=== PATIENT | male | born 2000 | race Caucasian/White ===

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

== ENCOUNTER 2018-03-05 22:55 | Emergency (ER) | payer MEDICAID, OTHER ==
[~2018-03-05 22:55] MED LIST changes: +BACT800T5 PO; +CEPH500T PO; -ZOFR20TA PO; +ZOFR4TAB16 PO
[2018-03-05] MEDS ORDERED: dexameTHASONE 20 MG/5 ML VIAL (J1100) IV ONE (23:15)
[2018-03-05] MEDS ORDERED: IPRATROPIUM 0.02% SOLN 0.5MG/2.5 ML NEB INH ONE (23:15)
[2018-03-06 00:09] LABS: INFLUENZA A AMPLIFICATION NEGATIVE (NEGATIVE); INFLUENZA B AMPLIFICATION NEGATIVE (NEGATIVE)
[2018-03-06 00:31] VITALS: BP 111/56
[2018-03-06] MEDS ORDERED: PRED20TA PO (00:32)
--- NOTE | 2018-03-06 06:23 | REP ---
Clinical: Cough . Comparison: 01/01/2017 . Technique: PA and lateral. Findings: The mediastinum and cardiac silhouette are normal. The lung leiva are clear and without acute consolidation, effusion, or pneumothorax. The skeletal structures are intact and normal. Impression: 1. No acute cardiopulmonary process. Electronically Signed by Jovanni Alas MD 03/06/2018 06:15 A
== END 2018-03-06 00:40 | disposition left against medical advice (07) ==
LOC: EDBD 22:55 → M ED 22:55
DX: J40 Bronchitis, not specified as acute or chronic (principal)
CPT/HCPCS: 71046; 87502; 94640; 96374; 99284; J1100

== ENCOUNTER → 2018-04-30 | Outpatient (REF) | payer OTHER ==
[~2018-04-30] MED LIST changes: +EX-L15TA PO; +MIRA3350 PO; +OMEP40CA2 PO; +PRED20TA PO; +PREV1CAP PO
== END ==
LOC: M SFHCPLAZ 10:02
PROVIDERS: ATTEND Family Medicine
DX: Z53.9 Procedure and treatment not carried out, unspecified reason (principal); R05 Cough

== ENCOUNTER 2018-05-27 19:28 | Observation (INO) | payer OTHER ==
[~2018-05-27] VITALS: Ht 157.5 cm; Wt 45.0 kg
[~2018-05-27 19:28] MED LIST changes: -EX-L15TA PO; -MIRA3350 PO; -OMEP40CA2 PO; -PREV1CAP PO
[2018-05-27] MEDS ORDERED: ONDANSETRON 4MG/2ML VIAL (J2405) IV ONE (20:00)
[2018-05-27] MEDS ORDERED: MORPHINE 4 MG/ML 1ML VIAL/SYRINGE (J2270) IV ONE (20:00)
[2018-05-27] MEDS ORDERED: NS 1,000 ML IV ONE (20:00)
[2018-05-27 20:26] LABS: BASO % 0.5 % (0.0-1.0); EOS % 0.2 % (0.0-3.0); HEMATOCRIT 45.3 % (42.0-52.0); HEMOGLOBIN 16.2 g/dl (13.5-17.5); LYMPH # 1.3 10^3/uL (1.5-6.5); LYMPH % 16.3 % (24.0-44.0); MEAN CORPUSCULAR HEMOGLOBIN 27.5 pg (27.0-33.0); MEAN CORPUSCULAR HGB CONC 35.8 g/dl (32.0-36.5); MEAN CORPUSCULAR VOLUME 76.8 fl (80.0-96.0); MONO # 0.2 10^3/uL (0.0-0.8); MONO % 2.7 % (0.0-5.0); NEUTROPHILS # 6.5 10^3/uL (1.8-7.7); NEUTROPHILS % 79.8 % (36.0-66.0); PLATELET COUNT, AUTOMATED 152 10^3/uL (150-450); WHITE BLOOD COUNT 8.1 10^3/uL (4.0-10.0)
[2018-05-27 20:31] LABS: INR 1.21; PROTHROMBIN TIME 15.5 SECONDS (12.1-14.4)
[2018-05-27 20:32] LABS: PARTIAL THROMBOPLASTIN TIME 28.1 SECONDS (25.4-37.6)
[2018-05-27 20:51] LABS: ALBUMIN 5.5 GM/DL (3.2-5.2); ALT/SGPT 15 U/L (12-78); AMYLASE 37 U/L (25-115); BILIRUBIN,DIRECT 0.3 MG/DL (0.0-0.2); BILIRUBIN,TOTAL 1.4 MG/DL (0.2-1.0); BLOOD UREA NITROGEN 8 MG/DL (7-18); CALCIUM LEVEL 9.5 MG/DL (8.5-10.1); CARBON DIOXIDE LEVEL 21 MEQ/L (21-32); CHLORIDE LEVEL 111 MEQ/L (98-107); CREATININE FOR GFR 1.08 MG/DL (0.70-1.30); GLUCOSE, FASTING 96 MG/DL (70-100); LIPASE 79 U/L (73-393); POTASSIUM SERUM 3.7 MEQ/L (3.5-5.1); SODIUM LEVEL 142 MEQ/L (136-145); TOTAL PROTEIN 8.4 GM/DL (6.4-8.2)
[2018-05-27] MEDS ORDERED: ISOVUE-370 76% 125ML VIAL (Q9967 PER ML) As Ordered ONE (21:12)
--- NOTE | 2018-05-27 22:08 | REPVR ---
EXAM: CT Abdomen and Pelvis With Contrast EXAM DATE/TIME: 05/27/2018 9:19 PM CLINICAL HISTORY: 17 years old, male; Pain; Abdominal pain; Additional info: Left abd pain TECHNIQUE: Axial computed tomography images of the abdomen and pelvis with intravenous contrast. All CT scans at this facility use at least one of these dose optimization techniques: automated exposure control; mA and/or kV adjustment per patient size (includes targeted exams where dose is matched to clinical indication); or iterative reconstruction. Coronal and sagittal reformatted images were created and reviewed. CONTRAST: Contrast Material: 100 ml of iso 370; Contrast Route: iv COMPARISON: CT ABD/PEL W/IV ORAL CONTRAS 05/31/2016 5:14 PM FINDINGS: Lower thorax: No acute findings. ABDOMEN: Liver: Normal. No mass. Gallbladder and bile ducts: Normal. No calcified stones. No ductal dilation. Pancreas: Normal. No ductal dilation. Spleen: Normal. No splenomegaly. Adrenals: Normal. No mass. Kidneys and ureters: Ptotic and malrotated left kidney which crosses just over midline to the right. Stomach and bowel: Short segment of intussusception involving a small bowel segment in left upper quadrant measuring approximately 3.3 cm in length. Appendix: A normal appendix is seen. PELVIS: Bladder: Unremarkable as visualized. Reproductive: Unremarkable as visualized. ABDOMEN and PELVIS: Intraperitoneal space: Normal. No free air. No significant fluid collection. Bones/joints: Deformity of the left femoral head and acetabulum with incomplete union between the acetabulum and the left superior pubic ramus. Soft tissues: Unremarkable. Vasculature: Normal. No abdominal aortic aneurysm. Lymph nodes: Normal. No enlarged lymph nodes. IMPRESSION: 1. Short segment of intussusception involving a small bowel segment in the left upper quadrant anterior to the spleen measuring 3.3 cm in length. 2. Otherwise, there has been little change from 05/31/2016. 3. Deformity of the left femoral head and acetabulum which may be developmental. 4. Ptotic and malrotated left kidney which extends slightly across midline to the right. Electronically signed by: Yoan Card On 05/27/2018 22:07:59 PM
[2018-05-28] MEDS ORDERED: NORCO, ANEXSIA 5/325MG TABLET (HYDROcodone/ACETAMINOPHEN) PO PRN
--- NOTE | 2018-05-28 00:06 | HPEPDOC ---
General Surgery H&P Date of Admission May 27, 2018 Attending Physician: MARGUERITE ROSENBERG MD History and Physical CHIEF COMPLAINT: Abdominal pain HISTORY OF PRESENT ILLNESS: Patient reports long-standing history of left-sided abdominal pain, fullness, sometimes black-appearing stools, fullness and loss of appetite that has worsened for the past couple of weeks. [place] and has gone back here in [place] because of the pain. He has been seen by his primary care doctor who has suggested him to be seen by a photography manager which he will be seeing in June. He reports at about 5:30 or 6 tonight he was on the serosa and soon as he took a bite of the fluid started having severe sharp left lower quadrant abdominal pain with nausea though no vomiting. This persisted prompting him to come to the emergency room. He has had no previous tests for his complaint. He was seen by a physician in [place] and suggested possibility of an ulcer and was given medication though he did not take the medication several whether this. He does not have any history of endoscopies and colonoscopies. ALLERGIES: Please see below. HOME MEDICATIONS: Please see below. 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 bilateral wrist surgery 2. left hip surgery PERSONAL/SOCIAL HISTORY: Reports smoking marijuana night to help him sleep REVIEW OF SYSTEMS: GENERAL: Denies chills, fatigue, fever, weight gain and weight loss. HEENT: Denies blurred vision and double vision. Denies ear symptoms. Denies hoarseness. NECK: Denies any neck pain. CARDIOVASCULAR: Denies chest pain and palpitations. MUSCULOSKELETAL: Patient weren't been shortened for limbs status post bilateral wrist surgery, left hip dysplasia status post left hip surgery SKIN: Denies rash. NEUROLOGIC: Denies headache, stroke and transient ischemic attack. PSYCHIATRIC: Reports being diagnosed with depressive symptoms but patient refuses to take any medications for this. ENDOCRINE: Denies thyroid disease. HEMATOLOGY/ONCOLOGY: Denies any bleeding or clotting disorder. HEART: Denies any chest pains, palpitations, paroxysmal dyspnea, orthopnea. PULMONARY: Denies chronic cough, dyspnea and wheezing. GASTROINTESTINAL: Reports chronic abdominal pain mainly in the left side. Not on any treatment for this. GENITOURINARY: Denies dysuria, frequency, hematuria and nocturia. ENDOCRINE: Denies polydipsia, polyphagia, polyuria, heat or cold intolerance. INFECTIOUS: Denies any recent upper respiratory tract infection, UTI, need for use of antibiotics. NUTRITION: Poor appetite. PHYSICAL EXAMINATION: VITAL SIGNS: Please see below. GENERAL APPEARANCE: Patient seen at bedside, appears comfortable. Awake, alert, oriented. HEENT: Normocephalic, atraumatic. [place] palpebral conjunctivae. Anicteric sc lerae. Lips moist. CHEST: No chest wall abnormalities. Normal respiratory motion/effort. NECK: Supple. No thyromegaly. No lymphadenopathies. LUNGS: Lung sounds are clear to auscultation bilaterally. No wheezing appreciated. HEART: No chest wall abnormalities. Heart rate and rhythm are regular with no murmurs. ABDOMEN: Abdomen is relatively flat, soft, nondistended. No surgical scars. No umbilical or groin hernias bilaterally. He has tenderness on palpation over left lower quadrant and left upper quadrant area without rebound or guarding (areas of tenderness also not consistent and when distracted seems to have less discomfort) SKIN: Warm, moist. EXTREMITIES: shortened forearms bilaterally NEUROLOGICAL: Awake, alert, oriented ANCILLARIES: . LABORATORY DATA: Please see below. MICROBIOLOGY: Please see below. IMAGING: CT scan abdomen and pelvis 1. Short segment of intussusception involving a small bowel segment in the left upper quadrant anterior to the spleen measuring 3.3 cm in length. 2. Otherwise, there has been little change from 05/31/2016. 3. Deformity of the left femoral head and acetabulum which may be developmental. 4. Ptotic and malrotated left kidney which extends slightly across midline to the right. IMPRESSION AND PLAN: Abdominal pain Intussusception on CT Chronic abdominal pain His abdominal examination is pretty benign despite complaints of left lower quadrant pain and tenderness and does not note any distended at all. I have explained to them that most of this time intussusception findings on CT without accompanying obstructive changes are mostly incidental and transient in nature. He'll keep in also for observation and will ask radiology to perform a small bowel follow through in the morning to verify if there is persistent intussuscep tion and see if there is any etiology we can find to explain this findings or his abdominal pain. Vital Signs Vital Signs Date Time Temp Pulse Resp B/P (MAP) Pulse Ox O2 Delivery O2 Flow Rate FiO2 05/27/18 21:08 88 16 05/27/18:45 05/27/18 19:29 98.1 99 Room Air Laboratory Data Labs 24H Laboratory Tests 2 05/27/18 20:09: Prothrombin Time 15.5H, Prothromb Time International Ratio 1.21, Activated Partial Thromboplast Time 28.1 05/27/18 20:10: Immature Granulocyte % (Auto) 0.5, White Blood Count 8.1, Red Blood Count 5.90, Hemoglobin 16.2, Hematocrit 45.3, Mean Corpuscular Volume 76.8L, Mean Corpuscular Hemoglobin 27.5, Mean Corpuscular Hemoglobin Concent 35.8, Red Cell Distribution Width 13.2, Platelet Count 152, Neutrophils (%) (Auto) 79.8H, Lymphocytes (%) (Auto) 16.3L, Monocytes (%) (Auto) 2.7, Eosinophils (%) (Auto) 0.2, Basophils (%) (Auto) 0.5, Neutrophils # (Auto) 6.5, Lymphocytes # (Auto) 1.3L, Monocytes # (Auto) 0.2, Eosinophils # (Auto) 0.0, Basophils # (Auto) 0.0, Nucleated Red Blood Cells % (auto) 0.0, Anion Gap 10, Calcium Level 9.5, Aspartate Amino Transf (AST/SGOT) 18, Alanine Aminotransferase (ALT/SGPT) 15, Alkaline Phosphatase 61, Total Bilirubin 1.4H, Direct Bilirubin 0.3H, Total Protein 8.4H, Albumin 5.5H, Albumin/Globulin Ratio 1.90, Amylase Level 37, Lipase 79 CBC/BMP Laboratory Tests 05/27/18 20:10 Red Blood Count 5.90, Mean Corpuscular Volume 76.8 L, Mean Corpuscular Hemoglobin 27.5, Mean Corpuscular Hemoglobin Concent 35.8, Red Cell Distribution Width 13.2, Neutrophils (%) (Auto) 79.8 H, Lymphocytes (%) (Auto) 16.3 L, Monocytes (%) (Auto) 2.7, Eosinophils (%) (Auto) 0.2, Basophils (%) (Auto) 0.5, Neutrophils # (Auto) 6.5, Lymphocytes # (Auto) 1.3 L, Monocytes # (Auto) 0.2, Eosinophils # (Auto) 0.0, Basophils # (Auto) 0.0 Home Medications Scheduled Lansoprazole (Prevacid) 30 Mg Cap, 30 MG PO DAILY Allergies Coded Allergies: MS - Vancomycin (Verified Allergy, Intermediate, rash, 04/20/17) MS - Penicillins (Verified Allergy, Unknown, 04/19/17) MARGUERITE ROSENBERG MD May 28, 2018 00:06
[2018-05-28] MEDS: KETOROLAC 30 MG/ML VIAL (J1885) IV PRN ×2 (01:37→09:55)
[2018-05-28 02:00] VITALS: BP 140/86
[2018-05-28] MEDS: LR 1,000 ML IV SCH ×3 (02:11→18:00)
[2018-05-28 06:00] VITALS: BP 152/82
[2018-05-28] MEDS ORDERED: MORPHINE 4 MG/ML 1ML VIAL/SYRINGE (J2270) IV ONE (06:15)
[2018-05-28 06:49] LABS: HEMATOCRIT 45.3 % (42.0-52.0); HEMOGLOBIN 15.4 g/dl (13.5-17.5); MEAN CORPUSCULAR HEMOGLOBIN 27.5 pg (27.0-33.0); MEAN CORPUSCULAR VOLUME 80.7 fl (80.0-96.0); PLATELET COUNT, AUTOMATED 151 10^3/uL (150-450); RED BLOOD COUNT 5.61 10^6/uL (4.30-6.10); WHITE BLOOD COUNT 13.6 10^3/uL (4.0-10.0)
[2018-05-28 07:09] LABS: BLOOD UREA NITROGEN 8 MG/DL (7-18); CALCIUM LEVEL 9.2 MG/DL (8.5-10.1); CARBON DIOXIDE LEVEL 18 MEQ/L (21-32); CHLORIDE LEVEL 110 MEQ/L (98-107); CREATININE FOR GFR 1.18 MG/DL (0.70-1.30); GLUCOSE, FASTING 119 MG/DL (70-100); POTASSIUM SERUM 3.1 MEQ/L (3.5-5.1); SODIUM LEVEL 141 MEQ/L (136-145)
[2018-05-28 07:56] LABS: LYMPHOCYTES 34 % (16-52); METAMYELOCYTES 1 % (0-0); MONOCYTES 6 % (0-8); NEUTROPHILS 57 % (35-75)
[2018-05-28 07:58] LABS: ANISOCYTOSIS 1+; PLATELET ESTIMATE NORMAL (NORMAL)
[2018-05-28 08:23] VITALS: BP 129/72
[2018-05-28] MEDS: PANTOPRAZOLE 40MG INJ (PROTONIX) (C9113) IV SCH (09:00)
[2018-05-28] MEDS: POTASSIUM CHLORIDE 10 MEQ SR TABLET PO SCH (09:00)
--- NOTE | 2018-05-28 10:13 | IPNPDOC ---
Subjective General Date/Time Seen The patient was seen on 05/28/18 at 10:01. Subject Chief Complaint/History The patient is a 17-year-old male admitted with a reason for visit of Abdominal Pain. He had an episode this morning when he woke up that he had some sort of panic attack reported some impending sense of doom, visual hallucination. This coincided a couple hours after he got Brooks also. His pain is improved, minimal pain located over the left side of the abdomen. He denies any nausea. His last bowel movement was yesterday prior to his presentation. He has been afebrile. Current Medications Current Medications Current Medications Acetaminophen/ Hydrocodone Bitart (Brooks, Anexsia 5/325) 1 tab Q4HP PRN PO MODERATE PAIN (PS 5-7) Last administered on 05/28/18at 03:31; Start 05/28/18 at 00:00 Home Med (Med Rec Complete!) ASDIRECTED XX ; Start 05/28/18 at 00:15; Stop 05/28/18 at 00:15; Status DC Ketorolac Tromethamine (ToRADol) 15 mg Q6HP PRN IV MILD/MODERATE PAIN (PS 1-7) Last administered on 05/28/18at 09:55; Start 05/28/18 at 00:00; Stop 06/02/18 at 00:00 Lactated Ringer's 1,000 ml @ 125 mls/hr Q8H IV Last administered on 05/28/18at 07:48; Start 05/27/18 at 23:48 Pantoprazole Sodium (Protonix) 40 mg DAILY IV Last administered on 05/28/18at 09:00; Start 05/28/18 at 09:00 Allergies Coded Allergies: MS - Vancomycin (Verified Allergy, Intermediate, rash, 04/20/17) MS - Penicillins (Verified Allergy, Unknown, 04/19/17) Objective Physical Examination Examination GENERAL APPEARANCE: Looks more comfortable this morning though when I woke him up from sleep, he immediately jumped out of bed, anxious appearing. SKIN: Warm and dry. HEENT: Normocephalic, atraumatic. [place] palpebral conjunctiva, anicteric sclerae. Lips and mucosa appear moist. NECK: Supple, no thyromegaly. No obvious jugular venous distention. LUNGS: Clear to auscultation bilaterally. No wheezing appreciated. HEART: No chest wall abnormalities. Regular rate and rhythm with no murmurs appreciated. ABDOMEN: Abdomen is flat, soft, nondistended. He has point tenderness over the left side of the abdomen along the line of the umbilical area minimal tenderness in the left upper quadrant and left lower quadrant area. No guarding. Minimal tenderness at the periumbilical area. Nontender in the right side of the abdomen.. EXTREMITIES: Short forearms bilaterally.. Vital Signs Vital Signs Date Time Temp Pulse Resp B/P (MAP) Pulse Ox O2 Delivery O2 Flow Rate FiO2 05/28/18 08:23 75 18 129/72 (91) 100 05/28/18 06:00 97.6 05/28/18 01:25 Room Air I&Os I&O- Last 24 Hours up to 6 AM 05/28/18 05:59 Intake Total 250 ml Balance 250 ml Laboratory Data Labs 24H Laboratory Tests 2 05/27/18 20:09: Prothrombin Time 15.5H, Prothromb Time International Ratio 1.21, Activated Partial Thromboplast Time 28.1 05/27/18 20:10: Immature Granulocyte % (Auto) 0.5, White Blood Count 8.1, Red Blood Count 5.90, Hemoglobin 16.2, Hematocrit 45.3, Mean Corpuscular Volume 76.8L, Mean Corpuscular Hemoglobin 27.5, Mean Corpuscular Hemoglobin Concent 35.8, Red Cell Distribution Width 13.2, Platelet Count 152, Neutrophils (%) (Auto) 79.8H, Lymphocytes (%) (Auto) 16.3L, Monocytes (%) (Auto) 2.7, Eosinophils (%) (Auto) 0.2, Basophils (%) (Auto) 0.5, Neutrophils # (Auto) 6.5, Lymphocytes # (Auto) 1.3L, Monocytes # (Auto) 0.2, Eosinophils # (Auto) 0.0, Basophils # (Auto) 0.0, Nucleated Red Blood Cells % (auto) 0.0, Anion Gap 10, Calcium Level 9.5, Aspartate Amino Transf (AST/SGOT) 18, Alanine Aminotransferase (ALT/SGPT) 15, Alkaline Phosphatase 61, Total Bilirubin 1.4H, Direct Bilirubin 0.3H, Total Protein 8.4H, Albumin 5.5H, Albumin/Globulin Ratio 1.90, Amylase Level 37, Lipase 79 05/28/18 06:34: White Blood Count 13.6H, Red Blood Count 5.61, Hemoglobin 15.4, Hematocrit 45.3, Mean Corpuscular Volume 80.7, Mean Corpuscular Hemoglobin 27.5, Mean Corpuscular Hemoglobin Concent 34.0, Red Cell Distribution Width 13.2, Platelet Count 151, Lymphocytes # (Auto) , Nucleated Red Blood Cells % (auto) 0.0, Anion Gap 13, Calcium Level 9.2, Neutrophils 57, Band Neutrophils 2, Lymphocytes (Manual) 34, Monocytes (Manual) 6, Metamyelocytes 1H, Platelet Estimate NORMAL, Anisocytosis 1+, Blood Urea Nitrogen 8, Creatinine 1.18, Sodium Level 141, Potassium Level 3.1L, Chloride Level 110H, Carbon Dioxide Level 18L CBC/BMP Laboratory Tests 05/27/18 20:10 Red Blood Count 5.90, Mean Corpuscular Volume 76.8 L, Mean Corpuscular Hemoglobin 27.5, Mean Corpuscular Hemoglobin Concent 35.8, Red Cell Distribution Width 13.2, Neutrophils (%) (Auto) 79.8 H, Lymphocytes (%) (Auto) 16.3 L, Monocytes (%) (Auto) 2.7, Eosinophils (%) (Auto) 0.2, Basophils (%) (Auto) 0.5, Neutrophils # (Auto) 6.5, Lymphocytes # (Auto) 1.3 L, Monocytes # (Auto) 0.2, Eosinophils # (Auto) 0.0, Basophils # (Auto) 0.0 05/28/18 06:34 Red Blood Count 5.61, Mean Corpuscular Volume 80.7, Mean Corpuscular Hemoglobin 27.5, Mean Corpuscular Hemoglobin Concent 34.0, Red Cell Distribution Width 13.2, Lymphocytes # (Auto) , Calcium Level 9.2 Impression Abdominal pain, acute on chronic Intussusception on CT Patient definitely is better and is not showing any signs of obstruction (abdominal distention, nausea and vomiting) his abdominal exam is benign. My suspicion is the intussusception is a transient thing on the CT and does not really explain his chronic abdominal discomfort. It is not clear if he had some reaction to the Brooks aureus some panic attacks from the episode this morning. For now we'll hold off on the Brooks. He got morphine without any adverse events yesterday. He is also on Toradol IV for now. He does not want any psychogenic drugs to address the possibility of anxiety attack or panic attack. I will await the results of the small bowel follow-through. Plan / VTE VTE Prophylaxis Ordered?: No VTE Exclusion Mechanical Proph: Low Risk for VTE MARGUERITE ROSENBERG MD May 28, 2018 10:05
[2018-05-28] MEDS ORDERED: E-Z-GAS II EFFERVESCENT PACKET (SODIUM BICARB./CITRIC ACID/SIMETHICONE) As Ordered ONE (11:03)
[2018-05-28] MEDS ORDERED: E-Z-PAQUE 96% w/w SUSP 176GM BTL As Ordered ONE (11:03)
[2018-05-28] MEDS ORDERED: E-Z-HD 98% w/w 340GM SUSP BTL As Ordered ONE (11:04)
[2018-05-28 14:00] VITALS: BP 150/84
[2018-05-28 15:09] VITALS: BP 126/82
[2018-05-28 20:00] VITALS: BP 135/64
[2018-05-29] MEDS: LR 1,000 ML IV SCH (00:54)
[2018-05-29 05:00] VITALS: BP 120/70
[2018-05-29 06:49] LABS: BASO % 0.5 % (0.0-1.0); EOS # 0.1 10^3/uL (0.0-0.50); EOS % 1.5 % (0.0-3.0); HEMATOCRIT 37.9 % (42.0-52.0); LYMPH % 29.8 % (24.0-44.0); MEAN CORPUSCULAR HEMOGLOBIN 27.2 pg (27.0-33.0); MEAN CORPUSCULAR HGB CONC 34.8 g/dl (32.0-36.5); MEAN CORPUSCULAR VOLUME 78.1 fl (80.0-96.0); MONO # 0.3 10^3/uL (0.0-0.8); MONO % 5.2 % (0.0-5.0); NEUTROPHILS # 4.1 10^3/uL (1.8-7.7); NEUTROPHILS % 62.7 % (36.0-66.0); PLATELET COUNT, AUTOMATED 105 10^3/uL (150-450); RED BLOOD COUNT 4.85 10^6/uL (4.30-6.10); WHITE BLOOD COUNT 6.6 10^3/uL (4.0-10.0)
[2018-05-29 06:59] LABS: HEMOGLOBIN 13.2 g/dl (13.5-17.5)
[2018-05-29 07:14] LABS: ALBUMIN 4.1 GM/DL (3.2-5.2); ALT/SGPT 16 U/L (12-78); BILIRUBIN,TOTAL 1.1 MG/DL (0.2-1.0); BLOOD UREA NITROGEN 10 MG/DL (7-18); C REACTIVE PROTEIN QUANTITATIV < 0.30 MG/DL (0.00-0.30); CALCIUM LEVEL 8.8 MG/DL (8.5-10.1); CARBON DIOXIDE LEVEL 25 MEQ/L (21-32); CHLORIDE LEVEL 109 MEQ/L (98-107); CREATININE FOR GFR 0.92 MG/DL (0.70-1.30); GLUCOSE, FASTING 73 MG/DL (70-100); POTASSIUM SERUM 3.8 MEQ/L (3.5-5.1); SODIUM LEVEL 140 MEQ/L (136-145); TOTAL PROTEIN 6.3 GM/DL (6.4-8.2)
[2018-05-29] MEDS ORDERED: MOM 30ML SUSPENSION UDC PO ONE (08:00)
[2018-05-29] MEDS: POTASSIUM CHLORIDE 10 MEQ SR TABLET PO SCH (08:11)
[2018-05-29] MEDS: PANTOPRAZOLE 40MG INJ (PROTONIX) (C9113) IV SCH (08:12)
--- NOTE | 2018-05-29 08:23 | IPNPDOC ---
Subjective General Date/Time Seen The patient was seen on 05/29/18 at 06:53. Subject Chief Complaint/History The patient is a 17-year-old male admitted with a reason for visit of Abdominal Pain. Patient reports he is feeling much better today. No murmur abdominal pain. Good appetite. Tolerating regular food. He feels constipated. Current Medications Current Medications Current Medications Acetaminophen/ Hydrocodone Bitart ([place], Anexsia 5/325) 1 tab Q4HP PRN PO MODERATE PAIN (PS 5-7) Last administered on 05/28/18at 03:31; Start 05/28/18 at 00:00 Home Med (Med Rec Complete!) ASDIRECTED XX ; Start 05/28/18 at 00:15; Stop at 00:15; Status DC Ketorolac Tromethamine (ToRADol) 15 mg Q6HP PRN IV MILD/MODERATE PAIN (PS 1-7) Last administered on 05/28/18at 09:55; Start 05/28/18 at 00:00; Stop 06/02/18 at 00:00 Lactated Ringer's 1,000 ml @ 125 mls/hr Q8H IV Last administered on 05/29/18at 00:54; Start 05/27/18 at 23:48; Stop 05/29/18 at 05:31; Status DC Pantoprazole Sodium (Protonix) 40 mg DAILY IV Last administered on 05/28/18at 09:00; Start 05/28/18 at 09:00 Potassium Chloride (Micro-K Extencaps) 40 meq DAILY PO Last administered on 05/28/18at 09:00; Start 05/28/18 at 09:00 Allergies Coded Allergies: Vancomycin (Verified Allergy, Intermediate, rash, 04/20/17) Penicillins (Verified Allergy, Unknown, 04/19/17) Objective Physical Examination Examination GENERAL APPEARANCE: Comfortable. SKIN: [Warm and moist]. HEENT: [Normocephalic, atraumatic. [place] palpebral conjunctiva, anicteric sclerae. Lips and mucosa appear moist]. NECK: [Supple, no thyromegaly. No obvious jugular venous distention]. LUNGS: [Clear to auscultation bilaterally. No wheezing appreciated]. HEART: [No chest wall abnormalities. Regular rate and rhythm with no murmurs appreciated]. ABDOMEN: Abdomen is flat, soft, nondistended. Nontender on palpation. Vital Signs Vital Signs Date Time Temp Pulse Resp B/P (MAP) Pulse Ox O2 Delivery O2 Flow Rate FiO2 05/29/18 05:00 98.3 88 18 120/70 (87) 97 05/28/18 01:25 Room Air I&Os I&O- Last 24 Hours up to 6 AM 05/29/18 06:00 Intake Total 1630 ml Output Total 1300 ml Balance 330 ml Laboratory Data Labs 24H Laboratory Tests 2 05/29/18 06:26: CBC/BMP Imaging Studies UGIS with SBFT gastroesophageal reflux no obstruction no intussusception seen - probably transient Impression abdominal pain transient intussusception Gastroesophageal reflux Constipation regular diet 1 dose of milk of magnesia today for the constipation I discussed with him the results of the small bowel follow-through yesterday. There is no obstruction or intussusception seen. There is good flow of contrast through to the colon. There is reflux demonstrated in the upper GI series. Otherwise normal study. Thus the intussusception most likely is transient. Unclear if this is the one that caused him his pain and discomfort as he has been having chronic abdominal pain. He will be discharged home today. He can follow-up in the clinic with me. Plan to do most likely upper endoscopy for f urther evaluation as an outpatient. Plan / VTE VTE Prophylaxis Ordered?: No VTE Exclusion Mechanical Proph: Low Risk for VTE MARGUERITE ROSENBERG MD May 29, 2018 06:56
[2018-05-29] MEDS ORDERED: PREV1CAP PO (08:25)
--- NOTE | 2018-05-29 21:19 | REP ---
UPPER GI AIR CONTRAST AND SMALL BOWEL FOLLOW-THROUGH The procedure was performed under the direct supervision of Dr. briggs. The images were reviewed with Dr. briggs. The senior sales compensation analyst film shows no organomegaly or pathological masses. The test gas pattern is nonspecific. There is residual contrast in the bladder from the patient's CT scan. There is deformity of the left femoral head and acetabulum which may be developmental. Liquid barium and gas producing granules and given in the erect position as well as liquid barium in the prone oblique position in order to perform a double contrast upper GI examination. Additionally liquid barium was given at the end of the examination in order to perform a small bowel follow-through. Exam is limited as the patient was unable to drink most of the barium. The oral and pharyngeal stages of deglutition are unremarkable. Esophageal transport is prompt and efficient and there is no esophagitis stricture mucosal ring or hiatal hernia. There is gastroesophageal reflux demonstrated to below the level of the amilcar. The stomach is grossly normal. The rugal folds are smooth and regular. There is no evidence of gastritis neoplasm or ulcer disease. The alignment proceed normal. The rugal folds are smooth and regular. There is no evidence of duodenitis pancreatitis peptic ulcer disease or neoplasm. The visualized portion of the proximal small bowel appears normal in course and caliber. The barium column was followed through the small bowel to the level of the terminal ileum. Small bowel transit time is approximately 90 minutes. During fluoroscopy gentle palpation shows all loops are freely movable and pliable. There are no fixed or angulated loops. The small bowel mucosal pattern is normal in course and caliber. There is no transition to suggest a partial small-bowel obstruction. Spot filming of the terminal ileum shows it to be unremarkable. The CT findings are likely and transient and incidental finding. Impression: 1. There is gastroesophageal reflux demonstrated to below the level of the amilcar. 2. Small bowel follow-through examination within normal limits. The CT findings are likely a transient and incidental finding. 1.8 minutes of fluoroscopy time was utilized for this procedure. Reviewed by ADRIANNE iMchael 05/28/2018 04:34 P Electronically Signed by Roosevelt Briggs MD 05/29/2018 09:10 P
--- NOTE | 2018-06-05 16:54 | DS.PDOC ---
Discharge Summary General Date of Admission May 27, 2018 at 23:48 Date of Discharge 05/29/2018 Attending Physician: MARGUERITE ROSENBERG MD Discharge Summary PROCEDURES PERFORMED DURING STAY: None. ADMITTING DIAGNOSES: 1. Left-sided abdominal pain acute on chronic 2. Intussusception of small bowel without any accompanying signs of obstruction. DISCHARGE DIAGNOSES: 1. Left-sided abdominal pain, acute on chronic. 3 transient intussusception of small bowel without any accompanying signs of obstruction resolved COMPLICATIONS/CHIEF COMPLAINT: Abdominal Pain. HISTORY OF PRESENT ILLNESS: Patient reports long-standing history of left-sided abdominal pain, fullness, sometimes black-appearing stools, fullness and loss of appetite that has worsened for the past couple of weeks. He has been staying in [facility] and has gone back here in [place] because of the pain. He has been seen by his primary care doctor who has suggested him to be seen by a data entry which he will be seeing in June. He reports at about 5:30 or 6 tonight he was on the serosa and soon as he took a bite of the fluid started having severe sharp left lower quadrant abdominal pain with nausea though no vomiting. This persisted prompting him to come to the emergency room. He has had no previous tests for his complaint. He was seen by a physician in [place] and suggested possibility of an ulcer and was given medication though he did not take the medication several whether this. He does not have any history of endoscopies and colonoscopies. HOSPITAL COURSE: Patient presented with exacerbation of chronic abdominal pain. This is mainly located on the left side of his abdomen both left upper quadrant and left lower quadrant area. He was evaluated in the emergency room. He had normal labs. On CT he was found to have a small bowel intussusception located at the left upper quadrant area. Did have some nausea and vomiting but later time he was evaluated after the CT scan he was no longer having any nausea though he persists to have pain and tenderness on the left side of his abdomen. I admitted him for observation and for treatment of the abdominal pain with plans to do an upper GI series and small bowel follow-through the following day. On the small bowel follow-through there were no evidence of obstruction, intussusception, inflammation on the small bowel. His pain improved after having bowel movements. He was able to tolerate regular food and subsequently discharged home. DISCHARGE MEDICATIONS: Please see below. ALLERGIES: Please see below. PHYSICAL EXAMINATION ON DISCHARGE: VITAL SIGNS: Please see below. GENERAL: Comfortable HEENT: Normocephalic, atraumatic, pink palpebral conjunctiva, anicteric sclerae NECK: Supple, no jugular venous distention CARDIOVASCULAR EXAMINATION:. Heart rate and rhythm with no murmurs RESPIRATORY EXAMINATION: Clear breath sounds auscultation bilaterally with no wheezing ABDOMINAL EXAMINATION: Flat, soft, nontender on palpation, nondistended EXTREMITIES: Shortened bilateral upper extremity SKIN: No skin rashes, no jaundice NEUROLOGICAL EXAMINATION: Awake, alert, oriented PSYCHIATRIC EXAMINATION: Mood and affect appears normal LABORATORY DATA: Please see below. IMAGING: CT scan of the abdomen and pelvis done in the ER followed by upper GI series with small bowel follow-through on hospital day 1 PROGNOSIS: Good ACTIVITY: As tolerated. DIET: As tolerated DISCHARGE PLAN: Patient is to be discharged home. I told him if he continues to have pain I would consider doing upper endoscopy and colonoscopy for further workup of his pain. I reassured him that the intussusception is most likely transient and given that he has chronic abdominal pain may not be the cause of this especially in light of that he wasn't having any obstruction symptoms. DISPOSITION: 01 Home, Self-Care. DISCHARGE INSTRUCTIONS: 1. As above 2. Follow-up with me in 2 weeks. DISCHARGE CONDITION: Stable. TIME SPENT ON DISCHARGE: Greater than 30 minutes. Discharge Medications Scheduled Lansoprazole (Prevacid) 30 Mg Cap, 30 MG PO DAILY Allergies Coded Allergies: MS - Vancomycin (Verified Allergy, Intermediate, rash, 04/20/17) MS - Penicillins (Verified Allergy, Unknown, 04/19/17) MARGUERITE ROSENBERG MD Jun 05, 2018 16:54
== END 2018-05-29 09:35 | disposition home or self-care (01) ==
LOC: M ED 19:28 → M ED INP 23:48 → M MS4PR 05-28 01:51
PROVIDERS: ADMIT Surgery; ATTEND Surgery
DX: R10.32 Left lower quadrant pain (principal); K56.1 Intussusception; K21.9 Gastro-esophageal reflux disease without esophagitis; K59.00 Constipation, unspecified; Z79.899 Other long term (current) drug therapy; Z88.0 Allergy status to penicillin
CPT/HCPCS: 36415; 74177; 74245; 80048; 80053; 80076; 82150; 83690; 85025; 85610; 85730; 86140; 86850; 86900; 86901; 96361; 96374; 96375; 96376; 99284; C9113; J1885; J2270; J2405; Q9967

== ENCOUNTER 2018-06-08 12:16 | Emergency (ER) | payer OTHER ==
[~2018-06-08] VITALS: Ht 157.5 cm; Wt 43.2 kg
[~2018-06-08 12:16] MED LIST changes: +ACET-716 PO; -ACET30TAB PO; -NORC1TAB4 PO; +NORC1TAB7 PO; +PREV1CAP PO
[2018-06-08] MEDS ORDERED: OMEP40CA2 PO (12:26)
[2018-06-08] MEDS ORDERED: MIRA3350 PO (12:26)
[2018-06-08] MEDS ORDERED: EX-L15TA PO (12:26)
[2018-06-08] MEDS ORDERED: NS 1,000 ML IV SCH (12:32)
[2018-06-08] MEDS ORDERED: PANTOPRAZOLE 40MG INJ (PROTONIX) (C9113) IV ONE (12:45)
[2018-06-08] MEDS: ONDANSETRON 4MG/2ML VIAL (J2405) IV ONE ×2 (12:45→13:06)
[2018-06-08] MEDS: KETOROLAC 30 MG/ML VIAL (J1885) IV ONE ×2 (12:45→13:06)
[2018-06-08 13:11] LABS: BASO % 0.6 % (0.0-1.0); EOS # 0.1 10^3/uL (0.0-0.50); EOS % 1.2 % (0.0-3.0); HEMATOCRIT 42.4 % (42.0-52.0); LYMPH # 1.8 10^3/uL (1.5-6.5); LYMPH % 26.3 % (24.0-44.0); MEAN CORPUSCULAR HEMOGLOBIN 27.6 pg (27.0-33.0); MEAN CORPUSCULAR HGB CONC 35.4 g/dl (32.0-36.5); MEAN CORPUSCULAR VOLUME 78.1 fl (80.0-96.0); MONO # 0.3 10^3/uL (0.0-0.8); MONO % 4.3 % (0.0-5.0); NEUTROPHILS # 4.4 10^3/uL (1.8-7.7); NEUTROPHILS % 66.4 % (36.0-66.0); PLATELET COUNT, AUTOMATED 158 10^3/uL (150-450); RED BLOOD COUNT 5.43 10^6/uL (4.30-6.10); WHITE BLOOD COUNT 6.7 10^3/uL (4.0-10.0)
[2018-06-08 13:45] LABS: INR 1.23; PROTHROMBIN TIME 15.7 SECONDS (12.1-14.4)
[2018-06-08 13:49] LABS: ALBUMIN 4.7 GM/DL (3.2-5.2); ALT/SGPT 15 U/L (12-78); AMYLASE 37 U/L (25-115); BILIRUBIN,DIRECT 0.2 MG/DL (0.0-0.2); BILIRUBIN,TOTAL 1.2 MG/DL (0.2-1.0); BLOOD UREA NITROGEN 13 MG/DL (7-18); CARBON DIOXIDE LEVEL 22 MEQ/L (21-32); CHLORIDE LEVEL 108 MEQ/L (98-107); CREATININE FOR GFR 0.86 MG/DL (0.70-1.30); GLUCOSE, FASTING 89 MG/DL (70-100); LIPASE 95 U/L (73-393); POTASSIUM SERUM 4.1 MEQ/L (3.5-5.1); SODIUM LEVEL 141 MEQ/L (136-145); TOTAL PROTEIN 7.1 GM/DL (6.4-8.2)
--- NOTE | 2018-06-08 14:13 | REP ---
Clinical: Right upper quadrant abdominal pain. Technique: Briggs scale ultrasound using curved array transducer. Findings: The liver and pancreas are normal in contour, size, and echogenicity without focal hepatic or pancreatic lesions identified. The gallbladder is normal without gallstones, wall thickening or pericholecystic fluid. No biliary ductal dilatation is appreciated, and the common bile duct measures 3.2 mm diameter. The right kidney is normal in reniform shape without hydronephrosis and measures 8.7 x 4.6 x 3.8 cm. No ascites. Visualized portions of the abdominal aorta normal. Impression: Normal right upper quadrant and gallbladder abdominal ultrasound. Electronically Signed by Jovanni Alas MD 06/08/2018 02:04 P
[2018-06-08] MEDS: GASTROGRAFIN SOLUTION 30ML PO SCH ×2 (14:45→15:20)
[2018-06-08] MEDS ORDERED: ISOVUE-370 76% 125ML VIAL (Q9967 PER ML) As Ordered ONE (16:12)
--- NOTE | 2018-06-08 16:54 | REP ---
Clinical: Acute abdominal pain. Technique: Axial contrast enhanced images from the lung bases to the pubic symphysis using oral (per protocol) and 100 ml Isovue 370 intravenous contrast material with coronal and sagittal re-formations. Comparison: 05/27/2018, 05/31/2016. Findings: Lung bases are clear. Visualized heart and pericardium normal. Liver, spleen, pancreas, gallbladder, bilateral adrenal glands, right kidney are essentially normal. The left kidney is malrotated and displaced inferiorly and medially within the abdomen minimally crossing midline, but without evidence for hydronephrosis or further abnormality. The enteric system is without obstruction or acute inflammatory process. Normal terminal ileum and appendix identified in the right lower quadrant. Pelvis demonstrates normal bladder and age appropriate prostate/seminal vesicles. Fluid versus testicle identified in the left inguinal canal warrants clinical/historical correlation. No ascites. No free air. No adenopathy. Skeletal structures demonstrate chronic post traumatic versus congenital changes involving the left hip. Impression: 1. No acute abdominopelvic pathology appreciated. 2. Fluid versus undescended testicle in the left inguinal canal warrants clinical and historical correlation. 3. 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 4. 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 Electronically Signed by Jovanni Alas MD 06/08/2018 04:45 P
[2018-06-08 17:15] VITALS: BP 126/85
[2018-06-09] MEDS ORDERED: TRAM50TA2 PO (22:52)
--- NOTE | 2018-06-10 09:23 | ED PDOC ---
Post-Departure Follow-Up dr cottrell faxed formal report of ct abd/p for fu Kristin Looney MD Jun 10, 2018 09:23
[2018-06-27] MEDS ORDERED: SUCR1SUS PO (15:09)
[2018-06-27] MEDS ORDERED: ALBU83IN INH (15:16)
[2018-06-27] MEDS ORDERED: GNP1CRE5 EX (15:26)
== END 2018-06-08 17:44 | disposition home or self-care (01) ==
LOC: M ED 12:16
DX: R10.9 Unspecified abdominal pain (principal); Z79.899 Other long term (current) drug therapy; Z88.0 Allergy status to penicillin; Z88.1 Allergy status to other antibiotic agents
CPT/HCPCS: 36415; 74177; 76705; 80048; 80076; 81001; 82150; 83690; 85025; 85610; 96374; 99285; C9113; Q9963; Q9967

== ENCOUNTER 2018-06-09 20:59 | Emergency (ER) | payer OTHER ==
[~2018-06-09] VITALS: Ht 157.5 cm; Wt 43.2 kg
[~2018-06-09 20:59] MED LIST changes: +EX-L15TA PO; +MIRA3350 PO; +OMEP40CA2 PO
[2018-06-09 21:18] VITALS: BP 115/67
[2018-06-09] MEDS ORDERED: KETOROLAC TROMETHAMINE 10 MG TAB PO ONE (22:00)
--- NOTE | 2018-06-09 22:27 | REPVR ---
EXAM: US Scrotum EXAM DATE/TIME: 06/09/2018 10:11 PM CLINICAL HISTORY: 17 years old, male; Pain; Scrotum pain; Additional info: Pain left testicle TECHNIQUE: Imaging protocol: Real-time ultrasound of the scrotum and contents with color Doppler and image documentation. COMPARISON: No relevant prior studies available. FINDINGS: Right Testicle: The right testis is normal in size, shape, and echotexture. No intratesticular mass. No torsion. Left Testicle: The left testis is normal in size, shape, and echotexture. No testicular mass. No torsion. Epididymides: The right epididymis has a normal appearance. There is a 2 mm cyst within the left epididymal head. The left epididymis is otherwise unremarkable. Scrotum: Normal. IMPRESSION: Normal testes. No testicular mass or torsion. Electronically signed by: Tylor Watkins On 06/09/2018 22:27:19 PM
[2018-06-09] MEDS ORDERED: TRAM50TA2 PO (22:52)
[2018-06-09] MEDS ORDERED: traMADol 50 MG TAB (BULK 4 TAB ED) PO ONE (23:00)
[2018-06-27] MEDS ORDERED: SUCR1SUS PO (15:09)
[2018-06-27] MEDS ORDERED: ALBU83IN INH (15:16)
[2018-06-27] MEDS ORDERED: GNP1CRE5 EX (15:26)
== END 2018-06-09 23:16 | disposition home or self-care (01) ==
LOC: M ED 20:59
DX: N50.812 Left testicular pain (principal); Q87.2 Congenital malformation syndromes predominantly involving limbs; Z79.899 Other long term (current) drug therapy; Z88.0 Allergy status to penicillin; Z88.1 Allergy status to other antibiotic agents

== ENCOUNTER 2018-06-15 09:48 | Emergency (ER) | payer OTHER ==
[~2018-06-15] VITALS: Ht 157.5 cm; Wt 41.8 kg
[~2018-06-15 09:48] MED LIST changes: +TRAM50TA2 PO
[2018-06-15] MEDS ORDERED: MORPHINE 2 MG/ML 1ML SYRINGE (J2270) IV ONE (10:30)
[2018-06-15 11:14] LABS: BASO # 0.1 10^3/uL (0.0-0.2); BASO % 0.3 % (0.0-1.0); EOS % 0.2 % (0.0-3.0); HEMATOCRIT 45.2 % (42.0-52.0); HEMOGLOBIN 16.2 g/dl (13.5-17.5); LYMPH # 1.4 10^3/uL (1.5-6.5); LYMPH % 8.9 % (24.0-44.0); MEAN CORPUSCULAR HEMOGLOBIN 27.5 pg (27.0-33.0); MEAN CORPUSCULAR HGB CONC 35.8 g/dl (32.0-36.5); MEAN CORPUSCULAR VOLUME 76.7 fl (80.0-96.0); MONO # 0.4 10^3/uL (0.0-0.8); MONO % 2.6 % (0.0-5.0); NEUTROPHILS # 13.6 10^3/uL (1.8-7.7); NEUTROPHILS % 87.4 % (36.0-66.0); PLATELET COUNT, AUTOMATED 126 10^3/uL (150-450); RED BLOOD COUNT 5.89 10^6/uL (4.30-6.10); WHITE BLOOD COUNT 15.6 10^3/uL (4.0-10.0)
[2018-06-15 11:48] LABS: ALBUMIN 5.3 GM/DL (3.2-5.2); ALT/SGPT 16 U/L (12-78); BILIRUBIN,DIRECT 0.3 MG/DL (0.0-0.2); BILIRUBIN,TOTAL 1.5 MG/DL (0.2-1.0); BLOOD UREA NITROGEN 20 MG/DL (7-18); CALCIUM LEVEL 9.9 MG/DL (8.5-10.1); CARBON DIOXIDE LEVEL 22 MEQ/L (21-32); CHLORIDE LEVEL 105 MEQ/L (98-107); CREATININE FOR GFR 0.93 MG/DL (0.70-1.30); GLUCOSE, FASTING 87 MG/DL (70-100); POTASSIUM SERUM 4.3 MEQ/L (3.5-5.1); SODIUM LEVEL 140 MEQ/L (136-145); TOTAL PROTEIN 8.1 GM/DL (6.4-8.2)
[2018-06-15] MEDS: GASTROGRAFIN SOLUTION 30ML PO SCH ×2 (12:09→12:46)
[2018-06-15] MEDS ORDERED: ISOVUE-370 76% 100ML VIAL (Q9967) As Ordered ONE (12:25)
--- NOTE | 2018-06-15 14:28 | REP ---
CT ABDOMEN AND PELVIS WITH IV AND ORAL CONTRAST: HISTORY: Abdomen pain. Rule out intussusception. Comparison CT study is from June 08, 2018. Orally administered contrast is seen opacifying the colon on brick paver and CT images. There is some distal small bowel opacification as well. Bowel gas pattern is normal. The lung bases are clear. There is no CT evidence to suggest intussusception or other obstructive lesion. Urinary bladder, seminal vesicles and prostate are unremarkable. A normal contrast opacified appendix is seen in the right lower quadrant. A ptotic and malrotated left kidney is again noted unchanged. Right kidney is unremarkable. No hepatic or splenic abnormality is seen. Gallbladder and pancreas remain unremarkable. There are chronic changes in the left hip suggesting old trauma or conceivably a congenital hip dysplasia. There is considerable bony hypertrophy of the acetabulum and there is broadening and flattening of the femoral head on the left. These findings are unchanged and not acute. IMPRESSION: No evidence of bowel obstruction or intussusception. Orally administered contrast opacifies distal small bowel and the entire colon through to the rectum. Old post-traumatic changes versus congenital hip dysplasia changes in the left hip and pelvis. Malrotated left kidney again seen. Normal appendix. No acute abnormality. Electronically Signed by Rob Trevino MD 06/15/2018 02:40 P
[2018-06-15 14:48] VITALS: BP 117/75
--- NOTE | 2018-06-22 15:46 | REP ---
Scrotal sonography: History: Right 10 . Comparison scrotal sonography June 09, 2018 showed no abnormality. Recent CT study showed malrotation of the left kidney. Sonographic findings: High-resolution bilateral scrotal sonography shows homogeneous testes bilaterally. No intratesticular mass lesion is seen on either side. Right testis measures 4.4 x 2.4 x 3.0 cm. Left testicular dimensions are 4.2 x 2.2 x 2.7 cm. There is a 0.2 cm cyst in the head of the epididymis on the left. Epididymi are otherwise unremarkable. Normal Doppler flow is seen to both testes. Right testicular Doppler resistive index is 0.43 and that on the left is 0.45. Impression: Normal bilateral testicular ultrasound. Electronically Signed by Rob Trevino MD 06/15/2018 11:24 A
[2018-06-27] MEDS ORDERED: SUCR1SUS PO (15:09)
[2018-06-27] MEDS ORDERED: ALBU83IN INH (15:16)
[2018-06-27] MEDS ORDERED: GNP1CRE5 EX (15:26)
== END 2018-06-15 14:59 | disposition home or self-care (01) ==
LOC: M ED 09:48
DX: N50.811 Right testicular pain (principal); R10.2 Pelvic and perineal pain; F90.9 Attention-deficit hyperactivity disorder, unspecified type; Q63.8 Other specified congenital malformations of kidney; Z87.820 Personal history of traumatic brain injury; Z79.899 Other long term (current) drug therapy; Z88.0 Allergy status to penicillin; Z88.1 Allergy status to other antibiotic agents
CPT/HCPCS: 74176; 76870; 80048; 80076; 83605; 85025; 93976; 99284; Q9963

== ENCOUNTER → 2018-07-06 | Outpatient (REF) | payer OTHER ==
[~2018-07-06] MED LIST changes: +GNP1CRE5 EX; +SUCR1SUS PO
[2018-07-09 14:17] LABS: H PYLORI SERUM QUANT IGM 9.5 units (0.0-8.9); H PYLORI SERUM QUANT IgG ABY 0.13 (0.00-0.79)
== END ==
LOC: M SFHCPLAZ 09:26
PROVIDERS: ATTEND Family Medicine
DX: R10.84 Generalized abdominal pain (principal)

== ENCOUNTER 2018-07-18 06:41 | Day surgery (SDC) | payer OTHER ==
[~2018-07-18] VITALS: Ht 157.5 cm; Wt 46.3 kg
[~2018-07-18 06:41] MED LIST changes: +LIDOCAINE 2% INJ 100 MG/5 ML SDV (FOR ANES.) As Ordered ONE; +NS 1,000 ML IV ONE; +PROPOFOL 200 MG/20 ML VIAL As Ordered ONE
[2018-07-18] MEDS ORDERED: PROPOFOL 500 MG/50 ML VIAL As Ordered ONE (07:10)
[2018-07-18] MEDS ORDERED: LIDOCAINE 2% INJ 100 MG/5 ML SDV (FOR ANES.) As Ordered ONE (07:57)
--- NOTE | 2018-07-18 08:17 | ROOR ---
Patient Name: Tylor Galindo Procedure Date: 07/18/2018 7:35 AM Date of : 2000 Age: 17 [facility] Note Status: Finalized Procedure: Upper GI endoscopy Indications: Generalized abdominal pain Providers: Alton Ruiz MD Referring MD: Peter DODSON MD Requesting Provider: Medicines: Monitored Anesthesia Care Complications: No immediate complications. Procedure: Pre-Anesthesia Assessment: - Prior to the procedure, a History and Physical was performed, and patient medications and allergies were reviewed. The patient is competent. The risks and benefits of the procedure and the sedation options and risks were discussed with the patient. All questions were answered and informed consent was obtained. Patient identification and proposed procedure were verified by the physician, the nurse and the anesthesiologist in the endoscopy suite. Mental Status Examination: alert and oriented. Airway Examination: normal oropharyngeal airway and neck mobility. Respiratory Examination: clear to auscultation. CV Examination: normal. Prophylactic Antibiotics: The patient does not require prophylactic antibiotics. Prior Anticoagulants: The patient has taken no previous anticoagulant or antiplatelet agents. ASA Grade Assessment: II - A patient with mild systemic disease. After reviewing the risks and benefits, the patient was deemed in satisfactory condition to undergo the procedure. The anesthesia plan was to use monitored anesthesia care (MAC). Immediately prior to administration of medications, the patient was re-assessed for adequacy to receive sedatives. The heart rate, respiratory rate, oxygen saturations, blood pressure, adequacy of pulmonary ventilation, and response to care were monitored throughout the procedure. The physical status of the patient was re-assessed after the procedure. The Endoscope was introduced through the mouth, and advanced to the third part of duodenum. The upper GI endoscopy was accomplished without difficulty. The patient tolerated the procedure fairly well. Findings: The examined esophagus was normal. The Z-line was regular and was found 35 cm from the incisors. The entire examined stomach was normal. Biopsies were taken with a cold forceps for Helicobacter pylori testing. Estimated blood loss: Minimal. The examined duodenum was normal. Impression: - Normal esophagus. - Z-line regular, 35 cm from the incisors. - Normal stomach. Biopsied. - Normal examined duodenum. Recommendation: - Discharge patient to home (ambulatory). - Telephone GI clinic for pathology results in 1 week. Alton Ruiz MD Alton Ruiz MD 07/18/2018 8:17:06 AM Electronically signed by Alton Ruiz MD Number of Addenda: 0 Note Initiated On: 07/18/2018 7:35 AM Estimated Blood Loss: Estimated blood loss was minimal.
--- NOTE | 2018-07-18 08:21 | ROOR ---
Patient Name: Tylor Galindo Procedure Date: 07/18/2018 7:38 AM Date of : 2000 Age: 17 [facility] Note Status: Finalized Procedure: Colonoscopy Indications: Abdominal pain in the left lower quadrant, Abdominal pain in the right lower quadrant Providers: Alton Ruiz MD Referring MD: JAMES DODSON DO Requesting Provider: Medicines: Monitored Anesthesia Care Complications: No immediate complications. Procedure: Pre-Anesthesia Assessment: - Prior to the procedure, a History and Physical was performed, and patient medications and allergies were reviewed. The patient is competent. The risks and benefits of the procedure and the sedation options and risks were discussed with the patient. All questions were answered and informed consent was obtained. Patient identification and proposed procedure were verified by the physician, the nurse and the anesthesiologist in the endoscopy suite. Mental Status Examination: alert and oriented. Airway Examination: normal oropharyngeal airway and neck mobility. Respiratory Examination: clear to auscultation. CV Examination: normal. Prophylactic Antibiotics: The patient does not require prophylactic antibiotics. Prior Anticoagulants: The patient has taken no previous anticoagulant or antiplatelet agents. ASA Grade Assessment: II - A patient with mild systemic disease. After reviewing the risks and benefits, the patient was deemed in satisfactory condition to undergo the procedure. The anesthesia plan was to use monitored anesthesia care (MAC). Immediately prior to administration of medications, the patient was re-assessed for adequacy to receive sedatives. The heart rate, respiratory rate, oxygen saturations, blood pressure, adequacy of pulmonary ventilation, and response to care were monitored throughout the procedure. The physical status of the patient was re-assessed after the procedure. The Colonoscope was introduced through the anus and advanced to the cecum, identified by appendiceal orifice and ileocecal valve. The colonoscopy was performed without difficulty. The patient tolerated the procedure well. The quality of the bowel preparation was good. Findings: The perianal and digital rectal examinations were normal. The colon (entire examined portion) appeared normal. There is no endoscopic evidence of bleeding, erythema, inflammation, colitis or congestion in the entire colon. The retroflexed view of the distal rectum and anal verge was normal and showed no anal or rectal abnormalities. I attempted to get through the ileocecal valve but not able to so terminal ileum not visualized for pathology Impression: - The entire examined colon is normal. - The distal rectum and anal verge are normal on retroflexion view. - No specimens collected. Recommendation: - Discharge patient to home. - High fiber diet indefinitely. - Colace capsule(s) orally 100 mg daily indefinitely. Alton Ruiz MD Alton Ruiz MD 07/18/2018 8:21:00 AM Electronically signed by Alton Ruiz MD Number of Addenda: 0 Note Initiated On: 07/18/2018 7:38 AM Estimated Blood Loss: Estimated blood loss: none.
[2018-07-18 08:35] VITALS: BP 121/74
== END 2018-07-18 08:44 | disposition home or self-care (01) ==
LOC: M OPP 06:41
PROVIDERS: ATTEND Surgery
DX: R10.32 Left lower quadrant pain (principal); R10.31 Right lower quadrant pain; R10.84 Generalized abdominal pain

== ENCOUNTER 2018-07-30 00:25 | Emergency (ER) | payer OTHER ==
[~2018-07-30] VITALS: Ht 157.5 cm; Wt 45.5 kg
[~2018-07-30 00:25] MED LIST changes: -LIDOCAINE 2% INJ 100 MG/5 ML SDV (FOR ANES.) As Ordered ONE; -NS 1,000 ML IV ONE; -PROPOFOL 200 MG/20 ML VIAL As Ordered ONE
[2018-07-30] MEDS ORDERED: ONDANSETRON 4MG/2ML VIAL (J2405) IV ONE (01:00)
[2018-07-30] MEDS ORDERED: IBUPROFEN 600 MG TAB PO ONE (01:00)
[2018-07-30] MEDS ORDERED: methylPREDNISolone INJ 125 MG/2 ML VIAL (J2930) IV ONE (01:00)
[2018-07-30] MEDS ORDERED: NS 1,000 ML IV ONE (01:00)
[2018-07-30] MEDS ORDERED: IPRATROPIUM 0.5MG/ALBUTEROL 2.5MG INH SOL UD 3ML (DUONEB)(J7620) NEB PRN (01:00)
[2018-07-30] MEDS ORDERED: KETOROLAC 30 MG/ML VIAL (J1885) IV ONE (01:15)
[2018-07-30 01:35] LABS: BASO % 0.3 % (0.0-1.0); EOS # 0.1 10^3/uL (0.0-0.50); EOS % 0.6 % (0.0-3.0); HEMATOCRIT 44.7 % (42.0-52.0); HEMOGLOBIN 15.9 g/dl (13.5-17.5); LYMPH # 0.7 10^3/uL (1.5-6.5); LYMPH % 5.4 % (24.0-44.0); MEAN CORPUSCULAR HGB CONC 35.6 g/dl (32.0-36.5); MEAN CORPUSCULAR VOLUME 78.8 fl (80.0-96.0); MONO # 0.5 10^3/uL (0.0-0.8); MONO % 4.2 % (0.0-5.0); NEUTROPHILS % 89.1 % (36.0-66.0); RED BLOOD COUNT 5.67 10^6/uL (4.30-6.10); WHITE BLOOD COUNT 12.4 10^3/uL (4.0-10.0)
[2018-07-30 01:59] LABS: PLATELET COUNT, AUTOMATED 96 10^3/uL (150-450)
[2018-07-30 02:00] LABS: ALBUMIN 4.7 GM/DL (3.2-5.2); BILIRUBIN,DIRECT 0.3 MG/DL (0.0-0.2); BILIRUBIN,TOTAL 1.5 MG/DL (0.2-1.0); TOTAL PROTEIN 8.1 GM/DL (6.4-8.2)
[2018-07-30 02:01] LABS: INFLUENZA A AMPLIFICATION NEGATIVE (NEGATIVE); INFLUENZA B AMPLIFICATION NEGATIVE (NEGATIVE)
[2018-07-30] MEDS ORDERED: PRED20TA PO (02:44)
[2018-07-30] MEDS ORDERED: ZOFR8TAB24 PO (02:44)
[2018-07-30 04:45] VITALS: BP 118/78
--- NOTE | 2018-07-30 05:00 | REP ---
Clinical: Cough and dyspnea . Comparison: 03/05/2018 . Technique: PA and lateral. Findings: The mediastinum and cardiac silhouette are normal. The lung leiva are clear and without acute consolidation, effusion, or pneumothorax. The skeletal structures are intact and normal. Impression: 1. No acute cardiopulmonary process. Electronically Signed by Jovanni Alas MD 07/30/2018 04:51 A
== END 2018-07-30 04:46 | disposition home or self-care (01) ==
LOC: M ED 00:25
DX: J06.9 Acute upper respiratory infection, unspecified (principal); R06.02 Shortness of breath; J45.909 Unspecified asthma, uncomplicated; K21.9 Gastro-esophageal reflux disease without esophagitis; K58.9 Irritable bowel syndrome, unspecified; Z79.899 Other long term (current) drug therapy; Z88.0 Allergy status to penicillin; Z88.1 Allergy status to other antibiotic agents
CPT/HCPCS: 71046; 80047; 80076; 81001; 83605; 83690; 85025; 85049; 85055; 87502; 94640; 96361; 96374; 96375; 99284; J1885; J2405; J2930

== ENCOUNTER → 2018-09-17 | Outpatient (CLI) | payer OTHER ==
[~2018-09-17] MED LIST changes: +CEPH500C; +ZOFR8TAB24 PO
[2018-09-17 17:48] LABS: BASO % 0.2 % (0.0-1.0); EOS # 0.1 10^3/uL (0.0-0.50); EOS % 0.5 % (0.0-3.0); HEMOGLOBIN 14.6 g/dl (13.5-17.5); LYMPH # 1.4 10^3/uL (1.5-6.5); LYMPH % 11.5 % (24.0-44.0); MEAN CORPUSCULAR HEMOGLOBIN 27.5 pg (27.0-33.0); MEAN CORPUSCULAR HGB CONC 35.6 g/dl (32.0-36.5); MEAN CORPUSCULAR VOLUME 77.4 fl (80.0-96.0); MONO # 0.4 10^3/uL (0.0-0.8); MONO % 3.3 % (0.0-5.0); NEUTROPHILS # 10.1 10^3/uL (1.8-7.7); NEUTROPHILS % 83.8 % (36.0-66.0); PLATELET COUNT, AUTOMATED 138 10^3/uL (150-450); WHITE BLOOD COUNT 12.1 10^3/uL (4.0-10.0)
[2018-09-17 18:20] LABS: FREE T4 1.05 NG/DL (0.78-1.33); THYROID STIMULATING HORMONE 1.79 uIU/ML (0.463-3.98)
== END ==
LOC: M LAB 17:22
PROVIDERS: ATTEND Family Medicine
DX: K58.9 Irritable bowel syndrome, unspecified (principal); E04.9 Nontoxic goiter, unspecified; D69.2 Other nonthrombocytopenic purpura

== ENCOUNTER 2018-09-20 15:22 | Emergency (ER) | payer OTHER ==
[~2018-09-20] VITALS: Ht 157.5 cm; Wt 47.0 kg
[~2018-09-20 15:22] MED LIST changes: -CEPH500C
[2018-09-20] MEDS ORDERED: CEPH500C (15:27)
[2018-09-20 16:51] VITALS: BP 107/56
--- NOTE | 2018-09-20 17:06 | REP ---
LEFT KNEE: There is no evidence of an acute fracture, dislocation or intrinsic bone disease. IMPRESSION: No fracture or dislocation. Electronically Signed by Roosevelt Briggs MD 09/22/2018 10:29 A
--- NOTE | 2018-09-20 17:07 | REP ---
LEFT LOWER LEG, AP AND LATERAL: There is no evidence of an acute fracture, dislocation or intrinsic bone disease. IMPRESSION: No fracture or dislocation. Electronically Signed by Roosevelt Brgigs MD 09/22/2018 10:29 A
== END 2018-09-20 17:01 | disposition home or self-care (01) ==
LOC: M ED 15:22
DX: S80.02XA Contusion of left knee, initial encounter (principal); W19.XXXA Unspecified fall, initial encounter; Y92.099 Unspecified place in other non-institutional residence as the place of occurrence of the external cause; Y93.9 Activity, unspecified; Y99.9 Unspecified external cause status; Z79.899 Other long term (current) drug therapy; Z88.0 Allergy status to penicillin; Z88.1 Allergy status to other antibiotic agents

== ENCOUNTER → 2018-09-26 | Outpatient (CLI) | payer OTHER ==
[~2018-09-26] MED LIST changes: +AZIT-12 PO; +CEPH500C; +TESS100C PO
--- NOTE | 2018-09-26 19:29 | REP ---
THYROID ULTRASOUND: Real-time sonographic evaluation of the thyroid was performed. Both lobes of the thyroid are relatively normal in size, right lobe measuring 4.2 x 1.4 x 0.9 cm and left lobe 3.8 x 1.0 x 1.2 cm. There are three tiny cysts in the right lobe with a maximum diameter of 2 mm, insignificant. No solid nodule is seen. IMPRESSION: Essentially unremarkable thyroid ultrasound. No thyromegaly. A few tiny cysts in the right lobe with a maximum diameter of 2 mm. Electronically Signed by Roosevelt Briggs MD 09/30/2018 07:01 P
== END ==
LOC: M RAD 16:08
PROVIDERS: ATTEND Family Medicine
DX: E07.9 Disorder of thyroid, unspecified (principal)

== ENCOUNTER 2018-10-04 15:09 | Emergency (ER) | payer OTHER ==
[~2018-10-04 15:09] MED LIST changes: -AZIT-12 PO; -TESS100C PO
[2018-10-04 17:34] LABS: BLOOD UREA NITROGEN 18 MG/DL (7-18); CALCIUM LEVEL 9.5 MG/DL (8.5-10.1); CARBON DIOXIDE LEVEL 18 MEQ/L (21-32); CHLORIDE LEVEL 109 MEQ/L (98-107); CREATININE FOR GFR 1.17 MG/DL (0.70-1.30); GLUCOSE, FASTING 92 MG/DL (70-100); POTASSIUM SERUM 3.1 MEQ/L (3.5-5.1); SODIUM LEVEL 141 MEQ/L (136-145)
[2018-10-04 17:36] LABS: BASO % 0.2 % (0.0-1.0); EOS # 0.1 10^3/uL (0.0-0.50); HEMATOCRIT 40.6 % (42.0-52.0); HEMOGLOBIN 14.6 g/dl (13.5-17.5); LYMPH # 0.7 10^3/uL (1.5-6.5); MEAN CORPUSCULAR HEMOGLOBIN 28.2 pg (27.0-33.0); MEAN CORPUSCULAR VOLUME 78.5 fl (80.0-96.0); MONO # 0.4 10^3/uL (0.0-0.8); NEUTROPHILS # 6.9 10^3/uL (1.8-7.7); NEUTROPHILS % 84.3 % (36.0-66.0); RED BLOOD COUNT 5.17 10^6/uL (4.30-6.10); WHITE BLOOD COUNT 8.2 10^3/uL (4.0-10.0)
[2018-10-04 18:18] LABS: PLATELET COUNT, AUTOMATED 92 10^3/uL (150-450)
[2018-10-04] MEDS ORDERED: IPRATROPIUM 0.5MG/ALBUTEROL 2.5MG INH SOL UD 3ML (DUONEB)(J7620) NEB ONE (20:00)
[2018-10-04] MEDS: KETOROLAC 30 MG/ML VIAL (J1885) IV ONE (20:11)
[2018-10-04 20:14] LABS: CK-MB VALUE MASS < 1.0 NG/ML (<3.6); CPK CREATINE PHOSPHOKINASE 158 U/L (39-308); MAGNESIUM LEVEL 2.2 MG/DL (1.4-2.0); MB/CK RELATIVE INDEX 0.63 (< OR =4); NT-PRO BNP 41 PG/ML (<125); TROPONIN I < 0.02 NG/ML (< 0.10)
--- NOTE | 2018-10-04 20:57 | ECGEPIP ---
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
[2018-10-04] MEDS ORDERED: LORazepam 2 MG/ML VIAL (J2060) IV STA (21:04)
[2018-10-04] MEDS ORDERED: ONDANSETRON 4MG/2ML VIAL (J2405) IV ONE (21:15)
[2018-10-04] MEDS ORDERED: MORPHINE 2 MG/ML 1ML SYRINGE (J2270) IV PRN (21:15)
[2018-10-04 21:45] LABS: ALBUMIN 5.1 GM/DL (3.2-5.2); ALT/SGPT 16 U/L (12-78); BILIRUBIN,DIRECT 0.5 MG/DL (0.0-0.2); BILIRUBIN,TOTAL 1.8 MG/DL (0.2-1.0); TOTAL PROTEIN 7.6 GM/DL (6.4-8.2)
[2018-10-04] MEDS ORDERED: NS 1,000 ML IV ONE (21:45)
[2018-10-04] MEDS ORDERED: ISOVUE-370 76% 100ML VIAL (Q9967) As Ordered ONE (22:57)
--- NOTE | 2018-10-05 00:19 | REPVR ---
EXAM: CT Abdomen and Pelvis With Contrast EXAM DATE/TIME: 10/04/2018 10:48 PM CLINICAL HISTORY: 17 years old, male; Abdominal pain; Generalized; Additional info: Cough, chest pain, abd pain TECHNIQUE: Imaging protocol: Axial computed tomography images of the abdomen and pelvis with intravenous contrast. Coronal and sagittal reformatted images were created and reviewed. Radiation optimization: All CT scans at this facility use at least one of these dose optimization techniques: automated exposure control; mA and/or kV adjustment per patient size (includes targeted exams where dose is matched to clinical indication); or iterative reconstruction. Contrast material: ISO;Contrast volume: 100 ml;Contrast route: AC; COMPARISON: CT ABD/PEL W/IV ORAL CONTRAS 06/08/2018 4:23 PM FINDINGS: Liver: There is fatty infiltration of the liver. Gallbladder and bile ducts: Normal. No calcified stones. No ductal dilation. Pancreas: Normal. No ductal dilation. Spleen: The spleen measures 11.2 cm. Adrenals: Normal. No mass. Kidneys and ureters: Malrotated left kidney which is ptotic and extends across midline toward the right. Stomach and bowel: Normal. No obstruction. No mucosal thickening. Appendix: A normal appendix is seen. Intraperitoneal space: Normal. No free air. No significant fluid collection. Vasculature: Normal. No abdominal aortic aneurysm. Lymph nodes: Normal. No enlarged lymph nodes. Bladder: Unremarkable as visualized. Reproductive: Unremarkable as visualized. 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 Soft tissues: Unremarkable. IMPRESSION: 1. There has been little change from 06/08/2018. No acute interval process is identified. 2. Fatty infiltration of the liver. 3. Borderline splenomegaly. 4. 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 5. Malrotated ptotic left kidney which extends across midline toward the right. Electronically signed by: Yoan Card On 10/05/2018 00:19:24 AM
--- NOTE | 2018-10-05 00:23 | REPVR ---
EXAM: CT Angiography Chest With Contrast EXAM DATE/TIME: 10/04/2018 10:48 PM CLINICAL HISTORY: 17 years old, male; Chest pain; Type not specified; Additional info: Cough, chest pain, abd pain TECHNIQUE: Imaging protocol: Axial computed tomographic angiography images of the chest with intravenous contrast using CT angiography protocol. Coronal and sagittal reformatted images were created and reviewed. 3D rendering: MIP reconstructed images were created and reviewed. Radiation optimization: All CT scans at this facility use at least one of these dose optimization techniques: automated exposure control; mA and/or kV adjustment per patient size (includes targeted exams where dose is matched to clinical indication); or iterative reconstruction. Contrast material: ISO;Contrast volume: 100 ml;Contrast route: AC; COMPARISON: CT ANGIO CHEST 01/31/2016 1:45 AM FINDINGS: Pulmonary arteries: The main pulmonary artery measures 16 mm. No pulmonary embolism is identified. Aorta: The ascending thoracic aorta measures 20 mm. Lungs: Unremarkable. No consolidation. No masses. Pleural space: Unremarkable. No pneumothorax. No pleural effusion. Heart: Unremarkable. No cardiomegaly. No pericardial effusion. Lymph nodes: Unremarkable. No enlarged lymph nodes. Bones/joints: Unremarkable. No acute fracture. Soft tissues: Unremarkable. IMPRESSION: Negative CTA chest without change from 01/31/2016. No interval pulmonary embolism is identified. Electronically signed by: Yoan Card On 10/05/2018 00:23:11 AM
[2018-10-05] MEDS ORDERED: TESS100C PO (01:07)
[2018-10-05] MEDS ORDERED: PRED20TA PO (01:07)
[2018-10-05] MEDS ORDERED: AZIT-12 PO (01:07)
[2018-10-05] MEDS ORDERED: predniSONE 20 MG TAB PO ONE (01:15)
[2018-10-05] MEDS ORDERED: AZITHROMYCIN 250 MG TAB PO ONE (01:15)
[2018-10-05 01:30] VITALS: BP 121/62
== END 2018-10-05 01:55 | disposition home or self-care (01) ==
LOC: EDBD 15:09 → M ED 15:09
DX: J40 Bronchitis, not specified as acute or chronic (principal); R00.0 Tachycardia, unspecified; F41.1 Generalized anxiety disorder; Z88.0 Allergy status to penicillin; Z88.1 Allergy status to other antibiotic agents; Z79.899 Other long term (current) drug therapy
CPT/HCPCS: 36415; 71275; 74177; 80048; 80076; 81001; 82550; 82553; 83605; 83735; 83880; 85025; 85049; 85055; 87040; 93005; 93041; 94640; 94760; 96361; 96374; 96375; 99285; J1885; J2060; J2270; J2405; Q9967

== ENCOUNTER 2018-10-06 03:37 | Emergency (ER) | payer OTHER ==
[~2018-10-06] VITALS: Ht 157.5 cm; Wt 46.8 kg
[~2018-10-06 03:37] MED LIST changes: +AZIT-12 PO; +TESS100C PO
[2018-10-06] MEDS ORDERED: IPRATROPIUM 0.5MG/ALBUTEROL 2.5MG INH SOL UD 3ML (DUONEB)(J7620) NEB ONE (04:30)
[2018-10-06] MEDS ORDERED: BENZONATATE 100 MG CAP PO ONE (04:30)
[2018-10-06] MEDS ORDERED: METAL LOCK LOOP XX ONE (05:46)
[2018-10-06 06:00] VITALS: BP 117/60
== END 2018-10-06 06:07 | disposition home or self-care (01) ==
LOC: M ED 03:37 → EDBD 03:37 → M ED 06:07
DX: J21.9 Acute bronchiolitis, unspecified (principal); S29.011A Strain of muscle and tendon of front wall of thorax, initial encounter; X58.XXXA Exposure to other specified factors, initial encounter; Y92.89 Other specified places as the place of occurrence of the external cause; J45.909 Unspecified asthma, uncomplicated; Z79.899 Other long term (current) drug therapy; Z88.0 Allergy status to penicillin; Z88.1 Allergy status to other antibiotic agents

== ENCOUNTER 2018-11-08 00:48 | Emergency (ER) | payer OTHER ==
[~2018-11-08] VITALS: Ht 157.5 cm; Wt 45.6 kg
[2018-11-08] MEDS ORDERED: ACETAMINOPHEN TAB 650MG DOSE (2X325MG) PO ONE (02:15)
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
[2018-11-08 03:49] VITALS: BP 118/64
== END 2018-11-08 03:50 | disposition home or self-care (01) ==
LOC: M ED 00:48
DX: S09.90XA Unspecified injury of head, initial encounter (principal); Y04.8XXA Assault by other bodily force, initial encounter; Y07.411 Sister, perpetrator of maltreatment and neglect; Y92.009 Unspecified place in unspecified non-institutional (private) residence as the place of occurrence of the external cause; Y93.89 Activity, other specified; T76.11XA Adult physical abuse, suspected, initial encounter; Z79.899 Other long term (current) drug therapy; Z88.0 Allergy status to penicillin; Z88.1 Allergy status to other antibiotic agents

== ENCOUNTER 2018-11-08 23:08 | Emergency (ER) | payer OTHER ==
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
[2018-11-09 00:51] VITALS: BP 116/79
== END 2018-11-09 00:53 | disposition home or self-care (01) ==
LOC: M ED 23:08
DX: T76.11XA Adult physical abuse, suspected, initial encounter (principal); Y04.8XXA Assault by other bodily force, initial encounter; Y07.411 Sister, perpetrator of maltreatment and neglect; Q87.2 Congenital malformation syndromes predominantly involving limbs; Z79.899 Other long term (current) drug therapy; Z88.0 Allergy status to penicillin; Z88.1 Allergy status to other antibiotic agents

== ENCOUNTER 2018-12-24 21:53 | Emergency (ER) | payer OTHER ==
[~2018-12-24] VITALS: Ht 157.5 cm; Wt 44.4 kg
[~2018-12-24 21:53] MED LIST changes: -OMEP40CA2 PO; +OMEP40CA97 PO
[2018-12-24 23:32] VITALS: BP 114/71
== END 2018-12-24 23:33 | disposition home or self-care (01) ==
LOC: M ED 21:53
DX: F41.9 Anxiety disorder, unspecified (principal); Q87.2 Congenital malformation syndromes predominantly involving limbs; M16.30 Unilateral osteoarthritis resulting from hip dysplasia, unspecified hip; G47.00 Insomnia, unspecified; Z88.0 Allergy status to penicillin; Z88.1 Allergy status to other antibiotic agents

== ENCOUNTER → 2018-12-28 | Outpatient (REF) | payer OTHER ==
[2018-12-28 18:42] LABS: ALBUMIN 4.6 GM/DL (3.2-5.2); ALT/SGPT 19 U/L (12-78); BILIRUBIN,TOTAL 0.8 MG/DL (0.2-1.0); BLOOD UREA NITROGEN 14 MG/DL (7-18); CARBON DIOXIDE LEVEL 27 MEQ/L (21-32); CHLORIDE LEVEL 110 MEQ/L (98-107); CHOLESTEROL LEVEL 158 MG/DL (<200); CHOLESTEROL RISK RATIO 2.724 (<5); CREATININE FOR GFR 0.97 MG/DL (0.70-1.30); FREE T4 1.04 NG/DL (0.78-1.33); GLUCOSE, FASTING 103 MG/DL (70-100); HDL CHOLESTEROL 58 MG/DL (>40); LDL CHOLESTEROL 67 MG/DL (<100); NON-HDL-C 100 MG/DL; POTASSIUM SERUM 3.7 MEQ/L (3.5-5.1); SODIUM LEVEL 142 MEQ/L (136-145); TOTAL PROTEIN 7.5 GM/DL (6.4-8.2); TRIGLYCERIDES LEVEL 165 MG/DL (<150)
[2018-12-28 18:45] LABS: TOTAL 25(OH) VITAMIN D 24.3 NG/ML (30.0-100.0)
[2018-12-28 18:49] LABS: BASO % 0.5 % (0.0-1.0); EOS # 0.3 10^3/uL (0.0-0.5); EOS % 4.6 % (0.0-3.0); HEMOGLOBIN 15.3 g/dl (13.5-17.5); LYMPH # 1.2 10^3/uL (1.5-5.0); LYMPH % 18.8 % (24.0-44.0); MEAN CORPUSCULAR HGB CONC 34.8 g/dl (32.0-36.5); MEAN CORPUSCULAR VOLUME 80.4 fl (80.0-96.0); MONO # 0.2 10^3/uL (0.0-0.8); MONO % 3.8 % (0.0-5.0); NEUTROPHILS # 4.5 10^3/uL (1.5-8.5); NEUTROPHILS % 71.8 % (36.0-66.0); PLATELET COUNT, AUTOMATED 143 10^3/uL (150-450); RED BLOOD COUNT 5.47 10^6/uL (4.30-6.10); WHITE BLOOD COUNT 6.3 10^3/uL (4.0-10.0)
[2018-12-28 19:40] LABS: HEMOGLOBIN A1c 4.8 %
== END ==
LOC: M LAB REF 16:24
PROVIDERS: ATTEND Family Medicine
DX: Z13.228 Encounter for screening for other metabolic disorders (principal)

== ENCOUNTER 2019-01-10 09:42 | Emergency (ER) | payer OTHER ==
[~2019-01-10] VITALS: Ht 157.5 cm; Wt 46.1 kg
[2019-01-10 10:40] LABS: BASO % 0.6 % (0.0-1.0); EOS # 0.4 10^3/uL (0.0-0.5); EOS % 5.6 % (0.0-3.0); HEMATOCRIT 43.3 % (42.0-52.0); HEMOGLOBIN 15.1 g/dl (13.5-17.5); LYMPH # 1.9 10^3/uL (1.5-5.0); LYMPH % 28.3 % (24.0-44.0); MEAN CORPUSCULAR HEMOGLOBIN 27.3 pg (27.0-33.0); MEAN CORPUSCULAR HGB CONC 34.9 g/dl (32.0-36.5); MEAN CORPUSCULAR VOLUME 78.2 fl (80.0-96.0); MONO # 0.4 10^3/uL (0.0-0.8); MONO % 5.3 % (0.0-5.0); NEUTROPHILS % 59.6 % (36.0-66.0); PLATELET COUNT, AUTOMATED 138 10^3/uL (150-450); RED BLOOD COUNT 5.54 10^6/uL (4.30-6.10); WHITE BLOOD COUNT 6.6 10^3/uL (4.0-10.0)
[2019-01-10] MEDS ORDERED: ONDANSETRON 4MG/2ML VIAL (J2405) IV ONE (10:45)
[2019-01-10] MEDS ORDERED: KETOROLAC 30 MG/ML VIAL (J1885) IV ONE (10:45)
[2019-01-10] MEDS ORDERED: NS 1,000 ML IV ONE (10:45)
[2019-01-10 11:02] LABS: ALBUMIN 4.4 GM/DL (3.2-5.2); ALT/SGPT 18 U/L (12-78); BILIRUBIN,TOTAL 0.9 MG/DL (0.2-1.0); BLOOD UREA NITROGEN 18 MG/DL (7-18); CALCIUM LEVEL 9.2 MG/DL (8.5-10.1); CARBON DIOXIDE LEVEL 27 MEQ/L (21-32); CHLORIDE LEVEL 108 MEQ/L (98-107); CREATININE FOR GFR 0.92 MG/DL (0.70-1.30); GLUCOSE, FASTING 89 MG/DL (70-100); LIPASE 88 U/L (73-393); POTASSIUM SERUM 4.1 MEQ/L (3.5-5.1); SODIUM LEVEL 140 MEQ/L (136-145); TOTAL PROTEIN 7.3 GM/DL (6.4-8.2)
--- NOTE | 2019-01-10 11:41 | REP ---
Clinical: Upper abdominal and bilateral flank pain. Technique: Real time cortez scale and color ultrasound examination using curved array transducer. Findings: The liver is increased echogenicity suggesting fatty infiltration. Spleen is upper limits of normal in size without focal splenic lesion identified and measures 11 cm in maximal length. The pancreas is incompletely evaluated due to interposed bowel gas. The gallbladder is normal and without gallstones, wall thickening, or pericholecystic fluid. No biliary ductal dilatation is appreciated and the common bile duct measures 3.8 mm diameter. The bilateral kidneys are normal in reniform shape without hydronephrosis. Right kidney measures 8.9 x 4.6 x 4.1 cm. Left kidney measures 8.9 x 3.1 x 2.7 cm and appears malrotated. Abdominal aorta measures 1.5 cm diameter. No ascites. Impression: 1. Hepatic steatosis. 2. 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 Electronically Signed by Jovanni Alas MD 01/10/2019 11:34 A
[2019-01-10] MEDS ORDERED: NAPR-837 PO (11:55)
[2019-01-10] MEDS ORDERED: DICY1CAP8 PO (11:55)
[2019-01-10] MEDS ORDERED: ZOFR4TAB16 PO (11:55)
[2019-01-10 11:59] VITALS: BP 107/52
[2019-01-10] MEDS ORDERED: METOCLOPRAMIDE 10 MG TAB PO ONE (12:00)
[2019-01-10] MEDS ORDERED: DICYCLOMINE 10 MG CAP PO ONE (12:00)
== END 2019-01-10 12:21 | disposition home or self-care (01) ==
LOC: M ED 09:42
DX: K76.0 Fatty (change of) liver, not elsewhere classified (principal); Q63.8 Other specified congenital malformations of kidney; Z88.0 Allergy status to penicillin; Z88.1 Allergy status to other antibiotic agents; Z79.899 Other long term (current) drug therapy
CPT/HCPCS: 76700; 80053; 81001; 83690; 85025; 96374; 96375; 99284; J1885; J2405

== ENCOUNTER → 2019-02-25 | Outpatient (CLI) | payer OTHER ==
[~2019-02-25] MED LIST changes: +DICY1CAP8 PO; +NAPR-837 PO
[2019-02-25 20:58] LABS: CHLAMYDIA DNA AMPLIFICATION NEGATIVE (NEGATIVE); GC DNA AMPLIFICATION NEGATIVE (NEGATIVE)
[2019-02-25 21:27] LABS: HIV 1&2 SCREEN CENTAUR NEGATIVE (NEGATIVE)
[2019-02-27 13:36] LABS: HEPATITIS A ANTIBODY IGM NEGATIVE (NEGATIVE); HEPATITIS B CORE ANTIBODY IGM NEGATIVE (NEGATIVE); HEPATITIS B SURFACE ANTIGEN NEGATIVE (NEGATIVE); HEPATITIS C VIRUS ABY INDEX 0.2 INDEX (<0.8)
== END ==
LOC: M LAB 17:48
PROVIDERS: ATTEND Family Medicine
DX: Z13.228 Encounter for screening for other metabolic disorders (principal)

== ENCOUNTER 2019-08-27 19:25 | Emergency (ER) | payer OTHER ==
[~2019-08-27] VITALS: Ht 157.5 cm; Wt 45.4 kg
[~2019-08-27 19:25] MED LIST changes: +QUET100T2 PO; -QUET1TAB8 PO; +SUCR1ORA PO; -SUCR1SUS PO
[2019-08-27] MEDS ORDERED: CIME300T91 (19:29)
[2019-08-27] MEDS ORDERED: LORazepam 2 MG/ML VIAL IV STA (20:39)
[2019-08-27] MEDS ORDERED: LORazepam 2 MG/ML VIAL IM STA (20:44)
[2019-08-27] MEDS ORDERED: NS 1,000 ML IV ONE (20:45)
--- NOTE | 2019-08-27 21:50 | ECGEPIP ---
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
[2019-08-27 21:54] LABS: BASO % 0.3 % (0.0-1.0); EOS % 0.2 % (0.0-3.0); HEMATOCRIT 45.1 % (42.0-52.0); HEMOGLOBIN 16.2 g/dl (13.5-17.5); LYMPH # 0.9 10^3/uL (1.5-5.0); LYMPH % 7.2 % (24.0-44.0); MEAN CORPUSCULAR HEMOGLOBIN 27.2 pg (27.0-33.0); MEAN CORPUSCULAR HGB CONC 35.9 g/dl (32.0-36.5); MEAN CORPUSCULAR VOLUME 75.8 fl (80.0-96.0); MONO # 0.3 10^3/uL (0.0-0.8); MONO % 2.5 % (0.0-5.0); NEUTROPHILS # 10.6 10^3/uL (1.5-8.5); NEUTROPHILS % 89.2 % (36.0-66.0); PLATELET COUNT, AUTOMATED 148 10^3/uL (150-450); RED BLOOD COUNT 5.95 10^6/uL (4.30-6.10); WHITE BLOOD COUNT 11.9 10^3/uL (4.0-10.0)
[2019-08-27 22:30] LABS: ALT/SGPT 14 U/L (12-78); BILIRUBIN,DIRECT 0.5 MG/DL (0.0-0.2); BILIRUBIN,TOTAL 1.7 MG/DL (0.2-1.0); BLOOD UREA NITROGEN 13 MG/DL (7-18); CALCIUM LEVEL 9.6 MG/DL (8.5-10.1); CARBON DIOXIDE LEVEL 22 MEQ/L (21-32); CHLORIDE LEVEL 106 MEQ/L (98-107); CK-MB VALUE MASS < 1.0 NG/ML (<3.6); CPK CREATINE PHOSPHOKINASE 152 U/L (39-308); GLUCOSE, FASTING 110 MG/DL (70-100); LIPASE 40 U/L (73-393); MB/CK RELATIVE INDEX 0.66 (< OR =4); POTASSIUM SERUM 3.6 MEQ/L (3.5-5.1); SODIUM LEVEL 137 MEQ/L (136-145); TOTAL PROTEIN 7.9 GM/DL (6.4-8.2); TROPONIN I < 0.02 NG/ML (< 0.10)
[2019-08-27 23:31] VITALS: BP 121/76
--- NOTE | 2019-08-28 08:14 | REP ---
Portable chest x-ray: Single view. History: Chest pain. Comparison chest x-ray: July 30, 2018. Findings: Monitoring electrodes overlie the chest. Heart is not enlarged. Lung leiva are clear. Pleural angles are sharp. Pulmonary vasculature is not increased. No acute bony abnormality. Impression: No active disease. Electronically Signed by Rob Trevino MD 08/28/2019 08:06 A
== END 2019-08-27 23:51 | disposition home or self-care (01) ==
LOC: M ED 19:25
DX: F41.9 Anxiety disorder, unspecified (principal); R07.89 Other chest pain; R09.82 Postnasal drip; R00.0 Tachycardia, unspecified; R05 Cough; R53.83 Other fatigue; J45.909 Unspecified asthma, uncomplicated; Z88.0 Allergy status to penicillin; Z88.1 Allergy status to other antibiotic agents; Z79.899 Other long term (current) drug therapy
CPT/HCPCS: 36415; 71045; 80048; 80076; 82550; 82553; 83690; 85025; 87486; 87581; 87633; 87798; 93005; 93041; 94760; 96372; 99285; J2060

== ENCOUNTER → 2019-09-09 | Outpatient (REF) | payer OTHER ==
[~2019-09-09] MED LIST changes: +CIME300T91
[2019-09-09 16:48] LABS: BASO % 0.6 % (0.0-1.0); EOS # 0.1 10^3/uL (0.0-0.5); EOS % 0.9 % (0.0-3.0); HEMATOCRIT 41.9 % (42.0-52.0); HEMOGLOBIN 14.6 g/dl (13.5-17.5); LYMPH # 0.9 10^3/uL (1.5-5.0); LYMPH % 16.8 % (24.0-44.0); MEAN CORPUSCULAR HEMOGLOBIN 27.3 pg (27.0-33.0); MEAN CORPUSCULAR HGB CONC 34.8 g/dl (32.0-36.5); MEAN CORPUSCULAR VOLUME 78.3 fl (80.0-96.0); MONO # 0.2 10^3/uL (0.0-0.8); MONO % 3.8 % (0.0-5.0); NEUTROPHILS # 4.1 10^3/uL (1.5-8.5); NEUTROPHILS % 77.1 % (36.0-66.0); PLATELET COUNT, AUTOMATED 133 10^3/uL (150-450); RED BLOOD COUNT 5.35 10^6/uL (4.30-6.10); WHITE BLOOD COUNT 5.3 10^3/uL (4.0-10.0)
[2019-09-09 16:50] LABS: ALT/SGPT 17 U/L (12-78); BLOOD UREA NITROGEN 12 MG/DL (7-18); CALCIUM LEVEL 9.4 MG/DL (8.5-10.1); CARBON DIOXIDE LEVEL 24 MEQ/L (21-32); CHLORIDE LEVEL 108 MEQ/L (98-107); CREATININE FOR GFR 0.97 MG/DL (0.70-1.30); GLUCOSE, FASTING 93 MG/DL (70-100); POTASSIUM SERUM 3.5 MEQ/L (3.5-5.1); SODIUM LEVEL 139 MEQ/L (136-145); TOTAL PROTEIN 8.1 GM/DL (6.4-8.2)
== END ==
LOC: M LAB REF 16:04
PROVIDERS: ATTEND Family Medicine Addiction Medicine
DX: Q87.2 Congenital malformation syndromes predominantly involving limbs (principal)

== ENCOUNTER 2019-12-27 16:52 | Inpatient (IN) | payer MEDICAID, OTHER ==
[~2019-12-27] VITALS: Ht 157.5 cm; Wt 43.2 kg
[2019-12-27 17:48] LABS: HEMATOCRIT 44.2 % (42.0-52.0); HEMOGLOBIN 15.3 g/dl (13.5-17.5); MEAN CORPUSCULAR HEMOGLOBIN 27.2 pg (27.0-33.0); MEAN CORPUSCULAR HGB CONC 34.6 g/dl (32.0-36.5); MEAN CORPUSCULAR VOLUME 78.6 fl (80.0-96.0); PLATELET COUNT, AUTOMATED 155 10^3/uL (150-450); RED BLOOD COUNT 5.62 10^6/uL (4.30-6.10); WHITE BLOOD COUNT 8.6 10^3/uL (4.0-10.0)
[2019-12-27 18:08] LABS: ACETAMINOPHEN LEVEL < 2.0 UG/ML (10.0-30.0); ALBUMIN 4.7 GM/DL (3.2-5.2); ALT/SGPT 122 U/L (12-78); BILIRUBIN,DIRECT 0.2 MG/DL (0.0-0.2); BILIRUBIN,TOTAL 0.8 MG/DL (0.2-1.0); BLOOD UREA NITROGEN 12 MG/DL (7-18); CALCIUM LEVEL 9.3 MG/DL (8.5-10.1); CARBON DIOXIDE LEVEL 26 MEQ/L (21-32); CHLORIDE LEVEL 109 MEQ/L (98-107); ETHYL ALCOHOL (ETHANOL) 0.006 % (0.000-0.010); GLOMERULAR FILTRATION RATE > 60.0 (>60); GLUCOSE, FASTING 102 MG/DL (70-100); POTASSIUM SERUM 3.7 MEQ/L (3.5-5.1); SALICYLATE LEVEL < 1.7 MG/DL (5.0-30.0); SODIUM LEVEL 141 MEQ/L (136-145); TOTAL PROTEIN 7.4 GM/DL (6.4-8.2)
[2019-12-27 18:46] LABS: AMPHETAMINES LEVEL URINE NEGATIVE (NEGATIVE); BARBITURATES URINE NEGATIVE (NEGATIVE); BENZODIAZEPINES URINE NEGATIVE (NEGATIVE); CANNABINOIDS URINE POSITIVE (NEGATIVE); COCAINE METABOLITE URINE NEGATIVE (NEGATIVE); METHADONE URINE NEGATIVE (NEGATIVE); OPIATES URINE NEGATIVE (NEGATIVE); PHENCYCLIDINE URINE NEGATIVE (NEGATIVE)
[2019-12-27] MEDS ORDERED: ACETAMINOPHEN TAB 650MG DOSE (2X325MG) PO ONE (19:30)
[2019-12-27] MEDS ORDERED: MAALOX 30 ML SUSP *UDC PO PRN (20:15)
[2019-12-27] MEDS ORDERED: MOM 30ML SUSPENSION UDC PO PRN (20:15)
[2019-12-27] MEDS ORDERED: ACETAMINOPHEN TAB 650MG DOSE (2X325MG) PO PRN (20:15)
[2019-12-27] MEDS: PALIPERIDONE 3 MG ER TAB (INVEGA) PO SCH (21:00)
[2019-12-27 21:57] VITALS: BP 139/80
[2019-12-27] MEDS: traZODone 50 MG TAB PO PRN (22:08)
[2019-12-28 06:31] VITALS: BP 98/72
[2019-12-28] MEDS: PALIPERIDONE 3 MG ER TAB (INVEGA) PO SCH ×3 (09:00→23:00)
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
[2019-12-28] MEDS ORDERED: CHLORASEPTIC SPRAY MT PRN (13:15)
[2019-12-28] MEDS ORDERED: CEPACOL LOZENGE PO PRN (13:15)
[2019-12-28 16:32] VITALS: BP 114/52
[2019-12-28] MEDS: traZODone 50 MG TAB PO PRN (21:34)
[2019-12-29 06:33] VITALS: BP 144/87
[2019-12-29] MEDS: PALIPERIDONE 3 MG ER TAB (INVEGA) PO SCH ×2 (09:55→20:55)
[2019-12-29] MEDS: OLANZapine ORAL DISINTEGRATING TAB 5MG PO PRN (09:55)
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
[2019-12-29 17:19] VITALS: BP 149/63
[2019-12-30 06:59] VITALS: BP 120/67
[2019-12-30] MEDS: PALIPERIDONE 3 MG ER TAB (INVEGA) PO SCH ×2 (09:23→20:20)
[2019-12-30] MEDS: hydrOXYzine 50 MG TAB PO SCH ×2 (12:00→17:57)
[2019-12-30] MEDS: OLANZapine ORAL DISINTEGRATING TAB 5MG PO PRN (14:01)
[2019-12-30] MEDS ORDERED: hydrOXYzine 50 MG TAB PO STA (14:24)
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
[2019-12-30 17:47] VITALS: BP 110/75
[2019-12-31] MEDS: hydrOXYzine 50 MG TAB PO SCH ×5 (06:24→23:05)
[2019-12-31 06:33] VITALS: BP 119/76
[2019-12-31] MEDS: PALIPERIDONE 3 MG ER TAB (INVEGA) PO SCH (09:45)
--- NOTE | 2019-12-31 17:30 | MHIPNPDOC ---
[facility] Progress Note Progress Note DATE OF SERVICE: 12/31/19 HISTORY: Patient is a 19 -year-old Single, Disabled, Domiciled , male who is a 9.41 to [employer] after making suicidal threats to his Grandmother and when she called 911 he then made and homicidal threats to stab the police if they came on-scene. VITAL SIGNS: See below. NEW TEST RESULTS: See below CURRENT MEDICATIONS: See below. MENTAL STATUS EXAMINATION: Speech: Is normal rate, tone and volume Language skills are intact Thought processes including: linear and goal oriented Thought content: reporting mild depression, suicidal/homicidal ideation, planning or intent. He is not anxious, denies abnormal psychotic symptoms Abstract reasoning, and computation: Fair Description of associations: mild ideas of reference, appears less paranoid, Description of abnormal or psychotic thoughts: psychotic perceptions Judgment: fair to poor at times Insight: fair to poor at times Orientation: alert and oriented to person, place, time and situation Recent and remote memory: intact Attention span and concentration: fair Language: expansive Fund of knowledge: good Mood: "I am good" Affect: flat Diagnoses 1. Unspecified psychotic disorder 2. Unspecified Trauma-Stressor disorder ASSESSMENT: Patient is reality based, linear thought process. States that he was many of this explosive is that his Grandmother "doesn't listen to him and is influenced by his sister" When she says something derogatory he becomes very enraged because his Grandmother seems to take her side and doesn't allow him to vent. He states that he is tired of his family treating him poorly. Patient complains of the Invega states that he had chest tightness and tachycardia. He is not observed with psychosis at this interview, I may have to revisit another antipsychotic if he has an increase in paranoia or ideas of reference. At this time, there doesn't seem to be a need to continued this. Patient admits that he has impulsivity and that when he is angry he says things that he does not necessarily mean. He reports no depression or suicidal or homicidal ideation at this time. MANAGEMENT PLAN: Will continue with the same treatment. Patient may be ready for discharge in 1-2 days. TIME SPENT ON COORDINATION OF THIS PATIENT: 20 minutes Vital Signs Vital Signs Date Time Temp Pulse Resp B/P (MAP) Pulse Ox O2 Delivery O2 Flow Rate FiO2 12/31/19 06:33 98.1 125 20 119/76 (90) 100 12/30/19 06:59 Room Air Current Medications Current Medications Medications (Trade) Dose Ordered Sig/Magaly Route PRN Reason Start Time Stop Time Status Last Admin Dose Admin Acetaminophen (Tylenol Tab) 650 mg Q6HP PRN PO HEADACHE or DISCOMFORT 12/27/19 20:15 Al Hydrox/Mg Hydrox/Simethicone (Mylanta) 30 ml Q4HP PRN PO HEARTBURN/INDIGESTION 12/27/19 20:15 Cetylpyridinium Chloride (Cepacol) 2 jacqueline Q2HP PRN PO SORE THROAT 12/28/19 13:15 Home Med (Med Rec Complete!) ASDIRECTED XX 12/27/19 19:45 12/27/19 19:36 DC Hydroxyzine HCl (Atarax) 50 mg Q6H PO 12/30/19 12:00 12/31/19 11:55 Hydroxyzine HCl (Atarax) 100 mg STAT STAT PO 12/30/19 14:24 12/30/19 14:26 DC 12/30/19 15:30 Magnesium Hydroxide (Milk Of Magnesia) 30 ml DAILYPRN PRN PO CONSTIPATION 12/27/19 20:15 Olanzapine (ZyPREXA ZYDIS) 5 mg Q6HP PRN PO AGITATION/ ANXIETY 12/27/19 20:15 12/30/19 14:01 Paliperidone (Invega) 3 mg BID PO 12/27/19 21:00 12/31/19 11:13 DC 12/31/19 09:45 Phenol (Chloraseptic [place]) 5 spray Q2HP PRN MT SORE THROAT 12/28/19 13:15 Trazodone HCl (Desyrel) 50 mg QHSP PRN PO INSOMNIA 12/27/19 20:15 12/28/19 21:34 Allergies Coded Allergies: Penicillins (Verified Allergy, Mild, rash, 08/27/19) vancomycin (Verified Adverse Reaction, Intermediate, ilan syndrome, 08/27/19) HARDY HARDEN NP Dec 31, 2019 17:30
[2019-12-31] MEDS: traZODone 50 MG TAB PO PRN (20:53)
[2020-01-01 00:05] VITALS: BP 112/62
[2020-01-01] MEDS: OLANZapine ORAL DISINTEGRATING TAB 5MG PO PRN (00:07)
[2020-01-01] MEDS ORDERED: IBUPROFEN 400 MG TAB PO PRN (01:00)
[2020-01-01] MEDS: hydrOXYzine 50 MG TAB PO SCH (06:00)
[2020-01-01 06:35] VITALS: BP 102/68
--- NOTE | 2020-01-01 06:59 | HPEPDOC ---
[facility] Medical History & Physical Date of Admission Dec 31, 2019 Date of Service: Dec 31, 2019 Attending Physician: SHAY TOWNSEND MD History and Physical REASON FOR CONSULT / CHIEF COMPLAINT: Seizure HISTORY OF PRESENT ILLNESS: This 19 yr old M was admitted to [facility] for management of an unspecified psychotic disorder and unspecified trauma-stressor disorder after making homicidal statements. This evening he reported feeling like he was having seizures, specifically he felt like the right side of his face was numb, there was pressure behind his right eye, that he had pain on the right side of his head and blurry vision. He reports having a hx of migraines was taking medications prescribed by , but he stopped taking the medications because he received a THC card and felt that the marijuana was more effective in managing his migraines. 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 HOME MEDICATIONS: see below Current Medications Medications (Trade) Dose Ordered Sig/Magaly Route PRN Reason Start Time Stop Time Status Last Admin Dose Admin Hydroxyzine HCl (Atarax) 50 mg Q6H PO 12/30/19 12:00 12/31/19 18:26 50 MG Ibuprofen (Advil) 400 mg Q8HP PRN PO headache 01/01/20 01:00 01/01/20 00:59 400 MG Olanzapine (ZyPREXA ZYDIS) 5 mg Q6HP PRN PO AGITATION/ ANXIETY 12/27/19 20:15 01/01/20 00:07 5 MG Trazodone HCl (Desyrel) 50 mg QHSP PRN PO INSOMNIA 12/27/19 20:15 12/31/19 20:53 50 MG PHYSICAL EXAMINATION: Vital Signs Date Time Temp Pulse Resp B/P (MAP) Pulse Ox O2 Delivery O2 Flow Rate FiO2 01/01/20 06:35 99.0 108 18 102/68 (79) 01/01/20 00:05 97.0 126 20 112/62 (79) 97 Room Air GENERAL APPEARANCE: slim build / NAD HEENT: EOMI /MM pink CARDIOVASCULAR: RRR/NMRG LUNGS: CTAB on RA ABDOMEN: flat MUSCULOSKELETAL: NCAT / gait normal EXTREMITIES: absent radii bilaterally NEUROLOGICAL: CN 2-12 grossly / intact speech not dysarthric / no nystagmus PSYCHIATRIC: A&O x3 / able to understand and follow commands LABORATORY DATA: n/a IMAGING: n/a ASSESSMENT: is a 19 yr old w a hx of Migraines & TAR syndrome who was admitted to [facility] for management of an unspecified psychotic disorder and unspecified trauma- stressor disorder after making homicidal statements; we were reconsulted to evaluate him bc he felt like he may be having a seizure but the description of his right sided eye pressure, head pressure and facial paresthesia possibly due to an atypical headache. PLAN: 1. Headache Differential includes cluster ELIZONDO, less likely trigeminal neuralgia, or SUNCT, or migraine Plan: start a trail of Ibuprofen / c/w acetaminophen/ he can follow up with on an out pt basis for further evaluation and to discuss possibly resuming his migraine medications Thank you for consulting us, we will sign off. Vital Signs Vital Signs Date Time Temp Pulse Resp B/P (MAP) Pulse Ox O2 Delivery O2 Flow Rate FiO2 01/01/20 06:35 99.0 108 18 102/68 (79) 01/01/20 00:05 97 Room Air Laboratory Data Microbiology Microbiology 12/28/19 Urine Culture - Final, Complete Home Medications No Active Prescriptions or Reported Meds Allergies Coded Allergies: Penicillins (Verified Allergy, Mild, rash, 08/27/19) vancomycin (Verified Adverse Reaction, Intermediate, ilan syndrome, 08/27/19) A-FIB/CHADSVASC A-FIB History Current/History of A-Fib/PAF?: No Current PO Anticoag Therapy: No Age/Risk Factor Scoring CHADSVASC: CHADSVASC Response (Comments) Value Age Risk Factor Age < 65 years old 0 Gender Risk Factor Male 0 Hx of CHF No 0 Hx of HTN No 0 Hx of Stroke/TIA/or VTE No 0 Hx of Diabetes No 0 Hx of Vascular Disease No 0 Total 0 LUZ MARINA MCCABE MD Jan 01, 2020 06:59
[2020-01-01] MEDS ORDERED: hydrOXYzine 25 MG TAB PO PRN (11:45)
[2020-01-01] MEDS ORDERED: HYDR50TA70 PO ×2 (11:52→11:54)
--- NOTE | 2020-01-02 13:08 | MHDS ---
DATE OF ADMISSION: 12/27/2019 DATE OF DISCHARGE: 01/01/2020 DISCHARGE DIAGNOSES: * Unspecified psychotic disorder. * Unspecified trauma/stressor disorder. 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 He was a 941 to [facility] after making suicidal and homicidal threats. He reported that he has a lot of rage and stated that people needed to suffer for what they have done. He presented with fantasy and endorsing premonitions after he had had an overdose in 2014. He reports that he and was awaiting judgment until he was pulled back into his body and then he was brought back to life. He reports that he plays with the [employer] and summoned [employer] who patient explained is an entity who appears to bad people as the Grim Reaper and to good people as family members when they are about to pass. He reported that he was suicidal and was reporting to be homicidal as well. Patient reported to me that he and his sister were having an argument. He reports her to be very derogatory and she stated that he was psychotic. He then became very upset. His grandmother asked him to calm down. He made a statement that he would go out into the [place] and let hunters kill him to which his grandmother then called the Police. He stated to her that if Police came he would take a knife and kill the Police. CONSULTANTS INVOLVED: Please see Medical Consult by provider or the History and Physical on patient's Medical History and Physical. TREATMENT AND PROGRESS ON THE UNIT: Patient was started on 3 mg of paliperidone and hydroxyzine. He reported that yesterday he was having difficulty with the paliperidone reporting that he was having chest pain and (cut out) he reported individual therapy, group therapy, milieu therapy, medication management and safe environment. HOSPITAL COURSE: Patient admitted to Inpatient Mental Health. He was calm and cooperative on the unit, attended group therapy, was seen in the milieu reading and social with his peers. About day 2 into his hospitalization he had less reports of his premonitions and his endorsing of clairvoyant talents. Patient is being discharged today as he reports no depression, suicidal ideation or homicidal ideation. He denies any psychosis. He is not observed with gracie, paranoia, obsessions or delusions. MENTAL STATUS EXAM: Patient is a 19-year-old single, unemployed, domicile male who lives with his grandmother, brother and sister. He again has hypochondroplasia is wearing hospital scrubs sitting upright in a chair, makes good eye contact, smiles on approach. Speech is normal tone and volume. Spontaneous and fluid language skills are intact. Thought processes include reality based, linear and goal oriented thought content. Denies depression, anxiety, suicidal ideation, homicidal ideation, paranoia, dichotomous thinking, rumination. Denies auditory or visual hallucinations. Abstract reasoning and computation: Fair. Description of association: None noted, patient denies. Description of abnormal or psychotic thoughts: None noted, patient denies. Judgment and insight fair to good at times. Orientation: Alert and oriented to person, place, time and situation. Recent and remote memory: Intact. Attention span and concentration: Fair. Language: Expansive. Fund of knowledge: Average. Mood and affect: Patient states his mood is good. Affect is congruent with stated mood. DISCHARGE MEDICATIONS: Patient is prescribed hydroxyzine 50 mg twice daily p.r.n. for anxiety. PLAN AND FOLLOW UP: Patient is following up with [facility]. Please see Discharge Planners Notes. The amount of time spent in coordination of care for this patient was approximately 15 minutes. LINDA
== END 2020-01-01 13:11 | disposition home or self-care (01) | DRG 751 ==
LOC: M ED 16:52 → M ED INP 20:11 → M PSY 21:16
PROVIDERS: ADMIT Psychiatry & Neurology Psychiatry; ATTEND Psychiatry & Neurology Psychiatry
DX: F29 Unspecified psychosis not due to a substance or known physiological condition (principal); F43.9 Reaction to severe stress, unspecified; Z62.810 Personal history of physical and sexual abuse in childhood; Q87.2 Congenital malformation syndromes predominantly involving limbs; D69.6 Thrombocytopenia, unspecified; G44.009 Cluster headache syndrome, unspecified, not intractable; K58.9 Irritable bowel syndrome, unspecified; Z88.0 Allergy status to penicillin; Z88.1 Allergy status to other antibiotic agents; R45.850 Homicidal ideations

== ENCOUNTER 2020-01-08 10:41 | Inpatient (IN) | payer MEDICAID, OTHER ==
[~2020-01-08] VITALS: Ht 157.5 cm; Wt 93.8 kg
[~2020-01-08 10:41] MED LIST changes: +HYDR50TA70 PO
[2020-01-08] MEDS ORDERED: LORazepam 2 MG/ML VIAL As Ordered ONE (10:58)
[2020-01-08] MEDS ORDERED: diphenhydrAMINE 50MG/ML VIAL (J1200) IM ONE (11:00)
[2020-01-08] MEDS ORDERED: LORazepam 2 MG/ML VIAL IM ONE (11:00)
[2020-01-08] MEDS ORDERED: HALOPERIDOL 5MG/ML VIAL (J1630 PER 1) IM ONE (11:00)
[2020-01-08 12:44] LABS: HEMATOCRIT 39.9 % (42.0-52.0); HEMOGLOBIN 13.8 g/dl (13.5-17.5); MEAN CORPUSCULAR HEMOGLOBIN 27.2 pg (27.0-33.0); MEAN CORPUSCULAR HGB CONC 34.6 g/dl (32.0-36.5); MEAN CORPUSCULAR VOLUME 78.7 fl (80.0-96.0); PLATELET COUNT, AUTOMATED 121 10^3/uL (150-450); RED BLOOD COUNT 5.07 10^6/uL (4.30-6.10)
[2020-01-08 13:09] LABS: AMPHETAMINES LEVEL URINE NEGATIVE (NEGATIVE); BARBITURATES URINE NEGATIVE (NEGATIVE); BENZODIAZEPINES URINE NEGATIVE (NEGATIVE); CANNABINOIDS URINE POSITIVE (NEGATIVE); COCAINE METABOLITE URINE NEGATIVE (NEGATIVE); METHADONE URINE NEGATIVE (NEGATIVE); OPIATES URINE NEGATIVE (NEGATIVE); PHENCYCLIDINE URINE NEGATIVE (NEGATIVE)
[2020-01-08 13:17] LABS: ACETAMINOPHEN LEVEL < 2.0 UG/ML (10.0-30.0); ALT/SGPT 25 U/L (12-78); BILIRUBIN,DIRECT 0.1 MG/DL (0.0-0.2); BILIRUBIN,TOTAL 0.5 MG/DL (0.2-1.0); BLOOD UREA NITROGEN 10 MG/DL (7-18); CALCIUM LEVEL 8.4 MG/DL (8.5-10.1); CARBON DIOXIDE LEVEL 27 MEQ/L (21-32); CHLORIDE LEVEL 110 MEQ/L (98-107); ETHYL ALCOHOL (ETHANOL) < 0.003 % (0.000-0.010); GLOMERULAR FILTRATION RATE > 60.0 (>60); GLUCOSE, FASTING 84 MG/DL (70-100); POTASSIUM SERUM 3.5 MEQ/L (3.5-5.1); SALICYLATE LEVEL < 1.7 MG/DL (5.0-30.0); SODIUM LEVEL 142 MEQ/L (136-145); TOTAL PROTEIN 6.5 GM/DL (6.4-8.2)
[2020-01-08] MEDS ORDERED: MOM 30ML SUSPENSION UDC PO PRN (18:00)
[2020-01-08] MEDS ORDERED: OLANZapine 5 MG TAB PO PRN (18:00)
[2020-01-08] MEDS ORDERED: ACETAMINOPHEN TAB 650MG DOSE (2X325MG) PO PRN (18:00)
[2020-01-08] MEDS ORDERED: traZODone 50 MG TAB PO PRN (18:00)
[2020-01-08] MEDS ORDERED: MAALOX 30 ML SUSP *UDC PO PRN (18:00)
[2020-01-08 20:48] VITALS: BP 115/63
[2020-01-09 07:03] VITALS: BP 120/81
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
[2020-01-09 16:45] VITALS: BP 123/69
--- NOTE | 2020-01-09 19:30 | HPEPDOC ---
General Date of Admission Jan 08, 2020 at 18:00 Date of Service: Jan 09, 2020 Chief Complaint The patient is a 19-year-old male admitted with a reason for visit of Unspecified Depressive Do. 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 Today he complains of having a difficulty swallowing which has been going on for a few months. He feels food is sticking at the base of his throat and tending to come up. He has not been able to eat some of the foods. He did complain of this in the earlier admission this month. He feels this is different from his GERD. 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 Father severed diabetes and coronary artery disease Social History Drugs: marijuana Lives with his grandmother. On disability uses marijuana. No tobacco abuse. Denies recent alcohol use A-FIB/CHADSVASC A-FIB History Current/History of A-Fib/PAF?: No Review of Systems Constitutional: Denies: Chills, Fever, Night Sweats Eyes: Denies: Pain, Vision change ENT: Reports: Dysphagia; Denies: Head Aches, Ear Pain Skin: Denies: Rash, Lesions, Breakdown Pulmonary: Denies: Dyspnea, Cough Cardiovascular: Denies: Chest Pain, Palpitations, Orthopnea, Paroxysmal Noc. Dyspnea, Lt Headedness Gastrointestinal: Reports: Abdominal Pain (inthe left lower quadrant sometimes where his kidney is) Genitourinary: Denies: Dysuria, Frequency, Incontinence, Retention Hematologic: Denies: Bruising, Bleeding Excessively Musculoskeletal: Reports: Other Symptoms Physical Examination General Exam: Positive: Alert, Cooperative, No Acute Distress Eye Exam: Positive: PERRLA, Conjunctiva & lids normal, EOMI; Negative: Sclera icteric ENT Exam: Positive: Atraumatic, Mucous membr. moist/pink, Pharynx Normal Neck Exam: Positive: Supple; Negative: JVD, thyromegaly Chest Exam: Positive: Clear to auscultation, Normal air movement Heart Exam: Positive: Rate Normal, Regular Rhythm, Normal S1, Normal S2; Negative: Murmurs, Rubs Abdomen Exam: Positive: Normal bowel sounds, Soft; Negative: Tenderness, Hepatospenomegaly Extremity Exam: Positive: Other (hypochondroplastic both upper extremities. 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 He got a knife and went into the [place] to wait for the police. I am seeing the patient for medical history and physical Difficulty in swallowing some foods will get a cookie swallow. Depression/ other psych issues as per psychiatry. Chronic thrombocytopenia stable at 120s Plan / VTE VTE Prophylaxis Ordered?: No KALA DODSON MD Jan 09, 2020 19:30
[2020-01-09] MEDS: hydrOXYzine 50 MG TAB PO PRN (20:14)
[2020-01-10 06:58] VITALS: BP 115/65
--- NOTE | 2020-01-10 10:02 | MHIPNPDOC ---
[facility] Progress Note Progress Note DATE OF SERVICE: 01/10/20 HISTORY: Patient is a 19 -year-old , male, with a recent admission and discharge from this facility for similar circumstances. (12/27/19-01/01/20) On this occasion, he reports that his sister was agitating him and they were arguing and he grabbed a knife and ran from the house. He states that he and his sister were arguing, it continued on when he began to accuse her of taking advantage of his grandmother. He states that his sister has a place to live but chooses to live with the grandparents. He states that she is not helping the Grandmother with any household expenses and damages his Grandmother's property with her usage. This was the subject of the fight and this instigated his explosive reaction. He reportedly made a suicidal and homicidal statement. Patient denies this. . VITAL SIGNS: See below. NEW TEST RESULTS: CURRENT MEDICATIONS: See below. MENTAL STATUS EXAMINATION: Patient is a 19-year old Single, Unemployed, Disabled (TAR syndrome) male, who is admitted to [facility] for threatening to harm himself and his sister. He is appropriately dressed in hospital scrubs, hygiene and grooming is good. His eye contact is good. No psychomotor agitation or retardation. Speech: Is spontaneous and fluid, he is conversant, normal rate, tone and volume Language skills are intact Thought processes including: linear and goal oriented Thought content: reports emotional dysregulation, which does appear to be bipolar symptoma Abstract reasoning, and computation: fair Description of associations: none observed, patient denies Description of abnormal or psychotic thoughts: patient denies, none observed Judgment: fair Insight: fair Orientation: alert and oriented to person, place, time and situation Recent and remote memory: intact Attention span and concentration: good Language: expansive Fund of knowledge: average Mood: "I feel numb sometimes." Affect: Flat DIAGNOSES: Unspecified Mood Disorder Unspecified Trauma Stressor Disorder Intermittent Explosive Disorder r/o Bipolar Disorder, per old chart ASSESSMENT: States that he has at times rageful moments that are more often than not. Wants to scream and feels like it is built up pressure all the time. This feeling of rage has been going all the time, not angry or depressed but feels it in his chest. When someone makes him angry, he feels like it might be like when someone is on steroids. Reports that he has feelings of anxiety. "When I explode I feel like running, I just want to run. When the release specialist came, I just ran. My brain keeps in and I go into survival mode" I had patient fill out a Mood Disorder Questionnaire, will follow up on results when this is comple aurora. 1230 - Patient found in the hallway, attempting to possibly elope. He then is found a 2nd time yelling and stating that other people are making derogatory statements, including that a nurse made a derogatory statement. He was brought into my office a time for de-escalation. He threatens to harm his peers if anyone speaks to him. Threatens to get verbally aggressive with nurses. He was ordered Ativan 1 mg po, med nurse came to the office to administer the medication, he willingly took the medications but stated that he was not going to swallow it. I request that he spit it out rather than pretend that he had taken it. Patient continued to spout out "I am going to fuck people up. They think they can talk to me and there aren't consequences for them?" "I am going to be building weapons, I am going fuck shit up." Patient demanding to be discharged today. Reinforced that with his statements, he is not stable for discharge. MANAGEMENT PLAN: I am going to start the patient on a low dose of Seroquel 12.5 mg as he has been treatment naive and hopefully this might mitigate his mood dysregulations. TIME SPENT: 25 minutes. Vital Signs Vital Signs Date Time Temp Pulse Resp B/P (MAP) Pulse Ox O2 Delivery O2 Flow Rate FiO2 01/10/20 06:58 98.7 69 16 115/65 (82) 99 Room Air Current Medications Current Medications Medications (Trade) Dose Ordered Sig/Magaly Route PRN Reason Start Time Stop Time Status Last Admin Dose Admin Acetaminophen (Tylenol Tab) 650 mg Q6HP PRN PO HEADACHE or DISCOMFORT 01/08/20 18:00 Al Hydrox/Mg Hydrox/Simethicone (Mylanta) 30 ml Q4HP PRN PO HEARTBURN/INDIGESTION 01/08/20 18:00 Home Med (Med Rec Complete!) ASDIRECTED XX 01/08/20 14:15 10/28/20 14:07 DC Hydroxyzine HCl (Atarax) 50 mg BIDP PRN PO ANXIETY/AGITATION 01/08/20 20:30 01/09/20 20:14 Magnesium Hydroxide (Milk Of Magnesia) 30 ml DAILYPRN PRN PO CONSTIPATION 01/08/20 18:00 Olanzapine (ZyPREXA) 10 mg Q4HP PRN PO AGITATION/ANXIETY 01/08/20 18:00 Trazodone HCl (Desyrel) 50 mg QHSP PRN PO INSOMNIA 01/08/20 18:00 Allergies Coded Allergies: Penicillins (Verified Allergy, Mild, rash, 08/27/19) vancomycin (Verified Adverse Reaction, Intermediate, ilan syndrome, 08/27/19) HARDY HARDEN NP Jan 10, 2020 09:35
[2020-01-10] MEDS: hydrOXYzine 50 MG TAB PO PRN (11:10)
[2020-01-10] MEDS ORDERED: LORazepam 1 MG TAB PO STA (12:38)
[2020-01-10 16:02] VITALS: BP 107/64
--- NOTE | 2020-01-10 18:48 | IPNPDOC ---
Date Seen The patient was seen on 01/10/20. Progress Note SUBJECTIVE: called to assess patient for complaint of L wrist pain and swelling. Patient has a rare microdeletion syndrome - TAR (thrombocytopenia absent radius syndrome). States was in an altercation with police, ran into the [place] to hide and suspects he touches branches of a poisonous plant. He complaints of a burning rash on palmar wrist aspect, oval in shape without wheals or vesicles. He denies limitation in ROM. Patient has numerous other complants. He endorses having mild diffuse abdominal pain with watery diarhea for past 2 days, once per day without blood.H E reports having subjective fevers and chills, and endorses a burning chest pain on the L side, worsened by palpation. He describes numerous sites of pain, including the L hip, which is afflicted by hip dysplasia seen on prior imaging. He denies dysuria. OBJECTIVE PHYSICAL EXAMINATION: VITAL SIGNS: Please see below. General: NAD, comfortable HEENT: PERRLA, EOMI, sclerae clear Neck: supple, normal ROM, no JVD Respiratory: lungs CTAB, no wheeze, no rales, no crackles CVS: RRR, normal S1, S2, no murmurs Abdo: soft, no masses, no hepatosplenomegaly, BS+, no rebound tenderness Extremities: no edema, pulses 2+ MSK: hypochondroplasia of bilateral upper extremities. No pain to joint palpation, ROM preserved, without pain. Skin: oval erythematous rash on palmar aspect of L wrist, no wheels, no vesicles. pain to gentle rash palpation. Neuro: no focal neuro deficits, moving all 4 extremities Psych: calm, cooperative, AAO x 3 LABORATORY DATA, IMAGING STUDIES, MICROBIOLOGY: Please see below. 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 PROBLEMS: #L wrist pain/rash: possible allergic/contact dermatitis, hx of running through wooded area. Trial hydrocortisone. No xrays for now as no joint pain or limitation in ROM. #Chest pain: will check CXR, EKG, set of trops although I suspect there is low risk for cardiac ischemia. Likely costochondritis vs GERD. #Leukocytosis: cause unknown, patient describes subjective chills/fevers. Check CXR. Repeat CBC. #TAR syndrome: associated with numerous co-morbidities, follows with Dr. Pedro Cates, has been referred to nephrology/pulmonology. TAR associated with cardiac anomalies, recommend outpatient 2D echo. No prior echo study available in emr. #Abdo pain: associated with once daily episode of diarrhea. No hx recent abx use. Associated with burning in chest. Likely gastritis. Trial PPI. VS, I&O, 24H, Fishbone Vital Signs/I&O Vital Signs Date Time Temp Pulse Resp B/P (MAP) Pulse Ox O2 Delivery O2 Flow Rate FiO2 01/10/20 16:02 98.0 88 16 107/64 (78) 01/10/20 06:58 99 Room Air SUZY BLOOM MD Jan 10, 2020 18:48
[2020-01-10 19:37] LABS: BASO % 0.3 % (0.0-1.0); EOS # 0.3 10^3/uL (0.0-0.5); EOS % 2.9 % (0.0-3.0); HEMATOCRIT 42.7 % (42.0-52.0); HEMOGLOBIN 14.4 g/dl (13.5-17.5); LYMPH # 1.6 10^3/uL (1.5-5.0); LYMPH % 17.3 % (24.0-44.0); MEAN CORPUSCULAR HEMOGLOBIN 26.5 pg (27.0-33.0); MEAN CORPUSCULAR HGB CONC 33.7 g/dl (32.0-36.5); MEAN CORPUSCULAR VOLUME 78.5 fl (80.0-96.0); MONO # 0.3 10^3/uL (0.0-0.8); MONO % 3.7 % (0.0-5.0); NEUTROPHILS % 75.3 % (36.0-66.0); PLATELET COUNT, AUTOMATED 147 10^3/uL (150-450); RED BLOOD COUNT 5.44 10^6/uL (4.30-6.10); WHITE BLOOD COUNT 9.3 10^3/uL (4.0-10.0)
[2020-01-10 20:06] LABS: ALBUMIN 4.4 GM/DL (3.2-5.2); ALT/SGPT 47 U/L (12-78); BILIRUBIN,TOTAL 0.7 MG/DL (0.2-1.0); BLOOD UREA NITROGEN 19 MG/DL (7-18); CALCIUM LEVEL 9.1 MG/DL (8.5-10.1); CARBON DIOXIDE LEVEL 26 MEQ/L (21-32); CHLORIDE LEVEL 106 MEQ/L (98-107); CREATININE FOR GFR 0.96 MG/DL (0.70-1.30); GLOMERULAR FILTRATION RATE > 60.0 (>60); GLUCOSE, FASTING 96 MG/DL (70-100); POTASSIUM SERUM 3.7 MEQ/L (3.5-5.1); SODIUM LEVEL 141 MEQ/L (136-145); TOTAL PROTEIN 7.4 GM/DL (6.4-8.2); TROPONIN I < 0.02 NG/ML (< 0.10)
[2020-01-10] MEDS: GI COCKTAIL 50ML BTL(HYOSCYAMINE/MAALOX/LIDOCAINE VISCOUS)(1:3:1) PO ONE ×2 (20:22→21:05)
[2020-01-10] MEDS: HYDROCORTISONE 2.5% 20GM OINTMENT TOP SCH (20:22)
--- NOTE | 2020-01-10 20:24 | REP ---
INDICATION: cough. COMPARISON: Comparison chest x-ray August 27, 2019.. TECHNIQUE: Sitting AP view. FINDINGS: Lungs are well inflated and clear. No infiltrate is seen. The pleural angles are sharp. Heart size is normal. Pulmonary vasculature is not increased. IMPRESSION: No active disease. <Electronically signed by Raulito Trevino > 01/10/202019
[2020-01-10] MEDS ORDERED: QUEtiapine FUMARATE 12.5 MG HALF-TAB PO SCH (21:00)
[2020-01-11 06:46] VITALS: BP 134/83
[2020-01-11] MEDS: HYDROCORTISONE 2.5% 20GM OINTMENT TOP SCH ×2 (09:10→20:29)
--- NOTE | 2020-01-11 11:12 | IPNPDOC ---
Date Seen The patient was seen on 01/11/20. Progress Note Reviewed labs. WBC wnl. Trop negative. CXR without acute findings. EKG was canceled by unit? Regarding painful rash on L wrist - has improved per patient after betamethasone. Chest pain resolved. Will re-order EKG. VS, I&O, 24H, Wolf Vital Signs/I&O Vital Signs Date Time Temp Pulse Resp B/P (MAP) Pulse Ox O2 Delivery O2 Flow Rate FiO2 01/11/20 06:46 97.8 88 18 134/83 (100) 01/10/20 06:58 99 Room Air Laboratory Data 24H LABS Laboratory Tests 2 01/10/20 19:11: Immature Granulocyte % (Auto) 0.5, Neutrophils (%) (Auto) 75.3H, Lymphocytes (%) (Auto) 17.3L, Monocytes (%) (Auto) 3.7, Eosinophils (%) (Auto) 2.9, Basophils (%) (Auto) 0.3, Neutrophils # (Auto) 7.0, Lymphocytes # (Auto) 1.6, Monocytes # (Auto) 0.3, Eosinophils # (Auto) 0.3, Basophils # (Auto) 0.0, Nucleated Red Blood Cells % (auto) 0.0, Anion Gap 9, Glomerular Filtration Rate > 60.0, Calcium Level 9.1, Total Bilirubin 0.7, Aspartate Amino Transf (AST/SGOT) 50H, Alanine Aminotransferase (ALT/SGPT) 47, Alkaline Phosphatase 53, Troponin I < 0.02, Total Protein 7.4, Albumin 4.4, Albumin/Globulin Ratio 1.5 CBC/BMP Laboratory Tests 01/10/20 19:11 SUZY BLOOM MD Jan 11, 2020 11:12
--- NOTE | 2020-01-11 13:00 | MHIPNPDOC ---
[facility] Progress Note Progress Note DATE OF SERVICE: 01/11/20 HPI: Tylor was met with today. He reports that hes doing much better on Seroquel and wants to see if he can have it increased. He states that it helps him feel more leveled and less irritable. He has been doing better today with less lashing out at others. Objective Appearance: Appears to be stated age. Well nourished. Well groomed. Behavior: Cooperative with good eye contact. Pleasant. Engaged. Affect: Full range. Appropriate to context. Mood: Generally good. Appropriately reactive. Euthymic. Speech: Normal rate. Spontaneous and Fluid. Normal volume. Motor: No gross motor abnormalities. Cognition: Alert, Attentive, and Oriented to person, place, time. Memory: No formal testing. No gross abnormalities of short or intermediate memory noted during interview. Thought Form: Linear and goal directed. Thought Content: No evidence of aggressive or homicidal ideation. No evidence of suicidal ideation. No thoughts of self harm. No evidence of delusions. Perception: No perceptual abnormalities noted. Judgement: Intact as evidenced by decision making in the recent past. Insight: Good insight into symptoms and treatment options. Assessment F32.89 Other specified depressive episodes Plan He seems to be making good progress and irritations likely secondary to personality traits, unclear personality disorder. Increase the dose of Seroquel to 25 mg daily XR for PRN to determine if hell improve. Vital Signs Vital Signs Date Time Temp Pulse Resp B/P (MAP) Pulse Ox O2 Delivery O2 Flow Rate FiO2 01/11/20 06:46 97.8 88 18 134/83 (100) 01/10/20 06:58 99 Room Air Laboratory Data 24H Labs Laboratory Tests 2 01/10/20 19:11: Immature Granulocyte % (Auto) 0.5, Neutrophils (%) (Auto) 75.3H, Lymphocytes (%) (Auto) 17.3L, Monocytes (%) (Auto) 3.7, Eosinophils (%) (Auto) 2.9, Basophils (%) (Auto) 0.3, Neutrophils # (Auto) 7.0, Lymphocytes # (Auto) 1.6, Monocytes # (Auto) 0.3, Eosinophils # (Auto) 0.3, Basophils # (Auto) 0.0, Nucleated Red Blood Cells % (auto) 0.0, Anion Gap 9, Glomerular Filtration Rate > 60.0, Calcium Level 9.1, Total Bilirubin 0.7, Aspartate Amino Transf (AST/SGOT) 50H, Alanine Aminotransferase (ALT/SGPT) 47, Alkaline Phosphatase 53, Troponin I < 0.02, Total Protein 7.4, Albumin 4.4, Albumin/Globulin Ratio 1.5 CBC/BMP Laboratory Tests 01/10/20 19:11 Current Medications Current Medications Medications (Trade) Dose Ordered Sig/Magaly Route PRN Reason Start Time Stop Time Status Last Admin Dose Admin Acetaminophen (Tylenol Tab) 650 mg Q6HP PRN PO HEADACHE or DISCOMFORT 01/08/20 18:00 Al Hydrox/Mg Hydrox/Simethicone (Mylanta) 30 ml Q4HP PRN PO HEARTBURN/INDIGESTION 01/08/20 18:00 01/10/20 14:52 Home Med (Med Rec Complete!) ASDIRECTED XX 01/08/20 14:15 01/08/20 14:07 DC Hydrocortisone (Hydrocortisone 2.5% Ointment) apply to L wrist area BID TOP 01/10/20 21:00 01/11/20 09:10 Hydroxyzine HCl (Atarax) 50 mg BIDP PRN PO ANXIETY/AGITATION 01/08/20 20:30 01/10/20 11:10 Lorazepam (Ativan) 1 mg STAT STAT PO 01/10/20 12:38 01/10/20 12:40 DC Magnesium Hydroxide (Milk Of Magnesia) 30 ml DAILYPRN PRN PO CONSTIPATION 01/08/20 18:00 Olanzapine (ZyPREXA) 10 mg Q4HP PRN PO AGITATION/ANXIETY 01/08/20 18:00 Quetiapine Fumarate (SEROquel) 12.5 mg QHS PO 01/10/20 21:00 01/10/20 20:22 Trazodone HCl (Desyrel) 50 mg QHSP PRN PO INSOMNIA 01/08/20 18:00 Allergies Coded Allergies: Penicillins (Verified Allergy, Mild, rash, 08/27/19) vancomycin (Verified Adverse Reaction, Intermediate, ilan syndrome, 08/27/19) JAYLA LUI DO Jan 11, 2020 13:00
[2020-01-11 16:22] VITALS: BP 129/66
[2020-01-11] MEDS: QUEtiapine FUMARATE 25 MG TAB PO PRN (18:22)
[2020-01-11] MEDS ORDERED: QUEtiapine FUMARATE 12.5 MG HALF-TAB PO SCH (21:00)
[2020-01-12 06:42] VITALS: BP 153/72
[2020-01-12] MEDS: HYDROCORTISONE 2.5% 20GM OINTMENT TOP SCH ×2 (07:55→21:00)
[2020-01-12] MEDS: QUEtiapine FUMARATE 25 MG TAB PO PRN (07:58)
--- NOTE | 2020-01-12 09:33 | ECGEPIP ---
[facility] Test Date: 2020-01-11 Pat Name: ALENA BARTON Department: Room: [place] [address] Gender: Male Manager Web Application: : 2000 Requested By: SUZY BLOOM Order Number: [id number] Reading MD: Jose Alejadnro Dean Measurements Intervals [place] [facility] Rate: 109 P: 71 MD: 102 QRS: 79 QRSD: 82 T: 68 QT: 297 QTc: 401 Interpretive Statements SINUS TACHYCARDIA WITH SHORT MD INTERVAL Within normal limits for age Much slower heart rate and resolution of previous diffuse ST/T wave abnormalities f from 08/27/19 Electronically Signed on 01-12-2020 9:32:48 EST by Jose Alejandro Dean
--- NOTE | 2020-01-12 15:01 | MHIPNPDOC ---
[facility] Progress Note Progress Note DATE OF SERVICE: 01/12/20 Subjective HPI: Tylor presents today for a follow up. Patient states he is doing quite well and making good improvement. MEDICATIONS: Patient is currently on Seroquel. He states the medication helps with preventing suicidal and homicidal thoughts. Objective Appearance: Appears to be stated age. Well nourished. Well groomed. Behavior: Pleasant. Engaged. Cooperative with good eye contact. Affect: Full range. Appropriate to context. Mood: Euthymic. Generally good. Appropriately reactive. Speech: Normal volume. Spontaneous and Fluid. Normal rate. Motor: No gross motor abnormalities. Cognition: Alert, Attentive, and Oriented to person, place, time. Memory: No formal testing. No gross abnormalities of short or residential memory noted during interview. Thought Form: Linear and goal directed. Thought Content: No thoughts of self harm. No evidence of aggressive or homicidal ideation. No evidence of suicidal ideation. No evidence of delusions. Perception: No perceptual abnormalities noted. Judgement: Intact as evidenced by decision making in the recent past. Insight: Good insight into symptoms and treatment options. Assessment F32.89 Other specified depressive episodes Plan Patient will discuss with his main provider about being discharged tomorrow. Change dosage of Seroquel to 25 milligrams in the morning and 25 mg nightly. Vital Signs Vital Signs Date Time Temp Pulse Resp B/P (MAP) Pulse Ox O2 Delivery O2 Flow Rate FiO2 01/12/20 06:42 97.9 65 14 153/72 (99) 98 Room Air Current Medications Current Medications Medications (Trade) Dose Ordered Sig/Magaly Route PRN Reason Start Time Stop Time Status Last Admin Dose Admin Acetaminophen (Tylenol Tab) 650 mg Q6HP PRN PO HEADACHE or DISCOMFORT 01/08/20 18:00 Al Hydrox/Mg Hydrox/Simethicone (Mylanta) 30 ml Q4HP PRN PO HEARTBURN/INDIGESTION 01/08/20 18:00 01/10/20 14:52 Home Med (Med Rec Complete!) ASDIRECTED XX 01/08/20 14:15 01/08/20 14:07 DC Hydrocortisone (Hydrocortisone 2.5% Ointment) apply to L wrist area BID TOP 01/10/20 21:00 01/12/20 07:55 Hydroxyzine HCl (Atarax) 50 mg BIDP PRN PO ANXIETY/AGITATION 01/08/20 20:30 01/10/20 11:10 Lorazepam (Ativan) 1 mg STAT STAT PO 01/10/20 12:38 01/10/20 12:40 DC Magnesium Hydroxide (Milk Of Magnesia) 30 ml DAILYPRN PRN PO CONSTIPATION 01/08/20 18:00 Olanzapine (ZyPREXA) 10 mg Q4HP PRN PO AGITATION/ANXIETY 01/08/20 18:00 Quetiapine Fumarate (SEROquel) 12.5 mg QHS PO 01/10/20 21:00 01/11/20 13:47 DC 01/10/20 20:22 Quetiapine Fumarate (SEROquel) 25 mg Q4HP PRN PO ANXIETY/AGITATION 01/11/20 14:00 01/12/20 07:58 Quetiapine Fumarate (SEROquel) 25 mg QHS PO 01/11/20 21:00 01/11/20 20:29 Trazodone HCl (Desyrel) 50 mg QHSP PRN PO INSOMNIA 01/08/20 18:00 Allergies Coded Allergies: Penicillins (Verified Allergy, Mild, rash, 08/27/19) vancomycin (Verified Adverse Reaction, Intermediate, ilan syndrome, 08/27/19) JAYLA LUI DO Jan 12, 2020 15:01
[2020-01-12 16:28] VITALS: BP 124/60
[2020-01-12] MEDS ORDERED: QUEtiapine FUMARATE 50 MG TAB PO SCH (21:00)
[2020-01-12] MEDS ORDERED: QUEtiapine FUMARATE 12.5 MG HALF-TAB PO SCH (21:00)
[2020-01-13 06:43] VITALS: BP 119/61
[2020-01-13] MEDS: HYDROCORTISONE 2.5% 20GM OINTMENT TOP SCH (08:40)
[2020-01-13] MEDS ORDERED: QUEtiapine FUMARATE 25 MG TAB PO SCH (09:00)
[2020-01-13] MEDS ORDERED: QUET5TAB PO (10:19)
[2020-01-13] MEDS ORDERED: QUET1TAB7 PO (10:19)
--- NOTE | 2020-01-13 11:51 | MHDSPDOC ---
[facility] Discharge Summary Discharge Summary DATE OF ADMISSION: Jan 08, 2020 at 18:00 DATE OF DISCHARGE: January 13, 2020 at 11:35 DISCHARGE DIAGNOSES: Unspecified Depressive Disorder Unspecified Trauma Stressor Disorder Intermittent Explosive Disorder REASON FOR ADMISSION: Patient is a 19 -year-old , male, with a recent admission and discharge from this facility for similar circumstances. (12/27/19- 01/01/20) On this occasion, he reports that his sister was agitating him and they were arguing and he grabbed a knife and ran from the house. He states that he and his sister were arguing, it continued on when he began to accuse her of taking advantage of his grandmother. He states that his sister has a place to live but chooses to live with the grandparents. He states that she is not helping the Grandmother with any household expenses and damages his Grandmother's property with her usage. This was the subject of the fight and t his instigated his explosive reaction. He reportedly made a suicidal and homicidal statement. Patient denies this. CONSULTANTS INVOLVED: See Medical Consultation and reports for this admission. TREATMENT AND PROGRESS ON THE UNIT : Patient was admitted to the [facility] on a 9.39 legal status he was afforded the following treatment modalities: 1) Individual Therapy 2) Group Therapy 3) Medication Management 4) Milieu Therapy 5) Safe Environment HOSPITAL COURSE: Patient was admitted to [facility] on a 9.39 but due to no endorsement of suicidal/homicidal ideation, he was converted to voluntary legal status. Patient reporting that he got into a verbal argument with his sister and he became very angry when she started recording him, he grabbed a knife, he reports that he was not making homicidal threats to her, but made a "stupid" threat when he ran into the youssef. He denies making a threat to police. DISCHARGE ASSESSMENT: Patient has been admitted to this facility for similar episodes and on this occasion he denies depression prior to or currently. He denies all depressive symptoms. At his initial interview he denied suicidal ideation/homicidal ideation planning or intent and throughout this hospitalization he has not voices suicidal/homicidal ideation, planning or intent. He denies and is not observed with abnormal psychiatric symptoms of gracie, psychosis, auditory/visual/tactile hallucinations, rumination, obsession, disorganized thinking, delusional thoughts or bizarre thinking. He initially did not want medications. I educated the patient about a mood stabilizer given his multiple episodes of becoming suicidal and homicidal under extreme stress. Explained that a mood stabilizer may keep him from the labile and severe mood swings which usually occurs when he and his sister have an argument. Patient called his Grandmother and asked her the question if he was allowed to return home. 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 She is hopeful that he can get a job, stating "He just wants someone to give him a chance." Grandmother feels patient is safe to return home and had no further questions for me. 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 He is appropriately dressed in hospital scrubs, hygiene and grooming is good. His eye contact is good. No psychomotor agitation or retardation. Speech: Is spontaneous and fluid, he is conversant, normal rate, tone and volume Language skills are intact Thought processes including: linear and goal oriented Thought content: reports emotional dysregulation, which does appear to be bipolar symptoma Abstract reasoning, and computation: fair Description of associations: none observed, patient denies Description of abnormal or psychotic thoughts: patient denies, he does appear to be mildly grandiose, stating that he should have a job before others (due to his congenital challenge, many jobs would not be appropriate for him due to his ability to perform the duties of the job.) Judgment: fair Insight: fair Orientation: alert and oriented to person, place, time and situation Recent and remote memory: intact Attention span and concentration: good Language: expansive Fund of knowledge: average Mood: "I feel numb sometimes." Affect: Flat MEDICATIONS ON DISCHARGE: Seroquel 50 mg at HS Seroquel 25 mg in AM PLAN/FOLLOWUP ARRANGEMENTS: [facility]. 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 The amount of time spent in the coordination of care for this patient was approximately 20 minutes. Vital Signs/I&Os Vital Signs Date Time Temp Pulse Resp B/P (MAP) Pulse Ox O2 Delivery O2 Flow Rate FiO2 01/13/20 06:43 98.6 83 12 119/61 (80) Room Air 01/12/20 06:42 98 Medications Scheduled Quetiapine Fumarate (Quetiapine Fumarate) 50 Mg Tablet, 50 MG PO QHS for Agitation, #7 Quetiapine Fumarate (Quetiapine Fumarate) 25 Mg Tablet, 25 MG PO QAM for agitation, #7 Allergies Coded Allergies: Penicillins (Verified Allergy, Mild, rash, 08/27/19) vancomycin (Verified Adverse Reaction, Intermediate, ilan syndrome, 08/27/19) HARDY HARDEN NP Jan 13, 2020 11:51
== END 2020-01-13 13:45 | disposition home or self-care (01) | DRG 754 ==
LOC: M ED 10:41 → M ED INP 18:00 → M PSY 20:31
PROVIDERS: ADMIT Psychiatry & Neurology Psychiatry; ATTEND Psychiatry & Neurology Psychiatry
DX: F32.9 Major depressive disorder, single episode, unspecified (principal); Q87.2 Congenital malformation syndromes predominantly involving limbs; Q77.4 Achondroplasia; R13.10 Dysphagia, unspecified; F43.9 Reaction to severe stress, unspecified; F63.81 Intermittent explosive disorder; Z79.899 Other long term (current) drug therapy; Z88.0 Allergy status to penicillin; Z88.1 Allergy status to other antibiotic agents; G43.909 Migraine, unspecified, not intractable, without status migrainosus; K58.9 Irritable bowel syndrome, unspecified; F90.9 Attention-deficit hyperactivity disorder, unspecified type; K21.9 Gastro-esophageal reflux disease without esophagitis; J45.909 Unspecified asthma, uncomplicated; Q63.2 Ectopic kidney; L25.9 Unspecified contact dermatitis, unspecified cause

== ENCOUNTER 2020-03-06 06:52 | Emergency (ER) | payer MEDICAID ==
[~2020-03-06] VITALS: Ht 157.5 cm; Wt 45.3 kg
[~2020-03-06 06:52] MED LIST changes: +QUET1TAB7 PO; +QUET5TAB PO
[2020-03-06] MEDS ORDERED: HYDR50TA70 (07:04)
[2020-03-06] MEDS ORDERED: ALBU8.5H (07:04)
[2020-03-06] MEDS ORDERED: SODIUM CHLORIDE NASAL 0.65% SPRAY BTL (OCEAN) STA (07:42)
[2020-03-06] MEDS ORDERED: BENZONATATE 100 MG CAP PO ONE (07:45)
[2020-03-06] MEDS ORDERED: ACETAMINOPHEN TAB 650MG DOSE (2X325MG) PO ONE (07:45)
[2020-03-06 08:29] VITALS: O2SAT 99
[2020-03-06 08:33] LABS: BASO % 0.5 % (0.0-1.0); EOS # 0.1 10^3/uL (0.0-0.5); EOS % 1.5 % (0.0-3.0); HEMATOCRIT 46.5 % (42.0-52.0); LYMPH # 1.6 10^3/uL (1.5-5.0); LYMPH % 17.7 % (24.0-44.0); MEAN CORPUSCULAR HEMOGLOBIN 27.2 pg (27.0-33.0); MEAN CORPUSCULAR HGB CONC 34.4 g/dl (32.0-36.5); MEAN CORPUSCULAR VOLUME 78.9 fl (80.0-96.0); MONO # 0.4 10^3/uL (0.0-0.8); MONO % 4.7 % (0.0-5.0); NEUTROPHILS # 6.6 10^3/uL (1.5-8.5); NEUTROPHILS % 75.3 % (36.0-66.0); RED BLOOD COUNT 5.89 10^6/uL (4.30-6.10); WHITE BLOOD COUNT 8.8 10^3/uL (4.0-10.0)
[2020-03-06 09:04] LABS: PLATELET COUNT, AUTOMATED 78 10^3/uL (150-450)
--- NOTE | 2020-03-06 09:18 | REP ---
INDICATION: CP, SOB, cough COMPARISON: 01/10/2020 TECHNIQUE: Portable AP view of the chest FINDINGS: The mediastinum and cardiac silhouette are stable and within normal limits for portable technique. The lung leiva are clear without acute consolidation, effusion, or pneumothorax. Skeletal structures are intact. IMPRESSION: No acute cardiopulmonary process appreciated. <Electronically signed by Jovanni Alas > 03/06/20 0915
--- NOTE | 2020-03-06 09:52 | REP ---
INDICATION: neck pain COMPARISON: Soft tissue neck CT dated 04/22/2011 TECHNIQUE: Axial noncontrast images from the skull base to the thoracic inlet with coronal and sagittal re-formations This CT examination was performed using the following dose reduction techniques: Automated exposure control, adjustment of mA and/or kv according to the patient's size, and use of iterative reconstruction technique. FINDINGS: Normal alignment and lordosis is maintained. Cervical vertebral bodies including transverse processes and spinous processes are intact and there is no evidence for acute fracture / compression injury or subluxation. Spinal canal is patent. Posterior elements are intact. Paravertebral soft tissues are normal. IMPRESSION: Normal noncontrast cervical spine CT. No evidence for acute pathology or trauma/injury. <Electronically signed by Jovanni Alas > 03/06/20 0945
[2020-03-06 09:59] LABS: ALBUMIN 5.1 GM/DL (3.2-5.2); ALT/SGPT 15 U/L (12-78); BILIRUBIN,DIRECT 0.3 MG/DL (0.0-0.2); BILIRUBIN,TOTAL 1.2 MG/DL (0.2-1.0); BLOOD UREA NITROGEN 12 MG/DL (7-18); CARBON DIOXIDE LEVEL 23 MEQ/L (21-32); CHLORIDE LEVEL 110 MEQ/L (98-107); CK-MB VALUE MASS 1.1 NG/ML (<3.6); CPK CREATINE PHOSPHOKINASE 149 U/L (39-308); CREATININE FOR GFR 1.07 MG/DL (0.70-1.30); GLOMERULAR FILTRATION RATE > 60.0 (>60); GLUCOSE, FASTING 83 MG/DL (70-100); LIPASE 260 U/L (73-393); MB/CK RELATIVE INDEX 0.74 (< OR =4); POTASSIUM SERUM 3.6 MEQ/L (3.5-5.1); SODIUM LEVEL 142 MEQ/L (136-145); TOTAL PROTEIN 7.9 GM/DL (6.4-8.2); TROPONIN I < 0.02 NG/ML (< 0.10)
[2020-03-06] MEDS ORDERED: TESS100C PO (10:29)
[2020-03-06] MEDS ORDERED: PROAAER10 INH (10:29)
[2020-03-06 11:20] VITALS: BP 148/90
--- NOTE | 2020-03-06 15:49 | ECGEPIP ---
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
[2020-03-06] MEDS ORDERED: PRED20TA PO (20:41)
== END 2020-03-06 11:21 | disposition home or self-care (01) ==
LOC: M ED 06:52
DX: J06.9 Acute upper respiratory infection, unspecified (principal); J45.20 Mild intermittent asthma, uncomplicated; R07.89 Other chest pain; S16.1XXA Strain of muscle, fascia and tendon at neck level, initial encounter; X50.9XXA Other and unspecified overexertion or strenuous movements or postures, initial encounter; Y92.89 Other specified places as the place of occurrence of the external cause; Y93.89 Activity, other specified; Y99.8 Other external cause status; D69.6 Thrombocytopenia, unspecified; E80.6 Other disorders of bilirubin metabolism; G47.30 Sleep apnea, unspecified; K58.9 Irritable bowel syndrome, unspecified; F41.9 Anxiety disorder, unspecified; F32.9 Major depressive disorder, single episode, unspecified; Q87.2 Congenital malformation syndromes predominantly involving limbs; Z88.0 Allergy status to penicillin; Z88.1 Allergy status to other antibiotic agents; Z79.899 Other long term (current) drug therapy
CPT/HCPCS: 36415; 71045; 72125; 80048; 80076; 82550; 82553; 83690; 85025; 85049; 85055; 93005; 99284; U0003

== ENCOUNTER 2020-03-06 19:24 | Emergency (ER) | payer MEDICAID, OTHER ==
[~2020-03-06] VITALS: Ht 157.5 cm; Wt 45.4 kg
[~2020-03-06 19:24] MED LIST changes: +ALBU8.5H; +HYDR50TA70
[2020-03-06] MEDS ORDERED: OXYMETAZOLINE 0.05% NASAL SPRAY (AFRIN) ONE (20:30)
[2020-03-06] MEDS ORDERED: BENZONATATE 100 MG CAP PO ONE (20:30)
[2020-03-06] MEDS ORDERED: predniSONE 20 MG TAB PO ONE (20:30)
[2020-03-06] MEDS ORDERED: PRED20TA PO (20:41)
[2020-03-06 21:05] VITALS: BP 118/75
== END 2020-03-06 21:10 | disposition home or self-care (01) ==
LOC: M ED 19:24
DX: J06.9 Acute upper respiratory infection, unspecified (principal); F41.9 Anxiety disorder, unspecified; R07.9 Chest pain, unspecified; J45.909 Unspecified asthma, uncomplicated; G47.30 Sleep apnea, unspecified; K58.9 Irritable bowel syndrome, unspecified; F32.9 Major depressive disorder, single episode, unspecified; F90.9 Attention-deficit hyperactivity disorder, unspecified type; D69.6 Thrombocytopenia, unspecified; Q87.2 Congenital malformation syndromes predominantly involving limbs; Z86.14 Personal history of Methicillin resistant Staphylococcus aureus infection; Z88.1 Allergy status to other antibiotic agents; Z79.899 Other long term (current) drug therapy

== ENCOUNTER → 2020-03-10 | Outpatient (REF) | payer OTHER | LOC: M LAB REF 13:08 | PROVIDERS: ATTEND Physician Assistant Medical | DX: Z11.59 Encounter for screening for other viral diseases (principal) ==

== ENCOUNTER → 2020-03-11 | Outpatient (REF) | payer OTHER ==
[2020-03-11 17:00] LABS: ALBUMIN 5.4 GM/DL (3.2-5.2); ALT/SGPT 15 U/L (12-78); BILIRUBIN,TOTAL 1.2 MG/DL (0.2-1.0); BLOOD UREA NITROGEN 16 MG/DL (7-18); CALCIUM LEVEL 9.6 MG/DL (8.5-10.1); CARBON DIOXIDE LEVEL 22 MEQ/L (21-32); CHLORIDE LEVEL 107 MEQ/L (98-107); CREATININE FOR GFR 0.99 MG/DL (0.70-1.30); GLOMERULAR FILTRATION RATE > 60.0 (>60); GLUCOSE, FASTING 137 MG/DL (70-100); POTASSIUM SERUM 4.1 MEQ/L (3.5-5.1); SODIUM LEVEL 137 MEQ/L (136-145); TOTAL PROTEIN 8.4 GM/DL (6.4-8.2)
[2020-03-11 17:16] LABS: BASO % 0.2 % (0.0-1.0); EOS % 0.1 % (0.0-3.0); HEMATOCRIT 47.9 % (42.0-52.0); HEMOGLOBIN 16.6 g/dl (13.5-17.5); LYMPH # 0.7 10^3/uL (1.5-5.0); LYMPH % 5.8 % (24.0-44.0); MEAN CORPUSCULAR HEMOGLOBIN 26.9 pg (27.0-33.0); MEAN CORPUSCULAR HGB CONC 34.7 g/dl (32.0-36.5); MEAN CORPUSCULAR VOLUME 77.6 fl (80.0-96.0); MONO # 0.1 10^3/uL (0.0-0.8); MONO % 0.6 % (0.0-5.0); NEUTROPHILS # 11.1 10^3/uL (1.5-8.5); NEUTROPHILS % 92.6 % (36.0-66.0); PLATELET COUNT, AUTOMATED 141 10^3/uL (150-450); RED BLOOD COUNT 6.17 10^6/uL (4.30-6.10)
== END ==
LOC: M LAB REF 16:36
PROVIDERS: ATTEND Family Medicine Addiction Medicine
DX: D69.6 Thrombocytopenia, unspecified (principal); R74.8 Abnormal levels of other serum enzymes

== ENCOUNTER → 2020-03-27 | Outpatient (REF) | payer OTHER ==
[2020-03-27 17:02] LABS: BASO % 0.6 % (0.0-1.0); EOS # 0.2 10^3/uL (0.0-0.5); EOS % 3.4 % (0.0-3.0); HEMATOCRIT 41.9 % (42.0-52.0); HEMOGLOBIN 14.5 g/dl (13.5-17.5); LYMPH # 1.2 10^3/uL (1.5-5.0); LYMPH % 19.8 % (24.0-44.0); MEAN CORPUSCULAR HEMOGLOBIN 27.4 pg (27.0-33.0); MEAN CORPUSCULAR HGB CONC 34.6 g/dl (32.0-36.5); MEAN CORPUSCULAR VOLUME 79.2 fl (80.0-96.0); MONO # 0.3 10^3/uL (0.0-0.8); MONO % 4.4 % (0.0-5.0); NEUTROPHILS # 4.4 10^3/uL (1.5-8.5); NEUTROPHILS % 70.7 % (36.0-66.0); PLATELET COUNT, AUTOMATED 135 10^3/uL (150-450); RED BLOOD COUNT 5.29 10^6/uL (4.30-6.10); WHITE BLOOD COUNT 6.2 10^3/uL (4.0-10.0)
[2020-03-27 17:37] LABS: ALBUMIN 4.5 GM/DL (3.2-5.2); ALT/SGPT 22 U/L (12-78); BILIRUBIN,TOTAL 0.7 MG/DL (0.2-1.0); BLOOD UREA NITROGEN 11 MG/DL (7-18); CALCIUM LEVEL 8.8 MG/DL (8.5-10.1); CARBON DIOXIDE LEVEL 26 MEQ/L (21-32); CHLORIDE LEVEL 107 MEQ/L (98-107); GLOMERULAR FILTRATION RATE > 60.0 (>60); GLUCOSE, FASTING 89 MG/DL (70-100); POTASSIUM SERUM 3.7 MEQ/L (3.5-5.1); SODIUM LEVEL 140 MEQ/L (136-145); TOTAL PROTEIN 7.1 GM/DL (6.4-8.2)
== END ==
LOC: M LAB REF 16:35
PROVIDERS: ATTEND Family Medicine Addiction Medicine
DX: R94.5 Abnormal results of liver function studies (principal)

== ENCOUNTER → 2020-04-10 | Outpatient (CLI) | payer OTHER ==
--- NOTE | 2020-04-10 08:16 | REP ---
INDICATION: ABNORMAL LIVER FUNCTION TEST RESULTS COMPARISON: 01/10/2019 TECHNIQUE: Real time cortez scale ultrasound examination using curved array transducer. FINDINGS: Liver is normal in contour, size, and echogenicity without focal hepatic lesions identified. Pancreas is incompletely evaluated due to interposed bowel gas but visualized portions are normal. The gallbladder is normal and without gallstones, wall thickening, or pericholecystic fluid. No biliary ductal dilatation is appreciated and the common bile duct measures 4.3 mm diameter. Right kidney is normal in reniform shape without hydronephrosis and measures 9.1 x 5.8 x 3.5 cm. No ascites in the visualized right upper quadrant. IMPRESSION: Normal limited right upper quadrant ultrasound <Electronically signed by Jovanni Alas > 04/10/20 0845
== END ==
LOC: M RAD 07:11
PROVIDERS: ATTEND Family Medicine Addiction Medicine
DX: R94.5 Abnormal results of liver function studies (principal)

== ENCOUNTER 2020-04-30 05:14 | Emergency (ER) | payer OTHER ==
[~2020-04-30] VITALS: Ht 157.5 cm; Wt 44.5 kg
[~2020-04-30 05:14] MED LIST changes: -QUET1TAB7 PO; +QUET25TA3 PO; +QUET50TA3 PO; -QUET5TAB PO
--- OUTSIDE RECORDS SUMMARY | 2020-04-30 05:23 | CCD ---
Author Organization Unknown Address [address] [place] [id number] Phone [phone] Care Team Providers Care Case Management Director Name Role Phone Darryn Pedro Unavailable Unavailable Allergies Code Code System Name Reaction Severity Status Onset RxNorm Clarithromycin Active Penicillins Active Medications Name Status Start Date Stop Date albuterol sulfate 2.5 mg/3 mL (0.083 %) solution for nebulization USE 1 VIAL IN NEBULIZER FOUR TIMES A DAY NEEDED Active Not available albuterol sulfate HFA 90 mcg/actuation a erosol inhaler INHALE 2 PUFFS BY MOUTH EVERY 4 HOURS NEEDED WHEEZING FOR SHORTNESS OF BREATH Active Not available Arnuity Ellipta 100 mcg/actuation powder for inhalation INHALE 1 PUFF BY MOUTH ONCE DAILY Active Not a vailable azithromycin 250 mg tablet Completed 04/10 benzonatate 100 mg capsule TAKE ONE CAPSULE BY MOUTH THREE TIMES A DAY FOR COUGH Completed 04/10/2020 cetirizine 10 mg tablet TAKE ONE TABLET BY MOUTH EVERY DAY Completed 03/14 chlorhexidine gluconate 0.12 % mouthwash Completed 04/10/2020 cimetidine 300 mg tablet TAKE TWO TABLETS BY MOUTH TWICE A DAY Completed 0 04/10/2020 clindamycin phosphate 1 % topical solution Completed 04/10/2020 doxycycline monohydrate 100 mg capsule Completed 04/10/2020 Flovent Diskus 100 mcg/actuation powder for inhalation Inhale 1 puff twice a day by inhalation route. Unknown Not available fluorouracil 5 % topical cream APPLY TO WARTS AT NIGHT COVER WITH BANDAID Completed 04/10/2020 hydroxyzine HCl 50 mg tablet Completed imiquimod 5 % topical cream packet APPLY TO AFFECTED AREA S ONCE DAILY NEEDED Completed 04/10/2020 metoclopramide 5 mg tablet Completed 04/10 omeprazole 20 mg capsule,delayed release Completed 04/10/2020 omeprazole 40 mg capsule,delayed release TAKE ONE CAPSULE BY MOUTH EVERY DAY Completed ondansetron 4 mg disintegrating tablet Completed 04/10/2020 prednisone 20 mg tablet TAKE 2 TABLETS BY MOUTH EVERY DAY Completed 04/10 quetiapine 25 mg tablet Completed 04/10/19 21 quetiapine 50 mg tablet Completed 04/10/19 21 sulfamethoxazole 800 mg-trimethoprim 160 mg tablet Completed 04/10/2020 Systane (propylene glycol) 0.4 %-0.3 % e ye drops INSTILL 1 DROP INTO LEFT EYE DAILY NEEDED FOR BURNING GRITTY SENSATION Completed 04/10/2020 Tab-A-Carlo 400 mcg tablet Completed 2020 valacyclovir 1 gram tablet TAKE ONE TABLET BY MOUTH TWICE A DAY FOR 3 DAYS Completed 04/10/2020 Problems Name Status Onset Date Source Anxiety Active 03/11/2020 Acute Bronchitis Active 03/11/2020 Gastroesophageal Reflux Disease without Esophagitis Active 03/27/2020 Liver Function Tests Abnormal Active 03/27/2020 Thrombocytopenic Disorder Active 04/10/2020 Procedures Date Name Performed by 04/03/2020 US, Liver Information not avai lable Notes: None Results Lab Results Date Name Specimen Result Interpretation Description Value Range Status Address 03/27/2020 CBC W/ Auto Diff Normal White Blood Count 6.2 10 4.0-10.0 10 [facility]: [address] [place] [address] Normal Red Blood Count 5.29 10 4.30-6.10 10 [facility]: [address] [place] [address] Normal Hemoglobin 14.5 g/dL 13.5-17.5 g/dL [facility]: [address] [place] [address] Low Hematocrit 41.9 % 42.0-52.0 % [facility]: [address] [place] [address] Low Mean Corpuscular Volume 79.2 fL 80.0 -96.0 fL [facility]: [address] [place] [address] Normal Mean Corpuscular Hemoglobin 27.4 pg 27.0-33.0 pg [facility]: [address] [place] [address] Normal Mean Corpuscular HGB Conc 34.6 g/dL 32.0-36.5 g/dL [facility]: [address] [place] [address] Normal Red Cell Distribution Width 13.6 % 1 1.5-14.5 % [facility]: [address] [facility] Low Platelet Count, Automated 135 10 150 -450 10 [facility]: [address] [facility] High Neutrophils % 70.7 % 36.0-66.0 % [facility]: [address] [facility] Low Lymph % 19.8 % 24.0-44.0 % [facility]: [address] [facility] Normal Harrison % 4.4 % 0.0-5.0 % [facility]: [address] [facility] High Eos % 3.4 % 0.0-3.0 % [facility]: [address] [facility] Normal Baso % 0.6 % 0.0-1.0 % [facility]: [address] [facility] Normal Immature Granulocyte % 1.1 % 0-3.0 % [facility]: [address] [facility] Normal Nucleated Red Blood Cell % 0.0 % 0- 0 % [facility]: [address] [facility] Normal Neutrophils # 4.4 10 1.5-8.5 10 [facility]: [address] [facility] Low Lymph # 1.2 10 1.5-5.0 10 [facility]: [address] [facility] Normal Harrison # 0.3 10 0.0-0.8 10 [facility]: [address] [facility] Normal Eos # 0.2 10 0.0-0.5 10 [facility]: [address] [facility] Normal Baso # 0.0 10 0.0-0.2 10 [facility]: [address] [facility] 03/27/2020 CMP, Serum or Plasma Normal Glucose, Fastin g 89 mg/dL 70-100 mg/dL [facility]: 83 [address] [facility] Normal Blood Urea Nitrogen 11 mg/dL 7-18 mg /dL [facility]: 0 [facility] Normal Creatinine for GFR 0.90 mg/dL 0.70-1 .30 mg/dL [facility]: 0 [facility] Normal Glomerular Filtration Rate > 60.0 >6 0 [facility]: [address] [facility] Normal Sodium Level 140 mEq/L 136-145 mEq/L [facility]: 0 [facility] Normal Potassium Serum 3.7 mEq/L 3.5-5.1 mE q/L [facility]: [address] [facility] Normal Chloride Level 107 mEq/L 98-107 mEq/ L [facility]: [address] [place] [address] Normal Carbon Dioxide Level 26 mEq/L 21-32 mEq/L [facility]: [address] [place] [address] Low Anion Gap 7 mEq/L 8-16 mEq/L [facility]: [address] [place] [address] Normal Calcium Level 8.8 mg/dL 8.5-10.1 mg/ dL [facility]: 0 [facility] Normal AST/SGOT 15 U/L 7-37 U/L [facility]: 0 [facility] Normal ALT/SGPT 22 U/L 12-78 U/L [facility]: 0 [facility] Normal Alkaline Phosphatase 48 U/L 45-117 U /L [facility]: 0 [facility] Normal Bilirubin,total 0.7 mg/dL 0.2-1.0 mg /dL [facility]: 0 [facility] Normal Total Protein 7.1 gm/dL 6.4-8.2 gm/d L [facility]: 0 [facility] Normal Albumin 4.5 gm/dL 3.2-5.2 gm/dL [facility]: 0 [facility] Normal Albumin/globulin Ratio 1.7 [facility]: [address] [place] [address] 03/11/2020 CMP, Serum or Plasma High Glucose, Fastin g 137 mg/dL 70-100 mg/dL [facility]: 83 0 [facility] Normal Blood Urea Nitrogen 16 mg/dL 7-18 mg /dL [facility]: [address] [facility] Normal Creatinine for GFR 0.99 mg/dL 0.70-1 .30 mg/dL [facility]: [address] [facility] Normal Glomerular Filtration Rate > 60.0 >6 0 [facility]: [address] [facility] Normal Sodium Level 137 mEq/L 136-145 mEq/L [facility]: [address] [facility] Normal Potassium Serum 4.1 mEq/L 3.5-5.1 mE q/L [facility]: [address] [facility] Normal Chloride Level 107 mEq/L 98-107 mEq/ L [facility]: [address] [facility] Normal Carbon Dioxide Level 22 mEq/L 21-32 mEq/L [facility]: [address] [facility] Normal Anion Gap 8 mEq/L 8-16 mEq/L [facility]: [address] [facility] Normal Calcium Level 9.6 mg/dL 8.5-10.1 mg/ dL [facility]: [address] [facility] Normal AST/SGOT 11 U/L 7-37 U/L [facility]: [address] [facility] Normal ALT/SGPT 15 U/L 12-78 U/L [facility]: [address] [facility] Normal Alkaline Phosphatase 53 U/L 45-117 U /L [facility]: [address] [facility] High Bilirubin,total 1.2 mg/dL 0.2-1.0 mg /dL [facility]: [address] [facility] High Total Protein 8.4 gm/dL 6.4-8.2 gm/d L [facility]: 0 [facility] High Albumin 5.4 gm/dL 3.2-5.2 gm/dL [facility]: [address] [facility] Normal Albumin/globulin Ratio 1.8 [facility]: [address] [facility] 03/11/2020 CBC W/ Auto Diff High White Blood Count 12.0 10 4.0-10.0 10 [facility]: [address] [place] [address] High Red Blood Count 6.17 10 4.30-6.10 10 [facility]: [address] [facility] Normal Hemoglobin 16.6 g/dL 13.5-17.5 g/dL [facility]: [address] [place] [address] Normal Hematocrit 47.9 % 42.0-52.0 % [facility]: [address] [place] [address] Low Mean Corpuscular Volume 77.6 fL 80.0 -96.0 fL [facility]: [address] [place] [address] Low Mean Corpuscular Hemoglobin 26.9 pg 27.0-33.0 pg [facility]: [address] [place] [address] Normal Mean Corpuscular HGB Conc 34.7 g/dL 32.0-36.5 g/dL [facility]: 0 [facility] Normal Red Cell Distribution Width 13.2 % 1 1.5-14.5 % [facility]: [address] [place] [address] Low Platelet Count, Automated 141 10 150 -450 10 [facility]: 0 [facility] High Neutrophils % 92.6 % 36.0-66.0 % [facility]: [address] [facility] Low Lymph % 5.8 % 24.0-44.0 % [facility]: [address] [facility] Normal Harrison % 0.6 % 0.0-5.0 % [facility]: 0 [facility] Normal Eos % 0.1 % 0.0-3.0 % [facility]: [address] [facility] Normal Baso % 0.2 % 0.0-1.0 % [facility]: [address] [facility] Normal Immature Granulocyte % 0.7 % 0-3.0 % [facility]: [address] [facility] Normal Nucleated Red Blood Cell % 0.0 % 0- 0 % [facility]: [address] [facility] High Neutrophils # 11.1 10 1.5-8.5 10 [facility]: [address] [facility] Low Lymph # 0.7 10 1.5-5.0 10 [facility]: [address] [facility] Normal Harrison # 0.1 10 0.0-0.8 10 [facility]: [address] [facility] Normal Eos # 0.0 10 0.0-0.5 10 [facility]: [address] [facility] Normal Baso # 0.0 10 0.0-0.2 10 [facility]: [address] [facility] Past Encounters 04/10/2020 Left Upper Quadrant Pain; Anxiety; Liver Function Tests Abnormal; Difficulty Passing Urine; Thrombocytopenic Disorder Pedro Cates MD: [address] [place] [phone], Ph. 03/27/2020 Anxiety; Acquired Thrombocytopenia; Liver Function Tests Abnormal; Chest Pain; Gastroesophageal Reflux Disease without Esophagitis Pedro Cates MD: [address] [place] [phone], Ph. 03/11/2020 Acquired Thrombocytopenia; Elevated Liver Enzymes Level; Acute Bronchitis; Anxiety Pedro Cates MD: [address] [place] [phone], Ph. Social History Tobacco Smoking Status Former Smoker Vaccine List Notes: Pt Declined flu shot Plan of Care Reminders Provider Appointments None recorded. Lab None recorded. Referral None recorded. Procedures None recorded. Surgeries None recorded. Imaging None recorded. Vitals 04/10/2020 09:00AM ESTABLISHED [id number] Height Weight BMI Blood Pressure 62 in 103 lbs 8 oz 18.9 kg/m2 108/77 mm[Hg] 03/27/2020 11:00AM SAME DAY 20 Height Weight BMI Blood Pressure 62 in 101 lbs 6 oz 18.5 kg/m2 102/70 mm[Hg] 03/11/2020 09:20AM ESTABLISHED [id number] Height Weight BMI Blood Pressure 62 in 96 lbs 8 oz 17.6 kg/m2 141/85 mm[Hg]
--- OUTSIDE RECORDS SUMMARY | 2020-04-30 05:23 | CCD ---
Author Organization Unknown Address [address] [place] [address] Phone [phone] Care Team Providers Care News Editor Name Role Phone Cates Pedro Unavailable Unavailable Allergies Code Code System Name Reaction Severity Status Onset Penicillins Active Medications Name Status Start Date Stop Date albuterol sulfate 2.5 mg/3 mL (0.083 %) solution for nebulization Inhale 3 mL 4 times a day by nebulization route as needed. Active Not available albuterol sulfate HFA 90 mcg/actuation a erosol inhaler INHALE 2 PUFFS BY MOUTH EVERY 4 HOURS NEEDED WHEEZING FOR SHORTNESS OF BREATH Active Not available azithromycin 250 mg tablet Active Not a vailable benzonatate 100 mg capsule TAKE ONE CAPSULE BY MOUTH THREE TIMES A DAY FOR COUGH Active Not available cetirizine 10 mg tablet TAKE ONE TABLET BY MOUTH EVERY DAY Active Not available chlorhexidine gluconate 0.12 % mouthwash Active Not available cimetidine 300 mg tablet TAKE TWO TABLETS BY MOUTH TWICE A DAY Active N ot available clindamycin phosphate 1 % topical solution Active Not available doxycycline monohydrate 100 mg capsule Active Not available Flovent Diskus 100 mcg/actuation powder for inhalation Inhale 1 puff twice a day by inhalation route. Active Not available fluorouracil 5 % topical cream APPLY TO WARTS AT NIGHT COVER WITH BANDAID Active Not available hydroxyzine HCl 50 mg tablet Active Not available imiquimod 5 % topical cream packet APPLY TO AFFECTED AREA S ONCE DAILY NEEDED Active Not available metoclopramide 5 mg tablet Active Not a vailable omeprazole 20 mg capsule,delayed release TAKE ONE CAPSULE BY MOUTH TWICE A DAY Active N ot available omeprazole 40 mg capsule,delayed release TAKE ONE CAPSULE BY MOUTH EVERY DAY Active Not available ondansetron 4 mg disintegrating tablet Active Not available prednisone 20 mg tablet TAKE 2 TABLETS BY MOUTH EVERY DAY Active Not a vailable quetiapine 25 mg tablet Active Not avai lable quetiapine 50 mg tablet Active Not avai lable sulfamethoxazole 800 mg-trimethoprim 160 mg tablet Active Not available Systane (propylene glycol) 0.4 %-0.3 % e ye drops INSTILL 1 DROP INTO LEFT EYE DAILY NEEDED FOR BURNING GRITTY SENSATION Active Not available Tab-A-Carlo 400 mcg tablet Active Not av ailable valacyclovir 1 gram tablet TAKE ONE TABLET BY MOUTH TWICE A DAY FOR 3 DAYS Active Not available Problems Name Status Onset Date Source Anxiety Active 03/11/2020 Acute Bronchitis Active 03/11/2020 Procedures Notes: None Results Lab Results None recorded. Past Encounters 03/11/2020 Acquired Thrombocytopenia; Elevated Liver Enzymes Level; Acute Bronchitis; Anxiety Pedro Cates MD: [address] [place] [phone], Ph. Social History Tobacco Smoking Status Former Smoker Vaccine List None recorded. Plan of Care Reminders Provider Appointments None recorded. Lab None recorded. Referral None recorded. Procedures None recorded. Surgeries None recorded. Imaging None recorded. Vitals Height Weight BMI Blood Pressure 62 in 96 lbs 8 oz 17.6 kg/m2 141/85 mm[Hg]
--- OUTSIDE RECORDS SUMMARY | 2020-04-30 05:23 | CCD ---
Author Organization Unknown Address [address] [place] [address] Phone [phone] Care Team Providers Care Director Of Patient Care Name Role Phone Cates Pedro Unavailable Unavailable [...] Level; Acute Bronchitis; Anxiety Pedro Cates MD: [address] [place] [phone], Ph. Social History Tobacco Smoking Status Former Smoker Vaccine List None recorded. Plan of Care Reminders Provider Appointments None recorded. Lab None recorded. Referral None recorded. Procedures None recorded. Surgeries None recorded. Imaging None recorded. Vitals Height Weight BMI Blood Pressure 62 in 96 lbs 8 oz 17.6 kg/m2 141/85 mm[Hg]
--- OUTSIDE RECORDS SUMMARY | 2020-04-30 05:23 | CCD ---
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 Active Not available omeprazole 40 mg capsule,delayed release TAKE [...] 03/27/2020 Liver Function Tests Abnormal Active 03/27/2020 Procedures Notes: None Results Lab Results Date Name Specimen Result Interpretation Description Value Range Status Address 03/11/2020 CMP, Serum or Plasma High Glucose, Fastin g 137 mg/dL 70-100 mg/dL [facility]: 83 0 [facility] Normal Blood Urea Nitrogen 16 mg/dL 7-18 mg /dL [facility]: 0 [facility] Normal Creatinine for GFR 0.99 mg/dL 0.70-1 .30 mg/dL [facility]: 830 [facility] Normal Glomerular Filtration Rate > 60.0 >6 0 [facility]: [address] [facility] Normal Sodium Level 137 mEq/L 136-145 mEq/L [facility]: [address] [facility] Normal Potassium Serum 4.1 mEq/L 3.5-5.1 mE q/L [facility]: [address] [facility] Normal Chloride Level 107 mEq/L 98-107 mEq/ L [facility]: [address] [facility] Normal Carbon Dioxide Level 22 mEq/L 21-32 mEq/L [facility]: [address] [facility] Normal Anion Gap 8 mEq/L 8-16 mEq/L [facility]: 0 [facility] Normal Calcium Level 9.6 mg/dL 8.5-10.1 mg/ dL [facility]: [address] [facility] Normal AST/SGOT 11 U/L 7-37 U/L [facility]: [address] [facility] Normal ALT/SGPT 15 U/L 12-78 U/L [facility]: [address] [place] [address] Normal Alkaline Phosphatase 53 U/L 45-117 U /L [facility]: [address] [place] [address] High Bilirubin,total 1.2 mg/dL 0.2-1.0 mg /dL [facility]: [address] [place] [address] High Total Protein 8.4 gm/dL 6.4-8.2 gm/d L [facility]: [address] [place] [address] High Albumin 5.4 gm/dL 3.2-5.2 gm/dL [facility] [facility]: [address] [place] [address] Normal Albumin/globulin Ratio 1.8 [facility]: [address] [place] [address] 03/11/2020 CBC W/ Auto Diff High White Blood Count 12.0 10 4.0-10.0 10 [facility]: [address] [place] [address] High Red Blood Count 6.17 10 4.30-6.10 10 [facility]: [address] [place] [address] Normal Hemoglobin 16.6 g/dL 13.5-17.5 g/dL [facility]: [address] [place] [address] Normal Hematocrit 47.9 % 42.0-52.0 % [facility]: [address] [place] [address] Low Mean Corpuscular Volume 77.6 fL 80.0 -96.0 fL [facility]: [address] [place] [address] Low Mean Corpuscular Hemoglobin 26.9 pg 27.0-33.0 pg [facility]: [address] [place] [address] Normal Mean Corpuscular HGB Conc 34.7 g/dL 32.0-36.5 g/dL [facility]: [address] [place] [address] Normal Red Cell Distribution Width 13.2 % 1 1.5-14.5 % [facility]: [address] [place] [address] Low Platelet Count, Automated 141 10 150 -450 10 [facility]: [address] [facility] High Neutrophils % 92.6 % 36.0-66.0 % [facility]: [address] [facility] Low Lymph % 5.8 % 24.0-44.0 % Final [facility]: [address] [facility] Normal Piute % 0.6 % 0.0-5.0 % Final [facility]: [address] [place] [address] Normal Eos % 0.1 % 0.0-3.0 % Final [facility]: [address] [facility] Normal Baso % 0.2 % 0.0-1.0 % Final [facility]: [address] [place] [address] Normal Immature Granulocyte % 0.7 % 0-3.0 % [facility]: [address] [place] [address] Normal Nucleated Red Blood Cell % 0.0 % 0- 0 % [facility]: [address] [facility] High Neutrophils # 11.1 10 1.5-8.5 10 [facility]: [address] [facility] Low Lymph # 0.7 10 1.5-5.0 10 [facility]: [address] [facility] Normal Piute # 0.1 10 0.0-0.8 10 [facility]: [address] [facility] Normal Eos # 0.0 10 0.0-0.[address] [facility]: [address] [facility] Normal Baso # 0.0 10 0.0-0.2 10 [facility]: [address] [facility] Past Encounters 03/27/2020 Anxiety; Acquired Thrombocytopenia; Liver Function Tests Abnormal; Chest Pain; Gastroesophageal Reflux Disease without Esophagitis Pedro Cates MD: [address] [place] [phone], Ph. 03/11/2020 Acquired Thrombocytopenia; Elevated Liver Enzymes Level; Acute Bronchitis; Anxiety Pedro Cates MD: [address] [place] [phone], Ph. Social History Tobacco Smoking Status Former Smoker Vaccine List None recorded. Plan of Care Reminders Provider Appointments None recorded. Lab None recorded. Referral None recorded. Procedures None recorded. Surgeries None recorded. Imaging None recorded. Vitals 03/27/2020 11:00AM SAME DAY 20 Height Weight BMI Blood Pressure 62 in 101 lbs 6 oz 18.5 kg/m2 102/70 mm[Hg] 03/11/2020 09:20AM ESTABLISHED [id number] Height Weight BMI Blood Pressure 62 in 96 lbs 8 oz 17.6 kg/m2 141/85 mm[Hg]
--- OUTSIDE RECORDS SUMMARY | 2020-04-30 05:24 | CCD ---
Author Author [facility] Organization [facility] Address Unknown Phone Unavailable Support Name Relationship Address Phone Pedro Cates MD Next Of Kin [address] [place] [address] UN Next Of Kin Unknown Unavailable Adria Hanson MD Next Of Kin [address] [place] [address] DISABLED Next Of Kin Unknown Unavailable UNEMPLOYED Next Of Kin Unknown [facility] Next Of Kin [address] [place] [address] [facility] Next Of Kin [facility] [place] [address] Nu ALDANA Next Of Kin [address] [facility] [address] [place] [address] ISSA ELIZABETH Next Of Kin [address] [facility] [address] [place] [address] ALIDA GALINDO Next Of Kin [address] [place] [address] SEEMA GALINDO Next Of Kin [address] [place] [address] UE Next Of Kin Unknown Unavailable JOVAN, LEGAL GUARDIAN ELIZABETH Next Of Kin [address] [facility] [address] [place] [address] ST Next Of Kin Unknown Unavailable TITIELIZABETH Next Of Kin [address] [facility] [address] [place] [address] TITIELIZABETH ECON [address] [facility] [address] [place] [address] [phone] Care Team Providers [employer] Title Clerk Name Role Phone Francisca Cates MD Unavailable Unavailable Francisca Cates MD Unavailable Unavailable Francisca Cates MD Unavailable Unavailable Francisca Cates MD Unavailable Unavailable Francisca Cates MD Unavailable Unavailable Francisca Cates MD Unavailable Unavailable Francisca Cates MD Unavailable Unavailable Francisca Cates MD Unavailable Unavailable Francisca Cates MD Unavailable Unavailable Francisca Cates MD Unavailable Unavailable Francisca Cates MD Unavailable Unavailable Francisca Cates MD Unavailable Unavailable Francisca Cates MD Unavailable Unavailable Francisca Cates MD Unavailable Unavailable Francisca Cates MD Unavailable Unavailable Francisca Cates MD Unavailable Unavailable Francisca Cates MD Unavailable Unavailable Francisca Cates MD Unavailable Unavailable Francisca Cates MD Unavailable Unavailable Francisca Cates MD Unavailable Unavailable Francisca Cates MD Unavailable Unavailable Francisca Cates MD Unavailable Unavailable Francisca Cates MD Unavailable Unavailable Francisca Cates MD Unavailable Unavailable Francisca Cates MD Unavailable Unavailable Francisca Cates MD Unavailable Unavailable Francisca Cates MD Unavailable Unavailable Francisca Cates MD Unavailable Unavailable Francisca Cates MD Unavailable Unavailable Francisca Cates MD Unavailable Unavailable Francisca Cates MD Unavailable Unavailable Francisca Cates MD Unavailable Unavailable Francisca Cates MD Unavailable Unavailable Francisca Cates MD Unavailable Unavailable Francisca Cates MD Unavailable Unavailable Francisca Cates MD Unavailable Unavailable Francisca Cates MD Unavailable Unavailable Francisca Cates MD Unavailable Unavailable Francisca Cates MD Unavailable Unavailable Francisca Cates MD Unavailable Unavailable Francisca Cates MD Unavailable Unavailable Francisca Cates MD Unavailable Unavailable Francisca Cates MD Unavailable Unavailable Francisca Cates MD Unavailable Unavailable Francisca Cates MD Unavailable Unavailable Francisca Cates MD Unavailable Unavailable Francisca Cates MD Unavailable Unavailable Francisca Cates MD Unavailable Unavailable Francisca Cates MD Unavailable Unavailable Francisca Cates MD Unavailable Unavailable Francisca Cates MD Unavailable Unavailable Francisca Cates MD Unavailable Unavailable Francisca Cates MD Unavailable Unavailable Francisca Cates MD Unavailable Unavailable Francisca Cates MD Unavailable Unavailable Francisca Cates MD Unavailable Unavailable Francisca Cates MD Unavailable Unavailable Francisca Cates MD Unavailable Unavailable Francisca Cates MD Unavailable Unavailable Francisca Cates MD Unavailable Unavailable Francisca Cates MD Unavailable Unavailable Francisca Cates MD Unavailable Unavailable Francisca Cates MD Unavailable Unavailable Francisca Cates MD Unavailable Unavailable Francisca Cates MD Unavailable Unavailable Francisca Cates MD Unavailable Unavailable Francisca Cates MD Unavailable Unavailable Francisca Cates MD Unavailable Unavailable Francisca Cates MD Unavailable Unavailable Francisca Cates MD Unavailable Unavailable Francisca Cates MD Unavailable Unavailable Francisca Cates MD Unavailable Unavailable Francisca Cates MD Unavailable Unavailable Francisca Cates MD Unavailable Unavailable Francisca Cates MD Unavailable Unavailable Francisca Cates MD Unavailable Unavailable Francisca Cates MD Unavailable Unavailable Francisca Cates MD Unavailable Unavailable Francisca Cates MD Unavailable Unavailable Francisca Cates MD Unavailable Unavailable Francisca Cates MD Unavailable Unavailable Francisca Cates MD Unavailable Unavailable Francisca Cates MD Unavailable Unavailable Francisca Cates MD Unavailable Unavailable Francisca Cates MD Unavailable Unavailable Francisca Cates MD Unavailable Unavailable Francisca Cates MD Unavailable Unavailable Francisca Cates MD Unavailable Unavailable Francisca Cates MD Unavailable Unavailable Pedro Stein Unavailable Pedro Stein Unavailable Pedro Stein Unavailable Francisca Cates MD Unavailable Unavailable Francisca Cates MD Unavailable Unavailable Francisca Cates MD Unavailable Unavailable Francisca Cates MD Unavailable Unavailable Francisca Cates MD Unavailable Unavailable Francisca Cates MD Unavailable Unavailable Fracnisca Cates MD Unavailable Unavailable Francisca Cates MD Unavailable Unavailable Francisca Cates MD Unavailable Unavailable Francisca Cates MD Unavailable Unavailable Francisca Cates MD Unavailable Unavailable Francisca Cates MD Unavailable Unavailable Francisca Cates MD Unavailable Unavailable Francisca Cates MD Unavailable Unavailable Francisca Cates MD Unavailable Unavailable Francisca Cates MD Unavailable Unavailable Francisca Cates MD Unavailable Unavailable Francisca Cates MD Unavailable Unavailable Francisca Cates MD Unavailable Unavailable Francisca Cates MD Unavailable Unavailable Francisca Cates MD Unavailable Unavailable Francisca Cates MD Unavailable Unavailable Francisca Cates MD Unavailable Unavailable Francisca Cates MD Unavailable Unavailable Francisca Cates MD Unavailable Unavailable Francisca Cates MD Unavailable Unavailable Francisca Cates MD Unavailable Unavailable Francisca Cates MD Unavailable Unavailable Francisca Cates MD Unavailable Unavailable Francisca Cates MD Unavailable Unavailable Francisca Cates MD Unavailable Unavailable Francisca Cates MD Unavailable Unavailable Francisca Cates MD Unavailable Unavailable Francisca Cates MD Unavailable Unavailable Francisca Cates MD Unavailable Unavailable Francisca Cates MD Unavailable Unavailable Francisca Cates MD Unavailable Unavailable Francisca Cates MD Unavailable Unavailable Francisca Cates MD Unavailable Unavailable Francisca Cates MD Unavailable Unavailable Francisca Cates MD Unavailable Unavailable Francisca Cates MD Unavailable Unavailable Francisca Cates MD Unavailable Unavailable Francisca Cates MD Unavailable Unavailable Francisca Cates MD Unavailable Unavailable Francisca Cates MD Unavailable Unavailable Francisca Cates MD Unavailable Unavailable Francisca Cates MD Unavailable Unavailable Francisca Cates MD Unavailable Unavailable Francisca Cates MD Unavailable Unavailable Francisca Cates MD Unavailable Unavailable Francisca Cates MD Unavailable Unavailable Francisca Cates MD Unavailable Unavailable Francisca Cates MD Unavailable Unavailable Francisca Cates MD Unavailable Unavailable Francisca Cates MD Unavailable Unavailable Francisca Cates MD Unavailable Unavailable Francisca Cates MD Unavailable Unavailable Francisca Cates MD Unavailable Unavailable Francisca Cates MD Unavailable Unavailable Francisca Cates MD Unavailable Unavailable Francisca Cates MD Unavailable Unavailable Francisca Cates MD Unavailable Unavailable Francisca Cates MD Unavailable Unavailable Francisca Cates MD Unavailable Unavailable Francisca Cates MD Unavailable Unavailable Francisca Cates MD Unavailable Unavailable Francisca Cates MD Unavailable Unavailable Francisca Cates MD Unavailable Unavailable Francisca Cates MD Unavailable Unavailable Francisca Cates MD Unavailable Unavailable Francisca Cates MD Unavailable Unavailable Francisca Cates MD Unavailable Unavailable Francisca Cates MD Unavailable Unavailable Francisca Cates MD Unavailable Unavailable Francisca Cates MD Unavailable Unavailable Francisca Cates MD Unavailable Unavailable Francisca Cates MD Unavailable Unavailable Francisca Cates MD Unavailable Unavailable Francisca Cates MD Unavailable Unavailable Francisca Cates MD Unavailable Unavailable Francisca Cates MD Unavailable Unavailable Francisca Cates MD Unavailable Unavailable Francisca Cates MD Unavailable Unavailable Francisca Cates MD Unavailable Unavailable Francisca Cates MD Unavailable Unavailable Francisca Cates MD Unavailable Unavailable Francisca Cates MD Unavailable Unavailable Francisca Cates MD Unavailable Unavailable ALYX ORDAZ Unavailable Unavailable Sesar HANSON MD Unavailable Unavailable Sesar HANSON MD Unavailable Unavailable Sesar HANSON MD Unavailable Unavailable Sesar HANSON MD Unavailable Unavailable Sesar HANSON MD Unavailable Unavailable Sesar HANSON MD Unavailable Unavailable Sesar HANSON MD Unavailable Unavailable Sesar HANSON MD Unavailable Unavailable Sesar HANSON MD Unavailable Unavailable Sesar HANSON MD Unavailable Unavailable Sesar HANSON MD Unavailable Unavailable Sesar HANSON MD Unavailable Unavailable Sesar HANSON MD Unavailable Unavailable Sesar HANSON MD Unavailable Unavailable Sesar HANSON MD Unavailable Unavailable Sesar HANSON MD Unavailable Unavailable Sesar HANSON MD Unavailable Unavailable Sesar HANSON MD Unavailable Unavailable Sesar HANSON MD Unavailable Unavailable Sesar HANSON MD Unavailable Unavailable Sesar HANSON MD Unavailable Unavailable Sesar HANSON MD Unavailable Unavailable Sesar HANSON MD Unavailable Unavailable Sesar HANSON MD Unavailable Unavailable Sesar HANSON MD Unavailable Unavailable Sesar HANSON MD Unavailable Unavailable Sesar HANSON MD Unavailable Unavailable Sesar HANSON MD Unavailable Unavailable Sesar HANSON MD Unavailable Unavailable Sesar HANSON MD Unavailable Unavailable Sesar HANSON MD Unavailable Unavailable Sesar HANSON MD Unavailable Unavailable Sesar HANSON MD Unavailable Unavailable Sesar HANSON MD Unavailable Unavailable Sesar HANSON MD Unavailable Unavailable Sesar HANSON MD Unavailable Unavailable Sesar HANSON MD Unavailable Unavailable Sesar HANSON MD Unavailable Unavailable Sesar HANSON MD Unavailable Unavailable Sesar HANSON MD Unavailable Unavailable Sesar HANSON MD Unavailable Unavailable Sesar HANSON MD Unavailable Unavailable Sesar HANSON MD Unavailable Unavailable Sesar HANSON MD Unavailable Unavailable Sesar HANSON MD Unavailable Unavailable Sesar HANSON MD Unavailable Unavailable Sesar HANSON MD Unavailable Unavailable Sesar HANSON MD Unavailable Unavailable Sesar HANSON MD Unavailable Unavailable Sesar HANSON MD Unavailable Unavailable Sesar HANSON MD Unavailable Unavailable Sesar HANSON MD Unavailable Unavailable Sesar HANSON MD Unavailable Unavailable Sesar HANSON MD Unavailable Unavailable Sesar HANSON MD Unavailable Unavailable Sesar HANSON MD Unavailable Unavailable Sesar HANSON MD Unavailable Unavailable Sesar HANSON MD Unavailable Unavailable Sesar HANSON MD Unavailable Unavailable Sesar HANSON MD Unavailable Unavailable Sesar HANSON MD Unavailable Unavailable Sesar HANSON MD Unavailable Unavailable Sesar HANSON MD Unavailable Unavailable Sesar HANSON MD Unavailable Unavailable Sesar HANSON MD Unavailable Unavailable Sesar HANSON MD Unavailable Unavailable Sesar HANSON MD Unavailable Unavailable Sesar HANSON MD Unavailable Unavailable Sesar HANSON MD Unavailable Unavailable Sesar HANSON MD Unavailable Unavailable Sesar HANSON MD Unavailable Unavailable Sesar HANSON MD Unavailable Unavailable Sesar HANSON MD Unavailable Unavailable Sesar HANSON MD Unavailable Unavailable Sesar HANSON MD Unavailable Unavailable Sesar HANSON MD Unavailable Unavailable Sesar HANSON MD Unavailable Unavailable Sesar HANSON MD Unavailable Unavailable Sesar HANSON MD Unavailable Unavailable Sesar HANSON MD Unavailable Unavailable Sesar HANSON MD Unavailable Unavailable Sesar HANSON MD Unavailable Unavailable Sesar HANSON MD Unavailable Unavailable Frantz Bello Unavailable Frantz Bello Unavailable SUSHMA, S CHRISTOPHER DO Unavailable Unavailable SUSHMA, S CHRISTOPHER DO Unavailable Unavailable SUSHMA, S CHRISTOPHER DO Unavailable Unavailable SUSHMA, S CHRISTOPHER DO Unavailable Unavailable SUSHMA, S CHRISTOPHER DO Unavailable Unavailable SUSHMA, S CHRISTOPHER DO Unavailable Unavailable SUSHMA, S CHRISTOPHER DO Unavailable Unavailable SUSHMA, S CHRISTOPHER DO Unavailable Unavailable SUSHMA, S CHRISTOPHER DO Unavailable Unavailable SUSHMA, S CHRISTOPHER DO Unavailable Unavailable SUSHMA, S CHRISTOPHER DO Unavailable Unavailable SUSHMA, S CHRISTOPHER DO Unavailable Unavailable SUSHMA, S CHRISTOPHER DO Unavailable Unavailable KARDOONI, HAMLIN MD Unavailable Unavailable KARDOONI, HAMLIN MD Unavailable Unavailable KARDOONI, HAMLIN MD Unavailable Unavailable KARDOONI, HAMLIN MD Unavailable Unavailable KARDOONI, HAMLIN MD Unavailable Unavailable KARDOONI, HAMLIN MD Unavailable Unavailable KARDOONI, HAMLIN MD Unavailable Unavailable KARDOONI, HAMLIN MD Unavailable Unavailable KARDOONI, HAMLIN MD Unavailable Unavailable KARDOONI, HAMLIN MD Unavailable Unavailable KARDOONI, HAMLIN MD Unavailable Unavailable KARDOONI, HAMLIN MD Unavailable Unavailable KARDOONI, HAMLIN MD Unavailable Unavailable KARDOONI, HAMLIN MD Unavailable Unavailable KARDOONI, HAMLIN MD Unavailable Unavailable KARDOONI, HAMLIN MD Unavailable Unavailable KARDOONI, HAMLIN MD Unavailable Unavailable KARDOONI, HAMLIN MD Unavailable Unavailable KARDOONI, HAMLIN MD Unavailable Unavailable KARDOONI, HAMLIN MD Unavailable Unavailable KARDOONI, HAMLIN MD Unavailable Unavailable KARDOONI, HAMLIN MD Unavailable Unavailable KARDOONI, HAMLIN MD Unavailable Unavailable KARDOONI, HAMLIN MD Unavailable Unavailable KARDOONI, HAMLIN MD Unavailable Unavailable KARDOONI, HAMLIN MD Unavailable Unavailable KARDOONI, HAMLIN MD Unavailable Unavailable KARDOONI, HAMLIN MD Unavailable Unavailable KARDOONI, HAMLIN MD Unavailable Unavailable KARDOONI, HAMLIN MD Unavailable Unavailable KARDOONI, HAMLIN MD Unavailable Unavailable KARDOONI, HAMLIN MD Unavailable Unavailable KARDOONI, HAMLIN MD Unavailable Unavailable KARDOONI, HAMLIN MD Unavailable Unavailable KARDOONI, HAMLIN MD Unavailable Unavailable KARDOONI, HAMLIN MD Unavailable Unavailable Re-disclosure Warning The records that you are about to access may contain information from federally-assisted alcohol or drug abuse programs. If such information is present, then the following federally mandated warning applies: This information has been disclosed to you from records protected by federal confidentiality rules (42 CFR part 2). The federal rules prohibit you from making any further disclosure of this information unless further disclosure is expressly permitted by the written consent of the person to whom it pertains or as otherwise permitted by 42 CFR part 2. A general authorization for the release of medical or other information is NOT sufficient for this purpose. The Federal rules restrict any use of the information to criminally investigate or prosecute any alcohol or drug abuse patient.The records that you are about to access may contain highly sensitive health information, the redisclosure of which is protected by Article 27-F of the [facility] Public Health law. If you continue you may have access to information: Regarding HIV / AIDS; Provided by facilities licensed or operated by the [facility] Office of Mental Health; or Provided by the [facility] Office for People With Developmental Disabilities. If such information is present, then the following [facility] mandated warning applies: This information has been disclosed to you from confidential records which are protected by state law. State law prohibits you from making any further disclosure of this information without the specific written consent of the person to whom it pertains, or as otherwise permitted by law. Any unauthorized further disclosure in violation of state law may result in a fine or group home sentence or both. A general authorization for the release of medical or other information is NOT sufficient authorization for further disc losure. Allergies and Adverse Reactions Type Description Substance Reaction Status Data Source(s ) Drug Class PENICILLINS PENICILLINS Jj Rubio h Family History Family Member Name Family Member Gender Family Member Status Date o f Status Description Data Source(s) Unknown Unknown Problem [facility] ([facility]) Encounters Encounter Providers Location Date Indications Data Source(s ) Pedro Cates MD: [address] [place] [address], Ph. Attender: Pedro Cates MD [facility] Medical 04/10/2020 12:00:00 AM EST [facility] ([facility]) Pedro Cates MD: [address] [place] [address], Ph. Attender: Pedro Cates MD [facility] Medical 03/27/2020 12:00:00 AM EST [facility] ([facility]) Pedro Cates MD: [address] [place] [address], Ph. Attender: Pedro Cates MD [facility] Medical 03/27/2020 12:00:00 AM EST [facility] ([facility]) Pedro Cates MD: [address] [place] [address], Ph. Attender: Pedro Cates MD [facility] Medical 03/11/2020 12:00:00 AM EST [facility] ([facility]) Pedro Cates MD: [address] [place] [address], Ph. Attender: Pedro Cates MD [facility] Medical 03/11/2020 12:00:00 AM EST [facility] ([facility]) Pedro Cates MD: [address] [place] [address], Ph. Attender: Pedro Cates MD [facility] Medical 03/11/2020 12:00:00 AM EST [facility] ([facility]) Pedro Cates MD: [address] [place] [address], Ph. Attender: Pedro Cates MD [facility] Medical 03/11/2020 12:00:00 AM EST [facility] ([facility]) Psychiatric Diagnostic Evaluation (Non-Medical) Attender: Jac Bello [facility] 02/03/2020 11:00:00 AM EST - 02/03/2020 11:00:00 AM EST [facility] ([facility]) Attender: Frantz Bello 02/03/2020 12:00:00 AM EST [facility] ([facility]) Psychiatric Diagnostic Evaluation (Non-Medical) Attender: Jac Bello [facility] 01/15/2020 02:00:00 AM EST - 01/15/2020 02:00:00 AM EST [facility] ([facility]) Attender: Frantz Ace 01/15/2020 12:00:00 AM EST [facility] ([facility]) Psychiatric Diagnostic Evaluation (Non-Medical) Attender: Jac Bello [facility] 01/14/2020 02:00:00 AM EST - 01/14/2020 02:00:00 AM EST [facility] ([facility]) Attender: Frantz Ace 01/14/2020 12:00:00 AM EST [facility] ([facility]) Attender: ALYX MANZANARES 12/08/2019 11:12:12 AM EDT - 12/08/2019 01:16:00 PM EDT [facility] Attender: ALYX DONG [facility] ED 11/12 11:05:00 AM EDT - 12/08/2019 01:16:00 PM EDT [facility] Patient discharged. Emergency 12/06/2019 04:36:00 PM EDT - 12/06/2019 08:08:00 PM EDT Kidney; [facility] Kidney; hip Patient discharged. Outpatient Attender: Pedro Cates MD 11/07/2019 09:55:01 AM EDT [facility] Outpatient Attender: Pedro Cates MD 09/17/2019 10:29:00 AM EDT [facility] Outpatient Attender: ADRIA HANSON MD 09/17/2019 12:02:02 A M EDT [facility] Outpatient Attender: ADRIA HANSON MD 09/16/2019 11:58:01 A M EDT [facility] Outpatient Attender: ADRIA HANSON MD 09/16/2019 11:53:01 A M EDT [facility] Outpatient Attender: ADRIA HANSON MD 09/16/2019 11:28:01 A M EDT [facility] Outpatient Attender: ADRIA HANSON MD 09/16/2019 11:12:02 A M EDT [facility] Outpatient Attender: ADRIA HANSON MD 09/16/2019 10:41:00 A M [facility] Outpatient Attender: ADRIA HANSON MD 09/10/2019 12:55:01 P M [facility] Outpatient Attender: ADRIA HANSON MD 09/10/2019 08:49:02 A M [facility] Outpatient Attender: ADRIA HANSON MD 09/10/2019 08:49:00 A M [facility] Outpatient Attender: ADRIA HANSON MD 09/09/2019 11:37:01 A M [facility] Outpatient Attender: ADRIA HANSON MD 09/09/2019 09:11:01 A M [facility] Outpatient Referrer: BOUBACAR MANCILLA MD 09/06/2019 05:00:0 0 AM [facility] Outpatient Attender: ADRIA HANSON MD 08/30/2019 09:02:00 A M [facility] Outpatient Attender: ADRIA HANSON MD 08/30/2019 08:54:02 A M [facility] Outpatient Attender: ADRIA HANSON MD 08/30/2019 08:10:00 A M [facility] Outpatient Attender: ADRIA HANSON MD 08/29/2019 03:44:01 P [facility] Outpatient Attender: ADRIA HANSON MD 08/29/2019 02:48:01 P M [facility] Outpatient Attender: ADRIA HANSON MD 08/20/2019 07:31:39 P M [facility] Attender: Pedro Stein 0 09:39:[address] [facility] 05/18/2019 11:23:00 AM EST [facility] Attender: Pedro DONG [facility] ED 0 09:35:00 AM EST 05/18/2019 11:23:00 AM EST [facility] Patient discharged. Outpatient Attender: ADRIA HANSON MD 04/17/2019 02:57:01 P M [facility] 04/08/2019 07:47:55 PM EST - 020 10:50:00 PM EST [facility]08/2019 07:46:00 PM EST - 03/14 10:50:00 PM EST [facility] Patient discharged. [facility] [place] [address] 04/08/2019 12:00:00 AM EST [facility] ([facility]) Outpatient Attender: ADRIA HANSON MD 03/14/2019 02:46:01 P [facility] Outpatient Attender: ADRIA HANSON MD 03/14/2019 02:44:02 P [facility] Outpatient Attender: ADRIA HANSON MD 03/14/2019 11:01:02 A [facility] Outpatient Attender: ADRIA HANSON MD 03/14/2019 10:55:02 A [facility] Outpatient Attender: ADRIA HANSON MD 03/14/2019 10:31:00 A [facility] Outpatient Attender: ADRIA HANSON MD 03/14/2019 10:29:00 A [facility] Outpatient Attender: ADRIA HANSON MD 03/04/2019 01:35:02 P [facility] Outpatient Attender: ADRIA HANSON MD 03/04/2019 01:35:01 P [facility] Medications Medication Brand Name Start Date Product Form Dose Route Admi nistrative Instructions Pharmacy Instructions Status Indications Reaction Description Data Source(s) 20 mg 03/28/2020 12:00:00 AM EST capsule,delayed release (DR/EC) 30 TAKE ONE CAPSULE BY MOUTH EVERY DAY TAKE ONE CAPSULE BY MOUTH EVERY DAY SOLD: 04/08/2020 [facility] 100 mcg/actuation 03/11/2020 12:00:00 AM EST blister with de vice 30 INHALE 1 PUFF BY MOUTH ONCE DAILY INHALE 1 PUFF BY MOUTH ONCE DAILY SOLD: 04/24/2020 [facility] 2.5 mg /3 mL (0.083 %) 03/11/2020 12:00:00 AM EST solu tion for nebulization 150 USE 1 VIAL IN NEBULIZER FOUR TIMES A DAY NEEDED USE 1 VIAL IN NEBULIZER FOUR TIMES A DAY NEEDED SOLD: 03/11/2020 [facility] 100 mcg/actuation 03/11/2020 12:00:00 AM EST blister with de vice 30 INHALE 1 PUFF BY MOUTH ONCE DAILY INHALE 1 PUFF BY MOUTH ONCE DAILY SOLD: 03/11/2020 [facility] benzonatate 100 MG Oral Capsule BENZONATATE 03/07/2020 12:00:00 AM EST capsule 21 TAKE ONE CAPSULE BY MOUTH THREE TIMES A DAY FOR COUGH TAKE ONE CAPSULE BY MOUTH THREE TIMES A DAY FOR COUGH SOLD: 03/07/2020 [facility] 20 mg 03/07/2020 12:00:00 AM EST tablet 8 TAKE 2 TABLETS BY MOUTH EVERY DAY TAKE 2 TABLETS BY MOUTH EVERY DAY SOLD: 03/07/2020 [facility] quetiapine 50 MG Oral Tablet QUETIAPINE FUMARATE 01/13/2020 12:0 0:00 AM EST tablet 7 TAKE ONE TABLET BY MOUTH AT BEDT PACO FOR AGITATION TAKE ONE TABLET BY MOUTH AT BEDTIME FOR AGITATION SOLD: 02/07/2020 [facility] 25 mg 01/13/2020 12:00:00 AM EST tablet 7 TAKE ONE TABLET BY MOUTH EVERY MORNING FOR AGITATION TAKE ONE TABLET BY MOUTH EVERY MORNING FOR AGITATION S OLD: 02/07/2020 [facility] 25 mg 01/13/2020 12:00:00 AM EST tablet 7 TAKE ONE TABLET BY MOUTH EVERY MORNING FOR AGITATION TAKE ONE TABLET BY MOUTH EVERY MORNING FOR AGITATION S OLD: 01/31/2020 [facility] quetiapine 50 MG Oral Tablet QUETIAPINE FUMARATE 01/13/2020 12:0 0:00 AM EST tablet 7 TAKE ONE TABLET BY MOUTH AT BEDT PACO FOR AGITATION TAKE ONE TABLET BY MOUTH AT BEDTIME FOR AGITATION SOLD: 01/13/2020 [facility] 25 mg 01/13/2020 12:00:00 AM EST tablet 7 TAKE ONE TABLET BY MOUTH EVERY MORNING FOR AGITATION TAKE ONE TABLET BY MOUTH EVERY MORNING FOR AGITATION S OLD: 01/13/2020 [facility] quetiapine 50 MG Oral Tablet QUETIAPINE FUMARATE 01/13/2020 12:0 0:00 AM EST tablet 7 TAKE ONE TABLET BY MOUTH AT BEDT PACO FOR AGITATION TAKE ONE TABLET BY MOUTH AT BEDTIME FOR AGITATION SOLD: 01/31/2020 [facility] 50 mg 01/01/2020 12:00:00 AM EDT tablet 14 TAKE ONE TABLET BY MOUTH TWICE A DAY NEEDED FOR ANXIETY/AGITATION TAKE ONE TABLET BY MOUTH TWICE A DAY NEEDED FOR ANXIETY/AGITATION SOLD: 01/31/2020 [facility] 50 mg 01/01/2020 12:00:00 AM EDT tablet 14 TAKE ONE TABLET BY MOUTH TWICE A DAY NEEDED FOR ANXIETY/AGITATION TAKE ONE TABLET BY MOUTH TWICE A DAY NEEDED FOR ANXIETY/AGITATION SOLD: 01/01/2020 [facility] 50 mg 01/01/2020 12:00:00 AM EDT tablet 14 TAKE ONE TABLET BY MOUTH TWICE A DAY NEEDED FOR ANXIETY/AGITATION TAKE ONE TABLET BY MOUTH TWICE A DAY NEEDED FOR ANXIETY/AGITATION SOLD: 02/07/2020 [facility] Ibuprofen 400 MG Oral Tablet ibuprofen (ADVIL,MOTRIN) tablet 800 mg ibuprofen (ADVIL,MOTRIN) tablet 800 mg 12/08/2019 11:45:00 AM EDT 800 mg Oral completed 800 mg, Oral, ONCE, 12/08/19 at 1145, For 1 dose
Maximum dose of Ibuprofen is 2400mg from all sources in 24 hours.
[facility] Medication administered onsite Acetaminophen 325 MG / Oxycodone Hydroch loride 5 MG Oral Tablet oxycodone- acetaminophen (PERCOCET) 5-325 MG per tablet 1 tablet oxycodone-acetaminophen (PERCOCET) 5-325 MG per tablet 1 tablet 12/08/2019 11:45:00 AM EDT 1 {tbl} Oral completed 1 tablet, Oral , ED ONCE, 12/08/19 at 1145, For 1 dose
Maximum dose of acetaminophen is 4000 mg from all sources in 24 hours.
[facility] Medication administered onsite 0.4-0.3 % 11/01/2019 12:00:00 AM EDT drops 15 INSTILL 1 DROP INTO LEFT EYE DAILY NEEDED FOR BURNING, GRITTY SENSATION INSTILL 1 DROP INTO LEFT EYE DAILY NEEDED FOR BURNING, GRITTY SENSATION SOLD: 11/03/2019 [facility] 90 mcg/actuation 08/30/2019 12:00:00 AM EDT HFA aerosol inha ler 8 INHALE 2 PUFFS BY MOUTH EVERY 4 HOURS NEEDED WHEEZING FOR SHORTNESS OF BREATH INHALE 2 PUFFS BY MOUTH EVERY 4 HOURS NEEDED WHEEZING FOR SHORTNESS OF BREATH SOLD: 08/30/2019 [facility] 10 mg 08/30/2019 12:00:00 AM EDT tablet 30 TAKE ONE TABLET BY MOUTH EVERY DAY TAKE ONE TABLET BY MOUTH EVERY DAY SOLD: 09/02/2019 [facility] 90 mcg/actuation 08/30/2019 12:00:00 AM EDT HFA aerosol inha ler 8 INHALE 2 PUFFS BY MOUTH EVERY 4 HOURS NEEDED WHEEZING FOR SHORTNESS OF BREATH INHALE 2 PUFFS BY MOUTH EVERY 4 HOURS NEEDED WHEEZING FOR SHORTNESS OF BREATH SOLD: 03/04/2020 [facility] Fluorouracil 50 MG/ML Topical Cream [Efudex] Efudex 06/2019 12:00:00 AM EDT active [facility] ( [facility] Cimetidine 300 MG Oral Tablet Cimetidine 08/15/2019 12:00:00 AM EDT ORAL active [facility] ([facility] 300 mg 08/15/2019 12:00:00 AM EDT tablet 60 TAKE TWO TABLETS BY MOUTH TWICE A DAY TAKE TWO TABLETS BY MOUTH TWICE A DAY SOLD: 08/16/2019 [facility] 5 % 08/15/2019 12:00:00 AM EDT cream 40 APPLY TO WARTS AT NIGHT, COVER WITH BANDAID APPLY TO WARTS AT NIGHT, COVER WITH BANDAID SOLD: 08/16/2019 [facility] Prednisone 20 MG Oral Tablet predniSONE (DELTASONE) ta blet 60 mg predniSONE (DELTASONE) tablet 60 mg 05/18/2019 10:45:00 AM EST 60 mg Oral completed 60 mg, Oral, ONCE, 05/18/19 at 1045, For 1 dose [facility] Medication administered onsite albuterol (PROVENTIL HFA;VENTOLIN HFA) inhaler 2 puff [id number] 05/18/2019 10:34:07 AM EST 2 {puff} Inhalation completed 2 puff, Inhalation, EVERY 4 HOURS PRN, Wheezing, Shortness of Breath, Starting 05/18/19 at 1034, For 1 dose [facility] Medication administered onsite Albuterol 0.833 MG/ML / Ipratropium Brom tracey 0.167 MG/ML Inhalant Solution ipratropium-albuterol (DUONEB) nebulizer solution 3 mL ipratropium-albuterol (DUONEB) nebulizer solution 3 mL 05/18/2019 09:45:00 AM EST 3 mL Nebulization completed 3 mL, Nebulization, ED ON CE, 05/18/19 at 0945, For 1 dose [facility] Medication administered onsite Prednisone 20 MG Oral Tablet predniSONE (DELTASONE) 20 MG tablet predniSONE (DELTASONE) 20 MG tablet 05/18/2019 12:00:00 AM EST 40 mg Oral completed Take 2 tablets by mouth daily for 4 days . [facility] Take 2 tablets by mouth daily for 4 days . Atropine Sulfate 0.45147 MG/ML / Hyoscya mine Sulfate 0.0207 MG/ML / Phenobarbital 3.24 MG/ML / Scopolamine Hydrobromide 0.0013 MG/ML Oral Solution Bjkzxdzia-Tdrfjw-Hfonpbqp-Scopolamine () elixir 5 mL Ssoeoljsa-Hdxhkw-Leitobdg-Scopolamine () elixir 5 mL 04/08/2019 10:30:00 PM EST 5 mL Oral completed 5 mL, Oral, ONCE, Mon04/08/19 at 2230, For 1 dose
Each 5mL of contains:hyoscyamine sulfate 0.1037 mgatropine sulfate 0.0194 mgscopolamine hydrobromide 0.0065 mgphenobarbital 16.2 mg
[facility] Medication administered onsite Aluminum Hydroxide 40 MG/ML / Magnesium Hydroxide 40 MG/ML / Simethicone 4 MG/ML Oral Suspension aluminum-magnesium hydroxide-simethicone (MAALOX) 200-200-20 MG/5ML suspension 15 mL aluminum-magnesium hydroxide-simethicone (MAALOX) 200-200-20 MG/5ML suspension 15 mL 04/08/2019 10:30:00 PM EST 15 mL Oral completed 15 mL, Oral, ONCE, Mon04/08/19 at 2230, For 1 dose [facility] Medication administered onsite Ondansetron 8 MG Disintegrating Oral Tab let ondansetron (ZOFRAN-ODT) disintegrating tablet 8 mg ondansetron (ZOFRAN-ODT) disintegrating tablet 8 mg 04/08/2019 10:30:00 PM EST 8 mg Oral completed 8 mg, Oral, ONCE, Mon04/08/19 at 2230, For 1 dose
Give to go may use 1 tab every 6 hrs as needed
[facility] Medication administered onsite sodium chloride 0.9 % bolus 500 mL [id number] 04/08/2019 08:15:00 PM EST 500 mL Intravenous completed 500 mL, Intravenous, Administer over 1 Hours, ONCE, Mon04/08/19 at 2015, For 1 dose [facility] Medication administered onsite iohexol (OMNIPAQUE) 50 mL [id number] 04/08/2019 08:00:00 PM EST 50 mL Oral completed 50 mL, Oral, ONCE, Mon04/08/19 at 2000, For 1 dose
Administer one 240 mg/ml (50 ml) bottle in 1000 ml sterile water.Do not add flavorings.Mix immediately prior to use.
[facility] Medication administered onsite ondansetron (ZOFRAN) injection 4 mg [id number] 04/08/2019 08:00:0 0 PM EST 4 mg IV Push completed 4 mg, IV P ush, ONCE, Mon04/08/19 at 1999, For 1 dose
If given IV Push, May be given undiluted and Push over 2 minutes.
[facility] Medication administered onsite morphine injection 2 mg [id number] 04/08/2019 08:00:00 PM EST 2 mg IV Push completed 2 mg, IV Push, ONCE, Mon04/08/19 at 2000, For 1 dose
If given IV Push, May be given undiluted or may dilute with 5mL NS and Push over 5 minutes.
[facility] Medication administered onsite Ondansetron 4 MG Disintegrating Oral Tab let ondansetron (ZOFRAN ODT) 4 MG disintegrating tablet ondansetron (ZOFRAN ODT) 4 MG disintegrating tablet 04/08/2019 12:00:00 AM EST 4 mg Oral completed Take 1 tablet by mouth every 8 (eight) hours as needed for Nausea for up to 7 days. [facility] Take 1 tablet by mouth every 8 (eight) h ours as needed for Nausea for up to 7 days. 40 mg 03/14/2019 12:00:00 AM EST capsule,delayed release (DR/EC) 60 TAKE ONE CAPSULE BY MOUTH EVERY DAY TAKE ONE CAPSULE BY MOUTH EVERY DAY SOLD: 03/15/2019 [facility] 0.12 % 03/14/2019 12:00:00 AM EST mouthwash 473 RINSE WITH 10ML OF SOLUTION BY MOUTH FOR 1 MINUTE THEN SPIT BEFORE BEDTIME RINSE WITH 10ML OF SOLUTION BY MOUTH FOR 1 MINUTE THEN SPIT BEFORE BEDTIME SOLD: 03/14/2019 [facility] Clindamycin 10 MG/ML Topical Solution cl indamycin phosphate 1 % topical solution clindamycin phosphate 1 % topical solution completed clindamycin 10 MG/ML Topical Solution PINKY ([facility]) Omeprazole 40 MG Delayed Release Oral Ca psule omeprazole 40 mg capsule,delayed release TAKE ONE CAPSULE BY MOUTH EVERY DAY omeprazole 40 mg capsule,delayed release TAKE ONE CAPSULE BY MOUTH EVERY DAY completed omeprazole 40 MG Delayed Release Oral Capsule PINKY ([facility]) Cimetidine 300 MG Oral Tablet cimetidine 300 mg tablet TAKE TWO TABLETS BY MOUTH TWICE A DAY cimetidine 300 mg tablet TAKE TWO TABLETS BY MOUTH TWICE A DAY completed cimetidine 300 MG Oral Tablet PINKY ([facility]) benzonatate 100 MG Oral Capsule benzonat ate 100 mg capsule TAKE ONE CAPSULE BY MOUTH THREE TIMES A DAY FOR COUGH benzonatate 100 mg capsule TAKE ONE CAPS ULE BY MOUTH THREE TIMES A DAY FOR COUGH com pleted benzonatate 100 MG Oral Capsule PINKY ([facility]) Azithromycin 250 MG Oral Tablet azithromycin 250 mg ta blet azithromycin 250 mg tablet completed azithromycin 25 0 MG Oral Tablet PURCELL ([facility]) Fluorouracil 50 MG/ML Topical Cream fluo rouracil 5 % topical cream APPLY TO WARTS AT NIGHT COVER WITH BANDAID fluorouracil 5 % topical cream APPLY TO WARTS AT NIGHT COVER WITH BANDAID complete d fluorouracil 50 MG/ML Topical Cream PINKY ([facility]) Omeprazole 40 MG Delayed Release Oral Ca psule omeprazole (PRILOSEC) 40 MG capsule omeprazole (PRILOSEC) 40 MG capsule 40 mg Oral completed Take 40 mg by mouth daily. [facility] Take 40 mg by mouth daily. doxycycline hyclate 100 MG Oral Capsule doxycycline (V IBRAMYCIN) 100 MG capsule doxycycline (VIBRAMYCIN) 100 MG capsule 100 mg Oral completed Take 100 mg by mouth every 12 (twelve) hours. [facility] Take 100 mg by mouth every 12 (twelve) h ours. Prednisone 20 MG Oral Tablet prednisone 20 mg tablet TAKE 2 TABLETS BY MOUTH EVERY DAY prednisone 20 mg tablet TAKE 2 TABLETS BY MOUTH EVERY DAY completed prednisone 20 MG Oral Tablet ATH GUTIERREZ ([facility]) chlorhexidine gluconate 1.2 MG/ML Mouthw tabitha chlorhexidine gluconate 0.12 % mouthwash chlorhexidine gluconate 0.12 % mouthwash completed chlorhexidine gluconate 1.2 MG/ML Mouthwash PURCELL ([facility]) Omeprazole 20 MG Delayed Release Oral Ca psule omeprazole 20 mg capsule,delayed release omeprazole 20 mg capsule,delayed release completed omeprazole 20 MG Delayed Release Oral Capsule PURCELL ([facility]) imiquimod 50 MG/ML Topical Cream imiquim od 5 % topical cream packet APPLY TO AFFECTED AREA S ONCE DAILY NEEDED imiquimod 5 % topical cream packet APPLY TO AFFECTED AREA S ONCE DAILY NEEDED completed imiquimod 50 MG/ML Topical Cream PURCELL ([facility]) Doxycycline Monohydrate 100 MG Oral Caps ule doxycycline monohydrate 100 mg capsule doxycycline monohydrate 100 mg capsule completed doxycycline monohydrate 100 MG Oral Capsule PURCELL ([facility]) Hydroxyzine Hydrochloride 50 MG Oral Tablet hydroxyzin e HCl 50 mg tablet hydroxyzine HCl 50 mg tablet completed hydroxyzine hydrochloride 50 MG Oral Tablet PURCELL ([facility]) Metoclopramide 5 MG Oral Tablet metoclopramide 5 mg ta blet metoclopramide 5 mg tablet completed metoclopramide 5 MG Oral Tablet PURCELL ([facility]) cetirizine hydrochloride 10 MG Oral Tabl et cetirizine 10 mg tablet TAKE ONE TABLET BY MOUTH EVERY DAY cetirizine 10 mg tablet TAKE ONE TABLET BY MOUTH EVERY DAY completed cetirizine hydro chloride 10 MG Oral Tablet PURCELL ([facility]) Tab-A-Carlo 400 mcg tablet [id number] compl eted Tab-A-Carlo 400 mcg tablet PURCELL ([facility]) quetiapine 50 MG Oral Tablet quetiapine 50 mg tablet quetiapine 50 mg tablet completed quetiapine 50 MG Oral Tablet PURCELL ([facility]) quetiapine 25 MG Oral Tablet quetiapine 25 mg tablet quetiapine 25 mg tablet completed quetiapine 25 MG Oral Tablet PURCELL ([facility]) Sulfamethoxazole 800 MG / Trimethoprim 1 60 MG Oral Tablet sulfamethoxazole 800 mg-trimethoprim 160 mg tablet sulfamethoxazole 800 mg-trimethoprim 160 mg tablet completed sulfame thoxazole 800 MG / trimethoprim 160 MG Oral Tablet PINKY ([facility]) Ondansetron 4 MG Disintegrating Oral Tab let ondansetron 4 mg disintegrating tablet ondansetron 4 mg disintegrating tablet completed ondansetron 4 MG Disintegrating Oral Tablet PINKY ([facility]) valacyclovir 1000 MG Oral Tablet valacyc lovir 1 gram tablet TAKE ONE TABLET BY MOUTH TWICE A DAY FOR 3 DAYS valacyclovir 1 gram tablet TAKE ONE TABL ET BY MOUTH TWICE A DAY FOR 3 DAYS completed valacyclovir 1000 MG Oral Tablet PINKY ([facility]) Polyethylene Glycol 400 4 MG/ML / Propyl odessa glycol 3 MG/ML Ophthalmic Solution [Systane] Systane (propylene glycol) 0.4 %-0.3 % eye drops INSTILL 1 DROP INTO LEFT EYE DAILY NEEDED FOR BURNING GRITTY SENSATION Systane (propylene glycol) 0.4 %-0.3 % eye drops INSTILL 1 DROP INTO LEFT EYE DAILY NEEDED FOR BURNING GRITTY SENSATION completed polyethylene glycol 400 4 MG/ML / propylene glycol 3 MG/ML Ophthalmic Solution [Systane] PINKY ([facility]) Insurance Providers Payer name Policy type / Coverage type Policy ID Covered green party ID Covered green party's relationship to shelton Policy [place] Plan Information [facility] MCDO [id number] SP [id number] [facility]([place]) O [id number] S [id number] [facility] MCDO [id number] SP [id number] EMEDNY [id number] SP [id number] [facility] ANGEL [id number] SP [id number] [facility] ANGEL [id number] SP [id number] [facility]AN [facility] [id number] SP [id number] [facility] ANGEL O [id number] Self [id number] [facility] I [id number] Self [id number] Managed Care - [facility] Community Plan P [id number] S [id number] Medicaid S [id number] Managed Care - [facility] Community Plan P [id number] S [id number] EMEDNY [id number] SP [id number] [facility] MEDICAID [id number] Lilia [id number] [facility]) O [id number] S [id number] [facility] XIX [id number] 18 [id number] [facility] XIX UNAVAILABLE UNAVAILABLE MEDICAID -O/P EMERGENCY ROOM [id number] ANSI-Medicaid [id number] ANSI-Medicaid [id number] Managed Care - [facility] Community Plan S [id number] S [id number] ANSI-Medicaid [id number] ANSI-Medicaid [id number] ANSI-Medicaid [id number] ANSI-Medicaid [id number] Managed Care - [facility] P [id number] S [id number] COMMERCIAL GENERIC U [id number] Self [id number] [facility] [id number] und efined [id number] ANSI-Medicaid [id number] ANSI-Medicaid [id number] ANSI-Medicaid [id number] ANSI-Medicaid [id number] ANSI-Medicaid [id number] ANSI-Medicaid [id number] ANSI-Medicaid [id number] ANSI-Medicaid [id number] ANSI-Medicaid [id number] ANSI-Medicaid [id number] [facility] [id number] SP [id number] MEDICAID [id number] SP [id number] ANSI-Medicaid [id number] ANSI-Medicaid [id number] [facility] Health Maintenance Organization (O) [id number] [facility] [id number] ANSI-Medicaid [id number] ANSI-Medicaid [id number] [facility] Health Maintenance Organization (O) [id number] Self [id number] ANSI-Medicaid [id number] ANSI-Medicaid [id number] ANSI-Medicaid [id number] ANSI-Medicaid [id number] ANSI-Medicaid [id number] ANSI-Medicaid [id number] ANSI-Medicaid [id number] ANSI-Medicaid [id number] ANSI-Medicaid [id number] ANSI-Medicaid [id number] [facility] [id number] SP [id number] [facility] [id number] SP [id number] ANSI-Medicaid [id number] ANSI-Medicaid [id number] ANSI-Medicaid [id number] ANSI-Medicaid [id number] [facility] [id number] SP [id number] [facility] Health Maintenance Organization (HMO) [id number] Self [id number] [facility] Health Maintenance Organization (HMO) [id number] Self [id number] [facility] Health Maintenance Organization (HMO) [id number] Self [id number] ANSI-Medicaid [id number] ANSI-Medicaid [id number] COMMERCIAL GENERIC U [id number] Self [id number] ANSI-Medicaid [id number] ANSI-Medicaid [id number] [facility] PLAN [facility] [id number] SP [id number] [facility] [id number] SP [id number] ANSI-Medicaid [id number] MEDICAID M [id number] Self [id number] MEDICAID M [id number] Self [id number] MEDICAID [id number] SP [id number] ANSI-Medicaid [id number] ANSI-Medicaid [id number] [facility] PLAN [facility] [id number] SP [id number] [facility] Hmo Commercial [id number] Self [id number] [facility] Hmo Commercial [id number] Self [id number] [facility] Hmo Commercial [id number] Self [id number] [facility] Hmo Commercial [id number] Self [id number] Managed Care - [facility] P [id number] S [id number] Medicaid S [id number] S [id number] [facility] -O/P [place] 18 [place]OWN [place]) Commercial [id number] Family Dependent [id number] [facility]) Commercial [id number] Self [id number] [facility]) Commercial [id number] Family Dependent [id number] [employer]([facility]) Commercial [id number] Self [id number] [employer] COMM[employer]ITY [employer] MCDO [id number] SP [id number] [employer] COMMUNITY PLAN MCDO [id number] SP [id number] [place]) Commercial [id number] Family Dependent [id number] [employer]([facility]) Commercial [id number] Self [id number] [facility] [id number] SP [id number] [facility] [id number] SP [id number] [place]) Commercial [id number] Family Dependent [id number] [employer]([facility]) Commercial [id number] Self [id number] [place]) Commercial [id number] Family Dependent [id number] [employer]([facility]) Commercial [id number] Self [id number] [place]) Commercial [id number] Family Dependent [id number] [employer]([facility]) Medicaid [id number] Self [id number] [facility] Community Plan Medigap Part B [id number] Self [id number] [place] [id number] [facility] Community Plan Medigap Part B [id number] Self [id number] [place] [id number] [facility] Community Plan Medigap Part B Family Dependent Medicaid [place] Self MEDICA[place] [id number] S [id number] MEDICAID M [id number] S [id number] SELF PAY ONLY [id number] [facility]) O [id number] S [id number] MEDICAID M [id number] Self [id number] Medicaid Dental S [id number] Problems, Conditions, and Diagnoses Code Display Name Description Problem Type Effective Dates Data Source(s) 522119613 Thrombocytopenic disorder Thrombocytopenic Disorder Pr oblem 04/10/2020 12:00:00 AM EST [facility] ([facility]) [id number] Liver function tests abnormal Liver Function Tests Abn ormal Problem 03/27/2020 12:00:00 AM EST [facility] ([facility]) [id number] Gastroesophageal reflux disease without esophagitis Gastroesophageal Reflux Disease without Esophagitis Problem 03/27/2020 12:00:00 AM ES T [facility] ([facility]) [id number] Liver function tests abnormal Liver Function Tests Abn ormal Problem 03/27/2020 12:00:00 AM EST [facility] ([facility]) [id number] Gastroesophageal reflux disease without esophagitis Gastroesophageal Reflux Disease without Esophagitis Problem 03/27/2020 12:00:00 AM ES T [facility] ([facility]) [id number] Acute bronchitis Acute Bronchitis Problem 03/11/2020 12 :00:00 AM EST [facility] ([facility]) [id number] Anxiety Anxiety Problem 03/11/2020 12:00:00 AM ES T [facility] ([facility]) [id number] Acute bronchitis Acute Bronchitis Problem 03/11/2020 12 :00:00 AM EST [facility] ([facility]) [id number] Anxiety Anxiety Problem 03/11/2020 12:00:00 AM ES T [facility] ([facility]) [id number] Acute bronchitis Acute Bronchitis Problem 03/11/2020 12 :00:00 AM EST [facility] ([facility]) [id number] Anxiety Anxiety Problem 03/11/2020 12:00:00 AM ES T [facility] ([facility]) [id number] Acute bronchitis Acute Bronchitis Problem 03/11/2020 12 :00:00 AM EST [facility] ([facility]) [id number] Anxiety Anxiety Problem 03/11/2020 12:00:00 AM ES T [facility] ([facility]) F29 Unspecified psychosis not du e to a 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 02/03/2020 12:00:00 AM EST [facility] ([facility]) L97.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 Non-pressure chronic ulcer of other part of left foot with unspecified severity 09/16/2019 11:10:27 AM EDT [facility] [id number] Allergic rhinitis, unspecified Allergic rhinitis, unsp ecified 08/29/2019 03:43:02 PM EDT [facility] [id number] Mild intermittent asthma, uncomplicated Mild intermittent asthma, uncomplicated 08/29/2019 03:43:02 PM EDT [facility] R10.9 Unspecified abdominal pain Unspecified abdominal pain Diagnosis 12/08/2019 11:05:00 AM EDT [facility] Flank Pain Flank Pain Diagnosis 12/08/2019 11:05:00 AM ED T [facility] left flank pain left flank pain Diagnosis 12/08/2019 11:0 5:00 AM EDT [facility] Kidney; hip Kidney; hip Diagnosis 12/06/2019 04:36:00 PM EDT [facility] J45.21 Mild intermittent asthma with (acute) ex acerbation Mild intermittent asthma with (acute) exacerbation Diagnosis 05/18/2019 09:35:00 AM EST [facility] Cough Cough Diagnosis 05/18/2019 09:35:00 AM T [facility] cough, fever cough, fever Diagnosis 05/18/2019 09:35:00 A M EST [facility] R10.84 Generalized abdominal pain Generalized abdominal pain Diagnosis 04/08/2019 07:46:00 PM EST [facility] Abdominal Cramping Abdominal Cramping Diagnosis 0 07:46:00 PM EST [facility] Complains of abdominal pain after eating chicken at lunch. Complains of abdominal pain after eating chicken at lunch. Diagnosis 04/08/19 20 07:46:00 PM EST [facility] Surgeries/Procedures Procedure Description Date Indications Data Source(s) US, liver 04/03/2020 12:00:00 AM EST [place] DE LA CRUZ ([facility]) Psychiatric Diagnostic Evaluation (Non-Medical) 02/03/2020 12:00:00 AM EST - 02/03/2020 12:00:00 AM EST [facility] ([facility]) Psychiatric Diagnostic Evaluation (Non-Medical) 2019 12:00:00 AM EST [facility] ([facility]) Psychiatric Diagnostic Evaluation (Non-Medical) 01/15/2020 12:00:00 AM EST - 01/15/2020 12:00:00 AM EST [facility] ([facility]) Psychiatric Diagnostic Evaluation (Non-Medical) 2019 12:00:00 AM EST [facility] ([facility]) Psychiatric Diagnostic Evaluation (Non-Medical) 01/14/2020 12:00:00 AM EST - 01/14/2020 12:00:00 AM EST [facility] ([facility]) Psychiatric Diagnostic Evaluation (Non-Medical) 2019 12:00:00 AM EST [facility] ([facility]) CT ABDOMEN & PELVIS W/O CONTRAST MATERIAL CT ABDOMEN PELVIS WO IV CONTRAST STAT 12/08/2019 11:40 AM EDT 12/08/2019 11:40:42 AM EDT [facility] URNLS DIP STICK/TABLET REAGENT AUTO MICROSCOPY URINALYSIS STAT 12/08/2019 11:18 AM EDT 12/08/2019 11:18:00 AM EDT [facility] DESTRUCTION BENIGN LESIONS UP TO 14 08/30/2019 12:00:0 0 AM EDT [facility] ([facility] DESTRUCTION BENIGN LESIONS UP TO 14 08/15/2019 12:00:0 0 AM EDT [facility] ([facility] XR CHEST 2 VIEWS FRONT PA AND LAT XR CHEST 2 VIEWS FRONT PA AND LAT STAT 05/18/2019 10:07 AM EST 05/18/2019 03:07:25 PM EST [facility] IAADIADOO INFLUENZA INFLUENZA ANTIGEN STAT 05/18/2019 9:[address] 05/18/2019 02:49:[address] [facility] ABDOEN & PELVIS W/CONTRAST MATERIAL CT ABDOMEN PELVIS W IV C ONTRAST STAT 04/08/2019 10:01 PM EST 04/09/2019 03:01:06 AM EST [facility] DESTRUCTION BENIGN LESIONS UP TO 14 03/15/2019 12:00:0 0 AM EST [facility] ([facility] Results ID Date Data Source [id number] 03/27/2020 11:50:00 AM EST [facility] ([facility]) Name Value Range Interpretation Code Description Data Amy rce(s) Supporting Document(s) glucose, fasting 89 mg/dL 70-100 normal Glucose, Fasting AT [facility] ([facility]) glomerular filtration rate > 60.0 >60 normal Glomerula r Filtration Rate [facility] ([facility]) creatinine for GFR 0.90 mg/dL 0.70-1.30 normal Creatinine for GF R [facility] ([facility]) blood urea nitrogen 11 mg/dL 7-18 normal Blood Urea Nitro gen [facility] ([facility]) sodium level 140 mEq/L 136-145 normal Sodium Level PINK[facility] ([facility]) chloride level 107 mEq/L 98-107 normal Chloride Level [facility] ([facility]) carbon dioxide level 26 mEq/L 21-32 normal Carbon Dioxide Level [facility] ([facility]) potassium serum 3.7 mEq/L 3.5-5.1 normal Potassium Serum ATHE ([facility]) calcium level 8.8 mg/dL 8.5-10.1 normal Calcium Level [facility] ( [facility]) AST/SGOT 15 U/L 7-37 normal AST/SGOT [facility] ([facility]) anion gap 7 mEq/L 8-16 Below low normal Anion Gap [facility] ( [facility]) ALT/SGPT 22 U/L 12-78 normal ALT/SGPT [facility] ([facility]) alkaline phosphatase 48 U/L 45-117 normal Alkaline Phosph atase [facility] ([facility]) bilirubin,total 0.7 mg/dL 0.2-1.0 normal Bilirubin,total ATHE ([facility]) total protein 7.1 gm/dL 6.4-8.2 normal Total Protein [facility] ( [facility]) albumin/globulin ratio normal Albumin/globu maría Ratio [facility] ([facility]) albumin 4.5 gm/dL 3.2-5.2 normal Albumin [facility] ([facility]) ID Date Data Source [id number] 03/27/2020 11:50:00 AM EST [facility] ([facility]) Name Value Range Interpretation Code Description Data Amy rce(s) Supporting Document(s) red blood count 5.29 10 4.30-6.10 normal Red Blood Count [facility] ([facility]) white blood count 6.2 10 4.0-10.0 normal White Blood Count [facility] ([facility]) hemoglobin 14.5 g/dL 13.5-17.5 normal Hemoglobin [facility] ([facility]) hematocrit 41.9 % 42.0-52.0 Below low normal Hematocrit [facility] ( [facility]) mean corpuscular volume 79.2 fL 80.0-96.0 Below low normal Mean Corpuscular Volume [facility] ([facility]) mean corpuscular hemoglobin 27.4 pg 27.0-33.0 normal Mean Corpuscular Hemoglobin [facility] ([facility]) mean corpuscular HGB conc 34.6 g/dL 32.0-36.5 normal Mean Corpu scular HGB Conc [facility] ([facility]) platelet count, automated 135 10 150-450 Below low va l Platelet Count, Automated [facility] ([facility]) red cell distribution width 13.6 % 11.5-14.5 normal Red Cell Distribution Width [facility] ([facility]) neutrophils % 70.7 % 36.0-66.0 Above high normal Neutrophils % A [facility] ([facility]) lymph % 19.8 % 24.0-44.0 Below low normal Lymph % [facility] ( [facility]) mono % 4.4 % 0.0-5.0 normal [place] % [facility] ([facility]) eos % 3.4 % 0.0-3.0 Above high normal Eos % [facility] ([facility]) immature granulocyte % 1.1 % 0-3.0 normal Immature Gran ulocyte % [facility] ([facility]) baso % 0.6 % 0.0-1.0 normal Baso % [facility] ([facility]) nucleated red blood cell % 0.0 % 0-0 normal Nucleated Red Blood Cell % [facility] ([facility]) lymph # 1.2 10 1.5-5.0 Below low normal Lymph # [facility] ( [facility]) neutrophils # 4.4 10 1.5-8.5 normal Neutrophils # [facility] ( [facility]) mono # 0.3 10 0.0-0.8 normal [place] # [facility] ([facility]) eos # 0.2 10 0.0-0.5 normal Eos # [facility] ([facility]) baso # 0.0 10 0.0-0.2 normal Baso # [facility] ([facility]) ID Date Data Source [id number] 03/11/2020 11:00:00 AM EST [facility] ([facility]) Name Value Range Interpretation Code Description Data Amy rce(s) Supporting Document(s) white blood count 12.0 10 4.0-10.0 Above high normal White Blood Count [facility] ([facility]) hematocrit 47.9 % 42.0-52.0 normal Hematocrit [facility] ([facility]) hemoglobin 16.6 g/dL 13.5-17.5 normal Hemoglobin [facility] ([facility]) red blood count 6.17 10 4.30-6.10 Above high normal Red Blood Cou nt [facility] ([facility]) mean corpuscular volume 77.6 fL 80.0-96.0 Below low normal Mean Corpuscular Volume [facility] ([facility]) mean corpuscular hemoglobin 26.9 pg 27.0-33.0 Below low nor mal Mean Corpuscular Hemoglobin [facility] ([facility]) mean corpuscular HGB conc 34.7 g/dL 32.0-36.5 normal Mean Corpu scular HGB Conc [facility] ([facility]) red cell distribution width 13.2 % 11.5-14.5 normal Red Cell Distribution Width [facility] ([facility]) platelet count, automated 141 10 150-450 Below low va l Platelet Count, Automated [place] ([facility]) neutrophils % 92.6 % 36.0-66.0 Above high normal Neutrophils % A [facility] ([facility]) lymph % 5.8 % 24.0-44.0 Below low normal Lymph % [facility] ( [facility]) mono % 0.6 % 0.0-5.0 normal [place] % [facility] ([facility]) eos % 0.1 % 0.0-3.0 normal Eos % [facility] ([facility]) baso % 0.2 % 0.0-1.0 normal Baso % [facility] ([facility]) immature granulocyte % 0.7 % 0-3.0 normal Immature Gran ulocyte % [facility] ([facility]) nucleated red blood cell % 0.0 % 0-0 normal Nucleated Red Blood Cell % [facility] ([facility]) mono # 0.1 10 0.0-0.8 normal [place] # [facility] ([facility]) baso # 0.0 10 0.0-0.2 normal Baso # [facility] ([facility]) lymph # 0.7 10 1.5-5.0 Below low normal Lymph # [facility] ( [facility]) neutrophils # 11.1 10 1.5-8.5 Above high normal Neutrophils # A [facility] ([facility]) eos # 0.0 10 0.0-0.5 normal Eos # [facility] ([facility]) ID Date Data Source [id number] 03/11/2020 11:00:00 AM EST [facility] ([facility]) Name Value Range Interpretation Code Description Data Amy rce(s) Supporting Document(s) glucose, fasting 137 mg/dL 70-100 Above high normal Glucose, Fas ting [facility] ([facility]) blood urea nitrogen 16 mg/dL 7-18 normal Blood Urea Nitro gen [facility] ([facility]) glomerular filtration rate > 60.0 >60 normal Glomerula r Filtration Rate P[facility] ([facility]) creatinine for GFR 0.99 mg/dL 0.70-1.30 normal Creatinine for GF R [facility] ([facility]) sodium level 137 mEq/L 136-145 normal Sodium Level [facility] ([facility]) potassium serum 4.1 mEq/L 3.5-5.1 normal Potassium Serum ATHE NA ([facility]) carbon dioxide level 22 mEq/L 21-32 normal Carbon Dioxide Level [facility] ([facility]) chloride level 107 mEq/L 98-107 normal Chloride Level [facility] ([facility]) anion gap 8 mEq/L 8-16 normal Anion Gap [facility] ([facility]) calcium level 9.6 mg/dL 8.5-10.1 normal Calcium Level [facility] ( [facility]) ALT/SGPT 15 U/L 12-78 normal ALT/SGPT [facility] ([facility]) AST/SGOT 11 U/L 7-37 normal AST/SGOT [facility] ([facility]) total protein 8.4 gm/dL 6.4-8.2 Above high normal Total Protein A THENA ([facility]) alkaline phosphatase 53 U/L 45-117 normal Alkaline Phosph atase [facility] ([facility]) bilirubin,total 1.2 mg/dL 0.2-1.0 Above high normal Bilirubin,tot al [facility] ([facility]) albumin/globulin ratio normal Albumin/globu maría Ratio [facility] ([facility]) albumin 5.4 gm/dL 3.2-5.2 Above high normal Albumin [facility] ([facility]) ID Date Data Source [id number] 03/11/2020 11:00:00 AM EST [facility] ([facility]) Name Value Range Interpretation Code Description Data Amy rce(s) Supporting Document(s) hemoglobin 16.6 g/dL 13.5-17.5 normal Hemoglobin [facility] ([facility]) red blood count 6.17 10 4.30-6.10 Above high normal Red Blood Cou nt [facility] ([facility]) white blood count 12.0 10 4.0-10.0 Above high normal White Blood Count [facility] ([facility]) hematocrit 47.9 % 42.0-52.0 [facility] mean corpuscular volume 77.6 fL 80.0-96.0 Below low normal Mean Corpuscular Volume [facility] ([facility]) red cell distribution width 13.2 % 11.5-14.5 normal Red Cell Distribution Width [facility] ([facility]) mean corpuscular HGB conc 34.7 g/dL 32.0-36.5 normal Mean Corpu scular HGB Conc [facility] ([facility]) mean corpuscular hemoglobin 26.9 pg 27.0-33.0 Below low nor mal Mean Corpuscular Hemoglobin [facility] ([facility]) mono % 0.6 % 0.0-5.0 normal [place] % [facility] ([facility]) lymph % 5.8 % 24.0-44.0 Below low normal Lymph % [facility] ( [facility]) neutrophils % 92.6 % 36.0-66.0 Above high normal Neutrophils % A [facility] ([facility]) platelet count, automated 141 10 150-450 Below low va l Platelet Count, Automated [facility] ([facility]) baso % 0.2 % 0.0-1.0 normal Baso % [facility] ([facility]) nucleated red blood cell % 0.0 % 0-0 normal Nucleated Red Blood Cell % [facility] ([facility]) neutrophils # 11.1 10 1.5-8.5 Above high normal Neutrophils # [facility] eos % 0.1 % 0.0-3.0 normal Eos % [facility] ([facility]) immature granulocyte % 0.7 % 0-3.0 normal Immature Gran ulocyte % [facility] ([facility]) mono # 0.1 10 0.0-0.8 normal [place] # [facility] ([facility]) lymph # 0.7 10 1.5-5.0 Below low normal Lymph # [facility] ( [facility]) eos # 0.0 10 0.0-0.5 normal Eos # [facility] ([facility]) baso # 0.0 10 0.0-0.2 normal Baso # [facility] ([facility]) ID Date Data Source [id number] 03/11/2020 11:00:00 AM EST [facility] ([facility]) Name Value Range Interpretation Code Description Data Amy rce(s) Supporting Document(s) creatinine for GFR 0.99 mg/dL 0.70-1.30 normal Creatinine for GF R [facility] ([facility]) glucose, fasting 137 mg/dL 70-100 Above high normal Glucose, Fas ting [facility] ([facility]) blood urea nitrogen 16 mg/dL 7-18 normal Blood Urea Nitro gen [facility] ([facility]) sodium level 137 mEq/L 136-145 normal Sodium Level [facility] ([facility]) potassium serum 4.1 mEq/L 3.5-5.1 normal Potassium Serum ATH NA ([facility]) glomerular filtration rate > 60.0 >60 normal Glomerula r Filtration Rate [facility] ([facility]) calcium level 9.6 mg/dL 8.5-10.1 normal Calcium Level [facility] ( [facility]) chloride level 107 mEq/L 98-107 normal Chloride Level [facility] ([facility]) carbon dioxide level 22 mEq/L 21-32 normal Carbon Dioxide Level [facility] ([facility]) anion gap 8 mEq/L 8-16 normal Anion Gap [facility] ([facility]) AST/SGOT 11 U/L 7-37 normal AST/SGOT [facility] ([facility]) bilirubin,total 1.2 mg/dL 0.2-1.0 Above high normal Bilirubin,tot al [facility] ([facility]) alkaline phosphatase 53 U/L 45-117 normal Alkaline Phosph atase [facility] ([facility]) ALT/SGPT 15 U/L 12-78 normal ALT/SGPT [facility] ([facility]) albumin/globulin ratio normal Albumin/globu maría Ratio [facility] ([facility]) total protein 8.4 gm/dL 6.4-8.2 Above high normal Total Protein A THE[facility] ([facility]) albumin 5.4 gm/dL 3.2-5.2 Above high normal Albumin [facility] ([facility]) ID Date Data Source [id number] 03/10/2020 09:00:00 AM EST [facility] Name Value Range Interpretation Code Description Data Amy rce(s) Supporting Document(s) SARS-CoV-2 (COVID 19) [facility] This lab was ordered by [facility] a nd reported by [facility]. ID Date Data Source [id number] 03/06/2020 07:48:00 AM EST [facility] Name Value Range Interpretation Code Description Data Amy rce(s) Supporting Document(s) SARS coronavirus 2 RNA [facility] This lab was ordered by [facility] and reported by [facility]. 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 male patient presenting to the ED for left flankpain that started yesterday. No fevers, No N/V, no abd pain.PCP: Ran Collins MDNo [facility] for [facility].REVIEW OF SYSTEMSReview of SystemsConstitutional: Negative for chills, diaphoresis, fever and mal aise/fatigue.HENT: Negative for congestion, sinus pain and sore throat.Respiratory: Negative for cough, hemoptysis, sputum production, shortness ofbreath, wheezing and stridor.Cardiovascular: Negative for chest pain.Gastrointestinal: Negative for nausea and vomiting.Genitourinary: Positive for flank pain. 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 No pertinent surgical history.No family history on file.Social HistorySocioeconomic History Marital status: Single Spouse name: Not on file Number of children: Not on file Years of education: Not on file Highest education level: Not on fileOccupational History Not on fileSocial Needs Financial resource strain: Not on file Food insecurity Worry: Not on file Inability: Not on file Transportation needs Medical: Not on file Non-medical: Not on fileTobacco Use Smoking status: Never Smoker Smokeless tobacco: Never UsedSubstance and Sexual Activity Alcohol use: Never Frequency: Never Drug use: Never Sexual activity: Not on fileLifestyle Physical activity Days per week: Not on file Minutes per session: Not on file Stress: Not on fileRelationships Social connections Talks on phone: Not on file Gets together: Not on file Attends anabaptism service: Not on file Active member of club or organization: Not on file Attends meetings of clubs or organizations: Not on file Relationship status: Not on file Intimate partner violence Fear of current or ex partner: Not on file Emotionally abused: Not on file Physically abused: Not on file Forced sexual activity: Not on fileOther Topics Concern Not on fileSocial History Narrative Not on fileThe patient's home medications have been reviewed.Previous Medications ALBUTEROL (PROVENTIL HFA;VENTOLIN HFA) 108 (90 BASE) MCG/ACT INHALER Inhale2 puffs into the lungs every 6 (six) hours as needed for Wheezing.The patient's allergies have been reviewed.AllergiesAllergen Reactions PenicillinsPHYSICAL EXAMConstitutional: Well developed, well nourished. Awake & alert. No acutedistress.Head: Atraumatic. Normocephalic.Eyes: Conjunctivae are pink. Sclerae are anicteric. PERRL. EOMI.ENT: Airway is patent. Mucous membranes are moist. Oropharynx is clear andsymmetric, without erythema or exudates. TMs are unremarkable.Neck: No appreciable lymphadenopathy. Neck is supple without meningismus.Cardiovascular: Regular rate. Regular rhythm. No murmurs, rubs, or gallops.Distal pulses are equal and 2+.Pulmonary/Chest: No evidence of respiratory distress. Patient is speaking infull sentences without accessory muscle usage. Clear to auscultationbilaterally. No wheezing, rales or rhonchi. Chest is non-tender.Abdominal: Soft and non-distended. There is no tenderness. No rebound, guarding,or rigidity. Normal bowel sounds. No organomegaly. No pulsatile mass.Back:left flank ttp.Extremities: Full range of motion in all extremities. No cyanosis. No peripheraledema.Skin: Skin is warm and dry. No diaphoresis. No rashes.Neurological: Alert, awake, and appropriate. No facial asymmetry. Normalspeech. No acute focal neurological deficits are appreciated. Normal gait.Psychiatric: Good eye contact. Normal affect and behavior.PROGRESS NOTESTime: 11:25Initial history and physical performed as doc umented above. Will .Time: 1206On re-exam, ROSSI AGGARWAL.ED ORDERSOrders Placed This EncounterProcedures CT Abdomen Pelvis Without IV Contrast UrinalysisMedicationsoxycodone-acetaminophen (PERCOCET) 5-325 MG per tablet 1 tablet (1 tablet OralGiven 12/08/19 1120)ibuprofen (ADVIL,MOTRIN) tablet 800 mg (800 mg Oral Given 12/08/19 1120)LABORATORY RESULTSResults for orders placed or performed during the hospital encounter of 12/08/19UrinalysisResult Value Ref Range Color, UA Yellow Yellow Clarity, UA Clear Clear Specific [place], UA 1.025 1.005 - 1.025 pH, UA 6.5 5.0 - 7.5 Protein, UA Negative Negative Glucose, UA Negative Negative Ketones, UA 1+ (A) Negative Bilirubin, UA 1+ (A) Negative Blood, UA Negative Negative Nitrite, UA Negative Negative Urobilinogen, UA 0.2 <=1.9 Eu/dL Leukocytes, UA Negative Negative Squamous Epithelial Few (A) None Seen, Rare /HPF Bacteria Rare (A) None Seen /HPF Mucous Few (A) None Seen /HPFMEDICAL DECISION MAKINGVital Signs: Reviewed the patient s vital signs.Vitals: 12/08/19 1112BP: (!) 135/94Pulse: 90Resp: 20Temp: 99 F (37.2 C)TempSrc: OralSpO2: 98%Weight: (!) 92 lb (41.7 kg)Height: 5' 2" (1.575 m)PainSc: 8Nursing Notes: Reviewed and utilized the nursing notes.Old Medical Records: The patient s available past medical records and pastencounters were reviewed.Laboratory Studies: Ordered and independently interpreted laboratory tests, seeRoyce g Studies: Imaging studies were ordered. Interpretations include:CT Abdomen Pelvis Without IV ContrastFinal ResultIMPRESSION:No urinary tract stones. No hydronephrosis. No acute pathology identified.Left pelvic kidneyagain noted.Note: This report was dictated utilizing Fluency voice recognition computerprogram. Missing smallwords are common, as are minor grammatical and syntax errors. Feel free tocontact me if anythingrequires clarification. Arpit Hill MD.Additional MDM and Provider Notes: Patient is hemodynamically stable and readyfor discharge home. All questions have been answered concerning today's ERencounter. I have discussed the importance of follow up and red flags/reasonsfor ER return. Specific follow up information including phone number(s) andaddresses have been given to patient at discharge.COUNSELINGCounseling: The emergency provider has spoken with the patient and discussedtoday s findings, in addition to providing specific details for the plan ofcare. Questions are answered and there is agreement with the plan. Counselingwas provided regarding the diagnosis and prognosis.Discussed the specific conditions for return, as well as the importance offollow-up.Modified Medications No medications on fileDiscontinued Medications DOXYCYCLINE (VIBRAMYCIN) 100 MG CAPSULE Take 100 mg by mouth every 12(twelve) hours. OMEPRAZOLE (PRILOSEC) 40 MG CAPSULE Take 40 mg by mouth daily.New Prescriptions No medications on fileIMPRESSION AND DISPOSITIONCLINICAL IMPRESSIONImpression:1. Left flank painDISPOSITIONDisposition: Discharge^DISCHARGE^^0Patient condition: Alyx Gardner, DO12/08/19 1206 ID Date Data Source [id number] 12/08/2019 11:52:19 AM [facility] ORIGINAL: Emilee Dec 08, 2019 11:52 AM by Arpit Block MDEXAMINATION:CT ABDOMEN PELVIS WO IV CONTRASTHISTORY:Left flank painCOMPARISON:04/08/2019 contrast- enhanced CTTECHNIQUE:Following renal stone protocol, CT of the abdomen and pelvis is performed without intravenous ororal contrast. Sagittal and coronal reformatting is performed.FINDINGS:Lung bases: There is no pleural or pericardial effusion.Gallbladder: Unremarkable but better evaluated with ultrasound if clinically indicated.Liver: Unremarkable in appearance for a non- contrast study.Spleen: Unremarkable in appearance for a non-contrast stud yPancreas: Unremarkable in appearance for a non-contrast studyAdrenals: Unremarkable in appearance for a non-contrast studyGastrointestinal tract: There is a large amount of fluid in the stomach. Evaluation of the bowelis limited on this noncontrast exam and also limited by paucity of intra-abdominal fat. There isno bowel dilatation to suggest obstruction. 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 No acute bone pathology.Adenopathy: None detected on this non-contrast study.Pelvic organs:Urinary tract findings:No solid renal mass is detected on this non- contrast study.The patient is again noted to have a left pelvic kidney. There are no urinary tract stones. Thereis no hydronephrosis or perinephric stranding. The seminal vesicles and prostate are grosslyunremarkable. The urinary bladder is almost empty and could not be accurately evaluated. Butthere is no stone in the bladder.IMPRESSION:No urinary tract stones. No hydronephrosis. No acute pathology identified. Left pelvic kidneyagain noted.Note: This report was dictated utilizing VisualCV voice recognition computer program. Missing smallwords are common, as are minor grammatical and syntax errors. Feel free to contact me if anythingrequires clarification. Arpit Hill MD. Name Value Range Interpretation Code Description Data Amy rce(s) Supporting Document(s) ID Date Data Source [id number] 12/08/2019 11:30:00 AM EDT [facility] Name Value Range Interpretation Code Description Data [facility] rce(s) Supporting Document(s) COLOR Yellow Yellow [facility] CLARITY Clear Clear [facility] SPECIFIC GRAVITY UA 1.025 1.005-1.025 [facility] ealt PH UA 6.5 5.0-7.5 [facility] PROTEIN UA Negative Negative [facility] GLUCOSE UA Negative Negative [facility] KETONES URINE 1+ Negative Abnormal (applies to non-numeric results) [facility] BILIRUBIN UA 1+ Negative Abnormal (applies to non-numeric r esults) [facility] BLOOD UA Negative Negative [facility] NITRITE UA Negative Negative [facility] UROBILINOGEN UA 0.2 Eu/dL <=1.9 [facility] LEUKOCYTE ESTERASE UA Negative Negative [facility]alth SQUAMOUS EPITHELIAL UA Few /HPF None Seen, Rare Abnormal (applies to non-numeric results) [facility] This is a corrected result for Squamous Epithelial. Previous result was <null> on 12/08/2019 at 1125 EDT BACTERIA UA Rare /HPF None Seen Abnormal (applies to non-numeric re sults) [facility] This is a corrected result for Bacteria. Previous result was <null> on 12/08/2019 at 1125 EDT MUCOUS UA Few /HPF None Seen Abnormal (applies to non-numeric res ults) [facility] This is a corrected result for Mucous. 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 Patientwith history of TAR syndrome. Patient states it feels like his kidney ispushing forward and is very enflamed. Patient reports feeling constipated andnot eating well, has lost 10lbs. ID Date Data Source [id number] 09/16/2019 10:43:38 AM EDT [facility] Measurements & CalculationsHeight: 62 inches 157.48 cm Weight: 96.8 pounds 44 kg Body Mass Index (BMI): 17.77BMI Interpretation: UnderweightBody Surface Area (BSA): 1.41Weight Management Education Done (Nutrition/Physical Activity)Vital SignsTemperature: 97.7FPulse Rate: 112 beats/minuteRespiratory Rate: 18 respirations/minuteBlood Pressure: 127/77 Vital Signs performed by: Michelle Stoner MA, September 16, 2019 10:47 AMInitial Intake Information From: patientRoom #: 13Infectious Disease / Travel ScreeningRecent travel for you or any close contacts? NoHave you had any close contact with anyone diagnosed with or under investigation for COVID-19 (coronavirus)? NoFever? NoRespiratory symptoms: cough, cold, congestion, shortness of breath, difficulty breathing? NoLoss of smell? NoLoss of taste? NoSmoking, Tobacco, Vaping or Smoke Exposure StatusSmoke Status: never smokerTobacco Use: NoDo you vape? NoHealthcare HistorySince your last office visit...Have you been admitted to the hospital? NoHave you been to an emergency room (ER) or urgent care clinic? No - [facility] left side chest pain, coughEmergency room (ER) or urgent care date reported today: 08/27/2019Have you seen another healthcare provider? Yes - dr Bhagat you seen a dentist? Yes - ncfhdIntake performed by: Michelle Stoner MA, September 16, 2019 10:46 AMRate Your HealthIn general, would you say your health is? PoorPain AssessmentAre you currently having any pain which... You would like your provider to address? No Affects your activity level? NoDepres srinivasan Screening - PHQ-2Over the last two weeks, have you... Had little interest or pleasure in doing things? Not at all Been feeling down, depressed, or hopeless? Not at all PHQ-2 Score: 0Anxiety Screening - NICOLLE-2Over the last two weeks, have you been... Feeling nervous, anxious, or on edge? Not at all Unable to stop or control worrying? Not at all NICOLLE-2 Score: 0Screening, Brief Intervention, & Referral to Treatment (SBIRT)Pre-Screening Questions How many times have you have 5 or more drinks in a day? 0How many times have you used an illegal drug or used a prescription medication for a non- medical reason? 0Performed by: Michelle Stoner MA, September 16, 2019 10:46 AMPatient History Medical History:AsthmaHypertensionIBStension headachesdiplopiainsomniaisolated seizureship dysplasiaSurgical History:right armmetal plate- right armFamily History:Diabetes (Maternal Grandmother)Heart disease (Paternal Grandfather)Hypertension (Maternal Grandmother, Maternal Grandfather, Paternal Grandmother, Paternal Grandfather)Social/Personal History:Smoking History:Patient has never smoked. Chief Complaintlab results History of Present Illness (HPI)His platelet count is low at 113. Labs otherwise unactionable.Born with TARS syndrome. Has been to see the [facility] on [address]. Last contact with them 2 months ago and they would like him to follow up with a hospital in [place].Issues for along time with easy bruising and sores that won't heal on his arms and legs. For months to years. Painful. No better and no worse with time.Problems with abdominal pain for a long time. Has seen Dr. Ruiz in the past and it has been a while since they have seen him. I encrouaged him to make an appointment with them for follow up because this pain ssems to be persistent. He had a colonoscopy in the past and they put him under general anesthesia. He is upset about this because ht has read that someone with TARS Syndrone should never be put under general anesthesia.Chronic bilateral rib pain. No better and no worse with time. Some relief with medical marijuana.HPI performed by: Pedro Cates MD, September 16, 2019 11:48 AMTransitions of Care InboundProblem ReviewProblem List was reviewed and/or updated during this visit.Medication Reconciliation & ReviewMedication List was reviewed and/or updated during this visit, including review of any jniw-sxi-ouipzlc medications, herbal therapies, and/or supplements.Allergy ReviewAllergy List was reviewed and/or updated during this visit.Adult Preventive CareProvider Calculated and Reviewed all Clinical Protocols for patient today. Labs/Meds/Other Counseling-Nutrition and Physical Activity:BMI Interpretation: Underweight (09/16/2019) Counseling: Done (09/16/2019) Physical Activity: Done (09/16/2019)Physical ExamGeneral Appearance: well nourished, well hydrated, no acute distressRespiratory, Auscultation: clear to auscultation bilaterally; no rales, rhonchi, or wheezesRespiratory, Effort: no intercostal retractions or use of accessory musclesCardiovascular, Auscultation: S1, S2 audible; no murmur, rub, or gallop; RRRGait & Station: normalSkin, Inspection: Multiple small ulcerated areas left hand, both legs and most prominentlly on left ankle. Scabbe d. Clean and dry with minial surrounding erythema.Orientation: oriented to time, place, and personMood & Affect: no depression, anxiety, or agitationJudgment & Insight: intactCare Management Plan Transitions of CareInboundRate Your HealthIn general, would you say your health is? 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 He has a rare and complicated genetic disorder which is well beyond my scope of practice so I think this is important.Gastro- esophageal reflux disease without esophagitis (NRL26-E66.9) Assessment: Instructions: Chronic and persistent abdominal pain.Encouraged to follow up with Dr. Ruiz for this.Patient Instructions/Care Plan: Non-pressure chronic ulcer of other part of left foot with unspecified severity: Refer to Wound Clinic.Radial aplasia-thrombocytopenia syndrome: Refe to heme/onc for low platelets.I would also like him to follow up with the [facility] and whoever they recommend for follow up of this. He has a rare and complicated genetic disorder which is well beyond my scope of practice so I think this is important.Gastro-esophageal reflux disease without esophagitis: Chronic and persistent abdominal pain.Encouraged to follow up with Dr. Ruiz for this. Plan developed in collaboration with patient and/or familyMedications:ALBUTEROL SULFATE HFA 108 (90 BASE) MCG/ACT INHALATION AEROSOL SOLUTIONCETIRIZINE HCL 10 MG ORAL TABLETCIMETIDINE 300 MG ORAL TABLETDAILY VALUE MULTIVITAMIN ORAL TABLETALBUTEROL SULFATE (2.5 MG/3ML) 0.083% INHALATION NEBULIZATION SOLUTIONAllergies:PENICILLIN (Moderate)AMOXICILLIN (Moderate)Orders:Hematology Consult [CPT-88345] Other Referral [[id number]] Adult - Ofc Vst, EST, Level III [CPT-74473] Name Value Range Interpretation Code Description Data Amy rce(s) Supporting Document(s) ID Date Data Source [id number] 09/09/2019 11:54:58 AM EDT [facility] Labs In-House Blood TestsDate/Time Colle cted: September 09, 2019 11:55 AMDate/Time Received: September 09, 2019 11:55 AMTest Result Reference Range Normal ValueComments: collected blood from patient left ac , patient tolerated well. Erica Styles [employer]ES REPRESENTATIVE [employer], September 09, 2019 11:55 AMAssessment & Plan Orders:[id number] Vst-Est Level I [CPT-94554] 92023 - Venipuncture [CPT-58828] Name Value Range Interpretation Code Description Data Amy rce(s) Supporting Document(s) ID Date Data Source [id number] 09/09/2019 11:36:00 AM EDT [facility] Name Value Range Interpretation Code Description Data Amy rce(s) Supporting Document(s) HCT 41.9 % 42.0-52.0 L [facility] HGB 14.6 g/dL 13.5-17.5 [facility] MCH 34.8 G/DL pg 32.0-36.5 N [facility] MCHC 27.3 PG % 27.0-33.0 [facility] PLATELETS 133 10 10*3/mm3 150-450 L [facility] RBC 5.35 10 10*6/mm3 4.30-6.10 [facility] RDW 13.5 % 11.5-14.5 [facility] WBC TOTAL 5.3 4.0-10.0 N [facility] ID Date Data Source [id number] 09/09/2019 11:36:00 AM EDT [facility] Name Value Range Interpretation Code Description Data Amy rce(s) Supporting Document(s) BG FASTING 93 mg/dL 70-100 N [facility] Famil y [facility] ID Date Data Source [id number] 08/29/2019 03:10:43 PM EDT [facility] Measurements & CalculationsHeight: 62 inches (5 ft. 2 in.) 157.48 cm Weight: 99 pounds 8 oz. 45.23 kg Body Mass Index (BMI): 18.26BMI Interpretation: UnderweightBody Surface Area (BSA): 1.42Weight Management Education Done (Nutrition/Physical Activity)Vital SignsTemperature: 98.1F tympanic Pulse Rate: 106 beats/minuteRespiratory Rate: 18 respirations/minuteBlood Pressure: 106/73 right arm sitting automaticO2 Saturation: 96% room airVital Signs performed by: Clarita Tracy LPN, August 29, 2019 3:20 PMInitial Intake Information From: patientRoom #: 1Infectious Disease / Travel ScreeningRecent travel for you or any close contacts? YesHave you had any close contact with anyone diagnosed with or under investigation for COVID-19 (coronavirus)? NoFever? NoRespiratory symptoms: cough, cold, congestion, shortness of breath, difficulty breathing? YesLoss of smell? YesLoss of taste? YesDetails: [facility] 07/2019 covid test negativeSmoking, Tobacco, Vaping or Smoke Exposure StatusSmoke Status: never smokerTobacco Use: NoDo you vape? YesCessation advice given: YesWhat is in your device? drugsFrequency: former vaperHealthcare HistorySince your last office visit...Have you been admitted to the hospital? NoHave you been to an emergency room (ER) or urgent care clinic? Yes - [facility] left side chest pain, coughEmergency room (ER) or urgent care date reported today: 08/27/2019Have you seen another healthcare provider? Yes - dr Bhagat you seen a dentist? Yes - ncfhdIntake performed by: Clarita Tracy LPN, August 29, 2019 3:15 PMRate Your HealthIn general, would you say your health is? PoorPain AssessmentAre you currently having any pain which... You would like your provider to address? No Affects your activity level? NoDepression Screening - PHQ-2Over the last two weeks, have you... Had little interest or pleasure in doing things? Not at all Been feeling down, depressed, or hopele ss? Not at all PHQ-2 Score: 0Anxiety Screening - NICOLLE-2Over the last two weeks, have you been... Feeling nervous, anxious, or on edge? Not at all Unable to stop or control worrying? Not at all NICOLLE-2 Score: 0Screening, Brief Intervention, & Referral to Treatment (SBIRT)Pre-Screening Questions How many times have you have 5 or more drinks in a day? 0How many times have you used an illegal drug or used a prescription medication for a non-medical reason? 0Performed by: Clarita Tracy LPN, August 29, 2019 3:18 PMPatient History Medical History:AsthmaHypertensionIBStension headachesdiplopiainsomniaisolated seizureship dysplasiaSurgical History:right armmetal plate- right armFamily History:Diabetes (Maternal Grandmother)Heart disease (Paternal Grandfather)Hypertension (Maternal Grandmother, Maternal Grandfather, Paternal Grandmother, Paternal Grandfather)Social/Personal History:Smoking History:Patient has never smoked. Chief ComplaintHD for chest pain with breathingHistory of Present Illness (HPI)18 yo male here for ongoing cough and left chest pain when breathing.Pt was working in [facility] 03/2019-07/2019. States he feels this began when he returned to [place]. Admits to postnasal drip and nonproduc tive cough. Denies fever, shortness of breath, wheezing. Transitions of Care InboundProblem ReviewProblem List was reviewed and/or updated during this visit.Medication Reconciliation & ReviewMedication List was reviewed and/or updated during this visit, including review of any rvzp-lsz-mwciprx medications, herbal therapies, and/or supplements.Allergy ReviewAllergy List was reviewed and/or updated during this visit.Adult Preventive CareProvider Calculated and Reviewed all Clinical Protocols for patient today. Labs/Meds/Other Counseling- Nutrition and Physical Activity:BMI Interpretation: Underweight (08/29/2019) Counseling: Done (08/29/2019) Physical Activity: Done (08/29/2019)Review of Systems General: Denies loss of appetite, chills, dizziness, fatigue, fever, headache, feeling ill. Ears/Nose/Throat: Complains of see HPI, nasal congestion. Denies sore throat. Cardiovascular: Denies chest pain, palpitations, feeling faint, peripheral edema. Respiratory: Complains of cough. Denies difficulty breathing, shortness of breath, coughing up blood, wheezing. Gastrointestinal: Denies nausea, vomiting, diarrhea, pain or discomfort. Neurologic: Denies weakness, numbness/tingling, feeling faint. Physical ExamGeneral Appearance: well nourished, well hydrated, no acute distress, shortened upper extremitiesEyes, External: conjunctivae and lids normal, EOMIExternal Ears: normal, no lesions or deformitiesHearing: grossly intactOtoscopy: canals clear, tympanic membranes intact, no fluid, light reflex intact bilaterallyNasal: mucosa, septum, and turbinates normal, nares patent, clear rhinorrheaLips/Teeth/Gums: normal dentition, no labial, tongue or mucosal lesions, no white patches, no swelling, no caries, no gingival hypertrophy, no bleeding gumsPharynx: tongue normal, posterior pharynx without erythema or exudate, no thrush/aphthous ulcerNeck: supple, no masses, trachea midline, full range of motion of neckThyroid: no nodules, masses, tenderness, or enlargementRespiratory, Auscultation: clear to auscultation bilaterally; no rales, rhonchi, or wheezesRespiratory, Effort: no intercostal retractions or use of accessory musclesCardiovascular, Auscultation: S1, S2 audible; no murmur, rub, or gallop; RRRPeripheral Circulation: no clubbing, cyanosis, edema, or varicositiesAbdomen: soft, non-tender, no masses, bowel sounds normalGait & Station: normalOrientation: oriented to time, place, and personJudgment & Insight: intactCare Management Plan Transitions of CareInboundRate Your HealthIn general, would you say your health is? PoorAssessment & Plan Problems:Added: Allergic rhinitis, unspecified (XWH15-D20.9) Assessment: Instructions: Suspect symptoms are secondary to untreated allergies and asthma. Avoid allergen exposure, consider an air purifier in your housing to help filter allergens out of the air. If symptoms continue, return for recheck and further treatment.Mild intermittent asthma, uncomplicated (REH57-G04.20) Assessment: Instructions: As above. Sent for albuterol rescue inhaler as needed.Removed:Unspecified asthma with (acute) exacerbation (IZW24-W74.901), Acute bronchitis, unspecified (YPG11-S36.9), Dysphagia (ICD-787.20) (ICD10- R13.10), Cellulitis of left finger (ICD-681.00) (LUP85-Y01.012)Patient Instructions/Care Plan: Allergic rhinitis- unspecified: Suspect symptoms are secondary to untreated allergies and asthma. Avoid allergen exposure, consider an air purifier in your housing to help filter allergens out of the air. If symptoms continue, return for recheck and further treatment.Mild intermittent asthma- uncomplicated: As above. Sent for albuterol rescue inhaler as needed. Plan developed in collaboration with patient and/or familyMedications:ALBUTEROL SULFATE HFA 108 (90 BASE) MCG/ACT INHALATION AEROSOL SOLUTIONCETIRIZINE HCL 10 MG ORAL TABLETCIMETIDINE 300 MG ORAL TABLETDAILY VALUE MULTIVITAMIN ORAL TABLETALBUTEROL SULFATE (2.5 MG/3ML) 0.083% INHALATION NEBULIZATION SOLUTIONMedication Changes:Added: CIMETIDINE 300 MG ORAL TABLET- bidNew Prescription:CETIRIZINE HCL 10 MG ORAL TABLET-Take 1 tablet po daily Qty: 90[Tablet] Refills: 3 Method: ElectronicALBUTEROL SULFATE HFA 108 (90 BASE) MCG/ACT INHALATION AEROSOL SOLUTION-Take 2 puffs oral inhalation q 4 hrs prn wheezing or shortness of breath Qty: 1[Inhaler] Refills: 3 Method: ElectronicRemoved:CHLORHEXIDINE GLUCONATE 0.12 % SOLN-Rinse for 1 minute with 10mL before bed Qty: 1[Bottle] Refills: 0, METOCLOPRAMIDE HCL 5 MG ORAL TABLET-1 po 1 hour prior to meals prn gastroparesis, IPRATROPIUM-ALBUTEROL 0.5-2.5 (3) MG/3ML INHALATION SOLUTION-1 syrette vis nebulizer bid, DICYCLOMINE HCL 10 MG ORAL CAPSULE-qid, SENNA 8.6 MG ORAL TABLET-2 qhs, CARAFATE 1 GM ORAL TABLET-bid, AMITRIPTYLINE HCL 10 MG ORAL TABLET-qhs, OMEPRAZOLE 20 MG ORAL CAPSULE DELAYED RELEASE-bid, DOCUSATE SODIUM 100 MG ORAL CAPSULE-bid, BENZONATATE 100 MG ORAL CAPSULE-tidAllergies:PENICILLIN (Moderate)AMOXICILLIN (Moderate)Orders:Adult - Ofc Vst, EST, Level III [CPT-31059] Follow-Up Return to clinic: as needed Additional Follow-Up: annual PEClinical Visit Summary CompletedMedications:ALBUTEROL SULFATE HFA 108 (90 BASE) MCG/ACT INHALATION AEROSOL SOLUTION (ALBUTEROL SULFATE) Take 2 puffs oral inhalation q 4 hrs prn wheezing or shortness of breath #1[Inhaler] x 3 Route:INHALATION Entered and Authorized by: Francisco BROWN Method used: Electronically to [facility] (retail) [address] [place] [address] Note to Pharmacy: Route: INHALATION; Indications: MILD INTERMITTENT ASTHMA, UNCOMPLICATED RxID: [id number] HCL 10 MG ORAL TABLET (CETIRIZINE HCL) Take 1 tablet po daily #90[Tablet] x 3 Route:ORAL Entered and Authorized by: Francisco BROWN Method used: Electronically to [facility] (retail) [address] [place] [address] Note to Pharmacy: Route: ORAL; Indications: MILD INTERMITTENT ASTHMA, UNCOMPLICATED;ALLERGIC RHINITIS, UNSPECIFIED RxID: [id number] CHLORHEXIDINE GLUCONATE 0.12 % SOLN (CHLORHEXIDINE GLUCONATE) Rinse for 1 minute with 10mL before bed #1[Bottle] x 0 Route:MOUTH/THROAT Authorized by: Negrita Mohamud DMD Method used: Electronically to [facility] (retail) [id number] [facility] [address] [place] [address] RxID: [id number] signed by Francisco BROWN on 09/09/2019 at 9:10 AM Name Value Range Interpretation Code Description Data Amy rce(s) Supporting Document(s) ID Date Data Source [id number] 05/18/2019 10:44:11 AM EST [facility] Name Value Range Interpretation Code Description Data Amy rce(s) Supporting Document(s) Tennis Ball Cover Cementer Authentication Interface Message Text [facility] There were no vitals taken for this visi t.PCP No primary care provider on file.HistoryChief ComplaintPatient presents with Cough FeverC/O cough, congestion and runny nose for 4 days. 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 PMH TCR andasthma.The history is provided by the patient.URIPresenting symptoms: congestion, cough and rhinorrheaPresenting symptoms: no fever and no sore throatSeverity: ModerateOnset quality: SuddenDuration: 4 daysTiming: ConstantProgression: UnchangedChronicity: NewRelieved by: NothingWorsened by: NothingIneffective treatments: Prescription medicationsAssociated symptoms: wheezingRisk factors: sick contactsPast Medical History:Diagnosis Date Thrombocytopenia-absent radius (TAR) syndrome as per ptNo past surgical history on file.No family history on file.Social HistoryTobacco Use Smoking status: Not on fileSubstance Use Topics Alcohol use: Not on file Drug use: Not on fileReview of SystemsConstitutional: Negative for chills and fever.HENT: Positive for congestion and rhinorrhea. Negative for sore throat.Respiratory: Positive for cough and wheezing. Negative for shortness of breath.Cardiovascular: Negative. Negative for chest pain.Gastrointestinal: Negative for abdominal pain, diarrhea, nausea and vomiting.Genitourinary: Negative.Musculoskeletal: Negative.Skin: Negative. Negative for rash .Neurological: Negative.Psychiatric/Behavioral: Negative.Physical ExamThere were no vitals taken for this visit.Physical ExamConstitutional: He appears well- developed and well-nourished. He is cooperative.HENT:Right Ear: Tympanic membrane and ear canal normal.Left Ear: Tympanic membrane and ear canal normal.Nose: Rhinorrhea present.Mouth/Throat: Uvula is midline, oropharynx is clear and moist and mucousmembranes are normal. No oral lesions. No uvula swelling. Tonsils are 0 on theright. Tonsils are 0 on the left. No tonsillar exudate.Neck: Neck supple.Cardiovascular: Regular rhythm and normal heart s ounds. Tachycardia present.Pulmonary/Chest: Effort normal. No respiratory distress. He has wheezes. He hasno rhonchi. He has no rales.Abdominal: Soft. There is no tenderness.Musculoskeletal: Normal range of motion.Neurological: He is alert. Gait normal.Skin: Skin is warm, dry and intact.Psychiatric: He has a normal mood and affect. His speech is normal and behavioris normal.Nursing note and vitals reviewed.ED CourseProceduresMDMNumber of Diagnoses or Management OptionsAmount and/or Complexity of Data ReviewedClinical lab tests: ordered and reviewed (Results for orders placed or performedduring the hospital encounter of 05/18/19-Influenza antigen Result Value Ref Range Influenza A Ag Negative Negative Influenza B Ag Negative Negative)Tests in the radiology section of CPT: ordered and reviewed (Xr Chest Pa AndLateralResult Date: 05/18/2019EXAMINATION: XR CHEST 2 VIEWS FRONT PA AND LAT HISTORY: cough for 1 week COMPARISON: NONE TECHNIQUE: PA and Lateral Chest X-rays FINDINGS: There is nofocal pulmonary opacity. The cardiomediastinal silhouette is within normallimits. No pneumothorax or pleural effusion. Bones are unremarkable.IMPRESSION: No acute cardiopulmonary abnormality.)Risk of Complications, Morbidity, and/or MortalityPresenting problems: moderateDiagnostic procedures: moderateManagement options: moderatePatient ProgressPatient progress: [id number]: SpO2 98%. Lungs have scattered wheezes all leiva. Medicated with a DuoNeb tx. Noted elevated HR, pt coughing and crying after flu swab.1010: Reported breathing easier, cough diminished, SpO2 100%, HR 98, lungs clearall leiva.1040: HR 84, SpO2 98%, pt breathing easy, no distress, Started pt on Prednisoneburst dose. Discussed x-ray results with pt .18 y/o male with PMH of asthma presents with a cough for 4 days. Started on Doxyby school physician. Awake and alert, afebrile, Noted clear rhinorrhea, rest ofHEENT normal. Lungs have scattered wheezes all leiva, HR tachycardic initially,normalized after treatment, ABD SNT, rest of exam normal. Medicated with aDuoneb that resolved the wheezing and coughing and Prednisone 60 mg po. ReviewedCXR with pt. Repeat exam. Lungs clear, HR 88, SpO2 98%. Pt was given anAlbuterol MDI and prescribed a Prednisone burst dose. No questions.Clinical Impression: Mild intermittent asthma with exacerbationDisposition: DischargeSwapnilPedro moura, NP05/18/19 1044 ID Date Data Source [id number] 05/18/2019 10:25:34 AM [employer] ORIGINAL: Sat May 18, 2019 10:25 AM by King Rajput MDEXAMINATION:XR CHEST 2 VIEWS FRONT PA AND LATHISTORY:cough for 1 weekCOMPARISON:NONETECHNIQUE:PA and Lateral Chest X-raysFINDINGS:There is no focal pulmonary opacity. The cardiomediastinal silhouette is within normal limits. Nopneumothorax or pleural effusion. Bones are unremarkable.IMPRESSION:No acute cardiopulmonary abnormality. Name Value Range Interpretation Code Description Data Amy rce(s) Supporting Document(s) ID Date Data Source [id number] 05/18/2019 10:15:00 AM [employer] Name Value Range Interpretation Code Description Data Amy rce(s) Supporting Document(s) INFLUENZA A ANTIGEN Negative Negative [facility] [place] INFLUENZA B ANTIGEN Negative Negative [facility] ID Date Data Source [id number] 05/18/2019 09:39:26 AM [employer] Name Value Range Interpretation Code Description Data Amy rce(s) Supporting Document(s) [employer] Authentication Interface Message Text [employer] [employer] ambulatory to ED with strong, faheem sh cough and runny nose. Patient reportsCough x 4 days, with post nasal drip triggering the cough. Pain in his chestand nausea. 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 ID Date Data Source [id number] 04/08/2019 10:50:07 PM [employer] Name Value Range Interpretation Code Description Data Amy rce(s) Supporting Document(s) Tennis Ball Cover Cementer Authentication Interface Message Text [facility] Patient discharged from the ED. Pt. Cari es to follow up with PMD and to returnto the ED if needed. ID Date Data Source [id number] 04/08/2019 10:39:00 PM EST [facility] Name Value Range Interpretation Code Description Data Amy rce(s) Supporting Document(s) Tenn[employer] Authentication Interface Message Text [facility] I called [employer] and notified them that patient is being discharged. Will awaittransportation to arrive. ID Date Data Source [id number] 04/08/2019 10:28:28 PM EST [facility] Name Value Range Interpretation Code Description Data [facility] rce(s) Supporting Document(s) Tennis Ball Cover Cementer Authentication Interface Message Text [facility] BP 164/80 (BP Location: Left arm, Patien t Position: Sitting) | Pulse 140 |Temp 98 F (36.7 C) (Tympanic) | Resp 20 | Ht 5' 2" (1.575 m) | Wt 100 lb(45.4 kg) | SpO2 100% | BMI 18.29 kg/mPCP No primary care provider on file.HistoryChief ComplaintPatient presents with Abdominal CrampingPt reports increasing abd pain since eating chicken at lunch. Pt also reportsvomiting.Past Medical History:Diagnosis Date Thrombocytopenia-absent radius (TAR) syndrome as per ptNo past surgical history on file.No family history on file.Social HistoryTobacco Use Smoking status: Not on fileSubstance Use Topics Alcohol use: Not on file Drug use: Not on fileReview of SystemsConstitutional: Positive for chills. Negative for fever.HENT: Negative.Respiratory: Negative.Gastrointestinal: Positi ve for abdominal pain, nausea and vomiting. Negative forconstipation and diarrhea.Genitourinary: Negative.Musculoskeletal: Negative.Skin: Negative.Neurological: Positive for dizziness.Psychiatric/Behavioral: Negative.Physical ExamBP 164/80 (BP Location: Left arm, Patient Position: Sitting) | Pulse 140 |Temp 98 F (36.7 C) (Tympanic) | Resp 20 | Ht 5' 2" (1.575 m) | Wt 100 lb(45.4 kg) | SpO2 100% | BMI 18.29 kg/mPhysical ExamConstitutional: He appears well-developed and well-nourished. He appearsdistressed.Neck: Normal range of motion. Neck supple.Cardiovascular: Regular rhythm and intact distal pulses.Pulmonary/Chest: Effort normal and breath sounds normal.Abdominal: He exhibits no distension. There is generalized tenderness. There isrigidity. There is no rebound and no CVA tenderness.Skin: He is diaphoretic. There is pallor.Nursing note and vitals reviewed.ED CourseProceduresMDMNumber of Diagnoses or Management OptionsAbdominal pain, generalized:Non-intractable vomiting with nausea, unspecified vomiting type:Diagnosis management comments: Iv started labs drawn , Zofran and morphine givenCbc 15.9-16.1-43.2-118Glu 122 bun 15 ca9.3-crea0.7 na143 k3.8 -cl 106Fluid bolus given pt's pain improvingUrine dip trace beltran culture sentCt Abdomen Pelvis With Iv ContrastResult Date: 04/08/2019EXAMINATION: CT scan of the abdomen and pelvis with intravenous contrastHISTORY: Abdominal pain. Nausea and vomiting. COMPARISON: None. TECHNIQUE:Axial images were obtained from the lung bases to the pubic symphysis in 5 mmslices after the administration of intravenous contrast. Oral contrast wasadministered.Coronal and sagittal reformatted images were provided. FINDINGS:Lung bases: The lung bases are clear. Liver: Unremarkable. Gallbladder:Unremarkable. Pancreas: Unremarkable. Kidneys: There is a left-sided pelvickidney. The right kidney is unremarkable. Adrenal glands: Unremarkable. Spleen:Unremarkable. Bowel: There is no bowel obstruction. There is moderate stool inthe colon. Appendix: Normal. Pelvic organs: The prostate gland is unremarkable.Urinary bladder: Collapsed, limiting evaluation of its wall. Lymph nodes: Thereis no abdominal, retroperitoneal, or pelvic lymphadenopathy. Vascular:Unremarkable. Other:There is no free intraperitoneal air or fluid.Musculoskeletal: There is no acute osseous abnormality. There is deformity ofthe left acetabulum with an old nonunited fracture. There is also deformity ofthe left femoral head with degenerative changes of the left hip joint.IMPRESSION: No acute abnormality of the abdomen or pelvis.Pt still cramping mild to moderateMylanta givenAmount and/or Complexity of Data ReviewedClinical lab tests: ordered and reviewedTests in the radiology section of CPT: ordered and reviewedDiscussion of test results with the performing providers: noDecide to obtain previous medical records or to obtain history from someoneother than the patient: noObtain history from someone other than the patient: noReview and summarize past medical records: noDiscuss the patient with other providers: noIndependent visualization of images, tracings, or specimens: noRisk of Complications, Morbidity, and/or MortalityPresenting problems: moderateDiagnostic procedures: moderateManagement options: moderatePatient ProgressPatient progress: improvedClinical Impression: Abdominal pain, generalizedNon-intractable vomiting with nausea, unspecified vomiting typeDisposition: Discharge in NAD with patrickHugoKeyur, NP04/08/198 ID Date Data Source [id number] 04/08/2019 10:18:28 PM [facility] ORIGINAL: MonApr 08, 2019 10:18 PM by Pola Richardson MDEXAMINATION:CT scan of the abdomen and pelvis with intravenous contrastHISTORY:Abdominal pain. Nausea and vomiting.COMPARISON:None.TECHNIQUE:Axial images were obtained from the lung bases to the pubic symphysis in 5 mm slices after theadministration of intravenous contrast. Oral contrast was administered.Coronal and sagittalreformatted images were provided.FINDINGS:Lung bases: The lung bases are clear.Liver: Unremarkable.Gallbladder: Unremarkable.Pancreas: Unremarkable.Kidneys: There is a left-sided pelvic kidney. The right kidney is unremarkable.Adrenal glands: Unremarkable.Spleen: Unremarkable.Bowel: There is no bowel obstruction. There is moderate stool in the colon.Appendix: Normal.Pelvic organs: The prostate gland is unremarkable.Urinary bladder: Collapsed, limiting evaluation of its wall.Lymph nodes: There is no abdominal, retroperitoneal, or pelvic lymphadenopathy.Vascular: Unremarkable.Other:There is no free intraperitoneal air or fluid.Musculoskeletal: There is no acute osseous abnormality. There is deformity of the left acetabulumwith an old nonunited fracture. There is also deformity of the left femoral head with degenerativechanges of the left hip joint.IMPRESSION:No acute abnormality of the abdomen or pelvis. Name Value Range Interpretation Code Description Data Amy rce(s) Supporting Document(s) ID Date Data Source [id number] 04/11/2019 07:57:00 AM EST [facility] Name Value Range Interpretation Code Description Data Amy rce(s) Supporting Document(s) CULTURE No Growth in [address] [facility] [place] ID Date Data Source [id number] 04/09/2019 08:17:00 AM EST [facility] Name Value Range Interpretation Code Description Data Amy rce(s) Supporting Document(s) COLOR Yellow Yellow [facility] CLARITY Clear Clear [facility] SPECIFIC GRAVITY UA 1.025 1.005-1.025 [facility] ealth PH UA 6.0 5.0-7.5 [facility] PROTEIN UA Negative Negative [facility] GLUCOSE UA Negative Negative [facility] KETONES URINE Negative Negative [facility] BILIRUBIN UA Negative Negative [facility] BLOOD UA Negative Negative [facility] NITRITE UA Negative Negative [facility] UROBILINOGEN UA 0.2 Eu/dL <=1.9 [facility] LEUKOCYTE ESTERASE UA Trace Negative Abnormal (applies t o non-numeric results) [facility] MICRO? Yes [facility] SQUAMOUS EPITHELIAL UA Few /HPF None Seen, Rare Abnormal (applies to non-numeric results) [facility] WBC UA 0-1 /HPF 0-1 [facility] BACTERIA UA 1+ /HPF None Seen Abnormal (applies to non-numeric re sults) [facility] AMORPHOUS CRYSTAL UA Many /HPF None Seen Abnormal (a pplies to non-numeric results) [facility] ID Date Data Source [id number] 04/08/2019 10:08:21 PM EST [facility] Name Value Range Interpretation Code Description Data Amy rce(s) Supporting Document(s) [employer] Authentication Interface Message Text [facility] Patient arrived from ED. Consent for IV contrast secured.Patient identified as per protocol and has verbalized understanding ofdiagnostic study.Lab work, per protocol, show GFR and Creatinine within acceptable limits (GFR >30, Creatinine <1.7).Patient's pre IV Contrast worklist reviewed.Patient given oral contrast consisting of 50ml Omnipaque 250 diluted into 1000mlof water90 minutes prior to exam.Patient educated on IV contrast and possible reactions. Patient instructed toalert nurse/tech/provider of difficulty breathing, itching or tightness inchest. Patient verbalized understanding.85ml Isovue 350 injected via 20G angiocath located in HANDat a rate of 1MLper second. Patient instructed to increase PO fluid intake today and tomorrow (6 8-ozglasses of fluid) as allowed by ED provider. Used teach back method to verbalizeunderstanding.Patient escorted back to ED exam results pending radiologist report. ID Date Data Source [id number] 04/08/2019 09:28:30 PM EST [facility] Name Value Range Interpretation Code Description Data Amy rce(s) Supporting Document(s) [employer] Authentication Interface Message Text [facility] Patient is resting comfortably. Drinking CT contrast slowly. ID Date Data Source [id number] 04/09/2019 07:43:00 AM EST [facility] Name Value Range Interpretation Code Description Data Amy rce(s) Supporting Document(s) WBC 15.9 10^3/L 4.5-13.0 Above high normal [facility] RBC 5.62 10^6/L 4.70-6.00 [facility] HEMOGLOBIN 16.1 g/dL 13.5-17.5 [facility] HEMATOCRIT 43.2 % 41.0-53.0 [facility] MCV 76.9 fL 80.0-100.0 Below low normal [facility] MCH 28.6 pg 26.0-34.0 [facility] MCHC 37.3 g/dL 31.0-37.0 [facility] R[facility] Not performed PLATELET COUNT 118 10^3/L 150-400 Below low normal [facility] ID Date Data Source [id number] 04/09/2019 07:42:00 AM EST [facility] Name Value Range Interpretation Code Description Data Amy rce(s) Supporting Document(s) SODIUM 143 mEq/L 136-145 [facility] POTASSIUM 3.8 mEq/L 3.5-5.1 [facility] CHLORIDE 106 mEq/L 98-107 [facility] CO2 23 mEq/L 21-32 [facility] BLOOD UREA NITROGEN 15 mg/dL 7-18 [facility] [place] GLUCOSE 122 mg/dL 74-106 Above high normal [facility] CALCIUM 9.3 mg/dL 8.5-10.1 [facility] CREATININE 0.70 mg/dL 0.60-1.30 [facility] ANION GAP 14 mEq/L 5-15 [facility] EGFR >=60.0 [facility] ealt EGFR NON >=60.0 [facility] ID Date Data Source [id number] 04/08/2019 07:51:05 PM EST [facility] Name Value Range Interpretation Code Description Data Amy rce(s) Supporting Document(s) [employer] Authentication Interface Message Text [facility] Assessment has been completed. VS as not ed. See triage note and assessmentsheet. ID Date Data Source [id number] 04/08/2019 07:47:55 PM [facility] Name Value Range Interpretation Code Description Data Amy rce(s) Supporting Document(s) [employer] Authentication Interface Message Text [facility] Complains of abdominal pain after eating chicken at lunch. 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)Unspecified asthma with (acute) exacerbation (TLX97-R80.901)Acute bronchitis, unspecified (ABL11-O02.9)Current Medications: CHLORHEXIDINE GLUCONATE 0.12 % SOLN (CHLORHEXIDINE GLUCONATE) Rinse for 1 minute with 10mL before bed; Route: MOUTH/THROATDAILY VALUE MULTIVITAMIN ORAL TABLET (MULTIPLE VITAMIN) 1 po daily; Route: ORALMETOCLOPRAMIDE HCL 5 MG ORAL TABLET ( METOCLOPRAMIDE HCL) 1 po 1 hour prior to meals prn gastroparesis; Route: ORALIPRATROPIUM-ALBUTEROL 0.5-2.5 (3) MG/3ML INHALATION SOLUTION (IPRATROPIUM- ALBUTEROL) 1 syrette vis nebulizer bid; Route: INHALATIONALBUTEROL SULFATE (2.5 MG/3ML) 0.083% INHALATION NEBULIZATION SOLUTION (ALBUTEROL SULFATE) 1 syrette via nebulizer every 4-6 hours prn wheeaing; Route: INHALATIONDICYCLOMINE HCL 10 MG ORAL CAPSULE (DICYCLOMINE HCL) qid; Route: ORALSENNA 8.6 MG ORAL TABLET (SENNOSIDES) 2 qhs; Route: ORALBENZONATATE 100 MG ORAL CAPSULE (BENZONATATE) tid; Route: ORALCARAFATE 1 GM ORAL TABLET (SUCRALFATE) bid; Route: ORALAMITRIPTYLINE HCL 10 MG ORAL TABLET (AMITRIPTYLINE HCL) qhs; Route: ORALOMEPRAZOLE 20 MG ORAL CAPSULE DELAYED RELEASE (OMEPRAZOLE) bid; Route: ORALDOCUSATE SODIUM 100 MG ORAL CAPSULE (DOCUSATE SODIUM) bid; Route: ORALCurrent Allergies: PENICILLIN (Moderate)AMOXICILLIN (Moderate) Dental Chart: Procedures:Type - CDT Code - Description B - (D0140) Limited oral evaluation - problem focused on Tooth # 29 (Performed by Negrita Mohamud DMD) B - (D0220) Intraoral, periapical, first radiographic image on Tooth # 29 (Performed by Negrita Mohamud DMD) Chart Notes:steve (Mar 14 2019 10:53AM): S: CC: same area as last emergency; pt. states ENT said it was gingivitisO: Pain in #29,30,31, Buccal area. RMHx (N/C Per Pt.) HPI: PL: BP: Not taken as it is a follow up to last emerg. A: Ulcer that was present on last emerg no longer present. no plaque present, pain could be present from injury during brushing. DDS recommends changing of brushing habit as pt. has no fractures, caries or plaque present. Pt mention possible rebound pain - tested each tooth Pain feel relieve when letting go not more pain DX: trauma on gumlineP: Disuccsed brushing technique with pt. E-scribe Chlorohexidine mouthwash to help pt. with pain from gums. [facility]acy: [facility] [place].Informed Pt about new pain management policy of the clinic regarding about narcotic,told pt to alternate Ibuprophen 600- 800mg and tylenol 500mg every 4 to 6 hrs for pain when neededAssisted By:JEFFY: None pt. is moving to [facility] Negrita BELL by steve (03/14/2019 10:53 AM): Tooth Notes and Watches: Medication Changes:New Prescr iption:CHLORHEXIDINE GLUCONATE 0.12 % SOLN-Rinse for 1 minute with 10mL before bed Qty: 1[Bottle] Refills: 0 Method: Electronic Name Value Range Interpretation Code Description Data Amy rce(s) Supporting Document(s) Procedure Social History Code Duration Value Status Description Data Source(s ) Smoking 02/03/2020 12:00:00 AM EST Unknown if ever smoked comp leted Unknown if ever smoked [facility] ([facility]) Smoking 01/15/2020 12:00:00 AM EST Unknown if ever smoked comp leted Unknown if ever smoked [facility] ([facility]) Smoking 01/14/2020 12:00:00 AM EST Unknown if ever smoked comp leted Unknown if ever smoked [facility] ([facility]) Alcohol intake 12/08/2019 12:00:00 AM EDT Lifetime non-drinker (findi ng) [facility] Tobacco smoking status [facility] 12/08/2019 12:00:00 AM EDT Never smoker [facility] History SDOH Alcohol Frequency 05/18/2019 12:00:00 AM EST 1 [facility] Alcohol intake 05/18/2019 12:00:00 AM EST Never [facility] Tobacco smoking status [facility] 05/18/2019 12:00:00 AM EST Never smoker [facility] Tobacco smoking status [facility] 04/08/2019 12:00:00 AM EST Unknown if e tash smoked [facility] Vital Signs ID Date Data Source UNK Name Value Range Interpretation Code Description Data Source(s) Diastolic blood pressure 77 mm[Hg] 77 mm[Hg] [facility] ([facility]) Body weight 1656 [oz_av] 1656 [oz_av] [facility] ([facility]) Systolic blood pressure 108 mm[Hg] 108 mm[Hg] A [facility] ([facility]) Body mass index (BMI) [Ratio] 18.9 kg/m2 18.9 k g/m2 [facility] ([facility]) Body height 62 [in_i] 62 [in_i] [facility] ([facility]) Body weight 1622 [oz_av] 1622 [oz_av] [facility] ([facility]) Systolic blood pressure 102 mm[Hg] 102 mm[Hg] A [facility] ([facility]) Body mass index (BMI) [Ratio] 18.5 kg/m2 18.5 k g/m2 [facility] ([facility]) Body height 62 [in_i] 62 [in_i] [facility] ([facility]) Diastolic blood pressure 70 mm[Hg] 70 mm[Hg] [facility] ([facility]) Body weight 1622 [oz_av] 1622 [oz_av] [facility] ([facility]) Systolic blood pressure 102 mm[Hg] 102 mm[Hg] [facility] Body mass index (BMI) [Ratio] 18.5 kg/m2 18.5 k g/m2 [facility] ([facility]) Body height 62 [in_i] 62 [in_i] [facility] ([facility]) Diastolic blood pressure 70 mm[Hg] 70 mm[Hg] [facility] ([facility]) Body weight 1544 [oz_av] 1544 [oz_av] [facility] ([facility]) Systolic blood pressure 141 mm[Hg] 141 mm[Hg] [facility] Body mass index (BMI) [Ratio] 17.6 kg/m2 17.6 k g/m2 [facility] ([facility]) Body height 62 [in_i] 62 [in_i] [facility] ([facility]) Diastolic blood pressure 85 mm[Hg] 85 mm[Hg] [facility] ([facility]) Body weight 1544 [oz_av] 1544 [oz_av] [facility] ([facility]) Systolic blood pressure 141 mm[Hg] 141 mm[Hg] A [facility] ([facility]) Body mass index (BMI) [Ratio] 17.6 kg/m2 17.6 k g/m2 [facility] ([facility]) Body height 62 [in_i] 62 [in_i] [facility] ([facility]) Diastolic blood pressure 85 mm[Hg] 85 mm[Hg] [facility] ([facility]) Body weight 1544 [oz_av] 1544 [oz_av] [facility] ([facility]) Systolic blood pressure 141 mm[Hg] 141 mm[Hg] A [facility] ([facility]) Body mass index (BMI) [Ratio] 17.6 kg/m2 17.6 k g/m2 [facility] ([facility]) Body height 62 [in_i] 62 [in_i] [facility] ([facility]) Diastolic blood pressure 85 mm[Hg] 85 mm[Hg] [facility] ([facility]) Body weight 1544 [oz_av] 1544 [oz_av] [facility] ([facility]) Systolic blood pressure 141 mm[Hg] 141 mm[Hg] A [facility] ([facility]) Body mass index (BMI) [Ratio] 17.6 kg/m2 17.6 k g/m2 [facility] ([facility]) Body height 62 [in_i] 62 [in_i] [facility] ([facility]) Diastolic blood pressure 85 mm[Hg] 85 mm[Hg] [facility] ([facility]) Oxygen saturation in Arterial blood by Pulse oximetry 98 % 98 % [facility] Body weight 41.731 kg 41.731 kg [facility] Body height 157.5 cm 157.5 cm [facility] Respiratory rate 20 /min 20 /min [facility] Body temperature 37.22 Maria M 37.22 Maria M [facility] Heart rate 90 /min 90 /min [facility] Diastolic blood pressure 94 mm[Hg] 94 mm[Hg] [facility] Systolic blood pressure 135 mm[Hg] 135 mm[Hg] G [facility] Oxygen saturation in Arterial blood by Pulse oximetry 98 % 98 % [facility] Respiratory rate 20 /min 20 /min [facility] Heart rate 88 /min 88 /min [facility] Body height 157.5 cm 157.5 cm [facility] Body temperature 37.11 Maria M 37.11 Maria M [facility] Diastolic blood pressure 90 mm[Hg] 90 mm[Hg] [facility] Systolic blood pressure 142 mm[Hg] 142 mm[Hg] G [facility] Oxygen saturation in Arterial blood by Pulse oximetry 98 % 98 % [facility] Respiratory rate 18 /min 18 /min [facility] Body temperature 37.11 Maria M 37.11 Maria M [facility] Heart rate 97 /min 97 /min [facility] Diastolic blood pressure 58 mm[Hg] 58 mm[Hg] [facility] Systolic blood pressure 99 mm[Hg] 99 mm[Hg] [facility] Body weight 45.36 kg 45.36 kg [facility] Body height 157.5 cm 157.5 cm [facility] Body weight 47.628 kg 47.628 kg [facility] ([facility], ) Body mass index (BMI) [Ratio] 19.2 kg/m2 19.2 k g/m2 [facility] ([facility]) Body weight 105.00 [lb_av] 105.00 [lb_av] [facility] ([facility], ) Body height 62 [in_i] 62 [in_i] [facility] ([facility], ) 5'2" ID Date Data Source [id number] 12/06/2019 08:08:36 PM [facility] Name Value Range Interpretation Code Description Data Source(s) Body height Measured 62 in 62 in [facility] Patient Treatment Plan of Care Planned Activity Planned Date Details Description Data Source (s) valacyclovir 1000 MG Oral Tablet [facility] ([facility]) Tab-A-Carlo 400 mcg tablet AT [facility] ([facility]) Polyethylene Glycol 400 4 MG/ML / Propyl odessa glycol 3 MG/ML Ophthalmic Solution [Systane] [facility] ([facility]) Sulfamethoxazole 800 MG / Trimethoprim 160 MG Oral Tablet [facility] ([facility]) quetiapine 50 MG Oral Tablet [facility] ([facility]) quetiapine 25 MG Oral Tablet [facility] ([facility]) Prednisone 20 MG Oral Tablet [facility] ([facility]) Ondansetron 4 MG Disintegrating Oral Tablet [facility] ([facility]) Omeprazole 40 MG Delayed Release Oral Capsule [facility] ([facility]) Omeprazole 20 MG Delayed Release Oral Capsule [facility] ([facility]) Metoclopramide 5 MG Oral Tablet [facility] ([facility]) imiquimod 50 MG/ML Topical Cream [facility] ([facility]) Hydroxyzine Hydrochloride 50 MG Oral Tablet [facility] ([facility]) Fluorouracil 50 MG/ML Topical Cream [facility] ([facility]) Doxycycline Monohydrate 100 MG Oral Capsule [facility] ([facility]) Clindamycin 10 MG/ML Topical Solution [facility] ([facility]) Cimetidine 300 MG Oral Tablet [facility] ([facility]) chlorhexidine gluconate 1.2 MG/ML Mouthwash [facility] ([facility]) cetirizine hydrochloride 10 MG Oral Tablet [facility] ([facility]) benzonatate 100 MG Oral Capsule [facility] ([facility]) Azithromycin 250 MG Oral Tablet [facility] ([facility])
--- OUTSIDE RECORDS SUMMARY | 2020-04-30 06:02 | CCD ---
Author Author [facility] Organization [facility] Address Unknown Phone Unavailable Support Name Relationship Address Phone Pedro Cates MD Next Of Kin [address] [place] [address] UN Next Of Kin Unknown Unavailable Adria Hanson MD Next Of Kin [address] [place] [address] DISABLED Next Of Kin Unknown Unavailable UNEMPLOYED Next Of Kin Unknown [facility] Next Of Kin [address] [place] [address] [facility] Next Of Kin [facility] [place] [address] Nu ALDANA Next Of Kin [address] [facility] [address] [place] [address] ELIZABETH PARSONS Next Of Kin [address] [facility] [address] [place] [address] ALIDA GALINDO Next Of Kin [address] [place] [address] SEEMA GALINDO Next Of Kin [address] [place] [address] UE Next Of Kin Unknown Unavailable JOVAN, LEGAL GUARDIAN ELIZABETH Next Of Kin [address] [facility] [address] [place] [address] ST Next Of Kin Unknown Unavailable TITIEILZABETH Next Of Kin [address] [facility] [address] [place] [address] TITIELIZABETH ECON [address] [facility] [address] [place] [address] [phone] Care Team Providers Care Potable Water Treatment Operator Name Role Phone Francisca Cates MD Unavailable [...] Unavailable Francisca Cates MD Unavailable Unavailable Francisca Catse MD Unavailable Unavailable Francisca Cates MD Unavailable [...] Unavailable Francisca Cates MD Unavailable Unavailable Francisca Ctaes MD Unavailable Unavailable Francisca Cates MD Unavailable [...] Unavailable Sesar HANSON MD Unavailable Unavailable Sesar HANOSN MD Unavailable Unavailable Sesar HANSON MD Unavailable [...] Unavailable Sesar HANSON MD Unavailable Unavailable Sesar AHNSON MD Unavailable Unavailable Sesar HANSON MD Unavailable [...] is protected by Article 27-F of the [facility] Public Health law. If you continue you may have access to information: Regarding HIV / AIDS; Provided by facilities licensed or operated by the [facility] Office of Mental Health; or Provided by the [facility] Office for People With Developmental Disabilities. If such information is present, then the following [facility] mandated warning applies: This information has been [...] law may result in a fine or assisted sentence or both. A general authorization for [...] Unknown Problem [facility] ([facility]) Encounters Encounter Providers Location Date Indications Data Source(s ) Pedro Cates MD: [address] [place] [address], Ph. Attender: Pedro Cates MD [facility] Medical 04/10/2020 12:00:00 AM [facility] ([facility]) Pedro Cates MD: [address] [place] [address], Ph. Attender: Pedro Cates MD [facility] Medical 03/27/2020 12:00:00 AM EST PINK[facility] ([facility]) Pedro Cates MD: [address] [place] [address], Ph. Attender: Pedro Cates MD [facility] Medical 03/27/2020 12:00:00 AM EST [facility] ([facility]) Pedro Ctaes MD: [address] [place] [address], Ph. Attender: Pedro Cates MD [facility] Medical 03/11/2020 12:00:00 AM EST [facility] ([facility]) Pedro Cates MD: [address] [place] [address], Ph. Attender: Pedro Cates MD [facility] Medical 03/11/2020 12:00:00 AM EST [facility] ([facility]) Pedro Cates MD: [address] [place] [address], Ph. Attender: Pedro Cates MD [facility] Medical 03/11/2020 12:00:00 AM EST [facility] ([facility]) Pedro Cates MD: [address] [place] [address], Ph. Attender: Pedro Cates MD [facility] Medical 03/11/2020 12:00:00 AM EST [facility] ([facility]) Psychiatric Diagnostic Evaluation (Non-Medical) Attender: Jac Bello [facility] 02/03/2020 11:00:00 AM EST - 02/03/2020 11:00:00 AM EST [facility] ([facility]) Attender: Frantz Bello 02/03/2020 12:00:00 AM EST [facility] ([facility]) Psychiatric Diagnostic Evaluation (Non-Medical) Attender: Jac Bello [facility] 01/15/2020 02:00:00 AM EST - 01/15/2020 02:00:00 AM EST [facility] ([facility]) Attender: Frantz Ace 01/15/2020 12:00:00 AM EST [facility] ([facility]) Psychiatric Diagnostic Evaluation (Non-Medical) Attender: Jac Bello [facility] 01/14/2020 02:00:00 AM EST - 01/14/2020 02:00:00 AM EST [facility] ([facility]) Attender: Frantz Ace 01/14/2020 12:00:00 AM EST [facility] ([facility]) Attender: ALYX MANZANARES 12/08/2019 11:12:12 AM EDT - 12/08/2019 01:16:00 PM EDT [facility] Attender: ALYX DONG [facility] ED 11/12 11:05:00 AM EDT - 12/08/2019 01:16:00 PM EDT [facility] Patient discharged. Emergency 12/06/2019 04:36:00 PM EDT - 12/06/2019 08:08:00 PM EDT Kidney; [facility] Kidney; hip Patient discharged. Outpatient Attender: Pedro Cates MD 11/07/2019 09:55:[address] [facility] Outpatient Attender: Pedro Cates MD 09/17/2019 10:29:[address] [facility] Outpatient Attender: ADRIA HANSON MD 09/17/2019 12:02:[address] [facility] Outpatient Attender: ADRIA HANSON MD 09/16/2019 11:58:[address] [facility] Outpatient Attender: ADRIA HANSON MD 09/16/2019 11:53:[address] [facility] Outpatient Attender: ADRIA HANSON MD 09/16/2019 11:28:[address] [facility] Outpatient Attender: ADIRA HANSON MD 09/16/2019 11:12:[address] [facility] Outpatient Attender: ADRIA HANSON MD 09/16/2019 10:41:00 A M [facility] Outpatient Attender: ADRIA HANSON MD 09/10/2019 12:55:01 P M [facility] Outpatient Attender: ADRIA HANSON MD 09/10/2019 08:49:[address] [facility] Outpatient Attender: ADRIA HANSON MD 09/10/2019 08:49:00 A M [facility] Outpatient Attender: ADRIA HANSON MD 09/09/2019 11:37:01 A M [facility] Outpatient Attender: ADRIA HANSON MD 09/09/2019 09:11:01 A M [facility] Outpatient Referrer: BOUBACAR MANCILLA MD 09/06/2019 05:00:0 0 AM [facility] Outpatient Attender: ADRIA HANSON MD 08/30/2019 09:02:00 A M [facility] Outpatient Attender: ADRIA HANSON MD 08/30/2019 08:54:02 A M [facility] Outpatient Attender: ADRIA HANSON MD 08/30/2019 08:10:00 A M [facility] Outpatient Attender: ADRIA HANSON MD 08/29/2019 03:44:01 P M [facility] Outpatient Attender: ADRIA HANSON MD 08/29/2019 02:48:01 P M [facility] Outpatient Attender: ADRIA HANSON MD 08/20/2019 07:31:39 P M [facility] Attender: Pedro Stein 0 09:39:26 AM [facility] 05/18/2019 11:23:00 AM EST [facility] Attender: Pdero DONG [facility] ED 0 09:35:00 AM EST 05/18/2019 11:23:00 AM EST [facility] Patient discharged. Outpatient Attender: ADRIA HANSON MD 04/17/2019 02:57:[address] [facility] 04/08/2019 07:47:55 PM EST - 020 10:50:00 PM EST [facility] 04/08/2019 07:46:00 PM EST 03/14 10:50:00 PM EST [facility] Patient discharged. [facility] [address] [place] [address] 04/08/2019 12:00:00 AM EST eCW1 ([facility]) Outpatient Attender: ADRIA HANSON MD 03/14/2019 02:46:01 P [facility] Outpatient Attender: ADRIA HANSON MD 03/14/2019 02:44:02 P [facility] Outpatient Attender: ADRIA HANSON MD 03/14/2019 11:01:02 A [facility] Outpatient Attender: ADRIA HANSON MD 03/14/2019 10:55:02 A [facility] Outpatient Attender: ADRIA HANSON MD 03/14/2019 10:31:00 A [facility] Outpatient Attender: ADRIA HANSON MD 03/14/2019 10:29:00 A [facility] Outpatient Attender: ADRIA HANSON MD 03/04/2019 01:35:02 P [facility] Outpatient Attender: ADRIA HANSON MD 03/04/2019 01:35:01 P [facility] Medications Medication Brand Name Start Date Product [...] TIMES A DAY FOR COUGH SOLD: 03/07/2020 [facility] 20 mg 03/07/2020 12:00:00 AM EST [...] 2400mg from all sources in 24 hours.
[facility] Medication administered onsite Acetaminophen 325 MG [...] mg from all sources in 24 hours.
[facility] Medication administered onsite 0.4-0.3 % 11/01/2019 [...] WHEEZING FOR SHORTNESS OF BREATH SOLD: 03/04/2020 [facility] Fluorouracil 50 MG/ML Topical Cream [Efudex] Efudex 06/2019 12:00:00 AM EDT active [facility] ( [facility] Cimetidine 300 MG Oral Tablet Cimetidine 08/15/2019 12:00:00 AM EDT ORAL active [facility] ([facility] 300 mg 08/15/2019 12:00:00 AM EDT tablet 60 TAKE TWO TABLETS BY MOUTH TWICE A DAY TAKE TWO TABLETS BY MOUTH TWICE A DAY SOLD: 08/16/2019 [facility] 5 % 08/15/2019 12:00:00 AM EDT cream 40 APPLY TO WARTS AT NIGHT, COVER WITH BANDAID APPLY TO WARTS AT NIGHT, COVER WITH BANDAID SOLD: 08/16/2019 [facility] Prednisone 20 MG Oral Tablet predniSONE (DELTASONE) ta blet 60 mg predniSONE (DELTASONE) tablet 60 mg 05/18/2019 10:45:00 AM EST 60 mg Oral completed 60 mg, Oral, ONCE, 05/18/19 at 1045, For 1 dose [facility] Medication administered onsite albuterol (PROVENTIL HFA;VENTOLIN HFA) inhaler 2 puff [id number] 05/18/2019 10:34:07 AM EST 2 {puff} Inhalation completed 2 puff, Inhalation, EVERY 4 HOURS PRN, Wheezing, Shortness of Breath, Starting 05/18/19 at 1034, For 1 dose [facility] Medication administered onsite Albuterol 0.833 MG/ML / Ipratropium Brom tracey 0.167 MG/ML Inhalant Solution ipratropium-albuterol (DUONEB) nebulizer solution 3 mL ipratropium-albuterol (DUONEB) nebulizer solution 3 mL 05/18/2019 09:45:00 AM EST 3 mL Nebulization completed 3 mL, Nebulization, ED ON CE, 05/18/19 at 0945, For 1 dose [facility] Medication administered onsite Prednisone 20 MG Oral Tablet predniSONE (DELTASONE) 20 MG tablet predniSONE (DELTASONE) 20 MG tablet 05/18/2019 12:00:00 AM EST 40 mg Oral completed Take 2 tablets by mouth daily for 4 days . [facility] Take 2 tablets by mouth daily for 4 days . Atropine Sulfate 0.88787 MG/ML / Hyoscya mine Sulfate 0.0207 MG/ML / Phenobarbital 3.24 MG/ML / Scopolamine Hydrobromide 0.0013 MG/ML Oral Solution Tlmectfiy-Mbdutp-Liasmkhj-Scopolamine () elixir 5 mL Iskoxrjft-Mdkwaz-Lbmyzvyt-Scopolamine () elixir 5 mL 04/08/2019 10:30:00 PM EST 5 mL Oral completed 5 mL, Oral, ONCE, Mon04/08/19 at 2230, For 1 dose
Each 5mL of contains:hyoscyamine sulfate 0.1037 mgatropine sulfate 0.0194 mgscopolamine hydrobromide 0.0065 mgphenobarbital 16.2 mg
[facility] Medication administered onsite Aluminum Hydroxide 40 MG/ML / Magnesium Hydroxide 40 MG/ML / Simethicone 4 MG/ML Oral Suspension aluminum-magnesium hydroxide-simethicone (MAALOX) 200-200-20 MG/5ML suspension 15 mL aluminum-magnesium hydroxide-simethicone (MAALOX) 200-200-20 MG/5ML suspension 15 mL 04/08/2019 10:30:00 PM EST 15 mL Oral completed 15 mL, Oral, ONCE, Mon04/08/19 at 2230, For 1 dose [facility] Medication administered onsite Ondansetron 8 MG Disintegrating Oral Tab let ondansetron (ZOFRAN-ODT) disintegrating tablet 8 mg ondansetron (ZOFRAN-ODT) disintegrating tablet 8 mg 04/08/2019 10:30:00 PM EST 8 mg Oral completed 8 mg, Oral, ONCE, Mon04/08/19 at 2230, For 1 dose
Give to go may use 1 tab every 6 hrs as needed
[facility] Medication administered onsite sodium chloride 0.9 % bolus 500 mL [id number] 04/08/2019 08:15:00 PM EST 500 mL Intravenous completed 500 mL, Intravenous, Administer over 1 Hours, ONCE, Mon04/08/19 at 2015, For 1 dose [facility] Medication administered onsite iohexol (OMNIPAQUE) 50 mL [id number] 04/08/2019 08:00:00 PM EST 50 mL Oral completed 50 mL, Oral, ONCE, Mon04/08/19 at 1999, For 1 dose
Administer one 240 mg/ml (50 ml) bottle in 1000 ml sterile water.Do not add flavorings.Mix immediately prior to use.
[facility] Medication administered onsite ondansetron (ZOFRAN) injection 4 mg [id number] 04/08/2019 08:00:0 0 PM EST 4 mg IV Push completed 4 mg, IV P ush, ONCE, Mon04/08/19 at 1999, For 1 dose
If given IV Push, May be given undiluted and Push over 2 minutes.
[facility] Medication administered onsite morphine injection 2 mg [id number] 04/08/2019 08:00:00 PM EST 2 mg IV Push completed 2 mg, IV Push, ONCE, Mon04/08/19 at 2000, For 1 dose
If given IV Push, May be given undiluted or may dilute with 5mL NS and Push over 5 minutes.
[facility] Medication administered onsite Ondansetron 4 MG Disintegrating Oral Tab let ondansetron (ZOFRAN ODT) 4 MG disintegrating tablet ondansetron (ZOFRAN ODT) 4 MG disintegrating tablet 04/08/2019 12:00:00 AM EST 4 mg Oral completed Take 1 tablet by mouth every 8 (eight) hours as needed for Nausea for up to 7 days. [facility] Take 1 tablet by mouth every [...] completed clindamycin 10 MG/ML Topical Solution [facility] ([facility]) Omeprazole 40 MG Delayed Release Oral Ca psule omeprazole 40 mg capsule,delayed release TAKE ONE CAPSULE BY MOUTH EVERY DAY omeprazole 40 mg capsule,delayed release TAKE ONE CAPSULE BY MOUTH EVERY DAY completed omeprazole 40 MG Delayed Release Oral Capsule [facility] ([facility]) Cimetidine 300 MG Oral Tablet cimetidine 300 mg tablet TAKE TWO TABLETS BY MOUTH TWICE A DAY cimetidine 300 mg tablet TAKE TWO TABLETS BY MOUTH TWICE A DAY completed cimetidine 300 MG Oral Tablet [facility] ([facility]) benzonatate 100 MG Oral Capsule benzonat ate 100 mg capsule TAKE ONE CAPSULE BY MOUTH THREE TIMES A DAY FOR COUGH benzonatate 100 mg capsule TAKE ONE CAPS ULE BY MOUTH THREE TIMES A DAY FOR COUGH com pleted benzonatate 100 MG Oral Capsule [facility] ([facility]) Azithromycin 250 MG Oral Tablet azithromycin 250 mg ta blet azithromycin 250 mg tablet completed azithromycin 25 0 MG Oral Tablet [facility] ([facility]) Fluorouracil 50 MG/ML Topical Cream fluo rouracil 5 % topical cream APPLY TO WARTS AT NIGHT COVER WITH BANDAID fluorouracil 5 % topical cream APPLY TO WARTS AT NIGHT COVER WITH BANDAID complete d fluorouracil 50 MG/ML Topical Cream [facility] ([facility]) Omeprazole 40 MG Delayed Release Oral Ca psule omeprazole (PRILOSEC) 40 MG capsule omeprazole (PRILOSEC) 40 MG capsule 40 mg Oral completed Take 40 mg by mouth daily. [facility] Take 40 mg by mouth daily. doxycycline hyclate 100 MG Oral Capsule doxycycline (V IBRAMYCIN) 100 MG capsule doxycycline (VIBRAMYCIN) 100 MG capsule 100 mg Oral completed Take 100 mg by mouth every 12 (twelve) hours. [facility] Take 100 mg by mouth every 12 (twelve) h ours. Prednisone 20 MG Oral Tablet prednisone 20 mg tablet TAKE 2 TABLETS BY MOUTH EVERY DAY prednisone 20 mg tablet TAKE 2 TABLETS BY MOUTH EVERY DAY completed prednisone 20 MG Oral Tablet ATH GUTIERREZ ([facility]) chlorhexidine gluconate 1.2 MG/ML Mouthw tabitha chlorhexidine gluconate 0.12 % mouthwash chlorhexidine gluconate 0.12 % mouthwash completed chlorhexidine gluconate 1.2 MG/ML Mouthwash [facility] ([facility]) Omeprazole 20 MG Delayed Release Oral Ca psule omeprazole 20 mg capsule,delayed release omeprazole 20 mg capsule,delayed release completed omeprazole 20 MG Delayed Release Oral Capsule [facility] ([facility]) imiquimod 50 MG/ML Topical Cream imiquim od 5 % topical cream packet APPLY TO AFFECTED AREA S ONCE DAILY NEEDED imiquimod 5 % topical cream packet APPLY TO AFFECTED AREA S ONCE DAILY NEEDED completed imiquimod 50 MG/ML Topical Cream [facility] ([facility]) Doxycycline Monohydrate 100 MG Oral Caps ule doxycycline monohydrate 100 mg capsule doxycycline monohydrate 100 mg capsule completed doxycycline monohydrate 100 MG Oral Capsule [facility] ([facility]) Hydroxyzine Hydrochloride 50 MG Oral Tablet hydroxyzin e HCl 50 mg tablet hydroxyzine HCl 50 mg tablet completed hydroxyzine hydrochloride 50 MG Oral Tablet [facility] ([facility]) Metoclopramide 5 MG Oral Tablet metoclopramide 5 mg ta blet metoclopramide 5 mg tablet completed metoclopramide 5 MG Oral Tablet [facility] ([facility]) cetirizine hydrochloride 10 MG Oral Tabl et cetirizine 10 mg tablet TAKE ONE TABLET BY MOUTH EVERY DAY cetirizine 10 mg tablet TAKE ONE TABLET BY MOUTH EVERY DAY completed cetirizine hydro chloride 10 MG Oral Tablet [facility] ([facility]) Tab-A-Carlo 400 mcg tablet [id number] compl eted Tab-A-Carlo 400 mcg tablet [facility] ([facility]) quetiapine 50 MG Oral Tablet quetiapine 50 mg tablet quetiapine 50 mg tablet completed quetiapine 50 MG Oral Tablet [facility] ([facility]) quetiapine 25 MG Oral Tablet quetiapine 25 mg tablet quetiapine 25 mg tablet completed quetiapine 25 MG Oral Tablet [facility] ([facility]) Sulfamethoxazole 800 MG / Trimethoprim 1 60 MG Oral Tablet sulfamethoxazole 800 mg-trimethoprim 160 mg tablet sulfamethoxazole 800 mg-trimethoprim 160 mg tablet completed sulfame thoxazole 800 MG / trimethoprim 160 MG Oral Tablet [facility] ([facility]) Ondansetron 4 MG Disintegrating Oral Tab let ondansetron 4 mg disintegrating tablet ondansetron 4 mg disintegrating tablet completed ondansetron 4 MG Disintegrating Oral Tablet [facility] ([facility]) valacyclovir 1000 MG Oral Tablet valacyc lovir 1 gram tablet TAKE ONE TABLET BY MOUTH TWICE A DAY FOR 3 DAYS valacyclovir 1 gram tablet TAKE ONE TABL ET BY MOUTH TWICE A DAY FOR 3 DAYS completed valacyclovir 1000 MG Oral Tablet [facility] ([facility]) Polyethylene Glycol 400 4 MG/ML / Propyl [...] propylene glycol 3 MG/ML Ophthalmic Solution [Systane] [facility] ([facility]) Insurance Providers Payer name Policy type / Coverage type Policy ID Covered alliance party ID Covered alliance party's relationship to shelton Policy Shelton Plan Information [facility] COMMUNITY PLAN MCDO [id number] SP [id number] [facility](MCAID) O [id number] S [id number] [facility] COMMUNITY PLAN MCDO [id number] SP [id number] EMEDNY [id number] SP [id number] [facility]EL [id number] SP [id number] [facility] [id number] SP [id number] [facility] COMMUNITY PLAN [facility] [id number] SP [id number] [facility] COMMUNITY PLAN ANGEL O [id number] Self [id number] [facility] I [id number] Self [id number] Managed Care - [facility] Community Plan P [id number] S [id number] Medicaid S [id number] Managed Care - [facility] Community Plan P [id number] S [id number] EMEDNY [id number] SP [id number] [facility] MEDICAID [id number] Lilia [id number] [facility](MCAID) O [id number] S [id number] [facility] COMMUNITY PLAN XIX [id number] 18 [id number] [facility] COMMUNITY PLAN XIX UNAVAILABLE UNAVAILABLE MEDICAID -O/P EMERGENCY ROOM [id number] ANSI-Medicaid [id number] ANSI-Medicaid [id number] Managed Care - [facility] Community Plan S [id number] S [id number] ANSI-Medicaid [id number] ANSI-Medicaid [id number] ANSI-Medicaid [id number] ANSI-Medicaid [id number] Managed Care - [facility] P [id number] S [id number] COMMERCIAL GENERIC U [id number] Self [id number] [facility] [id number] und efined [id number] ANSI-Medicaid [id number] ANSI-Medicaid [id number] ANSI-Medicaid [id number] ANSI-Medicaid [id number] ANSI-Medicaid [id number] ANSI-Medicaid [id number] ANSI-Medicaid [id number] ANSI-Medicaid [id number] ANSI-Medicaid [id number] ANSI-Medicaid [id number] [facility] COMMUNITY [facility] [id number] SP [id number] MEDICAID [id number] SP [id number] ANSI-Medicaid [id number] ANSI-Medicaid [id number] [facility] (O) [id number] [facility] [id number] ANSI-Medicaid [id number] ANSI-Medicaid [id number] [facility] Health Maintenance Organization (O) [id number] Self [id number] ANSI-Medicaid [id number] ANSI-Medicaid [id number] ANSI-Medicaid [id number] ANSI-Medicaid [id number] ANSI-Medicaid [id number] ANSI-Medicaid [id number] ANSI-Medicaid [id number] ANSI-Medicaid [id number] ANSI-Medicaid [id number] ANSI-Medicaid [id number] [facility] [id number] SP [id number] [facility] [id number] SP [id number] ANSI-Medicaid [id number] ANSI-Medicaid [id number] ANSI-Medicaid [id number] ANSI-Medicaid [id number] [facility] [id number] SP [id number] [facility] [employer] [place] [id number] Self [id number] [facility] Maintenance [employer] (HMO) [id number] Self [id number] [facility] [employer] (HMO) [id number] Self [id number] ANSI-Medicaid [id number] ANSI-Medicaid [id number] [employer] [id number] Self [id number] ANSI-Medicaid [id number] ANSI-Medicaid [id number] [employer] [facility] [place] [id number] SP [id number] [facility] [id number] SP [id number] ANSI-Medicaid [id number] MEDICAID [id number] Self [id number] MEDICAID [id number] Self [id number] MEDICAID [id number] SP [id number] ANSI-Medicaid [id number] ANSI-Medicaid [id number] [facility] COMMUNITY PLAN [facility] [place] [id number] SP [id number] United Healthcare Hmo Commercial [id number] Self [id number] [facility] Hmo Commercial [id number] Self [id number] [facility] Hmo Commercial [id number] Self [id number] [facility] Hmo Commercial [id number] Self [id number] Managed Care - [facility] P [id number] S [id number] Medicaid S [id number] S [id number] [place] -[place]/P UKNOWN 18 UKNOWN [place]Community([facility]) Commercial [id number] Family Dependent [id number] [place]) Commercial [id number] Self [id number] [place]) Commercial [id number] Family Dependent [id number] United/Community([facility]) Commercial [id number] Self [id number] [employer] COMMUNITY PLAN MCDO [id number] SP [id number] UNHC COMMUNITY PLAN MCDO [id number] SP [id number] [place]) Commercial [id number] Family Dependent [id number] [place]) Commercial [id number] Self [id number] UNITED HEALTHCARE [id number] SP [id number] UNITED HEALTHCARE [id number] SP [id number] [place]) Commercial [id number] Family Dependent [id number] [place]) Commercial [id number] Self [id number] [place]) Commercial [id number] Family Dependent [id number] [place]) Commercial [id number] Self [id number] [place]) Commercial [id number] Family Dependent [id number] [facility]) Medicaid [id number] Self [id number] [facility] Community Plan Medigap Part B [id number] Self [id number] Medicaid [place] [id number] [facility] Community Plan Medigap Part B [id number] Self [id number] Medicaid [place] [id number] [facility] Community Plan Medigap Part B Family Dependent Medicaid [place] Self MEDICA[place] [id number] S [id number] MEDICAID M [id number] S [id number] SELF PAY ONLY [id number] [facility](MCAID) O [id number] S [id number] MEDICAID M [id number] Self [id number] Medicaid Dental S [id number] Problems, Conditions, and Diagnoses Code Display Name Description Problem Type Effective Dates Data Source(s) 260552507 Thrombocytopenic disorder Thrombocytopenic Disorder Pr oblem 04/10/2020 12:00:00 AM EST [facility] ([facility]) 137160866 Liver function tests abnormal Liver Function Tests Abn ormal Problem 03/27/2020 12:00:00 AM EST [facility] ([facility]) 473900034 Gastroesophageal reflux disease without esophagitis Gastroesophageal Reflux Disease without Esophagitis Problem 03/27/2020 12:00:00 AM ES T [facility] ([facility]) 744772807 Liver function tests abnormal Liver Function Tests Abn ormal Problem 03/27/2020 12:00:00 AM EST [facility] ([facility]) 075923892 Gastroesophageal reflux disease without esophagitis Gastroesophageal Reflux Disease without Esophagitis Problem 03/27/2020 12:00:00 AM ES T [facility] ([facility]) 62093894 Acute bronchitis Acute Bronchitis Problem 03/11/2020 12 :00:00 AM EST [facility] ([facility]) 77861500 Anxiety Anxiety Problem 03/11/2020 12:00:00 AM ES T [facility] ([facility]) 30498099 Acute bronchitis Acute Bronchitis Problem 03/11/2020 12 :00:00 AM EST [facility] ([facility]) 88561374 Anxiety Anxiety Problem 03/11/2020 12:00:00 AM ES T [facility] ([facility]) 21568265 Acute bronchitis Acute Bronchitis Problem 03/11/2020 12 :00:00 AM EST [facility] ([facility]) 87616876 Anxiety Anxiety Problem 03/11/2020 12:00:00 AM ES T [facility] ([facility]) 82765993 Acute bronchitis Acute Bronchitis Problem 03/11/2020 12 :00:00 AM EST [facility] ([facility]) 21351388 Anxiety Anxiety Problem 03/11/2020 12:00:00 AM ES T [facility] ([facility]) F29 Unspecified psychosis not du e to a 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 02/03/2020 12:00:00 AM EST [facility] ([facility]) L97.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 Non-pressure chronic ulcer of other part of left foot with unspecified severity 09/16/2019 11:10:[address] [facility] 48304645 Allergic rhinitis, unspecified Allergic rhinitis, unsp ecified 08/29/2019 03:43:[address] [facility] 420042605 Mild intermittent asthma, uncomplicated Mild intermittent asthma, uncomplicated 08/29/2019 03:43:[address] [facility] R10.9 Unspecified abdominal pain Unspecified abdominal pain Diagnosis 12/08/2019 11:05:00 AM EDT [facility] Flank Pain Flank Pain Diagnosis 12/08/2019 11:05:00 AM ED T [facility] left flank pain left flank pain Diagnosis 12/08/2019 11:0 5:00 AM EDT [facility] Kidney; hip Kidney; hip Diagnosis 12/06/2019 04:36:00 PM EDT [facility] J45.21 Mild intermittent asthma with (acute) ex acerbation Mild intermittent asthma with (acute) exacerbation Diagnosis 05/18/2019 09:35:00 AM EST [facility] Cough Cough Diagnosis 05/18/2019 09:35:00 AM T [facility] cough, fever cough, fever Diagnosis 05/18/2019 09:35:00 A M EST [facility] R10.84 Generalized abdominal pain Generalized abdominal pain Diagnosis 04/08/2019 07:46:00 PM EST [facility] Abdominal Cramping Abdominal Cramping Diagnosis 0 07:46:00 PM EST [facility] Complains of abdominal pain after eating chicken at lunch. Complains of abdominal pain after eating chicken at lunch. Diagnosis 04/08/19 20 07:46:00 PM EST [facility] Surgeries/Procedures Procedure Description Date Indications Data Source(s) US, liver 04/03/2020 12:00:00 AM EST [place] DE LA CRUZ ([facility]) Psychiatric Diagnostic Evaluation (Non-Medical) 02/03/2020 12:00:00 AM EST - 02/03/2020 12:00:00 AM EST [facility] ([facility]) Psychiatric Diagnostic Evaluation (Non-Medical) 2019 12:00:00 AM EST [facility] ([facility]) Psychiatric Diagnostic Evaluation (Non-Medical) 01/15/2020 12:00:00 AM EST - 01/15/2020 12:00:00 AM EST [facility] ([facility]) Psychiatric Diagnostic Evaluation (Non-Medical) 2019 12:00:00 AM EST [facility] ([facility]) Psychiatric Diagnostic Evaluation (Non-Medical) 01/14/2020 12:00:00 AM EST - 01/14/2020 12:00:00 AM EST [facility] ([facility]) Psychiatric Diagnostic Evaluation (Non-Medical) 2019 12:00:00 AM EST [facility] ([facility]) CT ABDOMEN & PELVIS W/O CONTRAST MATERIAL CT ABDOMEN PELVIS WO IV CONTRAST STAT 12/08/2019 11:40 AM EDT 12/08/2019 11:40:42 AM EDT [facility] DIP STICK/TABLET REAGENT AUTO MICROSCOPY URINALYSIS STAT 12/08/2019 11:18 AM EDT 12/08/2019 11:18:00 AM EDT [facility] DESTRUCTION BENIGN LESIONS UP TO 14 08/30/2019 12:00:0 0 AM EDT [facility] DESTRUCTION BENIGN LESIONS UP TO 14 08/15/2019 12:00:0 0 AM EDT [facility] XR CHEST 2 VIEWS FRONT PA AND LAT XR CHEST 2 VIEWS FRONT PA AND LAT STAT 05/18/2019 10:07 AM EST 05/18/2019 03:07:25 PM EST [facility] IAADIADOO INFLUENZA INFLUENZA ANTIGEN STAT 05/18/2019 9:[address] 05/18/2019 02:49:[address] [facility] [address] ABDOEN & PELVIS W/CONTRAST MATERIAL CT ABDOMEN PELVIS W IV C ONTRAST STAT 04/08/2019 10:01 PM EST 04/09/2019 03:01:06 AM EST [facility] DESTRUCTION BENIGN LESIONS UP TO 14 03/15/2019 12:00:0 0 AM EST [facility] ([facility] Results ID Date Data Source [id number] 03/27/2020 11:50:00 AM EST [facility] ([facility]) Name Value Range Interpretation Code Description Data Amy rce(s) Supporting Document(s) glucose, fasting 89 mg/dL 70-100 normal Glucose, [facility] ([facility]) glomerular filtration rate > 60.0 >60 normal Glomerula r Filtration Rate [facility] ([facility]) creatinine for GFR 0.90 mg/dL 0.70-1.30 normal Creatinine for GF R [facility] ([facility]) blood urea nitrogen 11 mg/dL 7-18 normal Blood Urea Nitro gen [facility] ([facility]) sodium level 140 mEq/L 136-145 normal Sodium Level [facility] ([facility]) chloride level 107 mEq/L 98-107 normal Chloride Level [facility] ([facility]) carbon dioxide level 26 mEq/L 21-32 normal Carbon Dioxide Level [facility] ([facility]) potassium serum 3.7 mEq/L 3.5-5.1 normal Potassium Serum ATHE ([facility]) calcium level 8.8 mg/dL 8.5-10.1 normal Calcium Level [facility] ( [facility]) AST/SGOT 15 U/L 7-37 normal AST/SGOT [facility] ([facility]) anion gap 7 mEq/L 8-16 Below low normal Anion Gap [facility] ( [facility]) ALT/SGPT 22 U/L 12-78 normal ALT/SGPT [facility] ([facility]) alkaline phosphatase 48 U/L 45-117 normal Alkaline Phosph atase [facility] ([facility]) bilirubin,total 0.7 mg/dL 0.2-1.0 normal Bilirubin,total ATHE ([facility]) total protein 7.1 gm/dL 6.4-8.2 normal Total Protein [facility] ( [facility]) albumin/globulin ratio normal Albumin/globu maría Ratio [facility] ([facility]) albumin 4.5 gm/dL 3.2-5.2 normal Albumin [facility] ([facility]) ID Date Data Source [id number] 03/27/2020 11:50:00 AM EST PINYK ([facility]) Name Value Range Interpretation Code Description Data Amy rce(s) Supporting Document(s) red blood count 5.29 10 4.30-6.10 normal Red Blood Count ATHE NA ([facility]) white blood count 6.2 10 4.0-10.0 normal White Blood Count [facility] ([facility]) hemoglobin 14.5 g/dL 13.5-17.5 normal Hemoglobin [facility] ([facility]) hematocrit 41.9 % 42.0-52.0 Below low normal Hematocrit [facility] ( [facility]) mean corpuscular volume 79.2 fL 80.0-96.0 Below low normal Mean Corpuscular Volume [facility] ([facility]) mean corpuscular hemoglobin 27.4 pg 27.0-33.0 normal Mean Corpuscular Hemoglobin [facility] ([facility]) mean corpuscular HGB conc 34.6 g/dL 32.0-36.5 normal Mean Corpu scular HGB Conc [facility] ([facility]) platelet count, automated 135 10 150-450 Below low va l Platelet Count, Automated [facility] ([facility]) red cell distribution width 13.6 % 11.5-14.5 normal Red Cell Distribution Width [facility] ([facility]) neutrophils % 70.7 % 36.0-66.0 Above high normal Neutrophils % A THENA ([facility]) lymph % 19.8 % 24.0-44.0 Below low normal Lymph % [facility] ( [facility]) mono % 4.4 % 0.0-5.0 normal Pine % [facility] ([facility]) eos % 3.4 % 0.0-3.0 Above high normal Eos % [facility] ([facility]) immature granulocyte % 1.1 % 0-3.0 normal Immature Gran ulocyte % [facility] ([facility]) baso % 0.6 % 0.0-1.0 normal Baso % [facility] ([facility]) nucleated red blood cell % 0.0 % 0-0 normal Nucleated Red Blood Cell % [facility] ([facility]) lymph # 1.2 10 1.5-5.0 Below low normal Lymph # [facility] ( [facility]) neutrophils # 4.4 10 1.5-8.5 normal Neutrophils # [facility] ( [facility]) mono # 0.3 10 0.0-0.8 normal Pine # [facility] ([facility]) eos # 0.2 10 0.0-0.5 normal Eos # [facility] ([facility]) baso # 0.0 10 0.0-0.2 normal Baso # [facility] ([facility]) ID Date Data Source [id number] 03/11/2020 11:00:00 AM EST [facility] ([facility]) Name Value Range Interpretation Code Description Data Amy rce(s) Supporting Document(s) white blood count 12.0 10 4.0-10.0 Above high normal White Blood Count [facility] ([facility]) hematocrit 47.9 % 42.0-52.0 normal Hematocrit [facility] ([facility]) hemoglobin 16.6 g/dL 13.5-17.5 normal Hemoglobin [facility] ([facility]) red blood count 6.17 10 4.30-6.10 Above high normal Red Blood Cou nt [facility] ([facility]) mean corpuscular volume 77.6 fL 80.0-96.0 Below low normal Mean Corpuscular Volume [facility] ([facility]) mean corpuscular hemoglobin 26.9 pg 27.0-33.0 Below low nor mal Mean Corpuscular Hemoglobin [facility] ([facility]) mean corpuscular HGB conc 34.7 g/dL 32.0-36.5 normal Mean Corpu scular HGB Conc [facility] ([facility]) red cell distribution width 13.2 % 11.5-14.5 normal Red Cell Distribution Width [facility] ([facility]) platelet count, automated 141 10 150-450 Below low va l Platelet Count, Automated [facility] ([facility]) neutrophils % 92.6 % 36.0-66.0 Above high normal Neutrophils % A THENA ([facility]) lymph % 5.8 % 24.0-44.0 Below low normal Lymph % [facility] ( [facility]) mono % 0.6 % 0.0-5.0 normal Pine % [facility] ([facility]) eos % 0.1 % 0.0-3.0 normal Eos % [facility] ([facility]) baso % 0.2 % 0.0-1.0 normal Baso % [facility] ([facility]) immature granulocyte % 0.7 % 0-3.0 normal Immature Gran ulocyte % [facility] ([facility]) nucleated red blood cell % 0.0 % 0-0 normal Nucleated Red Blood Cell % [facility] ([facility]) mono # 0.1 10 0.0-0.8 normal Pine # [facility] ([facility]) baso # 0.0 10 0.0-0.2 normal Baso # [facility] ([facility]) lymph # 0.7 10 1.5-5.0 Below low normal Lymph # [facility] ( [facility]) neutrophils # 11.1 10 1.5-8.5 Above high normal Neutrophils # A THENA ([facility]) eos # 0.0 10 0.0-0.5 normal Eos # [facility] ([facility]) ID Date Data Source [id number] 03/11/2020 11:00:00 AM EST [facility] ([facility]) Name Value Range Interpretation Code Description Data Amy rce(s) Supporting Document(s) glucose, fasting 137 mg/dL 70-100 Above high normal Glucose, Fas ting [facility] ([facility]) blood urea nitrogen 16 mg/dL 7-18 normal Blood Urea Nitro gen [facility] ([facility]) glomerular filtration rate > 60.0 >60 normal Glomerula r Filtration Rate [facility] ([facility]) creatinine for GFR 0.99 mg/dL 0.70-1.30 normal Creatinine for GF R [facility] ([facility]) sodium level 137 mEq/L 136-145 normal Sodium Level [facility] ([facility]) potassium serum 4.1 mEq/L 3.5-5.1 normal Potassium Serum ATHE NA ([facility]) carbon dioxide level 22 mEq/L 21-32 normal Carbon Dioxide Level [facility] ([facility]) chloride level 107 mEq/L 98-107 normal Chloride Level [facility] ([facility]) anion gap 8 mEq/L 8-16 normal Anion Gap [facility] ([facility]) calcium level 9.6 mg/dL 8.5-10.1 normal Calcium Level [facility] ( [facility]) ALT/SGPT 15 U/L 12-78 normal ALT/SGPT [facility] ([facility]) AST/SGOT 11 U/L 7-37 normal AST/SGOT [facility] ([facility]) total protein 8.4 gm/dL 6.4-8.2 Above high normal Total Protein A THENA ([facility]) alkaline phosphatase 53 U/L 45-117 normal Alkaline Phosph atase [facility] ([facility]) bilirubin,total 1.2 mg/dL 0.2-1.0 Above high normal Bilirubin,tot al [facility] ([facility]) albumin/globulin ratio normal Albumin/globu maría Ratio [facility] ([facility]) albumin 5.4 gm/dL 3.2-5.2 Above high normal Albumin [facility] ([facility]) ID Date Data Source [id number] 03/11/2020 11:00:00 AM EST [facility] ([facility]) Name Value Range Interpretation Code Description Data Amy rce(s) Supporting Document(s) hemoglobin 16.6 g/dL 13.5-17.5 normal Hemoglobin [facility] ([facility]) red blood count 6.17 10 4.30-6.10 Above high normal Red Blood Cou nt [facility] ([facility]) white blood count 12.0 10 4.0-10.0 Above high normal White Blood Count [facility] ([facility]) hematocrit 47.9 % 42.0-52.0 normal Hematocrit [facility]) mean corpuscular volume 77.6 fL 80.0-96.0 Below low normal Mean Corpuscular Volume [facility] ([facility]) red cell distribution width 13.2 % 11.5-14.5 normal Red Cell Distribution Width [facility] ([facility]) mean corpuscular HGB conc 34.7 g/dL 32.0-36.5 normal Mean Corpu scular HGB Conc [facility] ([facility]) mean corpuscular hemoglobin 26.9 pg 27.0-33.0 Below low nor mal Mean Corpuscular Hemoglobin [facility] ([facility]) mono % 0.6 % 0.0-5.0 normal Pine % [facility] ([facility]) lymph % 5.8 % 24.0-44.0 Below low normal Lymph % [facility] ( [facility]) neutrophils % 92.6 % 36.0-66.0 Above high normal Neutrophils % [facility] platelet count, automated 141 10 150-450 Below low va l Platelet Count, Automated [facility] ([facility]) baso % 0.2 % 0.0-1.0 normal Baso % [facility] ([facility]) nucleated red blood cell % 0.0 % 0-0 normal Nucleated Red Blood Cell % [facility] ([facility]) neutrophils # 11.1 10 1.5-8.5 Above high normal Neutrophils # [facility]) eos % 0.1 % 0.0-3.0 normal Eos % [facility] ([facility]) immature granulocyte % 0.7 % 0-3.0 normal Immature Gran ulocyte % [facility] ([facility]) mono # 0.1 10 0.0-0.8 normal Pine # [facility] ([facility]) lymph # 0.7 10 1.5-5.0 Below low normal Lymph # [facility] ( [facility]) eos # 0.0 10 0.0-0.5 normal Eos # [facility] ([facility]) baso # 0.0 10 0.0-0.2 normal Baso # [facility] ([facility]) ID Date Data Source [id number] 03/11/2020 11:00:00 AM EST [facility] ([facility]) Name Value Range Interpretation Code Description Data Amy rce(s) Supporting Document(s) creatinine for GFR 0.99 mg/dL 0.70-1.30 normal Creatinine for GF R [facility] ([facility]) glucose, fasting 137 mg/dL 70-100 Above high normal Glucose, Fas ting [facility] ([facility]) blood urea nitrogen 16 mg/dL 7-18 normal Blood Urea Nitro gen [facility] ([facility]) sodium level 137 mEq/L 136-145 normal Sodium Level [facility] ([facility]) potassium serum 4.1 mEq/L 3.5-5.1 normal Potassium Serum ATH NA ([facility]) glomerular filtration rate > 60.0 >60 normal Glomerula r Filtration Rate [facility] ([facility]) calcium level 9.6 mg/dL 8.5-10.1 normal Calcium Level [facility] ( [facility]) chloride level 107 mEq/L 98-107 normal Chloride Level [facility] ([facility]) carbon dioxide level 22 mEq/L 21-32 normal Carbon Dioxide Level [facility] ([facility]) anion gap 8 mEq/L 8-16 normal Anion Gap [facility] ([facility]) AST/SGOT 11 U/L 7-37 normal AST/SGOT [facility] ([facility]) bilirubin,total 1.2 mg/dL 0.2-1.0 Above high normal Bilirubin,tot al [facility] ([facility]) alkaline phosphatase 53 U/L 45-117 normal Alkaline Phosph atase [facility] ([facility]) ALT/SGPT 15 U/L 12-78 normal ALT/SGPT [facility] ([facility]) albumin/globulin ratio normal Albumin/globu maría Ratio [facility] ([facility]) total protein 8.4 gm/dL 6.4-8.2 Above high normal Total Protein A THENA ([facility]) albumin 5.4 gm/dL 3.2-5.2 Above high normal Albumin [facility] ([facility]) ID Date Data Source [id number] 03/10/2020 09:00:00 AM EST [facility] Name Value Range Interpretation Code Description Data Amy rce(s) Supporting Document(s) SARS-CoV-2 (COVID 19) [facility] This lab was ordered by [facility] a nd reported by [facility]. ID Date Data Source [id number] 03/06/2020 07:48:00 AM EST [facility] Name Value Range Interpretation Code Description Data Amy rce(s) Supporting Document(s) SARS coronavirus 2 RNA [facility] This lab was ordered by [facility] and reported by [facility]. ID Date Data Source [id number] 12/08/2019 12:06:53 PM EDT [facility] Name Value Range Interpretation Code Description Data Amy rce(s) Supporting Document(s) [employer] Aut[employer] Interface Message Text [facility] HISTORY OF PRESENT ILLNESS12/08/2019, 11: 25.History Provided by: patientChief ComplaintPatient presents with Flank Pain Tylor Galindo is a 19 y.o. male patient presenting to the ED for left flankpain that started yesterday. No fevers, No N/V, no abd pain.PCP: Ran Collins MDNo [facility].REVIEW OF SYSTEMSReview of SystemsConstitutional: [...] file Gets together: Not on file Attends [employer] service: Not on file Active member of [...] doc umented above. Will .Time: 1206On re-exam, ALESSIA VSS.ED ORDERSOrders Placed This EncounterProcedures CT Abdomen Pelvis Without IV Contrast UrinalysisMedicationsoxycodone-acetaminophen (PERCOCET) 5-325 MG per tablet 1 tablet (1 tablet OralGiven 12/08/19 1120)ibuprofen (ADVIL,MOTRIN) tablet 800 mg (800 mg Oral Given 12/08/19 1120)LABORATORY RESULTSResults for orders placed or performed during the hospital encounter of 12/08/19UrinalysisResult Value Ref Range Color, UA Yellow Yellow Clarity, UA Clear Clear Specific [place], UA 1.025 1.005 - 1.025 pH, UA [...] Gardner, DO12/08/19 1206 ID Date Data Source [id number] 12/08/2019 11:52:19 AM [facility] ORIGINAL: Emilee Dec 08, 2019 11:52 AM [...] kidneyagain noted.Note: This report was dictated utilizing [employer] voice recognition computer program. Missing smallwords are common, as are minor grammatical and syntax errors. Feel free to contact me if anythingrequires clarification. Arpit Hill MD. Name Value Range Interpretation Code Description Data Amy rce(s) Supporting Document(s) ID Date Data Source [id number] 12/08/2019 11:30:00 AM EDT [facility] Name Value Range Interpretation Code Description Data [facility] rce(s) Supporting Document(s) COLOR Yellow Yellow [facility] CLARITY Clear Clear [facility] SPECIFIC GRAVITY UA 1.025 1.005-1.025 [facility] ealt PH UA 6.5 5.0-7.5 [facility] PROTEIN UA Negative Negative [facility] GLUCOSE UA Negative Negative [facility] KETONES URINE 1+ Negative Abnormal (applies to non-numeric results) [facility] BILIRUBIN UA 1+ Negative Abnormal (applies to non-numeric r esults) [facility] BLOOD UA Negative Negative [facility] NITRITE UA Negative Negative [facility] UROBILINOGEN UA 0.2 Eu/dL <=1.9 [facility] LEUKOCYTE ESTERASE UA Negative Negative [facility] ealth SQUAMOUS EPITHELIAL UA Few /HPF None Seen, Rare Abnormal (applies to non-numeric results) [facility] This is a corrected result for Squamous Epithelial. Previous result was <null> on 12/08/2019 at 1125 EDT BACTERIA UA Rare /HPF None Seen Abnormal (applies to non-numeric re sults) [facility] This is a corrected result for Bacteria. Previous result was <null> on 12/08/2019 at 1125 EDT MUCOUS UA Few /HPF None Seen Abnormal (applies to non-numeric res ults) [facility] This is a corrected result for Mucous. P revious result was <null> on 12/08/2019 at 1125 EDT ID Date Data Source [id number] 12/08/2019 11:12:12 AM EDT [facility] Name Value Range Interpretation Code Description Data Amy rce(s) Supporting Document(s) [employer] Interface Message Text [facility] Patient ambulatory to ED with left flank pain and left abdominal pain. Patientwith history of TAR syndrome. Patient states it feels like his kidney ispushing forward and is very enflamed. Patient reports feeling constipated andnot eating well, has lost 10lbs. ID Date Data Source [id number] 09/16/2019 10:43:[address] [facility] Measurements & CalculationsHeight: 62 inches 157.48 [...] (ER) or urgent care clinic? No - [facility] left side chest pain, coughEmergency room [...] TARS syndrome. Has been to see the [facility] on [place]. 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 He has a rare and complicated genetic disorder which is well beyond my scope of practice so I think this is important.Gastro- esophageal reflux disease without esophagitis (HLK40-D20.9) Assessment: Instructions: Chronic and persistent abdominal pain.Encouraged to follow up with Dr. Ruiz for this.Patient Instructions/Care Plan: Non-pressure chronic ulcer of other part of left foot with unspecified severity: Refer to Wound Clinic.Radial aplasia-thrombocytopenia syndrome: Refe to heme/onc for low platelets.I would also like him to follow up with the [facility] and whoever they recommend for follow [...] 0.083% INHALATION NEBULIZATION SOLUTIONAllergies:PENICILLIN (Moderate)AMOXICILLIN (Moderate)Orders:Hematology Consult [CPT-88567] Other Referral [[id number]] Adult - Ofc Vst, EST, Level III [CPT-15443] Name Value Range Interpretation Code Description Data Amy rce(s) Supporting Document(s) ID Date Data Source [id number] 09/09/2019 11:54:[address] [facility] Labs In-House Blood TestsDate/Time Colle cted: September 09, 2019 11:55 AMDate/Time Received: September 09, 2019 11:55 AMTest Result Reference Range Normal ValueComments: collected blood from patient left ac , patient tolerated well. Erica Styles INSTRUMENT ROOM TECHNICIAN, September 09, 2019 11:55 AMAssessment & Plan Orders:34731-[id number] Vst-Est Level I [CPT-28468] 25101 - Venipuncture [CPT-32961] Name Value Range Interpretation Code Description Data Amy rce(s) Supporting Document(s) ID Date Data Source [id number] 09/09/2019 11:36:[address] [facility] Name Value Range Interpretation Code Description Data Amy rce(s) Supporting Document(s) HCT 41.9 % 42.0-52.[address] [facility] HGB 14.6 g/dL 13.5-17.5 [facility] MCH 34.8 G/DL pg 32.0-36.5 [facility] MCHC 27.3 PG % 27.0-33.0 [facility] PLATELETS 133 10 10*3/mm3 150-[address] [facility] RBC 5.35 10 10*6/mm3 4.30-6.10 [facility] RDW 13.5 % 11.5-14.5 [facility] WBC TOTAL 5.3 4.0-10.[address] [facility] ID Date Data Source [id number] 09/09/2019 11:36:[address] [facility] Name Value Range Interpretation Code Description Data Amy rce(s) Supporting Document(s) BG FASTING 93 mg/dL 70-100 N [facility] ID Date Data Source [id number] 08/29/2019 03:10:43 PM EDT [facility] Measurements & CalculationsHeight: 62 [...] YesLoss of smell? YesLoss of taste? YesDetails: [employer] 07/2019 covid test negativeSmoking, Tobacco, Vaping or Smoke Exposure StatusSmoke Status: never smokerTobacco Use: NoDo you vape? YesCessation advice given: YesWhat is in your device? drugsFrequency: former vaperHealthcare HistorySince your last office visit...Have you been admitted to the hospital? NoHave you been to an emergency room (ER) or urgent care clinic? Yes - [facility] left side chest pain, coughEmergency room [...] chest pain when breathing.Pt was working in [employer] 03/2019-07/2019. States he feels this began when he returned to [place]. Admits to postnasal drip and nonproduc tive cough. Denies fever, shortness of breath, wheezing. Transitions of Care InboundProblem ReviewProblem List was reviewed and/or updated during this visit.Medication Reconciliation & ReviewMedication List was reviewed and/or updated during this visit, including review of any kiud-qzk-nuunmsz medications, herbal therapies, and/or supplements.Allergy ReviewAllergy List [...] PoorAssessment & Plan Problems:Added: Allergic rhinitis, unspecified (TPV26-C00.9) Assessment: Instructions: Suspect symptoms are secondary to untreated allergies and asthma. Avoid allergen exposure, consider an air purifier in your housing to help filter allergens out of the air. If symptoms continue, return for recheck and further treatment.Mild intermittent asthma, uncomplicated (BIU64-E54.20) Assessment: Instructions: As above. Sent for albuterol rescue inhaler as needed.Removed:Unspecified asthma with (acute) exacerbation (UXT42-P61.901), Acute bronchitis, unspecified (OIC40-L75.9), Dysphagia (ICD-787.20) (ICD10- R13.10), Cellulitis of left finger (ICD-681.00) (NDD74-A17.012)Patient Instructions/Care Plan: Allergic rhinitis- unspecified: Suspect symptoms [...] (Moderate)Orders:Adult - Ofc Vst, EST, Level III [CPT-97506] Follow-Up Return to clinic: as needed Additional Follow-Up: annual PEClinical Visit Summary CompletedMedications:ALBUTEROL SULFATE HFA 108 (90 BASE) MCG/ACT INHALATION AEROSOL SOLUTION (ALBUTEROL SULFATE) Take 2 puffs oral inhalation q 4 hrs prn wheezing or shortness of breath #1[Inhaler] x 3 Route:INHALATION Entered and Authorized by: Francisco BROWN Method used: Electronically to [facility] (retail) [address] [place] [address] Note to Pharmacy: Route: INHALATION; Indications: MILD INTERMITTENT ASTHMA, UNCOMPLICATED RxID: [id number] 10 MG ORAL TABLET (CETIRIZINE HCL) Take 1 tablet po daily #90[Tablet] x 3 Route:ORAL Entered and Authorized by: Francisco BROWN Method used: Electronically to [facility] (retail) [address] [place] [address] Note to Pharmacy: Route: ORAL; Indications: MILD INTERMITTENT ASTHMA, UNCOMPLICATED;ALLERGIC RHINITIS, UNSPECIFIED RxID: [id number] CHLORHEXIDINE GLUCONATE 0.12 % SOLN (CHLORHEXIDINE GLUCONATE) Rinse for 1 minute with 10mL before bed #1[Bottle] x 0 Route:MOUTH/THROAT Authorized by: Negrita Mohamud DMD Method used: Electronically to [facility] (retail) [address] [facility] [address] [place] [address] RxID: [id number] signed by Francisco BROWN on 09/09/2019 at 9:10 AM Name Value Range Interpretation Code Description Data Aym rce(s) Supporting Document(s) ID Date Data Source [id number] 05/18/2019 10:44:11 AM EST [employer] Name Value Range Interpretation Code Description Data Amy rce(s) Supporting Document(s) [employer] Interface Message Text [facility] There were no vitals taken for this visi t.PCP No primary care provider on file.HistoryChief ComplaintPatient presents with Cough FeverC/O cough, congestion and runny nose for 4 days. 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 Lungs have scattered wheezes all [...] questions.Clinical Impression: Mild intermittent asthma with exacerbationDisposition: HayleePedro moura, NP05/18/19 1044 ID Date Data Source [id number] 05/18/2019 10:25:34 AM EST [facility] ORIGINAL: Sat May 18, 2019 10:25 AM by King Rajput MDEXAMINATION:XR CHEST 2 VIEWS FRONT PA AND LATHISTORY:cough for 1 weekCOMPARISON:NONETECHNIQUE:PA and Lateral Chest X-raysFINDINGS:There is no focal pulmonary opacity. The cardiomediastinal silhouette is within normal limits. Nopneumothorax or pleural effusion. Bones are unremarkable.IMPRESSION:No acute cardiopulmonary abnormality. Name Value Range Interpretation Code Description Data Amy rce(s) Supporting Document(s) ID Date Data Source [id number] 05/18/2019 10:15:00 AM [employer] Name Value Range Interpretation Code Description Data Amy rce(s) Supporting Document(s) INFLUENZA A ANTIGEN Negative Negative [facility] IN[facility] B ANTIGEN Negative Negative [facility] ID Date Data Source [id number] 05/18/2019 09:39:26 AM [employer] Name Value Range Interpretation Code Description Data Amy rce(s) Supporting Document(s) [employer] Interface Message Text [facility] Patent ambulatory to ED with strong, faheem sh cough and runny nose. Patient reportsCough x 4 days, with post nasal drip triggering the cough. Pain in his chestand nausea. 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 ID Date Data Source [id number] 04/08/2019 10:50:07 PM EST [employer] Name Value Range Interpretation Code Description Data Amy rce(s) Supporting Document(s) [employer] Interface Message Text [facility] Patient discharged from the ED. Pt. Cari es to follow up with PMD and to returnto the ED if needed. ID Date Data Source [id number] 04/08/2019 10:39:00 PM EST [employer] Name Value Range Interpretation Code Description Data Amy rce(s) Supporting Document(s) [employer] Interface Message Text [facility] I called [employer] [facility] and notified them that patient is being discharged. Will awaittransportation to arrive. ID Date Data Source [id number] 04/08/2019 10:28:28 PM EST [facility] Name Value Range Interpretation Code Description Data [facility] rce(s) Supporting Document(s) [employer] Interface Message Text [facility] BP 164/80 (BP Location: Left arm, Patien [...] unspecified vomiting typeDisposition: Discharge in NAD with MaribellKeyur, NP04/08/198 ID Date Data Source [id number] 04/08/2019 10:18:[address] [facility] ORIGINAL: MonApr 08, 2019 10:18 PM by [...] rce(s) Supporting Document(s) ID Date Data Source [id number] 04/11/2019 07:57:00 AM EST [facility] Name Value Range Interpretation Code Description Data Amy rce(s) Supporting Document(s) CULTURE No Growth in 2 days [facility] ID Date Data Source [id number] 04/09/2019 08:17:00 AM EST [employer] Name Value Range Interpretation Code Description Data Amy rce(s) Supporting Document(s) COLOR Yellow Yellow [facility] CLARITY Clear Clear [facility] SPECIFIC GRAVITY UA 1.025 1.005-1.025 [facility] PH UA 6.0 5.0-7.5 [facility] PROTEIN UA Negative Negative [facility] GLUCOSE UA Negative Negative [facility] KETONES URINE Negative Negative [facility] BILIRUBIN UA Negative Negative [facility] BLOOD UA Negative Negative [facility] NITRITE UA Negative Negative [facility] UROBILINOGEN UA 0.2 Eu/dL <=1.9 [facility] LEUKOCYTE ESTERASE UA Trace Negative Abnormal (applies t o non-numeric results) [facility] MICRO? Yes [facility] SQUAMOUS EPITHELIAL UA Few /HPF None Seen, Rare Abnormal (applies to non-numeric results) [facility] WBC UA 0-1 /HPF 0-1 [facility] BACTERIA UA 1+ /HPF None Seen Abnormal (applies to non-numeric re sults) [facility] AMORPHOUS CRYSTAL UA Many /HPF None Seen Abnormal (a pplies to non-numeric results) [facility] ID Date Data Source [id number] 04/08/2019 10:08:21 PM EST [employer] Name Value Range Interpretation Code Description Data Amy rce(s) Supporting Document(s) [employer] Interface Message Text [facility] Patient arrived from ED. Consent for IV [...] pending radiologist report. ID Date Data Source [id number] 04/08/2019 09:28:30 PM EST [facility] Name Value Range Interpretation Code Description Data Amy rce(s) Supporting Document(s) [employer] Interface Message Text [facility] Patient is resting comfortably. Drinking CT contrast slowly. ID Date Data Source [id number] 04/09/2019 07:43:00 AM EST [facility] Name Value Range Interpretation Code Description Data Amy rce(s) Supporting Document(s) WBC 15.9 10^3/L 4.5-13.0 Above high normal [facility] RBC 5.62 10^6/L 4.70-6.00 [facility] HEMOGLOBIN 16.1 g/dL 13.5-17.5 [facility] HEMATOCRIT 43.2 % 41.0-53.0 [facility] MCV 76.9 fL 80.0-100.0 Below low normal [facility] MCH 28.6 pg 26.0-34.0 [facility] MCHC 37.3 g/dL 31.0-37.0 Above high normal [facility] RDW [facility] Not performed PLATELET COUNT 118 10^3/L 150-400 Below low normal [facility] ID Date Data Source [id number] 04/09/2019 07:42:00 AM EST [facility] Name Value Range Interpretation Code Description Data Amy rce(s) Supporting Document(s) SODIUM 143 mEq/L 136-145 [facility] POTASSIUM 3.8 mEq/L 3.5-5.1 [facility] CHLORIDE 106 mEq/L 98-107 [facility] CO2 23 mEq/L 21-32 [facility] BLOOD UREA NITROGEN 15 mg/dL 7-18 [facility] GLUCOSE 122 mg/dL 74-106 Above high normal [facility] CALCIUM 9.3 mg/dL 8.5-10.1 [facility] CREATININE 0.70 mg/dL 0.60-1.30 [facility] ANION GAP 14 mEq/L 5-15 [facility] EGFR >=60.0 [facility] ealt EGFR NON >=60.0 [facility] et [facility] ID Date Data Source [id number] 04/08/2019 07:51:05 PM EST [facility] Name Value Range Interpretation Code Description Data Amy rce(s) Supporting Document(s) [employer] Interface Message Text [facility] Assessment has been completed. VS as not ed. See triage note and assessmentsheet. ID Date Data Source [id number] 04/08/2019 07:47:[address] [facility] Name Value Range Interpretation Code Description Data Amy rce(s) Supporting Document(s) [employer] Interface Message Text [facility] Complains of abdominal pain after eating chicken at lunch. 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 is moving to [employer] Negrita BELL by steve (03/14/2019 10:53 [...] leted Unknown if ever smoked [facility] ([facility]) Smoking 01/15/2020 12:00:00 AM EST Unknown if ever smoked comp leted Unknown if ever smoked [facility] ([facility]) Smoking 01/14/2020 12:00:00 AM EST Unknown if ever smoked comp leted Unknown if ever smoked [facility] ([facility]) Alcohol intake 12/08/2019 12:00:00 AM EDT Lifetime non-drinker (findi ng) [facility] Tobacco smoking status [facility] 12/08/2019 12:00:00 AM EDT Never smoker [facility] History SDOH Alcohol Frequency 05/18/2019 12:00:00 AM EST 1 [facility] Alcohol intake 05/18/2019 12:00:00 AM EST Never [facility] Tobacco smoking status [facility] 05/18/2019 12:00:00 AM EST Never smoker [facility] Tobacco smoking status [facility] 04/08/2019 12:00:00 AM EST Unknown if e tash smoked [facility] Vital Signs ID Date Data Source UNK Name Value Range Interpretation Code Description Data Source(s) Diastolic blood pressure 77 mm[Hg] 77 mm[Hg] PINK[facility] ([facility]) Body weight 1656 [oz_av] 1656 [oz_av] [facility] ([facility]) Systolic blood pressure 108 mm[Hg] 108 mm[Hg] A THENA ([facility]) Body mass index (BMI) [Ratio] 18.9 kg/m2 18.9 k g/m2 [facility] ([facility]) Body height 62 [in_i] 62 [in_i] [facility] ([facility]) Body weight 1622 [oz_av] 1622 [oz_av] [facility] ([facility]) Systolic blood pressure 102 mm[Hg] 102 mm[Hg] A [facility] ([facility]) Body mass index (BMI) [Ratio] 18.5 kg/m2 18.5 k g/m2 [facility] ([facility]) Body height 62 [in_i] 62 [in_i] [facility] ([facility]) Diastolic blood pressure 70 mm[Hg] 70 mm[Hg] [facility] ([facility]) Body weight 1622 [oz_av] 1622 [oz_av] [facility] ([facility]) Systolic blood pressure 102 mm[Hg] 102 mm[Hg] A [facility] ([facility]) Body mass index (BMI) [Ratio] 18.5 kg/m2 18.5 k g/m2 [facility] ([facility]) Body height 62 [in_i] 62 [in_i] [facility] ([facility]) Diastolic blood pressure 70 mm[Hg] 70 mm[Hg] [facility] ([facility]) Body weight 1544 [oz_av] 1544 [oz_av] [facility] ([facility]) Systolic blood pressure 141 mm[Hg] 141 mm[Hg] [facility] Body mass index (BMI) [Ratio] 17.6 kg/m2 17.6 k g/m2 [facility] ([facility]) Body height 62 [in_i] 62 [in_i] [facility] ([facility]) Diastolic blood pressure 85 mm[Hg] 85 mm[Hg] [facility] ([facility]) Body weight 1544 [oz_av] 1544 [oz_av] [facility] ([facility]) Systolic blood pressure 141 mm[Hg] 141 mm[Hg] A [facility] ([facility]) Body mass index (BMI) [Ratio] 17.6 kg/m2 17.6 k g/m2 [facility] ([facility]) Body height 62 [in_i] 62 [in_i] [facility] ([facility]) Diastolic blood pressure 85 mm[Hg] 85 mm[Hg] [facility] ([facility]) Body weight 1544 [oz_av] 1544 [oz_av] [facility] ([facility]) Systolic blood pressure 141 mm[Hg] 141 mm[Hg] A THENA ([facility]) Body mass index (BMI) [Ratio] 17.6 kg/m2 17.6 k g/m2 [facility] ([facility]) Body height 62 [in_i] 62 [in_i] [facility] ([facility]) Diastolic blood pressure 85 mm[Hg] 85 mm[Hg] [facility] ([facility]) Body weight 1544 [oz_av] 1544 [oz_av] [facility] ([facility]) Systolic blood pressure 141 mm[Hg] 141 mm[Hg] A THENA ([facility]) Body mass index (BMI) [Ratio] 17.6 kg/m2 17.6 k g/m2 [facility] ([facility]) Body height 62 [in_i] 62 [in_i] [facility] ([facility]) Diastolic blood pressure 85 mm[Hg] 85 mm[Hg] [facility] ([facility]) Oxygen saturation in Arterial blood by Pulse oximetry 98 % 98 % [facility] Body weight 41.731 kg 41.731 kg [facility] Body height 157.5 cm 157.5 cm [facility] Respiratory rate 20 /min 20 /min [facility] Body temperature 37.22 Maria M 37.22 Maria M [facility] Heart rate 90 /min 90 /min [facility] Diastolic blood pressure 94 mm[Hg] 94 mm[Hg] [facility] Systolic blood pressure 135 mm[Hg] 135 mm[Hg] G [facility] Oxygen saturation in Arterial blood by Pulse oximetry 98 % 98 % [facility] Respiratory rate 20 /min 20 /min [facility] Heart rate 88 /min 88 /min [facility] Body height 157.5 cm 157.5 cm [facility] Body temperature 37.11 Maria M 37.11 Maria M [facility] Diastolic blood pressure 90 mm[Hg] 90 mm[Hg] [facility] Systolic blood pressure 142 mm[Hg] 142 mm[Hg] G [facility] Oxygen saturation in Arterial blood by Pulse oximetry 98 % 98 % [facility] Respiratory rate 18 /min 18 /min [facility] Body temperature 37.11 Maria M 37.11 Maria M [facility] Heart rate 97 /min 97 /min [facility] Diastolic blood pressure 58 mm[Hg] 58 mm[Hg] [facility] Systolic blood pressure 99 mm[Hg] 99 mm[Hg] G [facility] Body weight 45.36 kg 45.36 kg [facility] Body height 157.5 cm 157.5 cm [facility] Body weight 47.628 kg 47.628 kg [facility] ([facility], ) Body mass index (BMI) [Ratio] 19.2 kg/m2 19.2 k g/m2 [facility] ([facility]) Body weight 105.00 [lb_av] 105.00 [lb_av] [facility] ([facility], ) Body height 62 [in_i] 62 [in_i] [facility] ([facility], ) 5'2" ID Date Data Source [id number] 12/06/2019 08:08:36 PM [facility] Name Value Range Interpretation Code Description Data Source(s) Body height Measured 62 in 62 in [facility] Patient Treatment Plan of Care Planned Activity Planned Date Details Description Data Source (s) valacyclovir 1000 MG Oral Tablet PINKY ([facility]) Tab-A-Carlo 400 mcg tablet AT EMY ([facility]) Polyethylene Glycol 400 4 MG/ML / Propyl odessa glycol 3 MG/ML Ophthalmic Solution [Systane] PINKY ([facility]) Sulfamethoxazole 800 MG / Trimethoprim 160 MG Oral Tablet PINKY ([facility]) quetiapine 50 MG Oral Tablet PINK[facility] ([facility]) quetiapine 25 MG Oral Tablet PINK[facility] ([facility]) Prednisone 20 MG Oral Tablet PINK[facility] ([facility]) Ondansetron 4 MG Disintegrating Oral Tablet PINK[facility] ([facility]) Omeprazole 40 MG Delayed Release Oral Capsule PINKY ([facility]) Omeprazole 20 MG Delayed Release Oral Capsule PINK[facility] ([facility]) Metoclopramide 5 MG Oral Tablet PINK[facility] ([facility]) imiquimod 50 MG/ML Topical Cream PINKY ([facility]) Hydroxyzine Hydrochloride 50 MG Oral Tablet PINK[facility] ([facility]) Fluorouracil 50 MG/ML Topical Cream PINKY ([facility]) Doxycycline Monohydrate 100 MG Oral Capsule PINK[facility] ([facility]) Clindamycin 10 MG/ML Topical Solution PINKY ([facility]) Cimetidine 300 MG Oral Tablet PINKY ([facility]) chlorhexidine gluconate 1.2 MG/ML Mouthwash PINKY ([facility]) cetirizine hydrochloride 10 MG Oral Tablet PINKY ([facility]) benzonatate 100 MG Oral Capsule PINKY ([facility]) Azithromycin 250 MG Oral Tablet PINKY ([facility])
[2020-04-30] MEDS ORDERED: NS 500 ML IV ONE (06:30)
[2020-04-30 06:40] LABS: BASO # 0.1 10^3/uL (0.0-0.2); BASO % 0.5 % (0.0-1.0); EOS # 0.1 10^3/uL (0.0-0.5); EOS % 1.1 % (0.0-3.0); HEMATOCRIT 41.4 % (42.0-52.0); HEMOGLOBIN 14.7 g/dl (13.5-17.5); LYMPH # 1.4 10^3/uL (1.5-5.0); LYMPH % 14.1 % (24.0-44.0); MEAN CORPUSCULAR HEMOGLOBIN 27.6 pg (27.0-33.0); MEAN CORPUSCULAR HGB CONC 35.5 g/dl (32.0-36.5); MEAN CORPUSCULAR VOLUME 77.8 fl (80.0-96.0); MONO # 0.4 10^3/uL (0.0-0.8); MONO % 3.9 % (2.0-8.0); NEUTROPHILS % 79.5 % (36.0-66.0); PLATELET COUNT, AUTOMATED 143 10^3/uL (150-450); RED BLOOD COUNT 5.32 10^6/uL (4.30-6.10); WHITE BLOOD COUNT 10.1 10^3/uL (4.0-10.0)
[2020-04-30 06:47] LABS: BLOOD UREA NITROGEN 11 MG/DL (7-18); CALCIUM LEVEL 9.5 MG/DL (8.5-10.1); CARBON DIOXIDE LEVEL 21 MEQ/L (21-32); CHLORIDE LEVEL 104 MEQ/L (98-107); CREATININE FOR GFR 0.97 MG/DL (0.70-1.30); GLOMERULAR FILTRATION RATE > 60.0 (>60); GLUCOSE, FASTING 92 MG/DL (70-100); POTASSIUM SERUM 3.7 MEQ/L (3.5-5.1); SODIUM LEVEL 138 MEQ/L (136-145)
--- NOTE | 2020-04-30 06:47 | REPVR ---
PROCEDURE INFORMATION: Exam: XR Chest, 1 View Exam date and time: 04/30/2020 6:14 AM Age: 19 years old Clinical indication: Other: SOB TECHNIQUE: Imaging protocol: XR of the chest Views: 1 view. COMPARISON: CR PORTABLE CHEST X-RAY 03/06/2020 8:53 AM FINDINGS: Lungs: Hyperinflation, without acute airspace disease. Pleural spaces: No pleural effusion. Heart/Mediastinum: No cardiomegaly. Bones/joints: Unremarkable. IMPRESSION: Hyperinflation, without acute airspace or pleural disease. Electronically signed by: Tim Faulkner On 04/30/2020 06:46:52 AM
[2020-04-30] MEDS ORDERED: KETOROLAC 30 MG/ML 1ML VIAL IV ONE (07:30)
[2020-04-30] MEDS ORDERED: PRED20TA PO (10:24)
[2020-04-30 10:37] VITALS: BP 122/73
--- NOTE | 2020-05-01 08:13 | ECGEPIP ---
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
== END 2020-04-30 10:40 | disposition home or self-care (01) ==
LOC: M ED 05:14
DX: B34.8 Other viral infections of unspecified site (principal); J06.9 Acute upper respiratory infection, unspecified; F41.9 Anxiety disorder, unspecified; K21.9 Gastro-esophageal reflux disease without esophagitis; J45.909 Unspecified asthma, uncomplicated; Z79.51 Long term (current) use of inhaled steroids; Z79.52 Long term (current) use of systemic steroids; Z79.899 Other long term (current) drug therapy; Z88.1 Allergy status to other antibiotic agents; Z88.0 Allergy status to penicillin
CPT/HCPCS: 71045; 80048; 85025; 87798; 93005; 96361; 96374; 99284; J1885

== ENCOUNTER → 2020-05-05 | Outpatient (CLI) | payer OTHER ==
--- NOTE | 2020-05-05 17:35 | REP ---
INDICATION: COUGH. COMPARISON: Comparison chest x-ray 30 April 2020. TECHNIQUE: Two views.. FINDINGS: The lungs are well inflated and free of infiltrate. The pleural angles are sharp. The heart size is normal. Pulmonary vasculature is not increased. No significant bony abnormality is seen. IMPRESSION: Negative chest x-ray. <Electronically signed by Raulito Trevino > 05/05/20 [id number]
== END ==
LOC: M RAD 14:33
PROVIDERS: ATTEND Nurse Practitioner Family
DX: R05 Cough (principal); R07.0 Pain in throat

== ENCOUNTER → 2020-05-22 | Outpatient (REF) | payer OTHER ==
[~2020-05-22] MED LIST changes: +OMEP-218 PO
== END ==
LOC: M LAB REF 13:00
PROVIDERS: ATTEND Otolaryngology
DX: J31.0 Chronic rhinitis (principal)

== ENCOUNTER 2020-07-11 15:22 | Emergency (ER) | payer OTHER ==
[~2020-07-11] VITALS: Ht 157.5 cm; Wt 46.8 kg
--- NOTE | 2020-07-11 16:18 | REP ---
INDICATION: trauma COMPARISON: None. TECHNIQUE: AP and lateral views of the left humerus. FINDINGS: The osseous structures and joint spaces are intact and normal. There is no evidence for acute fracture or dislocation. Surrounding soft tissues are unremarkable. No subcutaneous emphysema or radiodense foreign body. IMPRESSION: . No acute fracture or dislocation. <Electronically signed by Jovanni Alas > 07/11/20 [id number]
[2020-07-11 16:42] VITALS: BP 108/62
== END 2020-07-11 16:51 | disposition home or self-care (01) ==
LOC: M ED 15:22
DX: S50.02XA Contusion of left elbow, initial encounter (principal); W22.8XXA Striking against or struck by other objects, initial encounter; Y92.018 Other place in single-family (private) house as the place of occurrence of the external cause; J45.909 Unspecified asthma, uncomplicated; F33.9 Major depressive disorder, recurrent, unspecified; F41.9 Anxiety disorder, unspecified; F90.9 Attention-deficit hyperactivity disorder, unspecified type; G47.33 Obstructive sleep apnea (adult) (pediatric); K58.9 Irritable bowel syndrome, unspecified; D69.6 Thrombocytopenia, unspecified; Z79.899 Other long term (current) drug therapy; Z88.0 Allergy status to penicillin; Z88.1 Allergy status to other antibiotic agents

== ENCOUNTER 2020-07-27 20:36 | Emergency (ER) | payer OTHER ==
[~2020-07-27] VITALS: Ht 157.5 cm; Wt 43.6 kg
[2020-07-27] MEDS ORDERED: METOCLOPRAMIDE INJ 10MG/2ML VIAL (J2765 PER 1) IV ONE (23:10)
[2020-07-27] MEDS ORDERED: NS 1,000 ML IV ONE (23:10)
[2020-07-27] MEDS ORDERED: KETOROLAC 30 MG/ML 1ML VIAL IV ONE (23:10)
[2020-07-28 00:25] LABS: MONO SCRN NEGATIVE (NEGATIVE)
[2020-07-28 00:28] LABS: ALBUMIN 5.6 GM/DL (3.2-5.2); ALT/SGPT 15 U/L (12-78); BILIRUBIN,DIRECT 0.4 MG/DL (0.0-0.2); BILIRUBIN,TOTAL 1.5 MG/DL (0.2-1.0); LIPASE 50 U/L (73-393); TOTAL PROTEIN 8.8 GM/DL (6.4-8.2)
[2020-07-28 00:28] LABS: BASO % 0.3 % (0.0-1.0); EOS % 0.1 % (0.0-3.0); HEMATOCRIT 45.7 % (42.0-52.0); HEMOGLOBIN 15.7 g/dl (13.5-17.5); LYMPH # 0.6 10^3/uL (1.5-5.0); LYMPH % 5.6 % (24.0-44.0); MEAN CORPUSCULAR HEMOGLOBIN 27.2 pg (27.0-33.0); MEAN CORPUSCULAR HGB CONC 34.4 g/dl (32.0-36.5); MEAN CORPUSCULAR VOLUME 79.1 fl (80.0-96.0); MONO # 0.3 10^3/uL (0.0-0.8); NEUTROPHILS # 10.3 10^3/uL (1.5-8.5); NEUTROPHILS % 90.6 % (36.0-66.0); PLATELET COUNT, AUTOMATED 111 10^3/uL (150-450); RED BLOOD COUNT 5.78 10^6/uL (4.30-6.10); WHITE BLOOD COUNT 11.3 10^3/uL (4.0-10.0)
[2020-07-28 03:02] VITALS: BP 131/70
== END 2020-07-28 03:04 | disposition home or self-care (01) ==
LOC: M ED 20:36
DX: R10.9 Unspecified abdominal pain (principal); G89.29 Other chronic pain; R53.83 Other fatigue; F41.1 Generalized anxiety disorder; Z79.899 Other long term (current) drug therapy; Z88.0 Allergy status to penicillin; Z88.1 Allergy status to other antibiotic agents
CPT/HCPCS: 80047; 80076; 83690; 85025; 86308; 93041; 96374; 96375; 99284; J1885; J2765; U0003

== ENCOUNTER 2020-07-30 11:43 | Emergency (ER) | payer OTHER ==
[~2020-07-30] VITALS: Ht 157.5 cm; Wt 43.8 kg
[2020-07-30] MEDS ORDERED: ARNU1INH (11:53)
[2020-07-30] MEDS ORDERED: OMEP-221 (11:53)
[2020-07-30] MEDS ORDERED: ALBU8.5H (11:53)
[2020-07-30] MEDS ORDERED: MUCI600T31 (11:53)
[2020-07-30] MEDS ORDERED: DOCU100C16 (11:53)
[2020-07-30] MEDS ORDERED: POTA1TAB14 (11:53)
[2020-07-30] MEDS ORDERED: ALBU83IN (11:53)
[2020-07-30] MEDS ORDERED: PARO5TAB (11:53)
[2020-07-30] MEDS ORDERED: NS 1,000 ML IV ONE (13:25)
[2020-07-30 13:59] LABS: BASO % 0.4 % (0.0-1.0); EOS % 0.4 % (0.0-3.0); HEMATOCRIT 44.8 % (42.0-52.0); HEMOGLOBIN 15.6 g/dl (13.5-17.5); LYMPH # 1.3 10^3/uL (1.5-5.0); LYMPH % 17.5 % (24.0-44.0); MEAN CORPUSCULAR HEMOGLOBIN 27.3 pg (27.0-33.0); MEAN CORPUSCULAR HGB CONC 34.8 g/dl (32.0-36.5); MEAN CORPUSCULAR VOLUME 78.3 fl (80.0-96.0); MONO # 0.4 10^3/uL (0.0-0.8); MONO % 5.4 % (2.0-8.0); NEUTROPHILS # 5.4 10^3/uL (1.5-8.5); NEUTROPHILS % 75.7 % (36.0-66.0); PLATELET COUNT, AUTOMATED 115 10^3/uL (150-450); RED BLOOD COUNT 5.72 10^6/uL (4.30-6.10); WHITE BLOOD COUNT 7.2 10^3/uL (4.0-10.0)
--- NOTE | 2020-07-30 14:22 | REP ---
INDICATION: llq/left flank pain. COMPARISON: 10/04/2018 the latest prior a contrast-enhanced exam TECHNIQUE: Noncontrast enhanced stone protocol technique due to left flank pain. FINDINGS: The lung bases are clear. Limited evaluation of the solid intra-abdominal organs and gallbladder show no gross abnormalities. Hepatic and splenic densities are within normal limits. There is no evidence of splenomegaly. 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 This is unchanged. There is no nephroureterolithiasis, hydronephrosis, or hydroureter. Limited evaluation of the abdominal aorta and para-aortic regions show no gross abnormalities. There is no free fluid or free air. There is no evidence of a mass or adenopathy. Limited evaluation of the bowel loops and the mesenteries show no abnormalities. Bone window technique throughout the examination shows no significant change in appearance of the osseous structures. IMPRESSION: There is no evidence of acute disease. Findings as described above. <Electronically signed by Ming Martínez > 07/30/20 [id number]
[2020-07-30 14:26] LABS: ALBUMIN 5.5 GM/DL (3.2-5.2); ALT/SGPT 17 U/L (12-78); BILIRUBIN,DIRECT 0.2 MG/DL (0.0-0.2); BILIRUBIN,TOTAL 1.1 MG/DL (0.2-1.0); BLOOD UREA NITROGEN 9 MG/DL (7-18); CARBON DIOXIDE LEVEL 24 MEQ/L (21-32); CHLORIDE LEVEL 107 MEQ/L (98-107); CREATININE FOR GFR 1.03 MG/DL (0.70-1.30); GLOMERULAR FILTRATION RATE > 60.0 (>60); GLUCOSE, FASTING 90 MG/DL (70-100); LIPASE 35 U/L (73-393); POTASSIUM SERUM 4.9 MEQ/L (3.5-5.1); SODIUM LEVEL 137 MEQ/L (136-145); TOTAL PROTEIN 8.5 GM/DL (6.4-8.2)
[2020-07-30 15:30] VITALS: BP 122/71
== END 2020-07-30 15:32 | disposition home or self-care (01) ==
LOC: M ED 11:43
DX: Q63.2 Ectopic kidney (principal); K59.00 Constipation, unspecified; J45.909 Unspecified asthma, uncomplicated; K58.9 Irritable bowel syndrome, unspecified; F41.9 Anxiety disorder, unspecified; Z79.51 Long term (current) use of inhaled steroids; Z79.899 Other long term (current) drug therapy; Z88.0 Allergy status to penicillin; Z88.1 Allergy status to other antibiotic agents

== ENCOUNTER → 2020-09-18 | Outpatient (CLI) | payer OTHER ==
[~2020-09-18] MED LIST changes: +ALBU83IN; +ARNU1INH; +DOCU100C16; +MUCI600T31; +OMEP-221; +OMEP40CA4 PO; -OMEP40CA97 PO; +PARO5TAB; +POTA1TAB14
--- NOTE | 2020-09-21 08:45 | REP ---
INDICATION: HIATAL HERNIA/PRE-OP. Rule out buckle fracture. Patient reports history of a fall about a month ago injuring the left forearm and hand. COMPARISON: Radiographs of the humerus are from July 11, 2020.. TECHNIQUE: Axial, coronal, and sagittal imaging planes utilized. T1 and T2 weighted scans are included in the usual fashion with without fat saturation. FINDINGS: Cortical and medullary bone signal intensity are normal in the distal humerus. The visualized proximal ulna appears intact as well. There is no evidence of joint effusion. There is no radius. 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 The triceps tendon appears intact. Brachialis tendon appears intact on sagittal T2 weighted scans no vascular abnormality is seen. IMPRESSION: Absent radius. No fracture noted. <Electronically signed by Raulito Trevino > 09/21/20 [id number]
--- NOTE | 2020-09-21 08:50 | REP ---
INDICATION: HIATAL HERNIA/PRE-OP. COMPARISON: Comparison radiographs of the left humerus are from a July 11, 2020.. TECHNIQUE: Axial, coronal, and sagittal imaging planes utilized. T1 and T2 weighted scans are included with without fat saturation. FINDINGS: Cortical and medullary bone signal intensity are normal on T2 weighted scans in the patient's ulna. The radius is developmentally absent, absent radius syndrome. The ulna is shortened and somewhat bowed, apex dorsally. There is severe valgus deformity at the ulnocarpal articulation as noted on comparison radiographs no soft tissue mass or abnormal fluid collection. 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 No evidence of recent fracture or or other traumatic abnormality. <Electronically signed by Raulito Trevino > 09/21/20 [id number]
== END ==
LOC: M RAD 08-23 10:32
PROVIDERS: ATTEND Physician Assistant
DX: Q68.8 Other specified congenital musculoskeletal deformities (principal); M25.522 Pain in left elbow

== ENCOUNTER 2020-12-21 18:44 | Emergency (ER) | payer OTHER ==
[~2020-12-21] VITALS: Ht 157.5 cm; Wt 45.5 kg
[~2020-12-21 18:44] MED LIST changes: +QUET1TAB17 PO; -QUET25TA3 PO; -QUET50TA3 PO; +QUET50TA4 PO
[2020-12-21 18:49] VITALS: BP 148/80
[2020-12-21 21:19] LABS: RSV AMPLIFICATION NEGATIVE (NEGATIVE)
== END 2020-12-21 21:46 | disposition left against medical advice (07) ==
LOC: M ED 18:44
DX: Z53.29 Procedure and treatment not carried out because of patient's decision for other reasons (principal)

== ENCOUNTER 2021-01-27 00:35 | Emergency (ER) | payer OTHER ==
[~2021-01-27] VITALS: Ht 157.5 cm; Wt 47.1 kg
[2021-01-27 00:35] VITALS: BP 146/74
[2021-01-27] MEDS ORDERED: FLON1SPR NARES (00:54)
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
--- OUTSIDE RECORDS SUMMARY | 2021-01-27 02:39 | CCD ---
Author Organization Unknown Address [address] [place] [id number] Phone [phone] Care Team Providers Care Senior Product Integrity Engineer Name Role Phone VERNON GALO MD 2 [phone] Allergies Code Code System Name Reaction Severity Status Onset 723 RxNorm Amoxicillin Deactivated 2018 Penicillin Deactivated 019 3640 RxNorm Doxycycline Rash Moderate Deactivated 2020 4053 RxNorm Erythromycin Base Active Penicillins Active 43803 RxNorm Clarithromycin Deactivated Medications Name Status Start [...] View Information not avai lable 07/29/2020 Electrocardiogram [facility] [address] [facility] [address] [place] [address] (Work Place) Notes: None Results Lab Results Date Name Specimen Result Interpretation Description Value Range Status Address 12/21/2020 Influenza A/B RSV Covid Amp Normal Influenza a Amplification negative negative Final [facility] nter: [address] [facility] Normal Influenza B Amplification negative n egative Final [facility]: [address] [facility] Normal RSV Amplification negative negative Final [facility]: [address] [facility] Normal Sars Covid-19 Amplification negative negative Final [facility]: [address] [facility] 12/18/2020 SARS CoV 2 RdRp Gene, QL Probe, Respiratory Spec imen Nasopharyngeal Normal Sars-cov-2 negative negative Final [facility] Medical: [address] [facility] 08/25/2020 SARS CoV 2 RdRp Gene, QL Probe, Respiratory Spec imen Nasopharyngeal Normal Sars-cov-2 negative negative Final [facility] Medical: [address] [facility] 07/30/2020 UA W/ Reflex to Culture Normal Appearance, Urine Rfx clear clear Final [facility]: [address] [facility] Normal Color, Urine Rfx straw yellow [facility]: [address] [facility] Normal pH,urine Rfx 6.0 units 5.0-9.0 units [facility]: [address] [facility] Normal Specific [place] Ur Auto Rfx 1.002 1.002-1.035 [facility]: [address] [facility] Normal Protein, Urine Auto Rfx negative mg/ dL negative mg/dL [facility]: [address] [facility] Normal Glucose, Urine (UA) Auto Rfx n egative mg/dL negative mg/dL [facility]: [address] [facility] Normal Ketone, Urine Auto Rfx negative mg/d L negative mg/dL [facility]: [address] [facility] Normal Urobilinogen, Urine Auto Rfx 0.2 mg/ dL 0.0-2.0 mg/dL [facility]: [address] [facility] Normal Bilirubin, Urine Auto Rfx negative n egative [facility]: [address] [facility] Normal Nitrite, Urine Auto Rfx negative neg ative [facility]: [address] [facility] Normal Leukocyte Esterase Ur Auto Rfx negat ric negative [facility]: [address] [facility] Normal Blood, Urine Blood Rfx negative nega tive [facility]: [address] [facility] Normal WBC, Urine Auto Rfx 0 /hpf 0-3 /hpf [facility]: [address] [facility] Normal RBC, Urine Auto Rfx 1 /hpf 0-3 /hpf [facility]: [address] [facility] Normal Bacteria, Urine Auto Rfx negative ne gative [facility]: [address] [facility] Normal Squam Epithelial Cell Ur Aurfx 0 /hp f 0-6 /hpf [facility]: [address] [facility] Normal Hyaline Cast, Urine Auto Rfx 0 /lpf 0-1 /lpf [facility]: [address] [place] [address] 07/30/2020 CBC W/ Auto Diff Normal White Blood Count 7.2 10 4.0-10.0 10 [facility]: [address] [place] [address] Normal Red Blood Count 5.72 10 4.30-6.10 10 [facility]: [address] [place] [address] Normal Hemoglobin 15.6 g/dL 13.5-17.5 g/dL [facility]: [address] [place] [address] Normal Hematocrit 44.8 % 42.0-52.0 % [facility]: [address] [place] [address] Low Mean Corpuscular Volume 78.3 fL 80.0 -96.0 fL [facility]: [address] [place] [address] Normal Mean Corpuscular Hemoglobin 27.3 pg 27.0-33.0 pg [facility]: [address] [place] [address] Normal Mean Corpuscular HGB Conc 34.8 g/dL 32.0-36.5 g/dL [facility]: [address] [place] [address] Normal Red Cell Distribution Width 13.2 % 1 1.5-14.5 % [facility]: [address] [place] [address] Low Platelet Count, Automated 115 10 150 -450 10 [facility]: 0 [facility] High Neutrophils % 75.7 % 36.0-66.0 % [facility]: [address] [facility] Low Lymph % 17.5 % 24.0-44.0 % [facility]: [address] [facility] Normal [place] % 5.4 % 2.0-8.0 % [facility]: 0 [facility] Normal Eos % 0.4 % 0.0-3.0 % [facility]: 0 [facility] Normal Baso % 0.4 % 0.0-1.0 % [facility]: [address] [facility] Normal Immature Granulocyte % 0.6 % 0-3.0 % [facility]: [address] [facility] Normal Nucleated Red Blood Cell % 0.0 % 0- 0 % [facility]: [address] [facility] Normal Neutrophils # 5.4 10 1.5-8.[address] [facility]: [address] [facility] Low Lymph # 1.3 10 1.5-5.0 10 [facility]: [address] [facility] Normal [place] # 0.4 10 0.0-0.8 10 [facility]: [address] [facility] Normal Eos # 0.0 10 0.0-0.5 10 [facility]: [address] [facility] Normal Baso # 0.0 10 0.0-0.2 10 [facility]: [address] [facility] 07/30/2020 Hepatic Function Panel, Serum Normal AST/SG OT 37 U/L 7-37 U/L [facility]: [address] [facility] Normal ALT/SGPT 17 U/L 12-78 U/L [facility]: [address] [facility] Normal Alkaline Phosphatase 49 U/L 45-117 U /L [facility]: 0 [facility] High Bilirubin,total 1.1 mg/dL 0.2-1.0 mg /dL [facility]: 0 [facility] Normal Bilirubin,direct 0.2 mg/dL 0.0-0.2 m g/dL [facility]: [address] [facility] High Total Protein 8.5 gm/dL 6.4-8.2 gm/d L [facility]: 0 [facility] High Albumin 5.5 gm/dL 3.2-5.2 gm/dL [facility]: [address] [facility] Normal Albumin/globulin Ratio 1.8 [facility]: 0 [facility] 07/30/2020 BMP, Serum or Plasma Normal Glucose, Fastin g 90 mg/dL 70-100 mg/dL [facility]: [address] [facility] Normal Blood Urea Nitrogen 9 mg/dL 7-18 mg/ dL [facility]: [address] [facility] Normal Creatinine for GFR 1.03 mg/dL 0.70-1 .30 mg/dL [facility]: [address] [facility] Normal Glomerular Filtration Rate > 60.0 >6 0 [facility]: [address] [facility] Normal Sodium Level 137 mEq/L 136-145 mEq/L [facility]: [address] [facility] Normal Potassium Serum 4.9 mEq/L 3.5-5.1 mE q/L [facility]: [address] [facility] Normal Chloride Level 107 mEq/L 98-107 mEq/ L [facility]: [address] [facility] Normal Carbon Dioxide Level 24 mEq/L 21-32 mEq/L [facility]: [address] [facility] Low Anion Gap 6 mEq/L 8-16 mEq/L [facility]: [address] [facility] Normal Calcium Level 10.0 mg/dL 8.5-10.1 mg /dL [facility]: [address] [facility] 07/30/2020 Lipase, Serum or Plasma Low Lipase 35 U/L 7 3-393 U/L [facility]: [address] [facility] 07/27/2020 Shona Covid Antigen Normal Shona Covid Anti gen negative negative [facility]: [address] [facility] 07/27/2020 Istat Chem8+ Panel Normal Istat HCT 43.0 % 38. 0-51.0 % [facility]: [address] [facility] High Istat Glucose 124 mg/dL 70-105 mg/dL [facility]: [address] [facility] Normal Istat Sodium 140 mEq/L 136-145 mEq/L [facility]: [address] [facility] Normal Istat Potassium 3.9 mEq/L 3.5-5.1 mE q/L [facility]: [address] [facility] Normal Istat Ca++ 4.9 mg/dL 4.5-5.3 mg/dL F [facility]: [address] [facility] Normal Istat Chloride 106 mEq/L 98-109 mEq/ L [facility]: [address] [facility] Normal Istat CO2 23.0 mm/L 23.0-27.0 mm/L F [facility]: [address] [facility] Normal Istat BUN 10 mg/dL 8-26 mg/dL [facility]: 0 [facility] Normal Istat Creatinine 1.0 mg/dL 0.6-1.3 m g/dL [facility]: [address] [facility] 07/27/2020 Hepatic Function Panel, Serum Normal AST/SG OT 16 U/L 7-37 U/L [facility]: [address] [facility] Normal ALT/SGPT 15 U/L 12-78 U/L [facility]: [address] [facility] Normal Alkaline Phosphatase 59 U/L 45-117 U /L [facility]: 0 [facility] High Bilirubin,total 1.5 mg/dL 0.2-1.0 mg /dL [facility]: 0 [facility] High Bilirubin,direct 0.4 mg/dL 0.0-0.2 m g/dL [facility]: [address] [facility] High Total Protein 8.8 gm/dL 6.4-8.2 gm/d L [facility]: [address] [facility] High Albumin 5.6 gm/dL 3.2-5.2 gm/dL [facility]: [address] [facility] Normal Albumin/globulin Ratio 1.8 [facility]: [address] [facility] 07/27/2020 Lipase, Serum or Plasma Low Lipase 50 U/L 7 3-393 U/L [facility]: [address] [facility] 07/27/2020 [place] Screen Normal [place] Scrn negative negative [facility]: [address] [facility] 07/27/2020 CBC W/ Auto Diff High White Blood Count 11.3 10 4.0-10.0 10 [facility]: [address] [facility] Normal Red Blood Count 5.78 10 4.30-6.10 10 [facility]: [address] [facility] Normal Hemoglobin 15.7 g/dL 13.5-17.5 g/dL [facility]: [address] [facility] Normal Hematocrit 45.7 % 42.0-52.0 % [facility]: [address] [place] [address] Low Mean Corpuscular Volume 79.1 fL 80.0 -96.0 fL [facility]: [address] [place] [address] Normal Mean Corpuscular Hemoglobin 27.2 pg 27.0-33.0 pg [facility]: [address] [facility] Normal Mean Corpuscular HGB Conc 34.4 g/dL 32.0-36.5 g/dL [facility]: 0 [facility] Normal Red Cell Distribution Width 13.2 % 1 1.5-14.5 % [facility]: [address] [place] [address] Low Platelet Count, Automated 111 10 150 -450 10 [facility]: 0 [facility] High Neutrophils % 90.6 % 36.0-66.0 % [facility]: [address] [facility] Low Lymph % 5.6 % 24.0-44.0 % [facility]: [address] [facility] Normal [place] % 3.0 % 2.0-8.0 % [facility]: [address] [facility] Normal Eos % 0.1 % 0.0-3.0 % [facility]: [address] [facility] Normal Baso % 0.3 % 0.0-1.0 % [facility]: [address] [facility] Normal Immature Granulocyte % 0.4 % 0-3.0 % [facility]: [address] [facility] Normal Nucleated Red Blood Cell % 0.0 % 0- 0 % [facility]: [address] [facility] High Neutrophils # 10.3 10 1.5-8.5 10 Fin [facility]: [address] [facility] Low Lymph # 0.6 10 1.5-5.0 10 [facility]: [address] [facility] Normal [place] # 0.3 10 0.0-0.8 10 [facility]: [address] [facility] Normal Eos # 0.0 10 0.0-0.5 10 [facility]: [address] [facility] Normal Baso # 0.0 10 0.0-0.2 10 [facility]: [address] [facility] 07/27/2020 SARS CoV 2 RNA, QL, Nasopharynx NASOPHARYNX No observation recorded. [facility]: [address] [place] [address] 05/20/2020 CMP, Serum or Plasma High Glucose, Fastin g 105 mg/dL 70-100 mg/dL [facility]: [address] [facility] Normal Blood Urea Nitrogen 13 mg/dL 7-18 mg /dL [facility]: 0 [facility] Normal Creatinine for GFR 1.08 mg/dL 0.70-1 .30 mg/dL [facility]: [address] [facility] Normal Glomerular Filtration Rate > 60.0 >6 0 [facility]: [address] [facility] Normal Sodium Level 139 mEq/L 136-145 mEq/L [facility]: 0 [facility] Low Potassium Serum 3.1 mEq/L 3.5-5.1 mE q/L [facility]: 0 [facility] Normal Chloride Level 107 mEq/L 98-107 mEq/ L [facility]: [address] [facility] Normal Carbon Dioxide Level 24 mEq/L 21-32 mEq/L [facility]: [address] [facility] Normal Anion Gap 8 mEq/L 8-16 mEq/L [facility]: [address] [facility] Normal Calcium Level 9.1 mg/dL 8.5-10.1 mg/ dL [facility]: [address] [facility] Normal AST/SGOT 11 U/L 7-37 U/L [facility]: [address] [facility] Normal ALT/SGPT 20 U/L 12-78 U/L [facility]: [address] [facility] Normal Alkaline Phosphatase 52 U/L 45-117 U /L [facility]: 0 [facility] Normal Bilirubin,total 0.9 mg/dL 0.2-1.0 mg /dL [facility]: 0 [facility] Normal Total Protein 7.7 gm/dL 6.4-8.2 gm/d L [facility]: [address] [facility] Normal Albumin 4.8 gm/dL 3.2-5.2 gm/dL [facility] 0 [facility] Normal Albumin/globulin Ratio 1.7 [facility]: 0 [facility] 05/20/2020 CBC W/ Auto Diff High White Blood Count 10.9 10 4.0-10.0 10 [facility]: 0 [facility] Normal Red Blood Count 5.66 10 4.30-6.10 10 [facility]: 0 [facility] Normal Hemoglobin 15.2 g/dL 13.5-17.5 g/dL [facility]: 0 [facility] Normal Hematocrit 44.2 % 42.0-52.0 % [facility]: [address] [place] [address] Low Mean Corpuscular Volume 78.1 fL 80.0 -96.0 fL [facility]: [address] [place] [address] Low Mean Corpuscular Hemoglobin 26.9 pg 27.0-33.0 pg Final [facility]: [address] [facility] Normal Mean Corpuscular HGB Conc 34.4 g/dL 32.0-36.5 g/dL Final [facility]: [address] [facility] Normal Red Cell Distribution Width 13.5 % 1 1.5-14.5 % [facility]: [address] [facility] Low Platelet Count, Automated 130 10 150 -450 10 [facility]: [address] [facility] High Neutrophils % 83.3 % 36.0-66.0 % [facility]: [address] [facility] Low Lymph % 12.4 % 24.0-44.0 % Final [facility]: [address] [facility] Normal [place] % 2.8 % 2.0-8.0 % Final [facility]: [address] [facility] Normal Eos % 0.6 % 0.0-3.0 % [facility]: [address] [facility] Normal Baso % 0.3 % 0.0-1.0 % Final [facility]: [address] [facility] Normal Immature Granulocyte % 0.6 % 0-3.0 % [facility]: [address] [facility] Normal Nucleated Red Blood Cell % 0.0 % 0- 0 % [facility]: [address] [facility] High Neutrophils # 9.1 10 1.5-8.[address] [facility]: [address] [facility] Low Lymph # 1.4 10 1.5-5.0 10 Final [facility]: [address] [facility] Normal [place] # 0.3 10 0.0-0.8 10 [facility]: [address] [facility] Normal Eos # 0.1 10 0.0-0.5 10 [facility]: [address] [facility] Normal Baso # 0.0 10 0.0-0.2 10 [facility]: [address] [facility] 05/20/2020 Periph Smear for Path Review Normal Slide R eview report [facility]: [address] [facility] Normal Source peripheral smear Final [facility]: [address] [facility] Normal Reason for Review atypical lymphs Final [facility]: [address] [facility] 05/20/2020 TIBC (Total Iron-binding Capacity), Serum Low Iron (Fe) 62 ug/dL 65-175 ug/dL [facility] nter: [address] [facility] Normal Total Iron Binding Capacity 346 ug/d L 250-450 ug/dL [facility]: [address] [place] [address] Low Percent Saturation 17.9 % 19.7-50.0 % [facility]: [address] [facility] 05/20/2020 Ferritin, Serum or Plasma Normal Ferritin 55 NG/mL 26-388 NG/mL [facility]: [address] [facility] 05/20/2020 Pathology Request for Service Perip eral Smear-path Review [facility]: [address] 0 [facility] 04/30/2020 Shona Covid Antigen Normal Shona Covid Anti gen negative negative [facility]: [address] 0 [facility] 04/30/2020 CBC W/ Auto Diff High White Blood Count 10.1 10 4.0-10.0 10 [facility]: 0 [facility] Normal Red Blood Count 5.32 10 4.30-6.10 10 [facility]: [address] [facility] Normal Hemoglobin 14.7 g/dL 13.5-17.5 g/dL [facility]: 0 [facility] Low Hematocrit 41.4 % 42.0-52.0 % [facility]: 0 [facility] Low Mean Corpuscular Volume 77.8 fL 80.0 -96.0 fL [facility]: 0 [facility] Normal Mean Corpuscular Hemoglobin 27.6 pg 27.0-33.0 pg [facility]: [address] [facility] Normal Mean Corpuscular HGB Conc 35.5 g/dL 32.0-36.5 g/dL [facility]: [address] [facility] Normal Red Cell Distribution Width 14.1 % 1 1.5-14.5 % [facility]: [address] [place] [address] Low Platelet Count, Automated 143 10 150 -450 10 [facility]: [address] [facility] High Neutrophils % 79.5 % 36.0-66.0 % [facility]: [address] [facility] Low Lymph % 14.1 % 24.0-44.0 % Final [facility]: [address] [facility] Normal [place] % 3.9 % 2.0-8.0 % [facility]: [address] [place] [address] Normal Eos % 1.1 % 0.0-3.0 % [facility]: 0 [facility] Normal Baso % 0.5 % 0.0-1.0 % [facility]: [address] [place] [address] Normal Immature Granulocyte % 0.9 % 0-3.0 % [facility]: [address] [place] [address] Normal Nucleated Red Blood Cell % 0.0 % 0- 0 % [facility]: 0 [facility] Normal Neutrophils # 8.0 10 1.5-8.[address] [facility]: [address] [facility] Low Lymph # 1.4 10 1.5-5.0 10 [facility]: 0 [facility] Normal [place] # 0.4 10 0.0-0.8 10 [facility]: [address] [place] [address] Normal Eos # 0.1 10 0.0-0.5 10 [facility]: 0 [facility] Normal Baso # 0.1 10 0.0-0.2 10 [facility]: [address] [place] [address] 04/30/2020 BMP, Serum or Plasma Normal Glucose, Fastin g 92 mg/dL 70-100 mg/dL [facility]: [address] 0 [facility] Normal Blood Urea Nitrogen 11 mg/dL 7-18 mg /dL [facility]: [address] [facility] Normal Creatinine for GFR 0.97 mg/dL 0.70-1 .30 mg/dL [facility]: [address] [facility] Normal Glomerular Filtration Rate > 60.0 >6 0 [facility]: [address] [facility] Normal Sodium Level 138 mEq/L 136-145 mEq/L [facility]: [address] [facility] Normal Potassium Serum 3.7 mEq/L 3.5-5.1 mE q/L [facility]: [address] [facility] Normal Chloride Level 104 mEq/L 98-107 mEq/ L [facility]: [address] [facility] Normal Carbon Dioxide Level 21 mEq/L 21-32 mEq/L [facility]: [address] [facility] Normal Anion Gap 13 mEq/L 8-16 mEq/L [facility]: [address] [facility] Normal Calcium Level 9.5 mg/dL 8.5-10.1 mg/ dL [facility]: [address] [facility] 04/30/2020 Respiratory Virus Panel NASOPHARYNX No observ ation recorded. [facility]: [address] [facility] 04/10/2020 Urinalysis, Dipstick, Auto Normal Bilirubin ne g Final [facility]: [address] [facility] Normal Blood neg Final [facility] [place] [facility]: [address] [facility] Normal Glucose neg Final [facility]: [address] [facility] Normal Ketone neg Final Main [facility]: [address] [facility] Normal Leukocytes neg Final [facility]: [address] [facility] Normal Nitrite neg Final [facility] [address] [facility] Normal Ph 8.0 Final Main [facility] [address] [facility] Normal Protein neg Final [facility] Medical: [address] [facility] Normal Specific [place] 1.010 Final [facility]: [address] [facility] Normal Urobilinogen 0.2 mg/dL Final [facility]: [address] [facility] 03/27/2020 CBC W/ Auto Diff Normal White Blood Count 6.2 10 4.0-10.0 10 [facility]: 0 [facility] Normal Red Blood Count 5.29 10 4.30-6.10 10 [facility]: [address] [facility] Normal Hemoglobin 14.5 g/dL 13.5-17.5 g/dL [facility]: [address] [place] [address] Low Hematocrit 41.9 % 42.0-52.0 % [facility]: [address] [place] [address] Low Mean Corpuscular Volume 79.2 fL 80.0 -96.0 fL [facility]: [address] [place] [address] Normal Mean Corpuscular Hemoglobin 27.4 pg 27.0-33.0 pg [facility]: [address] [place] [address] Normal Mean Corpuscular HGB Conc 34.6 g/dL 32.0-36.5 g/dL [facility]: 0 [facility] Normal Red Cell Distribution Width 13.6 % 1 1.5-14.5 % [facility]: [address] [place] [address] Low Platelet Count, Automated 135 10 150 -450 10 [facility]: 0 [facility] High Neutrophils % 70.7 % 36.0-66.0 % [facility]: [address] [facility] Low Lymph % 19.8 % 24.0-44.0 % [facility]: [address] [facility] Normal [place] % 4.4 % 0.0-5.0 % [facility]: [address] [facility] High Eos % 3.4 % 0.0-3.0 % [facility]: [address] [facility] Normal Baso % 0.6 % 0.0-1.0 % [facility]: [address] [facility] Normal Immature Granulocyte % 1.1 % 0-3.0 % [facility]: [address] [place] [address] Normal Nucleated Red Blood Cell % 0.0 % 0- 0 % [facility]: [address] [facility] Normal Neutrophils # 4.4 10 1.5-8.5 10 [facility] [address] [facility] Low Lymph # 1.2 10 1.5-5.0 10 [facility]: 0 [facility] Normal [place] # 0.3 10 0.0-0.8 10 [facility]: 0 [facility] Normal Eos # 0.2 10 0.0-0.5 10 [facility]: 0 [facility] Normal Baso # 0.0 10 0.0-0.2 10 [facility]: [address] [facility] 03/27/2020 CMP, Serum or Plasma Normal Glucose, Fastin g 89 mg/dL 70-100 mg/dL [facility]: 83 0 [facility] Normal Blood Urea Nitrogen 11 mg/dL 7-18 mg /dL [facility]: [address] [place] [address] Normal Creatinine for GFR 0.90 mg/dL 0.70-1 .30 mg/dL [facility]: [address] [place] [address] Normal Glomerular Filtration Rate > 60.0 >6 0 [facility] [facility] Normal Sodium Level 140 mEq/L 136-145 mEq/L [facility]: 0 [facility] Normal Potassium Serum 3.7 mEq/L 3.5-5.1 mE q/L [facility]: 0 [facility] Normal Chloride Level 107 mEq/L 98-107 mEq/ L [facility]: 0 [facility] Normal Carbon Dioxide Level 26 mEq/L 21-32 mEq/L [facility]: 830 [facility] Low Anion Gap 7 mEq/L 8-16 mEq/L [facility]: 0 [facility] Normal Calcium Level 8.8 mg/dL 8.5-10.1 mg/ dL [facility]: 830 [facility] Normal AST/SGOT 15 U/L 7-37 U/L [facility]: 830 [facility] Normal ALT/SGPT 22 U/L 12-78 U/L [facility]: 830 [facility] Normal Alkaline Phosphatase 48 U/L 45-117 U /L [facility]: 0 [facility] Normal Bilirubin,total 0.7 mg/dL 0.2-1.0 mg /dL [facility]: 0 [facility] Normal Total Protein 7.1 gm/dL 6.4-8.2 gm/d L [facility]: 830 [facility] Normal Albumin 4.5 gm/dL 3.2-5.2 gm/dL [place] [facility]: 0 [facility] Normal Albumin/globulin Ratio 1.7 [facility]: 0 [facility] 03/11/2020 CMP, Serum or Plasma High Glucose, Fastin g 137 mg/dL 70-100 mg/dL [facility]: 83 0 [facility] Normal Blood Urea Nitrogen 16 mg/dL 7-18 mg /dL [facility]: 0 [facility] Normal Creatinine for GFR 0.99 mg/dL 0.70-1 .30 mg/dL [facility]: 0 [facility] Normal Glomerular Filtration Rate > 60.0 >6 0 [facility]: 830 [facility] Normal Sodium Level 137 mEq/L 136-145 mEq/L [facility]: 0 [facility] Normal Potassium Serum 4.1 mEq/L 3.5-5.1 mE q/L [facility]: 830 [facility] Normal Chloride Level 107 mEq/L 98-107 mEq/ L [facility]: 830 [facility] Normal Carbon Dioxide Level 22 mEq/L 21-32 mEq/L [facility]: 830 [facility] Normal Anion Gap 8 mEq/L 8-16 mEq/L [facility]: 830 [facility] Normal Calcium Level 9.6 mg/dL 8.5-10.1 mg/ dL [facility]: 830 [facility] Normal AST/SGOT 11 U/L 7-37 U/L [facility]: 830 [facility] Normal ALT/SGPT 15 U/L 12-78 U/L [facility]: 830 [facility] Normal Alkaline Phosphatase 53 U/L 45-117 U /L [facility]: 0 [facility] High Bilirubin,total 1.2 mg/dL 0.2-1.0 mg /dL [facility]: 830 [facility] High Total Protein 8.4 gm/dL 6.4-8.2 gm/d L [facility]: 0 [facility] High Albumin 5.4 gm/dL 3.2-5.2 gm/dL [place]: 0 [facility] Normal Albumin/globulin Ratio 1.8 [facility]: 0 [facility] 03/11/2020 CBC W/ Auto Diff High White Blood Count 12.0 10 4.0-10.0 10 [facility]: 830 [facility] High Red Blood Count 6.17 10 4.30-6.10 10 [facility]: 0 [facility] Normal Hemoglobin 16.6 g/dL 13.5-17.5 g/dL [facility]: 0 [facility] Normal Hematocrit 47.9 % 42.0-52.0 % [facility]: 0 [facility] Low Mean Corpuscular Volume 77.6 fL 80.0 -96.0 fL Final [facility]: [address] [place] [address] Low Mean Corpuscular Hemoglobin 26.9 pg 27.0-33.0 pg Final [facility]: [address] [place] [address] Normal Mean Corpuscular HGB Conc 34.7 g/dL 32.0-36.5 g/dL Final [facility]: [address] [place] [address] Normal Red Cell Distribution Width 13.2 % 1 1.5-14.5 % [facility]: [address] [place] [address] Low Platelet Count, Automated 141 10 150 -450 10 [facility]: 0 [facility] High Neutrophils % 92.6 % 36.0-66.0 % [facility]: [address] [place] [address] Low Lymph % 5.8 % 24.0-44.0 % Final [facility]: 830 [facility] Normal [place] % 0.6 % 0.0-5.0 % [facility]: [address] [place] [address] Normal Eos % 0.1 % 0.0-3.0 % [facility]: 0 [facility] Normal Baso % 0.2 % 0.0-1.0 % [facility]: [address] [place] [address] Normal Immature Granulocyte % 0.7 % 0-3.0 % [facility]: [address] [place] [address] Normal Nucleated Red Blood Cell % 0.0 % 0- 0 % [facility]: 830 [facility] High Neutrophils # 11.1 10 1.5-8.5 10 [facility]: 0 [facility] Low Lymph # 0.7 10 1.5-5.0 10 [facility]: 0 [facility] Normal [place] # 0.1 10 0.0-0.8 10 [facility]: 0 [facility] Normal Eos # 0.0 10 0.0-0.5 10 [facility]: 830 [facility] Normal Baso # 0.0 10 0.0-0.2 10 Final [facility]: 830 [facility] SARS CoV 2 IgG + IgM Ab, QL IA, Serum or Plasma or Blo od Blood venous Normal Sars Cov 2 Ab IgG negative negative Final [facility]: [address] [facility] Blood venous Normal Sars Cov 2 IgM negative negat ric Final [facility]: [address] [facility] CBC W/ Auto Diff Blood venous Normal White Bl ood Cell Count 5.3 thousand/uL 3.8-10.8 thousand/uL Final [facility]: [address] [facility] Blood venous Normal Red Blood Cell Count 5.6 0 million/uL 4.20-5.80 million/uL Final [facility]: [address] [facility] Blood venous Normal Hemoglobin 15.4 g/dL 13.2-17. 1 g/dL Final [facility]: [address] [facility] Blood venous Normal Hematocrit 43.4 % 38.5-50.0 % [facility]: [address] [facility] Blood venous Low Mcv 77.5 fL 80.0-100.0 fL Fi nal [facility]: [address] [facility] Blood venous Normal Mch 27.5 pg 27.0-33.0 pg Fin al [facility]: [address] [facility] Blood venous Normal Mchc 35.5 g/dL 32.0-36.0 g/dL Final [facility]: [address] [facility] Blood venous Normal Rdw 13.8 % 11.0-15.0 % Final [facility]: [address] [facility] Blood venous Low Platelet Count 107 thous and/uL 140-400 thousand/uL Final [facility]: [address] [facility] Blood venous High Mpv 12.6 fL 7.5-12.5 fL [place] [facility]: [address] [facility] Blood venous Normal Absolute Neutrophils 373 1 cells/uL 7158-2213 cells/uL Final [facility] gh: [address] [facility] Blood venous Normal Absolute Lymphocytes 101 8 cells/uL 850-3900 cells/uL Final [facility]: [address], [place] Blood venous Normal Absolute Monocytes 329 c ells/uL 200-950 cells/uL Final [facility]: [address], [place] Blood venous Normal Absolute Eosinophils 180 cells/uL 15-500 cells/uL Final [facility]: [address], [place] Blood venous Normal Absolute Basophils 42 ce lls/uL 0-200 cells/uL [facility]: [address], [place] Blood venous Normal Neutrophils 70.4 % 38-80 % Fi nal [facility]: [address], [place] Blood venous Normal Lymphocytes 19.2 % 15-49 % Fi nal [facility]: [address] , [place] Blood venous Normal Monocytes 6.2 % 0-13 % [facility]: [address], [place] Blood venous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
--- OUTSIDE RECORDS SUMMARY | 2021-01-27 02:40 | CCD | Continuity of Care Document ---
Author Author Tylor TORRES M.D. Organization Unknown Address [address], [address] [place] [address] Phone [phone] Care Team Providers Care Order Selector Name Role Phone Birgit Zhao AUTM Pedro Cates M.D. AUTM [phone] AUTM Unavailable Problems Description No Information Available Social History Type Date Description Comments Sex Unknown ETOH Use Denies alcohol use Tobacco Use Start: Unknown Denies Smoking Recreational Drug Use Former Drug User Was using marijuana to help sleep at night, now using THC capsules Allergies, Adverse Reactions, Alerts Active Allergies Criticality Reaction | Severity Comments Date Vancomycin Unable to assess criticality Rash 06/08/2018 Penicillin Unable to assess criticality 06/08/2018 Medications Active Medications SIG Qnty Indications Ordering Provide r Date Miralax 17GM/Scoop Powder 17 gram per dose, mixed with 8 oz water/fluid and to be taken 1 -2 times a day. ( hold or decrease dose if having diarrhea) 238gm K58.1 Ronnie marin M.D. 11/10/2020 Oscimin SR 0.375mg Tablets ER 12HR twice a day ( take around 15 minutes before breakfast and before dinner) 60tabs Ronnie Torres M.D. 11/10/2020 Ipratropium [place] 0.06% Solution spray 2 sprays in each nostrils two times a day 15units Edison george MD 09/24/[address] once daily - take early childhood associate teacher on empty stomach - atleast 1/2 hour before breakfast. (taper off after 6 weeks) 30caps K21.9 Ronnie Torres M.D. Fluticasone Propionate 50mcg/Act Suspension 2 sprays both sides once daily 1Month J31.0 Edison clark MD 07/06/2020 Mucinex 600mg Tablets ER 12HR 1 by mouth twice a day 60tabs Edison Romero MD 05/29/2020 Sinus Rinse Bottle Kit Packet use once daily 3Months J31.0 Edison Romero MD 05/22/2020 History Medications Polysporin 500-90602Sxyv/GM Ointme nt apply ointment to each nostril three times a day for 10 days 14.200gm J31.0 Edison Romero MD 05/22/2020 - 03/27/2020 Immunizations Description No Information Available Vital Signs Date Vital Result Comment 11/10/2020 10:11am Height 62 inches 5'2" Weight 103.00 lb BMI (Body Mass Index) 18.8 kg/m2 [place] Body Weight 118 lb Weight 46.721 kg BSA (Body Surface Area) 1.44 m2 09/24/2020 1:07pm Height 62 inches 5'2" Weight 101.00 lb BMI (Body Mass Index) 18.5 kg/m2 [place] Body Weight 118 lb Weight 45.814 kg BSA (Body Surface Area) 1.43 m2 Results Test Acquired Date Facility Test Result H/L Range Note Laboratory test finding 05/22/2020 [facility] Main Lab 0 [place], [place] [id number] [phone] Throat Culture FULL REPORT IN L <SEE NOTE> Normal 1 1 FULL REPORT IN LAB NOTES (eC W and Medent). NORMAL ROSALBA PRESENT Procedures Date Code Description Status 09/24/2020 97700 Office/Outpatient Established Mo d MDM 30-39 Min Completed 07/06/2020 88746 Office/Outpatient Established Lo w MDM 20-29 Min Completed 05/29/2020 06620 Office/Outpatient Established Lo w MDM 20-29 Min Completed 05/22/2020 45031 Office/Outpatient Established Lo w MDM 20-29 Min Completed 05/22/2020 03055 Laryngoscopy Flexible Fiberoptic Diagnostic Completed Medical Devices Description No Information Available Encounters Type Date Location Provider Dx Diagnosis Office Visit 09/24/2020 1:40p [facility] Edison Romero MD J31.0 Chronic rhinitis K21.9 Gastro-esophageal reflux dis ease without esophagitis Office Visit 07/06/2020 10:40a [facility] Edison Romero MD J31.0 Chronic rhinitis K21.9 Gastro-esophageal reflux dis ease without esophagitis Office Visit 05/29/2020 1:10p [facility] Practice Edison Romero MD J31.0 Chronic rhinitis K21.9 Gastro-esophageal reflux dis ease without esophagitis Office Visit 05/22/2020 8:40a [facility] Practice Edison Romero MD J31.0 Chronic rhinitis K21.9 Gastro-esophageal reflux dis ease without esophagitis Assessments Date Code Description Provider 11/10/2020 K58.1 Irritable bowel syndrome with co nstipation Ronnie Torres M.D. 09/24/2020 J31.0 Chronic rhinitis Edison Romero MD 09/24/2020 K21.9 Gastro-esophageal reflux disease without esophagitis Edison Romero MD 07/06/2020 J31.0 Chronic rhinitis Edison Romero MD 07/06/2020 K21.9 Gastro-esophageal reflux disease without esophagitis Edison Romero MD 05/29/2020 J31.0 Chronic rhinitis Edison Romero MD 05/29/2020 K21.9 Gastro-esophageal reflux disease without esophagitis Edison Romero MD 05/22/2020 J31.0 Chronic rhinitis Edison Romero MD 05/22/2020 K21.9 Gastro-esophageal reflux disease without esophagitis Edison Romero MD Plan of Treatment Future Appointment(s):* 01/28/2021 2:10 pm - Ronnie Torres M.D. at [facility] * 11/24/2020 3:00 pm - Edison Romero MD at [facility] 11/10/2020 - Ronnie Torres M.D.* K58.1 Irritable bowel syndrome with constipation* New Medication:* Miralax 17 GM/Scoop Functional Status Description No Information Available Mental Status Description No Information Available Referrals Refer to Dr Reason for Referral Status Appt Date Edison Romero M.D. 1 MONTH RECHECK Scheduled 07/06/[address] [place], [place] [address], [place] [address] [phone] Ronnie Torres M.D. LT UPPER QUAD PAIN Scheduled 0 07/16/2020 [facility] [address], [address] [place] [address] [phone] Severiano Toney, R.P.A.-C. COUGH/ASTHMA Created [facility] [address] [place] [address] [phone]
--- OUTSIDE RECORDS SUMMARY | 2021-01-27 02:40 | CCD | Continuity of Care Document ---
Author Author Tylor TORRES M.D. Organization Unknown Address [address], [address] [place] [address] Phone [phone] Care Team Providers Care Senior Telecommunications Specialist Name Role Phone Birgit Zhao AUTM Pedro Cates M.D. AUTM [phone] AUTM Unavailable Problems Description No Information Available [...] dinner) 60tabs Ronnie Torres M.D. 11/10/2020 Ipratropium [place] 0.06% Solution spray 2 sprays in each nostrils two times a day 15units Edison george MD 09/24/[address] once daily - take filling and stapling machine operator on empty stomach - atleast 1/2 hour [...] Edison Romero MD 05/22/2020 History Medications Polysporin 500-45592Ivld/GM Ointme nt apply ointment to each nostril three times a day for 10 days 14.200gm J31.0 Edison Romero MD 05/22/2020 - 03/27/2020 Immunizations Description No Information Available Vital Signs Date Vital Result Comment 11/10/2020 10:11am Height 62 inches 5'2" Weight 103.00 lb BMI (Body Mass Index) 18.8 kg/m2 [place] Body Weight 118 lb Weight 46.721 kg BSA (Body Surface Area) 1.44 m2 09/24/2020 1:07pm Height 62 inches 5'2" Weight 101.00 lb BMI (Body Mass Index) 18.5 kg/m2 [place] Body Weight 118 lb Weight 45.814 kg BSA (Body Surface Area) 1.43 m2 Results Test Acquired Date Facility Test Result H/L Range Note Laboratory test finding 05/22/2020 [facility] Main Lab 0 [place], [place] [id number] [phone] Throat Culture FULL REPORT IN L <SEE NOTE> Normal 1 1 FULL REPORT IN LAB NOTES (eC W and Medent). NORMAL ROSALBA PRESENT Procedures Date Code Description Status 09/24/2020 94340 Office/Outpatient Established Mo d MDM 30-39 Min Completed 07/06/2020 97497 Office/Outpatient Established Lo w MDM 20-29 Min Completed 05/29/2020 82939 Office/Outpatient Established Lo w MDM 20-29 Min Completed 05/22/2020 12877 Office/Outpatient Established Lo w MDM 20-29 Min Completed 05/22/2020 31933 Laryngoscopy Flexible Fiberoptic Diagnostic Completed Medical Devices Description No Information Available Encounters Type Date Location Provider Dx Diagnosis Office Visit 09/24/2020 1:40p [facility] Edison Romero MD J31.0 Chronic rhinitis K21.9 Gastro-esophageal reflux dis ease without esophagitis Office Visit 07/06/2020 10:40a [facility] Edison Romero MD J31.0 Chronic rhinitis K21.9 Gastro-esophageal reflux dis ease without esophagitis Office Visit 05/29/2020 1:10p [facility] Edison Romero MD J31.0 Chronic rhinitis K21.9 Gastro-esophageal reflux dis ease without esophagitis Office Visit 05/22/2020 8:40a [facility] Edison Romero MD J31.0 Chronic [...] 2:10 pm - Ronnie Torres M.D. at [facility] * 11/24/2020 3:00 pm - Edison Romero MD at [facility] 11/10/2020 - Ronnie Torres M.D.* K58.1 Irritable bowel syndrome with constipation* New Medication:* Miralax 17 GM/Scoop Functional Status Description No Information Available Mental Status Description No Information Available Referrals Refer to Dr Reason for Referral Status Appt Date Edison Romero M.D. 1 MONTH RECHECK Scheduled 07/06/[address] [place], [place] [address] [address] [phone] Ronnie Torres M.D. LT UPPER QUAD PAIN Scheduled 0 07/16/2020 [facility] [address], [address] [place] [address] [phone] Severiano Toney, R.P.A.-C. COUGH/ASTHMA Created [facility] [address] [place] [address] [phone]
--- OUTSIDE RECORDS SUMMARY | 2021-01-27 02:40 | CCD | Continuity of Care Document ---
Author Author Tylor ROMERO MD Organization Unknown Address [address] [facility] [place] [address] Phone [phone] Care Team Providers Care Childhood Development Teacher Name Role Phone Birgit Zhao AUTM [phone] Pedro Cates M.D. AUTM [phone] AUTM Unavailable Problems Description No Information Available Social History Type Date Description Comments Sex Unknown ETOH Use Denies alcohol use Tobacco Use Start: Unknown Denies Smoking Recreational Drug Use Former Drug User Was using marijuana to help sleep at night, now using THC capsules Allergies and adverse reactions Active Allergies Criticality Reaction | Severity Comments Date Vancomycin Unable to assess criticality Rash 06/08/2018 Penicillin Unable to assess criticality 06/08/2018 Medications Active Medications SIG Qnty Indications Ordering Provide r Date Dicyclomine HCL 20mg Tablets take 1 tablet by mouth 2 to 3 times daily, take atleast 15 minutes before meals (for diarrhea and abdominal cramps) 90tabs Ronnie De Santiago M.D. 11/11/2020 Miralax 17GM/Scoop Powder 17 gram per dose, mixed with 8 oz water/fluid and to be taken 1 -2 times a day. ( hold or decrease dose if having diarrhea) 238gm K58.1 Ronnie marin M.D. 11/10/2020 Ipratropium [place] 0.06% Solution spray 2 sprays in each nostrils two times a day 15units Edison george MD 09/24/[address] once daily - take flatwork ironer on empty stomach - atleast 1/2 hour before breakfast. (taper off after 6 weeks) 30caps K21.9 Ronnie De Santiago M.D. Fluticasone Propionate 50mcg/Act Suspension 2 sprays both sides once daily 1Month J31.0 Edison clark MD 07/06/2020 Mucinex 600mg Tablets ER 12HR 1 by mouth twice a day 60tabs Edison Romero MD 05/29/2020 Sinus Rinse Bottle Kit Packet use once daily 3Months J31.0 Edison Romero MD 05/22/2020 History Medications Oscimin SR 0.375mg Tablets ER 12HR twice a day ( take around 15 minutes before breakfast and before dinner) 60tabs Ronnie De Santiago M.D. 11/10/2020 - 11/11/2020 Immunizations Description No Information Available Vital Signs Date Vital Result Comment 12/15/2020 1:56pm Height 62 inches 5'2" Weight 106.38 lb BMI (Body Mass Index) 19.5 kg/m2 [place] Body Weight 118 lb Weight 48.252 kg BSA (Body Surface Area) 1.46 m2 11/10/2020 10:11am Height 62 inches 5'2" Weight 103.00 lb BMI (Body Mass Index) 18.8 kg/m2 [place] Body Weight 118 lb Weight 46.721 kg BSA (Body Surface Area) 1.44 m2 Results Description No Information Available Procedures Date Code Description Status 11/10/2020 72557 Office/Outpatient New Moderate M DM 45-59 Minutes Completed 09/24/2020 81599 Office/Outpatient Established Mo d MDM 30-39 Min Completed 07/06/2020 09553 Office/Outpatient Established Lo w MDM 20-29 Min Completed Medical Devices Description No Information Available Encounters Type Date Location Provider Dx Diagnosis Office Visit 11/10/2020 9:20a [facility] Gastroenterology [facility] florentino De Santiago M.D. K58.1 Irritable bowel syndrome wit h constipation Office Visit 09/24/2020 1:40p [facility] Edison Romero MD J31.0 Chronic rhinitis K21.9 Gastro-esophageal reflux dis ease without esophagitis Office Visit 07/06/2020 10:40a [facility] Edison Romero MD J31.0 Chronic rhinitis K21.9 Gastro-esophageal reflux dis ease without esophagitis Assessments Date Code Description Provider 11/10/2020 K58.1 Irritable bowel syndrome with co nstipation Ronnie De Santiago M.D. 09/24/2020 J31.0 Chronic rhinitis Edison Romero MD 09/24/2020 K21.9 Gastro-esophageal reflux disease without esophagitis Edison Romero MD 07/06/2020 J31.0 Chronic rhinitis Edison Romero MD 07/06/2020 K21.9 Gastro-esophageal reflux disease without esophagitis Edison Romero MD Plan of Treatment Future Appointment(s):* 01/28/2021 2:10 pm [facility] Functional Status Description No Information Available Mental Status Description No Information Available Referrals Refer to Dr Reason for Referral Status Appt Edison Romero M.D. 1 MONTH RECHECK Scheduled 07/06/[address] [address] [phone]
--- OUTSIDE RECORDS SUMMARY | 2021-01-27 02:40 | CCD | Continuity of Care Document ---
Author Author Tylor TORRES M.D. Organization Unknown Address [address] [facility], [address] [place] [address] Phone [phone] Care Team Providers Care Residential Roofer Helper Name Role Phone Birgit Zhao AUTM Pedro Cates M.D. AUTM [phone] AUTM Unavailable Problems Description No Information Available [...] (for diarrhea and abdominal cramps) 90tabs Ronnie Torres M.D. 11/11/2020 Miralax 17GM/Scoop Powder 17 gram per dose, mixed with 8 oz water/fluid and to be taken 1 -2 times a day. ( hold or decrease dose if having diarrhea) 238gm K58.1 Ronnie marin M.D. 11/10/2020 Ipratropium [place] 0.06% Solution spray 2 sprays in each nostrils two times a day 15units Edison george MD 09/24/[address] once daily - take artist woodblock on empty stomach - atleast 1/2 hour [...] before dinner) 60tabs Ronnie Torres M.D. 11/10/2020 - 11/11/2020 Immunizations Description No Information Available Vital Signs Date Vital Result Comment 11/10/2020 10:11am Height 62 inches 5'2" Weight 103.00 lb BMI (Body Mass Index) 18.8 kg/m2 [place] Body Weight 118 lb Weight 46.721 kg BSA (Body Surface Area) 1.44 m2 09/24/2020 1:07pm Height 62 inches 5'2" Weight 101.00 lb BMI (Body Mass Index) 18.5 kg/m2 [place] Body Weight 118 lb Weight 45.814 kg BSA (Body Surface Area) 1.43 m2 Results Description No Information Available Procedures Date Code Description Status 11/10/2020 74102 Office/Outpatient New Moderate M DM 45-59 Minutes Completed 09/24/2020 05993 Office/Outpatient Established Mo d MDM 30-39 Min Completed 07/06/2020 62905 Office/Outpatient Established Lo w MDM 20-29 Min Completed Medical Devices Description No Information Available Encounters Type Date Location Provider Dx Diagnosis Office Visit 11/10/2020 9:20a [facility] Gastroenterology [facility] ctice Ronnie Torres M.D. K58.1 Irritable bowel syndrome wit h constipation Office Visit 09/24/2020 1:40p [facility] Edison Romero MD J31.0 Chronic rhinitis K21.9 Gastro-esophageal reflux dis ease without esophagitis Office Visit 07/06/2020 10:40a [facility] Edison Romero MD J31.0 [...] Romero MD Plan of Treatment Future Appointment(s):* 12/15/2020 2:10 pm - Edison Romero MD at [facility] * 01/28/2021 2:10 pm - Ronnie Torres M.D. at [facility] Functional Status Description No Information Available Mental Status Description No Information Available Referrals Refer to Reason for Referral Status Appt Edison Romero M.D. 1 MONTH RECHECK Scheduled 07/06/[address] [place] [address] [phone]
--- OUTSIDE RECORDS SUMMARY | 2021-01-27 02:40 | CCD | Continuity of Care Document ---
Author Author Tylor ROMERO MD Organization Unknown Address [address] [place] [address] Phone [phone] Care Team Providers Care Melt House Centrifugal Operator Name Role Phone Birgit Zhao AUTM [phone] Pedro Cates M.D. AUTM [phone] AUTM Unavailable Problems Description No Information Available [...] 238gm K58.1 Ronnie marin M.D. 11/10/2020 Ipratropium [place] 0.06% Solution spray 2 sprays in each nostrils two times a day 15units Edison george MD 09/24/[address] once daily - take telehealth case manager on empty stomach - atleast 1/2 hour [...] lb BMI (Body Mass Index) 19.5 kg/m2 [place] Body Weight 118 lb Weight 48.252 kg BSA (Body Surface Area) 1.46 m2 11/10/2020 10:11am Height 62 inches 5'2" Weight 103.00 lb BMI (Body Mass Index) 18.8 kg/m2 [place] Body Weight 118 lb Weight 46.721 kg BSA (Body Surface Area) 1.44 m2 Results Description No Information Available Procedures Date Code Description Status 11/10/2020 49593 Office/Outpatient New Moderate M DM 45-59 Minutes Completed 09/24/2020 16067 Office/Outpatient Established Mo d MDM 30-39 Min Completed 07/06/2020 00994 Office/Outpatient Established Lo w MDM 20-29 Min Completed Medical Devices Description No Information Available Encounters Type Date Location Provider Dx Diagnosis Office Visit 11/10/2020 9:20a [facility] Gastroenterology [facility] florentino De Santiago M.D. K58.1 Irritable bowel syndrome wit h constipation Office Visit 09/24/2020 1:40p [facility] Edison Romero MD J31.0 Chronic rhinitis K21.9 Gastro-esophageal reflux dis ease without esophagitis Office Visit 07/06/2020 10:40a [facility] Edison Romero MD J31.0 Chronic [...] pm - [facility] Functional Status Description No Information Available Mental Status Description No Information Available Referrals Refer to Dr Reason for Referral Status Appt Edison Romero M.D. 1 MONTH RECHECK Scheduled 07/06/[address] [address] [phone]
--- OUTSIDE RECORDS SUMMARY | 2021-01-27 02:40 | CCD | Continuity of Care Document ---
Author Author Tylor TORRES M.D. Organization Unknown Address [address], [address] [place] [address] Phone [phone] Care Team Providers Care Poultry Hanger Name Role Phone Birgit Zhao AUTM [phone] Pedro Cates M.D. AUTM [phone] AUTM Unavailable Problems Description No Information Available [...] dinner) 60tabs Ronnie Torres M.D. 11/10/2020 Ipratropium [place] 0.06% Solution spray 2 sprays in each nostrils two times a day 15units Edison george MD 09/24/[address] once daily - take rebar fabricator on empty stomach - atleast 1/2 hour [...] Edison Romero MD 05/22/2020 History Medications Polysporin [id number]/GM Ointme nt apply ointment to each nostril three times a day for 10 days 14.200gm J31.0 Edison Romero MD 05/22/2020 - 03/27/2020 Immunizations Description No Information Available Vital Signs Date Vital Result Comment 11/10/2020 10:11am Height 62 inches 5'2" Weight 103.00 lb BMI (Body Mass Index) 18.8 kg/m2 [place] Body Weight 118 lb Weight 46.721 kg BSA (Body Surface Area) 1.44 m2 09/24/2020 1:07pm Height 62 inches 5'2" Weight 101.00 lb BMI (Body Mass Index) 18.5 kg/m2 [place] Body Weight 118 lb Weight 45.814 kg BSA (Body Surface Area) 1.43 m2 Results Test Acquired Date Facility Test Result H/L Range Note Laboratory test finding 05/22/2020 [facility] [address] [place], [place] [id number] [phone] Throat Culture FULL REPORT IN L <SEE NOTE> Normal 1 1 FULL REPORT IN LAB NOTES (eC W and Medent). NORMAL ROSALBA PRESENT Procedures Date Code Description Status 09/24/2020 36583 Office/Outpatient Established Mo d MDM 30-39 Min Completed 07/06/2020 20389 Office/Outpatient Established Lo w MDM 20-29 Min Completed 05/29/2020 51373 Office/Outpatient Established Lo w MDM 20-29 Min Completed 05/22/2020 88377 Office/Outpatient Established Lo w MDM 20-29 Min Completed 05/22/2020 23123 Laryngoscopy Flexible Fiberoptic Diagnostic Completed Medical Devices Description No Information Available Encounters Type Date Location Provider Dx Diagnosis Office Visit 09/24/2020 1:40p [facility] Edison Romero MD J31.0 Chronic rhinitis K21.9 Gastro-esophageal reflux dis ease without esophagitis Office Visit 07/06/2020 10:40a [facility] Edison Romero MD J31.0 Chronic rhinitis K21.9 Gastro-esophageal reflux dis ease without esophagitis Office Visit 05/29/2020 1:10p [facility] Edison Romero MD J31.0 Chronic rhinitis K21.9 Gastro-esophageal reflux dis ease without esophagitis Office Visit 05/22/2020 8:40a [facility] Edison Romero MD J31.0 Chronic rhinitis [...] 2:10 pm - Ronnie Torres M.D. at [facility] * 11/24/2020 3:00 pm - Edison Romero MD at [facility] 11/10/2020 - Ronnie Torres M.D.* K58.1 Irritable bowel syndrome with constipation* New Medication:* Miralax 17 GM/Scoop Functional Status Description No Information Available Mental Status Description No Information Available Referrals Refer to Dr Reason for Referral Status Appt Date Edison Romero M.D. 1 MONTH RECHECK Scheduled 07/06/[address] [place] [address], [place] [address] [phone] Ronnie Torres M.D. LT UPPER QUAD PAIN Scheduled 0 07/16/2020 [facility] [address], [address] [place] [address] [phone] Severiano Toney, R.P.A.-C. COUGH/ASTHMA Created [facility] [address] [place] [address] [phone]
--- OUTSIDE RECORDS SUMMARY | 2021-01-27 02:40 | CCD ---
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 04/10/2020 Left Upper Quadrant Pain; Anxiety; Liver Function Tests Abnormal; Difficulty Passing Urine; Thrombocytopenic Disorder Pedro Cates MD: [address] [place] [phone], Ph. 03/27/2020 Anxiety; Acquired Thrombocytopenia; Liver Function Tests Abnormal; Chest Pain; Gastroesophageal Reflux Disease without Esophagitis Pedro Cates MD: [address] [place] [phone], Ph. 03/11/2020 Acquired Thrombocytopenia; Elevated Liver Enzymes Level; Acute Bronchitis; Anxiety Pedro Cates MD: [address] [place] [phone], Ph. Social History Tobacco Smoking Status Former [...] Imaging None recorded. Vitals 11/12/2020 09:20AM ESTABLISHED [id number] Height Weight BMI Blood Pressure 62 in 102 lbs 6 oz 18.7 kg/m2 115/82 mm[Hg] 09/08/2020 11:00AM NURSE LAB COLLECTION Height 62 in 09/04/2020 01:00PM SAME DAY 20 Height Weight BMI Blood Pressure 62 in 93 lbs 6.4 oz 17.1 kg/m2 109/76 mm[Hg] 09/02/2020 01:40PM ESTABLISHED [id number] Height Weight BMI Blood Pressure 62 in 96 lbs 4 oz 17.6 kg/m2 110/71 mm[Hg] 07/29/2020 11:00AM SAME DAY 20 Height Weight BMI Blood Pressure 62 in 97 lbs 12.8 oz 17.9 kg/m2 143/94 mm[Hg ] 07/14/2020 10:00AM ESTABLISHED [id number] Height Weight BMI Blood Pressure 62 in 97 lbs 16 oz 17.9 kg/m2 112/73 mm[Hg] 05/14/2020 02:20PM WELL CHILD EXAM ADOL Height Weight BMI Blood Pressure 62 in 99 lbs 4 oz 18.2 kg/m2 110/68 mm[Hg] 05/05/2020 01:20PM ESTABLISHED [id number] Height Weight BMI Blood Pressure 62 in 99 lbs 12.8 oz 18.3 kg/m2 104/71 mm[Hg ] 04/30/2020 03:40PM ESTABLISHED [id number] Height Weight BMI Blood Pressure 62 in 100 lbs 8 oz 18.4 kg/m2 132/89 mm[Hg] 04/10/2020 09:00AM ESTABLISHED [id number] Height Weight BMI Blood Pressure 62 in 103 lbs 8 oz 18.9 kg/m2 108/77 mm[Hg] 03/27/2020 11:00AM SAME DAY 20 Height Weight BMI Blood Pressure 62 in 101 lbs 6 oz 18.5 kg/m2 102/70 mm[Hg] 03/11/2020 09:20AM ESTABLISHED [id number] Height Weight BMI Blood Pressure 62 in [...]
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
--- OUTSIDE RECORDS SUMMARY | 2021-01-27 02:40 | CCD | Continuity of Care Document ---
Author Author Tylor ROMERO MD Organization Unknown Address [address] [place] [address] Phone [phone] Care Team Providers Care [employer] Name Role Phone Birgit Zhao AUTM [phone] Pedro Cates M.D. AUTM [phone] AUTM Unavailable Problems Description No Information Available [...] 238gm K58.1 Ronnie marin M.D. 11/10/2020 Ipratropium [place] 0.06% Solution spray 2 sprays in each nostrils two times a day 15units Edison george MD 09/24/[address] once daily - take water engineer on empty stomach - atleast 1/2 hour [...] lb BMI (Body Mass Index) 19.5 kg/m2 [place] Body Weight 118 lb Weight 48.252 kg BSA (Body Surface Area) 1.46 m2 11/10/2020 10:11am Height 62 inches 5'2" Weight 103.00 lb BMI (Body Mass Index) 18.8 kg/m2 [place] Body Weight 118 lb Weight 46.721 kg BSA (Body Surface Area) 1.44 m2 Results Description No Information Available Procedures Date Code Description Status 12/15/2020 36092 Office/Outpatient Established Lo w MDM 20-29 Min Completed 11/10/2020 47119 Office/Outpatient New Moderate M DM 45-59 Minutes Completed 09/24/2020 11259 Office/Outpatient Established Mo d MDM 30-39 Min Completed 07/06/2020 29512 Office/Outpatient Established Lo w MDM 20-29 Min Completed Medical Devices Description No Information Available Encounters Type Date Location Provider Dx Diagnosis Office Visit 12/15/2020 2:10p [facility] Edison Romero MD J31.0 Chronic rhinitis K21.9 Gastro-esophageal reflux dis ease without esophagitis Office Visit 11/10/2020 9:20a [facility] Gastroenterology [facility] florentino De Santiago M.D. K58.1 Irritable bowel syndrome wit h constipation Office Visit 09/24/2020 1:40p [facility] ENT Practice Edison Romero MD J31.0 Chronic rhinitis K21.9 Gastro-esophageal reflux dis ease without esophagitis Office Visit 07/06/2020 10:40a [facility] E[facility] Practice Edison Romero MD J31.0 Chronic rhinitis K21.9 Gastro-esophageal reflux dis ease without esophagitis Assessments Date Code Description Provider 12/15/2020 J31.0 Chronic rhinitis Edison Romero MD 12/15/2020 K21.9 Gastro-esophageal reflux disease without esophagitis Edison Romero MD 11/10/2020 K58.1 Irritable bowel syndrome with co nstipation Ronnie De Santiago M.D. 09/24/2020 J31.0 Chronic rhinitis Edison Romero MD 09/24/2020 K21.9 Gastro-esophageal reflux disease without esophagitis Edison Romero MD 07/06/2020 J31.0 Chronic rhinitis Edison Romero MD 07/06/2020 K21.9 Gastro-esophageal reflux disease without esophagitis Edison Romero MD Plan of Treatment Future Appointment(s):* 01/28/2021 2:10 pm - Ronnie De Santiago M.D. at [facility] Gastroenterology Practice 12/15/2020 - Edison Romero MD* J31.0 Chronic rhinitis * K21.9 Gastro-esophageal reflux disease without esophagitis Functional Status Description No Information Available Mental Status Description No Information Available Referrals Refer to Reason for Referral Status Appt Edison Romero M.D. 1 MONTH RECHECK Scheduled 07/06/[address] [place] [address] [phone]
--- OUTSIDE RECORDS SUMMARY | 2021-01-27 02:40 | CCD | Continuity of Care Document ---
Author Author Tylor ROMERO MD Organization Unknown Address [address] [facility] [address] [place] [address] Phone [phone] Care Team Providers Care Search Planner Name Role Phone Birgit Zhao AUTM [phone] Pedro Cates M.D. AUTM [phone] AUTM Unavailable Problems Description No Information Available [...] 238gm K58.1 Ronnie marin M.D. 11/10/2020 Ipratropium [place] 0.06% Solution spray 2 sprays in each nostrils two times a day 15units Edison george MD 09/24/[address] once daily - take tele tech on empty stomach - atleast 1/2 hour [...] lb BMI (Body Mass Index) 19.5 kg/m2 [place] Body Weight 118 lb Weight 48.252 kg BSA (Body Surface Area) 1.46 m2 11/10/2020 10:11am Height 62 inches 5'2" Weight 103.00 lb BMI (Body Mass Index) 18.8 kg/m2 [place] Body Weight 118 lb Weight 46.721 kg BSA (Body Surface Area) 1.44 m2 Results Description No Information Available Procedures Date Code Description Status 11/10/2020 44695 Office/Outpatient New Moderate M DM 45-59 Minutes Completed 09/24/2020 48675 Office/Outpatient Established Mo d MDM 30-39 Min Completed 07/06/2020 82055 Office/Outpatient Established Lo w MDM 20-29 Min Completed Medical Devices Description No Information Available Encounters Type Date Location Provider Dx Diagnosis Office Visit 11/10/2020 9:20a [facility] Gastroenterology [facility] florentino De Santiago M.D. K58.1 Irritable bowel syndrome wit h constipation Office Visit 09/24/2020 1:40p [facility] ENT Practice Edison Romero MD J31.0 Chronic rhinitis K21.9 Gastro-esophageal reflux dis ease without esophagitis Office Visit 07/06/2020 10:40a [facility] ENT Practice Edison Romero MD J31.0 Chronic rhinitis K21.9 Gastro-esophageal reflux dis ease without esophagitis Assessments Date Code Description Provider 11/10/2020 K58.1 Irritable bowel syndrome with co nstipation Ronnie De Santigao M.D. 09/24/2020 J31.0 Chronic rhinitis Edison Romero MD 09/24/2020 K21.9 Gastro-esophageal reflux disease without esophagitis Edison Romero MD 07/06/2020 J31.0 Chronic rhinitis Edison Romero MD 07/06/2020 K21.9 Gastro-esophageal reflux disease without esophagitis Edison Romero MD Plan of Treatment Future Appointment(s):* 01/28/2021 2:10 pm - [facility] Functional Status Description No Information Available Mental Status Description No Information Available Referrals Refer to Dr Reason for Referral Status Appt Edison Romero M.D. 1 MONTH RECHECK Scheduled 07/06/[address] [address] [phone]
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
--- OUTSIDE RECORDS SUMMARY | 2021-01-27 02:49 | CCD ---
Author Author [facility] Organization [facility] Address Unknown Phone Unavailable Support Name Relationship Address Phone Pedro Cates MD Next Of Kin [address] [place] [address] [place] Next Of Kin Unknown Unavailable Vance Hanson MD Next Of Kin [address] [place] [address] DISABLED Next Of Kin Unknown Unavailable UNEMPLOYED Next Of Kin Unknown [facility] Next Of Kin [address] [place] [address] [facility] Next Of Kin [facility] [place] [address] Nu ALDANA Next Of Kin [address] [facility] [address] [place] [address] ISSA ELIZABETH Next Of Kin [address] [facility] [address] [place] [address] ALIDA GALINDO Next Of Kin [address] [place] [address] SEEMA GALINDO Next [place] Kin [address] [place] [address] UE Next Of Kin Unknown Unavailable JOVAN, LEGAL GUARDIAN ELIZABETH Next Of Kin [address] [facility] [address] [place] [address] ST Next Of Kin Unknown Unavailable TITIELIZABETH Next Of Kin [address] [facility] [address] [place] [address] TITIELIZABETH ECON [address] [facility] [address] [place] [address] [phone] Care Team Providers Care Chief Mechanical Engineer Name Role Phone Francisca Cates MD Unavailable [...] Unavailable Francisca Cates MD Unavailable Unavailable Francisca Caets MD Unavailable Unavailable Francisca Cates MD Unavailable [...] MD Unavailable Unavailable ALYX ORDAZ Unavailable Unavailable Claudia Rich Unavailable [phone] Karl Gomez MD Unavailable Unavailable Patricia B Stephen CHÁVEZ Unavailable Unavailable Patricia B Stephen CHÁVEZ Unavailable Unavailable Patricia B Stephen CHÁVEZ Unavailable Unavailable Patricia B Stephen CHÁVEZ Unavailable Unavailable Patricia B Stephen CHÁVEZ Unavailable Unavailable PatriciaKarl MD Unavailable Unavailable Patricia B Stephen CHÁVEZ Unavailable Unavailable Patricia B Stephen CHÁVEZ Unavailable Unavailable Patricia B Stephen CHÁVEZ Unavailable Unavailable Patricia B Stephen CHÁVEZ Unavailable Unavailable Patricia B Stephen CHÁVEZ Unavailable Unavailable Patricia B Stephen CHÁVEZ Unavailable Unavailable Patricia B Stephen CHÁVEZ Unavailable Unavailable Patricia B Stephen CHÁVEZ Unavailable Unavailable Patricia B Stephen CHÁVEZ Unavailable Unavailable Patricia B Stephen CHÁVEZ Unavailable Unavailable PatriciaKarl MD Unavailable Unavailable Patricia B Stephen CHÁVEZ Unavailable Unavailable Patricia B Stephen CHÁVEZ Unavailable Unavailable Patricia B Stephen CHÁVEZ Unavailable Unavailable Patricia B Stephen CHÁVEZ Unavailable Unavailable Patricia B Stephen CHÁVEZ Unavailable Unavailable PatriciaKarl MD Unavailable Unavailable Patricia B Stephen CHÁVEZ Unavailable Unavailable Patricia B Stephen CHÁVEZ Unavailable Unavailable Patricia B Stephen CHÁVEZ Unavailable Unavailable Patricia B Stephen CHÁVEZ Unavailable Unavailable Patricia, B Stephen CHÁVEZ Unavailable Unavailable Patricia B Stephen CHÁVEZ Unavailable Unavailable Patricia B Stephen CHÁVEZ Unavailable Unavailable Patricia B Stephen CHÁVEZ Unavailable Unavailable Patricia B Stephen CHÁVEZ Unavailable Unavailable Karl Gomez MD Unavailable Unavailable Patricia, B Stephen CHÁVEZ Unavailable Unavailable Pavel, A Birgit IT ADMINISTRATIVE ASSISTANT Unavailable Unavailable Galt, A Birgit IT ADMINISTRATIVE ASSISTANT Unavailable Unavailable Galt, A Birgit IT ADMINISTRATIVE ASSISTANT Unavailable Unavailable Galt, A Birgit IT ADMINISTRATIVE ASSISTANT Unavailable Unavailable Galt, A Birgit IT ADMINISTRATIVE ASSISTANT Unavailable Unavailable Galt, A Birgit IT ADMINISTRATIVE ASSISTANT Unavailable Unavailable Galt, A Birgit IT ADMINISTRATIVE ASSISTANT Unavailable Unavailable Galt, A Birgit IT ADMINISTRATIVE ASSISTANT Unavailable Unavailable Galt, A Birgit IT ADMINISTRATIVE ASSISTANT Unavailable Unavailable Galt, A Birgit IT ADMINISTRATIVE ASSISTANT Unavailable Unavailable Galt, A Birgit IT ADMINISTRATIVE ASSISTANT Unavailable Unavailable Galt, A Birgit IT ADMINISTRATIVE ASSISTANT Unavailable Unavailable Galt, A Birgit IT ADMINISTRATIVE ASSISTANT Unavailable Unavailable Galt, A Birgit IT ADMINISTRATIVE ASSISTANT Unavailable Unavailable Galt, A Birgit IT ADMINISTRATIVE ASSISTANT Unavailable Unavailable Galt, A Birgit IT ADMINISTRATIVE ASSISTANT Unavailable Unavailable Galt, A Birgit IT ADMINISTRATIVE ASSISTANT Unavailable Unavailable Galt, A Birgit IT ADMINISTRATIVE ASSISTANT Unavailable Unavailable Galt, A Birgit IT ADMINISTRATIVE ASSISTANT Unavailable Unavailable Galt, A Birgit IT ADMINISTRATIVE ASSISTANT Unavailable Unavailable Galt, A Birgit IT ADMINISTRATIVE ASSISTANT Unavailable Unavailable Galt, A Birgit IT ADMINISTRATIVE ASSISTANT Unavailable Unavailable Galt, A Birgit IT ADMINISTRATIVE ASSISTANT Unavailable Unavailable Galt, A Birgit IT ADMINISTRATIVE ASSISTANT Unavailable Unavailable Galt, A Birgit IT ADMINISTRATIVE ASSISTANT Unavailable Unavailable Galt, A Birgit IT ADMINISTRATIVE ASSISTANT Unavailable Unavailable Galt, A Birgit IT ADMINISTRATIVE ASSISTANT Unavailable Unavailable Galt, A Birgit IT ADMINISTRATIVE ASSISTANT Unavailable Unavailable Galt, A Birgit IT ADMINISTRATIVE ASSISTANT Unavailable Unavailable Galt, A Birgit IT ADMINISTRATIVE ASSISTANT Unavailable Unavailable Galt, A Birgit IT ADMINISTRATIVE ASSISTANT Unavailable Unavailable SUSHMA, S CHRISTOPHER DO Unavailable [...] Unavailable SUSHMA, S CHRISTOPHER DO Unavailable Unavailable Edison Romero MD Unavailable Unavailable Edison Romero MD Unavailable Unavailable Edison Romero MD Unavailable Unavailable Edison Romero MD Unavailable Unavailable Edison Romero MD Unavailable Unavailable Edison Romero MD Unavailable Unavailable dEison Romero MD Unavailable Unavailable Edison Romero MD Unavailable Unavailable Edison Romero MD Unavailable Unavailable Edison Romero MD Unavailable Unavailable Edison Romero MD Unavailable Unavailable Edison Romero MD Unavailable Unavailable Edison Romero MD Unavailable Unavailable Edison Romero MD Unavailable Unavailable Edison Romero MD Unavailable Unavailable Edison Romero MD Unavailable Unavailable Edison Romero MD Unavailable Unavailable Edison Romero MD Unavailable Unavailable TallahasseeEdison clark MD Unavailable Unavailable TallahasseeEdison clark MD Unavailable Unavailable TallahasseeEdison clark MD Unavailable Unavailable Edison Romero MD Unavailable Unavailable Edison Romero MD Unavailable Unavailable Edison Romero MD Unavailable Unavailable Edison Romero MD Unavailable Unavailable Edison Romero MD Unavailable Unavailable Edison Romero MD Unavailable Unavailable Edison Romero MD Unavailable Unavailable Edison Romero MD Unavailable Unavailable Edison Romero MD Unavailable Unavailable Edison Romero MD Unavailable Unavailable Frantz Bello Unavailable Frantz Bello Unavailable Sam TORRES MD Unavailable Unavailable Sam TORRES MD Unavailable Unavailable Sam TORRES MD Unavailable Unavailable Sam TORRES MD Unavailable Unavailable Sam TORRES MD Unavailable Unavailable Sam TORRES MD Unavailable Unavailable Sam TORRES MD Unavailable Unavailable Sam TORRES MD Unavailable Unavailable Sam TORRES MD Unavailable Unavailable Sam TORRES MD Unavailable Unavailable Sam TORRES MD Unavailable Unavailable Sam TORRES MD Unavailable Unavailable Sam TORRES MD Unavailable Unavailable Sam TORRES MD Unavailable Unavailable Sam TORRES MD Unavailable Unavailable Sam TORRES MD Unavailable Unavailable Sam TORRES MD Unavailable Unavailable Sam TORRES MD Unavailable Unavailable Sam TORRES MD Unavailable Unavailable Sam TORRES MD Unavailable Unavailable Sam TORRES MD Unavailable Unavailable Sam TORRES MD Unavailable Unavailable Sam TORRES MD Unavailable Unavailable Sam TORRES MD Unavailable Unavailable Sam TORRES MD Unavailable Unavailable Sam TORRES MD Unavailable Unavailable Sam TORRES MD Unavailable Unavailable Sam TORRES MD Unavailable Unavailable Sam TORRES MD Unavailable Unavailable Sam TORRES MD Unavailable Unavailable Sam TORRES MD Unavailable Unavailable Sam TORRES MD Unavailable Unavailable Sam TORRES MD Unavailable Unavailable Re-disclosure Warning The records [...] is protected by Article 27-F of the [facility] Public Health law. If you continue you may have access to information: Regarding HIV / AIDS; Provided by facilities licensed or operated by the [facility] Office of Mental Health; or Provided by the [facility] Office for People With Developmental Disabilities. If such information is present, then the following [facility] mandated warning applies: This information has been [...] law may result in a fine or mcc sentence or both. A general authorization for the release of medical or other information is NOT sufficient authorization for further disc losure. Allergies and Adverse Reactions Type Description Substance Reaction Status Data Source(s ) Allergy to substance Moderate Doxycycline Rash ATH [facility]UTIERREZ ([facility]) Allergy to substance Moderate Doxycycline Rash ATH GUTIERREZ ([facility]) Allergy to substance Moderate Doxycycline Rash ATH GUTIERREZ ([facility]) Allergy to substance Moderate Doxycycline Rash ATH GUTIERREZ ([facility]) Allergy to substance Moderate Doxycycline Rash ATH GUTIERREZ ([facility]) Allergy to substance Moderate Doxycycline Rash ATH GUTIERREZ ([facility]) Allergy to substance Moderate Doxycycline Rash ATH GUTIERREZ ([facility]) Allergy to substance Moderate Doxycycline Rash ATH GUTIERREZ ([facility]) Allergy to substance Moderate Doxycycline Rash ATH GUTIERREZ ([facility]) Allergy to substance Moderate Doxycycline Rash ATH GUTIERREZ ([facility]) Allergy to substance Moderate Doxycycline Rash ATH GUTIERREZ ([facility]) Allergy to substance Moderate Doxycycline Rash ATH GUTIERREZ ([facility]) Allergy to substance Moderate Doxycycline Rash ATH GUTIERREZ ([facility]) Allergy to substance Moderate Doxycycline Rash ATH GUTIERREZ ([facility]) Allergy to substance Moderate Doxycycline Rash ATH GUTIERREZ ([facility]) Allergy to substance Moderate Doxycycline Rash ATH GUTIERREZ ([facility]) Allergy to substance Allergy to substance Penicillin [facility] ([facility]) Allergy to substance Allergy to substance Amoxicillin [facility] ([facility]) Allergy to substance Allergy to substance Penicillin [facility] ([facility]) Allergy to substance Allergy to substance Amoxicillin [facility] ([facility]) Allergy to substance Allergy to substance Penicillin [facility] ([facility]) Allergy to substance Allergy to substance Amoxicillin [facility] ([facility]) Allergy to substance Allergy to substance Penicillin [facility] ([facility]) Allergy to substance Allergy to substance Amoxicillin [facility] ([facility]) Allergy to substance Allergy to substance Penicillin [facility] ([facility]) Allergy to substance Allergy to substance Amoxicillin [facility] ([facility]) Allergy to substance Allergy to substance Penicillin [facility] ([facility]) Allergy to substance Allergy to substance Amoxicillin [facility] ([facility]) Allergy to substance Allergy to substance Penicillin [facility] ([facility]) Allergy to substance Allergy to substance Amoxicillin [facility] ([facility]) Allergy to substance Allergy to substance Penicillin [facility] ([facility]) Allergy to substance Allergy to substance Amoxicillin [facility] ([facility]) Allergy to substance Allergy to substance Penicillin [facility] ([facility]) Allergy to substance Allergy to substance Amoxicillin [facility] ([facility]) Allergy to substance Allergy to substance Penicillin [facility] ([facility]) Allergy to substance Allergy to substance Amoxicillin [facility] ([facility]) Allergy to substance Allergy to substance Penicillin [facility] ([facility]) Allergy to substance Allergy to substance Amoxicillin [facility] ([facility]) Allergy to substance Allergy to substance Penicillin [facility] ([facility]) Allergy to substance Allergy to substance Amoxicillin [facility] ([facility]) Allergy to substance Allergy to substance Penicillin [facility] ([facility]) Allergy to substance Allergy to substance Amoxicillin [facility] ([facility]) Allergy to substance Allergy to substance Clarithromycin [facility] ([facility]) Allergy to substance Allergy to substance Clarithromycin [facility] ([facility]) Allergy to substance Allergy to substance Clarithromycin [facility] ([facility]) Allergy to substance Allergy to substance Clarithromycin [facility] ([facility]) Allergy to substance Allergy to substance Clarithromycin [facility] ([facility]) Allergy to substance Allergy to substance Clarithromycin [facility] ([facility]) Allergy to substance Allergy to substance Clarithromycin [facility] ([facility]) Allergy to substance Allergy to substance Clarithromycin [facility] ([facility]) Allergy to substance Allergy to substance Clarithromycin [facility] ([facility]) Allergy to substance Allergy to substance Clarithromycin [facility] ([facility]) Allergy to substance Allergy to substance Clarithromycin [facility] ([facility]) Allergy to substance Allergy to substance Clarithromycin [facility] ([facility]) Allergy to substance Allergy to substance Clarithromycin [facility] ([facility]) Family History Family Member Name Family Member Gender Family Member Status Date o f Status Description Data Source(s) Unknown Unknown Problem [facility] Encounters Encounter Providers Location Date Indications Data Source(s ) Outpatient Attender: Stephen Gomez MD 03/01/2021 12:00:0 0 AM [facility]ia [facility] [address] [place] [address], Ph. Attender: Claudia [facility] Medical 12/29/2020 12:00:00 AM EDT [facility] ([facility]) Pedro Cates MD: [address] [place] [address], Ph. Attender: Pedro Cates MD [facility] Medical 12/18/2020 12:00:00 AM EDT [facility] ([facility]) Pedro Cates MD: [address] [place] [address], Ph. Attender: Pedro Cates MD [facility] Medical 12/18/2020 12:00:00 AM EDT [facility] ([facility]) Pedro Cates MD: [address] [place] [address], Ph. Attender: Pedro Cates MD [facility] Medical 12/18/2020 12:00:00 AM EDT [facility] ([facility]) Outpatient Attender: Edison Pop/Heather/Anand/Talya chaidez 12/15/2020 02:10:00 PM EDT MEDENT ([facility], ) Claudia Rich, [facility] [address] [place] [address], Ph. Attender: Claudia Rich [facility] Medical 11/18/2020 12:00:00 AM EDT [place] ([facility]) Claudia Rich, [facility] [address] [place] [address], Ph. Attender: Claudia Rich [facility] Medical 11/18/2020 12:00:00 AM EDT [facility] ([facility]) Claudia Rich, [facility] [address] [place] [address], Ph. Attender: Claudia Rich [facility] Medical 11/18/2020 12:00:00 AM EDT [facility] ([facility]) Claudia Rich, [facility] [address] [place] [address], Ph. Attender: Claudia Rich [facility] Medical 11/18/2020 12:00:00 AM EDT [facility] ([facility]) Pedro Cates MD: [address] [place] [address], Ph. Attender: Pedro Cates MD [facility] Medical 11/12/2020 12:00:00 AM EDT [facility] ([facility]) Pedro Cates MD: [address] [place] [address], Ph. Attender: Pedro Cates MD [facility] Medical 11/12/2020 12:00:00 AM EDT [facility] ([facility]) Pedro Cates MD: [address] [place] [address], Ph. Attender: Pedro Cates MD [facility] Medical 11/12/2020 12:00:00 AM EDT [facility] ([facility]) Pedro Cates MD: [address] [place] [address], Ph. Attender: Pedro Cates MD [facility] Medical 11/12/2020 12:00:00 AM EDT [facility] ([facility]) Pedro Cates MD: [address] [place] [address], Ph. Attender: Pedro Cates MD [facility] Medical 11/12/2020 12:00:00 AM EDT [facility] ([facility]) Outpatient Attender: PHILIPPE Pop/Heather/Venu brooks/Mary 11/10/2020 09:20:00 AM EDT [facility] ([facility] Pedro Cates MD: [address] [place] [address], Ph. Attender: Pedro Caets MD [facility] Medical 10/15/2020 12:00:00 AM EDT [facility] ([facility]) Pedro Cates MD: [address] [place] [address], Ph. Attender: Pedro Cates MD [facility] Medical 10/15/2020 12:00:00 AM EDT [facility] ([facility]) Pedro Cates MD: [address] [place] [address], Ph. Attender: Pedro Cates MD [facility] Medical 10/15/2020 12:00:00 AM EDT [facility] ([facility]) Pedro Cates MD: [address] [place] [address], Ph. Attender: Pedro Cates MD [facility] Medical 10/15/2020 12:00:00 AM EDT [facility] ([facility]) Pedro Cates MD: [address] [place] [address], Ph. Attender: Pedro Cates MD [facility] Medical 10/15/2020 12:00:00 AM EDT [facility] ([facility]) Outpatient Attender: Edison Pop/Heather/Anand/Talya chaidez 09/24/2020 01:40:00 PM EDT [facility] ([facility] Pedro Cates MD: [address] [place] [address], Ph. Attender: Pedro Cates MD [facility] 09/08/2020 12:00:00 AM EDT [facility] ([facility]) Claudia Rich [facility] [address] [place] [address], Ph. Attender: Claudia Rich [facility] Medical 09/08/2020 12:00:00 AM EDT [facility] ([facility]) Pedro Cates MD: [address] [place] [address], Ph. Attender: Pedro Cates MD [facility] Medical 09/08/2020 12:00:00 AM EDT [facility] ([facility]) Claudia Andradefelix, [facility] [address] [place] [address], Ph. Attender: Claudia Rich [facility] Medical 09/08/2020 12:00:00 AM EDT [facility] ([facility]) Pedro Cates MD: [address] [place] [address], Ph. Attender: Pedro Cates MD [facility] Medical 09/08/2020 12:00:00 AM EDT [facility] ([facility]) Claudialuis m Andradefelix [facility] [address] [place] [address], Ph. Attender: Claudia Rich [facility] Medical 09/08/2020 12:00:00 AM EDT [facility] ([facility]) Pedro Cates MD: [address] [place] [address], Ph. Attender: Pedro Cates MD [facility] Medical 09/08/2020 12:00:00 AM EDT [facility] ([facility]) Claudialuis m Andradefelix [facility]: [address] [place] [address], Ph. Attender: Claudialuis m Rich [facility] Medical 09/08/2020 12:00:00 AM EDT [facility] ([facility]) Pedro Cates MD: [address] [place] [address], Ph. Attender: Pedro Cates MD [facility] Medical 09/08/2020 12:00:00 AM EDT [facility] ([facility]) Claudia Rich [facility] [address] [place] [address], Ph. Attender: Claudia Lupefelix [facility] Medical 09/08/2020 12:00:00 AM EDT [facility] ([facility]) Pedro Cates MD: [address] [place] [address], Ph. Attender: Pedro Cates MD [facility] Medical 09/08/2020 12:00:00 AM EDT [facility] ([facility]) Claudia Andradefelix [facility] [address] [place] [address], Ph. Attender: Claudia Rich [facility] Medical 09/08/2020 12:00:00 AM EDT [facility] ([facility]) Pedro Cates MD: [address] [place] [address], Ph. Attender: Pedro Cates MD [facility] Medical 09/08/2020 12:00:00 AM EDT [facility] ([facility]) Claudia Rich [facility] [address] [place] [address], Ph. Attender: Claudia Rich [facility] Medical 09/08/2020 12:00:00 AM EDT [facility] ([facility]) Pedro Cates MD: [address] [place] [address], Ph. Attender: Pedro Cates MD [facility] Medical 09/08/2020 12:00:00 AM EDT [facility] ([facility]) Claudia Rich [facility] [address] [place] [address], Ph. Attender: Claudia Rich [facility] 09/08/2020 12:00:00 AM EDT [facility] ([facility]) Pedro Cates MD: [address] [place] [address], Ph. Attender: Pedro Cates MD [facility] Medical 09/04/2020 12:00:00 AM EDT [facility] ([facility]) Pedro Cates MD: [address] [place] [address], Ph. Attender: Pedro Cates MD [facility] Medical 09/04/2020 12:00:00 AM EDT [facility] ([facility]) Pedro Cates MD: [address] [place] [address], Ph. Attender: Pedro Cates MD [facility] Medical 09/04/2020 12:00:00 AM EDT [facility] ([facility]) Pedro Cates MD: [address] [place] [address], Ph. Attender: Pedro Cates MD [facility] Medical 09/04/2020 12:00:00 AM EDT [facility] ([facility]) Pedro Cates MD: [address] [place] [address], Ph. Attender: Pedro Cates MD [facility] Medical 09/04/2020 12:00:00 AM EDT [facility] ([facility]) Pedro Cates MD: [address] [place] [address], Ph. Attender: Pedro Cates MD [facility] Medical 09/04/2020 12:00:00 AM EDT [facility] ([facility]) Pedro Cates MD: [address] [place] [address], Ph. Attender: Pedro Cates MD [facility] Medical 09/04/2020 12:00:00 AM EDT [facility] ([facility]) Pedro Cates MD: [address] [place] [address], Ph. Attender: Pedro Cates MD [facility] Medical 09/04/2020 12:00:00 AM EDT [place] ([facility]) Pedro Cates MD: [address] [place] [address], Ph. Attender: Pedro Cates MD [facility] Medical 09/04/2020 12:00:00 AM EDT [facility] ([facility]) Pedro Cates MD: [address] [place] [address], Ph. Attender: Pedro Cates MD [facility] Medical 09/02/2020 12:00:00 AM EDT [facility] ([facility]) Pedro Cates MD: [address] [place] [address], Ph. Attender: Pedro Cates MD [facility] Medical 09/02/2020 12:00:00 AM EDT [facility] ([facility]) Pedro Cates MD: [address] [place] [address], Ph. Attender: Pedro Cates MD [facility] Medical 09/02/2020 12:00:00 AM EDT [facility] ([facility]) Pedro Cates MD: [address] [place] [address], Ph. Attender: ePdro Cates MD [facility] Medical 09/02/2020 12:00:00 AM EDT [facility] ([facility]) Pedro Cates MD: [address] [place] [address], Ph. Attender: Pedro Cates MD [facility] Medical 09/02/2020 12:00:00 AM EDT [facility] ([facility]) Pedro Cates MD: [address] [place] [address], Ph. Attender: Pedro Cates MD [facility] Medical 09/02/2020 12:00:00 AM EDT [facility] ([facility]) Pedro Cates MD: [address] [place] [address], Ph. Attender: Pedro Cates MD [facility] Medical 09/02/2020 12:00:00 AM EDT [facility] ([facility]) Pedro Cates MD: [address] [place] [address], Ph. Attender: Pedro Cates MD [facility] Medical 09/02/2020 12:00:00 AM EDT [facility] ([facility]) Pedro Cates MD: [address] [place] [address], Ph. Attender: Pedro Cates MD [facility] Medical 09/02/2020 12:00:00 AM EDT [facility] ([facility]) Pedro Cates MD: [address] [place] [address], Ph. Attender: Pedro Cates MD [facility] Medical 09/02/2020 12:00:00 AM EDT [facility] ([facility]) Pedro Cates MD: [address] [place] [address], Ph. Attender: Pedro Cates MD [facility] Medical 08/25/2020 12:00:00 AM EDT [facility] ([facility]) Pedro Cates MD: [address] [place] [address], Ph. Attender: Pedro Cates MD [facility] Medical 08/25/2020 12:00:00 AM EDT [facility] ([facility]) Pedro Cates MD: [address] [place] [address], Ph. Attender: Pedro Cates MD [facility] Medical 08/25/2020 12:00:00 AM EDT [facility] ([facility]) Pedro Cates MD: [address] [place] [address], Ph. Attender: Pedro Cates MD [facility] Medical 08/25/2020 12:00:00 AM EDT [facility] ([facility]) Pedro Cates MD: [address] [place] [address], Ph. Attender: Pedro Cates MD [facility] Medical 08/25/2020 12:00:00 AM EDT [facility] ([facility]) Pedro Cates MD: [address] [place] [address], Ph. Attender: Pedro Cates MD [facility] Medical 08/25/2020 12:00:00 AM EDT [facility] ([facility]) Pedro Cates MD: [address] [place] [address], Ph. Attender: Pedro Cates MD [facility] Medical 08/25/2020 12:00:00 AM EDT [facility] ([facility]) Pedro Cates MD: [address] [place] [address], Ph. Attender: Pedro Cates MD [facility] Medical 08/25/2020 12:00:00 AM EDT [place] ([facility]) Pedro Cates MD: [address] [place] [address], Ph. Attender: Pedro Cates MD [facility] Medical 08/25/2020 12:00:00 AM EDT [place] ([facility]) Pedro Cates MD: [address] [place] [address], Ph. Attender: Pedro Cates MD [facility] Medical 08/25/2020 12:00:00 AM EDT [place] ([facility]) Claudia Rich [facility]: [address], [place] [address], Ph. Attender: Claudia Rich [facility] Medical 08/06/2020 12:00:00 AM EDT [place] ([facility]) Claudia Rich [facility]: [address], [place] [address], Ph. Attender: Claudia Rich [facility] Medical 08/06/2020 12:00:00 AM EDT [place] ([facility]) Claudia Rich [facility]: [address] [place] [address], Ph. Attender: Claudia Rich [facility] Medical 08/06/2020 12:00:00 AM EDT [place] ([facility]) Claudia Rich [facility]: [address], [place] [address], Ph. Attender: Claudia Rich [facility] Medical 08/06/2020 12:00:00 AM EDT [place] ([facility]) Claduia Rich [facility]: [address], [place] [address], Ph. Attender: Claudia Rich [facility] Medical 08/06/2020 12:00:00 AM EDT [place] ([facility]) Claudia Rich, [facility]: [address] [place] [address], Ph. Attender: Claudia Rich [facility] Medical 08/06/2020 12:00:00 AM EDT [place] ([facility]) Claudia Rich, [facility]: [address] [place] [address], Ph. Attender: Claudia Rich [facility] Medical 08/06/2020 12:00:00 AM EDT [facility]) Claudia Rich, [facility]: [address] [place] [address], Ph. Attender: Claudia Rich [facility] Medical 08/06/2020 12:00:00 AM EDT [facility] ([facility]) Claudia Rich, [facility]: [address] [place] [address], Ph. Attender: Claudia Rich [facility] Medical 08/06/2020 12:00:00 AM EDT [facility] ([facility]) Claudia Rich, [facility]: [address] [place] [address], Ph. Attender: Claudia Rich [facility] Medical 08/06/2020 12:00:00 AM EDT [facility] ([facility]) Claudia Rich, [facility]: [address] [place] [address], Ph. Attender: Claudia Rich [facility] Medical 08/06/2020 12:00:00 AM EDT [facility] ([facility]) Pedro Cates MD: [address], [address], [place] [address], Ph. Attender: Pedro Cates MD [facility] Medical 07/29/2020 12:00:00 AM EDT [facility] ([facility]) Pedro Cates MD: [address], [address], [place] [address], Ph. Attender: Pedro Cates MD [facility] Medical 07/29/2020 12:00:00 AM EDT [facility] ([facility]) Pedro Caets MD: [address], [address], [place] [address], Ph. Attender: Pdero Cates MD [facility] Medical 07/29/2020 12:00:00 AM EDT [facility] ([facility]) Pedro Cates MD: [address], [address], [place] [address], Ph. Attender: Pedro Cates MD [facility] Medical 07/29/2020 12:00:00 AM EDT [facility] ([facility]) Pedro Cates MD: [address], [address], [place] [address], Ph. Attender: Pedro Cates MD [facility] Medical 07/29/2020 12:00:00 AM EDT [facility] ([facility]) Pedro Cates MD: [address], [address], [place] [address], Ph. Attender: Pedro Cates MD [facility] Medical 07/29/2020 12:00:00 AM EDT [facility] ([facility]) Pedro Cates MD: [address], [address], [place] [address], Ph. Attender: Pedro Cates MD [facility] Medical 07/29/2020 12:00:00 AM EDT [facility] ([facility]) Pedro Cates MD: [address], [address], [place] [address], Ph. Attender: Pedro Cates MD [facility] Medical 07/29/2020 12:00:00 AM EDT [facility] ([facility]) Pedro Cates MD: [address], [address], [place] [address], Ph. Attender: Pedro Cates MD [facility] Medical 07/29/2020 12:00:00 AM EDT [facility] ([facility]) Pedro Cates MD: [address], [address], [place] [address], Ph. Attender: Pedro Cates MD [facility] Medical 07/29/2020 12:00:00 AM EDT [facility] ([facility]) Pedro Cates MD: [address], [address], [place] [address], Ph. Attender: Pedro Cates MD [facility] Medical 07/29/2020 12:00:00 AM EDT [facility] ([facility]) Pedro Cates MD: [address], [address], [place] [address], Ph. Attender: Pedro Cates MD [facility] Medical 07/29/2020 12:00:00 AM EDT [facility] ([facility]) Pedro Cates MD: [address] [place] [address], Ph. Attender: Pedro Cates MD [facility] Medical 07/14/2020 12:00:00 AM EDT [facility] ([facility]) Pedro Cates MD: [address] [place] [address], Ph. Attender: Pedro Cates MD [facility] Medical 07/14/2020 12:00:00 AM EDT [facility] ([facility]) Pedro Cates MD: [address] [place] [address], Ph. Attender: Pedro Cates MD [facility] Medical 07/14/2020 12:00:00 AM EDT [facility] ([facility]) Pedro Cates MD: [address] [place] [address], Ph. Attender: Pedro Cates MD [facility] Medical 07/14/2020 12:00:00 AM EDT [facility] ([facility]) Pedro Cates MD: [address] [place] [address], Ph. Attender: Pedro Cates MD [facility] Medical 07/14/2020 12:00:00 AM EDT [facility] ([facility]) Pedro Cates MD: [address] [place] [address], Ph. Attender: Pedro Cates MD [facility] Medical 07/14/2020 12:00:00 AM EDT [facility] ([facility]) Pedro Cates MD: [address] [place] [address], Ph. Attender: Pedro Cates MD [facility] Medical 07/14/2020 12:00:00 AM EDT [facility] ([facility]) Pedro Cates MD: [address] [place] [address], Ph. Attender: Pedro Cates MD [facility] Medical 07/14/2020 12:00:00 AM EDT [facility] ([facility]) Pedro Cates MD: [address] [place] [address], Ph. Attender: Pedro Cates MD [facility] Medical 07/14/2020 12:00:00 AM EDT [facility] ([facility]) Pedro Cates MD: [address] [place] [address], Ph. Attender: Pedro Cates MD [facility] Medical 07/14/2020 12:00:00 AM EDT [facility] ([facility]) Pedro Cates MD: [address] [place] [address], Ph. Attender: Pedro Cates MD [facility] Medical 07/14/2020 12:00:00 AM EDT [facility] ([facility]) Pedro Cates MD: [address] [place] [address], Ph. Attender: Pedro Cates MD [facility] Medical 07/14/2020 12:00:00 AM EDT [facility] ([facility]) Pedro Cates MD: [address] [place] [address], Ph. Attender: Pedro Cates MD [facility] Medical 07/14/2020 12:00:00 AM EDT [facility] ([facility]) Outpatient Attender: Edison Pop/Heather/Anand/Talya chaidez 07/06/2020 10:40:00 AM EDT [facility] ([facility] Claudia Rich [facility]: [address] [place] [address], Ph. Attender: Claudia Rich [facility] Medical 06/25/2020 12:00:00 AM EDT [place] ([facility]) Claudia Rich, [facility]: [address], [facility] [place] [address], Ph. Attender: Claudia Rich [facility] Medical 06/25/2020 12:00:00 AM EDT [facility]) Claudia Rich, [facility]: [address], [facility] [place] [address], Ph. Attender: Claudia Rich [facility] Medical 06/25/2020 12:00:00 AM EDT [facility]) Claudia Rich, [facility]: [address], [facility] [place] [address], Ph. Attender: Claudia Rich [facility] Medical 06/25/2020 12:00:00 AM EDT [facility]) Claudia Rich, [facility]: [address], [facility] [place] [address], Ph. Attender: Claudia Rich [facility] Medical 06/25/2020 12:00:00 AM EDT [place] ([facility]) Claudia Rich, [facility]: [address], [facility] [place] [address], Ph. Attender: Claudia Rich [facility] Medical 06/25/2020 12:00:00 AM EDT [place] ([facility]) Claudia Rich, [facility]: [address], [place] [address], Ph. Attender: Claudia Rich [facility] Medical 06/25/2020 12:00:00 AM EDT [facility]) Claudia Rich, [facility]: [address], [place] [address], Ph. Attender: Claudia Rich [facility] Medical 06/25/2020 12:00:00 AM EDT [facility]) Claudia Rich, [facility]: [address] [place] [address], Ph. Attender: Claudia Rich [facility] Medical 06/25/2020 12:00:00 AM [facility] Claudia Rich, [facility]: [address] [place] [address], Ph. Attender: Claudia Rich [facility] Medical 06/25/2020 12:00:00 AM EDT [facility]) Claudia Rich, [facility]: [address] [place] [address], Ph. Attender: Claudia Rich [facility] Medical 06/25/2020 12:00:00 AM EDT [facility]) [facility] [address] [place] [address], Ph. Attender: Claudia Rich [facility] Medical 06/25/2020 12:00:00 AM [facility] [address] [place] [address], Ph. Attender: Claudia Rich [facility] Medical 06/25/2020 12:00:00 AM EDT [place] ([facility]) Claudia Rich, [facility]: [address] [place] [address], Ph. Attender: Claudia Rich [facility] Medical 06/25/2020 12:00:00 AM EDT [facility] ([facility]) Outpatient Attender: Edison Pop/[place]/Anand/Reind l 05/29/2020 01:10:00 PM EDT [facility] ([facility] Outpatient Attender: Edison Pop/[place]/Anand/Reind l 05/22/2020 07:40:00 AM EST [facility] ([facility]) Pedro Cates MD: [address] [place] [address], Ph. Attender: Pedro Ctaes MD [facility] Medical 05/14/2020 12:00:00 AM EST [facility] ([facility]) Pedro Cates MD: [address] [place] [address], Ph. Attender: Pedro Cates MD [facility] Medical 05/14/2020 12:00:00 AM EST [facility] ([facility]) Pedro Cates MD: [address] [place] [address], Ph. Attender: Pedro Cates MD [facility] Medical 05/14/2020 12:00:00 AM EST [facility] ([facility]) Pedro Cates MD: [address] [place] [address], Ph. Attender: Pedro Cates MD [facility] Medical 05/14/2020 12:00:00 AM EST [facility] ([facility]) Pedro Cates MD: [address] [place] [address], Ph. Attender: Pedro Cates MD [facility] Medical 05/14/2020 12:00:00 AM EST [facility] ([facility]) Pedro Cates MD: [address] [place] [address], Ph. Attender: Pedro Cates MD [facility] Medical 05/14/2020 12:00:00 AM EST [facility] ([facility]) Pedro Cates MD: [address] [place] [address], Ph. Attender: Pedro Cates MD [facility] Medical 05/14/2020 12:00:00 AM EST [facility] ([facility]) Pedro Cates MD: [address] [place] [address], Ph. Attender: Pedro Cates MD [facility] Medical 05/14/2020 12:00:00 AM EST [facility] ([facility]) Pedro Cates MD: [address] [place] [address], Ph. Attender: Pedro Cates MD [facility] Medical 05/14/2020 12:00:00 AM EST [facility] ([facility]) Pedro Cates MD: [address] [place] [address], Ph. Attender: Pedro Cates MD [facility] Medical 05/14/2020 12:00:00 AM EST [facility] ([facility]) Pedro Cates MD: [address] [place] [address], Ph. Attender: Pedro Cates MD [facility] Medical 05/14/2020 12:00:00 AM EST [facility] ([facility]) Pedro Cates MD: [address] [place] [address], Ph. Attender: Pedro Cates MD [facility] Medical 05/14/2020 12:00:00 AM EST [facility] ([facility]) Pedro Cates MD: [address] [place] [address], Ph. Attender: Pedro Cates MD [facility] Medical 05/14/2020 12:00:00 AM EST [facility] ([facility]) Pedro Cates MD: [address] [place] [address], Ph. Attender: Pedro Cates MD [facility] Medical 05/14/2020 12:00:00 AM EST [facility] ([facility]) Pedro Cates MD: [address], [place] [address], Ph. Attender: Pedro Cates MD [facility] Medical 05/14/2020 12:00:00 AM EST [facility] ([facility]) Birgit Zhao [facility]: [address], [place] [address], Ph. Attender: Birgit Zhao [facility] Medical 05/05/2020 12:00:00 AM EST [facility] ([facility]) Birgit Zhao [facility]: [address], [place] [address], Ph. Attender: Birgit Zhao [facility] Medical 05/05/2020 12:00:00 AM EST [facility] ([facility]) [facility]: [address], [place] [address], Ph. Attender: Birgit Zhao [facility] Medical 05/05/2020 12:00:00 AM EST [facility] ([facility]) [facility] [address], [place] [address], Ph. Attender: Birgit Zhao [facility] Medical 05/05/2020 12:00:00 AM EST [facility] ([facility]) Birgit Zhao [facility]: [address], [place] [address], Ph. Attender: Birgit Zhao [facility] Medical 05/05/2020 12:00:00 AM EST [facility] ([facility]) Birgit Zhao [facility]: [address], [place] [address], Ph. Attender: Birgit Zhao [facility] Medical 05/05/2020 12:00:00 AM EST [facility] ([facility]) [facility] [address], [place] [address], Ph. Attender: Birgit Zhao [facility] Medical 05/05/2020 12:00:00 AM EST [facility] ([facility]) Birgit Zhao [facility]: [address], [place] [address], Ph. Attender: Birgit Zhao [facility] Medical 05/05/2020 12:00:00 AM EST [facility] ([facility]) [facility] [address], [place] [address], Ph. Attender: Birgit Zhao [facility] Medical 05/05/2020 12:00:00 AM EST [facility] ([facility]) Birgit Zhao [facility]: [address], [place] [address], Ph. Attender: Birgit Zhao [facility] Medical 05/05/2020 12:00:00 AM EST [facility] ([facility]) [facility] [address], [place] [address], Ph. Attender: Birgit Zhao [facility] Medical 05/05/2020 12:00:00 AM EST [facility] ([facility]) Birgit Zhao [facility]: [address], [place] [address], Ph. Attender: Birgit Zhao [facility] Medical 05/05/2020 12:00:00 AM EST [facility] ([facility]) [facility]: [address], [place] [address], Ph. Attender: Birgit Zhao [facility] Medical 05/05/2020 12:00:00 AM EST [facility] ([facility]) [facility] [address], [place] [address], Ph. Attender: Birgit Zhao [facility] Medical 05/05/2020 12:00:00 AM EST [facility] ([facility]) [facility]: [address], [place] [address], Ph. Attender: Birgit Zhao [facility] Medical 05/05/2020 12:00:00 AM EST [facility] ([facility]) Birgit Zhao [employer]-: [address], [place] [address], Ph. Attender: Birgit Zhao [facility] Medical 05/05/2020 12:00:00 AM EST [facility] ([facility]) Birgit Zhao [facility]: [address], [place] [address], Ph. Attender: Birgit Zhao [facility] Medical 04/30/2020 12:00:00 AM EST [facility] ([facility]) Birgit Zhao [facility]: [address], [place] [address], Ph. Attender: Birgit Zhao [facility] Medical 04/30/2020 12:00:00 AM EST [facility] ([facility]) Birgit Zhao [facility]: [address], [place] [address], Ph. Attender: Birgit Zhao [facility] Medical 04/30/2020 12:00:00 AM EST [facility] ([facility]) Birgit Zhao [facility]: [address], [place] [address], Ph. Attender: Birgit Zhao [facility] Medical 04/30/2020 12:00:00 AM EST [facility] ([facility]) Birgit Zhao [facility]: [address], [place] [address], Ph. Attender: Birgit Zhao [facility] Medical 04/30/2020 12:00:00 AM EST [facility] ([facility]) Birgit Zhao [facility]: [address], [place] [address], Ph. Attender: Birgit Zhao [facility] Medical 04/30/2020 12:00:00 AM EST [facility] ([facility]) Birgit Zhao [facility]: [address], [place] [address], Ph. Attender: Birgit Zhao [facility] Medical 04/30/2020 12:00:00 AM EST [facility] ([facility]) Birgit Zhao [facility]: [address], [place] [address], Ph. Attender: Birgit Zhao [facility] Medical 04/30/2020 12:00:00 AM EST [facility] ([facility]) Birgit Zhao [facility]: [address], [place] [address], Ph. Attender: Birgit Zhao [facility] Medical 04/30/2020 12:00:00 AM EST [facility] ([facility]) Birgit Zhao [facility]: [address], [place] [address], Ph. Attender: Birgit Zhao [facility] Medical 04/30/2020 12:00:00 AM EST [facility] ([facility]) [facility] [address], [place] [address], Ph. Attender: Birgit Zhao [facility] Medical 04/30/2020 12:00:00 AM EST [facility] ([facility]) [facility]: [address], [place] [address], Ph. Attender: Birgit Zhao [facility] Medical 04/30/2020 12:00:00 AM EST [facility] ([facility]) [facility]: [address], [place] [address], Ph. Attender: Birgit Zhao [facility] Medical 04/30/2020 12:00:00 AM EST [facility] ([facility]) Birgit Zhao [facility]: [address], [place] [address], Ph. Attender: Birgit Zhao [facility] Medical 04/30/2020 12:00:00 AM EST [facility] ([facility]) Birgit Zhao [facility]: [address], [place] [address], Ph. Attender: Birgit Zhao [facility] Medical 04/30/2020 12:00:00 AM EST [facility] ([facility]) Birgit Zhao [facility]: [address], [place] [address], Ph. Attender: Birgit Zhao [facility] Medical 04/30/2020 12:00:00 AM EST [facility] ([facility]) Birgit Zhao [facility]: [address], [place] [address], Ph. Attender: Birgit Zhao [facility] Medical 04/30/2020 12:00:00 AM EST [facility] ([facility]) Pedro Cates MD: [address], [place] [address], Ph. Attender: Pedro Cates MD [facility] Medical 04/10/2020 12:00:00 AM EST [facility] ([facility]) Pedro Cates MD: [address], [place] [address], Ph. Attender: Pedro Cates MD [facility] Medical 04/10/2020 12:00:00 AM EST [place] ([facility]) Pedro Cates MD: [address] [place] [address], Ph. Attender: Pedro Cates MD [facility] Medical 04/10/2020 12:00:00 AM EST [facility] ([facility]) Pedro Cates MD: [address] [place] [address], Ph. Attender: Pedro Cates MD [facility] Medical 04/10/2020 12:00:00 AM EST [facility] ([facility]) Pedro Cates MD: [address] [place] [address], Ph. Attender: Pedro Cates MD [facility] Medical 04/10/2020 12:00:00 AM EST [facility] ([facility]) Pedro Cates MD: [address] [place] [address], Ph. Attender: Pedro Cates MD [facility] Medical 04/10/2020 12:00:00 AM EST [facility] ([facility]) Pedro Cates MD: [address] [place] [address], Ph. Attender: Pedro Cates MD [facility] Medical 04/10/2020 12:00:00 AM EST [facility] ([facility]) Pedro Cates MD: [address] [place] [address], Ph. Attender: Pedro Cates MD [facility] Medical 04/10/2020 12:00:00 AM EST [facility] ([facility]) Pedro Cates MD: [address] [place] [address], Ph. Attender: Pedro Cates MD [facility] Medical 04/10/2020 12:00:00 AM EST [facility] ([facility]) Pedro Cates MD: [address] [place] [address], Ph. Attender: Pedro Cates MD [facility] 04/10/2020 12:00:00 AM EST [facility] ([facility]) Pedro Cates MD: [address] [place] [address], Ph. Attender: Pedro Cates MD [facility] 04/10/2020 12:00:00 AM EST [facility] ([facility]) Pedro Cates MD: [address] [place] [address], Ph. Attender: Pedro Cates MD [facility] 04/10/2020 12:00:00 AM EST [facility] ([facility]) Pedro Cates MD: [address] [place] [address], Ph. Attender: Pedro Cates MD [facility] 04/10/2020 12:00:00 AM EST [facility] ([facility]) Pedro Cates MD: [address] [place] [address], Ph. Attender: Pedro Cates MD [facility] 04/10/2020 12:00:00 AM EST [facility] ([facility]) Pedro Cates MD: [address] [place] [address], Ph. Attender: Pedro Cates MD [facility] 04/10/2020 12:00:00 AM EST [facility] ([facility]) Pedro Cates MD: [address] [place] [address], Ph. Attender: Pedro Cates MD [facility] 04/10/2020 12:00:00 AM EST [facility] ([facility]) Pedro Cates MD: [address] [place] [address], Ph. Attender: Pedro Cates MD [facility] 04/10/2020 12:00:00 AM EST [facility] ([facility]) Pedro Cates MD: [address] [place] [address], Ph. Attender: Pedro Cates MD [facility] 04/10/2020 12:00:00 AM EST [facility] ([facility]) Pedro Cates MD: [address] [place] [address], Ph. Attender: Pedro Cates MD [facility] 03/27/2020 12:00:00 AM EST [facility] ([facility]) Pedro Cates MD: [address] [place] [address], Ph. Attender: Pedro Cates MD [facility] 03/27/2020 12:00:00 AM EST [facility] ([facility]) Pedro Cates MD: [address] [place] [address], Ph. Attender: Pedro Cates MD [facility] 03/27/2020 12:00:00 AM EST [facility] ([facility]) Pedro Cates MD: [address] [place] [address], Ph. Attender: Pedro Cates MD [facility] 03/27/2020 12:00:00 AM EST [facility] ([facility]) Pedro Cates MD: [address] [place] [address], Ph. Attender: Pedro Cates MD [facility] 03/27/2020 12:00:00 AM EST [facility] ([facility]) Pedro Cates MD: [address] [place] [address], Ph. Attender: Pedro Cates MD [facility] 03/27/2020 12:00:00 AM EST [facility] ([facility]) Pedro Cates MD: [address] [place] [address], Ph. Attender: Pedro Cates MD [facility] 03/27/2020 12:00:00 AM EST [facility] ([facility]) Pedro Cates MD: [address] [place] [address], Ph. Attender: Pedro Cates MD [facility] 03/27/2020 12:00:00 AM EST [facility] ([facility]) Pedro Cates MD: [address] [place] [address], Ph. Attender: Pedro Cates MD [facility] 03/27/2020 12:00:00 AM EST [facility] ([facility]) Pedro Cates MD: [address] [place] [address], Ph. Attender: Pedro Cates MD [facility] 03/27/2020 12:00:00 AM EST [facility] ([facility]) Pedro Cates MD: [address] [place] [address], Ph. Attender: Pedro Cates MD [facility] 03/27/2020 12:00:00 AM EST [facility] ([facility]) Pedro Cates MD: [address] [place] [address], Ph. Attender: Pedro Cates MD [facility] 03/27/2020 12:00:00 AM EST [facility] ([facility]) Pedro Cates MD: [address] [place] [address], Ph. Attender: Pedro Cates MD [facility] 03/27/2020 12:00:00 AM EST [facility] ([facility]) Pedro Cates MD: [address] [place] [address], Ph. Attender: Pedro Cates MD [facility] 03/27/2020 12:00:00 AM EST [facility] ([facility]) Pedro Cates MD: [address] [place] [address], Ph. Attender: Pedro Cates MD [facility] 03/27/2020 12:00:00 AM EST [facility] ([facility]) Pedro Cates MD: [address] [place] [address], Ph. Attender: Pedro Cates MD [facility] 03/27/2020 12:00:00 AM EST [facility] ([facility]) Pedro Cates MD: [address] [place] [address], Ph. Attender: Pedro Cates MD [facility] 03/27/2020 12:00:00 AM EST [facility] ([facility]) Pedro Cates MD: [address] [place] [address], Ph. Attender: Pedro Cates MD [facility] 03/27/2020 12:00:00 AM EST [facility] ([facility]) Pedro Cates MD: [address] [place] [address], Ph. Attender: Pedro Cates MD [facility] 03/27/2020 12:00:00 AM EST [facility] ([facility]) Pedro Cates MD: [address] [place] [address], Ph. Attender: Pedro Cates MD [facility] 03/11/2020 12:00:00 AM EST [facility] ([facility]) Pedro Cates MD: [address] [place] [address], Ph. Attender: Pedro Cates MD [facility] 03/11/2020 12:00:00 AM EST [facility] ([facility]) Pedro Cates MD: [address] [place] [address], Ph. Attender: Pedro Cates MD [facility] 03/11/2020 12:00:00 AM EST [facility] ([facility]) Pedro Cates MD: [address] [place] [address], Ph. Attender: Pedro Cates MD [facility] 03/11/2020 12:00:00 AM EST [facility] ([facility]) Pedro Cates MD: [address] [place] [address], Ph. Attender: Pedro aCtes MD [facility] 03/11/2020 12:00:00 AM EST [facility] ([facility]) Pedro Cates MD: [address] [place] [address], Ph. Attender: Pedro Cates MD [facility] 03/11/2020 12:00:00 AM EST [facility] ([facility]) Pedro Cates MD: [address] [place] [address], Ph. Attender: Pedro Cates MD [facility] 03/11/2020 12:00:00 AM EST [facility] ([facility]) Pdero Cates MD: [address] [place] [address], Ph. Attender: Pedro Cates MD [facility] 03/11/2020 12:00:00 AM EST [facility] ([facility]) Pedro Cates MD: [address] [place] [address], Ph. Attender: Pedro Cates MD [facility] 03/11/2020 12:00:00 AM EST [facility] ([facility]) Pedro Cates MD: [address] [place] [address], Ph. Attender: Pedro Cates MD [facility] 03/11/2020 12:00:00 AM EST [facility] ([facility]) Pedro Cates MD: [address] [place] [address], Ph. Attender: Pedro Cates MD [facility] 03/11/2020 12:00:00 AM EST [facility] ([facility]) Pedro Cates MD: [address] [place] [address], Ph. Attender: Pedro Cates MD [facility] 03/11/2020 12:00:00 AM EST [facility] ([facility]) Pedro Cates MD: [address] [place] [address], Ph. Attender: Pedro Cates MD [facility] 03/11/2020 12:00:00 AM EST [facility] ([facility]) Pedro Cates MD: [address] [place] [address], Ph. Attender: Pedro Cates MD [facility] 03/11/2020 12:00:00 AM EST [facility] ([facility]) Pedro Cates MD: [address] [place] [address], Ph. Attender: Pedro Cates MD [facility] 03/11/2020 12:00:00 AM EST [facility] ([facility]) Pedro Cates MD: [address] [place] [address], Ph. Attender: Pedro Cates MD [facility] 03/11/2020 12:00:00 AM EST [facility] ([facility]) Pedro Cates MD: [address] [place] [address], Ph. Attender: Pedro Cates MD [facility] 03/11/2020 12:00:00 AM EST [facility] ([facility]) Pedro Cates MD: [address] [place] [address], Ph. Attender: Pedro Cates MD [facility] 03/11/2020 12:00:00 AM EST [facility] ([facility]) Pedro Cates MD: [address] [place] [address], Ph. Attender: Pedro Cates MD [facility] 03/11/2020 12:00:00 AM EST [facility] ([facility]) Pedro Cates MD: [address] [place] [address], Ph. Attender: Pedro Cates MD [facility] 03/11/2020 12:00:00 AM EST [facility] ([facility]) Pedro Cates MD: [address] [place] [address], Ph. Attender: Pedro Cates MD [facility] 03/11/2020 12:00:00 AM EST [facility] ([facility]) Psychiatric Diagnostic Evaluation (Non-Medical) Attender: Jac Bello [facility] 02/03/2020 11:00:00 AM EST - 02/03/2020 11:00:00 AM EST [facility] ([facility]) Attender: Frantz Bello 02/03/2020 12:00:00 AM EST [facility] ([facility]) Psychiatric Diagnostic Evaluation (Non-Medical) Attender: Jac thackero Ace [facility] 01/15/2020 02:00:00 AM EST - 01/15/2020 02:00:00 AM EST [facility] ([facility]) Attender: Frantz Bello 01/15/2020 12:00:00 AM EST [facility] ([facility]) Psychiatric Diagnostic Evaluation (Non-Medical) Attender: Jac thackero Ace [facility] 01/14/2020 02:00:00 AM EST - 01/14/2020 02:00:00 AM EST [facility] ([facility]) Attender: Frantz Bello 01/14/2020 12:00:00 AM EST [facility] ([facility]) Attender: ALYX ORDAZ DO 0 12/08/2019 11:12:12 AM EDT - 12/08/2019 01:16:00 PM EDT [facility] Attender: ALYX DONG [facility] ED 11/12 11:05:00 AM EDT - 12/08/2019 01:16:00 PM EDT [facility] Patient discharged. Emergency 12/06/2019 04:36:00 PM EDT - 12/06/2019 08:08:00 PM EDT Kidney; hip [facility] Kidney; hip Patient discharged. Immunizations Vaccine Date Status Description Data Source(s) COVID-19, mRNA, LNP-S, PF, 30 mcg/0.3 mL dose 10/15/2020 02: 00:42 PM EDT completed .3 mL [facility] ([facility]) COVID-19, mRNA, LNP-S, PF, 30 mcg/0.3 mL dose 10/15/2020 02: 00:42 PM EDT completed .3 mL [facility] ([facility]) COVID-19, mRNA, LNP-S, PF, 30 mcg/0.3 mL dose 10/15/2020 02: 00:42 PM EDT completed .3 mL [facility] ([facility]) COVID-19, mRNA, LNP-S, PF, 30 mcg/0.3 mL dose 10/15/2020 02: 00:42 PM EDT completed .3 mL [facility] ([facility]) COVID-19, mRNA, LNP-S, PF, 30 mcg/0.3 mL dose 10/15/2020 02: 00:42 PM EDT completed .3 mL [facility] ([facility]) COVID-19 VACCINE Pfizer 10/15/2020 12:00:00 AM EDT completed [facility] I[facility] Vaccine Series Complete: NOThis [facility]. Medications Medication Brand Name Start Date Product Form Dose Route Admi nistrative Instructions Pharmacy Instructions Status Indications Reaction Description Data Source(s) 20 mg 11/14/2020 12:00:00 AM EDT tablet 90 TAKE 1 TABLET BY MOUTH 2-3 TIMES DAILY AT LEAST 15 MINUTES BEFORE MEALS (FOR DIARRHEA AND ABDOMINAL CRAMPS) TAKE 1 TABLET BY MOUTH 2-3 TIMES DAILY AT LEAST 15 MINUTES BEFORE MEALS (FOR DIARRHEA AND ABDOMINAL CRAMPS) SOLD: 11/18/2020 [facility] 40 mg 11/11/2020 12:00:00 AM EDT capsule,delayed release (DR/EC) 30 TAKE ONE CAPSULE BY MOUTH EVERY MORNING ON EMPTY STOMACH 1/2 HOUR BEFORE BREAKFAST (TAPER OFF AFTER 6 WEEKS ) TAKE ONE CAPSULE BY MOUTH EVERY MORNING ON EMPTY STOMACH 1/2 HOUR BEFORE BREAKFAST (TAPER OFF AFTER 6 WEEKS ) SOLD: 11/18/2020 [facility] Dicyclomine Hydrochloride 20 MG Oral Tablet Dicyclomine HCL 11/11/2020 12:00:00 AM EDT ORAL active [facility] ([facility], ) 12 HR Hyoscyamine Sulfate 0.375 MG Extended Release Or al Tablet [Oscimin] Oscimin SR 11/10/2020 12:00:00 AM EDT completed [facility] ([facility], ) POLYETHYLENE GLYCOL 3350 142 MG/ML Oral Solution [Miralax] M iralax 11/10/2020 12:00:00 AM EDT active M EDENT ([facility], ) 42 mcg (0.06 %) 09/25/2020 12:00:00 AM EDT spray,non-aerosol 15 SPRAY TWO SPRAYS IN EACH NOSTRIL TWO TIMES A DAY SPRAY TWO SPRAYS IN EACH NOSTRIL TWO TIMES A DAY SOLD: 09/28/2020 [facility] Ipratropium [place] Ipratropium [place] 09/24/2020 12:00:00 AM EDT active [facility] ([facility], ) 100 mg 07/30/2020 12:00:00 AM EDT capsule 30 TAKE ONE CAPSULE BY MOUTH EVERY DAY TAKE ONE CAPSULE BY MOUTH EVERY DAY SOLD: 07/31/2020 [facility] 90 mcg/actuation 07/30/2020 12:00:00 AM EDT HFA aerosol inha ler 8 INHALE TWO PUFFS BY MOUTH EVERY 4 HOURS NEEDED FOR SHORTNESS OF BREATH AND WHEEZING INHALE TWO PUFFS BY MOUTH EVERY 4 HOURS NEEDED FOR SHORTNESS OF BREATH AND WHEEZING SOLD: 07/31/2020 [facility] Paroxetine Hydrochloride 10 MG Oral Tablet PAROXETINE HCL 07/29/2020 12:00:00 AM EDT tablet 30 TAKE ONE TABLET BY MOUTH [place]AGO TAKE ONE TABLET BY MOUTH EVERY DAY SOLD: 07/29/2020 [facility] meloxicam 7.5 MG Oral Tablet MELOXICAM 07/16/2020 12:00:00 AM EDT tabl et 30 TAKE ONE TABLET BY MOUTH EVERY DAY TAKE ONE TABLET BY MOUTH EVERY DAY SOLD: 07/19/2020 [facility] 50 mcg/actuation 07/07/2020 12:00:00 AM EDT spray,suspension 16 SPRAY TWO SPRAYS IN EACH NOSTRIL EVERY DAY SPRAY TWO SPRAYS IN EACH NOSTRIL EVERY DAY SOLD: 07/08/2020 [facility] 40 mg 07/07/2020 12:00:00 AM EDT capsule,delayed release (DR/EC) 60 TAKE ONE CAPSULE BY MOUTH EVERY DAY TAKE ONE CAPSULE BY MOUTH EVERY DAY SOLD: 07/08/2020 [facility] 600 mg 07/06/2020 12:00:00 AM EDT tablet extended release 12hr 60 TAKE ONE TABLET BY MOUTH TWICE A DAY TAKE ONE TABLET BY MOUTH TWICE A DAY SOLD: 07/08/2020 [facility] Omeprazole 40 MG Delayed Release Oral Capsule Omeprazole 07/06/2020 12:00:00 AM EDT active [facility] ([facility], ) Fluticasone Propionate Fluticasone Propionate 07/06/2020 12:00:00 AM E DT active [facility] ([facility]) 20 mEq 06/01/2020 12:00:00 AM EDT tablet extended release 30 TAKE ONE TABLET BY MOUTH EVERY DAY TAKE ONE TABLET BY MOUTH EVERY DAY SOLD: 06/02/2020 [facility] 12 HR Guaifenesin 600 MG Extended Release Oral Tablet [Mucin ex] Mucinex 05/29/2020 12:00:00 AM EDT ORAL active [facility] ([facility]) Sinus Rinse Bottle Kit 05/22/2020 12:00:00 AM EST active [facility] ([facility], ) Bacitracin 0.5 UNT/MG / Polymyxin B 10 UNT/MG Topical Ointment [Polysporin] Polysporin 05/22/2020 12:00:00 AM EST completed [facility] ([facility]) 20 mg 05/06/2020 12:00:00 AM EST capsule,delayed release (DR/EC) 30 TAKE ONE CAPSULE BY MOUTH EVERY DAY TAKE ONE CAPSULE BY MOUTH EVERY DAY SOLD: 05/08/2020 [facility] 20 mg 05/06/2020 12:00:00 AM EST capsule,delayed release (DR/EC) 30 TAKE ONE CAPSULE BY MOUTH EVERY DAY TAKE ONE CAPSULE BY MOUTH EVERY DAY SOLD: 06/11/2020 [facility] 20 mg 04/30/2020 12:00:00 AM EST tablet 10 TAKE ONE TABLET BY MOUTH TWICE A DAY TAKE ONE TABLET BY MOUTH TWICE A DAY SOLD: 04/30/2020 [facility] 2.5 mg /3 mL (0.083 %) 04/30/2020 12:00:00 AM EST solu tion for nebulization 300 INHALE ONE VIAL VIA NEBULIZER FOUR TIMES A DAY NEEDED INHALE ONE VIAL VIA NEBULIZER FOUR TIMES A DAY NEEDED SOLD: 04/30/2020 [facility] doxycycline hyclate 100 MG Oral Capsule DOXYCYCLINE HYCLATE 04/30/2020 12:00:00 AM EST capsule 14 TAKE ONE CAPSULE BY MOUTH TWO TIMES A DAY DIRECTED FOR 7 DAYS TAKE ONE CAPSULE BY MOUTH TWO TIMES A DAY DIRECTED FOR 7 DAYS SOLD: 04/30/2020 [facility] 50 mcg/actuation 04/30/2020 12:00:00 AM EST spray,suspension 16 SPRAY ONE SPRAY IN EACH NOSTRIL ONCE DAILY - SHOULD LAST 60 DAYS SPRAY ONE SPRAY IN EACH NOSTRIL ONCE DAILY - SHOULD LAST 60 DAYS SOLD: 04/30/2020 [facility] 20 mg 03/28/2020 12:00:00 AM EST capsule,delayed release (DR/EC) 30 TAKE ONE CAPSULE BY MOUTH EVERY DAY TAKE ONE CAPSULE BY MOUTH EVERY DAY SOLD: 04/08/2020 [facility] 100 mcg/actuation 03/11/2020 12:00:00 AM EST blister with de vice 30 INHALE 1 PUFF BY MOUTH ONCE DAILY INHALE 1 PUFF BY MOUTH ONCE DAILY SOLD: 06/04/2020 [facility] 100 mcg/actuation 03/11/2020 12:00:00 AM EST blister with de vice 30 INHALE 1 PUFF BY MOUTH ONCE DAILY INHALE 1 PUFF BY MOUTH ONCE DAILY SOLD: 04/24/2020 [facility] 100 mcg/actuation 03/11/2020 12:00:00 AM EST blister with de vice 30 INHALE 1 PUFF BY MOUTH ONCE DAILY INHALE 1 PUFF BY MOUTH ONCE DAILY SOLD: 03/11/2020 [facility] 2.5 mg /3 mL (0.083 %) 03/11/2020 12:00:00 AM EST solu tion for nebulization 150 USE 1 VIAL IN NEBULIZER FOUR TIMES A DAY NEEDED USE 1 VIAL IN NEBULIZER FOUR TIMES A DAY NEEDED SOLD: 03/11/2020 [facility] 20 mg 03/07/2020 12:00:00 AM EST tablet 8 TAKE 2 TABLETS BY MOUTH EVERY DAY TAKE 2 TABLETS BY MOUTH EVERY DAY SOLD: 03/07/2020 [facility] benzonatate 100 MG Oral Capsule BENZONATATE 03/07/2020 12:00:00 AM EST capsule 21 TAKE ONE CAPSULE BY MOUTH THREE TIMES A DAY FOR COUGH TAKE ONE CAPSULE BY MOUTH THREE TIMES A DAY FOR COUGH SOLD: 03/07/2020 [facility] quetiapine 50 MG Oral Tablet QUETIAPINE FUMARATE 01/13/2020 12:0 0:00 AM EST tablet 7 TAKE ONE TABLET BY MOUTH AT BEDT PACO FOR AGITATION TAKE ONE TABLET BY MOUTH AT BEDTIME FOR AGITATION SOLD: 01/13/2020 [facility] quetiapine 50 MG Oral Tablet QUETIAPINE FUMARATE 01/13/2020 12:0 0:00 AM EST tablet 7 TAKE ONE TABLET BY MOUTH AT BEDT PACO FOR AGITATION TAKE ONE TABLET BY MOUTH AT BEDTIME FOR AGITATION SOLD: 01/31/2020 [facility] quetiapine 50 MG Oral [...] FOR AGITATION S OLD: 01/13/2020 [facility] 25 mg 01/13/2020 12:00:00 AM EST tablet 7 TAKE ONE TABLET BY MOUTH EVERY MORNING FOR AGITATION TAKE ONE TABLET BY MOUTH EVERY MORNING FOR AGITATION S OLD: 01/31/2020 [facility] 25 mg 01/13/2020 12:00:00 AM EST tablet 7 TAKE ONE TABLET BY MOUTH EVERY MORNING FOR AGITATION TAKE ONE TABLET BY MOUTH EVERY MORNING FOR AGITATION S OLD: 02/07/2020 [facility] 50 mg 01/01/2020 12:00:00 AM [...] 2400mg from all sources in 24 hours.
[facility] Medication administered onsite Acetaminophen 325 MG [...] mg from all sources in 24 hours.
[facility] Medication administered onsite 90 mcg/actuation 08/30/2019 12:00:00 AM EDT HFA aerosol inha ler 8 INHALE 2 PUFFS BY MOUTH EVERY 4 HOURS NEEDED WHEEZING FOR SHORTNESS OF BREATH INHALE 2 PUFFS BY MOUTH EVERY 4 HOURS NEEDED WHEEZING FOR SHORTNESS OF BREATH SOLD: 03/04/2020 [facility] 90 mcg/actuation 08/30/2019 12:00:00 AM EDT HFA aerosol inha ler 8 INHALE 2 PUFFS BY MOUTH EVERY 4 HOURS NEEDED WHEEZING FOR SHORTNESS OF BREATH INHALE 2 PUFFS BY MOUTH EVERY 4 HOURS NEEDED WHEEZING FOR SHORTNESS OF BREATH SOLD: 04/30/2020 [facility] Doxycycline Monohydrate 100 MG Oral Caps ule doxycycline monohydrate 100 mg capsule doxycycline monohydrate 100 mg capsule completed doxycycline monohydrate 100 MG Oral Capsule [facility] ([facility]) fluticasone furoate 0.1 MG/ACTUAT Dry Po wder Inhaler Arnuity Ellipta 100 mcg/actuation powder for inhalation INHALE 1 PUFF BY MOUTH ONCE DAILY Arnuity Ellipta 100 mcg/actuation powder for inhalation INHALE 1 PUFF BY MOUTH ONCE DAILY completed flutica sone furoate 0.1 MG/ACTUAT Dry Powder Inhaler [facility] ([facility]) Sulfamethoxazole 800 MG / Trimethoprim 1 60 MG Oral Tablet sulfamethoxazole 800 mg-trimethoprim 160 mg tablet sulfamethoxazole 800 mg-trimethoprim 160 mg tablet completed sulfame thoxazole 800 MG / trimethoprim 160 MG Oral Tablet [facility] ([facility]) meloxicam 7.5 MG Oral Tablet meloxicam 7 .5 mg tablet TAKE ONE TABLET BY MOUTH EVERY DAY meloxicam 7.5 mg tablet TAKE ONE TABLET BY MOUTH EVERY DAY completed meloxicam 7.5 MG Oral Tablet [facility] ([facility]) quetiapine 50 MG Oral Tablet quetiapine 50 mg tablet quetiapine 50 mg tablet completed quetiapine 50 MG Oral Tablet [place] ([facility]) Clindamycin 10 MG/ML Topical Solution cl indamycin phosphate 1 % topical solution clindamycin phosphate 1 % topical solution completed clindamycin 10 MG/ML Topical Solution [place] ([facility]) doxycycline hyclate 100 MG Oral Capsule doxycycline hyclate 100 mg capsule TAKE ONE CAPSULE BY MOUTH TWO TIMES A DAY DIRECTED FOR 7 DAYS doxycycline hyclate 100 mg capsule TAKE ONE CAPSULE BY MOUTH TWO TIMES A DAY DIRECTED FOR 7 DAYS completed doxycycline hyclate 100 MG Oral Capsule [place] ([facility]) imiquimod 50 MG/ML Topical Cream imiquim od 5 % topical cream packet APPLY TO AFFECTED AREA S ONCE DAILY NEEDED imiquimod 5 % topical cream packet APPLY TO AFFECTED AREA S ONCE DAILY NEEDED completed imiquimod 50 MG/ML Topical Cream [place] ([facility]) valacyclovir 1000 MG Oral Tablet valacyc lovir 1 gram tablet TAKE ONE TABLET BY MOUTH TWICE A DAY FOR 3 DAYS valacyclovir 1 gram tablet TAKE ONE TABL ET BY MOUTH TWICE A DAY FOR 3 DAYS completed valacyclovir 1000 MG Oral Tablet [facility] ([facility]) Fluorouracil 50 MG/ML Topical Cream fluo rouracil 5 % topical cream APPLY TO WARTS AT NIGHT COVER WITH BANDAID fluorouracil 5 % topical cream APPLY TO WARTS AT NIGHT COVER WITH BANDAID complete d fluorouracil 50 MG/ML Topical Cream [facility] ([facility]) cetirizine hydrochloride 10 MG Oral Tabl et cetirizine 10 mg tablet TAKE ONE TABLET BY MOUTH EVERY DAY cetirizine 10 mg tablet TAKE ONE TABLET BY MOUTH EVERY DAY completed cetirizine hydro chloride 10 MG Oral Tablet [facility] ([facility]) Hydroxyzine Hydrochloride 50 MG Oral Tablet hydroxyzin e HCl 50 mg tablet hydroxyzine HCl 50 mg tablet completed hydroxyzine hydrochloride 50 MG Oral Tablet [facility] ([facility]) imiquimod 50 MG/ML Topical Cream imiquim od 5 % topical cream packet APPLY TO AFFECTED AREA S ONCE DAILY NEEDED imiquimod 5 % topical cream packet APPLY TO AFFECTED AREA S ONCE DAILY NEEDED completed imiquimod 50 MG/ML Topical Cream [facility] ([facility]) Azithromycin 250 MG Oral Tablet azithromycin 250 mg ta blet azithromycin 250 mg tablet completed azithromycin 25 0 MG Oral Tablet [facility] ([facility]) Sulfamethoxazole 800 MG / Trimethoprim 1 60 MG Oral Tablet sulfamethoxazole 800 mg-trimethoprim 160 mg tablet sulfamethoxazole 800 mg-trimethoprim 160 mg tablet completed sulfame thoxazole 800 MG / trimethoprim 160 MG Oral Tablet [facility] ([facility]) Prednisone 20 MG Oral Tablet prednisone 20 mg tablet TAKE ONE TABLET BY MOUTH TWICE A DAY prednisone 20 mg tablet TAKE ONE TABLET BY MOUTH TWICE A DAY completed prednisone 20 MG Ora l Tablet [facility] ([facility]) Prednisone 20 MG Oral Tablet prednisone 20 mg tablet TAKE ONE TABLET BY MOUTH TWICE A DAY prednisone 20 mg tablet TAKE ONE TABLET BY MOUTH TWICE A DAY completed prednisone 20 MG Ora l Tablet [place] ([facility]) benzonatate 100 MG Oral Capsule benzonat ate 100 mg capsule TAKE ONE CAPSULE BY MOUTH THREE TIMES A DAY FOR COUGH benzonatate 100 mg capsule TAKE ONE CAPS ULE BY MOUTH THREE TIMES A DAY FOR COUGH com pleted benzonatate 100 MG Oral Capsule [facility] ([facility]) benzonatate 100 MG Oral Capsule benzonat ate 100 mg capsule TAKE ONE CAPSULE BY MOUTH THREE TIMES A DAY FOR COUGH benzonatate 100 mg capsule TAKE ONE CAPS ULE BY MOUTH THREE TIMES A DAY FOR COUGH com pleted benzonatate 100 MG Oral Capsule [facility] ([facility]) Tab-A-Carlo 400 mcg tablet [id number] compl eted Tab-A-Carlo 400 mcg tablet [facility] ([facility]) quetiapine 50 MG Oral Tablet quetiapine 50 mg tablet quetiapine 50 mg tablet completed quetiapine 50 MG Oral Tablet [place] ([facility]) Hydroxyzine Hydrochloride 50 MG Oral Tablet hydroxyzin e HCl 50 mg tablet hydroxyzine HCl 50 mg tablet completed hydroxyzine hydrochloride 50 MG Oral Tablet [facility] ([facility]) fluticasone furoate 0.1 MG/ACTUAT Dry Po wder Inhaler Arnuity Ellipta 100 mcg/actuation powder for inhalation INHALE 1 PUFF BY MOUTH ONCE DAILY Arnuity Ellipta 100 mcg/actuation powder for inhalation INHALE 1 PUFF BY MOUTH ONCE DAILY completed flutica sone furoate 0.1 MG/ACTUAT Dry Powder Inhaler [facility] ([facility]) Potassium Chloride 20 MEQ Extended Relea se Oral Tablet potassium chloride ER 20 mEq tablet,extended release TAKE ONE TABLET BY MOUTH EVERY DAY potassium chloride ER 20 mEq tablet,extended release TAKE ONE TABLET BY MOUTH EVERY DAY completed potassium chlo ride 20 MEQ Extended Release Oral Tablet [place] ([facility]) doxycycline hyclate 100 MG Oral Capsule doxycycline hyclate 100 mg capsule TAKE ONE CAPSULE BY MOUTH TWO TIMES A DAY DIRECTED FOR 7 DAYS doxycycline hyclate 100 mg capsule TAKE ONE CAPSULE BY MOUTH TWO TIMES A DAY DIRECTED FOR 7 DAYS completed doxycycline hyclate 100 MG Oral Capsule [place] ([facility]) valacyclovir 1000 MG Oral Tablet valacyc lovir 1 gram tablet TAKE ONE TABLET BY MOUTH TWICE A DAY FOR 3 DAYS valacyclovir 1 gram tablet TAKE ONE TABL ET BY MOUTH TWICE A DAY FOR 3 DAYS completed valacyclovir 1000 MG Oral Tablet [place] ([facility]) quetiapine 50 MG Oral Tablet quetiapine 50 mg tablet quetiapine 50 mg tablet completed quetiapine 50 MG Oral Tablet [place] ([facility]) chlorhexidine gluconate 1.2 MG/ML Mouthw tabitha chlorhexidine gluconate 0.12 % mouthwash chlorhexidine gluconate 0.12 % mouthwash completed chlorhexidine gluconate 1.2 MG/ML Mouthwash [place] ([facility]) Omeprazole 20 MG Delayed Release Oral Ca psule omeprazole 20 mg capsule,delayed release omeprazole 20 mg capsule,delayed release completed omeprazole 20 MG Delayed Release Oral Capsule [place] ([facility]) meloxicam 7.5 MG Oral Tablet meloxicam 7 .5 mg tablet TAKE ONE TABLET BY MOUTH EVERY DAY meloxicam 7.5 mg tablet TAKE ONE TABLET BY MOUTH EVERY DAY completed meloxicam 7.5 MG Oral Tablet [place] ([facility]) Prednisone 20 MG Oral Tablet prednisone 20 mg tablet TAKE ONE TABLET BY MOUTH TWICE A DAY prednisone 20 mg tablet TAKE ONE TABLET BY MOUTH TWICE A DAY completed prednisone 20 MG Ora l Tablet [place] ([facility]) benzonatate 100 MG Oral Capsule benzonat ate 100 mg capsule TAKE ONE CAPSULE BY MOUTH THREE TIMES A DAY FOR COUGH benzonatate 100 mg capsule TAKE ONE CAPS ULE BY MOUTH THREE TIMES A DAY FOR COUGH com pleted benzonatate 100 MG Oral Capsule [place] ([facility]) Polyethylene Glycol 400 4 MG/ML / Propyl [...] propylene glycol 3 MG/ML Ophthalmic Solution [Systane] [place] ([facility]) chlorhexidine gluconate 1.2 MG/ML Mouthw tabitha chlorhexidine gluconate 0.12 % mouthwash chlorhexidine gluconate 0.12 % mouthwash completed chlorhexidine gluconate 1.2 MG/ML Mouthwash [place] ([facility]) benzonatate 100 MG Oral Capsule benzonat ate 100 mg capsule TAKE ONE CAPSULE BY MOUTH THREE TIMES A DAY FOR COUGH benzonatate 100 mg capsule TAKE ONE CAPS ULE BY MOUTH THREE TIMES A DAY FOR COUGH com pleted benzonatate 100 MG Oral Capsule [place] ([facility]) Docusate Sodium 100 MG Oral Capsule docu sate sodium 100 mg capsule TAKE ONE CAPSULE BY MOUTH EVERY DAY docusate sodium 100 mg capsule TAKE ONE CAPSULE BY MOUTH EVERY DAY completed docusa te sodium 100 MG Oral Capsule [place] ([facility]) quetiapine 50 MG Oral Tablet quetiapine 50 mg tablet quetiapine 50 mg tablet completed quetiapine 50 MG Oral Tablet [place] ([facility]) Metoclopramide 5 MG Oral Tablet metoclopramide 5 mg ta blet metoclopramide 5 mg tablet completed metoclopramide 5 MG Oral Tablet [facility]) Sulfamethoxazole 800 MG / Trimethoprim 1 60 MG Oral Tablet sulfamethoxazole 800 mg-trimethoprim 160 mg tablet sulfamethoxazole 800 mg-trimethoprim 160 mg tablet completed sulfame thoxazole 800 MG / trimethoprim 160 MG Oral Tablet [place] ([facility]) 12 HR Guaifenesin 600 MG Extended Releas e Oral Tablet [Mucinex] Mucinex 600 mg tablet, extended release Mucinex 600 mg tablet, extended release completed 12 HR guaifenesin 600 MG Extende d Release Oral Tablet [Mucinex] [place] ([facility]) Cimetidine 300 MG Oral Tablet cimetidine 300 mg tablet TAKE TWO TABLETS BY MOUTH TWICE A DAY cimetidine 300 mg tablet TAKE TWO TABLETS BY MOUTH TWICE A DAY completed cimetidine 300 MG Oral Tablet [place] ([facility]) Omeprazole 40 MG Delayed Release Oral Ca psule omeprazole 40 mg capsule,delayed release TAKE ONE CAPSULE BY MOUTH EVERY DAY omeprazole 40 mg capsule,delayed release TAKE ONE CAPSULE BY MOUTH EVERY DAY completed omeprazole 40 MG Delayed Release Oral Capsule [place] ([facility]) quetiapine 50 MG Oral Tablet quetiapine 50 mg tablet quetiapine 50 mg tablet completed quetiapine 50 MG Oral Tablet [facility]) 12 HR Guaifenesin 600 MG Extended Releas e Oral Tablet [Mucinex] Mucinex 600 mg tablet, extended release Mucinex 600 mg tablet, extended release completed 12 HR guaifenesin 600 MG Extende d Release Oral Tablet [Mucinex] [place] ([facility]) Omeprazole 20 MG Delayed Release Oral Ca psule omeprazole 20 mg capsule,delayed release omeprazole 20 mg capsule,delayed release completed omeprazole 20 MG Delayed Release Oral Capsule [place] ([facility]) Metoclopramide 5 MG Oral Tablet metoclopramide 5 mg ta blet metoclopramide 5 mg tablet completed metoclopramide 5 MG Oral Tablet [place] ([facility]) Polyethylene Glycol 400 4 MG/ML / [...] propylene glycol 3 MG/ML Ophthalmic Solution [Systane] [place] ([facility]) Azithromycin 250 MG Oral Tablet azithromycin 250 mg ta blet azithromycin 250 mg tablet completed azithromycin 25 0 MG Oral Tablet [place] ([facility]) Sulfamethoxazole 800 MG / Trimethoprim 1 60 MG Oral Tablet sulfamethoxazole 800 mg-trimethoprim 160 mg tablet sulfamethoxazole 800 mg-trimethoprim 160 mg tablet completed sulfame thoxazole 800 MG / trimethoprim 160 MG Oral Tablet [facility]) quetiapine 25 MG Oral Tablet quetiapine 25 mg tablet quetiapine 25 mg tablet completed quetiapine 25 MG Oral Tablet [facility]) 12 HR Guaifenesin 600 MG Extended Releas e Oral Tablet [Mucinex] Mucinex 600 mg tablet, extended release Mucinex 600 mg tablet, extended release completed 12 HR guaifenesin 600 MG Extende d Release Oral Tablet [Mucinex] [facility]) Doxycycline Monohydrate 100 MG Oral Caps ule doxycycline monohydrate 100 mg capsule doxycycline monohydrate 100 mg capsule completed doxycycline monohydrate 100 MG Oral Capsule [facility]) Docusate Sodium 100 MG Oral Capsule docu sate sodium 100 mg capsule TAKE ONE CAPSULE BY MOUTH EVERY DAY docusate sodium 100 mg capsule TAKE ONE CAPSULE BY MOUTH EVERY DAY completed docusa te sodium 100 MG Oral Capsule [facility]) Polyethylene Glycol 400 4 MG/ML / Propyl [...] propylene glycol 3 MG/ML Ophthalmic Solution [Systane] [facility]) doxycycline hyclate 100 MG Oral Capsule doxycycline hyclate 100 mg capsule TAKE ONE CAPSULE BY MOUTH TWO TIMES A DAY DIRECTED FOR 7 DAYS doxycycline hyclate 100 mg capsule TAKE ONE CAPSULE BY MOUTH TWO TIMES A DAY DIRECTED FOR 7 DAYS completed doxycycline hyclate 100 MG Oral Capsule [facility]) benzonatate 100 MG Oral Capsule benzonat ate 100 mg capsule TAKE ONE CAPSULE BY MOUTH THREE TIMES A DAY FOR COUGH benzonatate 100 mg capsule TAKE ONE CAPS ULE BY MOUTH THREE TIMES A DAY FOR COUGH com pleted benzonatate 100 MG Oral Capsule [place] ([facility]) Tab-A-Carlo 400 mcg tablet [id number] compl eted Tab-A-Carlo 400 mcg tablet [place] ([facility]) Docusate Sodium 100 MG Oral Capsule docu sate sodium 100 mg capsule TAKE ONE CAPSULE BY MOUTH EVERY DAY docusate sodium 100 mg capsule TAKE ONE CAPSULE BY MOUTH EVERY DAY completed docusa te sodium 100 MG Oral Capsule [place] ([facility]) Ondansetron 4 MG Disintegrating Oral Tab let ondansetron 4 mg disintegrating tablet ondansetron 4 mg disintegrating tablet completed ondansetron 4 MG Disintegrating Oral Tablet [place] ([facility]) Doxycycline Monohydrate 100 MG Oral Caps ule doxycycline monohydrate 100 mg capsule doxycycline monohydrate 100 mg capsule completed doxycycline monohydrate 100 MG Oral Capsule [place] ([facility]) Clindamycin 10 MG/ML Topical Solution cl indamycin phosphate 1 % topical solution clindamycin phosphate 1 % topical solution completed clindamycin 10 MG/ML Topical Solution [place] ([facility]) fluticasone furoate 0.1 MG/ACTUAT Dry Po wder Inhaler Arnuity Ellipta 100 mcg/actuation powder for inhalation INHALE 1 PUFF BY MOUTH ONCE DAILY Arnuity Ellipta 100 mcg/actuation powder for inhalation INHALE 1 PUFF BY MOUTH ONCE DAILY completed flutica sone furoate 0.1 MG/ACTUAT Dry Powder Inhaler [place] ([facility]) cetirizine hydrochloride 10 MG Oral Tabl et cetirizine 10 mg tablet TAKE ONE TABLET BY MOUTH EVERY DAY cetirizine 10 mg tablet TAKE ONE TABLET BY MOUTH EVERY DAY completed cetirizine hydro chloride 10 MG Oral Tablet [place] ([facility]) Prednisone 20 MG Oral Tablet prednisone 20 mg tablet TAKE ONE TABLET BY MOUTH TWICE A DAY prednisone 20 mg tablet TAKE ONE TABLET BY MOUTH TWICE A DAY completed prednisone 20 MG Ora l Tablet [place] ([facility]) Doxycycline Monohydrate 100 MG Oral Caps ule doxycycline monohydrate 100 mg capsule doxycycline monohydrate 100 mg capsule completed doxycycline monohydrate 100 MG Oral Capsule [place] ([facility]) chlorhexidine gluconate 1.2 MG/ML Mouthw tabitha chlorhexidine gluconate 0.12 % mouthwash chlorhexidine gluconate 0.12 % mouthwash completed chlorhexidine gluconate 1.2 MG/ML Mouthwash [place] ([facility]) Hydroxyzine Hydrochloride 50 MG Oral Tablet hydroxyzin e HCl 50 mg tablet hydroxyzine HCl 50 mg tablet completed hydroxyzine hydrochloride 50 MG Oral Tablet [place] ([facility]) Prednisone 20 MG Oral Tablet prednisone 20 mg tablet TAKE ONE TABLET BY MOUTH TWICE A DAY prednisone 20 mg tablet TAKE ONE TABLET BY MOUTH TWICE A DAY completed prednisone 20 MG Ora l Tablet [place] ([facility]) Omeprazole 20 MG Delayed Release Oral Ca psule omeprazole 20 mg capsule,delayed release omeprazole 20 mg capsule,delayed release completed omeprazole 20 MG Delayed Release Oral Capsule [place] ([facility]) meloxicam 7.5 MG Oral Tablet meloxicam 7 .5 mg tablet TAKE ONE TABLET BY MOUTH EVERY DAY meloxicam 7.5 mg tablet TAKE ONE TABLET BY MOUTH EVERY DAY completed meloxicam 7.5 MG Oral Tablet [place] ([facility]) doxycycline hyclate 100 MG Oral Capsule doxycycline hyclate 100 mg capsule TAKE ONE CAPSULE BY MOUTH TWO TIMES A DAY DIRECTED FOR 7 DAYS doxycycline hyclate 100 mg capsule TAKE ONE CAPSULE BY MOUTH TWO TIMES A DAY DIRECTED FOR 7 DAYS completed doxycycline hyclate 100 MG Oral Capsule [place] ([facility]) Omeprazole 20 MG Delayed Release Oral Ca psule omeprazole 20 mg capsule,delayed release omeprazole 20 mg capsule,delayed release completed omeprazole 20 MG Delayed Release Oral Capsule [place] ([facility]) Ondansetron 4 MG Disintegrating Oral Tab let ondansetron 4 mg disintegrating tablet ondansetron 4 mg disintegrating tablet completed ondansetron 4 MG Disintegrating Oral Tablet [place] ([facility]) cetirizine hydrochloride 10 MG Oral Tabl et cetirizine 10 mg tablet TAKE ONE TABLET BY MOUTH EVERY DAY cetirizine 10 mg tablet TAKE ONE TABLET BY MOUTH EVERY DAY completed cetirizine hydro chloride 10 MG Oral Tablet [facility]) benzonatate 100 MG Oral Capsule benzonat ate 100 mg capsule TAKE ONE CAPSULE BY MOUTH THREE TIMES A DAY FOR COUGH benzonatate 100 mg capsule TAKE ONE CAPS ULE BY MOUTH THREE TIMES A DAY FOR COUGH com pleted benzonatate 100 MG Oral Capsule [place] ([facility]) imiquimod 50 MG/ML Topical Cream imiquim od 5 % topical cream packet APPLY TO AFFECTED AREA S ONCE DAILY NEEDED imiquimod 5 % topical cream packet APPLY TO AFFECTED AREA S ONCE DAILY NEEDED completed imiquimod 50 MG/ML Topical Cream [place] ([facility]) fluticasone furoate 0.1 MG/ACTUAT Dry Po wder Inhaler Arnuity Ellipta 100 mcg/actuation powder for inhalation INHALE 1 PUFF BY MOUTH ONCE DAILY Arnuity Ellipta 100 mcg/actuation powder for inhalation INHALE 1 PUFF BY MOUTH ONCE DAILY completed flutica sone furoate 0.1 MG/ACTUAT Dry Powder Inhaler [place] ([facility]) fluticasone furoate 0.1 MG/ACTUAT Dry Po wder Inhaler Arnuity Ellipta 100 mcg/actuation powder for inhalation INHALE 1 PUFF BY MOUTH ONCE DAILY Arnuity Ellipta 100 mcg/actuation powder for inhalation INHALE 1 PUFF BY MOUTH ONCE DAILY completed flutica sone furoate 0.1 MG/ACTUAT Dry Powder Inhaler [place] ([facility]) quetiapine 25 MG Oral Tablet quetiapine 25 mg tablet quetiapine 25 mg tablet completed quetiapine 25 MG Oral Tablet [place] ([facility]) Tab-A-Carlo 400 mcg tablet [id number] compl eted Tab-A-Carlo 400 mcg tablet [place] ([facility]) Fluorouracil 50 MG/ML Topical Cream fluo rouracil 5 % topical cream APPLY TO WARTS AT NIGHT COVER WITH BANDAID fluorouracil 5 % topical cream APPLY TO WARTS AT NIGHT COVER WITH BANDAID complete d fluorouracil 50 MG/ML Topical Cream [place] ([facility]) Cimetidine 300 MG Oral Tablet cimetidine 300 mg tablet TAKE TWO TABLETS BY MOUTH TWICE A DAY cimetidine 300 mg tablet TAKE TWO TABLETS BY MOUTH TWICE A DAY completed cimetidine 300 MG Oral Tablet [place] ([facility]) quetiapine 25 MG Oral Tablet quetiapine 25 mg tablet quetiapine 25 mg tablet completed quetiapine 25 MG Oral Tablet [place] ([facility]) Potassium Chloride 20 MEQ Extended Relea se Oral Tablet potassium chloride ER 20 mEq tablet,extended release TAKE ONE TABLET BY MOUTH EVERY DAY potassium chloride ER 20 mEq tablet,extended release TAKE ONE TABLET BY MOUTH EVERY DAY completed potassium chlo ride 20 MEQ Extended Release Oral Tablet [place] ([facility]) quetiapine 50 MG Oral Tablet quetiapine 50 mg tablet quetiapine 50 mg tablet completed quetiapine 50 MG Oral Tablet [place] ([facility]) Azithromycin 250 MG Oral Tablet azithromycin 250 mg ta blet azithromycin 250 mg tablet completed azithromycin 25 0 MG Oral Tablet [place] ([facility]) quetiapine 25 MG Oral Tablet quetiapine 25 mg tablet quetiapine 25 mg tablet completed quetiapine 25 MG Oral Tablet [place] ([facility]) imiquimod 50 MG/ML Topical Cream imiquim od 5 % topical cream packet APPLY TO AFFECTED AREA S ONCE DAILY NEEDED imiquimod 5 % topical cream packet APPLY TO AFFECTED AREA S ONCE DAILY NEEDED completed imiquimod 50 MG/ML Topical Cream [place] ([facility]) Azithromycin 250 MG Oral Tablet azithromycin 250 mg ta blet azithromycin 250 mg tablet completed azithromycin 25 0 MG Oral Tablet [place] ([facility]) Tab-A-Carlo 400 mcg tablet [id number] compl eted Tab-A-Carlo 400 mcg tablet [place] ([facility]) Hydroxyzine Hydrochloride 50 MG Oral Tablet hydroxyzin e HCl 50 mg tablet hydroxyzine HCl 50 mg tablet completed hydroxyzine hydrochloride 50 MG Oral Tablet [place] ([facility]) Doxycycline Monohydrate 100 MG Oral Caps ule doxycycline monohydrate 100 mg capsule doxycycline monohydrate 100 mg capsule completed doxycycline monohydrate 100 MG Oral Capsule [place] ([facility]) Fluorouracil 50 MG/ML Topical Cream fluo rouracil 5 % topical cream APPLY TO WARTS AT NIGHT COVER WITH BANDAID fluorouracil 5 % topical cream APPLY TO WARTS AT NIGHT COVER WITH BANDAID complete d fluorouracil 50 MG/ML Topical Cream [place] ([facility]) quetiapine 50 MG Oral Tablet quetiapine 50 mg tablet quetiapine 50 mg tablet completed quetiapine 50 MG Oral Tablet [place] ([facility]) quetiapine 25 MG Oral Tablet quetiapine 25 mg tablet quetiapine 25 mg tablet completed quetiapine 25 MG Oral Tablet [place] ([facility]) quetiapine 25 MG Oral Tablet quetiapine 25 mg tablet quetiapine 25 mg tablet completed quetiapine 25 MG Oral Tablet [place] ([facility]) imiquimod 50 MG/ML Topical Cream imiquim od 5 % topical cream packet APPLY TO AFFECTED AREA S ONCE DAILY NEEDED imiquimod 5 % topical cream packet APPLY TO AFFECTED AREA S ONCE DAILY NEEDED completed imiquimod 50 MG/ML Topical Cream [place] ([facility]) Cimetidine 300 MG Oral Tablet cimetidine 300 mg tablet TAKE TWO TABLETS BY MOUTH TWICE A DAY cimetidine 300 mg tablet TAKE TWO TABLETS BY MOUTH TWICE A DAY completed cimetidine 300 MG Oral Tablet [place] ([facility]) Prednisone 20 MG Oral Tablet prednisone 20 mg tablet TAKE 2 TABLETS BY MOUTH EVERY DAY prednisone 20 mg tablet TAKE 2 TABLETS BY MOUTH EVERY DAY completed prednisone 20 MG Oral Tablet [facility] ([facility]) valacyclovir 1000 MG Oral Tablet valacyc lovir 1 gram tablet TAKE ONE TABLET BY MOUTH TWICE A DAY FOR 3 DAYS valacyclovir 1 gram tablet TAKE ONE TABL ET BY MOUTH TWICE A DAY FOR 3 DAYS completed valacyclovir 1000 MG Oral Tablet [place] ([facility]) Cimetidine 300 MG Oral Tablet cimetidine 300 mg tablet TAKE TWO TABLETS BY MOUTH TWICE A DAY cimetidine 300 mg tablet TAKE TWO TABLETS BY MOUTH TWICE A DAY completed cimetidine 300 MG Oral Tablet [place] ([facility]) Ondansetron 4 MG Disintegrating Oral Tab let ondansetron 4 mg disintegrating tablet ondansetron 4 mg disintegrating tablet completed ondansetron 4 MG Disintegrating Oral Tablet [place] ([facility]) Ondansetron 4 MG Disintegrating Oral Tab let ondansetron 4 mg disintegrating tablet ondansetron 4 mg disintegrating tablet completed ondansetron 4 MG Disintegrating Oral Tablet [place] ([facility]) valacyclovir 1000 MG Oral Tablet valacyc lovir 1 gram tablet TAKE ONE TABLET BY MOUTH TWICE A DAY FOR 3 DAYS valacyclovir 1 gram tablet TAKE ONE TABL ET BY MOUTH TWICE A DAY FOR 3 DAYS completed valacyclovir 1000 MG Oral Tablet [place] ([facility]) chlorhexidine gluconate 1.2 MG/ML Mouthw tabitha chlorhexidine gluconate 0.12 % mouthwash chlorhexidine gluconate 0.12 % mouthwash completed chlorhexidine gluconate 1.2 MG/ML Mouthwash [place] ([facility]) Doxycycline Monohydrate 100 MG Oral Caps ule doxycycline monohydrate 100 mg capsule doxycycline monohydrate 100 mg capsule completed doxycycline monohydrate 100 MG Oral Capsule [place] ([facility]) valacyclovir 1000 MG Oral Tablet valacyc lovir 1 gram tablet TAKE ONE TABLET BY MOUTH TWICE A DAY FOR 3 DAYS valacyclovir 1 gram tablet TAKE ONE TABL ET BY MOUTH TWICE A DAY FOR 3 DAYS completed valacyclovir 1000 MG Oral Tablet [place] ([facility]) cetirizine hydrochloride 10 MG Oral Tabl et cetirizine 10 mg tablet TAKE ONE TABLET BY MOUTH EVERY DAY cetirizine 10 mg tablet TAKE ONE TABLET BY MOUTH EVERY DAY completed cetirizine hydro chloride 10 MG Oral Tablet [place] ([facility]) valacyclovir 1000 MG Oral Tablet valacyc lovir 1 gram tablet TAKE ONE TABLET BY MOUTH TWICE A DAY FOR 3 DAYS valacyclovir 1 gram tablet TAKE ONE TABL ET BY MOUTH TWICE A DAY FOR 3 DAYS completed valacyclovir 1000 MG Oral Tablet [place] ([facility]) Cimetidine 300 MG Oral Tablet cimetidine 300 mg tablet TAKE TWO TABLETS BY MOUTH TWICE A DAY cimetidine 300 mg tablet TAKE TWO TABLETS BY MOUTH TWICE A DAY completed cimetidine 300 MG Oral Tablet [place] ([facility]) cetirizine hydrochloride 10 MG Oral Tabl et cetirizine 10 mg tablet TAKE ONE TABLET BY MOUTH EVERY DAY cetirizine 10 mg tablet TAKE ONE TABLET BY MOUTH EVERY DAY completed cetirizine hydro chloride 10 MG Oral Tablet [place] ([facility]) 12 HR Guaifenesin 600 MG Extended Releas e Oral Tablet [Mucinex] Mucinex 600 mg tablet, extended release Mucinex 600 mg tablet, extended release completed 12 HR guaifenesin 600 MG Extende d Release Oral Tablet [Mucinex] [place] ([facility]) Omeprazole 20 MG Delayed Release Oral Ca psule omeprazole 20 mg capsule,delayed release omeprazole 20 mg capsule,delayed release completed omeprazole 20 MG Delayed Release Oral Capsule [place] ([facility]) Sulfamethoxazole 800 MG / Trimethoprim 1 60 MG Oral Tablet sulfamethoxazole 800 mg-trimethoprim 160 mg tablet sulfamethoxazole 800 mg-trimethoprim 160 mg tablet completed sulfame thoxazole 800 MG / trimethoprim 160 MG Oral Tablet [place] ([facility]) fluticasone furoate 0.1 MG/ACTUAT Dry Po wder Inhaler Arnuity Ellipta 100 mcg/actuation powder for inhalation INHALE 1 PUFF BY MOUTH ONCE DAILY Arnuity Ellipta 100 mcg/actuation powder for inhalation INHALE 1 PUFF BY MOUTH ONCE DAILY completed flutica sone furoate 0.1 MG/ACTUAT Dry Powder Inhaler [place] ([facility]) Omeprazole 20 MG Delayed Release Oral Ca psule omeprazole 20 mg capsule,delayed release omeprazole 20 mg capsule,delayed release completed omeprazole 20 MG Delayed Release Oral Capsule [place] ([facility]) meloxicam 7.5 MG Oral Tablet meloxicam 7 .5 mg tablet TAKE ONE TABLET BY MOUTH EVERY DAY meloxicam 7.5 mg tablet TAKE ONE TABLET BY MOUTH EVERY DAY completed meloxicam 7.5 MG Oral Tablet [place] ([facility]) quetiapine 25 MG Oral Tablet quetiapine 25 mg tablet quetiapine 25 mg tablet completed quetiapine 25 MG Oral Tablet [place] ([facility]) quetiapine 25 MG Oral Tablet quetiapine 25 mg tablet quetiapine 25 mg tablet completed quetiapine 25 MG Oral Tablet [place] ([facility]) quetiapine 50 MG Oral Tablet quetiapine 50 mg tablet quetiapine 50 mg tablet completed quetiapine 50 MG Oral Tablet [place] ([facility]) Fluorouracil 50 MG/ML Topical Cream fluo rouracil 5 % topical cream APPLY TO WARTS AT NIGHT COVER WITH BANDAID fluorouracil 5 % topical cream APPLY TO WARTS AT NIGHT COVER WITH BANDAID complete d fluorouracil 50 MG/ML Topical Cream [place] ([facility]) chlorhexidine gluconate 1.2 MG/ML Mouthw tabitha chlorhexidine gluconate 0.12 % mouthwash chlorhexidine gluconate 0.12 % mouthwash completed chlorhexidine gluconate 1.2 MG/ML Mouthwash [place] ([facility]) Ondansetron 4 MG Disintegrating Oral Tab let ondansetron 4 mg disintegrating tablet ondansetron 4 mg disintegrating tablet completed ondansetron 4 MG Disintegrating Oral Tablet [place] ([facility]) Hydroxyzine Hydrochloride 50 MG Oral Tablet hydroxyzin e HCl 50 mg tablet hydroxyzine HCl 50 mg tablet completed hydroxyzine hydrochloride 50 MG Oral Tablet [place] ([facility]) Fluorouracil 50 MG/ML Topical Cream fluo rouracil 5 % topical cream APPLY TO WARTS AT NIGHT COVER WITH BANDAID fluorouracil 5 % topical cream APPLY TO WARTS AT NIGHT COVER WITH BANDAID complete d fluorouracil 50 MG/ML Topical Cream [place] ([facility]) valacyclovir 1000 MG Oral Tablet valacyc lovir 1 gram tablet TAKE ONE TABLET BY MOUTH TWICE A DAY FOR 3 DAYS valacyclovir 1 gram tablet TAKE ONE TABL ET BY MOUTH TWICE A DAY FOR 3 DAYS completed valacyclovir 1000 MG Oral Tablet [place] ([facility]) Fluorouracil 50 MG/ML Topical Cream fluo rouracil 5 % topical cream APPLY TO WARTS AT NIGHT COVER WITH BANDAID fluorouracil 5 % topical cream APPLY TO WARTS AT NIGHT COVER WITH BANDAID complete d fluorouracil 50 MG/ML Topical Cream [place] ([facility]) chlorhexidine gluconate 1.2 MG/ML Mouthw tabitha chlorhexidine gluconate 0.12 % mouthwash chlorhexidine gluconate 0.12 % mouthwash completed chlorhexidine gluconate 1.2 MG/ML Mouthwash [place] ([facility]) Azithromycin 250 MG Oral Tablet azithromycin 250 mg ta blet azithromycin 250 mg tablet completed azithromycin 25 0 MG Oral Tablet [place] ([facility]) doxycycline hyclate 100 MG Oral Capsule doxycycline hyclate 100 mg capsule TAKE ONE CAPSULE BY MOUTH TWO TIMES A DAY DIRECTED FOR 7 DAYS doxycycline hyclate 100 mg capsule TAKE ONE CAPSULE BY MOUTH TWO TIMES A DAY DIRECTED FOR 7 DAYS completed doxycycline hyclate 100 MG Oral Capsule [place] ([facility]) Azithromycin 250 MG Oral Tablet azithromycin 250 mg ta blet azithromycin 250 mg tablet completed azithromycin 25 0 MG Oral Tablet [place] ([facility]) Doxycycline Monohydrate 100 MG Oral Caps ule doxycycline monohydrate 100 mg capsule doxycycline monohydrate 100 mg capsule completed doxycycline monohydrate 100 MG Oral Capsule [place] ([facility]) Omeprazole 20 MG Delayed Release Oral Ca psule omeprazole 20 mg capsule,delayed release omeprazole 20 mg capsule,delayed release completed omeprazole 20 MG Delayed Release Oral Capsule [place] ([facility]) meloxicam 7.5 MG Oral Tablet meloxicam 7 .5 mg tablet TAKE ONE TABLET BY MOUTH EVERY DAY meloxicam 7.5 mg tablet TAKE ONE TABLET BY MOUTH EVERY DAY completed meloxicam 7.5 MG Oral Tablet [place] ([facility]) Omeprazole 40 MG Delayed Release Oral Ca psule omeprazole 40 mg capsule,delayed release TAKE ONE CAPSULE BY MOUTH EVERY DAY omeprazole 40 mg capsule,delayed release TAKE ONE CAPSULE BY MOUTH EVERY DAY completed omeprazole 40 MG Delayed Release Oral Capsule [place] ([facility]) fluticasone furoate 0.1 MG/ACTUAT Dry Po wder Inhaler Arnuity Ellipta 100 mcg/actuation powder for inhalation INHALE 1 PUFF BY MOUTH ONCE DAILY Arnuity Ellipta 100 mcg/actuation powder for inhalation INHALE 1 PUFF BY MOUTH ONCE DAILY completed flutica sone furoate 0.1 MG/ACTUAT Dry Powder Inhaler [place] ([facility]) Hydroxyzine Hydrochloride 50 MG Oral Tablet hydroxyzin e HCl 50 mg tablet hydroxyzine HCl 50 mg tablet completed hydroxyzine hydrochloride 50 MG Oral Tablet [place] ([facility]) Ondansetron 4 MG Disintegrating Oral Tab let ondansetron 4 mg disintegrating tablet ondansetron 4 mg disintegrating tablet completed ondansetron 4 MG Disintegrating Oral Tablet [place] ([facility]) Clindamycin 10 MG/ML Topical Solution cl indamycin phosphate 1 % topical solution clindamycin phosphate 1 % topical solution completed clindamycin 10 MG/ML Topical Solution [place] ([facility]) quetiapine 25 MG Oral Tablet quetiapine 25 mg tablet quetiapine 25 mg tablet completed quetiapine 25 MG Oral Tablet [place] ([facility]) benzonatate 100 MG Oral Capsule benzonat ate 100 mg capsule TAKE ONE CAPSULE BY MOUTH THREE TIMES A DAY FOR COUGH benzonatate 100 mg capsule TAKE ONE CAPS ULE BY MOUTH THREE TIMES A DAY FOR COUGH com pleted benzonatate 100 MG Oral Capsule [place] ([facility]) doxycycline hyclate 100 MG Oral Capsule doxycycline hyclate 100 mg capsule TAKE ONE CAPSULE BY MOUTH TWO TIMES A DAY DIRECTED FOR 7 DAYS doxycycline hyclate 100 mg capsule TAKE ONE CAPSULE BY MOUTH TWO TIMES A DAY DIRECTED FOR 7 DAYS completed doxycycline hyclate 100 MG Oral Capsule [place] ([facility]) Doxycycline Monohydrate 100 MG Oral Caps ule doxycycline monohydrate 100 mg capsule doxycycline monohydrate 100 mg capsule completed doxycycline monohydrate 100 MG Oral Capsule [place] ([facility]) Sulfamethoxazole 800 MG / Trimethoprim 1 60 MG Oral Tablet sulfamethoxazole 800 mg-trimethoprim 160 mg tablet sulfamethoxazole 800 mg-trimethoprim 160 mg tablet completed sulfame thoxazole 800 MG / trimethoprim 160 MG Oral Tablet [place] ([facility]) Tab-A-Carlo 400 mcg tablet [id number] compl eted Tab-A-Carlo 400 mcg tablet [place] ([facility]) chlorhexidine gluconate 1.2 MG/ML Mouthw tabitha chlorhexidine gluconate 0.12 % mouthwash chlorhexidine gluconate 0.12 % mouthwash completed chlorhexidine gluconate 1.2 MG/ML Mouthwash [place] ([facility]) Omeprazole 40 MG Delayed Release Oral Ca psule omeprazole 40 mg capsule,delayed release TAKE ONE CAPSULE BY MOUTH EVERY DAY omeprazole 40 mg capsule,delayed release TAKE ONE CAPSULE BY MOUTH EVERY DAY completed omeprazole 40 MG Delayed Release Oral Capsule [place] ([facility]) imiquimod 50 MG/ML Topical Cream imiquim od 5 % topical cream packet APPLY TO AFFECTED AREA S ONCE DAILY NEEDED imiquimod 5 % topical cream packet APPLY TO AFFECTED AREA S ONCE DAILY NEEDED completed imiquimod 50 MG/ML Topical Cream [place] ([facility]) meloxicam 7.5 MG Oral Tablet meloxicam 7 .5 mg tablet TAKE ONE TABLET BY MOUTH EVERY DAY meloxicam 7.5 mg tablet TAKE ONE TABLET BY MOUTH EVERY DAY completed meloxicam 7.5 MG Oral Tablet [place] ([facility]) 12 HR Guaifenesin 600 MG Extended Releas e Oral Tablet [Mucinex] Mucinex 600 mg tablet, extended release Mucinex 600 mg tablet, extended release completed 12 HR guaifenesin 600 MG Extende d Release Oral Tablet [Mucinex] [place] ([facility]) Clindamycin 10 MG/ML Topical Solution cl indamycin phosphate 1 % topical solution clindamycin phosphate 1 % topical solution completed clindamycin 10 MG/ML Topical Solution [place] ([facility]) Polyethylene Glycol 400 4 MG/ML / [...] propylene glycol 3 MG/ML Ophthalmic Solution [Systane] [place] ([facility]) Doxycycline Monohydrate 100 MG Oral Caps ule doxycycline monohydrate 100 mg capsule doxycycline monohydrate 100 mg capsule completed doxycycline monohydrate 100 MG Oral Capsule [place] ([facility]) Prednisone 20 MG Oral Tablet prednisone 20 mg tablet TAKE ONE TABLET BY MOUTH TWICE A DAY prednisone 20 mg tablet TAKE ONE TABLET BY MOUTH TWICE A DAY completed prednisone 20 MG Ora l Tablet [place] ([facility]) Omeprazole 20 MG Delayed Release Oral Ca psule omeprazole 20 mg capsule,delayed release omeprazole 20 mg capsule,delayed release completed omeprazole 20 MG Delayed Release Oral Capsule [place] ([facility]) meloxicam 7.5 MG Oral Tablet meloxicam 7 .5 mg tablet TAKE ONE TABLET BY MOUTH EVERY DAY meloxicam 7.5 mg tablet TAKE ONE TABLET BY MOUTH EVERY DAY completed meloxicam 7.5 MG Oral Tablet [place] ([facility]) Docusate Sodium 100 MG Oral Capsule docu sate sodium 100 mg capsule TAKE ONE CAPSULE BY MOUTH EVERY DAY docusate sodium 100 mg capsule TAKE ONE CAPSULE BY MOUTH EVERY DAY completed docusa te sodium 100 MG Oral Capsule [place] ([facility]) Cimetidine 300 MG Oral Tablet cimetidine 300 mg tablet TAKE TWO TABLETS BY MOUTH TWICE A DAY cimetidine 300 mg tablet TAKE TWO TABLETS BY MOUTH TWICE A DAY completed cimetidine 300 MG Oral Tablet [place] ([facility]) Fluorouracil 50 MG/ML Topical Cream fluo rouracil 5 % topical cream APPLY TO WARTS AT NIGHT COVER WITH BANDAID fluorouracil 5 % topical cream APPLY TO WARTS AT NIGHT COVER WITH BANDAID complete d fluorouracil 50 MG/ML Topical Cream [facility] er) Cimetidine 300 MG Oral Tablet cimetidine 300 mg tablet TAKE TWO TABLETS BY MOUTH TWICE A DAY cimetidine 300 mg tablet TAKE TWO TABLETS BY MOUTH TWICE A DAY completed cimetidine 300 MG Oral Tablet [place] ([facility]) Potassium Chloride 20 MEQ Extended Relea se Oral Tablet potassium chloride ER 20 mEq tablet,extended release TAKE ONE TABLET BY MOUTH EVERY DAY potassium chloride ER 20 mEq tablet,extended release TAKE ONE TABLET BY MOUTH EVERY DAY completed potassium chlo ride 20 MEQ Extended Release Oral Tablet [place] ([facility]) Cimetidine 300 MG Oral Tablet cimetidine 300 mg tablet TAKE TWO TABLETS BY MOUTH TWICE A DAY cimetidine 300 mg tablet TAKE TWO TABLETS BY MOUTH TWICE A DAY completed cimetidine 300 MG Oral Tablet [place] ([facility]) Azithromycin 250 MG Oral Tablet azithromycin 250 mg ta blet azithromycin 250 mg tablet completed azithromycin 25 0 MG Oral Tablet [place] ([facility]) Omeprazole 20 MG Delayed Release Oral Ca psule omeprazole 20 mg capsule,delayed release omeprazole 20 mg capsule,delayed release completed omeprazole 20 MG Delayed Release Oral Capsule [place] ([facility]) Metoclopramide 5 MG Oral Tablet metoclopramide 5 mg ta blet metoclopramide 5 mg tablet completed metoclopramide 5 MG Oral Tablet [place] ([facility]) Fluorouracil 50 MG/ML Topical Cream fluo rouracil 5 % topical cream APPLY TO WARTS AT NIGHT COVER WITH BANDAID fluorouracil 5 % topical cream APPLY TO WARTS AT NIGHT COVER WITH BANDAID complete d fluorouracil 50 MG/ML Topical Cream [place] ([facility]) benzonatate 100 MG Oral Capsule benzonat ate 100 mg capsule TAKE ONE CAPSULE BY MOUTH THREE TIMES A DAY FOR COUGH benzonatate 100 mg capsule TAKE ONE CAPS ULE BY MOUTH THREE TIMES A DAY FOR COUGH com pleted benzonatate 100 MG Oral Capsule [place] ([facility]) Albuterol 0.83 MG/ML Inhalant Solution a lbuterol sulfate 2.5 mg/3 mL (0.083 %) solution for nebulization INHALE ONE VIAL VIA NEBULIZER FOUR TIMES A DAY NEEDED albuterol sulfate 2.5 mg/3 mL (0.083 %) solution for nebulization INHALE ONE VIAL VIA NEBULIZER FOUR TIMES A DAY NEEDED completed albuterol 0.83 MG/ML Inhalation Solution [place] ([facility]) Hydroxyzine Hydrochloride 50 MG Oral Tablet hydroxyzin e HCl 50 mg tablet hydroxyzine HCl 50 mg tablet completed hydroxyzine hydrochloride 50 MG Oral Tablet [place] ([facility]) Albuterol 0.83 MG/ML Inhalant Solution a lbuterol sulfate 2.5 mg/3 mL (0.083 %) solution for nebulization INHALE ONE VIAL VIA NEBULIZER FOUR TIMES A DAY NEEDED albuterol sulfate 2.5 mg/3 mL (0.083 %) solution for nebulization INHALE ONE VIAL VIA NEBULIZER FOUR TIMES A DAY NEEDED completed albuterol 0.83 MG/ML Inhalation Solution [place] ([facility]) Docusate Sodium 100 MG Oral Capsule docu sate sodium 100 mg capsule TAKE ONE CAPSULE BY MOUTH EVERY DAY docusate sodium 100 mg capsule TAKE ONE CAPSULE BY MOUTH EVERY DAY completed docusa te sodium 100 MG Oral Capsule [place] ([facility]) Azithromycin 250 MG Oral Tablet azithromycin 250 mg ta blet azithromycin 250 mg tablet completed azithromycin 25 0 MG Oral Tablet [place] ([facility]) quetiapine 25 MG Oral Tablet quetiapine 25 mg tablet quetiapine 25 mg tablet completed quetiapine 25 MG Oral Tablet [place] ([facility]) Fluorouracil 50 MG/ML Topical Cream fluo rouracil 5 % topical cream APPLY TO WARTS AT NIGHT COVER WITH BANDAID fluorouracil 5 % topical cream APPLY TO WARTS AT NIGHT COVER WITH BANDAID complete d fluorouracil 50 MG/ML Topical Cream [place] ([facility]) Fluorouracil 50 MG/ML Topical Cream fluo rouracil 5 % topical cream APPLY TO WARTS AT NIGHT COVER WITH BANDAID fluorouracil 5 % topical cream APPLY TO WARTS AT NIGHT COVER WITH BANDAID complete d fluorouracil 50 MG/ML Topical Cream [place] ([facility]) Doxycycline Monohydrate 100 MG Oral Caps ule doxycycline monohydrate 100 mg capsule doxycycline monohydrate 100 mg capsule completed doxycycline monohydrate 100 MG Oral Capsule [place] ([facility]) Fluorouracil 50 MG/ML Topical Cream fluo rouracil 5 % topical cream APPLY TO WARTS AT NIGHT COVER WITH BANDAID fluorouracil 5 % topical cream APPLY TO WARTS AT NIGHT COVER WITH BANDAID complete d fluorouracil 50 MG/ML Topical Cream [place] ([facility]) Albuterol 0.83 MG/ML Inhalant Solution a lbuterol sulfate 2.5 mg/3 mL (0.083 %) solution for nebulization INHALE ONE VIAL VIA NEBULIZER FOUR TIMES A DAY NEEDED albuterol sulfate 2.5 mg/3 mL (0.083 %) solution for nebulization INHALE ONE VIAL VIA NEBULIZER FOUR TIMES A DAY NEEDED completed albuterol 0.83 MG/ML Inhalation Solution [place] ([facility]) Docusate Sodium 100 MG Oral Capsule docu sate sodium 100 mg capsule TAKE ONE CAPSULE BY MOUTH EVERY DAY docusate sodium 100 mg capsule TAKE ONE CAPSULE BY MOUTH EVERY DAY completed docusa te sodium 100 MG Oral Capsule [place] ([facility]) Omeprazole 20 MG Delayed Release Oral Ca psule omeprazole 20 mg capsule,delayed release omeprazole 20 mg capsule,delayed release completed omeprazole 20 MG Delayed Release Oral Capsule [place] ([facility]) Ondansetron 4 MG Disintegrating Oral Tab let ondansetron 4 mg disintegrating tablet ondansetron 4 mg disintegrating tablet completed ondansetron 4 MG Disintegrating Oral Tablet [place] ([facility]) doxycycline hyclate 100 MG Oral Capsule doxycycline hyclate 100 mg capsule TAKE ONE CAPSULE BY MOUTH TWO TIMES A DAY DIRECTED FOR 7 DAYS doxycycline hyclate 100 mg capsule TAKE ONE CAPSULE BY MOUTH TWO TIMES A DAY DIRECTED FOR 7 DAYS completed doxycycline hyclate 100 MG Oral Capsule [place] ([facility]) cetirizine hydrochloride 10 MG Oral Tabl et cetirizine 10 mg tablet TAKE ONE TABLET BY MOUTH EVERY DAY cetirizine 10 mg tablet TAKE ONE TABLET BY MOUTH EVERY DAY completed cetirizine hydro chloride 10 MG Oral Tablet [place] ([facility]) Clindamycin 10 MG/ML Topical Solution cl indamycin phosphate 1 % topical solution clindamycin phosphate 1 % topical solution completed clindamycin 10 MG/ML Topical Solution [place] ([facility]) Clindamycin 10 MG/ML Topical Solution cl indamycin phosphate 1 % topical solution clindamycin phosphate 1 % topical solution completed clindamycin 10 MG/ML Topical Solution [place] ([facility]) Potassium Chloride 20 MEQ Extended Relea se Oral Tablet potassium chloride ER 20 mEq tablet,extended release TAKE ONE TABLET BY MOUTH EVERY DAY potassium chloride ER 20 mEq tablet,extended release TAKE ONE TABLET BY MOUTH EVERY DAY completed potassium chlo ride 20 MEQ Extended Release Oral Tablet [facility]) Sulfamethoxazole 800 MG / Trimethoprim 1 60 MG Oral Tablet sulfamethoxazole 800 mg-trimethoprim 160 mg tablet sulfamethoxazole 800 mg-trimethoprim 160 mg tablet completed sulfame thoxazole 800 MG / trimethoprim 160 MG Oral Tablet [place] ([facility]) Prednisone 20 MG Oral Tablet prednisone 20 mg tablet TAKE ONE TABLET BY MOUTH TWICE A DAY prednisone 20 mg tablet TAKE ONE TABLET BY MOUTH TWICE A DAY completed prednisone 20 MG Ora l Tablet [facility]) Hydroxyzine Hydrochloride 50 MG Oral Tablet hydroxyzin e HCl 50 mg tablet hydroxyzine HCl 50 mg tablet completed hydroxyzine hydrochloride 50 MG Oral Tablet [place] ([facility]) quetiapine 25 MG Oral Tablet quetiapine 25 mg tablet quetiapine 25 mg tablet completed quetiapine 25 MG Oral Tablet [place] ([facility]) chlorhexidine gluconate 1.2 MG/ML Mouthw tabitha chlorhexidine gluconate 0.12 % mouthwash chlorhexidine gluconate 0.12 % mouthwash completed chlorhexidine gluconate 1.2 MG/ML Mouthwash [place] ([facility]) Polyethylene Glycol 400 4 MG/ML / [...] propylene glycol 3 MG/ML Ophthalmic Solution [Systane] [place] ([facility]) valacyclovir 1000 MG Oral Tablet valacyc lovir 1 gram tablet TAKE ONE TABLET BY MOUTH TWICE A DAY FOR 3 DAYS valacyclovir 1 gram tablet TAKE ONE TABL ET BY MOUTH TWICE A DAY FOR 3 DAYS completed valacyclovir 1000 MG Oral Tablet [place] ([facility]) Tab-A-Carlo 400 mcg tablet [id number] compl eted Tab-A-Carlo 400 mcg tablet [facility]) quetiapine 50 MG Oral Tablet quetiapine 50 mg tablet quetiapine 50 mg tablet completed quetiapine 50 MG Oral Tablet [facility]) Tab-A-Carlo 400 mcg tablet [id number] compl eted Tab-A-Carlo 400 mcg tablet [place] ([facility]) chlorhexidine gluconate 1.2 MG/ML Mouthw tabitha chlorhexidine gluconate 0.12 % mouthwash chlorhexidine gluconate 0.12 % mouthwash completed chlorhexidine gluconate 1.2 MG/ML Mouthwash [place] ([facility]) Sulfamethoxazole 800 MG / Trimethoprim 1 60 MG Oral Tablet sulfamethoxazole 800 mg-trimethoprim 160 mg tablet sulfamethoxazole 800 mg-trimethoprim 160 mg tablet completed sulfame thoxazole 800 MG / trimethoprim 160 MG Oral Tablet [place] ([facility]) imiquimod 50 MG/ML Topical Cream imiquim od 5 % topical cream packet APPLY TO AFFECTED AREA S ONCE DAILY NEEDED imiquimod 5 % topical cream packet APPLY TO AFFECTED AREA S ONCE DAILY NEEDED completed imiquimod 50 MG/ML Topical Cream [place] ([facility]) Fluorouracil 50 MG/ML Topical Cream fluo rouracil 5 % topical cream APPLY TO WARTS AT NIGHT COVER WITH BANDAID fluorouracil 5 % topical cream APPLY TO WARTS AT NIGHT COVER WITH BANDAID complete d fluorouracil 50 MG/ML Topical Cream [place] ([facility]) Prednisone 20 MG Oral Tablet prednisone 20 mg tablet TAKE ONE TABLET BY MOUTH TWICE A DAY prednisone 20 mg tablet TAKE ONE TABLET BY MOUTH TWICE A DAY completed prednisone 20 MG Ora l Tablet [place] ([facility]) Polyethylene Glycol 400 4 MG/ML / [...] propylene glycol 3 MG/ML Ophthalmic Solution [Systane] [place] ([facility]) benzonatate 100 MG Oral Capsule benzonat ate 100 mg capsule TAKE ONE CAPSULE BY MOUTH THREE TIMES A DAY FOR COUGH benzonatate 100 mg capsule TAKE ONE CAPS ULE BY MOUTH THREE TIMES A DAY FOR COUGH com pleted benzonatate 100 MG Oral Capsule [place] ([facility]) Azithromycin 250 MG Oral Tablet azithromycin 250 mg ta blet azithromycin 250 mg tablet completed azithromycin 25 0 MG Oral Tablet [place] ([facility]) Hydroxyzine Hydrochloride 50 MG Oral Tablet hydroxyzin e HCl 50 mg tablet hydroxyzine HCl 50 mg tablet completed hydroxyzine hydrochloride 50 MG Oral Tablet [place] ([facility]) Cimetidine 300 MG Oral Tablet cimetidine 300 mg tablet TAKE TWO TABLETS BY MOUTH TWICE A DAY cimetidine 300 mg tablet TAKE TWO TABLETS BY MOUTH TWICE A DAY completed cimetidine 300 MG Oral Tablet [place] ([facility]) Hydroxyzine Hydrochloride 50 MG Oral Tablet hydroxyzin e HCl 50 mg tablet hydroxyzine HCl 50 mg tablet completed hydroxyzine hydrochloride 50 MG Oral Tablet [place] ([facility]) Fluorouracil 50 MG/ML Topical Cream fluo rouracil 5 % topical cream APPLY TO WARTS AT NIGHT COVER WITH BANDAID fluorouracil 5 % topical cream APPLY TO WARTS AT NIGHT COVER WITH BANDAID complete d fluorouracil 50 MG/ML Topical Cream [place] ([facility]) Fluorouracil 50 MG/ML Topical Cream fluo rouracil 5 % topical cream APPLY TO WARTS AT NIGHT COVER WITH BANDAID fluorouracil 5 % topical cream APPLY TO WARTS AT NIGHT COVER WITH BANDAID complete d fluorouracil 50 MG/ML Topical Cream [place] ([facility]) chlorhexidine gluconate 1.2 MG/ML Mouthw tabitha chlorhexidine gluconate 0.12 % mouthwash chlorhexidine gluconate 0.12 % mouthwash completed chlorhexidine gluconate 1.2 MG/ML Mouthwash [place] ([facility]) meloxicam 7.5 MG Oral Tablet meloxicam 7 .5 mg tablet TAKE ONE TABLET BY MOUTH EVERY DAY meloxicam 7.5 mg tablet TAKE ONE TABLET BY MOUTH EVERY DAY completed meloxicam 7.5 MG Oral Tablet [place] ([facility]) imiquimod 50 MG/ML Topical Cream imiquim od 5 % topical cream packet APPLY TO AFFECTED AREA S ONCE DAILY NEEDED imiquimod 5 % topical cream packet APPLY TO AFFECTED AREA S ONCE DAILY NEEDED completed imiquimod 50 MG/ML Topical Cream [place] ([facility]) Ondansetron 4 MG Disintegrating Oral Tab let ondansetron 4 mg disintegrating tablet ondansetron 4 mg disintegrating tablet completed ondansetron 4 MG Disintegrating Oral Tablet [place] ([facility]) Polyethylene Glycol 400 4 MG/ML / [...] propylene glycol 3 MG/ML Ophthalmic Solution [Systane] [place] ([facility]) Azithromycin 250 MG Oral Tablet azithromycin 250 mg ta blet azithromycin 250 mg tablet completed azithromycin 25 0 MG Oral Tablet [place] ([facility]) Cimetidine 300 MG Oral Tablet cimetidine 300 mg tablet TAKE TWO TABLETS BY MOUTH TWICE A DAY cimetidine 300 mg tablet TAKE TWO TABLETS BY MOUTH TWICE A DAY completed cimetidine 300 MG Oral Tablet [place] ([facility]) chlorhexidine gluconate 1.2 MG/ML Mouthw tabitha chlorhexidine gluconate 0.12 % mouthwash chlorhexidine gluconate 0.12 % mouthwash completed chlorhexidine gluconate 1.2 MG/ML Mouthwash [place] ([facility]) Doxycycline Monohydrate 100 MG Oral Caps ule doxycycline monohydrate 100 mg capsule doxycycline monohydrate 100 mg capsule completed doxycycline monohydrate 100 MG Oral Capsule [place] ([facility]) Cimetidine 300 MG Oral Tablet cimetidine 300 mg tablet TAKE TWO TABLETS BY MOUTH TWICE A DAY cimetidine 300 mg tablet TAKE TWO TABLETS BY MOUTH TWICE A DAY completed cimetidine 300 MG Oral Tablet [facility]) Doxycycline Monohydrate 100 MG Oral Caps ule doxycycline monohydrate 100 mg capsule doxycycline monohydrate 100 mg capsule completed doxycycline monohydrate 100 MG Oral Capsule [place] ([facility]) chlorhexidine gluconate 1.2 MG/ML Mouthw tabitha chlorhexidine gluconate 0.12 % mouthwash chlorhexidine gluconate 0.12 % mouthwash completed chlorhexidine gluconate 1.2 MG/ML Mouthwash [facility]) Fluorouracil 50 MG/ML Topical Cream fluo rouracil 5 % topical cream APPLY TO WARTS AT NIGHT COVER WITH BANDAID fluorouracil 5 % topical cream APPLY TO WARTS AT NIGHT COVER WITH BANDAID complete d fluorouracil 50 MG/ML Topical Cream [place] ([facility]) 12 HR Guaifenesin 600 MG Extended Releas e Oral Tablet [Mucinex] Mucinex 600 mg tablet, extended release Mucinex 600 mg tablet, extended release completed 12 HR guaifenesin 600 MG Extende d Release Oral Tablet [Mucinex] [place] ([facility]) benzonatate 100 MG Oral Capsule benzonat ate 100 mg capsule TAKE ONE CAPSULE BY MOUTH THREE TIMES A DAY FOR COUGH benzonatate 100 mg capsule TAKE ONE CAPS ULE BY MOUTH THREE TIMES A DAY FOR COUGH com pleted benzonatate 100 MG Oral Capsule [place] ([facility]) imiquimod 50 MG/ML Topical Cream imiquim od 5 % topical cream packet APPLY TO AFFECTED AREA S ONCE DAILY NEEDED imiquimod 5 % topical cream packet APPLY TO AFFECTED AREA S ONCE DAILY NEEDED completed imiquimod 50 MG/ML Topical Cream [place] ([facility]) Doxycycline Monohydrate 100 MG Oral Caps ule doxycycline monohydrate 100 mg capsule doxycycline monohydrate 100 mg capsule completed doxycycline monohydrate 100 MG Oral Capsule [place] ([facility]) Polyethylene Glycol 400 4 MG/ML / [...] glycol 3 MG/ML Ophthalmic Solution [Systane] [place] ([facility]) Tab-A-Carlo 400 mcg tablet [id number] compl eted Tab-A-Carlo 400 mcg tablet [place] ([facility]) cetirizine hydrochloride 10 MG Oral Tabl et cetirizine 10 mg tablet TAKE ONE TABLET BY MOUTH EVERY DAY cetirizine 10 mg tablet TAKE ONE TABLET BY MOUTH EVERY DAY completed cetirizine hydro chloride 10 MG Oral Tablet [place] ([facility]) Ondansetron 4 MG Disintegrating Oral Tab let ondansetron 4 mg disintegrating tablet ondansetron 4 mg disintegrating tablet completed ondansetron 4 MG Disintegrating Oral Tablet [place] ([facility]) Sulfamethoxazole 800 MG / Trimethoprim 1 60 MG Oral Tablet sulfamethoxazole 800 mg-trimethoprim 160 mg tablet sulfamethoxazole 800 mg-trimethoprim 160 mg tablet completed sulfame thoxazole 800 MG / trimethoprim 160 MG Oral Tablet [place] ([facility]) Polyethylene Glycol 400 4 MG/ML / [...] propylene glycol 3 MG/ML Ophthalmic Solution [Systane] [place] ([facility]) quetiapine 25 MG Oral Tablet quetiapine 25 mg tablet quetiapine 25 mg tablet completed quetiapine 25 MG Oral Tablet [facility]) Azithromycin 250 MG Oral Tablet azithromycin 250 mg ta blet azithromycin 250 mg tablet completed azithromycin 25 0 MG Oral Tablet [facility]) Docusate Sodium 100 MG Oral Capsule docu sate sodium 100 mg capsule TAKE ONE CAPSULE BY MOUTH EVERY DAY docusate sodium 100 mg capsule TAKE ONE CAPSULE BY MOUTH EVERY DAY completed docusa te sodium 100 MG Oral Capsule [place] ([facility]) Docusate Sodium 100 MG Oral Capsule docu sate sodium 100 mg capsule TAKE ONE CAPSULE BY MOUTH EVERY DAY docusate sodium 100 mg capsule TAKE ONE CAPSULE BY MOUTH EVERY DAY completed docusa te sodium 100 MG Oral Capsule [facility]) chlorhexidine gluconate 1.2 MG/ML Mouthw tabitha chlorhexidine gluconate 0.12 % mouthwash chlorhexidine gluconate 0.12 % mouthwash completed chlorhexidine gluconate 1.2 MG/ML Mouthwash [facility]) Polyethylene Glycol 400 4 MG/ML / Propyl [...] propylene glycol 3 MG/ML Ophthalmic Solution [Systane] [place] ([facility]) Ondansetron 4 MG Disintegrating Oral Tab let ondansetron 4 mg disintegrating tablet ondansetron 4 mg disintegrating tablet completed ondansetron 4 MG Disintegrating Oral Tablet [place] ([facility]) valacyclovir 1000 MG Oral Tablet valacyc lovir 1 gram tablet TAKE ONE TABLET BY MOUTH TWICE A DAY FOR 3 DAYS valacyclovir 1 gram tablet TAKE ONE TABL ET BY MOUTH TWICE A DAY FOR 3 DAYS completed valacyclovir 1000 MG Oral Tablet [place] ([facility]) cetirizine hydrochloride 10 MG Oral Tabl et cetirizine 10 mg tablet TAKE ONE TABLET BY MOUTH EVERY DAY cetirizine 10 mg tablet TAKE ONE TABLET BY MOUTH EVERY DAY completed cetirizine hydro chloride 10 MG Oral Tablet [place] ([facility]) Tab-A-Carlo 400 mcg tablet [id number] compl eted Tab-A-Carlo 400 mcg tablet [place] ([facility]) Hydroxyzine Hydrochloride 50 MG Oral Tablet hydroxyzin e HCl 50 mg tablet hydroxyzine HCl 50 mg tablet completed hydroxyzine hydrochloride 50 MG Oral Tablet [place] ([facility]) 12 HR Guaifenesin 600 MG Extended Releas e Oral Tablet [Mucinex] Mucinex 600 mg tablet, extended release Mucinex 600 mg tablet, extended release completed 12 HR guaifenesin 600 MG Extende d Release Oral Tablet [Mucinex] [place] ([facility]) Potassium Chloride 20 MEQ Extended Relea se Oral Tablet potassium chloride ER 20 mEq tablet,extended release TAKE ONE TABLET BY MOUTH EVERY DAY potassium chloride ER 20 mEq tablet,extended release TAKE ONE TABLET BY MOUTH EVERY DAY completed potassium chlo ride 20 MEQ Extended Release Oral Tablet [place] ([facility]) quetiapine 50 MG Oral Tablet quetiapine 50 mg tablet quetiapine 50 mg tablet completed quetiapine 50 MG Oral Tablet [place] ([facility]) Metoclopramide 5 MG Oral Tablet metoclopramide 5 mg ta blet metoclopramide 5 mg tablet completed metoclopramide 5 MG Oral Tablet [place] ([facility]) benzonatate 100 MG Oral Capsule benzonat ate 100 mg capsule TAKE ONE CAPSULE BY MOUTH THREE TIMES A DAY FOR COUGH benzonatate 100 mg capsule TAKE ONE CAPS ULE BY MOUTH THREE TIMES A DAY FOR COUGH com pleted benzonatate 100 MG Oral Capsule [place] ([facility]) Azithromycin 250 MG Oral Tablet azithromycin 250 mg ta blet azithromycin 250 mg tablet completed azithromycin 25 0 MG Oral Tablet [place] ([facility]) Omeprazole 40 MG Delayed Release Oral Ca psule omeprazole (PRILOSEC) 40 MG capsule omeprazole (PRILOSEC) 40 MG capsule 40 mg Oral completed Take 40 mg by mouth daily. [facility] Take 40 mg by mouth daily. Tab-A-Carlo 400 mcg tablet [id number] compl eted Tab-A-Carlo 400 mcg tablet [place] ([facility]) Omeprazole 20 MG Delayed Release Oral Ca psule omeprazole 20 mg capsule,delayed release omeprazole 20 mg capsule,delayed release completed omeprazole 20 MG Delayed Release Oral Capsule [place] ([facility]) Sulfamethoxazole 800 MG / Trimethoprim 1 60 MG Oral Tablet sulfamethoxazole 800 mg-trimethoprim 160 mg tablet sulfamethoxazole 800 mg-trimethoprim 160 mg tablet completed sulfame thoxazole 800 MG / trimethoprim 160 MG Oral Tablet [place] ([facility]) Ondansetron 4 MG Disintegrating Oral Tab let ondansetron 4 mg disintegrating tablet ondansetron 4 mg disintegrating tablet completed ondansetron 4 MG Disintegrating Oral Tablet [place] ([facility]) Polyethylene Glycol 400 4 MG/ML / [...] propylene glycol 3 MG/ML Ophthalmic Solution [Systane] [place] ([facility]) valacyclovir 1000 MG Oral Tablet valacyc lovir 1 gram tablet TAKE ONE TABLET BY MOUTH TWICE A DAY FOR 3 DAYS valacyclovir 1 gram tablet TAKE ONE TABL ET BY MOUTH TWICE A DAY FOR 3 DAYS completed valacyclovir 1000 MG Oral Tablet [facility]) 12 HR Guaifenesin 600 MG Extended Releas e Oral Tablet [Mucinex] Mucinex 600 mg tablet, extended release Mucinex 600 mg tablet, extended release completed 12 HR guaifenesin 600 MG Extende d Release Oral Tablet [Mucinex] [place] ([facility]) Polyethylene Glycol 400 4 MG/ML / [...] propylene glycol 3 MG/ML Ophthalmic Solution [Systane] [place] ([facility]) Ondansetron 4 MG Disintegrating Oral Tab let ondansetron 4 mg disintegrating tablet ondansetron 4 mg disintegrating tablet completed ondansetron 4 MG Disintegrating Oral Tablet [place] ([facility]) Metoclopramide 5 MG Oral Tablet metoclopramide 5 mg ta blet metoclopramide 5 mg tablet completed metoclopramide 5 MG Oral Tablet [place] ([facility]) Metoclopramide 5 MG Oral Tablet metoclopramide 5 mg ta blet metoclopramide 5 mg tablet completed metoclopramide 5 MG Oral Tablet [place] ([facility]) Cimetidine 300 MG Oral Tablet cimetidine 300 mg tablet TAKE TWO TABLETS BY MOUTH TWICE A DAY cimetidine 300 mg tablet TAKE TWO TABLETS BY MOUTH TWICE A DAY completed cimetidine 300 MG Oral Tablet [place] ([facility]) quetiapine 25 MG Oral Tablet quetiapine 25 mg tablet quetiapine 25 mg tablet completed quetiapine 25 MG Oral Tablet [facility]) Clindamycin 10 MG/ML Topical Solution cl indamycin phosphate 1 % topical solution clindamycin phosphate 1 % topical solution completed clindamycin 10 MG/ML Topical Solution [facility]) Omeprazole 20 MG Delayed Release Oral Ca psule omeprazole 20 mg capsule,delayed release omeprazole 20 mg capsule,delayed release completed omeprazole 20 MG Delayed Release Oral Capsule [place] ([facility]) fluticasone furoate 0.1 MG/ACTUAT Dry Po wder Inhaler Arnuity Ellipta 100 mcg/actuation powder for inhalation INHALE 1 PUFF BY MOUTH ONCE DAILY Arnuity Ellipta 100 mcg/actuation powder for inhalation INHALE 1 PUFF BY MOUTH ONCE DAILY completed flutica sone furoate 0.1 MG/ACTUAT Dry Powder Inhaler [place] ([facility]) Prednisone 20 MG Oral Tablet prednisone 20 mg tablet TAKE ONE TABLET BY MOUTH TWICE A DAY prednisone 20 mg tablet TAKE ONE TABLET BY MOUTH TWICE A DAY completed prednisone 20 MG Ora l Tablet [place] ([facility]) fluticasone furoate 0.1 MG/ACTUAT Dry Po wder Inhaler Arnuity Ellipta 100 mcg/actuation powder for inhalation INHALE 1 PUFF BY MOUTH ONCE DAILY Arnuity Ellipta 100 mcg/actuation powder for inhalation INHALE 1 PUFF BY MOUTH ONCE DAILY completed flutica sone furoate 0.1 MG/ACTUAT Dry Powder Inhaler [place] ([facility]) 12 HR Guaifenesin 600 MG Extended Releas e Oral Tablet [Mucinex] Mucinex 600 mg tablet, extended release Mucinex 600 mg tablet, extended release completed 12 HR guaifenesin 600 MG Extende d Release Oral Tablet [Mucinex] [place] ([facility]) Potassium Chloride 20 MEQ Extended Relea se Oral Tablet potassium chloride ER 20 mEq tablet,extended release TAKE ONE TABLET BY MOUTH EVERY DAY potassium chloride ER 20 mEq tablet,extended release TAKE ONE TABLET BY MOUTH EVERY DAY completed potassium chlo ride 20 MEQ Extended Release Oral Tablet [place] ([facility]) quetiapine 50 MG Oral Tablet quetiapine 50 mg tablet quetiapine 50 mg tablet completed quetiapine 50 MG Oral Tablet [place] ([facility]) Cimetidine 300 MG Oral Tablet cimetidine 300 mg tablet TAKE TWO TABLETS BY MOUTH TWICE A DAY cimetidine 300 mg tablet TAKE TWO TABLETS BY MOUTH TWICE A DAY completed cimetidine 300 MG Oral Tablet [place] ([facility]) benzonatate 100 MG Oral Capsule benzonat ate 100 mg capsule TAKE ONE CAPSULE BY MOUTH THREE TIMES A DAY FOR COUGH benzonatate 100 mg capsule TAKE ONE CAPS ULE BY MOUTH THREE TIMES A DAY FOR COUGH com pleted benzonatate 100 MG Oral Capsule [place] ([facility]) Clindamycin 10 MG/ML Topical Solution cl indamycin phosphate 1 % topical solution clindamycin phosphate 1 % topical solution completed clindamycin 10 MG/ML Topical Solution [place] ([facility]) meloxicam 7.5 MG Oral Tablet meloxicam 7 .5 mg tablet TAKE ONE TABLET BY MOUTH EVERY DAY meloxicam 7.5 mg tablet TAKE ONE TABLET BY MOUTH EVERY DAY completed meloxicam 7.5 MG Oral Tablet [place] ([facility]) valacyclovir 1000 MG Oral Tablet valacyc lovir 1 gram tablet TAKE ONE TABLET BY MOUTH TWICE A DAY FOR 3 DAYS valacyclovir 1 gram tablet TAKE ONE TABL ET BY MOUTH TWICE A DAY FOR 3 DAYS completed valacyclovir 1000 MG Oral Tablet [place] ([facility]) Polyethylene Glycol 400 4 MG/ML / Propyl [...] propylene glycol 3 MG/ML Ophthalmic Solution [Systane] [place] ([facility]) Fluorouracil 50 MG/ML Topical Cream fluo rouracil 5 % topical cream APPLY TO WARTS AT NIGHT COVER WITH BANDAID fluorouracil 5 % topical cream APPLY TO WARTS AT NIGHT COVER WITH BANDAID complete d fluorouracil 50 MG/ML Topical Cream [place] ([facility]) cetirizine hydrochloride 10 MG Oral Tabl et cetirizine 10 mg tablet TAKE ONE TABLET BY MOUTH EVERY DAY cetirizine 10 mg tablet TAKE ONE TABLET BY MOUTH EVERY DAY completed cetirizine hydro chloride 10 MG Oral Tablet [place] ([facility]) Potassium Chloride 20 MEQ Extended Relea se Oral Tablet potassium chloride ER 20 mEq tablet,extended release TAKE ONE TABLET BY MOUTH EVERY DAY potassium chloride ER 20 mEq tablet,extended release TAKE ONE TABLET BY MOUTH EVERY DAY completed potassium chlo ride 20 MEQ Extended Release Oral Tablet [place] ([facility]) Sulfamethoxazole 800 MG / Trimethoprim 1 60 MG Oral Tablet sulfamethoxazole 800 mg-trimethoprim 160 mg tablet sulfamethoxazole 800 mg-trimethoprim 160 mg tablet completed sulfame thoxazole 800 MG / trimethoprim 160 MG Oral Tablet [place] ([facility]) doxycycline hyclate 100 MG Oral Capsule doxycycline hyclate 100 mg capsule TAKE ONE CAPSULE BY MOUTH TWO TIMES A DAY DIRECTED FOR 7 DAYS doxycycline hyclate 100 mg capsule TAKE ONE CAPSULE BY MOUTH TWO TIMES A DAY DIRECTED FOR 7 DAYS completed doxycycline hyclate 100 MG Oral Capsule [place] ([facility]) Doxycycline Monohydrate 100 MG Oral Caps ule doxycycline monohydrate 100 mg capsule doxycycline monohydrate 100 mg capsule completed doxycycline monohydrate 100 MG Oral Capsule [place] ([facility]) doxycycline hyclate 100 MG Oral Capsule doxycycline hyclate 100 mg capsule TAKE ONE CAPSULE BY MOUTH TWO TIMES A DAY DIRECTED FOR 7 DAYS doxycycline hyclate 100 mg capsule TAKE ONE CAPSULE BY MOUTH TWO TIMES A DAY DIRECTED FOR 7 DAYS completed doxycycline hyclate 100 MG Oral Capsule [place] ([facility]) Ondansetron 4 MG Disintegrating Oral Tab let ondansetron 4 mg disintegrating tablet ondansetron 4 mg disintegrating tablet completed ondansetron 4 MG Disintegrating Oral Tablet [place] ([facility]) Potassium Chloride 20 MEQ Extended Relea se Oral Tablet potassium chloride ER 20 mEq tablet,extended release TAKE ONE TABLET BY MOUTH EVERY DAY potassium chloride ER 20 mEq tablet,extended release TAKE ONE TABLET BY MOUTH EVERY DAY completed potassium chlo ride 20 MEQ Extended Release Oral Tablet [place] ([facility]) cetirizine hydrochloride 10 MG Oral Tabl et cetirizine 10 mg tablet TAKE ONE TABLET BY MOUTH EVERY DAY cetirizine 10 mg tablet TAKE ONE TABLET BY MOUTH EVERY DAY completed cetirizine hydro chloride 10 MG Oral Tablet [place] ([facility]) Metoclopramide 5 MG Oral Tablet metoclopramide 5 mg ta blet metoclopramide 5 mg tablet completed metoclopramide 5 MG Oral Tablet [place] ([facility]) imiquimod 50 MG/ML Topical Cream imiquim od 5 % topical cream packet APPLY TO AFFECTED AREA S ONCE DAILY NEEDED imiquimod 5 % topical cream packet APPLY TO AFFECTED AREA S ONCE DAILY NEEDED completed imiquimod 50 MG/ML Topical Cream [place] ([facility]) imiquimod 50 MG/ML Topical Cream imiquim od 5 % topical cream packet APPLY TO AFFECTED AREA S ONCE DAILY NEEDED imiquimod 5 % topical cream packet APPLY TO AFFECTED AREA S ONCE DAILY NEEDED completed imiquimod 50 MG/ML Topical Cream [place] ([facility]) Tab-A-Carlo 400 mcg tablet [id number] compl eted Tab-A-Carlo 400 mcg tablet [place] ([facility]) Albuterol 0.83 MG/ML Inhalant Solution a lbuterol sulfate 2.5 mg/3 mL (0.083 %) solution for nebulization INHALE ONE VIAL VIA NEBULIZER FOUR TIMES A DAY NEEDED albuterol sulfate 2.5 mg/3 mL (0.083 %) solution for nebulization INHALE ONE VIAL VIA NEBULIZER FOUR TIMES A DAY NEEDED completed albuterol 0.83 MG/ML Inhalation Solution [place] ([facility]) Sulfamethoxazole 800 MG / Trimethoprim 1 60 MG Oral Tablet sulfamethoxazole 800 mg-trimethoprim 160 mg tablet sulfamethoxazole 800 mg-trimethoprim 160 mg tablet completed sulfame thoxazole 800 MG / trimethoprim 160 MG Oral Tablet [place] ([facility]) imiquimod 50 MG/ML Topical Cream imiquim od 5 % topical cream packet APPLY TO AFFECTED AREA S ONCE DAILY NEEDED imiquimod 5 % topical cream packet APPLY TO AFFECTED AREA S ONCE DAILY NEEDED completed imiquimod 50 MG/ML Topical Cream [place] ([facility]) quetiapine 25 MG Oral Tablet quetiapine 25 mg tablet quetiapine 25 mg tablet completed quetiapine 25 MG Oral Tablet [place] ([facility]) Potassium Chloride 20 MEQ Extended Relea se Oral Tablet potassium chloride ER 20 mEq tablet,extended release TAKE ONE TABLET BY MOUTH EVERY DAY potassium chloride ER 20 mEq tablet,extended release TAKE ONE TABLET BY MOUTH EVERY DAY completed potassium chlo ride 20 MEQ Extended Release Oral Tablet [place] ([facility]) Prednisone 20 MG Oral Tablet prednisone 20 mg tablet TAKE ONE TABLET BY MOUTH TWICE A DAY prednisone 20 mg tablet TAKE ONE TABLET BY MOUTH TWICE A DAY completed prednisone 20 MG Ora l Tablet [place] ([facility]) Polyethylene Glycol 400 4 MG/ML / [...] propylene glycol 3 MG/ML Ophthalmic Solution [Systane] [place] ([facility]) Albuterol 0.83 MG/ML Inhalant Solution a lbuterol sulfate 2.5 mg/3 mL (0.083 %) solution for nebulization INHALE ONE VIAL VIA NEBULIZER FOUR TIMES A DAY NEEDED albuterol sulfate 2.5 mg/3 mL (0.083 %) solution for nebulization INHALE ONE VIAL VIA NEBULIZER FOUR TIMES A DAY NEEDED completed albuterol 0.83 MG/ML Inhalation Solution [facility]) Albuterol 0.83 MG/ML Inhalant Solution a lbuterol sulfate 2.5 mg/3 mL (0.083 %) solution for nebulization INHALE ONE VIAL VIA NEBULIZER FOUR TIMES A DAY NEEDED albuterol sulfate 2.5 mg/3 mL (0.083 %) solution for nebulization INHALE ONE VIAL VIA NEBULIZER FOUR TIMES A DAY NEEDED completed albuterol 0.83 MG/ML Inhalation Solution [facility]) Albuterol 0.83 MG/ML Inhalant Solution a lbuterol sulfate 2.5 mg/3 mL (0.083 %) solution for nebulization INHALE ONE VIAL VIA NEBULIZER FOUR TIMES A DAY NEEDED albuterol sulfate 2.5 mg/3 mL (0.083 %) solution for nebulization INHALE ONE VIAL VIA NEBULIZER FOUR TIMES A DAY NEEDED completed albuterol 0.83 MG/ML Inhalation Solution [place] ([facility]) Metoclopramide 5 MG Oral Tablet metoclopramide 5 mg ta blet metoclopramide 5 mg tablet completed metoclopramide 5 MG Oral Tablet [facility]) Sulfamethoxazole 800 MG / Trimethoprim 1 60 MG Oral Tablet sulfamethoxazole 800 mg-trimethoprim 160 mg tablet sulfamethoxazole 800 mg-trimethoprim 160 mg tablet completed sulfame thoxazole 800 MG / trimethoprim 160 MG Oral Tablet [facility]) Omeprazole 40 MG Delayed Release Oral Ca psule omeprazole 40 mg capsule,delayed release TAKE ONE CAPSULE BY MOUTH EVERY DAY omeprazole 40 mg capsule,delayed release TAKE ONE CAPSULE BY MOUTH EVERY DAY completed omeprazole 40 MG Delayed Release Oral Capsule [place] ([facility]) Albuterol 0.83 MG/ML Inhalant Solution a lbuterol sulfate 2.5 mg/3 mL (0.083 %) solution for nebulization INHALE ONE VIAL VIA NEBULIZER FOUR TIMES A DAY NEEDED albuterol sulfate 2.5 mg/3 mL (0.083 %) solution for nebulization INHALE ONE VIAL VIA NEBULIZER FOUR TIMES A DAY NEEDED completed albuterol 0.83 MG/ML Inhalation Solution [place] ([facility]) doxycycline hyclate 100 MG Oral Capsule doxycycline (V IBRAMYCIN) 100 MG capsule doxycycline (VIBRAMYCIN) 100 MG capsule 100 mg Oral completed Take 100 mg by mouth every 12 (twelve) hours. [facility] Take 100 mg by mouth every 12 (twelve) h ours. Omeprazole 20 MG Delayed Release Oral Ca psule omeprazole 20 mg capsule,delayed release omeprazole 20 mg capsule,delayed release completed omeprazole 20 MG Delayed Release Oral Capsule [place] ([facility]) Omeprazole 20 MG Delayed Release Oral Ca psule omeprazole 20 mg capsule,delayed release omeprazole 20 mg capsule,delayed release completed omeprazole 20 MG Delayed Release Oral Capsule [place] ([facility]) 12 HR Guaifenesin 600 MG Extended Releas e Oral Tablet [Mucinex] Mucinex 600 mg tablet, extended release Mucinex 600 mg tablet, extended release completed 12 HR guaifenesin 600 MG Extende d Release Oral Tablet [Mucinex] [place] ([facility]) Fluorouracil 50 MG/ML Topical Cream fluo rouracil 5 % topical cream APPLY TO WARTS AT NIGHT COVER WITH BANDAID fluorouracil 5 % topical cream APPLY TO WARTS AT NIGHT COVER WITH BANDAID complete d fluorouracil 50 MG/ML Topical Cream [place] ([facility]) valacyclovir 1000 MG Oral Tablet valacyc lovir 1 gram tablet TAKE ONE TABLET BY MOUTH TWICE A DAY FOR 3 DAYS valacyclovir 1 gram tablet TAKE ONE TABL ET BY MOUTH TWICE A DAY FOR 3 DAYS completed valacyclovir 1000 MG Oral Tablet [place] ([facility]) Prednisone 20 MG Oral Tablet prednisone 20 mg tablet TAKE ONE TABLET BY MOUTH TWICE A DAY prednisone 20 mg tablet TAKE ONE TABLET BY MOUTH TWICE A DAY completed prednisone 20 MG Ora l Tablet [place] ([facility]) doxycycline hyclate 100 MG Oral Capsule doxycycline hyclate 100 mg capsule TAKE ONE CAPSULE BY MOUTH TWO TIMES A DAY DIRECTED FOR 7 DAYS doxycycline hyclate 100 mg capsule TAKE ONE CAPSULE BY MOUTH TWO TIMES A DAY DIRECTED FOR 7 DAYS completed doxycycline hyclate 100 MG Oral Capsule [place] ([facility]) Ondansetron 4 MG Disintegrating Oral Tab let ondansetron 4 mg disintegrating tablet ondansetron 4 mg disintegrating tablet completed ondansetron 4 MG Disintegrating Oral Tablet [place] ([facility]) imiquimod 50 MG/ML Topical Cream imiquim od 5 % topical cream packet APPLY TO AFFECTED AREA S ONCE DAILY NEEDED imiquimod 5 % topical cream packet APPLY TO AFFECTED AREA S ONCE DAILY NEEDED completed imiquimod 50 MG/ML Topical Cream [place] [facility]) cetirizine hydrochloride 10 MG Oral Tabl et cetirizine 10 mg tablet TAKE ONE TABLET BY MOUTH EVERY DAY cetirizine 10 mg tablet TAKE ONE TABLET BY MOUTH EVERY DAY completed cetirizine hydro chloride 10 MG Oral Tablet [place] ([facility]) quetiapine 50 MG Oral Tablet quetiapine 50 mg tablet quetiapine 50 mg tablet completed quetiapine 50 MG Oral Tablet [place] ([facility]) Sulfamethoxazole 800 MG / Trimethoprim 1 60 MG Oral Tablet sulfamethoxazole 800 mg-trimethoprim 160 mg tablet sulfamethoxazole 800 mg-trimethoprim 160 mg tablet completed sulfame thoxazole 800 MG / trimethoprim 160 MG Oral Tablet [place] ([facility]) Prednisone 20 MG Oral Tablet prednisone 20 mg tablet TAKE ONE TABLET BY MOUTH TWICE A DAY prednisone 20 mg tablet TAKE ONE TABLET BY MOUTH TWICE A DAY completed prednisone 20 MG Ora l Tablet [place] [facility]) cetirizine hydrochloride 10 MG Oral Tabl et cetirizine 10 mg tablet TAKE ONE TABLET BY MOUTH EVERY DAY cetirizine 10 mg tablet TAKE ONE TABLET BY MOUTH EVERY DAY completed cetirizine hydro chloride 10 MG Oral Tablet [place] ([facility]) Sulfamethoxazole 800 MG / Trimethoprim 1 60 MG Oral Tablet sulfamethoxazole 800 mg-trimethoprim 160 mg tablet sulfamethoxazole 800 mg-trimethoprim 160 mg tablet completed sulfame thoxazole 800 MG / trimethoprim 160 MG Oral Tablet [place] ([facility]) Cimetidine 300 MG Oral Tablet cimetidine 300 mg tablet TAKE TWO TABLETS BY MOUTH TWICE A DAY cimetidine 300 mg tablet TAKE TWO TABLETS BY MOUTH TWICE A DAY completed cimetidine 300 MG Oral Tablet [place] ([facility]) Hydroxyzine Hydrochloride 50 MG Oral Tablet hydroxyzin e HCl 50 mg tablet hydroxyzine HCl 50 mg tablet completed hydroxyzine hydrochloride 50 MG Oral Tablet [place] ([facility]) quetiapine 25 MG Oral Tablet quetiapine 25 mg tablet quetiapine 25 mg tablet completed quetiapine 25 MG Oral Tablet [place] ([facility]) Hydroxyzine Hydrochloride 50 MG Oral Tablet hydroxyzin e HCl 50 mg tablet hydroxyzine HCl 50 mg tablet completed hydroxyzine hydrochloride 50 MG Oral Tablet [place] ([facility]) Tab-A-Carlo 400 mcg tablet [id number] compl eted Tab-A-Carlo 400 mcg tablet [place] ([facility]) fluticasone furoate 0.1 MG/ACTUAT Dry Po wder Inhaler Arnuity Ellipta 100 mcg/actuation powder for inhalation INHALE 1 PUFF BY MOUTH ONCE DAILY Arnuity Ellipta 100 mcg/actuation powder for inhalation INHALE 1 PUFF BY MOUTH ONCE DAILY completed flutica sone furoate 0.1 MG/ACTUAT Dry Powder Inhaler [place] ([facility]) Metoclopramide 5 MG Oral Tablet metoclopramide 5 mg ta blet metoclopramide 5 mg tablet completed metoclopramide 5 MG Oral Tablet [place] ([facility]) 12 HR Guaifenesin 600 MG Extended Releas e Oral Tablet [Mucinex] Mucinex 600 mg tablet, extended release Mucinex 600 mg tablet, extended release completed 12 HR guaifenesin 600 MG Extende d Release Oral Tablet [Mucinex] [place] ([facility]) Clindamycin 10 MG/ML Topical Solution cl indamycin phosphate 1 % topical solution clindamycin phosphate 1 % topical solution completed clindamycin 10 MG/ML Topical Solution [place] ([facility]) meloxicam 7.5 MG Oral Tablet meloxicam 7 .5 mg tablet TAKE ONE TABLET BY MOUTH EVERY DAY meloxicam 7.5 mg tablet TAKE ONE TABLET BY MOUTH EVERY DAY completed meloxicam 7.5 MG Oral Tablet [place] ([facility]) Albuterol 0.83 MG/ML Inhalant Solution a lbuterol sulfate 2.5 mg/3 mL (0.083 %) solution for nebulization INHALE ONE VIAL VIA NEBULIZER FOUR TIMES A DAY NEEDED albuterol sulfate 2.5 mg/3 mL (0.083 %) solution for nebulization INHALE ONE VIAL VIA NEBULIZER FOUR TIMES A DAY NEEDED completed albuterol 0.83 MG/ML Inhalation Solution [facility]) Azithromycin 250 MG Oral Tablet azithromycin 250 mg ta blet azithromycin 250 mg tablet completed azithromycin 25 0 MG Oral Tablet [facility]) quetiapine 50 MG Oral Tablet quetiapine 50 mg tablet quetiapine 50 mg tablet completed quetiapine 50 MG Oral Tablet [facility]) Polyethylene Glycol 400 4 MG/ML / Propyl [...] propylene glycol 3 MG/ML Ophthalmic Solution [Systane] [facility]) Azithromycin 250 MG Oral Tablet azithromycin 250 mg ta blet azithromycin 250 mg tablet completed azithromycin 25 0 MG Oral Tablet [facility]) quetiapine 25 MG Oral Tablet quetiapine 25 mg tablet quetiapine 25 mg tablet completed quetiapine 25 MG Oral Tablet [place] ([facility]) chlorhexidine gluconate 1.2 MG/ML Mouthw tabitha chlorhexidine gluconate 0.12 % mouthwash chlorhexidine gluconate 0.12 % mouthwash completed chlorhexidine gluconate 1.2 MG/ML Mouthwash [place] ([facility]) Potassium Chloride 20 MEQ Extended Relea se Oral Tablet potassium chloride ER 20 mEq tablet,extended release TAKE ONE TABLET BY MOUTH EVERY DAY potassium chloride ER 20 mEq tablet,extended release TAKE ONE TABLET BY MOUTH EVERY DAY completed potassium chlo ride 20 MEQ Extended Release Oral Tablet [facility]) quetiapine 25 MG Oral Tablet quetiapine 25 mg tablet quetiapine 25 mg tablet completed quetiapine 25 MG Oral Tablet [facility] ([facility]) benzonatate 100 MG Oral Capsule benzonat ate 100 mg capsule TAKE ONE CAPSULE BY MOUTH THREE TIMES A DAY FOR COUGH benzonatate 100 mg capsule TAKE ONE CAPS ULE BY MOUTH THREE TIMES A DAY FOR COUGH com pleted benzonatate 100 MG Oral Capsule [place] ([facility]) Tab-A-Carlo 400 mcg tablet [id number] compl eted Tab-A-Carlo 400 mcg tablet [place] ([facility]) Clindamycin 10 MG/ML Topical Solution cl indamycin phosphate 1 % topical solution clindamycin phosphate 1 % topical solution completed clindamycin 10 MG/ML Topical Solution [place] ([facility]) benzonatate 100 MG Oral Capsule benzonat ate 100 mg capsule TAKE ONE CAPSULE BY MOUTH THREE TIMES A DAY FOR COUGH benzonatate 100 mg capsule TAKE ONE CAPS ULE BY MOUTH THREE TIMES A DAY FOR COUGH com pleted benzonatate 100 MG Oral Capsule [place] ([facility]) Potassium Chloride 20 MEQ Extended Relea se Oral Tablet potassium chloride ER 20 mEq tablet,extended release TAKE ONE TABLET BY MOUTH EVERY DAY potassium chloride ER 20 mEq tablet,extended release TAKE ONE TABLET BY MOUTH EVERY DAY completed potassium chlo ride 20 MEQ Extended Release Oral Tablet [place] ([facility]) valacyclovir 1000 MG Oral Tablet valacyc lovir 1 gram tablet TAKE ONE TABLET BY MOUTH TWICE A DAY FOR 3 DAYS valacyclovir 1 gram tablet TAKE ONE TABL ET BY MOUTH TWICE A DAY FOR 3 DAYS completed valacyclovir 1000 MG Oral Tablet [place] ([facility]) doxycycline hyclate 100 MG Oral Capsule doxycycline hyclate 100 mg capsule TAKE ONE CAPSULE BY MOUTH TWO TIMES A DAY DIRECTED FOR 7 DAYS doxycycline hyclate 100 mg capsule TAKE ONE CAPSULE BY MOUTH TWO TIMES A DAY DIRECTED FOR 7 DAYS completed doxycycline hyclate 100 MG Oral Capsule [facility] ([facility]) valacyclovir 1000 MG Oral Tablet valacyc lovir 1 gram tablet TAKE ONE TABLET BY MOUTH TWICE A DAY FOR 3 DAYS valacyclovir 1 gram tablet TAKE ONE TABL ET BY MOUTH TWICE A DAY FOR 3 DAYS completed valacyclovir 1000 MG Oral Tablet [place] ([facility]) quetiapine 50 MG Oral Tablet quetiapine 50 mg tablet quetiapine 50 mg tablet completed quetiapine 50 MG Oral Tablet [place] ([facility]) cetirizine hydrochloride 10 MG Oral Tabl et cetirizine 10 mg tablet TAKE ONE TABLET BY MOUTH EVERY DAY cetirizine 10 mg tablet TAKE ONE TABLET BY MOUTH EVERY DAY completed cetirizine hydro chloride 10 MG Oral Tablet [place] ([facility]) Doxycycline Monohydrate 100 MG Oral Caps ule doxycycline monohydrate 100 mg capsule doxycycline monohydrate 100 mg capsule completed doxycycline monohydrate 100 MG Oral Capsule [place] ([facility]) Polyethylene Glycol 400 4 MG/ML / [...] propylene glycol 3 MG/ML Ophthalmic Solution [Systane] [place] ([facility]) Metoclopramide 5 MG Oral Tablet metoclopramide 5 mg ta blet metoclopramide 5 mg tablet completed metoclopramide 5 MG Oral Tablet [facility]) valacyclovir 1000 MG Oral Tablet valacyc lovir 1 gram tablet TAKE ONE TABLET BY MOUTH TWICE A DAY FOR 3 DAYS valacyclovir 1 gram tablet TAKE ONE TABL ET BY MOUTH TWICE A DAY FOR 3 DAYS completed valacyclovir 1000 MG Oral Tablet [facility] er) chlorhexidine gluconate 1.2 MG/ML Mouthw tabitha chlorhexidine gluconate 0.12 % mouthwash chlorhexidine gluconate 0.12 % mouthwash completed chlorhexidine gluconate 1.2 MG/ML Mouthwash [facility]) Azithromycin 250 MG Oral Tablet azithromycin 250 mg ta blet azithromycin 250 mg tablet completed azithromycin 25 0 MG Oral Tablet [facility]) Clindamycin 10 MG/ML Topical Solution cl indamycin phosphate 1 % topical solution clindamycin phosphate 1 % topical solution completed clindamycin 10 MG/ML Topical Solution [facility]) benzonatate 100 MG Oral Capsule benzonat ate 100 mg capsule TAKE ONE CAPSULE BY MOUTH THREE TIMES A DAY FOR COUGH benzonatate 100 mg capsule TAKE ONE CAPS ULE BY MOUTH THREE TIMES A DAY FOR COUGH com pleted benzonatate 100 MG Oral Capsule [place] ([facility]) Tab-A-Carlo 400 mcg tablet [id number] compl eted Tab-A-Carlo 400 mcg tablet [place] ([facility]) doxycycline hyclate 100 MG Oral Capsule doxycycline hyclate 100 mg capsule TAKE ONE CAPSULE BY MOUTH TWO TIMES A DAY DIRECTED FOR 7 DAYS doxycycline hyclate 100 mg capsule TAKE ONE CAPSULE BY MOUTH TWO TIMES A DAY DIRECTED FOR 7 DAYS completed doxycycline hyclate 100 MG Oral Capsule [place] ([facility]) imiquimod 50 MG/ML Topical Cream imiquim od 5 % topical cream packet APPLY TO AFFECTED AREA S ONCE DAILY NEEDED imiquimod 5 % topical cream packet APPLY TO AFFECTED AREA S ONCE DAILY NEEDED completed imiquimod 50 MG/ML Topical Cream [facility] ([facility]) Ondansetron 4 MG Disintegrating Oral Tab let ondansetron 4 mg disintegrating tablet ondansetron 4 mg disintegrating tablet completed ondansetron 4 MG Disintegrating Oral Tablet [place] ([facility]) Sulfamethoxazole 800 MG / Trimethoprim 1 60 MG Oral Tablet sulfamethoxazole 800 mg-trimethoprim 160 mg tablet sulfamethoxazole 800 mg-trimethoprim 160 mg tablet completed sulfame thoxazole 800 MG / trimethoprim 160 MG Oral Tablet [place] ([facility]) Metoclopramide 5 MG Oral Tablet metoclopramide 5 mg ta blet metoclopramide 5 mg tablet completed metoclopramide 5 MG Oral Tablet [place] ([facility]) Hydroxyzine Hydrochloride 50 MG Oral Tablet hydroxyzin e HCl 50 mg tablet hydroxyzine HCl 50 mg tablet completed hydroxyzine hydrochloride 50 MG Oral Tablet [place] ([facility]) doxycycline hyclate 100 MG Oral Capsule doxycycline hyclate 100 mg capsule TAKE ONE CAPSULE BY MOUTH TWO TIMES A DAY DIRECTED FOR 7 DAYS doxycycline hyclate 100 mg capsule TAKE ONE CAPSULE BY MOUTH TWO TIMES A DAY DIRECTED FOR 7 DAYS completed doxycycline hyclate 100 MG Oral Capsule [facility] ([facility]) Clindamycin 10 MG/ML Topical Solution cl indamycin phosphate 1 % topical solution clindamycin phosphate 1 % topical solution completed clindamycin 10 MG/ML Topical Solution [place] ([facility]) Tab-A-Carlo 400 mcg tablet [id number] compl eted Tab-A-Carlo 400 mcg tablet [facility]) quetiapine 50 MG Oral Tablet quetiapine 50 mg tablet quetiapine 50 mg tablet completed quetiapine 50 MG Oral Tablet [place] ([facility]) Prednisone 20 MG Oral Tablet prednisone 20 mg tablet TAKE ONE TABLET BY MOUTH TWICE A DAY prednisone 20 mg tablet TAKE ONE TABLET BY MOUTH TWICE A DAY completed prednisone 20 MG Ora l Tablet [facility]) Metoclopramide 5 MG Oral Tablet metoclopramide 5 mg ta blet metoclopramide 5 mg tablet completed metoclopramide 5 MG Oral Tablet [place] ([facility]) valacyclovir 1000 MG Oral Tablet valacyc lovir 1 gram tablet TAKE ONE TABLET BY MOUTH TWICE A DAY FOR 3 DAYS valacyclovir 1 gram tablet TAKE ONE TABL ET BY MOUTH TWICE A DAY FOR 3 DAYS completed valacyclovir 1000 MG Oral Tablet [place] ([facility]) cetirizine hydrochloride 10 MG Oral Tabl et cetirizine 10 mg tablet TAKE ONE TABLET BY MOUTH EVERY DAY cetirizine 10 mg tablet TAKE ONE TABLET BY MOUTH EVERY DAY completed cetirizine hydro chloride 10 MG Oral Tablet [facility]) quetiapine 50 MG Oral Tablet quetiapine 50 mg tablet quetiapine 50 mg tablet completed quetiapine 50 MG Oral Tablet [facility]) Clindamycin 10 MG/ML Topical Solution cl indamycin phosphate 1 % topical solution clindamycin phosphate 1 % topical solution completed clindamycin 10 MG/ML Topical Solution [place] ([facility]) Polyethylene Glycol 400 4 MG/ML / [...] propylene glycol 3 MG/ML Ophthalmic Solution [Systane] [facility]) Potassium Chloride 20 MEQ Extended Relea se Oral Tablet potassium chloride ER 20 mEq tablet,extended release TAKE ONE TABLET BY MOUTH EVERY DAY potassium chloride ER 20 mEq tablet,extended release TAKE ONE TABLET BY MOUTH EVERY DAY completed potassium chlo ride 20 MEQ Extended Release Oral Tablet [facility] ([facility]) cetirizine hydrochloride 10 MG Oral Tabl et cetirizine 10 mg tablet TAKE ONE TABLET BY MOUTH EVERY DAY cetirizine 10 mg tablet TAKE ONE TABLET BY MOUTH EVERY DAY completed cetirizine hydro chloride 10 MG Oral Tablet [place] ([facility]) cetirizine hydrochloride 10 MG Oral Tabl et cetirizine 10 mg tablet TAKE ONE TABLET BY MOUTH EVERY DAY cetirizine 10 mg tablet TAKE ONE TABLET BY MOUTH EVERY DAY completed cetirizine hydro chloride 10 MG Oral Tablet [place] ([facility]) meloxicam 7.5 MG Oral Tablet meloxicam 7 .5 mg tablet TAKE ONE TABLET BY MOUTH EVERY DAY meloxicam 7.5 mg tablet TAKE ONE TABLET BY MOUTH EVERY DAY completed meloxicam 7.5 MG Oral Tablet [facility] ([facility]) Hydroxyzine Hydrochloride 50 MG Oral Tablet hydroxyzin e HCl 50 mg tablet hydroxyzine HCl 50 mg tablet completed hydroxyzine hydrochloride 50 MG Oral Tablet [place] ([facility]) Clindamycin 10 MG/ML Topical Solution cl indamycin phosphate 1 % topical solution clindamycin phosphate 1 % topical solution completed clindamycin 10 MG/ML Topical Solution [facility] ([facility]) benzonatate 100 MG Oral Capsule benzonat ate 100 mg capsule TAKE ONE CAPSULE BY MOUTH THREE TIMES A DAY FOR COUGH benzonatate 100 mg capsule TAKE ONE CAPS ULE BY MOUTH THREE TIMES A DAY FOR COUGH com pleted benzonatate 100 MG Oral Capsule [place] ([facility]) cetirizine hydrochloride 10 MG Oral Tabl et cetirizine 10 mg tablet TAKE ONE TABLET BY MOUTH EVERY DAY cetirizine 10 mg tablet TAKE ONE TABLET BY MOUTH EVERY DAY completed cetirizine hydro chloride 10 MG Oral Tablet [facility] ([facility]) Polyethylene Glycol 400 4 MG/ML / [...] propylene glycol 3 MG/ML Ophthalmic Solution [Systane] [place] ([facility]) Clindamycin 10 MG/ML Topical Solution cl indamycin phosphate 1 % topical solution clindamycin phosphate 1 % topical solution completed clindamycin 10 MG/ML Topical Solution [place] ([facility]) Prednisone 20 MG Oral Tablet prednisone 20 mg tablet TAKE ONE TABLET BY MOUTH TWICE A DAY prednisone 20 mg tablet TAKE ONE TABLET BY MOUTH TWICE A DAY completed prednisone 20 MG Ora l Tablet [place] ([facility]) benzonatate 100 MG Oral Capsule benzonat ate 100 mg capsule TAKE ONE CAPSULE BY MOUTH THREE TIMES A DAY FOR COUGH benzonatate 100 mg capsule TAKE ONE CAPS ULE BY MOUTH THREE TIMES A DAY FOR COUGH com pleted benzonatate 100 MG Oral Capsule [place] ([facility]) Metoclopramide 5 MG Oral Tablet metoclopramide 5 mg ta blet metoclopramide 5 mg tablet completed metoclopramide 5 MG Oral Tablet [place] ([facility]) Cimetidine 300 MG Oral Tablet cimetidine 300 mg tablet TAKE TWO TABLETS BY MOUTH TWICE A DAY cimetidine 300 mg tablet TAKE TWO TABLETS BY MOUTH TWICE A DAY completed cimetidine 300 MG Oral Tablet [place] ([facility]) valacyclovir 1000 MG Oral Tablet valacyc lovir 1 gram tablet TAKE ONE TABLET BY MOUTH TWICE A DAY FOR 3 DAYS valacyclovir 1 gram tablet TAKE ONE TABL ET BY MOUTH TWICE A DAY FOR 3 DAYS completed valacyclovir 1000 MG Oral Tablet [place] ([facility]) Metoclopramide 5 MG Oral Tablet metoclopramide 5 mg ta blet metoclopramide 5 mg tablet completed metoclopramide 5 MG Oral Tablet [place] ([facility]) Hydroxyzine Hydrochloride 50 MG Oral Tablet hydroxyzin e HCl 50 mg tablet hydroxyzine HCl 50 mg tablet completed hydroxyzine hydrochloride 50 MG Oral Tablet [place] ([facility]) Albuterol 0.83 MG/ML Inhalant Solution a lbuterol sulfate 2.5 mg/3 mL (0.083 %) solution for nebulization INHALE ONE VIAL VIA NEBULIZER FOUR TIMES A DAY NEEDED albuterol sulfate 2.5 mg/3 mL (0.083 %) solution for nebulization INHALE ONE VIAL VIA NEBULIZER FOUR TIMES A DAY NEEDED completed albuterol 0.83 MG/ML Inhalation Solution [place] ([facility]) Doxycycline Monohydrate 100 MG Oral Caps ule doxycycline monohydrate 100 mg capsule doxycycline monohydrate 100 mg capsule completed doxycycline monohydrate 100 MG Oral Capsule [place] ([facility]) Potassium Chloride 20 MEQ Extended Relea se Oral Tablet potassium chloride ER 20 mEq tablet,extended release TAKE ONE TABLET BY MOUTH EVERY DAY potassium chloride ER 20 mEq tablet,extended release TAKE ONE TABLET BY MOUTH EVERY DAY completed potassium chlo ride 20 MEQ Extended Release Oral Tablet [place] ([facility]) fluticasone furoate 0.1 MG/ACTUAT Dry Po wder Inhaler Arnuity Ellipta 100 mcg/actuation powder for inhalation INHALE 1 PUFF BY MOUTH ONCE DAILY Arnuity Ellipta 100 mcg/actuation powder for inhalation INHALE 1 PUFF BY MOUTH ONCE DAILY completed flutica sone furoate 0.1 MG/ACTUAT Dry Powder Inhaler [facility] ([facility]) Albuterol 0.83 MG/ML Inhalant Solution a lbuterol sulfate 2.5 mg/3 mL (0.083 %) solution for nebulization INHALE ONE VIAL VIA NEBULIZER FOUR TIMES A DAY NEEDED albuterol sulfate 2.5 mg/3 mL (0.083 %) solution for nebulization INHALE ONE VIAL VIA NEBULIZER FOUR TIMES A DAY NEEDED completed albuterol 0.83 MG/ML Inhalation Solution [place] ([facility]) Docusate Sodium 100 MG Oral Capsule docu sate sodium 100 mg capsule TAKE ONE CAPSULE BY MOUTH EVERY DAY docusate sodium 100 mg capsule TAKE ONE CAPSULE BY MOUTH EVERY DAY completed docusa te sodium 100 MG Oral Capsule [place] ([facility]) Doxycycline Monohydrate 100 MG Oral Caps ule doxycycline monohydrate 100 mg capsule doxycycline monohydrate 100 mg capsule completed doxycycline monohydrate 100 MG Oral Capsule [place] ([facility]) fluticasone furoate 0.1 MG/ACTUAT Dry Po wder Inhaler Arnuity Ellipta 100 mcg/actuation powder for inhalation INHALE 1 PUFF BY MOUTH ONCE DAILY Arnuity Ellipta 100 mcg/actuation powder for inhalation INHALE 1 PUFF BY MOUTH ONCE DAILY completed flutica sone furoate 0.1 MG/ACTUAT Dry Powder Inhaler [facility] ([facility]) Azithromycin 250 MG Oral Tablet azithromycin 250 mg ta blet azithromycin 250 mg tablet completed azithromycin 25 0 MG Oral Tablet [facility] ([facility]) Prednisone 20 MG Oral Tablet prednisone 20 mg tablet TAKE 2 TABLETS BY MOUTH EVERY DAY prednisone 20 mg tablet TAKE 2 TABLETS BY MOUTH EVERY DAY completed prednisone 20 MG Oral Tablet ATH [place] ([facility]) Fluorouracil 50 MG/ML Topical Cream fluo rouracil 5 % topical cream APPLY TO WARTS AT NIGHT COVER WITH BANDAID fluorouracil 5 % topical cream APPLY TO WARTS AT NIGHT COVER WITH BANDAID complete d fluorouracil 50 MG/ML Topical Cream [place] ([facility]) Cimetidine 300 MG Oral Tablet cimetidine 300 mg tablet TAKE TWO TABLETS BY MOUTH TWICE A DAY cimetidine 300 mg tablet TAKE TWO TABLETS BY MOUTH TWICE A DAY completed cimetidine 300 MG Oral Tablet [facility] ([facility]) fluticasone furoate 0.1 MG/ACTUAT Dry Po wder Inhaler Arnuity Ellipta 100 mcg/actuation powder for inhalation INHALE 1 PUFF BY MOUTH ONCE DAILY Arnuity Ellipta 100 mcg/actuation powder for inhalation INHALE 1 PUFF BY MOUTH ONCE DAILY completed flutica sone furoate 0.1 MG/ACTUAT Dry Powder Inhaler [facility] ([facility]) Metoclopramide 5 MG Oral Tablet metoclopramide 5 mg ta blet metoclopramide 5 mg tablet completed metoclopramide 5 MG Oral Tablet [place] ([facility]) Metoclopramide 5 MG Oral Tablet metoclopramide 5 mg ta blet metoclopramide 5 mg tablet completed metoclopramide 5 MG Oral Tablet [place] ([facility]) Cimetidine 300 MG Oral Tablet cimetidine 300 mg tablet TAKE TWO TABLETS BY MOUTH TWICE A DAY cimetidine 300 mg tablet TAKE TWO TABLETS BY MOUTH TWICE A DAY completed cimetidine 300 MG Oral Tablet [facility] ([facility]) imiquimod 50 MG/ML Topical Cream imiquim od 5 % topical cream packet APPLY TO AFFECTED AREA S ONCE DAILY NEEDED imiquimod 5 % topical cream packet APPLY TO AFFECTED AREA S ONCE DAILY NEEDED completed imiquimod 50 MG/ML Topical Cream [place] ([facility]) Clindamycin 10 MG/ML Topical Solution cl indamycin phosphate 1 % topical solution clindamycin phosphate 1 % topical solution completed clindamycin 10 MG/ML Topical Solution [place] ([facility]) 12 HR Guaifenesin 600 MG Extended Releas e Oral Tablet [Mucinex] Mucinex 600 mg tablet, extended release Mucinex 600 mg tablet, extended release completed 12 HR guaifenesin 600 MG Extende d Release Oral Tablet [Mucinex] [place] ([facility]) Prednisone 20 MG Oral Tablet prednisone 20 mg tablet TAKE ONE TABLET BY MOUTH TWICE A DAY prednisone 20 mg tablet TAKE ONE TABLET BY MOUTH TWICE A DAY completed prednisone 20 MG Ora l Tablet [place] ([facility]) Metoclopramide 5 MG Oral Tablet metoclopramide 5 mg ta blet metoclopramide 5 mg tablet completed metoclopramide 5 MG Oral Tablet [place] ([facility]) valacyclovir 1000 MG Oral Tablet valacyc lovir 1 gram tablet TAKE ONE TABLET BY MOUTH TWICE A DAY FOR 3 DAYS valacyclovir 1 gram tablet TAKE ONE TABL ET BY MOUTH TWICE A DAY FOR 3 DAYS completed valacyclovir 1000 MG Oral Tablet [place] ([facility]) chlorhexidine gluconate 1.2 MG/ML Mouthw tabitha chlorhexidine gluconate 0.12 % mouthwash chlorhexidine gluconate 0.12 % mouthwash completed chlorhexidine gluconate 1.2 MG/ML Mouthwash [place] ([facility]) meloxicam 7.5 MG Oral Tablet meloxicam 7 .5 mg tablet TAKE ONE TABLET BY MOUTH EVERY DAY meloxicam 7.5 mg tablet TAKE ONE TABLET BY MOUTH EVERY DAY completed meloxicam 7.5 MG Oral Tablet [place] ([facility]) chlorhexidine gluconate 1.2 MG/ML Mouthw tabitha chlorhexidine gluconate 0.12 % mouthwash chlorhexidine gluconate 0.12 % mouthwash completed chlorhexidine gluconate 1.2 MG/ML Mouthwash [place] ([facility]) Sulfamethoxazole 800 MG / Trimethoprim 1 60 MG Oral Tablet sulfamethoxazole 800 mg-trimethoprim 160 mg tablet sulfamethoxazole 800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 leukocytes in Blood by Automated count 6.2 % 0-13 Monocytes [facility] ([facility]) Basophils [#/volume] in Blood by Automated count 42 cells/uL 0-200 Absolute Basophils [facility] ([facility]) Basophils/100 leukocytes in Blood by Automated count 0.8 % 0-2 Basophils [facility] ([facility]) ID Date Data Source [id number] 11/13/2020 12:00:00 AM EDT [facility] ([facility]) Name Value Range Interpretation Code Description Data Amy rce(s) Supporting Document(s) Leukocytes [#/volume] in Blood by Automated count 5.3 thousand/uL 3 .8-10.8 White Blood Cell Count [facility] ([facility]) Erythrocytes [#/volume] in Blood by Automated count 5.60 million/uL 4.20-5.80 Red Blood Cell Count [facility] ([facility]) Hemoglobin [Mass/volume] in Blood 15.4 g/dL 13.2-17.1 He moglobin [facility] ([facility]) Erythrocyte mean corpuscular volume [Entitic volume] by Auto mated count 77.5 fL 80.0-100.0 Below low normal Mcv [facility] ([facility]) Erythrocyte mean corpuscular hemoglobin [Entitic mass] by Automated count 27.5 pg 27.0-33.0 Mch [facility] ([facility]) Hematocrit [Volume Fraction] of Blood by Automated count 43.4 % 38.5-50.0 Hematocrit [facility] ([facility]) Erythrocyte mean corpuscular hemoglobin concentration [Mass/volume] by Automated count 35.5 g/dL 32.0-36.0 Mchc [facility] ([facility]) Erythrocyte distribution width [Ratio] by Automated count 13.8 % 11.0-15.0 Rdw [facility] ([facility]) Neutrophils [#/volume] in Blood by Automated count 3731 cells/uL 15 00-7800 Absolute Neutrophils [facility] ([facility]) Platelets [#/volume] in Blood by Automated count 107 thousand/uL 140-400 Below low normal Platelet Count [facility] ([facility]) Lymphocytes [#/volume] in Blood by Automated count 1018 cells/uL 85 0-3900 Absolute Lymphocytes [facility] ([facility]) Platelet mean volume [Entitic volume] in Blood by New 12. 6 fL 7.5-12.5 Above high normal Mpv [facility] ([facility]) Eosinophils [#/volume] in Blood by Automated count 180 cells/uL 15- 500 Absolute Eosinophils [facility] ([facility]) Monocytes [#/volume] in Blood by Automated count 329 cells/uL 200-9 50 Absolute Monocytes [facility] ([facility]) Basophils [#/volume] in Blood by Automated count 42 cells/uL 0-200 Absolute Basophils [facility] ([facility]) Neutrophils/100 leukocytes in Blood by Automated count 70.4 % 38-80 Neutrophils [facility] ([facility]) Lymphocytes/100 leukocytes in Blood by Automated count 19.2 % 15-49 Lymphocytes [facility] ([facility]) Monocytes/100 leukocytes in Blood by Automated count 6.2 % 0-13 Monocytes [facility] ([facility]) Eosinophils/100 leukocytes in Blood by Automated count 3.4 % 0-8 Eosinophils [facility] ([facility]) Basophils/100 leukocytes in Blood by Automated count 0.8 % 0-2 Basophils [facility] ([facility]) ID Date Data Source [id number] 11/13/2020 12:00:00 AM EDT [facility] ([facility]) Name Value Range Interpretation Code Description Data Amy rce(s) Supporting Document(s) Erythrocytes [#/volume] in Blood by Automated count 5.60 million/uL 4.20-5.80 Red Blood Cell Count [facility] ([facility]) Leukocytes [#/volume] in Blood by Automated count 5.3 thousand/uL 3 .8-10.8 White Blood Cell Count [facility] ([facility]) Erythrocyte mean corpuscular volume [Entitic volume] by Auto mated count 77.5 fL 80.0-100.0 Below low normal Mcv [facility] ([facility]) Hematocrit [Volume Fraction] of Blood by Automated count 43.4 % 38.5-50.0 Hematocrit [facility] ([facility]) Hemoglobin [Mass/volume] in Blood 15.4 g/dL 13.2-17.1 He moglobin [facility] ([facility]) Erythrocyte mean corpuscular hemoglobin [Entitic mass] by Automated count 27.5 pg 27.0-33.0 Mch [facility] ([facility]) Platelets [#/volume] in Blood by Automated count 107 thousand/uL 140-400 Below low normal Platelet Count [facility] ([facility]) Erythrocyte distribution width [Ratio] by Automated count 13.8 % 11.0-15.0 Rdw [facility] ([facility]) Erythrocyte mean corpuscular hemoglobin concentration [Mass/volume] by Automated count 35.5 g/dL 32.0-36.0 Mchc [facility] ([facility]) Platelet mean volume [Entitic volume] in Blood by Julito-Gibson 12. 6 fL 7.5-12.5 Above high normal Mpv [facility] ([facility]) Neutrophils [#/volume] in Blood by Automated count 3731 cells/uL 15 00-7800 Absolute Neutrophils [facility] ([facility]) Lymphocytes [#/volume] in Blood by Automated count 1018 cells/uL 85 0-3900 Absolute Lymphocytes [facility] ([facility]) Monocytes [#/volume] in Blood by Automated count 329 cells/uL 200-9 50 Absolute Monocytes [facility] ([facility]) Eosinophils [#/volume] in Blood by Automated count 180 cells/uL 15- 500 Absolute Eosinophils [facility] ([facility]) Basophils [#/volume] in Blood by Automated count 42 cells/uL 0-200 Absolute Basophils [facility] ([facility]) Lymphocytes/100 leukocytes in Blood by Automated count 19.2 % 15-49 Lymphocytes [facility] ([facility]) Eosinophils/100 leukocytes in Blood by Automated count 3.4 % 0-8 Eosinophils [facility] ([facility]) Neutrophils/100 leukocytes in Blood by Automated count 70.4 % 38-80 Neutrophils [facility] ([facility]) Monocytes/100 leukocytes in Blood by Automated count 6.2 % 0-13 Monocytes [facility] ([facility]) Basophils/100 leukocytes in Blood by Automated count 0.8 % 0-2 Basophils [facility] ([facility]) ID Date Data Source [id number] 11/13/2020 12:00:00 AM EDT [facility] ([facility]) Name Value Range Interpretation Code Description Data Amy rce(s) Supporting Document(s) Leukocytes [#/volume] in Blood by Automated count 5.3 thousand/uL 3 .8-10.8 White Blood Cell Count [facility] ([facility]) Erythrocytes [#/volume] in Blood by Automated count 5.60 million/uL 4.20-5.80 Red Blood Cell Count [facility] ([facility]) Hemoglobin [Mass/volume] in Blood 15.4 g/dL 13.2-17.1 He moglobin [facility] ([facility]) Hematocrit [Volume Fraction] of Blood by Automated count 43.4 % 38.5-50.0 Hematocrit [facility] ([facility]) Erythrocyte mean corpuscular hemoglobin [Entitic mass] by Automated count 27.5 pg 27.0-33.0 Mch [facility] ([facility]) Erythrocyte mean corpuscular volume [Entitic volume] by Auto mated count 77.5 fL 80.0-100.0 Below low normal Mcv [facility] ([facility]) Platelets [#/volume] in Blood by Automated count 107 thousand/uL 140-400 Below low normal Platelet Count [facility] ([facility]) Erythrocyte distribution width [Ratio] by Automated count 13.8 % 11.0-15.0 Rdw [facility] ([facility]) Erythrocyte mean corpuscular hemoglobin concentration [Mass/volume] by Automated count 35.5 g/dL 32.0-36.0 Mchc [facility] ([facility]) Neutrophils [#/volume] in Blood by Automated count 3731 cells/uL 15 00-7800 Absolute Neutrophils [facility] ([facility]) Platelet mean volume [Entitic volume] in Blood by Julito-Gibson 12. 6 fL 7.5-12.5 Above high normal Mpv [facility] ([facility]) Monocytes [#/volume] in Blood by Automated count 329 cells/uL 200-9 50 Absolute Monocytes [facility] ([facility]) Lymphocytes [#/volume] in Blood by Automated count 1018 cells/uL 85 0-3900 Absolute Lymphocytes [facility] ([facility]) Eosinophils [#/volume] in Blood by Automated count 180 cells/uL 15- 500 Absolute Eosinophils [facility] ([facility]) Basophils [#/volume] in Blood by Automated count 42 cells/uL 0-200 Absolute Basophils [facility] ([facility]) Monocytes/100 leukocytes in Blood by Automated count 6.2 % 0-13 Monocytes [facility] ([facility]) Neutrophils/100 leukocytes in Blood by Automated count 70.4 % 38-80 Neutrophils [facility] ([facility]) Lymphocytes/100 leukocytes in Blood by Automated count 19.2 % 15-49 Lymphocytes [facility] ([facility]) Eosinophils/100 leukocytes in Blood by Automated count 3.4 % 0-8 Eosinophils [facility] ([facility]) Basophils/100 leukocytes in Blood by Automated count 0.8 % 0-2 Basophils [facility] ([facility]) ID Date Data Source [id number] 09/10/2020 10:00:00 PM EDT [facility] Name Value Range Interpretation Code Description Data Amy rce(s) Supporting Document(s) [id number] NEGATIVE [facility] ID Date Data Source [id number] 09/10/2020 10:00:00 PM EDT [facility] Name Value Range Interpretation Code Description Data Amy rce(s) Supporting Document(s) [id number] NEGATIVE [facility] ID Date Data Source [id number] 09/10/2020 12:00:00 AM EDT [place] ([facility]) Name Value Range Interpretation Code Description Data Amy rce(s) Supporting Document(s) SARS-CoV-2 (COVID-19) IgG Ab [Presence] in Serum or Pl asma by Immunoassay negative negative Sars Cov 2 Ab IgG [facility] ([facility]) SARS-CoV-2 (COVID-19) IgM Ab [Presence] in Serum or Pl asma by Immunoassay negative negative Sars Cov 2 IgM [place] ([facility]) ID Date Data Source [id number] 09/10/2020 12:00:00 AM EDT [facility]) Name Value Range Interpretation Code Description Data Amy rce(s) Supporting Document(s) SARS-CoV-2 (COVID-19) IgM Ab [Presence] in Serum or Pl asma by Immunoassay negative negative Sars Cov 2 IgM [facility] ([facility]) SARS-CoV-2 (COVID-19) IgG Ab [Presence] in Serum or Pl asma by Immunoassay negative negative Sars Cov 2 Ab IgG [facility]) ID Date Data Source [id number] 09/10/2020 12:00:00 AM EDT [facility] ([facility]) Name Value Range Interpretation Code Description Data Amy rce(s) Supporting Document(s) SARS-CoV-2 (COVID-19) IgM Ab [Presence] in Serum or Pl asma by Immunoassay negative negative Sars Cov 2 IgM [facility] ([facility]) SARS-CoV-2 (COVID-19) IgG Ab [Presence] in Serum or Pl asma by Immunoassay negative negative [facility] ID Date Data Source [id number] 09/10/2020 12:00:00 AM EDT [facility] ([facility]) Name Value Range Interpretation Code Description Data Amy rce(s) Supporting Document(s) SARS-CoV-2 (COVID-19) IgG Ab [Presence] in Serum or Pl asma by Immunoassay negative negative Sars Cov 2 Ab IgG [facility] ([facility]) SARS-CoV-2 (COVID-19) IgM Ab [Presence] in Serum or Pl asma by Immunoassay negative negative Sars Cov 2 IgM [facility] ([facility]) ID Date Data Source [id number] 09/10/2020 12:00:00 AM EDT [facility]) Name Value Range Interpretation Code Description Data Amy rce(s) Supporting Document(s) SARS-CoV-2 (COVID-19) IgM Ab [Presence] in Serum or Pl asma by Immunoassay negative negative Sars Cov 2 IgM [facility] ([facility]) SARS-CoV-2 (COVID-19) IgG Ab [Presence] in Serum or Pl asma by Immunoassay negative negative Sars Cov 2 Ab IgG [facility]) ID Date Data Source [id number] 09/10/2020 12:00:00 AM EDT [facility]) Name Value Range Interpretation Code Description Data Amy rce(s) Supporting Document(s) SARS-CoV-2 (COVID-19) IgM Ab [Presence] in Serum or Pl asma by Immunoassay negative negative Sars Cov 2 IgM [facility] ([facility]) SARS-CoV-2 (COVID-19) IgG Ab [Presence] in Serum or Pl asma by Immunoassay negative negative [facility]ars Cov [facility] ID Date Data Source [id number] 09/10/2020 12:00:00 AM EDT [facility]) Name Value Range Interpretation Code Description Data Amy rce(s) Supporting Document(s) SARS-CoV-2 (COVID-19) IgG Ab [Presence] in Serum or Pl asma by Immunoassay negative negative Sars Cov 2 Ab IgG [facility] ([facility]) SARS-CoV-2 (COVID-19) IgM Ab [Presence] in Serum or Pl asma by Immunoassay negative [facility] Date Data Source [id number] 09/10/2020 12:00:00 AM EDT [facility] Name Value Range Interpretation Code Description Data Amy rce(s) Supporting Document(s) SARS-CoV-2 (COVID-19) IgG Ab [Presence] in Serum or Pl asma by Immunoassay negative negative Sars Cov 2 Ab IgG [place] ([facility]) SARS-CoV-2 (COVID-19) IgM Ab [Presence] in Serum or Pl asma by Immunoassay negative negative Sars Cov 2 IgM [facility]) ID Date Data Source [id number] 08/25/2020 03:21:00 PM EDT [facility]) Name Value Range Interpretation Code Description Data Amy rce(s) Supporting Document(s) sars-cov-2 negative negative Sars-cov-2 [facility]) ID Date Data Source [id number] 08/25/2020 03:21:00 PM EDT [facility]) Name Value Range Interpretation Code Description Data Amy rce(s) Supporting Document(s) sars-cov-2 negative negative Sars-cov-2 [facility]) ID Date Data Source [id number] 08/25/2020 03:21:00 PM EDT [facility]) Name Value Range Interpretation Code Description Data Amy rce(s) Supporting Document(s) sars-cov-2 negative negative Sars-cov-2 [facility]) ID Date Data Source [id number] 08/25/2020 03:21:00 PM EDT [facility]) Name Value Range Interpretation Code Description Data Amy rce(s) Supporting Document(s) sars-cov-2 negative negative Sars-cov-2 [facility]) ID Date Data Source [id number] 08/25/2020 03:21:00 PM EDT [facility]) Name Value Range Interpretation Code Description Data Amy rce(s) Supporting Document(s) sars-cov-2 negative negative Sars-cov-2 [place] ([facility]) ID Date Data Source [id number] 08/25/2020 03:21:00 PM EDT [facility]) Name Value Range Interpretation Code Description Data Amy rce(s) Supporting Document(s) sars-cov-2 negative negative Sars-cov-2 [place] ([facility]) ID Date Data Source [id number] 08/25/2020 03:21:00 PM EDT [facility]) Name Value Range Interpretation Code Description Data Amy rce(s) Supporting Document(s) sars-cov-2 negative negative Sars-cov-2 [facility]) ID Date Data Source [id number] 08/25/2020 03:21:00 PM EDT [facility]) Name Value Range Interpretation Code Description Data Amy rce(s) Supporting Document(s) sars-cov-2 negative negative Sars-cov-2 [place] ([facility]) ID Date Data Source [id number] 08/25/2020 03:21:00 PM EDT [facility]) Name Value Range Interpretation Code Description Data Amy rce(s) Supporting Document(s) sars-cov-2 negative negative Sars-cov-2 [place] ([facility]) ID Date Data Source [id number] 08/25/2020 03:21:00 PM EDT [place] ([facility]) Name Value Range Interpretation Code Description Data Amy rce(s) Supporting Document(s) sars-cov-2 negative negative Sars-cov-2 [facility]) ID Date Data Source [id number] 08/25/2020 02:19:00 PM EDT [facility] Name Value Range Interpretation Code Description Data Amy rce(s) Supporting Document(s) SARS coronavirus 2 RdRp gene [Presence] in Respiratory specimen by PURNIMA with probe detection Not detected [facility] This lab was ordered by [facility] and reported by [facility]. ID Date Data Source [id number] 07/30/2020 01:48:00 PM EDT [place] ([facility]) Name Value Range Interpretation Code Description Data Amy rce(s) Supporting Document(s) lipase 35 U/L 73-393 Below low normal Lipase [facility] ( [facility]) ID Date Data Source [id number] 07/30/2020 01:48:00 PM EDT [place] ([facility]) Name Value Range Interpretation Code Description Data Amy rce(s) Supporting Document(s) glucose, fasting 90 mg/dL 70-100 Glucose, Fasting AT [facility] ([facility]) blood urea nitrogen 9 mg/dL 7-18 Blood Urea Nitro gen [facility] ([facility]) glomerular filtration rate > 60.0 >60 Glomerula r Filtration Rate [facility] ([facility]) creatinine for GFR 1.03 mg/dL 0.70-1.30 Creatinine for GF R [place] ([facility]) sodium level 137 mEq/L 136-145 Sodium Level [place] (No [facility]) chloride level 107 mEq/L 98-107 Chloride Level [place] ([facility]) potassium serum 4.9 mEq/L 3.5-5.1 Potassium Serum ATH NA ([facility]) carbon dioxide level 24 mEq/L 21-32 Carbon Dioxide Level [place] ([facility]) anion gap 6 mEq/L 8-16 Below low normal Anion Gap [facility] ( [facility]) calcium level 10.0 mg/dL 8.5-10.1 Calcium Level [place] ( [facility]) ID Date Data Source [id number] 07/30/2020 01:48:00 PM EDT [place] ([facility]) Name Value Range Interpretation Code Description Data Amy rce(s) Supporting Document(s) AST/SGOT 37 U/L 7-37 AST/SGOT [facility] ([facility]) ALT/SGPT 17 U/L 12-78 ALT/SGPT [facility] ([facility]) alkaline phosphatase 49 U/L 45-117 Alkaline Phosph atase [facility] ([facility]) bilirubin,total 1.1 mg/dL 0.2-1.0 Above high normal Bilirubin,tot al [facility] ([facility]) total protein 8.5 gm/dL 6.4-8.2 Above high normal Total Protein A THEN ([facility]) bilirubin,direct 0.2 mg/dL 0.0-0.2 Bilirubin,direct AT [facility] ([facility]) albumin 5.5 gm/dL 3.2-5.2 Above high normal Albumin [place] ([facility]) albumin/globulin ratio Albumin/globu maría Ratio [place] ([facility]) ID Date Data Source [id number] 07/30/2020 01:48:00 PM EDT [place] ([facility]) Name Value Range Interpretation Code Description Data Amy rce(s) Supporting Document(s) white blood count 7.2 10 4.0-10.0 White Blood Count [facility] ([facility]) hemoglobin 15.6 g/dL 13.5-17.5 Hemoglobin [facility] ([facility]) red blood count 5.72 10 4.30-6.10 Red Blood Count AT[facility] ([facility]) hematocrit 44.8 % 42.0-52.0 Hematocrit [facility] ([facility]) mean corpuscular volume 78.3 fL 80.0-96.0 Below low normal Mean Corpuscular Volume [facility] ([facility]) mean corpuscular HGB conc 34.8 g/dL 32.0-36.5 Mean Corpu scular HGB Conc [facility] ([facility]) mean corpuscular hemoglobin 27.3 pg 27.0-33.0 Mean Cor puscular Hemoglobin [facility] ([facility]) red cell distribution width 13.2 % 11.5-14.5 Red Cell Distribution Width [facility] ([facility]) platelet count, automated 115 10 150-450 Below low va l Platelet Count, Automated [facility] ([facility]) neutrophils % 75.7 % 36.0-66.0 Above high normal Neutrophils % A THENA ([facility]) lymph % 17.5 % 24.0-44.0 Below low normal Lymph % [facility] ( [facility]) mono % 5.4 % 2.0-8.0 [place] % [facility] ([facility]) eos % 0.4 % 0.0-3.0 Eos % [facility] ([facility]) baso % 0.4 % 0.0-1.0 Baso % [place] ([facility]) nucleated red blood cell % 0.0 % 0-0 Nucleated Red Blood Cell % [place] ([facility]) immature granulocyte % 0.6 % 0-3.0 Immature Gran ulocyte % [facility] ([facility]) neutrophils # 5.4 10 1.5-8.5 Neutrophils # [facility] ( [facility]) lymph # 1.3 10 1.5-5.0 Below low normal Lymph # [facility] ( [facility]) eos # 0.0 10 0.0-0.5 Eos # [facility] ([facility]) mono # 0.4 10 0.0-0.8 [place] # [facility] ([facility]) baso # 0.0 10 0.0-0.2 Baso # [facility] ([facility]) ID Date Data Source [id number] 07/30/2020 01:48:00 PM EDT [facility] ([facility]) Name Value Range Interpretation Code Description Data Amy rce(s) Supporting Document(s) lipase 35 U/L 73-393 Below low normal Lipase [place] ( [facility]) ID Date Data Source [id number] 07/30/2020 01:48:00 PM EDT [place] ([facility]) Name Value Range Interpretation Code Description Data Amy rce(s) Supporting Document(s) glucose, fasting 90 mg/dL 70-100 Glucose, Fasting AT [facility] ([facility]) creatinine for GFR 1.03 mg/dL 0.70-1.30 Creatinine for GF R [facility] ([facility]) blood urea nitrogen 9 mg/dL 7-18 Blood Urea Nitro gen [facility] ([facility]) glomerular filtration rate > 60.0 >60 Glomerula r Filtration Rate [facility] ([facility]) sodium level 137 mEq/L 136-145 Sodium Level [facility] (No [facility]) potassium serum 4.9 mEq/L 3.5-5.1 Potassium Serum ATH NA ([facility]) chloride level 107 mEq/L 98-107 Chloride Level [place] ([facility]) carbon dioxide level 24 mEq/L 21-32 Carbon Dioxide Level [place] ([facility]) anion gap 6 mEq/L 8-16 Below low normal Anion Gap [place] ( [facility]) calcium level 10.0 mg/dL 8.5-10.1 Calcium Level [place] ( [facility]) ID Date Data Source [id number] 07/30/2020 01:48:00 PM EDT [place] ([facility]) Name Value Range Interpretation Code Description Data Amy rce(s) Supporting Document(s) AST/SGOT 37 U/L 7-37 AST/SGOT [place] ([facility]) ALT/SGPT 17 U/L 12-78 ALT/SGPT [place] ([facility]) alkaline phosphatase 49 U/L 45-117 Alkaline Phosph atase [facility] ([facility]) bilirubin,total 1.1 mg/dL 0.2-1.0 Above high normal Bilirubin,tot al [facility]) bilirubin,direct 0.2 mg/dL 0.0-0.2 Bilirubin,direct AT [facility] ([facility]) total protein 8.5 gm/dL 6.4-8.2 Above high normal Total Protein A [facility]) albumin 5.5 gm/dL 3.2-5.2 Above high normal Albumin [place] ([facility]) albumin/globulin ratio Albumin/globu maría Ratio [facility] ([facility]) ID Date Data Source [id number] 07/30/2020 01:48:00 PM EDT [facility] ([facility]) Name Value Range Interpretation Code Description Data Amy rce(s) Supporting Document(s) white blood count 7.2 10 4.0-10.0 White Blood Count [facility] ([facility]) red blood count 5.72 10 4.30-6.10 Red Blood Count ATHE NA ([facility]) hemoglobin 15.6 g/dL 13.5-17.5 Hemoglobin [facility] ([facility]) hematocrit 44.8 % 42.0-52.0 Hematocrit [facility] ([facility]) mean corpuscular volume 78.3 fL 80.0-96.0 Below low normal Mean Corpuscular Volume [facility] ([facility]) mean corpuscular hemoglobin 27.3 pg 27.0-33.0 Mean Cor puscular Hemoglobin [facility] ([facility]) mean corpuscular HGB conc 34.8 g/dL 32.0-36.5 Mean Corpu scular HGB Conc [facility] ([facility]) red cell distribution width 13.2 % 11.5-14.5 Red Cell Distribution Width [facility] ([facility]) platelet count, automated 115 10 150-450 Below low va l Platelet Count, Automated [facility] ([facility]) neutrophils % 75.7 % 36.0-66.0 Above high normal Neutrophils % A THENA ([facility]) lymph % 17.5 % 24.0-44.0 Below low normal Lymph % [facility] ( [facility]) mono % 5.4 % 2.0-8.0 [place] % [facility] ([facility]) eos % 0.4 % 0.0-3.0 Eos % [facility] ([facility]) baso % 0.4 % 0.0-1.0 Baso % [facility] ([facility]) nucleated red blood cell % 0.0 % 0-0 Nucleated Red Blood Cell % [facility] ([facility]) immature granulocyte % 0.6 % 0-3.0 Immature Gran ulocyte % [facility] ([facility]) neutrophils # 5.4 10 1.5-8.5 Neutrophils # [facility] ( [facility]) lymph # 1.3 10 1.5-5.0 Below low normal Lymph # [facility] ( [facility]) mono # 0.4 10 0.0-0.8 [place] # [facility] ([facility]) eos # 0.0 10 0.0-0.5 Eos # [place]INK[place] ([facility]) baso # 0.0 10 0.0-0.2 Baso # [place] ([facility]) ID Date Data Source [id number] 07/30/2020 01:48:00 PM EDT [facility]) Name Value Range Interpretation Code Description Data Amy rce(s) Supporting Document(s) lipase 35 U/L 73-393 Below low normal Lipase [place] ( [facility]) ID Date Data Source [id number] 07/30/2020 01:48:00 PM EDT [facility]) Name Value Range Interpretation Code Description Data Amy rce(s) Supporting Document(s) glucose, fasting 90 mg/dL 70-100 Glucose, Fasting AT [facility]) blood urea nitrogen 9 mg/dL 7-18 Blood Urea Nitro gen [place] ([facility]) creatinine for GFR 1.03 mg/dL 0.70-1.30 Creatinine for GF R [place] ([facility]) glomerular filtration rate > 60.0 >60 Glomerula r Filtration Rate [place] ([facility]) sodium level 137 mEq/L 136-145 Sodium Level [place] (No [facility]) potassium serum 4.9 mEq/L 3.5-5.1 Potassium Serum ATH NA ([facility]) chloride level 107 mEq/L 98-107 Chloride Level [place] ([facility]) carbon dioxide level 24 mEq/L 21-32 Carbon Dioxide Level [place] ([facility]) anion gap 6 mEq/L 8-16 Below low normal Anion Gap [place] ( [facility]) calcium level 10.0 mg/dL 8.5-10.1 Calcium Level [place] ( [facility]) ID Date Data Source [id number] 07/30/2020 01:48:00 PM EDT [place] ([facility]) Name Value Range Interpretation Code Description Data Amy rce(s) Supporting Document(s) AST/SGOT 37 U/L 7-37 AST/SGOT [place] ([facility]) ALT/SGPT 17 U/L 12-78 ALT/SGPT [place] ([facility]) alkaline phosphatase 49 U/L 45-117 Alkaline Phosph atase [place] ([facility]) bilirubin,total 1.1 mg/dL 0.2-1.0 Above high normal Bilirubin,tot al [place] ([facility]) total protein 8.5 gm/dL 6.4-8.2 Above high normal Total Protein A [facility] ([facility]) bilirubin,direct 0.2 mg/dL 0.0-0.2 Bilirubin,direct AT [facility] ([facility]) albumin 5.5 gm/dL 3.2-5.2 Above high normal Albumin [place] ([facility]) albumin/globulin ratio Albumin/globu maría Ratio [place] ([facility]) ID Date Data Source [id number] 07/30/2020 01:48:00 PM EDT [place] ([facility]) Name Value Range Interpretation Code Description Data Amy rce(s) Supporting Document(s) white blood count 7.2 10 4.0-10.0 White Blood Count [place] ([facility]) red blood count 5.72 10 4.30-6.10 Red Blood Count ATHE NA ([facility]) hemoglobin 15.6 g/dL 13.5-17.5 Hemoglobin [place] ([facility]) hematocrit 44.8 % 42.0-52.0 Hematocrit [place] ([facility]) mean corpuscular volume 78.3 fL 80.0-96.0 Below low normal Mean Corpuscular Volume [place] ([facility]) mean corpuscular hemoglobin 27.3 pg 27.0-33.0 Mean Cor puscular Hemoglobin [place] ([facility]) red cell distribution width 13.2 % 11.5-14.5 Red Cell Distribution Width [place] ([facility]) mean corpuscular HGB conc 34.8 g/dL 32.0-36.5 Mean Corpu scular HGB Conc [place] ([facility]) platelet count, automated 115 10 150-450 Below low va l Platelet Count, Automated [place] ([facility]) neutrophils % 75.7 % 36.0-66.0 Above high normal Neutrophils % A [place] ([facility]) lymph % 17.5 % 24.0-44.0 Below low normal Lymph % [place] ( [facility]) mono % 5.4 % 2.0-8.0 [place] % [place] ([facility]) eos % 0.4 % 0.0-3.0 Eos % [place] ([facility]) baso % 0.4 % 0.0-1.0 Baso % [place] ([facility]) immature granulocyte % 0.6 % 0-3.0 Immature Gran ulocyte % [place] ([facility]) nucleated red blood cell % 0.0 % 0-0 Nucleated Red Blood Cell % [place] ([facility]) neutrophils # 5.4 10 1.5-8.5 Neutrophils # [place] ( [facility]) mono # 0.4 10 0.0-0.8 [place] # [place] ([facility]) lymph # 1.3 10 1.5-5.0 Below low normal Lymph # [place] ( [facility]) eos # 0.0 10 0.0-0.5 Eos # [place] ([facility]) baso # 0.0 10 0.0-0.2 Baso # [place] ([facility]) ID Date Data Source [id number] 07/30/2020 01:48:00 PM EDT [place] ([facility]) Name Value Range Interpretation Code Description Data Amy rce(s) Supporting Document(s) lipase 35 U/L 73-393 Below low normal Lipase [place] ( [facility]) ID Date Data Source [id number] 07/30/2020 01:48:00 PM EDT [place] ([facility]) Name Value Range Interpretation Code Description Data Amy rce(s) Supporting Document(s) glucose, fasting 90 mg/dL 70-100 Glucose, Fasting AT [facility]) blood urea nitrogen 9 mg/dL 7-18 Blood Urea Nitro gen [place] ([facility]) creatinine for GFR 1.03 mg/dL 0.70-1.30 Creatinine for GF R [place] ([facility]) glomerular filtration rate > 60.0 >60 Glomerula r Filtration Rate [place] ([facility]) potassium serum 4.9 mEq/L 3.5-5.1 Potassium Serum ATH NA ([facility]) sodium level 137 mEq/L 136-145 Sodium Level [place] (No [facility]) chloride level 107 mEq/L 98-107 Chloride Level [place] ([facility]) carbon dioxide level 24 mEq/L 21-32 Carbon Dioxide Level [place] ([facility]) anion gap 6 mEq/L 8-16 Below low normal Anion Gap [place] ( [facility]) calcium level 10.0 mg/dL 8.5-10.1 Calcium Level [place] ( [facility]) ID Date Data Source [id number] 07/30/2020 01:48:00 PM EDT [place] ([facility]) Name Value Range Interpretation Code Description Data Amy rce(s) Supporting Document(s) AST/SGOT 37 U/L 7-37 AST/SGOT [place] ([facility]) ALT/SGPT 17 U/L 12-78 ALT/SGPT [place] ([facility]) bilirubin,total 1.1 mg/dL 0.2-1.0 Above high normal Bilirubin,tot al [place] ([facility]) alkaline phosphatase 49 U/L 45-117 Alkaline Phosph atase [place] ([facility]) bilirubin,direct 0.2 mg/dL 0.0-0.2 Bilirubin,direct AT [facility] ([facility]) total protein 8.5 gm/dL 6.4-8.2 Above high normal Total Protein A [facility] ([facility]) albumin 5.5 gm/dL 3.2-5.2 Above high normal Albumin [place] ([facility]) albumin/globulin ratio Albumin/globu maría Ratio [place] ([facility]) ID Date Data Source [id number] 07/30/2020 01:48:00 PM EDT [place] ([facility]) Name Value Range Interpretation Code Description Data Amy rce(s) Supporting Document(s) white blood count 7.2 10 4.0-10.0 White Blood Count [place] ([facility]) hemoglobin 15.6 g/dL 13.5-17.5 Hemoglobin [place] ([facility]) red blood count 5.72 10 4.30-6.10 Red Blood Count ATHE ([facility]) hematocrit 44.8 % 42.0-52.0 Hematocrit [place] ([facility]) mean corpuscular volume 78.3 fL 80.0-96.0 Below low normal Mean Corpuscular Volume [place] ([facility]) mean corpuscular HGB conc 34.8 g/dL 32.0-36.5 Mean Corpu scular HGB Conc [place] ([facility]) mean corpuscular hemoglobin 27.3 pg 27.0-33.0 Mean Cor puscular Hemoglobin [place] ([facility]) red cell distribution width 13.2 % 11.5-14.5 Red Cell Distribution Width [place] ([facility]) neutrophils % 75.7 % 36.0-66.0 Above high normal Neutrophils % A [facility] ([facility]) platelet count, automated 115 10 150-450 Below low va l Platelet Count, Automated [place] ([facility]) lymph % 17.5 % 24.0-44.0 Below low normal Lymph % [place] ( [facility]) mono % 5.4 % 2.0-8.0 [place] % [place] ([facility]) eos % 0.4 % 0.0-3.0 Eos % [place] ([facility]) baso % 0.4 % 0.0-1.0 Baso % [place] ([facility]) immature granulocyte % 0.6 % 0-3.0 Immature Gran ulocyte % [place] ([facility]) nucleated red blood cell % 0.0 % 0-0 Nucleated Red Blood Cell % [place] ([facility]) lymph # 1.3 10 1.5-5.0 Below low normal Lymph # [place] ( [facility]) neutrophils # 5.4 10 1.5-8.5 Neutrophils # [place] ( [facility]) mono # 0.4 10 0.0-0.8 [place] # [place] ([facility]) eos # 0.0 10 0.0-0.5 Eos # [place] ([facility]) baso # 0.0 10 0.0-0.2 Baso # [place] ([facility]) ID Date Data Source [id number] 07/30/2020 01:48:00 PM EDT [place] ([facility]) Name Value Range Interpretation Code Description Data Amy rce(s) Supporting Document(s) lipase 35 U/L 73-393 Below low normal Lipase [place] ( [facility]) ID Date Data Source [id number] 07/30/2020 01:48:00 PM EDT [place] ([facility]) Name Value Range Interpretation Code Description Data Amy rce(s) Supporting Document(s) glucose, fasting 90 mg/dL 70-100 Glucose, Fasting AT [facility] ([facility]) blood urea nitrogen 9 mg/dL 7-18 Blood Urea Nitro gen [place] ([facility]) glomerular filtration rate > 60.0 >60 Glomerula r Filtration Rate [place] ([facility]) creatinine for GFR 1.03 mg/dL 0.70-1.30 Creatinine for GF R [place] ([facility]) potassium serum 4.9 mEq/L 3.5-5.1 Potassium Serum ATHE NA ([facility]) sodium level 137 mEq/L 136-145 Sodium Level [place] (No [facility]) carbon dioxide level 24 mEq/L 21-32 Carbon Dioxide Level [place] ([facility]) chloride level 107 mEq/L 98-107 Chloride Level [place] ([facility]) anion gap 6 mEq/L 8-16 Below low normal Anion Gap [place] ( [facility]) calcium level 10.0 mg/dL 8.5-10.1 Calcium Level [place] ( [facility]) ID Date Data Source [id number] 07/30/2020 01:48:00 PM EDT [place] ([facility]) Name Value Range Interpretation Code Description Data Amy rce(s) Supporting Document(s) AST/SGOT 37 U/L 7-37 AST/SGOT [place] ([facility]) ALT/SGPT 17 U/L 12-78 ALT/SGPT [place] ([facility]) alkaline phosphatase 49 U/L 45-117 Alkaline Phosph atase [place] ([facility]) bilirubin,direct 0.2 mg/dL 0.0-0.2 Bilirubin,direct AT [facility]) bilirubin,total 1.1 mg/dL 0.2-1.0 Above high normal [facility] albumin 5.5 gm/dL 3.2-5.2 Above high normal Albumin [place] ([facility]) total protein 8.5 gm/dL 6.4-8.2 Above high normal Total Protein A [facility]) albumin/globulin ratio Albumin/globu maría Ratio [facility]) ID Date Data Source [id number] 07/30/2020 01:48:00 PM EDT [facility]) Name Value Range Interpretation Code Description Data Amy rce(s) Supporting Document(s) white blood count 7.2 10 4.0-10.0 White Blood Count [place] ([facility]) red blood count 5.72 10 4.30-6.10 Red Blood Count ATHE NA ([facility]) hematocrit 44.8 % 42.0-52.0 Hematocrit [place] ([facility]) hemoglobin 15.6 g/dL 13.5-17.5 Hemoglobin [place] ([facility]) mean corpuscular hemoglobin 27.3 pg 27.0-33.0 Mean Cor puscular Hemoglobin [place] ([facility]) mean corpuscular volume 78.3 fL 80.0-96.0 Below low normal Mean Corpuscular Volume [place] ([facility]) mean corpuscular HGB conc 34.8 g/dL 32.0-36.5 Mean Corpu scular HGB Conc [place] ([facility]) red cell distribution width 13.2 % 11.5-14.5 Red Cell Distribution Width [place] ([facility]) platelet count, automated 115 10 150-450 Below low va l Platelet Count, Automated [place] ([facility]) neutrophils % 75.7 % 36.0-66.0 Above high normal Neutrophils % A [place] ([facility]) lymph % 17.5 % 24.0-44.0 Below low normal Lymph % [place] ( [facility]) mono % 5.4 % 2.0-8.0 [place] % [place] ([facility]) eos % 0.4 % 0.0-3.0 Eos % [place] ([facility]) baso % 0.4 % 0.0-1.0 Baso % [place] ([facility]) immature granulocyte % 0.6 % 0-3.0 Immature Gran ulocyte % [place] ([facility]) nucleated red blood cell % 0.0 % 0-0 Nucleated Red Blood Cell % [place] ([facility]) lymph # 1.3 10 1.5-5.0 Below low normal Lymph # [place] ( [facility]) neutrophils # 5.4 10 1.5-8.5 Neutrophils # [place] ( [facility]) mono # 0.4 10 0.0-0.8 [place] # [place] ([facility]) eos # 0.0 10 0.0-0.5 Eos # [place] ([facility]) baso # 0.0 10 0.0-0.2 Baso # [place] ([facility]) ID Date Data Source [id number] 07/30/2020 01:48:00 PM EDT [place] ([facility]) Name Value Range Interpretation Code Description Data Amy rce(s) Supporting Document(s) lipase 35 U/L 73-393 Below low normal Lipase [place] ( [facility]) ID Date Data Source [id number] 07/30/2020 01:48:00 PM EDT [facility]) Name Value Range Interpretation Code Description Data Amy rce(s) Supporting Document(s) glucose, fasting 90 mg/dL 70-100 Glucose, Fasting AT [facility]) blood urea nitrogen 9 mg/dL 7-18 Blood Urea Nitro gen [place] ([facility]) creatinine for GFR 1.03 mg/dL 0.70-1.30 Creatinine for GF R [place] ([facility]) glomerular filtration rate > 60.0 >60 Glomerula r Filtration Rate [place] ([facility]) potassium serum 4.9 mEq/L 3.5-5.1 Potassium Serum ATHE NA ([facility]) sodium level 137 mEq/L 136-145 Sodium Level [place] ([facility]) chloride level 107 mEq/L 98-107 Chloride Level [place] ([facility]) carbon dioxide level 24 mEq/L 21-32 Carbon Dioxide Level [place] ([facility]) anion gap 6 mEq/L 8-16 Below low normal Anion Gap [place] ( [facility]) calcium level 10.0 mg/dL 8.5-10.1 Calcium Level [facility]) ID Date Data Source [id number] 07/30/2020 01:48:00 PM EDT [facility]) Name Value Range Interpretation Code Description Data Amy rce(s) Supporting Document(s) AST/SGOT 37 U/L 7-37 AST/SGOT [place] ([facility]) ALT/SGPT 17 U/L 12-78 ALT/SGPT [place] ([facility]) alkaline phosphatase 49 U/L 45-117 Alkaline Phosph atase [place] ([facility]) bilirubin,total 1.1 mg/dL 0.2-1.0 Above high normal Bilirubin,tot al [place] ([facility]) bilirubin,direct 0.2 mg/dL 0.0-0.2 Bilirubin,direct AT [facility]) albumin 5.5 gm/dL 3.2-5.2 Above high normal Albumin [place] ([facility]) total protein 8.5 gm/dL 6.4-8.2 Above high normal Total Protein A [facility] ([facility]) albumin/globulin ratio Albumin/globu maría Ratio [place] ([facility]) ID Date Data Source [id number] 07/30/2020 01:48:00 PM EDT [place] ([facility]) Name Value Range Interpretation Code Description Data Amy rce(s) Supporting Document(s) white blood count 7.2 10 4.0-10.0 White Blood Count [place] ([facility]) hemoglobin 15.6 g/dL 13.5-17.5 Hemoglobin [place] ([facility]) red blood count 5.72 10 4.30-6.10 Red Blood Count ATHE NA ([facility]) hematocrit 44.8 % 42.0-52.0 Hematocrit [place] ([facility]) mean corpuscular volume 78.3 fL 80.0-96.0 Below low normal Mean Corpuscular Volume [place] ([facility]) mean corpuscular hemoglobin 27.3 pg 27.0-33.0 Mean Cor puscular Hemoglobin [place] ([facility]) mean corpuscular HGB conc 34.8 g/dL 32.0-36.5 Mean Corpu scular HGB Conc [place] ([facility]) platelet count, automated 115 10 150-450 Below low va l Platelet Count, Automated [place] ([facility]) red cell distribution width 13.2 % 11.5-14.5 Red Cell Distribution Width [place] ([facility]) neutrophils % 75.7 % 36.0-66.0 Above high normal Neutrophils % A [place] ([facility]) lymph % 17.5 % 24.0-44.0 Below low normal Lymph % [place] ( [facility]) mono % 5.4 % 2.0-8.0 [place] % [place] ([facility]) eos % 0.4 % 0.0-3.0 Eos % [place] ([facility]) baso % 0.4 % 0.0-1.0 Baso % [place] ([facility]) immature granulocyte % 0.6 % 0-3.0 Immature Gran ulocyte % [place] ([facility]) nucleated red blood cell % 0.0 % 0-0 Nucleated Red Blood Cell % [place] ([facility]) neutrophils # 5.4 10 1.5-8.5 Neutrophils # [place] ( [facility]) mono # 0.4 10 0.0-0.8 [place] # [place] ([facility]) lymph # 1.3 10 1.5-5.0 Below low normal Lymph # [place] ( [facility]) eos # 0.0 10 0.0-0.5 Eos # [place] ([facility]) baso # 0.0 10 0.0-0.2 Baso # [place] ([facility]) ID Date Data Source [id number] 07/30/2020 01:48:00 PM EDT [place] ([facility]) Name Value Range Interpretation Code Description Data Amy rce(s) Supporting Document(s) lipase 35 U/L 73-393 Below low normal Lipase [place] ( [facility]) ID Date Data Source [id number] 07/30/2020 01:48:00 PM EDT [place] ([facility]) Name Value Range Interpretation Code Description Data Amy rce(s) Supporting Document(s) glucose, fasting 90 mg/dL 70-100 Glucose, Fasting AT [facility]) blood urea nitrogen 9 mg/dL 7-18 Blood Urea Nitro gen [place] ([facility]) creatinine for GFR 1.03 mg/dL 0.70-1.30 Creatinine for GF R [place] ([facility]) glomerular filtration rate > 60.0 >60 Glomerula r Filtration Rate [place] ([facility]) sodium level 137 mEq/L 136-145 Sodium Level [place] (No [facility]) potassium serum 4.9 mEq/L 3.5-5.1 Potassium Serum [facility]) chloride level 107 mEq/L 98-107 Chloride Level [place] ([facility]) carbon dioxide level 24 mEq/L 21-32 Carbon Dioxide Level [facility]) anion gap 6 mEq/L 8-16 Below low normal Anion Gap [place] ( [facility]) calcium level 10.0 mg/dL 8.5-10.1 Calcium Level [place] ( [facility]) ID Date Data Source [id number] 07/30/2020 01:48:00 PM EDT [facility]) Name Value Range Interpretation Code Description Data Amy rce(s) Supporting Document(s) ALT/SGPT 17 U/L 12-78 ALT/SGPT [place] ([facility]) AST/SGOT 37 U/L 7-37 AST/SGOT [place] ([facility]) alkaline phosphatase 49 U/L 45-117 Alkaline Phosph atase [place] ([facility]) bilirubin,total 1.1 mg/dL 0.2-1.0 Above high normal Bilirubin,tot al [facility]) bilirubin,direct 0.2 mg/dL 0.0-0.2 Bilirubin,direct AT [facility]) albumin 5.5 gm/dL 3.2-5.2 Above high normal Albumin [place] ([facility]) total protein 8.5 gm/dL 6.4-8.2 Above high normal Total Protein [facility]) albumin/globulin ratio Albumin/globu maría Ratio [place] ([facility]) ID Date Data Source [id number] 07/30/2020 01:48:00 PM EDT [place] ([facility]) Name Value Range Interpretation Code Description Data Amy rce(s) Supporting Document(s) white blood count 7.2 10 4.0-10.0 White Blood Count [place] ([facility]) red blood count 5.72 10 4.30-6.10 Red Blood Count ATHE NA ([facility]) hemoglobin 15.6 g/dL 13.5-17.5 Hemoglobin [place] ([facility]) mean corpuscular volume 78.3 fL 80.0-96.0 Below low normal Mean Corpuscular Volume [place] ([facility]) hematocrit 44.8 % 42.0-52.0 Hematocrit [place] ([facility]) mean corpuscular hemoglobin 27.3 pg 27.0-33.0 Mean Cor puscular Hemoglobin [place] ([facility]) mean corpuscular HGB conc 34.8 g/dL 32.0-36.5 Mean Corpu scular HGB Conc [place] ([facility]) red cell distribution width 13.2 % 11.5-14.5 Red Cell Distribution Width [place] ([facility]) platelet count, automated 115 10 150-450 Below low va l Platelet Count, Automated [place] ([facility]) lymph % 17.5 % 24.0-44.0 Below low normal Lymph % [place] ( [facility]) neutrophils % 75.7 % 36.0-66.0 Above high normal Neutrophils % A [facility] ([facility]) eos % 0.4 % 0.0-3.0 Eos % [place] ([facility]) mono % 5.4 % 2.0-8.0 [place] % [place] ([facility]) baso % 0.4 % 0.0-1.0 Baso % [place] ([facility]) nucleated red blood cell % 0.0 % 0-0 Nucleated Red Blood Cell % [place] ([facility]) immature granulocyte % 0.6 % 0-3.0 Immature Gran ulocyte % [place] ([facility]) neutrophils # 5.4 10 1.5-8.5 Neutrophils # [place] ( [facility]) lymph # 1.3 10 1.5-5.0 Below low normal Lymph # [place] ( [facility]) mono # 0.4 10 0.0-0.8 [place] # [place] ([facility]) baso # 0.0 10 0.0-0.2 Baso # [place] ([facility]) eos # 0.0 10 0.0-0.5 Eos # [place] ([facility]) ID Date Data Source [id number] 07/30/2020 01:48:00 PM EDT [facility]) Name Value Range Interpretation Code Description Data Amy rce(s) Supporting Document(s) lipase 35 U/L 73-393 Below low normal Lipase [place] ( [facility]) ID Date Data Source [id number] 07/30/2020 01:48:00 PM EDT [facility]) Name Value Range Interpretation Code Description Data Amy rce(s) Supporting Document(s) glucose, fasting 90 mg/dL 70-100 Glucose, Fasting AT [facility] ([facility]) creatinine for GFR 1.03 mg/dL 0.70-1.30 Creatinine for GF R [place] ([facility]) blood urea nitrogen 9 mg/dL 7-18 Blood Urea Nitro gen [place] ([facility]) glomerular filtration rate > 60.0 >60 Glomerula r Filtration Rate [place] ([facility]) sodium level 137 mEq/L 136-145 Sodium Level [place] (No [facility]) potassium serum 4.9 mEq/L 3.5-5.1 Potassium Serum ATH NA ([facility]) chloride level 107 mEq/L 98-107 Chloride Level [place] ([facility]) carbon dioxide level 24 mEq/L 21-32 Carbon Dioxide Level [place] ([facility]) anion gap 6 mEq/L 8-16 Below low normal Anion Gap [place] ( [facility]) calcium level 10.0 mg/dL 8.5-10.1 Calcium Level [place] ( [facility]) ID Date Data Source [id number] 07/30/2020 01:48:00 PM EDT [place] ([facility]) Name Value Range Interpretation Code Description Data Amy rce(s) Supporting Document(s) AST/SGOT 37 U/L 7-37 AST/SGOT [place] ([facility]) ALT/SGPT 17 U/L 12-78 ALT/SGPT [place] ([facility]) alkaline phosphatase 49 U/L 45-117 Alkaline Phosph atase [place] ([facility]) bilirubin,total 1.1 mg/dL 0.2-1.0 Above high normal Bilirubin,tot al [facility] ([facility]) bilirubin,direct 0.2 mg/dL 0.0-0.2 Bilirubin,direct AT [facility] ([facility]) total protein 8.5 gm/dL 6.4-8.2 Above high normal Total Protein A [facility] ([facility]) albumin 5.5 gm/dL 3.2-5.2 Above high normal Albumin [place] ([facility]) albumin/globulin ratio Albumin/globu maría Ratio [facility] ([facility]) ID Date Data Source [id number] 07/30/2020 01:48:00 PM EDT [facility] ([facility]) Name Value Range Interpretation Code Description Data Amy rce(s) Supporting Document(s) white blood count 7.2 10 4.0-10.0 White Blood Count [facility] ([facility]) red blood count 5.72 10 4.30-6.10 Red Blood Count [facility] ([facility]) hemoglobin 15.6 g/dL 13.5-17.5 Hemoglobin [facility] ([facility]) hematocrit 44.8 % 42.0-52.0 Hematocrit [facility] ([facility]) mean corpuscular volume 78.3 fL 80.0-96.0 Below low normal Mean Corpuscular Volume [facility] ([facility]) mean corpuscular hemoglobin 27.3 pg 27.0-33.0 Mean Cor puscular Hemoglobin [facility] ([facility]) mean corpuscular HGB conc 34.8 g/dL 32.0-36.5 Mean Corpu scular HGB Conc [facility] ([facility]) red cell distribution width 13.2 % 11.5-14.5 Red Cell Distribution Width [facility] ([facility]) platelet count, automated 115 10 150-450 Below low va l Platelet Count, Automated [facility] ([facility]) lymph % 17.5 % 24.0-44.0 Below low normal Lymph % [place] ( [facility]) neutrophils % 75.7 % 36.0-66.0 Above high normal Neutrophils % A [facility] ([facility]) eos % 0.4 % 0.0-3.0 Eos % [facility] ([facility]) mono % 5.4 % 2.0-8.0 [place] % [facility] ([facility]) baso % 0.4 % 0.0-1.0 Baso % [place] ([facility]) immature granulocyte % 0.6 % 0-3.0 Immature Gran ulocyte % [place] ([facility]) nucleated red blood cell % 0.0 % 0-0 Nucleated Red Blood Cell % [facility] ([facility]) neutrophils # 5.4 10 1.5-8.5 Neutrophils # [place] ( [facility]) lymph # 1.3 10 1.5-5.0 Below low normal Lymph # [facility] ( [facility]) mono # 0.4 10 0.0-0.8 [place] # [facility] ([facility]) eos # 0.0 10 0.0-0.5 Eos # [facility] ([facility]) baso # 0.0 10 0.0-0.2 Baso # [facility] ([facility]) ID Date Data Source [id number] 07/30/2020 01:48:00 PM EDT [facility] ([facility]) Name Value Range Interpretation Code Description Data Amy rce(s) Supporting Document(s) lipase 35 U/L 73-393 Below low normal Lipase [facility] ( [facility]) ID Date Data Source [id number] 07/30/2020 01:48:00 PM EDT [facility] ([facility]) Name Value Range Interpretation Code Description Data Amy rce(s) Supporting Document(s) glucose, fasting 90 mg/dL 70-100 Glucose, Fasting AT [facility]) blood urea nitrogen 9 mg/dL 7-18 Blood Urea Nitro gen [place] ([facility]) creatinine for GFR 1.03 mg/dL 0.70-1.30 Creatinine for GF R [place] ([facility]) glomerular filtration rate > 60.0 >60 Glomerula r Filtration Rate [facility] ([facility]) sodium level 137 mEq/L 136-145 Sodium Level [facility] ([facility]) potassium serum 4.9 mEq/L 3.5-5.1 Potassium Serum [facility] NA ([facility]) chloride level 107 mEq/L 98-107 Chloride Level [place] ([facility]) carbon dioxide level 24 mEq/L 21-32 Carbon Dioxide Level [place] ([facility]) anion gap 6 mEq/L 8-16 Below low normal Anion Gap [facility] ( [facility]) calcium level 10.0 mg/dL 8.5-10.1 Calcium Level [place] ( [facility]) ID Date Data Source [id number] 07/30/2020 01:48:00 PM EDT [facility]) Name Value Range Interpretation Code Description Data Amy rce(s) Supporting Document(s) AST/SGOT 37 U/L 7-37 AST/SGOT [facility] ([facility]) ALT/SGPT 17 U/L 12-78 ALT/SGPT [place] ([facility]) bilirubin,total 1.1 mg/dL 0.2-1.0 Above high normal Bilirubin,tot al [facility] ([facility]) alkaline phosphatase 49 U/L 45-117 Alkaline Phosph atase [facility] ([facility]) bilirubin,direct 0.2 mg/dL 0.0-0.2 Bilirubin,direct AT [facility] ([facility]) total protein 8.5 gm/dL 6.4-8.2 Above high normal Total Protein A [facility] ([facility]) albumin 5.5 gm/dL 3.2-5.2 Above high normal Albumin [place] ([facility]) albumin/globulin ratio Albumin/globu maría Ratio [place] ([facility]) ID Date Data Source [id number] 07/30/2020 01:48:00 PM EDT [place] ([facility]) Name Value Range Interpretation Code Description Data Amy rce(s) Supporting Document(s) white blood count 7.2 10 4.0-10.0 White Blood Count [place] ([facility]) red blood count 5.72 10 4.30-6.10 Red Blood Count [facility] ([facility]) hemoglobin 15.6 g/dL 13.5-17.5 Hemoglobin [place] ([facility]) hematocrit 44.8 % 42.0-52.0 Hematocrit [place] ([facility]) mean corpuscular hemoglobin 27.3 pg 27.0-33.0 Mean Cor puscular Hemoglobin [facility] ([facility]) mean corpuscular volume 78.3 fL 80.0-96.0 Below low normal Mean Corpuscular Volume [place] ([facility]) mean corpuscular HGB conc 34.8 g/dL 32.0-36.5 Mean Corpu scular HGB Conc [place] ([facility]) red cell distribution width 13.2 % 11.5-14.5 Red Cell Distribution Width [place] ([facility]) platelet count, automated 115 10 150-450 Below low va l Platelet Count, Automated [facility] ([facility]) neutrophils % 75.7 % 36.0-66.0 Above high normal Neutrophils % A [facility] ([facility]) mono % 5.4 % 2.0-8.0 [place] % [facility] ([facility]) lymph % 17.5 % 24.0-44.0 Below low normal Lymph % [facility] ( [facility]) eos % 0.4 % 0.0-3.0 Eos % [facility] ([facility]) baso % 0.4 % 0.0-1.0 Baso % [facility] ([facility]) immature granulocyte % 0.6 % 0-3.0 Immature Gran ulocyte % [facility] ([facility]) nucleated red blood cell % 0.0 % 0-0 Nucleated Red Blood Cell % [facility] ([facility]) lymph # 1.3 10 1.5-5.0 Below low normal Lymph # [facility] ( [facility]) neutrophils # 5.4 10 1.5-8.5 Neutrophils # [place] ( [facility]) mono # 0.4 10 0.0-0.8 [place] # [facility] ([facility]) eos # 0.0 10 0.0-0.5 Eos # [facility] ([facility]) baso # 0.0 10 0.0-0.2 Baso # [facility] ([facility]) ID Date Data Source [id number] 07/30/2020 01:48:00 PM EDT [place] ([facility]) Name Value Range Interpretation Code Description Data Amy rce(s) Supporting Document(s) lipase 35 U/L 73-393 Below low normal Lipase [place] ( [facility]) ID Date Data Source [id number] 07/30/2020 01:48:00 PM EDT [place] ([facility]) Name Value Range Interpretation Code Description Data Amy rce(s) Supporting Document(s) glucose, fasting 90 mg/dL 70-100 Glucose, Fasting AT [facility] ([facility]) blood urea nitrogen 9 mg/dL 7-18 Blood Urea Nitro gen [place] ([facility]) creatinine for GFR 1.03 mg/dL 0.70-1.30 Creatinine for GF R [facility] ([facility]) glomerular filtration rate > 60.0 >60 Glomerula r Filtration Rate [facility] ([facility]) sodium level 137 mEq/L 136-145 Sodium Level [facility] ([facility]) chloride level 107 mEq/L 98-107 Chloride Level [facility] ([facility]) potassium serum 4.9 mEq/L 3.5-5.1 Potassium Serum [facility] NA ([facility]) carbon dioxide level 24 mEq/L 21-32 Carbon Dioxide Level [facility] ([facility]) anion gap 6 mEq/L 8-16 Below low normal Anion Gap [facility] ( [facility]) calcium level 10.0 mg/dL 8.5-10.1 Calcium Level [facility] ( [facility]) ID Date Data Source [id number] 07/30/2020 01:48:00 PM EDT [facility] ([facility]) Name Value Range Interpretation Code Description Data Amy rce(s) Supporting Document(s) AST/SGOT 37 U/L 7-37 AST/SGOT [facility] ([facility]) ALT/SGPT 17 U/L 12-78 ALT/SGPT [place] ([facility]) alkaline phosphatase 49 U/L 45-117 Alkaline Phosph atase [place] ([facility]) bilirubin,total 1.1 mg/dL 0.2-1.0 Above high normal Bilirubin,tot al [facility]) bilirubin,direct 0.2 mg/dL 0.0-0.2 Bilirubin,direct AT [facility]) total protein 8.5 gm/dL 6.4-8.2 Above high normal Total Protein A [facility]) albumin 5.5 gm/dL 3.2-5.2 Above high normal Albumin [place] ([facility]) albumin/globulin ratio Albumin/globu maría Ratio [place] ([facility]) ID Date Data Source [id number] 07/30/2020 01:48:00 PM EDT [place] ([facility]) Name Value Range Interpretation Code Description Data Amy rce(s) Supporting Document(s) white blood count 7.2 10 4.0-10.0 White Blood Count [facility] ([facility]) red blood count 5.72 10 4.30-6.10 Red Blood Count [facility] NA ([facility]) hemoglobin 15.6 g/dL 13.5-17.5 Hemoglobin [facility] ([facility]) mean corpuscular volume 78.3 fL 80.0-96.0 Below low normal Mean Corpuscular Volume [facility] ([facility]) hematocrit 44.8 % 42.0-52.0 Hematocrit [facility] ([facility]) mean corpuscular hemoglobin 27.3 pg 27.0-33.0 Mean Cor puscular Hemoglobin [facility] ([facility]) mean corpuscular HGB conc 34.8 g/dL 32.0-36.5 Mean Corpu scular HGB Conc [facility] ([facility]) red cell distribution width 13.2 % 11.5-14.5 Red Cell Distribution Width [facility] ([facility]) platelet count, automated 115 10 150-450 Below low va l Platelet Count, Automated [facility] ([facility]) neutrophils % 75.7 % 36.0-66.0 Above high normal Neutrophils % A [facility] ([facility]) lymph % 17.5 % 24.0-44.0 Below low normal Lymph % [facility] ( [facility]) mono % 5.4 % 2.0-8.0 [place] % [facility] ([facility]) eos % 0.4 % 0.0-3.0 Eos % [facility] ([facility]) baso % 0.4 % 0.0-1.0 Baso % [facility] ([facility]) nucleated red blood cell % 0.0 % 0-0 Nucleated Red Blood Cell % [facility] ([facility]) immature granulocyte % 0.6 % 0-3.0 Immature Gran ulocyte % [facility] ([facility]) neutrophils # 5.4 10 1.5-8.5 Neutrophils # [facility] ( [facility]) mono # 0.4 10 0.0-0.8 [place] # [facility] ([facility]) lymph # 1.3 10 1.5-5.0 Below low normal Lymph # [facility] ( [facility]) eos # 0.0 10 0.0-0.5 Eos # [facility] ([facility]) baso # 0.0 10 0.0-0.2 Baso # [facility] ([facility]) ID Date Data Source [id number] 07/30/2020 01:48:00 PM EDT [place] ([facility]) Name Value Range Interpretation Code Description Data Amy rce(s) Supporting Document(s) lipase 35 U/L 73-393 Below low normal Lipase [place] ( [facility]) ID Date Data Source [id number] 07/30/2020 01:48:00 PM EDT [place] ([facility]) Name Value Range Interpretation Code Description Data Amy rce(s) Supporting Document(s) glucose, fasting 90 mg/dL 70-100 Glucose, Fasting AT [facility]) blood urea nitrogen 9 mg/dL 7-18 Blood Urea Nitro gen [place] ([facility]) creatinine for GFR 1.03 mg/dL 0.70-1.30 Creatinine for GF R [place] ([facility]) sodium level 137 mEq/L 136-145 Sodium Level [facility] ([facility]) glomerular filtration rate > 60.0 >60 Glomerula r Filtration Rate [facility] ([facility]) potassium serum 4.9 mEq/L 3.5-5.1 Potassium Serum [facility] NA ([facility]) carbon dioxide level 24 mEq/L 21-32 Carbon Dioxide Level [facility] ([facility]) chloride level 107 mEq/L 98-107 Chloride Level [place] ([facility]) anion gap 6 mEq/L 8-16 Below low normal Anion Gap [facility] ( [facility]) calcium level 10.0 mg/dL 8.5-10.1 Calcium Level [facility]) ID Date Data Source [id number] 07/30/2020 01:48:00 PM EDT [facility] ([facility]) Name Value Range Interpretation Code Description Data Amy rce(s) Supporting Document(s) AST/SGOT 37 U/L 7-37 AST/SGOT [facility] ([facility]) ALT/SGPT 17 U/L 12-78 ALT/SGPT [facility] ([facility]) alkaline phosphatase 49 U/L 45-117 Alkaline Phosph atase [facility] ([facility]) bilirubin,total 1.1 mg/dL 0.2-1.0 Above high normal Bilirubin,tot al [facility] ([facility]) bilirubin,direct 0.2 mg/dL 0.0-0.2 Bilirubin,direct AT [facility]) total protein 8.5 gm/dL 6.4-8.2 Above high normal Total Protein A [facility] ([facility]) albumin/globulin ratio Albumin/globu maría Ratio [facility] ([facility]) albumin 5.5 gm/dL 3.2-5.2 Above high normal Albumin [place] ([facility]) ID Date Data Source [id number] 07/30/2020 01:48:00 PM EDT [facility] ([facility]) Name Value Range Interpretation Code Description Data Amy rce(s) Supporting Document(s) white blood count 7.2 10 4.0-10.0 White Blood Count [facility] ([facility]) red blood count 5.72 10 4.30-6.10 Red Blood Count [facility] NA ([facility]) hemoglobin 15.6 g/dL 13.5-17.5 Hemoglobin [facility] ([facility]) hematocrit 44.8 % 42.0-52.0 Hematocrit [facility] ([facility]) mean corpuscular hemoglobin 27.3 pg 27.0-33.0 Mean Cor puscular Hemoglobin [place] ([facility]) mean corpuscular volume 78.3 fL 80.0-96.0 Below low normal Mean Corpuscular Volume [facility] ([facility]) mean corpuscular HGB conc 34.8 g/dL 32.0-36.5 Mean Corpu scular HGB Conc [place] ([facility]) red cell distribution width 13.2 % 11.5-14.5 Red Cell Distribution Width [facility] ([facility]) platelet count, automated 115 10 150-450 Below low va l Platelet Count, Automated [facility] ([facility]) neutrophils % 75.7 % 36.0-66.0 Above high normal Neutrophils % A [facility] ([facility]) mono % 5.4 % 2.0-8.0 [place] % [place] ([facility]) lymph % 17.5 % 24.0-44.0 Below low normal Lymph % [place] ( [facility]) eos % 0.4 % 0.0-3.0 Eos % [place] ([facility]) baso % 0.4 % 0.0-1.0 Baso % [place] ([facility]) immature granulocyte % 0.6 % 0-3.0 Immature Gran ulocyte % [place] ([facility]) nucleated red blood cell % 0.0 % 0-0 Nucleated Red Blood Cell % [place] ([facility]) neutrophils # 5.4 10 1.5-8.5 Neutrophils # [place] ( [facility]) mono # 0.4 10 0.0-0.8 [place] # [facility] ([facility]) lymph # 1.3 10 1.5-5.0 Below low normal Lymph # [facility] ( [facility]) eos # 0.0 10 0.0-0.5 Eos # [facility] ([facility]) baso # 0.0 10 0.0-0.2 Baso # [place] ([facility]) ID Date Data Source [id number] 07/30/2020 01:35:00 PM EDT [place] ([facility]) Name Value Range Interpretation Code Description Data Amy rce(s) Supporting Document(s) appearance, urine rfx clear clear Appearance, Ur ine Rfx [place] ([facility]) color, urine rfx straw yellow Color, Urine Rfx AT [facility] ([facility]) pH,urine rfx 6.0 units 5.0-9.0 pH,urine Rfx [facility] (No [facility]) protein, urine auto rfx negative negative Protein, Uri ne Auto Rfx [place] ([facility]) specific gravity ur auto rfx 1.002-1.035 Specif ic [place] Ur Auto Rfx [facility] ([facility]) glucose, urine (UA) auto rfx negative negative Glucose , Urine (UA) Auto Rfx [facility] ([facility]) ketone, urine auto rfx negative negative Ketone, Urine Auto Rfx [place] ([facility]) urobilinogen, urine auto rfx 0.2 mg/dL 0.0-2.0 Urobili nogen, Urine Auto Rfx [place] ([facility]) nitrite, urine auto rfx negative negative Nitrite, Uri ne Auto Rfx [place] ([facility]) bilirubin, urine auto rfx negative negative Bilirubin, Urine Auto Rfx [facility] ([facility]) leukocyte esterase ur auto rfx negative negative Leukocyte Esterase Ur Auto Rfx [place] ([facility]) blood, urine blood rfx negative negative Blood, Urine Blood Rfx [place] ([facility]) WBC, urine auto rfx 0 /hpf 0-3 WBC, Urine Auto Rfx [facility] ([facility]) RBC, urine auto rfx 1 /hpf 0-3 RBC, Urine Auto Rfx [facility] ([facility]) bacteria, urine auto rfx negative negative Bacteria, U rine Auto Rfx [facility] ([facility]) squam epithelial cell ur aurfx 0 /hpf 0-6 Squam Epithelial Cell Ur Aurfx [facility] ([facility]) hyaline cast, urine auto rfx 0 /lpf 0-1 Hyaline Cast, Urine Auto Rfx [place] ([facility]) ID Date Data Source [id number] 07/30/2020 01:35:00 PM EDT [place] ([facility]) Name Value Range Interpretation Code Description Data Amy rce(s) Supporting Document(s) appearance, urine rfx clear clear Appearance, Ur ine Rfx [facility] ([facility]) color, urine rfx straw yellow Color, Urine Rfx AT [facility] ([facility]) pH,urine rfx 6.0 units 5.0-9.0 pH,urine Rfx [facility] specific gravity ur auto rfx 1.002-1.035 Specif ic [place] Ur Auto Rfx [facility] ([facility]) protein, urine auto rfx negative negative Protein, Uri ne Auto Rfx [facility] ([facility]) glucose, urine (UA) auto rfx negative negative Glucose , Urine (UA) Auto Rfx [place] ([facility]) ketone, urine auto rfx negative negative Ketone, Urine Auto Rfx [place] ([facility]) urobilinogen, urine auto rfx 0.2 mg/dL 0.0-2.0 Urobili nogen, Urine Auto Rfx [place] ([facility]) bilirubin, urine auto rfx negative negative Bilirubin, Urine Auto Rfx [facility] ([facility]) nitrite, urine auto rfx negative negative Nitrite, Uri ne Auto Rfx [place] ([facility]) leukocyte esterase ur auto rfx negative negative Leukocyte Esterase Ur Auto Rfx [place] ([facility]) blood, urine blood rfx negative negative Blood, Urine Blood Rfx [place] ([facility]) WBC, urine auto rfx 0 /hpf 0-3 WBC, Urine Auto Rfx [place] ([facility]) RBC, urine auto rfx 1 /hpf 0-3 RBC, Urine Auto Rfx [facility] ([facility]) bacteria, urine auto rfx negative negative Bacteria, U rine Auto Rfx [place] ([facility]) hyaline cast, urine auto rfx 0 /lpf 0-1 Hyaline Cast, Urine Auto Rfx [place] ([facility]) squam epithelial cell ur aurfx 0 /hpf 0-6 Squam Epithelial Cell Ur Aurfx [place] ([facility]) ID Date Data Source [id number] 07/30/2020 01:35:00 PM EDT [facility]) Name Value Range Interpretation Code Description Data Amy rce(s) Supporting Document(s) appearance, urine rfx clear clear Appearance, Ur ine Rfx [facility] ([facility]) color, urine rfx straw yellow Color, Urine Rfx AT [facility] ([facility]) pH,urine rfx 6.0 units 5.0-9.0 pH,urine Rfx [facility] (No [facility]) specific gravity ur auto rfx 1.002-1.035 Specif ic [place] Ur Auto Rfx [facility] ([facility]) protein, urine auto rfx negative negative Protein, Uri ne Auto Rfx [place] ([facility]) glucose, urine (UA) auto rfx negative negative Glucose , Urine (UA) Auto Rfx [facility] ([facility]) ketone, urine auto rfx negative negative Ketone, Urine Auto Rfx [place] ([facility]) urobilinogen, urine auto rfx 0.2 mg/dL 0.0-2.0 Urobili nogen, Urine Auto Rfx [facility] ([facility]) bilirubin, urine auto rfx negative negative Bilirubin, Urine Auto Rfx [facility] ([facility]) nitrite, urine auto rfx negative negative Nitrite, Uri ne Auto Rfx [facility] ([facility]) leukocyte esterase ur auto rfx negative negative Leukocyte Esterase Ur Auto Rfx [facility] ([facility]) blood, urine blood rfx negative negative Blood, Urine Blood Rfx [place] ([facility]) WBC, urine auto rfx 0 /hpf 0-3 WBC, Urine Auto Rfx [facility] ([facility]) bacteria, urine auto rfx negative negative Bacteria, U rine Auto Rfx [facility] ([facility]) RBC, urine auto rfx 1 /hpf 0-3 RBC, Urine Auto Rfx [facility] ([facility]) squam epithelial cell ur aurfx 0 /hpf 0-6 Squam Epithelial Cell Ur Aurfx [facility] ([facility]) hyaline cast, urine auto rfx 0 /lpf 0-1 Hyaline Cast, Urine Auto Rfx [facility] ([facility]) ID Date Data Source [id number] 07/30/2020 01:35:00 PM EDT [place] ([facility]) Name Value Range Interpretation Code Description Data Amy rce(s) Supporting Document(s) appearance, urine rfx clear clear Appearance, Ur ine Rfx [facility] ([facility]) color, urine rfx straw yellow Color, Urine Rfx AT [facility] ([facility]) pH,urine rfx 6.0 units 5.0-9.0 pH,urine Rfx [facility] specific gravity ur auto rfx 1.002-1.035 Specif ic [place] Ur Auto Rfx [facility] ([facility]) protein, urine auto rfx negative negative Protein, Uri ne Auto Rfx [place] ([facility]) glucose, urine (UA) auto rfx negative negative Glucose , Urine (UA) Auto Rfx [place] ([facility]) ketone, urine auto rfx negative negative Ketone, Urine Auto Rfx [place] ([facility]) urobilinogen, urine auto rfx 0.2 mg/dL 0.0-2.0 Urobili nogen, Urine Auto Rfx [place] ([facility]) bilirubin, urine auto rfx negative negative Bilirubin, Urine Auto Rfx [place] ([facility]) nitrite, urine auto rfx negative negative Nitrite, Uri ne Auto Rfx [place] ([facility]) leukocyte esterase ur auto rfx negative negative Leukocyte Esterase Ur Auto Rfx [place] ([facility]) blood, urine blood rfx negative negative Blood, Urine Blood Rfx [facility] ([facility]) WBC, urine auto rfx 0 /hpf 0-3 WBC, Urine Auto Rfx [facility] ([facility]) RBC, urine auto rfx 1 /hpf 0-3 RBC, Urine Auto Rfx [facility] ([facility]) bacteria, urine auto rfx negative negative Bacteria, U rine Auto Rfx [place] ([facility]) squam epithelial cell ur aurfx 0 /hpf 0-6 Squam Epithelial Cell Ur Aurfx [place] ([facility]) hyaline cast, urine auto rfx 0 /lpf 0-1 Hyaline Cast, Urine Auto Rfx [facility] ([facility]) ID Date Data Source [id number] 07/30/2020 01:35:00 PM EDT [place] ([facility]) Name Value Range Interpretation Code Description Data Amy rce(s) Supporting Document(s) appearance, urine rfx clear clear Appearance, Ur ine Rfx [place] ([facility]) pH,urine rfx 6.0 units 5.0-9.0 pH,urine Rfx [facility] (No [facility]) color, urine rfx straw yellow Color, Urine Rfx AT [facility] ([facility]) specific gravity ur auto rfx 1.002-1.035 Specif ic [place] Ur Auto Rfx [place] ([facility]) protein, urine auto rfx negative negative Protein, Uri ne Auto Rfx [place] ([facility]) glucose, urine (UA) auto rfx negative negative Glucose , Urine (UA) Auto Rfx [place] ([facility]) ketone, urine auto rfx negative negative Ketone, Urine Auto Rfx [place] ([facility]) urobilinogen, urine auto rfx 0.2 mg/dL 0.0-2.0 Urobili nogen, Urine Auto Rfx [place] ([facility]) bilirubin, urine auto rfx negative negative Bilirubin, Urine Auto Rfx [place] ([facility]) nitrite, urine auto rfx negative negative Nitrite, Uri ne Auto Rfx [place] ([facility]) blood, urine blood rfx negative negative Blood, Urine Blood Rfx [place] ([facility]) leukocyte esterase ur auto rfx negative negative Leukocyte Esterase Ur Auto Rfx [place] ([facility]) WBC, urine auto rfx 0 /hpf 0-3 WBC, Urine Auto Rfx [place] ([facility]) RBC, urine auto rfx 1 /hpf 0-3 RBC, Urine Auto Rfx [place] ([facility]) bacteria, urine auto rfx negative negative Bacteria, U rine Auto Rfx [place] ([facility]) squam epithelial cell ur aurfx 0 /hpf 0-6 Squam Epithelial Cell Ur Aurfx [place] ([facility]) hyaline cast, urine auto rfx 0 /lpf 0-1 Hyaline Cast, Urine Auto Rfx [place] ([facility]) ID Date Data Source [id number] 07/30/2020 01:35:00 PM EDT [place] ([facility]) Name Value Range Interpretation Code Description Data Amy rce(s) Supporting Document(s) appearance, urine rfx clear clear Appearance, Ur ine Rfx [place] ([facility]) color, urine rfx straw yellow Color, Urine Rfx AT [place] ([facility]) pH,urine rfx 6.0 units 5.0-9.0 pH,urine Rfx [place] (No [facility]) specific gravity ur auto rfx 1.002-1.035 Specif ic [place] Ur Auto Rfx [place] ([facility]) protein, urine auto rfx negative negative Protein, Uri ne Auto Rfx [place] ([facility]) glucose, urine (UA) auto rfx negative negative Glucose , Urine (UA) Auto Rfx [place] ([facility]) urobilinogen, urine auto rfx 0.2 mg/dL 0.0-2.0 Urobili nogen, Urine Auto Rfx [place] ([facility]) ketone, urine auto rfx negative negative Ketone, Urine Auto Rfx [place] ([facility]) bilirubin, urine auto rfx negative negative Bilirubin, Urine Auto Rfx [place] ([facility]) leukocyte esterase ur auto rfx negative negative Leukocyte Esterase Ur Auto Rfx [place] ([facility]) nitrite, urine auto rfx negative negative Nitrite, Uri ne Auto Rfx [place] ([facility]) blood, urine blood rfx negative negative Blood, Urine Blood Rfx [place] ([facility]) RBC, urine auto rfx 1 /hpf 0-3 RBC, Urine Auto Rfx [place] ([facility]) WBC, urine auto rfx 0 /hpf 0-3 WBC, Urine Auto Rfx [place] ([facility]) bacteria, urine auto rfx negative negative Bacteria, U rine Auto Rfx [place] ([facility]) squam epithelial cell ur aurfx 0 /hpf 0-6 Squam Epithelial Cell Ur Aurfx [place] ([facility]) hyaline cast, urine auto rfx 0 /lpf 0-1 Hyaline Cast, Urine Auto Rfx [place] ([facility]) ID Date Data Source [id number] 07/30/2020 01:35:00 PM EDT [place] ([facility]) Name Value Range Interpretation Code Description Data Amy rce(s) Supporting Document(s) appearance, urine rfx clear clear Appearance, Ur ine Rfx [place] ([facility]) color, urine rfx straw yellow Color, Urine Rfx AT [place] ([facility]) pH,urine rfx 6.0 units 5.0-9.0 pH,urine Rfx [place] (No [facility]) specific gravity ur auto rfx 1.002-1.035 Specif ic [place] Ur Auto Rfx [place] ([facility]) protein, urine auto rfx negative negative Protein, Uri ne Auto Rfx [place] ([facility]) glucose, urine (UA) auto rfx negative negative Glucose , Urine (UA) Auto Rfx [place] ([facility]) ketone, urine auto rfx negative negative Ketone, Urine Auto Rfx [place] ([facility]) urobilinogen, urine auto rfx 0.2 mg/dL 0.0-2.0 Urobili nogen, Urine Auto Rfx [place] ([facility]) bilirubin, urine auto rfx negative negative Bilirubin, Urine Auto Rfx [place] ([facility]) nitrite, urine auto rfx negative negative Nitrite, Uri ne Auto Rfx [place] ([facility]) leukocyte esterase ur auto rfx negative negative Leukocyte Esterase Ur Auto Rfx [place] ([facility]) WBC, urine auto rfx 0 /hpf 0-3 WBC, Urine Auto Rfx [place] ([facility]) blood, urine blood rfx negative negative Blood, Urine Blood Rfx [place] ([facility]) RBC, urine auto rfx 1 /hpf 0-3 RBC, Urine Auto Rfx [place] ([facility]) bacteria, urine auto rfx negative negative Bacteria, U rine Auto Rfx [place] ([facility]) squam epithelial cell ur aurfx 0 /hpf 0-6 Squam Epithelial Cell Ur Aurfx [place] ([facility]) hyaline cast, urine auto rfx 0 /lpf 0-1 Hyaline Cast, Urine Auto Rfx [place] ([facility]) ID Date Data Source [id number] 07/30/2020 01:35:00 PM EDT [place] ([facility]) Name Value Range Interpretation Code Description Data Amy rce(s) Supporting Document(s) appearance, urine rfx clear clear Appearance, Ur ine Rfx [place] ([facility]) color, urine rfx straw yellow Color, Urine Rfx AT [place] ([facility]) pH,urine rfx 6.0 units 5.0-9.0 pH,urine Rfx [place] (No [facility]) protein, urine auto rfx negative negative Protein, Uri ne Auto Rfx [place] ([facility]) specific gravity ur auto rfx 1.002-1.035 Specif ic [place] Ur Auto Rfx [place] ([facility]) glucose, urine (UA) auto rfx negative negative Glucose , Urine (UA) Auto Rfx [place] ([facility]) ketone, urine auto rfx negative negative Ketone, Urine Auto Rfx [place] ([facility]) urobilinogen, urine auto rfx 0.2 mg/dL 0.0-2.0 Urobili nogen, Urine Auto Rfx [place] ([facility]) bilirubin, urine auto rfx negative negative Bilirubin, Urine Auto Rfx [place] ([facility]) leukocyte esterase ur auto rfx negative negative Leukocyte Esterase Ur Auto Rfx [place] ([facility]) nitrite, urine auto rfx negative negative Nitrite, Uri ne Auto Rfx [place] ([facility]) blood, urine blood rfx negative negative Blood, Urine Blood Rfx [place] ([facility]) WBC, urine auto rfx 0 /hpf 0-3 WBC, Urine Auto Rfx [place] ([facility]) RBC, urine auto rfx 1 /hpf 0-3 RBC, Urine Auto Rfx [place] ([facility]) bacteria, urine auto rfx negative negative Bacteria, U rine Auto Rfx [place] ([facility]) squam epithelial cell ur aurfx 0 /hpf 0-6 Squam Epithelial Cell Ur Aurfx [place] ([facility]) hyaline cast, urine auto rfx 0 /lpf 0-1 Hyaline Cast, Urine Auto Rfx [place] ([facility]) ID Date Data Source [id number] 07/30/2020 01:35:00 PM EDT [place] ([facility]) Name Value Range Interpretation Code Description Data Amy rce(s) Supporting Document(s) appearance, urine rfx clear clear Appearance, Ur ine Rfx [place] ([facility]) color, urine rfx straw yellow Color, Urine Rfx [facility] [place] ([facility]) pH,urine rfx 6.0 units 5.0-9.0 pH,urine Rfx [place] (No [facility]) specific gravity ur auto rfx 1.002-1.035 Specif ic [place] Ur Auto Rfx [place] ([facility]) protein, urine auto rfx negative negative Protein, Uri ne Auto Rfx [place] ([facility]) glucose, urine (UA) auto rfx negative negative Glucose , Urine (UA) Auto Rfx [place] ([facility]) ketone, urine auto rfx negative negative Ketone, Urine Auto Rfx [place] ([facility]) bilirubin, urine auto rfx negative negative Bilirubin, Urine Auto Rfx [place] ([facility]) urobilinogen, urine auto rfx 0.2 mg/dL 0.0-2.0 Urobili nogen, Urine Auto Rfx [place] ([facility]) leukocyte esterase ur auto rfx negative negative Leukocyte Esterase Ur Auto Rfx [place] ([facility]) nitrite, urine auto rfx negative negative Nitrite, Uri ne Auto Rfx [place] ([facility]) blood, urine blood rfx negative negative Blood, Urine Blood Rfx [place] ([facility]) WBC, urine auto rfx 0 /hpf 0-3 WBC, Urine Auto Rfx [place] ([facility]) RBC, urine auto rfx 1 /hpf 0-3 RBC, Urine Auto Rfx [place] ([facility]) bacteria, urine auto rfx negative negative Bacteria, U rine Auto Rfx [place] ([facility]) hyaline cast, urine auto rfx 0 /lpf 0-1 Hyaline Cast, Urine Auto Rfx [place] ([facility]) squam epithelial cell ur aurfx 0 /hpf 0-6 Squam Epithelial Cell Ur Aurfx [place] ([facility]) ID Date Data Source [id number] 07/30/2020 01:35:00 PM EDT [place] ([facility]) Name Value Range Interpretation Code Description Data Amy rce(s) Supporting Document(s) appearance, urine rfx clear clear Appearance, Ur ine Rfx [place] ([facility]) color, urine rfx straw yellow Color, Urine Rfx AT [place] ([facility]) pH,urine rfx 6.0 units 5.0-9.0 pH,urine Rfx [place] (No [facility]) specific gravity ur auto rfx 1.002-1.035 Specif ic [place] Ur Auto Rfx [place] ([facility]) protein, urine auto rfx negative negative Protein, Uri ne Auto Rfx [place] ([facility]) glucose, urine (UA) auto rfx negative negative Glucose , Urine (UA) Auto Rfx [place] ([facility]) urobilinogen, urine auto rfx 0.2 mg/dL 0.0-2.0 Urobili nogen, Urine Auto Rfx [place] ([facility]) ketone, urine auto rfx negative negative Ketone, Urine Auto Rfx [place] ([facility]) bilirubin, urine auto rfx negative negative Bilirubin, Urine Auto Rfx [place] ([facility]) nitrite, urine auto rfx negative negative Nitrite, Uri ne Auto Rfx [place] ([facility]) leukocyte esterase ur auto rfx negative negative Leukocyte Esterase Ur Auto Rfx [place] ([facility]) blood, urine blood rfx negative negative Blood, Urine Blood Rfx [place] ([facility]) WBC, urine auto rfx 0 /hpf 0-3 WBC, Urine Auto Rfx [place] ([facility]) RBC, urine auto rfx 1 /hpf 0-3 RBC, Urine Auto Rfx [place] ([facility]) bacteria, urine auto rfx negative negative Bacteria, U rine Auto Rfx [place] ([facility]) squam epithelial cell ur aurfx 0 /hpf 0-6 Squam Epithelial Cell Ur Aurfx [place] ([facility]) hyaline cast, urine auto rfx 0 /lpf 0-1 Hyaline Cast, Urine Auto Rfx [place] ([facility]) ID Date Data Source [id number] 07/30/2020 01:35:00 PM EDT [place] ([facility]) Name Value Range Interpretation Code Description Data Amy rce(s) Supporting Document(s) appearance, urine rfx clear clear Appearance, Ur ine Rfx [place] ([facility]) color, urine rfx straw yellow Color, Urine Rfx AT [place] ([facility]) pH,urine rfx 6.0 units 5.0-9.0 pH,urine Rfx [place] (No [facility]) specific gravity ur auto rfx 1.002-1.035 Specif ic [place] Ur Auto Rfx [place] ([facility]) protein, urine auto rfx negative negative Protein, Uri ne Auto Rfx [place] ([facility]) glucose, urine (UA) auto rfx negative negative Glucose , Urine (UA) Auto Rfx [place] ([facility]) ketone, urine auto rfx negative negative Ketone, Urine Auto Rfx [place] ([facility]) urobilinogen, urine auto rfx 0.2 mg/dL 0.0-2.0 Urobili nogen, Urine Auto Rfx [place] ([facility]) bilirubin, urine auto rfx negative negative Bilirubin, Urine Auto Rfx [place] ([facility]) leukocyte esterase ur auto rfx negative negative Leukocyte Esterase Ur Auto Rfx [place] ([facility]) nitrite, urine auto rfx negative negative Nitrite, Uri ne Auto Rfx [place] ([facility]) blood, urine blood rfx negative negative Blood, Urine Blood Rfx [place] ([facility]) RBC, urine auto rfx 1 /hpf 0-3 RBC, Urine Auto Rfx [place] ([facility]) WBC, urine auto rfx 0 /hpf 0-3 WBC, Urine Auto Rfx [place] ([facility]) bacteria, urine auto rfx negative negative Bacteria, U rine Auto Rfx [place] ([facility]) squam epithelial cell ur aurfx 0 /hpf 0-6 Squam Epithelial Cell Ur Aurfx [place] ([facility]) hyaline cast, urine auto rfx 0 /lpf 0-1 Hyaline Cast, Urine Auto Rfx [place] ([facility]) ID Date Data Source [id number] 07/27/2020 11:42:00 PM EDT [place] ([facility]) Name Value Range Interpretation Code Description Data Amy rce(s) Supporting Document(s) istat HCT 43.0 % 38.0-51.0 Istat HCT [place] ([facility]) istat glucose 124 mg/dL 70-105 Above high normal Istat Glucose A [place] ([facility]) istat sodium 140 mEq/L 136-145 Istat Sodium [place] (No [facility]) istat potassium 3.9 mEq/L 3.5-5.1 Istat Potassium [place] [place] ([facility]) istat Ca++ 4.9 mg/dL 4.5-5.3 Istat Ca++ [place] ([facility]) istat chloride 106 mEq/L 98-109 Istat Chloride [place] ([facility]) istat CO2 23.0 mm/L 23.0-27.0 Istat CO2 [place] ([facility]) istat BUN 10 mg/dL 8-26 Istat BUN [place] ([facility]) istat creatinine 1.0 mg/dL 0.6-1.3 Istat Creatinine AT [facility] ([facility]) ID Date Data Source [id number] 07/27/2020 11:42:00 PM EDT [place] ([facility]) Name Value Range Interpretation Code Description Data Amy rce(s) Supporting Document(s) istat HCT 43.0 % 38.0-51.0 Istat HCT [place] ([facility]) istat glucose 124 mg/dL 70-105 Above high normal Istat Glucose A [facility] ([facility]) istat sodium 140 mEq/L 136-145 Istat Sodium [place] (No [facility]) istat potassium 3.9 mEq/L 3.5-5.1 Istat Potassium [place] ([facility]) istat Ca++ 4.9 mg/dL 4.5-5.3 Istat Ca++ [place] ([facility]) istat chloride 106 mEq/L 98-109 Istat Chloride [place] ([facility]) istat CO2 23.0 mm/L 23.0-27.0 Istat CO2 [place] ([facility]) istat creatinine 1.0 mg/dL 0.6-1.3 Istat Creatinine AT [facility] ([facility]) istat BUN 10 mg/dL 8-26 Istat BUN [place] ([facility]) ID Date Data Source [id number] 07/27/2020 11:42:00 PM EDT [place] ([facility]) Name Value Range Interpretation Code Description Data Amy rce(s) Supporting Document(s) istat HCT 43.0 % 38.0-51.0 Istat HCT [place] ([facility]) istat glucose 124 mg/dL 70-105 Above high normal Istat Glucose A [facility] ([facility]) istat potassium 3.9 mEq/L 3.5-5.1 Istat Potassium [facility] [place] ([facility]) istat sodium 140 mEq/L 136-145 Istat Sodium [place] (No [facility]) istat Ca++ 4.9 mg/dL 4.5-5.3 Istat Ca++ [place] ([facility]) istat chloride 106 mEq/L 98-109 Istat Chloride [place] ([facility]) istat CO2 23.0 mm/L 23.0-27.0 Istat CO2 [place] ([facility]) istat BUN 10 mg/dL 8-26 Istat BUN [place] ([facility]) istat creatinine 1.0 mg/dL 0.6-1.3 Istat Creatinine AT [facility]) ID Date Data Source [id number] 07/27/2020 11:42:00 PM EDT [facility]) Name Value Range Interpretation Code Description Data Amy rce(s) Supporting Document(s) istat HCT 43.0 % 38.0-51.0 Istat HCT [place] ([facility]) istat glucose 124 mg/dL 70-105 Above high normal Istat Glucose A [facility] ([facility]) istat sodium 140 mEq/L 136-145 Istat Sodium [place] ([facility]) istat potassium 3.9 mEq/L 3.5-5.1 Istat Potassium [facility] [place] ([facility]) istat Ca++ 4.9 mg/dL 4.5-5.3 Istat Ca++ [place] ([facility]) istat chloride 106 mEq/L 98-109 Istat Chloride [place] ([facility]) istat CO2 23.0 mm/L 23.0-27.0 Istat CO2 [place] ([facility]) istat creatinine 1.0 mg/dL 0.6-1.3 Istat Creatinine AT [facility] ([facility]) istat BUN 10 mg/dL 8-26 Istat BUN [place] ([facility]) ID Date Data Source [id number] 07/27/2020 11:42:00 PM EDT [place] ([facility]) Name Value Range Interpretation Code Description Data Amy rce(s) Supporting Document(s) istat glucose 124 mg/dL 70-105 Above high normal Istat Glucose A [facility] ([facility]) istat HCT 43.0 % 38.0-51.0 Istat HCT [place] ([facility]) istat potassium 3.9 mEq/L 3.5-5.1 Istat Potassium [facility] [place] ([facility]) istat sodium 140 mEq/L 136-145 Istat Sodium [place] (No [facility]) istat chloride 106 mEq/L 98-109 Istat Chloride [place] ([facility]) istat Ca++ 4.9 mg/dL 4.5-5.3 Istat Ca++ [place] ([facility]) istat CO2 23.0 mm/L 23.0-27.0 Istat CO2 [place] ([facility]) istat creatinine 1.0 mg/dL 0.6-1.3 Istat Creatinine AT [facility]) istat BUN 10 mg/dL 8-26 Istat BUN [place] ([facility]) ID Date Data Source [id number] 07/27/2020 11:42:00 PM EDT [place] ([facility]) Name Value Range Interpretation Code Description Data Amy rce(s) Supporting Document(s) istat HCT 43.0 % 38.0-51.0 Istat HCT [place] ([facility]) istat sodium 140 mEq/L 136-145 Istat Sodium [place] (No [facility]) istat glucose 124 mg/dL 70-105 Above high normal Istat Glucose A [place] ([facility]) istat potassium 3.9 mEq/L 3.5-5.1 Istat Potassium [facility] [place] ([facility]) istat chloride 106 mEq/L 98-109 Istat Chloride [place] ([facility]) istat Ca++ 4.9 mg/dL 4.5-5.3 Istat Ca++ [place] ([facility]) istat CO2 23.0 mm/L 23.0-27.0 Istat CO2 [place] ([facility]) istat BUN 10 mg/dL 8-26 Istat BUN [place] ([facility]) istat creatinine 1.0 mg/dL 0.6-1.3 Istat Creatinine AT [facility]) ID Date Data Source [id number] 07/27/2020 11:42:00 PM EDT [place] ([facility]) Name Value Range Interpretation Code Description Data Amy rce(s) Supporting Document(s) istat HCT 43.0 % 38.0-51.0 Istat HCT [place] ([facility]) istat glucose 124 mg/dL 70-105 Above high normal Istat Glucose A [facility]) istat potassium 3.9 mEq/L 3.5-5.1 Istat Potassium [facility] [place] ([facility]) istat sodium 140 mEq/L 136-145 Istat Sodium [place] ([facility]) istat Ca++ 4.9 mg/dL 4.5-5.3 Istat Ca++ [place] ([facility]) istat chloride 106 mEq/L 98-109 Istat Chloride [place] ([facility]) istat CO2 23.0 mm/L 23.0-27.0 Istat CO2 [place] ([facility]) istat creatinine 1.0 mg/dL 0.6-1.3 Istat Creatinine AT [facility] ([facility]) istat BUN 10 mg/dL 8-26 Istat BUN [place] ([facility]) ID Date Data Source [id number] 07/27/2020 11:42:00 PM EDT [place] ([facility]) Name Value Range Interpretation Code Description Data Amy rce(s) Supporting Document(s) istat HCT 43.0 % 38.0-51.0 Istat HCT [place] ([facility]) istat sodium 140 mEq/L 136-145 Istat Sodium [place] (No [facility]) istat glucose 124 mg/dL 70-105 Above high normal Istat Glucose A [facility] ([facility]) istat potassium 3.9 mEq/L 3.5-5.1 Istat Potassium [facility] [place] ([facility]) istat chloride 106 mEq/L 98-109 Istat Chloride [place] ([facility]) istat Ca++ 4.9 mg/dL 4.5-5.3 Istat Ca++ [place] ([facility]) istat CO2 23.0 mm/L 23.0-27.0 Istat CO2 [place] ([facility]) istat creatinine 1.0 mg/dL 0.6-1.3 Istat Creatinine AT [facility]) istat BUN 10 mg/dL 8-26 Istat BUN [place] ([facility]) ID Date Data Source [id number] 07/27/2020 11:42:00 PM EDT [place] ([facility]) Name Value Range Interpretation Code Description Data Amy rce(s) Supporting Document(s) istat HCT 43.0 % 38.0-51.0 Istat HCT [place] ([facility]) istat glucose 124 mg/dL 70-105 Above high normal Istat Glucose A [facility] ([facility]) istat sodium 140 mEq/L 136-145 Istat Sodium [place] ([facility]) istat Ca++ 4.9 mg/dL 4.5-5.3 Istat Ca++ [place] ([facility]) istat potassium 3.9 mEq/L 3.5-5.1 Istat Potassium [facility] ([facility]) istat chloride 106 mEq/L 98-109 Istat Chloride [place] ([facility]) istat CO2 23.0 mm/L 23.0-27.0 Istat CO2 [place] ([facility]) istat BUN 10 mg/dL 8-26 Istat BUN [place] ([facility]) istat creatinine 1.0 mg/dL 0.6-1.3 Istat Creatinine AT [facility]) ID Date Data Source [id number] 07/27/2020 11:42:00 PM EDT [facility]) Name Value Range Interpretation Code Description Data Amy rce(s) Supporting Document(s) istat HCT 43.0 % 38.0-51.0 Istat HCT [place] ([facility]) istat glucose 124 mg/dL 70-105 Above high normal Istat Glucose A [facility]) istat sodium 140 mEq/L 136-145 Istat Sodium [place] ([facility]) istat potassium 3.9 mEq/L 3.5-5.1 Istat Potassium [facility] ([facility]) istat Ca++ 4.9 mg/dL 4.5-5.3 Istat Ca++ [place] ([facility]) istat chloride 106 mEq/L 98-109 Istat Chloride [place] ([facility]) istat CO2 23.0 mm/L 23.0-27.0 Istat CO2 [place] ([facility]) istat BUN 10 mg/dL 8-26 Istat BUN [place] ([facility]) istat creatinine 1.0 mg/dL 0.6-1.3 Istat Creatinine AT [facility]) ID Date Data Source [id number] 07/27/2020 11:42:00 PM EDT [facility]) Name Value Range Interpretation Code Description Data Amy rce(s) Supporting Document(s) istat glucose 124 mg/dL 70-105 Above high normal Istat Glucose A [facility]) istat HCT 43.0 % 38.0-51.0 Istat HCT [place] ([facility]) istat sodium 140 mEq/L 136-145 Istat Sodium [place] (No [facility]) istat potassium 3.9 mEq/L 3.5-5.1 Istat Potassium [facility] ([facility]) istat Ca++ 4.9 mg/dL 4.5-5.3 Istat Ca++ [place] ([facility]) istat chloride 106 mEq/L 98-109 Istat Chloride [place] ([facility]) istat BUN 10 mg/dL 8-26 Istat BUN [place] ([facility]) istat CO2 23.0 mm/L 23.0-27.0 Istat CO2 [place] ([facility]) istat creatinine 1.0 mg/dL 0.6-1.3 Istat Creatinine AT [facility]) ID Date Data Source [id number] 07/27/2020 11:42:00 PM EDT [place] ([facility]) Name Value Range Interpretation Code Description Data Amy rce(s) Supporting Document(s) istat HCT 43.0 % 38.0-51.0 Istat HCT [place] ([facility]) istat sodium 140 mEq/L 136-145 Istat Sodium [place] (No [facility]) istat glucose 124 mg/dL 70-105 Above high normal Istat Glucose A [facility] ([facility]) istat potassium 3.9 mEq/L 3.5-5.1 Istat Potassium [facility] ([facility]) istat Ca++ 4.9 mg/dL 4.5-5.3 Istat Ca++ [place] ([facility]) istat chloride 106 mEq/L 98-109 Istat Chloride [place] ([facility]) istat BUN 10 mg/dL 8-26 Istat BUN [place] ([facility]) istat CO2 23.0 mm/L 23.0-27.0 Istat CO2 [place] ([facility]) istat creatinine 1.0 mg/dL 0.6-1.3 Istat Creatinine AT [facility] ([facility]) ID Date Data Source [id number] 07/27/2020 11:37:00 PM EDT [facility] ([facility]) Name Value Range Interpretation Code Description Data Amy rce(s) Supporting Document(s) ID Date Data Source [id number] 07/27/2020 11:37:00 PM EDT [facility] ([facility]) Name Value Range Interpretation Code Description Data Amy rce(s) Supporting Document(s) white blood count 11.3 10 4.0-10.0 Above high normal White Blood Count [place] ([facility]) hemoglobin 15.7 g/dL 13.5-17.5 Hemoglobin [facility] ([facility]) red blood count 5.78 10 4.30-6.10 Red Blood Count [place] ([facility]) hematocrit 45.7 % 42.0-52.0 Hematocrit [facility] ([facility]) mean corpuscular hemoglobin 27.2 pg 27.0-33.0 Mean Cor puscular Hemoglobin [facility] ([facility]) mean corpuscular volume 79.1 fL 80.0-96.0 Below low normal Mean Corpuscular Volume [facility] ([facility]) mean corpuscular HGB conc 34.4 g/dL 32.0-36.5 Mean Corpu scular HGB Conc [facility] ([facility]) platelet count, automated 111 10 150-450 Below low va l Platelet Count, Automated [place] ([facility]) red cell distribution width 13.2 % 11.5-14.5 Red Cell Distribution Width [facility] ([facility]) neutrophils % 90.6 % 36.0-66.0 Above high normal Neutrophils % A [place] ([facility]) lymph % 5.6 % 24.0-44.0 Below low normal Lymph % [place] ( [facility]) mono % 3.0 % 2.0-8.0 [place] % [facility] ([facility]) eos % 0.1 % 0.0-3.0 Eos % [facility] ([facility]) baso % 0.3 % 0.0-1.0 Baso % [facility] ([facility]) immature granulocyte % 0.4 % 0-3.0 Immature Gran ulocyte % [facility] ([facility]) nucleated red blood cell % 0.0 % 0-0 Nucleated Red Blood Cell % [facility] ([facility]) neutrophils # 10.3 10 1.5-8.5 Above high normal Neutrophils # A [facility] ([facility]) lymph # 0.6 10 1.5-5.0 Below low normal Lymph # [place] ( [facility]) mono # 0.3 10 0.0-0.8 [place] # [facility] ([facility]) baso # 0.0 10 0.0-0.2 Baso # [facility] ([facility]) eos # 0.0 10 0.0-0.5 Eos # [facility] ([facility]) ID Date Data Source [id number] 07/27/2020 11:37:00 PM EDT [facility] ([facility]) Name Value Range Interpretation Code Description Data Amy rce(s) Supporting Document(s) ID Date Data Source [id number] 07/27/2020 11:37:00 PM EDT [facility] ([facility]) Name Value Range Interpretation Code Description Data Amy rce(s) Supporting Document(s) white blood count 11.3 10 4.0-10.0 Above high normal White Blood Count [place] ([facility]) red blood count 5.78 10 4.30-6.10 Red Blood Count [place] NA ([facility]) hematocrit 45.7 % 42.0-52.0 Hematocrit [place] ([facility]) hemoglobin 15.7 g/dL 13.5-17.5 Hemoglobin [place] ([facility]) mean corpuscular volume 79.1 fL 80.0-96.0 Below low normal Mean Corpuscular Volume [facility] ([facility]) mean corpuscular hemoglobin 27.2 pg 27.0-33.0 Mean Cor puscular Hemoglobin [facility] ([facility]) mean corpuscular HGB conc 34.4 g/dL 32.0-36.5 Mean Corpu scular HGB Conc [facility] ([facility]) red cell distribution width 13.2 % 11.5-14.5 Red Cell Distribution Width [facility] ([facility]) platelet count, automated 111 10 150-450 Below low va l Platelet Count, Automated [place] ([facility]) neutrophils % 90.6 % 36.0-66.0 Above high normal Neutrophils % [facility]) mono % 3.0 % 2.0-8.0 [place] % [facility] ([facility]) lymph % 5.6 % 24.0-44.0 Below low normal Lymph % [place] ( [facility]) eos % 0.1 % 0.0-3.0 Eos % [facility] ([facility]) baso % 0.3 % 0.0-1.0 Baso % [facility] ([facility]) nucleated red blood cell % 0.0 % 0-0 Nucleated Red Blood Cell % [facility] ([facility]) immature granulocyte % 0.4 % 0-3.0 Immature Gran ulocyte % [facility] ([facility]) neutrophils # 10.3 10 1.5-8.5 Above high normal Neutrophils # A [facility] ([facility]) mono # 0.3 10 0.0-0.8 [place] # [facility] ([facility]) lymph # 0.6 10 1.5-5.0 Below low normal Lymph # [place] ( [facility]) eos # 0.0 10 0.0-0.5 Eos # [facility] ([facility]) baso # 0.0 10 0.0-0.2 Baso # [facility] ([facility]) ID Date Data Source [id number] 07/27/2020 11:37:00 PM EDT [facility] ([facility]) Name Value Range Interpretation Code Description Data Amy rce(s) Supporting Document(s) ID Date Data Source [id number] 07/27/2020 11:37:00 PM EDT [facility] ([facility]) Name Value Range Interpretation Code Description Data Amy rce(s) Supporting Document(s) white blood count 11.3 10 4.0-10.0 Above high normal White Blood Count [place] ([facility]) red blood count 5.78 10 4.30-6.10 Red Blood Count [place] ([facility]) hemoglobin 15.7 g/dL 13.5-17.5 Hemoglobin [place] ([facility]) hematocrit 45.7 % 42.0-52.0 Hematocrit [facility] ([facility]) mean corpuscular volume 79.1 fL 80.0-96.0 Below low normal Mean Corpuscular Volume [place] ([facility]) mean corpuscular hemoglobin 27.2 pg 27.0-33.0 Mean Cor puscular Hemoglobin [place] ([facility]) mean corpuscular HGB conc 34.4 g/dL 32.0-36.5 Mean Corpu scular HGB Conc [place] ([facility]) red cell distribution width 13.2 % 11.5-14.5 Red Cell Distribution Width [place] ([facility]) platelet count, automated 111 10 150-450 Below low va l Platelet Count, Automated [place] ([facility]) neutrophils % 90.6 % 36.0-66.0 Above high normal Neutrophils % A [place] ([facility]) lymph % 5.6 % 24.0-44.0 Below low normal Lymph % [place] ( [facility]) mono % 3.0 % 2.0-8.0 [place] % [facility] ([facility]) eos % 0.1 % 0.0-3.0 Eos % [facility] ([facility]) baso % 0.3 % 0.0-1.0 Baso % [facility] ([facility]) immature granulocyte % 0.4 % 0-3.0 Immature Gran ulocyte % [facility] ([facility]) nucleated red blood cell % 0.0 % 0-0 Nucleated Red Blood Cell % [facility] ([facility]) lymph # 0.6 10 1.5-5.0 Below low normal Lymph # [place] ( [facility]) neutrophils # 10.3 10 1.5-8.5 Above high normal Neutrophils # A [facility] ([facility]) mono # 0.3 10 0.0-0.8 [place] # [facility] ([facility]) eos # 0.0 10 0.0-0.5 Eos # [facility] ([facility]) baso # 0.0 10 0.0-0.2 Baso # [facility] ([facility]) ID Date Data Source [id number] 07/27/2020 11:37:00 PM EDT [facility] ([facility]) Name Value Range Interpretation Code Description Data Amy rce(s) Supporting Document(s) ID Date Data Source [id number] 07/27/2020 11:37:00 PM EDT [facility] ([facility]) Name Value Range Interpretation Code Description Data Amy rce(s) Supporting Document(s) white blood count 11.3 10 4.0-10.0 Above high normal White Blood Count [facility] ([facility]) red blood count 5.78 10 4.30-6.10 Red Blood Count [place] NA ([facility]) hemoglobin 15.7 g/dL 13.5-17.5 Hemoglobin [place] ([facility]) hematocrit 45.7 % 42.0-52.0 Hematocrit [facility] ([facility]) mean corpuscular volume 79.1 fL 80.0-96.0 Below low normal Mean Corpuscular Volume [facility] ([facility]) mean corpuscular hemoglobin 27.2 pg 27.0-33.0 Mean Cor puscular Hemoglobin [facility] ([facility]) mean corpuscular HGB conc 34.4 g/dL 32.0-36.5 Mean Corpu scular HGB Conc [place] ([facility]) platelet count, automated 111 10 150-450 Below low va l Platelet Count, Automated [place] ([facility]) red cell distribution width 13.2 % 11.5-14.5 Red Cell Distribution Width [facility] ([facility]) neutrophils % 90.6 % 36.0-66.0 Above high normal Neutrophils % A [place] ([facility]) lymph % 5.6 % 24.0-44.0 Below low normal Lymph % [place] ( [facility]) eos % 0.1 % 0.0-3.0 Eos % [facility] ([facility]) mono % 3.0 % 2.0-8.0 [place] % [place] ([facility]) immature granulocyte % 0.4 % 0-3.0 Immature Gran ulocyte % [facility] ([facility]) baso % 0.3 % 0.0-1.0 Baso % [facility] ([facility]) nucleated red blood cell % 0.0 % 0-0 Nucleated Red Blood Cell % [facility] ([facility]) neutrophils # 10.3 10 1.5-8.5 Above high normal Neutrophils # A [place] ([facility]) lymph # 0.6 10 1.5-5.0 Below low normal Lymph # [place] ( [facility]) mono # 0.3 10 0.0-0.8 [place] # [facility] ([facility]) eos # 0.0 10 0.0-0.5 Eos # [facility] ([facility]) baso # 0.0 10 0.0-0.2 Baso # [facility] ([facility]) ID Date Data Source [id number] 07/27/2020 11:37:00 PM EDT [place] ([facility]) Name Value Range Interpretation Code Description Data Amy rce(s) Supporting Document(s) ID Date Data Source [id number] 07/27/2020 11:37:00 PM EDT [facility] ([facility]) Name Value Range Interpretation Code Description Data Amy rce(s) Supporting Document(s) white blood count 11.3 10 4.0-10.0 Above high normal White Blood Count [place] ([facility]) hemoglobin 15.7 g/dL 13.5-17.5 Hemoglobin [place] ([facility]) red blood count 5.78 10 4.30-6.10 Red Blood Count [place] NA ([facility]) mean corpuscular volume 79.1 fL 80.0-96.0 Below low normal Mean Corpuscular Volume [facility] ([facility]) hematocrit 45.7 % 42.0-52.0 Hematocrit [facility] ([facility]) mean corpuscular HGB conc 34.4 g/dL 32.0-36.5 Mean Corpu scular HGB Conc [facility] ([facility]) mean corpuscular hemoglobin 27.2 pg 27.0-33.0 Mean Cor puscular Hemoglobin [place] ([facility]) platelet count, automated 111 10 150-450 Below low va l Platelet Count, Automated [place] ([facility]) red cell distribution width 13.2 % 11.5-14.5 Red Cell Distribution Width [facility] ([facility]) neutrophils % 90.6 % 36.0-66.0 Above high normal Neutrophils % A [facility] ([facility]) lymph % 5.6 % 24.0-44.0 Below low normal Lymph % [place] ( [facility]) mono % 3.0 % 2.0-8.0 [place] % [facility] ([facility]) eos % 0.1 % 0.0-3.0 Eos % [facility] ([facility]) immature granulocyte % 0.4 % 0-3.0 Immature Gran ulocyte % [facility] ([facility]) baso % 0.3 % 0.0-1.0 Baso % [facility] ([facility]) neutrophils # 10.3 10 1.5-8.5 Above high normal Neutrophils # A [facility]) nucleated red blood cell % 0.0 % 0-0 Nucleated Red Blood Cell % [place] ([facility]) lymph # 0.6 10 1.5-5.0 Below low normal Lymph # [place] ( [facility]) eos # 0.0 10 0.0-0.5 Eos # [facility] ([facility]) mono # 0.3 10 0.0-0.8 [place] # [facility] ([facility]) baso # 0.0 10 0.0-0.2 Baso # [facility] ([facility]) ID Date Data Source [id number] 07/27/2020 11:37:00 PM EDT [facility] ([facility]) Name Value Range Interpretation Code Description Data Amy rce(s) Supporting Document(s) ID Date Data Source [id number] 07/27/2020 11:37:00 PM EDT [facility] ([facility]) Name Value Range Interpretation Code Description Data Amy rce(s) Supporting Document(s) white blood count 11.3 10 4.0-10.0 Above high normal White Blood Count [place] ([facility]) hemoglobin 15.7 g/dL 13.5-17.5 Hemoglobin [place] ([facility]) red blood count 5.78 10 4.30-6.10 Red Blood Count [place] ([facility]) hematocrit 45.7 % 42.0-52.0 Hematocrit [place] ([facility]) mean corpuscular hemoglobin 27.2 pg 27.0-33.0 Mean Cor puscular Hemoglobin [place] ([facility]) mean corpuscular volume 79.1 fL 80.0-96.0 Below low normal Mean Corpuscular Volume [place] ([facility]) mean corpuscular HGB conc 34.4 g/dL 32.0-36.5 Mean Corpu scular HGB Conc [place] ([facility]) red cell distribution width 13.2 % 11.5-14.5 Red Cell Distribution Width [place] ([facility]) platelet count, automated 111 10 150-450 Below low va l Platelet Count, Automated [place] ([facility]) lymph % 5.6 % 24.0-44.0 Below low normal Lymph % [place] ( [facility]) neutrophils % 90.6 % 36.0-66.0 Above high normal Neutrophils % A [place] ([facility]) eos % 0.1 % 0.0-3.0 Eos % [facility] ([facility]) mono % 3.0 % 2.0-8.0 [place] % [facility] ([facility]) immature granulocyte % 0.4 % 0-3.0 Immature Gran ulocyte % [facility] ([facility]) baso % 0.3 % 0.0-1.0 Baso % [facility] ([facility]) neutrophils # 10.3 10 1.5-8.5 Above high normal Neutrophils # A [place] ([facility]) nucleated red blood cell % 0.0 % 0-0 Nucleated Red Blood Cell % [facility] ([facility]) lymph # 0.6 10 1.5-5.0 Below low normal Lymph # [place] ( [facility]) eos # 0.0 10 0.0-0.5 Eos # [facility] ([facility]) mono # 0.3 10 0.0-0.8 [place] # [facility] ([facility]) baso # 0.0 10 0.0-0.2 Baso # [facility] ([facility]) ID Date Data Source [id number] 07/27/2020 11:37:00 PM EDT [facility] ([facility]) Name Value Range Interpretation Code Description Data Amy rce(s) Supporting Document(s) ID Date Data Source [id number] 07/27/2020 11:37:00 PM EDT [facility] ([facility]) Name Value Range Interpretation Code Description Data Amy rce(s) Supporting Document(s) red blood count 5.78 10 4.30-6.10 Red Blood Count [place] NA ([facility]) white blood count 11.3 10 4.0-10.0 Above high normal White Blood Count [place] ([facility]) hemoglobin 15.7 g/dL 13.5-17.5 Hemoglobin [facility] ([facility]) hematocrit 45.7 % 42.0-52.0 Hematocrit [facility] ([facility]) mean corpuscular volume 79.1 fL 80.0-96.0 Below low normal Mean Corpuscular Volume [facility] ([facility]) mean corpuscular hemoglobin 27.2 pg 27.0-33.0 Mean Cor puscular Hemoglobin [facility] ([facility]) mean corpuscular HGB conc 34.4 g/dL 32.0-36.5 Mean Corpu scular HGB Conc [facility] ([facility]) platelet count, automated 111 10 150-450 Below low va l Platelet Count, Automated [place] ([facility]) red cell distribution width 13.2 % 11.5-14.5 Red Cell Distribution Width [facility] ([facility]) neutrophils % 90.6 % 36.0-66.0 Above high normal Neutrophils % A [facility]) lymph % 5.6 % 24.0-44.0 Below low normal Lymph % [place] ( [facility]) mono % 3.0 % 2.0-8.0 [place] % [facility] ([facility]) baso % 0.3 % 0.0-1.0 Baso % [facility] ([facility]) eos % 0.1 % 0.0-3.0 Eos % [facility] ([facility]) immature granulocyte % 0.4 % 0-3.0 Immature Gran ulocyte % [facility] ([facility]) nucleated red blood cell % 0.0 % 0-0 Nucleated Red Blood Cell % [facility] ([facility]) neutrophils # 10.3 10 1.5-8.5 Above high normal Neutrophils # A [facility] ([facility]) lymph # 0.6 10 1.5-5.0 Below low normal Lymph # [place] ( [facility]) eos # 0.0 10 0.0-0.5 Eos # [facility] ([facility]) mono # 0.3 10 0.0-0.8 [place] # [facility] ([facility]) baso # 0.0 10 0.0-0.2 Baso # [facility] ([facility]) ID Date Data Source [id number] 07/27/2020 11:37:00 PM EDT [place] ([facility]) Name Value Range Interpretation Code Description Data Amy rce(s) Supporting Document(s) ID Date Data Source [id number] 07/27/2020 11:37:00 PM EDT [facility] ([facility]) Name Value Range Interpretation Code Description Data Amy rce(s) Supporting Document(s) white blood count 11.3 10 4.0-10.0 Above high normal White Blood Count [place] ([facility]) red blood count 5.78 10 4.30-6.10 Red Blood Count [place] ([facility]) hemoglobin 15.7 g/dL 13.5-17.5 Hemoglobin [place] ([facility]) mean corpuscular volume 79.1 fL 80.0-96.0 Below low normal Mean Corpuscular Volume [facility] ([facility]) hematocrit 45.7 % 42.0-52.0 Hematocrit [facility] ([facility]) mean corpuscular HGB conc 34.4 g/dL 32.0-36.5 Mean Corpu scular HGB Conc [facility] ([facility]) mean corpuscular hemoglobin 27.2 pg 27.0-33.0 Mean Cor puscular Hemoglobin [place] ([facility]) red cell distribution width 13.2 % 11.5-14.5 Red Cell Distribution Width [facility] ([facility]) platelet count, automated 111 10 150-450 Below low va l Platelet Count, Automated [place] ([facility]) lymph % 5.6 % 24.0-44.0 Below low normal Lymph % [place] ( [facility]) neutrophils % 90.6 % 36.0-66.0 Above high normal Neutrophils % A [facility] ([facility]) mono % 3.0 % 2.0-8.0 [place] % [facility] ([facility]) eos % 0.1 % 0.0-3.0 Eos % [facility] ([facility]) baso % 0.3 % 0.0-1.0 Baso % [facility] ([facility]) immature granulocyte % 0.4 % 0-3.0 Immature Gran ulocyte % [facility] ([facility]) nucleated red blood cell % 0.0 % 0-0 Nucleated Red Blood Cell % [facility] ([facility]) neutrophils # 10.3 10 1.5-8.5 Above high normal Neutrophils # A [facility] ([facility]) lymph # 0.6 10 1.5-5.0 Below low normal Lymph # [facility] ( [facility]) mono # 0.3 10 0.0-0.8 [place] # [facility] ([facility]) baso # 0.0 10 0.0-0.2 Baso # [facility] ([facility]) eos # 0.0 10 0.0-0.5 Eos # [facility] ([facility]) ID Date Data Source [id number] 07/27/2020 11:37:00 PM EDT [facility] ([facility]) Name Value Range Interpretation Code Description Data Amy rce(s) Supporting Document(s) ID Date Data Source [id number] 07/27/2020 11:37:00 PM EDT [facility] ([facility]) Name Value Range Interpretation Code Description Data Amy rce(s) Supporting Document(s) red blood count 5.78 10 4.30-6.10 Red Blood Count [place] NA ([facility]) white blood count 11.3 10 4.0-10.0 Above high normal White Blood Count [facility] ([facility]) hematocrit 45.7 % 42.0-52.0 Hematocrit [facility] ([facility]) hemoglobin 15.7 g/dL 13.5-17.5 Hemoglobin [facility] ([facility]) mean corpuscular hemoglobin 27.2 pg 27.0-33.0 Mean Cor puscular Hemoglobin [facility] ([facility]) mean corpuscular volume 79.1 fL 80.0-96.0 Below low normal Mean Corpuscular Volume [facility] ([facility]) mean corpuscular HGB conc 34.4 g/dL 32.0-36.5 Mean Corpu scular HGB Conc [facility] ([facility]) red cell distribution width 13.2 % 11.5-14.5 Red Cell Distribution Width [facility] ([facility]) platelet count, automated 111 10 150-450 Below low va l Platelet Count, Automated [facility] ([facility]) neutrophils % 90.6 % 36.0-66.0 Above high normal Neutrophils % [facility]) lymph % 5.6 % 24.0-44.0 Below low normal Lymph % [facility] ( [facility]) mono % 3.0 % 2.0-8.0 [place] % [facility] ([facility]) eos % 0.1 % 0.0-3.0 Eos % [facility] ([facility]) immature granulocyte % 0.4 % 0-3.0 Immature Gran ulocyte % [facility] ([facility]) baso % 0.3 % 0.0-1.0 Baso % [facility] ([facility]) neutrophils # 10.3 10 1.5-8.5 Above high normal Neutrophils # A [facility] ([facility]) nucleated red blood cell % 0.0 % 0-0 Nucleated Red Blood Cell % [facility] ([facility]) mono # 0.3 10 0.0-0.8 [place] # [facility] ([facility]) lymph # 0.6 10 1.5-5.0 Below low normal Lymph # [facility] ( [facility]) baso # 0.0 10 0.0-0.2 Baso # [facility] ([facility]) eos # 0.0 10 0.0-0.5 Eos # [facility] ([facility]) ID Date Data Source [id number] 07/27/2020 11:37:00 PM EDT [facility] ([facility]) Name Value Range Interpretation Code Description Data Amy rce(s) Supporting Document(s) ID Date Data Source [id number] 07/27/2020 11:37:00 PM EDT [facility] ([facility]) Name Value Range Interpretation Code Description Data Amy rce(s) Supporting Document(s) white blood count 11.3 10 4.0-10.0 Above high normal White Blood Count [facility] ([facility]) red blood count 5.78 10 4.30-6.10 Red Blood Count [facility] ([facility]) hemoglobin 15.7 g/dL 13.5-17.5 Hemoglobin [facility] ([facility]) hematocrit 45.7 % 42.0-52.0 Hematocrit [facility] ([facility]) mean corpuscular volume 79.1 fL 80.0-96.0 Below low normal Mean Corpuscular Volume [facility] ([facility]) mean corpuscular hemoglobin 27.2 pg 27.0-33.0 Mean Cor puscular Hemoglobin [facility] ([facility]) mean corpuscular HGB conc 34.4 g/dL 32.0-36.5 Mean Corpu scular HGB Conc [facility] ([facility]) red cell distribution width 13.2 % 11.5-14.5 Red Cell Distribution Width [facility] ([facility]) platelet count, automated 111 10 150-450 Below low va l Platelet Count, Automated [facility] ([facility]) neutrophils % 90.6 % 36.0-66.0 Above high normal Neutrophils % A [facility] ([facility]) lymph % 5.6 % 24.0-44.0 Below low normal Lymph % [facility] ( [facility]) mono % 3.0 % 2.0-8.0 [place] % [facility] ([facility]) eos % 0.1 % 0.0-3.0 Eos % [facility] ([facility]) baso % 0.3 % 0.0-1.0 Baso % [facility] ([facility]) immature granulocyte % 0.4 % 0-3.0 Immature Gran ulocyte % [facility] ([facility]) nucleated red blood cell % 0.0 % 0-0 Nucleated Red Blood Cell % [facility] ([facility]) neutrophils # 10.3 10 1.5-8.5 Above high normal Neutrophils # A [facility] ([facility]) lymph # 0.6 10 1.5-5.0 Below low normal Lymph # [facility] ( [facility]) mono # 0.3 10 0.0-0.8 [place] # [facility] ([facility]) eos # 0.0 10 0.0-0.5 Eos # [facility] ([facility]) baso # 0.0 10 0.0-0.2 Baso # [facility] ([facility]) ID Date Data Source [id number] 07/27/2020 11:37:00 PM EDT [facility] ([facility]) Name Value Range Interpretation Code Description Data Amy rce(s) Supporting Document(s) ID Date Data Source [id number] 07/27/2020 11:37:00 PM EDT [facility] ([facility]) Name Value Range Interpretation Code Description Data Amy rce(s) Supporting Document(s) red blood count 5.78 10 4.30-6.10 Red Blood Count [facility] NA ([facility]) white blood count 11.3 10 4.0-10.0 Above high normal White Blood Count [facility] ([facility]) hemoglobin 15.7 g/dL 13.5-17.5 Hemoglobin [facility] ([facility]) hematocrit 45.7 % 42.0-52.0 Hematocrit [facility] ([facility]) mean corpuscular volume 79.1 fL 80.0-96.0 Below low normal Mean Corpuscular Volume [facility] ([facility]) mean corpuscular hemoglobin 27.2 pg 27.0-33.0 Mean Cor puscular Hemoglobin [facility] ([facility]) mean corpuscular HGB conc 34.4 g/dL 32.0-36.5 Mean Corpu scular HGB Conc [facility] ([facility]) red cell distribution width 13.2 % 11.5-14.5 Red Cell Distribution Width [facility] [facility], automated 111 10 150-450 Below low va l Platelet Count, Automated [facility] ([facility]) neutrophils % 90.6 % 36.0-66.0 Above high normal Neutrophils % A [facility] ([facility]) lymph % 5.6 % 24.0-44.0 Below low normal Lymph % [facility] ( [facility]) mono % 3.0 % 2.0-8.0 [place] % [facility] ([facility]) eos % 0.1 % 0.0-3.0 Eos % [place] ([facility]) baso % 0.3 % 0.0-1.0 Baso % [place] ([facility]) immature granulocyte % 0.4 % 0-3.0 Immature Gran ulocyte % [place] ([facility]) nucleated red blood cell % 0.0 % 0-0 Nucleated Red Blood Cell % [place] ([facility]) neutrophils # 10.3 10 1.5-8.5 Above high normal Neutrophils # A [facility] ([facility]) lymph # 0.6 10 1.5-5.0 Below low normal Lymph # [facility] ( [facility]) mono # 0.3 10 0.0-0.8 [place] # [place] ([facility]) eos # 0.0 10 0.0-0.5 Eos # [facility] ([facility]) baso # 0.0 10 0.0-0.2 Baso # [facility] ([facility]) ID Date Data Source [id number] 07/27/2020 11:37:00 PM EDT [place] ([facility]) Name Value Range Interpretation Code Description Data Amy rce(s) Supporting Document(s) ID Date Data Source [id number] 07/27/2020 11:37:00 PM EDT [facility] ([facility]) Name Value Range Interpretation Code Description Data Amy rce(s) Supporting Document(s) white blood count 11.3 10 4.0-10.0 Above high normal White Blood Count [facility] ([facility]) hemoglobin 15.7 g/dL 13.5-17.5 Hemoglobin [facility] ([facility]) red blood count 5.78 10 4.30-6.10 Red Blood Count [facility] ([facility]) mean corpuscular volume 79.1 fL 80.0-96.0 Below low normal Mean Corpuscular Volume [facility] ([facility]) hematocrit 45.7 % 42.0-52.0 Hematocrit [facility] ([facility]) mean corpuscular HGB conc 34.4 g/dL 32.0-36.5 Mean Corpu scular HGB Conc [facility] ([facility]) mean corpuscular hemoglobin 27.2 pg 27.0-33.0 Mean Cor puscular Hemoglobin [facility] ([facility]) platelet count, automated 111 10 150-450 Below low va l Platelet Count, Automated [facility] ([facility]) red cell distribution width 13.2 % 11.5-14.5 Red Cell Distribution Width [facility] ([facility]) lymph % 5.6 % 24.0-44.0 Below low normal Lymph % [place] ( [facility]) neutrophils % 90.6 % 36.0-66.0 Above high normal Neutrophils % A [facility] ([facility]) mono % 3.0 % 2.0-8.0 [place] % [facility] ([facility]) eos % 0.1 % 0.0-3.0 Eos % [facility] ([facility]) baso % 0.3 % 0.0-1.0 Baso % [facility] ([facility]) immature granulocyte % 0.4 % 0-3.0 Immature Gran ulocyte % [facility] ([facility]) nucleated red blood cell % 0.0 % 0-0 Nucleated Red Blood Cell % [facility] ([facility]) neutrophils # 10.3 10 1.5-8.5 Above high normal Neutrophils # A [facility] ([facility]) lymph # 0.6 10 1.5-5.0 Below low normal Lymph # [facility] ( [facility]) mono # 0.3 10 0.0-0.8 [place] # [facility] ([facility]) baso # 0.0 10 0.0-0.2 Baso # [facility] ([facility]) eos # 0.0 10 0.0-0.5 Eos # [facility] ([facility]) ID Date Data Source [id number] 07/27/2020 11:37:00 PM EDT [facility] Name Value Range Interpretation Code Description Data Amy rce(s) Supporting Document(s) SARS-CoV-2 (COVID-19) RNA [Presence] in Respiratory specimen by [facility] with probe detection Not Detected [facility] This lab was ordered by [facility] and reported by [facility]. ID Date Data Source [id number] 07/27/2020 11:36:00 PM EDT [place] ([facility]) Name Value Range Interpretation Code Description Data Amy rce(s) Supporting Document(s) mono scrn negative negative [place] Scrn [place] ([facility]) ID Date Data Source [id number] 07/27/2020 11:36:00 PM EDT [place] ([facility]) Name Value Range Interpretation Code Description Data Amy rce(s) Supporting Document(s) lipase 50 U/L 73-393 Below low normal Lipase [place] ( [facility]) ID Date Data Source [id number] 07/27/2020 11:36:00 PM EDT [place] ([facility]) Name Value Range Interpretation Code Description Data Amy rce(s) Supporting Document(s) AST/SGOT 16 U/L 7-37 AST/SGOT [place] ([facility]) ALT/SGPT 15 U/L 12-78 ALT/SGPT [place] ([facility]) alkaline phosphatase 59 U/L 45-117 Alkaline Phosph atase [place] ([facility]) bilirubin,total 1.5 mg/dL 0.2-1.0 Above high normal Bilirubin,tot al [facility] ([facility]) bilirubin,direct 0.4 mg/dL 0.0-0.2 Above high normal Bilirubin,di rect [facility] ([facility]) albumin 5.6 gm/dL 3.2-5.2 Above high normal Albumin [facility] ([facility]) total protein 8.8 gm/dL 6.4-8.2 Above high normal Total Protein A [facility] ([facility]) albumin/globulin ratio Albumin/globu maría Ratio [facility] ([facility]) ID Date Data Source [id number] 07/27/2020 11:36:00 PM EDT [place] ([facility]) Name Value Range Interpretation Code Description Data Amy rce(s) Supporting Document(s) mono scrn negative negative [place] Scrn [facility] ([facility]) ID Date Data Source [id number] 07/27/2020 11:36:00 PM EDT [place] ([facility]) Name Value Range Interpretation Code Description Data Amy rce(s) Supporting Document(s) lipase 50 U/L 73-393 Below low normal Lipase [place] ( [facility]) ID Date Data Source [id number] 07/27/2020 11:36:00 PM EDT [place] ([facility]) Name Value Range Interpretation Code Description Data Amy rce(s) Supporting Document(s) AST/SGOT 16 U/L 7-37 AST/SGOT [facility] ([facility]) ALT/SGPT 15 U/L 12-78 ALT/SGPT [facility] ([facility]) alkaline phosphatase 59 U/L 45-117 Alkaline Phosph atase [facility] ([facility]) bilirubin,total 1.5 mg/dL 0.2-1.0 Above high normal Bilirubin,tot al [facility] ([facility]) bilirubin,direct 0.4 mg/dL 0.0-0.2 Above high normal Bilirubin,di rect [facility] ([facility]) total protein 8.8 gm/dL 6.4-8.2 Above high normal Total Protein A [facility] ([facility]) albumin 5.6 gm/dL 3.2-5.2 Above high normal Albumin [facility] ([facility]) albumin/globulin ratio Albumin/globu maría Ratio [facility] ([facility]) ID Date Data Source [id number] 07/27/2020 11:36:00 PM EDT [place] ([facility]) Name Value Range Interpretation Code Description Data Amy rce(s) Supporting Document(s) mono scrn negative negative [place] Scrn [facility] ([facility]) ID Date Data Source [id number] 07/27/2020 11:36:00 PM EDT [place] ([facility]) Name Value Range Interpretation Code Description Data Amy rce(s) Supporting Document(s) lipase 50 U/L 73-393 Below low normal Lipase [place] ( [facility]) ID Date Data Source [id number] 07/27/2020 11:36:00 PM EDT [place] ([facility]) Name Value Range Interpretation Code Description Data Amy rce(s) Supporting Document(s) AST/SGOT 16 U/L 7-37 AST/SGOT [facility] ([facility]) ALT/SGPT 15 U/L 12-78 ALT/SGPT [place] ([facility]) alkaline phosphatase 59 U/L 45-117 Alkaline Phosph atase [facility] ([facility]) bilirubin,total 1.5 mg/dL 0.2-1.0 Above high normal Bilirubin,tot al [facility] ([facility]) bilirubin,direct 0.4 mg/dL 0.0-0.2 Above high normal Bilirubin,di rect [facility] ([facility]) total protein 8.8 gm/dL 6.4-8.2 Above high normal Total Protein A [facility] ([facility]) albumin 5.6 gm/dL 3.2-5.2 Above high normal Albumin [facility] ([facility]) albumin/globulin ratio Albumin/globu maría Ratio [facility] ([facility]) ID Date Data Source [id number] 07/27/2020 11:36:00 PM EDT [facility] ([facility]) Name Value Range Interpretation Code Description Data Amy rce(s) Supporting Document(s) mono scrn negative negative [place] Scrn [facility] ([facility]) ID Date Data Source [id number] 07/27/2020 11:36:00 PM EDT [facility] ([facility]) Name Value Range Interpretation Code Description Data Amy rce(s) Supporting Document(s) lipase 50 U/L 73-393 Below low normal Lipase [facility] ( [facility]) ID Date Data Source [id number] 07/27/2020 11:36:00 PM EDT [facility] ([facility]) Name Value Range Interpretation Code Description Data Amy rce(s) Supporting Document(s) AST/SGOT 16 U/L 7-37 AST/SGOT [facility] ([facility]) ALT/SGPT 15 U/L 12-78 ALT/SGPT [facility] ([facility]) alkaline phosphatase 59 U/L 45-117 Alkaline Phosph atase [facility] ([facility]) bilirubin,total 1.5 mg/dL 0.2-1.0 Above high normal Bilirubin,tot al [facility] ([facility]) bilirubin,direct 0.4 mg/dL 0.0-0.2 Above high normal Bilirubin,di rect [facility] ([facility]) total protein 8.8 gm/dL 6.4-8.2 Above high normal Total Protein A [facility] ([facility]) albumin 5.6 gm/dL 3.2-5.2 Above high normal Albumin [facility] ([facility]) albumin/globulin ratio Albumin/globu maría Ratio [facility] ([facility]) ID Date Data Source [id number] 07/27/2020 11:36:00 PM EDT [facility] ([facility]) Name Value Range Interpretation Code Description Data Amy rce(s) Supporting Document(s) mono scrn negative negative [place] Scrn [facility] ([facility]) ID Date Data Source [id number] 07/27/2020 11:36:00 PM EDT [facility] ([facility]) Name Value Range Interpretation Code Description Data Amy rce(s) Supporting Document(s) lipase 50 U/L 73-393 Below low normal Lipase [place] ( [facility]) ID Date Data Source [id number] 07/27/2020 11:36:00 PM EDT [place] ([facility]) Name Value Range Interpretation Code Description Data Amy rce(s) Supporting Document(s) AST/SGOT 16 U/L 7-37 AST/SGOT [facility] ([facility]) ALT/SGPT 15 U/L 12-78 ALT/SGPT [place] ([facility]) alkaline phosphatase 59 U/L 45-117 Alkaline Phosph atase [place] ([facility]) bilirubin,total 1.5 mg/dL 0.2-1.0 Above high normal Bilirubin,tot al [facility] ([facility]) bilirubin,direct 0.4 mg/dL 0.0-0.2 Above high normal Bilirubin,di rect [facility] ([facility]) total protein 8.8 gm/dL 6.4-8.2 Above high normal Total Protein A [facility] ([facility]) albumin/globulin ratio Albumin/globu maría Ratio [facility] ([facility]) albumin 5.6 gm/dL 3.2-5.2 Above high normal Albumin [place] ([facility]) ID Date Data Source [id number] 07/27/2020 11:36:00 PM EDT [place] ([facility]) Name Value Range Interpretation Code Description Data Amy rce(s) Supporting Document(s) mono scrn negative negative [place] Scrn [facility] ([facility]) ID Date Data Source [id number] 07/27/2020 11:36:00 PM EDT [facility] ([facility]) Name Value Range Interpretation Code Description Data Amy rce(s) Supporting Document(s) lipase 50 U/L 73-393 Below low normal Lipase [facility] ( [facility]) ID Date Data Source [id number] 07/27/2020 11:36:00 PM EDT [facility] ([facility]) Name Value Range Interpretation Code Description Data Amy rce(s) Supporting Document(s) AST/SGOT 16 U/L 7-37 AST/SGOT [facility] ([facility]) ALT/SGPT 15 U/L 12-78 ALT/SGPT [place] ([facility]) alkaline phosphatase 59 U/L 45-117 Alkaline Phosph atase [facility] ([facility]) bilirubin,direct 0.4 mg/dL 0.0-0.2 Above high normal Bilirubin,di rect [facility] ([facility]) bilirubin,total 1.5 mg/dL 0.2-1.0 Above high normal Bilirubin,tot al [facility] ([facility]) albumin 5.6 gm/dL 3.2-5.2 Above high normal Albumin [facility] ([facility]) total protein 8.8 gm/dL 6.4-8.2 Above high normal Total Protein A [facility] ([facility]) albumin/globulin ratio Albumin/globu maría Ratio [facility] ([facility]) ID Date Data Source [id number] 07/27/2020 11:36:00 PM EDT [facility] ([facility]) Name Value Range Interpretation Code Description Data Amy rce(s) Supporting Document(s) mono scrn negative negative [place] Scrn [facility] ([facility]) ID Date Data Source [id number] 07/27/2020 11:36:00 PM EDT [facility] ([facility]) Name Value Range Interpretation Code Description Data Amy rce(s) Supporting Document(s) lipase 50 U/L 73-393 Below low normal Lipase [facility] ( [facility]) ID Date Data Source [id number] 07/27/2020 11:36:00 PM EDT [facility] ([facility]) Name Value Range Interpretation Code Description Data Amy rce(s) Supporting Document(s) AST/SGOT 16 U/L 7-37 AST/SGOT [facility] ([facility]) alkaline phosphatase 59 U/L 45-117 Alkaline Phosph atase [facility] ([facility]) ALT/SGPT 15 U/L 12-78 ALT/SGPT [facility] ([facility]) bilirubin,total 1.5 mg/dL 0.2-1.0 Above high normal Bilirubin,tot al [facility] ([facility]) bilirubin,direct 0.4 mg/dL 0.0-0.2 Above high normal Bilirubin,di rect [facility] ([facility]) total protein 8.8 gm/dL 6.4-8.2 Above high normal Total Protein A [facility] ([facility]) albumin/globulin ratio Albumin/globu maría Ratio [facility] ([facility]) albumin 5.6 gm/dL 3.2-5.2 Above high normal Albumin [place] ([facility]) ID Date Data Source [id number] 07/27/2020 11:36:00 PM EDT [facility] ([facility]) Name Value Range Interpretation Code Description Data Amy rce(s) Supporting Document(s) mono scrn negative negative [place] Scrn [facility] ([facility]) ID Date Data Source [id number] 07/27/2020 11:36:00 PM EDT [facility] ([facility]) Name Value Range Interpretation Code Description Data Amy rce(s) Supporting Document(s) lipase 50 U/L 73-393 Below low normal Lipase [facility] ( [facility]) ID Date Data Source [id number] 07/27/2020 11:36:00 PM EDT [facility] ([facility]) Name Value Range Interpretation Code Description Data Amy rce(s) Supporting Document(s) ALT/SGPT 15 U/L 12-78 ALT/SGPT [facility] ([facility]) AST/SGOT 16 U/L 7-37 AST/SGOT [facility] ([facility]) bilirubin,total 1.5 mg/dL 0.2-1.0 Above high normal Bilirubin,tot al [facility] ([facility]) alkaline phosphatase 59 U/L 45-117 Alkaline Phosph atase [facility] ([facility]) bilirubin,direct 0.4 mg/dL 0.0-0.2 Above high normal Bilirubin,di rect [facility] ([facility]) total protein 8.8 gm/dL 6.4-8.2 Above high normal Total Protein A [facility] ([facility]) albumin 5.6 gm/dL 3.2-5.2 Above high normal Albumin [place] ([facility]) albumin/globulin ratio Albumin/globu maría Ratio [place] ([facility]) ID Date Data Source [id number] 07/27/2020 11:36:00 PM EDT [place] ([facility]) Name Value Range Interpretation Code Description Data Amy rce(s) Supporting Document(s) AST/SGOT 16 U/L 7-37 AST/SGOT [facility] ([facility]) ALT/SGPT 15 U/L 12-78 ALT/SGPT [facility] ([facility]) alkaline phosphatase 59 U/L 45-117 Alkaline Phosph atase [facility] ([facility]) bilirubin,total 1.5 mg/dL 0.2-1.0 Above high normal Bilirubin,tot al [facility] ([facility]) bilirubin,direct 0.4 mg/dL 0.0-0.2 Above high normal Bilirubin,di rect [facility] ([facility]) albumin 5.6 gm/dL 3.2-5.2 Above high normal Albumin [facility] ([facility]) total protein 8.8 gm/dL 6.4-8.2 Above high normal Total Protein A [facility] ([facility]) albumin/globulin ratio Albumin/globu maría Ratio [facility] ([facility]) ID Date Data Source [id number] 07/27/2020 11:36:00 PM EDT [facility] ([facility]) Name Value Range Interpretation Code Description Data Amy rce(s) Supporting Document(s) mono scrn negative negative [place] Scrn [facility] ([facility]) ID Date Data Source [id number] 07/27/2020 11:36:00 PM EDT [place] ([facility]) Name Value Range Interpretation Code Description Data Amy rce(s) Supporting Document(s) lipase 50 U/L 73-393 Below low normal Lipase [facility] ( [facility]) ID Date Data Source [id number] 07/27/2020 11:36:00 PM EDT [place] ([facility]) Name Value Range Interpretation Code Description Data Amy rce(s) Supporting Document(s) AST/SGOT 16 U/L 7-37 AST/SGOT [place] ([facility]) ALT/SGPT 15 U/L 12-78 ALT/SGPT [place] ([facility]) bilirubin,total 1.5 mg/dL 0.2-1.0 Above high normal Bilirubin,tot al [facility] ([facility]) alkaline phosphatase 59 U/L 45-117 Alkaline Phosph atase [facility] ([facility]) bilirubin,direct 0.4 mg/dL 0.0-0.2 Above high normal Bilirubin,di rect [facility] ([facility]) total protein 8.8 gm/dL 6.4-8.2 Above high normal Total Protein A [facility] ([facility]) albumin 5.6 gm/dL 3.2-5.2 Above high normal Albumin [facility] ([facility]) albumin/globulin ratio Albumin/globu maría Ratio [facility] ([facility]) ID Date Data Source [id number] 07/27/2020 11:36:00 PM EDT [facility] ([facility]) Name Value Range Interpretation Code Description Data Amy rce(s) Supporting Document(s) mono scrn negative negative [place] Scrn [facility] ([facility]) ID Date Data Source [id number] 07/27/2020 11:36:00 PM EDT [facility] ([facility]) Name Value Range Interpretation Code Description Data Amy rce(s) Supporting Document(s) lipase 50 U/L 73-393 Below low normal Lipase [facility] ( [facility]) ID Date Data Source [id number] 07/27/2020 11:36:00 PM EDT [facility] ([facility]) Name Value Range Interpretation Code Description Data Amy rce(s) Supporting Document(s) ALT/SGPT 15 U/L 12-78 ALT/SGPT [facility] ([facility]) AST/SGOT 16 U/L 7-37 AST/SGOT [place] ([facility]) alkaline phosphatase 59 U/L 45-117 Alkaline Phosph atase [facility] ([facility]) bilirubin,total 1.5 mg/dL 0.2-1.0 Above high normal Bilirubin,tot al [facility] ([facility]) bilirubin,direct 0.4 mg/dL 0.0-0.2 Above high normal Bilirubin,di rect [facility] ([facility]) total protein 8.8 gm/dL 6.4-8.2 Above high normal Total Protein A [facility] ([facility]) albumin 5.6 gm/dL 3.2-5.2 Above high normal Albumin [place] ([facility]) albumin/globulin ratio Albumin/globu maría Ratio [facility] ([facility]) ID Date Data Source [id number] 07/27/2020 11:36:00 PM EDT [place] ([facility]) Name Value Range Interpretation Code Description Data Amy rce(s) Supporting Document(s) mono scrn negative negative [place] Scrn [facility] ([facility]) ID Date Data Source [id number] 07/27/2020 11:36:00 PM EDT [facility] ([facility]) Name Value Range Interpretation Code Description Data Amy rce(s) Supporting Document(s) lipase 50 U/L 73-393 Below low normal Lipase [facility] ( [facility]) ID Date Data Source [id number] 07/27/2020 11:36:00 PM EDT [place] ([facility]) Name Value Range Interpretation Code Description Data Amy rce(s) Supporting Document(s) AST/SGOT 16 U/L 7-37 AST/SGOT [place] ([facility]) ALT/SGPT 15 U/L 12-78 ALT/SGPT [place] ([facility]) alkaline phosphatase 59 U/L 45-117 Alkaline Phosph atase [facility] ([facility]) bilirubin,direct 0.4 mg/dL 0.0-0.2 Above high normal Bilirubin,di rect [facility] ([facility]) bilirubin,total 1.5 mg/dL 0.2-1.0 Above high normal Bilirubin,tot al [facility] ([facility]) albumin 5.6 gm/dL 3.2-5.2 Above high normal Albumin [place] ([facility]) total protein 8.8 gm/dL 6.4-8.2 Above high normal Total Protein A [facility] ([facility]) albumin/globulin ratio Albumin/globu maría Ratio [place] ([facility]) ID Date Data Source [id number] 07/27/2020 11:36:00 PM EDT [facility] ([facility]) Name Value Range Interpretation Code Description Data Amy rce(s) Supporting Document(s) mono scrn negative negative [place] [facility] [place] ([facility]) ID Date Data Source [id number] 07/27/2020 11:36:00 PM EDT [facility]) Name Value Range Interpretation Code Description Data Amy rce(s) Supporting Document(s) lipase 50 U/L 73-393 Below low normal Lipase [facility]) ID Date Data Source [id number] 07/27/2020 09:44:00 PM EDT [facility]) Name Value Range Interpretation Code Description Data Amy rce(s) Supporting Document(s) kathrine covid antigen negative negative Kathrine Covid Anti gen [facility]) ID Date Data Source [id number] 07/27/2020 09:44:00 PM EDT [facility]) Name Value Range Interpretation Code Description Data Amy rce(s) Supporting Document(s) kathrine covid antigen negative negative Kathrine Covid Anti gen [place] ([facility]) ID Date Data Source [id number] 07/27/2020 09:44:00 PM EDT [facility]) Name Value Range Interpretation Code Description Data Amy rce(s) Supporting Document(s) kathrine covid antigen negative negative Kathrine Covid Anti gen [place] ([facility]) ID Date Data Source [id number] 07/27/2020 09:44:00 PM EDT [facility]) Name Value Range Interpretation Code Description Data Amy rce(s) Supporting Document(s) kathrine covid antigen negative negative Kathrine Covid Anti gen [place] ([facility]) ID Date Data Source [id number] 07/27/2020 09:44:00 PM EDT [facility]) Name Value Range Interpretation Code Description Data Amy rce(s) Supporting Document(s) kathrine covid antigen negative negative Kathrine Covid Anti gen [place] ([facility]) ID Date Data Source [id number] 07/27/2020 09:44:00 PM EDT [facility] ([facility]) Name Value Range Interpretation Code Description Data Amy rce(s) Supporting Document(s) kathrine covid antigen negative negative Kathrine Covid Anti gen [place] ([facility]) ID Date Data Source [id number] 07/27/2020 09:44:00 PM EDT [facility]) Name Value Range Interpretation Code Description Data Amy rce(s) Supporting Document(s) kathrine covid antigen negative negative Kathrine Covid Anti gen [place] ([facility]) ID Date Data Source [id number] 07/27/2020 09:44:00 PM EDT [facility] Name Value Range Interpretation Code Description Data Amy rce(s) Supporting Document(s) SARS COVID ANTIGEN NEGATIVE [facility] This lab was ordered by FAUSTINO giraldo nd reported by [facility]. ID Date Data Source [id number] 07/27/2020 09:44:00 PM EDT [facility]) Name Value Range Interpretation Code Description Data Amy rce(s) Supporting Document(s) kathrine covid antigen negative negative Kathrine Covid Anti gen [facility] ([facility]) ID Date Data Source [id number] 07/27/2020 09:44:00 PM EDT [place] ([facility]) Name Value Range Interpretation Code Description Data Amy rce(s) Supporting Document(s) kathrine covid antigen negative negative Kathrine Covid Anti gen [place] ([facility]) ID Date Data Source [id number] 07/27/2020 09:44:00 PM EDT [facility]) Name Value Range Interpretation Code Description Data Amy rce(s) Supporting Document(s) kathrine covid antigen negative negative Kathrine Covid Anti gen [place] ([facility]) ID Date Data Source [id number] 07/27/2020 09:44:00 PM EDT [facility]) Name Value Range Interpretation Code Description Data Amy rce(s) Supporting Document(s) kathrine covid antigen negative negative Kathrine Covid Anti gen [place] ([facility]) ID Date Data Source [id number] 07/27/2020 09:44:00 PM EDT [facility]) Name Value Range Interpretation Code Description Data Amy rce(s) Supporting Document(s) kathrine covid antigen negative negative Kathrine Covid Anti gen [place] ([facility]) ID Date Data Source [id number] 05/22/2020 10:37:00 AM EST [facility] ([facility], ) Name Value Range Interpretation Code Description Data Amy rce(s) Supporting Document(s) Bacteria identified in Throat by Culture Laboratory test result Normal (applies to non-numeric results) MED[facility] ([facility], ) FULL REPORT IN LAB NOTES (eCW and [facility] ). NORMAL ROSALBA PRESENT ID Date Data Source [id number] 05/20/2020 02:48:00 PM EST [facility]) Name Value Range Interpretation Code Description Data Amy rce(s) Supporting Document(s) peripheral smear-path review Periphe ral Smear-path Review [facility]) ID Date Data Source [id number] 05/20/2020 02:48:00 PM EST [facility]) Name Value Range Interpretation Code Description Data Amy rce(s) Supporting Document(s) peripheral smear-path review Periphe ral Smear-path Review [facility]) ID Date Data Source [id number] 05/20/2020 02:48:00 PM EST [facility] ([facility]) Name Value Range Interpretation Code Description Data Amy rce(s) Supporting Document(s) peripheral smear-path [facility] ID Date Data Source [id number] 05/20/2020 02:48:00 PM EST [facility] ([facility]) Name Value Range Interpretation Code Description Data Amy rce(s) Supporting Document(s) peripheral smear-path review [facility]iphe [facility]al [facility]ear[facility] ID Date Data Source [id number] 05/20/2020 02:48:00 PM [facility] Name Value Range Interpretation Code Description Data Amy rce(s) Supporting Document(s) peripheral smear-path review [facility]iphe [facility]al Smear[facility] ID Date Data Source [id number] 05/20/2020 02:48:00 PM EST [facility] ([facility]) Name Value Range Interpretation Code Description Data Amy rce(s) Supporting Document(s) peripheral smear-path review [facility]iphe [facility]al Smear[facility] ID Date Data Source [id number] 05/20/2020 02:48:00 PM [facility] Name Value Range Interpretation Code Description Data Amy rce(s) Supporting Document(s) peripheral smear-path review Periphe ral Smear[facility] ID Date Data Source [id number] 05/20/2020 02:48:00 PM EST [facility]) Name Value Range Interpretation Code Description Data Amy rce(s) Supporting Document(s) peripheral smear-path review Periphe ral Smear-path Review [facility] ([facility]) ID Date Data Source [id number] 05/20/2020 02:48:00 PM EST [facility] ([facility]) Name Value Range Interpretation Code Description Data Amy rce(s) Supporting Document(s) peripheral smear-path review Periphe ral Smear-path Review [facility] ([facility]) ID Date Data Source [id number] 05/20/2020 02:48:00 PM [facility] Name Value Range Interpretation Code Description Data Amy rce(s) Supporting Document(s) peripheral smear-path review Periphe ral Smear[facility] ID Date Data Source [id number] 05/20/2020 02:48:00 PM EST [facility] ([facility]) Name Value Range Interpretation Code Description Data Amy rce(s) Supporting Document(s) peripheral smear-path review Periphe ral Smear[facility] ID Date Data Source [id number] 05/20/2020 02:48:00 PM [facility] Name Value Range Interpretation Code Description Data Amy rce(s) Supporting Document(s) peripheral smear-path review Periphe ral Smear[facility] ID Date Data Source [id number] 05/20/2020 02:48:00 PM EST [facility] Name Value Range Interpretation Code Description Data Amy rce(s) Supporting Document(s) peripheral smear-path review Periphe ral Smear[facility] ID Date Data Source [id number] 05/20/2020 02:48:00 PM EST [facility] ([facility]) Name Value Range Interpretation Code Description Data Amy rce(s) Supporting Document(s) peripheral smear-path review Periphe ral Smear-path Review [facility] ([facility]) ID Date Data Source [id number] 05/20/2020 02:41:00 PM EST [facility] ([facility]) Name Value Range Interpretation Code Description Data Amy rce(s) Supporting Document(s) ferritin 55 NG/mL 26-388 Ferritin [facility] ([facility]) ID Date Data Source [id number] 05/20/2020 02:41:00 PM EST [facility] ([facility]) Name Value Range Interpretation Code Description Data Amy rce(s) Supporting Document(s) iron (fe) 62 ug/dL 65-175 Below low normal Iron (Fe) [facility] ( [facility]) percent saturation 17.9 % 19.7-50.0 Below low normal Percent Sat uration [facility] ([facility]) total iron binding capacity 346 ug/dL 250-450 Total Ir on Binding Capacity [facility] ([facility]) ID Date Data Source [id number] 05/20/2020 02:41:00 PM EST [facility] ([facility]) Name Value Range Interpretation Code Description Data Amy rce(s) Supporting Document(s) source peripheral smear Source [facility] ([facility]) slide review report Slide Review [facility] ([facility]) reason for review atypical lymphs Reason for Re view [facility] ([facility]) ID Date Data Source [id number] 05/20/2020 02:41:00 PM EST [facility] ([facility]) Name Value Range Interpretation Code Description Data Amy rce(s) Supporting Document(s) white blood count 10.9 10 4.0-10.0 Above high normal White Blood Count [facility] ([facility]) red blood count 5.66 10 4.30-6.10 Red Blood Count ATHE NA ([facility]) hemoglobin 15.2 g/dL 13.5-17.5 Hemoglobin [facility] ([facility]) hematocrit 44.2 % 42.0-52.0 Hematocrit [facility] ([facility]) mean corpuscular volume 78.1 fL 80.0-96.0 Below low normal Mean Corpuscular Volume [facility] ([facility]) mean corpuscular hemoglobin 26.9 pg 27.0-33.0 Below low nor mal Mean Corpuscular Hemoglobin [facility] ([facility]) mean corpuscular HGB conc 34.4 g/dL 32.0-36.5 Mean Corpu scular HGB Conc [facility] ([facility]) platelet count, automated 130 10 150-450 Below low va l Platelet Count, Automated [facility] ([facility]) red cell distribution width 13.5 % 11.5-14.5 Red Cell Distribution Width [facility] ([facility]) neutrophils % 83.3 % 36.0-66.0 Above high normal Neutrophils % [facility]) mono % 2.8 % 2.0-8.0 [place] % [facility] ([facility]) lymph % 12.4 % 24.0-44.0 Below low normal Lymph % [facility] ( [facility]) baso % 0.3 % 0.0-1.0 Baso % [facility] ([facility]) eos % 0.6 % 0.0-3.0 Eos % [facility] ([facility]) immature granulocyte % 0.6 % 0-3.0 Immature Gran ulocyte % [facility] ([facility]) nucleated red blood cell % 0.0 % 0-0 Nucleated Red Blood Cell % [facility] ([facility]) neutrophils # 9.1 10 1.5-8.5 Above high normal Neutrophils # A [facility] ([facility]) mono # 0.3 10 0.0-0.8 [place] # [facility] ([facility]) lymph # 1.4 10 1.5-5.0 Below low normal Lymph # [facility] ( [facility]) eos # 0.1 10 0.0-0.5 Eos # [facility] ([facility]) baso # 0.0 10 0.0-0.2 Baso # [facility] ([facility]) ID Date Data Source [id number] 05/20/2020 02:41:00 PM EST [facility] ([facility]) Name Value Range Interpretation Code Description Data Amy rce(s) Supporting Document(s) glucose, fasting 105 mg/dL 70-100 Above high normal Glucose, Fas ting [facility] ([facility]) creatinine for GFR 1.08 mg/dL 0.70-1.30 Creatinine for GF R [facility] ([facility]) blood urea nitrogen 13 mg/dL 7-18 Blood Urea Nitro gen [facility] ([facility]) glomerular filtration rate > 60.0 >60 Glomerula r Filtration Rate [facility] ([facility]) sodium level 139 mEq/L 136-145 Sodium Level [facility] ([facility]) potassium serum 3.1 mEq/L 3.5-5.1 Below low normal Potassium Seru m [facility] ([facility]) carbon dioxide level 24 mEq/L 21-32 Carbon Dioxide Level [facility] ([facility]) chloride level 107 mEq/L 98-107 Chloride Level [facility] ([facility]) anion gap 8 mEq/L 8-16 Anion Gap [facility] ([facility]) calcium level 9.1 mg/dL 8.5-10.1 Calcium Level [facility] ( [facility]) AST/SGOT 11 U/L 7-37 AST/SGOT [facility] ([facility]) alkaline phosphatase 52 U/L 45-117 Alkaline Phosph atase [facility] ([facility]) ALT/SGPT 20 U/L 12-78 ALT/SGPT [facility] ([facility]) total protein 7.7 gm/dL 6.4-8.2 Total Protein [facility] ( [facility]) bilirubin,total 0.9 mg/dL 0.2-1.0 Bilirubin,total ATHE NA ([facility]) albumin 4.8 gm/dL 3.2-5.2 Albumin [facility] ([facility]) albumin/globulin ratio Albumin/globu maría Ratio [facility] ([facility]) ID Date Data Source [id number] 05/20/2020 02:41:00 PM EST [facility] ([facility]) Name Value Range Interpretation Code Description Data Amy rce(s) Supporting Document(s) ferritin 55 NG/mL 26-388 Ferritin [facility] ([facility]) ID Date Data Source [id number] 05/20/2020 02:41:00 PM EST [facility] ([facility]) Name Value Range Interpretation Code Description Data Amy rce(s) Supporting Document(s) iron (fe) 62 ug/dL 65-175 Below low normal Iron (Fe) [facility] ( [facility]) percent saturation 17.9 % 19.7-50.0 Below low normal Percent Sat uration [facility] ([facility]) total iron binding capacity 346 ug/dL 250-450 Total Ir on Binding Capacity [facility] ([facility]) ID Date Data Source [id number] 05/20/2020 02:41:00 PM EST [facility] ([facility]) Name Value Range Interpretation Code Description Data Amy rce(s) Supporting Document(s) slide review report Slide Review [facility] ([facility]) reason for review atypical lymphs Reason for Re view [facility] ([facility]) source peripheral smear Source [place] ([facility]) ID Date Data Source [id number] 05/20/2020 02:41:00 PM EST [facility] ([facility]) Name Value Range Interpretation Code Description Data May rce(s) Supporting Document(s) white blood count 10.9 10 4.0-10.0 Above high normal White Blood Count [facility] ([facility]) hemoglobin 15.2 g/dL 13.5-17.5 Hemoglobin [facility] ([facility]) red blood count 5.66 10 4.30-6.10 Red Blood Count AT[facility] NA ([facility]) mean corpuscular volume 78.1 fL 80.0-96.0 Below low normal Mean Corpuscular Volume [facility] ([facility]) hematocrit 44.2 % 42.0-52.0 Hematocrit [facility] ([facility]) mean corpuscular HGB conc 34.4 g/dL 32.0-36.5 Mean Corpu scular HGB Conc [facility] ([facility]) mean corpuscular hemoglobin 26.9 pg 27.0-33.0 Below low nor mal Mean Corpuscular Hemoglobin [facility] ([facility]) red cell distribution width 13.5 % 11.5-14.5 Red Cell Distribution Width [facility] ([facility]) platelet count, automated 130 10 150-450 Below low va l Platelet Count, Automated [facility] ([facility]) neutrophils % 83.3 % 36.0-66.0 Above high normal Neutrophils % A [facility] ([facility]) lymph % 12.4 % 24.0-44.0 Below low normal Lymph % [facility] ( [facility]) mono % 2.8 % 2.0-8.0 [place] % [facility] ([facility]) baso % 0.3 % 0.0-1.0 Baso % [facility] ([facility]) eos % 0.6 % 0.0-3.0 Eos % [facility] ([facility]) immature granulocyte % 0.6 % 0-3.0 Immature Gran ulocyte % [facility] ([facility]) nucleated red blood cell % 0.0 % 0-0 Nucleated Red Blood Cell % [facility] ([facility]) neutrophils # 9.1 10 1.5-8.5 Above high normal Neutrophils # A [facility] ([facility]) lymph # 1.4 10 1.5-5.0 Below low normal Lymph # [facility] ( [facility]) mono # 0.3 10 0.0-0.8 [place] # [facility] ([facility]) baso # 0.0 10 0.0-0.2 Baso # [facility] ([facility]) eos # 0.1 10 0.0-0.5 Eos # [facility] ([facility]) ID Date Data Source [id number] 05/20/2020 02:41:00 PM EST [facility] ([facility]) Name Value Range Interpretation Code Description Data Amy rce(s) Supporting Document(s) glucose, fasting 105 mg/dL 70-100 Above high normal Glucose, Fas ting [facility] ([facility]) blood urea nitrogen 13 mg/dL 7-18 Blood Urea Nitro gen [facility] ([facility]) glomerular filtration rate > 60.0 >60 Glomerula r Filtration Rate [facility] ([facility]) creatinine for GFR 1.08 mg/dL 0.70-1.30 Creatinine for GF R [facility] ([facility]) sodium level 139 mEq/L 136-145 Sodium Level [facility] ([facility]) potassium serum 3.1 mEq/L 3.5-5.1 Below low normal Potassium Seru m [facility] ([facility]) chloride level 107 mEq/L 98-107 Chloride Level [facility] ([facility]) anion gap 8 mEq/L 8-16 Anion Gap [facility] ([facility]) carbon dioxide level 24 mEq/L 21-32 Carbon Dioxide Level [facility] ([facility]) calcium level 9.1 mg/dL 8.5-10.1 Calcium Level [facility] ( [facility]) AST/SGOT 11 U/L 7-37 AST/SGOT [facility] ([facility]) ALT/SGPT 20 U/L 12-78 ALT/SGPT [facility] ([facility]) alkaline phosphatase 52 U/L 45-117 Alkaline Phosph atase [facility] ([facility]) bilirubin,total 0.9 mg/dL 0.2-1.0 Bilirubin,total ATHE NA ([facility]) total protein 7.7 gm/dL 6.4-8.2 Total Protein [facility] ( [facility]) albumin 4.8 gm/dL 3.2-5.2 Albumin [facility] ([facility]) albumin/globulin ratio Albumin/globu maría Ratio [facility] ([facility]) ID Date Data Source [id number] 05/20/2020 02:41:00 PM EST [facility] ([facility]) Name Value Range Interpretation Code Description Data Amy rce(s) Supporting Document(s) ferritin 55 NG/mL 26-388 Ferritin [facility] ([facility]) ID Date Data Source [id number] 05/20/2020 02:41:00 PM EST [facility] ([facility]) Name Value Range Interpretation Code Description Data Amy rce(s) Supporting Document(s) iron (fe) 62 ug/dL 65-175 Below low normal Iron (Fe) [facility] ( [facility]) percent saturation 17.9 % 19.7-50.0 Below low normal Percent Sat uration [facility] ([facility]) total iron binding capacity 346 ug/dL 250-450 Total Ir on Binding Capacity [facility] ([facility]) ID Date Data Source [id number] 05/20/2020 02:41:00 PM EST [facility] ([facility]) Name Value Range Interpretation Code Description Data Amy rce(s) Supporting Document(s) slide review report Slide Review [facility] ([facility]) source peripheral smear Source [facility] ([facility]) reason for review atypical lymphs Reason for Re view [facility] ([facility]) ID Date Data Source [id number] 05/20/2020 02:41:00 PM EST [facility] ([facility]) Name Value Range Interpretation Code Description Data Amy rce(s) Supporting Document(s) white blood count 10.9 10 4.0-10.0 Above high normal White Blood Count [facility] ([facility]) red blood count 5.66 10 4.30-6.10 Red Blood Count ATHE NA ([facility]) hemoglobin 15.2 g/dL 13.5-17.5 Hemoglobin [facility] ([facility]) hematocrit 44.2 % 42.0-52.0 Hematocrit [facility] ([facility]) mean corpuscular volume 78.1 fL 80.0-96.0 Below low normal Mean Corpuscular Volume [facility] ([facility]) mean corpuscular hemoglobin 26.9 pg 27.0-33.0 Below low nor mal Mean Corpuscular Hemoglobin [facility] ([facility]) mean corpuscular HGB conc 34.4 g/dL 32.0-36.5 Mean Corpu scular HGB Conc [facility] ([facility]) red cell distribution width 13.5 % 11.5-14.5 Red Cell Distribution Width [facility] ([facility]) platelet count, automated 130 10 150-450 Below low va l Platelet Count, Automated [facility] ([facility]) neutrophils % 83.3 % 36.0-66.0 Above high normal Neutrophils % [facility]) lymph % 12.4 % 24.0-44.0 Below low normal Lymph % [facility] ( [facility]) mono % 2.8 % 2.0-8.0 [place] % [facility] ([facility]) eos % 0.6 % 0.0-3.0 Eos % [facility] ([facility]) baso % 0.3 % 0.0-1.0 Baso % [facility] ([facility]) immature granulocyte % 0.6 % 0-3.0 Immature Gran ulocyte % [facility] ([facility]) nucleated red blood cell % 0.0 % 0-0 Nucleated Red Blood Cell % [facility] ([facility]) neutrophils # 9.1 10 1.5-8.5 Above high normal Neutrophils # A [facility] ([facility]) lymph # 1.4 10 1.5-5.0 Below low normal Lymph # [facility] ( [facility]) eos # 0.1 10 0.0-0.5 Eos # [facility] ([facility]) mono # 0.3 10 0.0-0.8 [place] # [facility] ([facility]) baso # 0.0 10 0.0-0.2 Baso # [facility] ([facility]) ID Date Data Source [id number] 05/20/2020 02:41:00 PM EST [facility] ([facility]) Name Value Range Interpretation Code Description Data Amy rce(s) Supporting Document(s) blood urea nitrogen 13 mg/dL 7-18 Blood Urea Nitro gen [facility] ([facility]) glucose, fasting 105 mg/dL 70-100 Above high normal Glucose, Fas ting [facility] ([facility]) creatinine for GFR 1.08 mg/dL 0.70-1.30 Creatinine for GF R [facility] ([facility]) sodium level 139 mEq/L 136-145 Sodium Level [facility] ([facility]) glomerular filtration rate > 60.0 >60 Glomerula r Filtration Rate [facility] ([facility]) chloride level 107 mEq/L 98-107 Chloride Level [place] ([facility]) potassium serum 3.1 mEq/L 3.5-5.1 Below low normal Potassium Seru m [facility] ([facility]) carbon dioxide level 24 mEq/L 21-32 Carbon Dioxide Level [facility] ([facility]) anion gap 8 mEq/L 8-16 Anion Gap [facility] ([facility]) calcium level 9.1 mg/dL 8.5-10.1 Calcium Level [facility] ( [facility]) AST/SGOT 11 U/L 7-37 AST/SGOT [facility] ([facility]) ALT/SGPT 20 U/L 12-78 ALT/SGPT [facility] ([facility]) alkaline phosphatase 52 U/L 45-117 Alkaline Phosph atase [facility] ([facility]) bilirubin,total 0.9 mg/dL 0.2-1.0 Bilirubin,total ATHE NA ([facility]) albumin 4.8 gm/dL 3.2-5.2 Albumin [facility] ([facility]) total protein 7.7 gm/dL 6.4-8.2 Total Protein [facility] ( [facility]) albumin/globulin ratio Albumin/globu maría Ratio [facility] ([facility]) ID Date Data Source [id number] 05/20/2020 02:41:00 PM EST [facility] ([facility]) Name Value Range Interpretation Code Description Data Amy rce(s) Supporting Document(s) ferritin 55 NG/mL 26-388 Ferritin [facility] ([facility]) ID Date Data Source [id number] 05/20/2020 02:41:00 PM EST [facility] ([facility]) Name Value Range Interpretation Code Description Data Amy rce(s) Supporting Document(s) iron (fe) 62 ug/dL 65-175 Below low normal Iron (Fe) [facility] ( [facility]) total iron binding capacity 346 ug/dL 250-450 Total Ir on Binding Capacity [facility] ([facility]) percent saturation 17.9 % 19.7-50.0 Below low normal Percent Sat uration [facility] ([facility]) ID Date Data Source [id number] 05/20/2020 02:41:00 PM EST [facility] ([facility]) Name Value Range Interpretation Code Description Data Amy rce(s) Supporting Document(s) slide review report Slide Review [facility] ([facility]) source peripheral smear Source [place] ([facility]) reason for review atypical lymphs Reason for Re view [facility] ([facility]) ID Date Data Source [id number] 05/20/2020 02:41:00 PM EST [facility] ([facility]) Name Value Range Interpretation Code Description Data Amy rce(s) Supporting Document(s) white blood count 10.9 10 4.0-10.0 Above high normal White Blood Count [facility] ([facility]) red blood count 5.66 10 4.30-6.10 Red Blood Count ATHE ([facility]) hemoglobin 15.2 g/dL 13.5-17.5 Hemoglobin [facility] ([facility]) hematocrit 44.2 % 42.0-52.0 Hematocrit [facility] ([facility]) mean corpuscular volume 78.1 fL 80.0-96.0 Below low normal Mean Corpuscular Volume [facility] ([facility]) mean corpuscular hemoglobin 26.9 pg 27.0-33.0 Below low nor mal Mean Corpuscular Hemoglobin [facility] ([facility]) red cell distribution width 13.5 % 11.5-14.5 Red Cell Distribution Width [facility] ([facility]) mean corpuscular HGB conc 34.4 g/dL 32.0-36.5 Mean Corpu scular HGB Conc [facility] ([facility]) neutrophils % 83.3 % 36.0-66.0 Above high normal Neutrophils % A [facility] ([facility]) platelet count, automated 130 10 150-450 Below low va l Platelet Count, Automated [facility] ([facility]) mono % 2.8 % 2.0-8.0 [place] % [place] ([facility]) lymph % 12.4 % 24.0-44.0 Below low normal Lymph % [facility] ( [facility] [facility] baso % 0.3 % 0.0-1.0 Baso % PINK[facility] ([facility]) eos % 0.6 % 0.0-3.0 Eos % PINK[facility] ([facility]) nucleated red blood cell % 0.0 % 0-0 Nucleated Red Blood Cell % [facility] ([facility]) immature granulocyte % 0.6 % 0-3.0 Immature Gran ulocyte % P[facility] ([facility]) lymph # 1.4 10 1.5-5.0 Below low normal Lymph # PINKY ( [facility]) neutrophils # 9.1 10 1.5-8.5 Above high normal Neutrophils # A THENA ([facility]) mono # 0.3 10 0.0-0.8 [place] # [facility]INKY ([facility]) eos # 0.1 10 0.0-0.5 Eos # [facility] ([facility]) baso # 0.0 10 0.0-0.2 Baso # [facility] ([facility]) ID Date Data Source [id number] 05/20/2020 02:41:00 PM EST [place] ([facility]) Name Value Range Interpretation Code Description Data Amy rce(s) Supporting Document(s) glucose, fasting 105 mg/dL 70-100 Above high normal Glucose, Fas ting [facility] ([facility]) glomerular filtration rate > 60.0 >60 Glomerula r Filtration Rate [facility] ([facility]) blood urea nitrogen 13 mg/dL 7-18 Blood Urea Nitro gen [facility] ([facility]) creatinine for GFR 1.08 mg/dL 0.70-1.30 Creatinine for GF R PINK[facility] ([facility]) sodium level 139 mEq/L 136-145 Sodium Level PINKY ([facility]) potassium serum 3.1 mEq/L 3.5-5.1 Below low normal Potassium Seru m [facility] ([facility]) chloride level 107 mEq/L 98-107 Chloride Level [facility] ([facility]) anion gap 8 mEq/L 8-16 Anion Gap [facility] ([facility]) carbon dioxide level 24 mEq/L 21-32 Carbon Dioxide Level [facility] ([facility]) AST/SGOT 11 U/L 7-37 AST/SGOT [facility] ([facility]) calcium level 9.1 mg/dL 8.5-10.1 Calcium Level P[facility] ( [facility]) ALT/SGPT 20 U/L 12-78 ALT/SGPT [facility] ([facility]) alkaline phosphatase 52 U/L 45-117 Alkaline Phosph atase [facility] ([facility]) total protein 7.7 gm/dL 6.4-8.2 Total Protein [facility] ( [facility]) bilirubin,total 0.9 mg/dL 0.2-1.0 Bilirubin,total ATHE NA ([facility]) albumin/globulin ratio Albumin/globu mraía Ratio [facility] ([facility]) albumin 4.8 gm/dL 3.2-5.2 Albumin [facility] ([facility]) ID Date Data Source [id number] 05/20/2020 02:41:00 PM EST [place] ([facility]) Name Value Range Interpretation Code Description Data Amy rce(s) Supporting Document(s) ferritin 55 NG/mL 26-388 Ferritin [facility] ([facility]) ID Date Data Source [id number] 05/20/2020 02:41:00 PM EST [place] ([facility]) Name Value Range Interpretation Code Description Data Amy rce(s) Supporting Document(s) iron (fe) 62 ug/dL 65-175 Below low normal Iron (Fe) [facility] ( [facility]) total iron binding capacity 346 ug/dL 250-450 Total Ir on Binding Capacity [facility] ([facility]) percent saturation 17.9 % 19.7-50.0 Below low normal Percent Sat uration [facility] ([facility]) ID Date Data Source [id number] 05/20/2020 02:41:00 PM EST [place] ([facility]) Name Value Range Interpretation Code Description Data Amy rce(s) Supporting Document(s) slide review report Slide Review [facility] ([facility]) source peripheral smear Source [facility] ([facility]) reason for review atypical lymphs Reason for Re view [facility] ([facility]) ID Date Data Source [id number] 05/20/2020 02:41:00 PM EST [place] ([facility]) Name Value Range Interpretation Code Description Data Amy rce(s) Supporting Document(s) white blood count 10.9 10 4.0-10.0 Above high normal White Blood Count [facility] ([facility]) red blood count 5.66 10 4.30-6.10 Red Blood Count ATHE NA ([facility]) hematocrit 44.2 % 42.0-52.0 Hematocrit [facility] ([facility]) hemoglobin 15.2 g/dL 13.5-17.5 Hemoglobin [facility] ([facility]) mean corpuscular hemoglobin 26.9 pg 27.0-33.0 Below low nor mal Mean Corpuscular Hemoglobin [facility] ([facility]) mean corpuscular HGB conc 34.4 g/dL 32.0-36.5 Mean Corpu scular HGB Conc [facility] ([facility]) mean corpuscular volume 78.1 fL 80.0-96.0 Below low normal Mean Corpuscular Volume [facility] ([facility]) platelet count, automated 130 10 150-450 Below low va l Platelet Count, Automated [facility] ([facility]) red cell distribution width 13.5 % 11.5-14.5 Red Cell Distribution Width [facility] ([facility]) neutrophils % 83.3 % 36.0-66.0 Above high normal Neutrophils % A THENA ([facility]) lymph % 12.4 % 24.0-44.0 Below low normal Lymph % [facility] ( [facility]) eos % 0.6 % 0.0-3.0 Eos % [facility] ([facility]) mono % 2.8 % 2.0-8.0 [place] % [facility] ([facility]) baso % 0.3 % 0.0-1.0 Baso % [place] ([facility]) immature granulocyte % 0.6 % 0-3.0 Immature Gran ulocyte % [facility] ([facility]) nucleated red blood cell % 0.0 % 0-0 Nucleated Red Blood Cell % [facility] ([facility]) neutrophils # 9.1 10 1.5-8.5 Above high normal Neutrophils # A THENA ([facility]) mono # 0.3 10 0.0-0.8 [place] # [facility] ([facility]) lymph # 1.4 10 1.5-5.0 Below low normal Lymph # [facility] ( [facility]) eos # 0.1 10 0.0-0.5 Eos # [facility] ([facility]) baso # 0.0 10 0.0-0.2 Baso # [facility] ([facility]) ID Date Data Source [id number] 05/20/2020 02:41:00 PM EST [place] ([facility]) Name Value Range Interpretation Code Description Data Amy rce(s) Supporting Document(s) glucose, fasting 105 mg/dL 70-100 Above high normal Glucose, Fas ting [facility] ([facility]) blood urea nitrogen 13 mg/dL 7-18 Blood Urea Nitro gen [facility] ([facility]) creatinine for GFR 1.08 mg/dL 0.70-1.30 Creatinine for GF R [facility] ([facility]) sodium level 139 mEq/L 136-145 Sodium Level [facility] ([facility]) glomerular filtration rate > 60.0 >60 Glomerula r Filtration Rate [facility] ([facility]) potassium serum 3.1 mEq/L 3.5-5.1 Below low normal Potassium Seru m [facility] ([facility]) chloride level 107 mEq/L 98-107 Chloride Level [facility] ([facility]) carbon dioxide level 24 mEq/L 21-32 Carbon Dioxide Level [facility] ([facility]) anion gap 8 mEq/L 8-16 Anion Gap [facility] ([facility]) calcium level 9.1 mg/dL 8.5-10.1 Calcium Level [facility] ( [facility]) AST/SGOT 11 U/L 7-37 AST/SGOT [facility] ([facility]) alkaline phosphatase 52 U/L 45-117 Alkaline Phosph atase [facility] ([facility]) ALT/SGPT 20 U/L 12-78 ALT/SGPT [facility] ([facility]) total protein 7.7 gm/dL 6.4-8.2 Total Protein [facility] ( [facility]) bilirubin,total 0.9 mg/dL 0.2-1.0 Bilirubin,total ATHE NA ([facility]) albumin/globulin ratio Albumin/globu maría Ratio [facility] ([facility]) albumin 4.8 gm/dL 3.2-5.2 Albumin [facility] ([facility]) ID Date Data Source [id number] 05/20/2020 02:41:00 PM EST [place] ([facility]) Name Value Range Interpretation Code Description Data Amy rce(s) Supporting Document(s) ferritin 55 NG/mL 26-388 Ferritin [facility] ([facility]) ID Date Data Source [id number] 05/20/2020 02:41:00 PM EST [place] ([facility]) Name Value Range Interpretation Code Description Data Amy rce(s) Supporting Document(s) iron (fe) 62 ug/dL 65-175 Below low normal Iron (Fe) [facility] ( [facility]) total iron binding capacity 346 ug/dL 250-450 Total Ir on Binding Capacity [facility] ([facility]) percent saturation 17.9 % 19.7-50.0 Below low normal Percent Sat uration [facility] ([facility]) ID Date Data Source [id number] 05/20/2020 02:41:00 PM EST [place] ([facility]) Name Value Range Interpretation Code Description Data Amy rce(s) Supporting Document(s) slide review report Slide Review [facility] ([facility]) reason for review atypical lymphs Reason for Re view [facility] ([facility]) source peripheral smear Source [place] ([facility]) ID Date Data Source [id number] 05/20/2020 02:41:00 PM EST [place] ([facility]) Name Value Range Interpretation Code Description Data Amy rce(s) Supporting Document(s) white blood count 10.9 10 4.0-10.0 Above high normal White Blood Count [facility] ([facility]) hemoglobin 15.2 g/dL 13.5-17.5 Hemoglobin [facility] ([facility]) red blood count 5.66 10 4.30-6.10 Red Blood Count ATHE NA ([facility]) hematocrit 44.2 % 42.0-52.0 Hematocrit [facility] ([facility]) mean corpuscular volume 78.1 fL 80.0-96.0 Below low normal Mean Corpuscular Volume [facility] ([facility]) mean corpuscular HGB conc 34.4 g/dL 32.0-36.5 Mean Corpu scular HGB Conc [facility] ([facility]) mean corpuscular hemoglobin 26.9 pg 27.0-33.0 Below low nor mal Mean Corpuscular Hemoglobin [facility] ([facility]) platelet count, automated 130 10 150-450 Below low va l Platelet Count, Automated [facility] ([facility]) red cell distribution width 13.5 % 11.5-14.5 Red Cell Distribution Width [facility] ([facility]) lymph % 12.4 % 24.0-44.0 Below low normal Lymph % [facility] ( [facility]) neutrophils % 83.3 % 36.0-66.0 Above high normal Neutrophils % A THENA ([facility]) mono % 2.8 % 2.0-8.0 [place] % [facility] ([facility]) eos % 0.6 % 0.0-3.0 Eos % [facility] ([facility]) baso % 0.3 % 0.0-1.0 Baso % [facility] ([facility]) immature granulocyte % 0.6 % 0-3.0 Immature Gran ulocyte % [facility] ([facility]) nucleated red blood cell % 0.0 % 0-0 Nucleated Red Blood Cell % [facility] ([facility]) mono # 0.3 10 0.0-0.8 [place] # [facility] ([facility]) lymph # 1.4 10 1.5-5.0 Below low normal Lymph # [facility] ( [facility]) neutrophils # 9.1 10 1.5-8.5 Above high normal Neutrophils # A THENA ([facility]) eos # 0.1 10 0.0-0.5 Eos # [facility] ([facility]) baso # 0.0 10 0.0-0.2 Baso # [facility] ([facility]) ID Date Data Source [id number] 05/20/2020 02:41:00 PM EST [place] ([facility]) Name Value Range Interpretation Code Description Data Amy rce(s) Supporting Document(s) glucose, fasting 105 mg/dL 70-100 Above high normal Glucose, Fas ting [facility] ([facility]) blood urea nitrogen 13 mg/dL 7-18 Blood Urea Nitro gen [facility] ([facility]) creatinine for GFR 1.08 mg/dL 0.70-1.30 Creatinine for GF R [facility] ([facility]) glomerular filtration rate > 60.0 >60 Glomerula r Filtration Rate [facility] ([facility]) sodium level 139 mEq/L 136-145 Sodium Level [facility] ([facility]) potassium serum 3.1 mEq/L 3.5-5.1 Below low normal Potassium Seru m [facility] ([facility]) chloride level 107 mEq/L 98-107 Chloride Level [facility] ([facility]) carbon dioxide level 24 mEq/L 21-32 Carbon Dioxide Level [facility] ([facility]) anion gap 8 mEq/L 8-16 Anion Gap [facility] ([facility]) calcium level 9.1 mg/dL 8.5-10.1 Calcium Level [facility] ( [facility]) AST/SGOT 11 U/L 7-37 AST/SGOT [facility] ([facility]) ALT/SGPT 20 U/L 12-78 ALT/SGPT [facility] ([facility]) alkaline phosphatase 52 U/L 45-117 Alkaline Phosph atase [facility] ([facility]) bilirubin,total 0.9 mg/dL 0.2-1.0 Bilirubin,total ATHE ([facility]) total protein 7.7 gm/dL 6.4-8.2 Total Protein [facility] ( [facility]) albumin 4.8 gm/dL 3.2-5.2 Albumin [facility] ([facility]) albumin/globulin ratio Albumin/globu maría Ratio [facility] ([facility]) ID Date Data Source [id number] 05/20/2020 02:41:00 PM EST [place] ([facility]) Name Value Range Interpretation Code Description Data Amy rce(s) Supporting Document(s) ferritin 55 NG/mL 26-388 Ferritin [facility] ([facility]) ID Date Data Source [id number] 05/20/2020 02:41:00 PM EST [place] ([facility]) Name Value Range Interpretation Code Description Data Amy rce(s) Supporting Document(s) iron (fe) 62 ug/dL 65-175 Below low normal Iron (Fe) [facility] ( [facility]) total iron binding capacity 346 ug/dL 250-450 Total Ir on Binding Capacity [facility] ([facility]) percent saturation 17.9 % 19.7-50.0 Below low normal Percent Sat uration [facility] ([facility]) ID Date Data Source [id number] 05/20/2020 02:41:00 PM EST [place] ([facility]) Name Value Range Interpretation Code Description Data Amy rce(s) Supporting Document(s) slide review report Slide Review IPNKY ([facility]) source peripheral smear Source [place] ([facility]) reason for review atypical lymphs Reason for Re view [facility] ([facility]) ID Date Data Source [id number] 05/20/2020 02:41:00 PM EST [place] ([facility]) Name Value Range Interpretation Code Description Data Amy rce(s) Supporting Document(s) white blood count 10.9 10 4.0-10.0 Above high normal White Blood Count [facility] ([facility]) red blood count 5.66 10 4.30-6.10 Red Blood Count ATHE NA ([facility]) hemoglobin 15.2 g/dL 13.5-17.5 Hemoglobin [facility] ([facility]) hematocrit 44.2 % 42.0-52.0 Hematocrit [facility] ([facility]) mean corpuscular volume 78.1 fL 80.0-96.0 Below low normal Mean Corpuscular Volume [facility] ([facility]) mean corpuscular hemoglobin 26.9 pg 27.0-33.0 Below low nor mal Mean Corpuscular Hemoglobin [facility] ([facility]) mean corpuscular HGB conc 34.4 g/dL 32.0-36.5 Mean Corpu scular HGB Conc [facility] ([facility]) red cell distribution width 13.5 % 11.5-14.5 Red Cell Distribution Width [facility] ([facility]) neutrophils % 83.3 % 36.0-66.0 Above high normal Neutrophils % A THENA ([facility]) platelet count, automated 130 10 150-450 Below low va l Platelet Count, Automated [place] ([facility]) lymph % 12.4 % 24.0-44.0 Below low normal Lymph % [facility] ( [facility]) mono % 2.8 % 2.0-8.0 [place] % [facility] ([facility]) baso % 0.3 % 0.0-1.0 Baso % [facility] ([facility]) eos % 0.6 % 0.0-3.0 Eos % [place] ([facility]) immature granulocyte % 0.6 % 0-3.0 Immature Gran ulocyte % [facility] ([facility]) nucleated red blood cell % 0.0 % 0-0 Nucleated Red Blood Cell % [facility] ([facility]) lymph # 1.4 10 1.5-5.0 Below low normal Lymph # [facility] ( [facility]) neutrophils # 9.1 10 1.5-8.5 Above high normal Neutrophils # A THENA ([facility]) mono # 0.3 10 0.0-0.8 [place] # [facility] ([facility]) eos # 0.1 10 0.0-0.5 Eos # [facility] ([facility]) baso # 0.0 10 0.0-0.2 Baso # [facility] ([facility]) ID Date Data Source [id number] 05/20/2020 02:41:00 PM EST [place] ([facility]) Name Value Range Interpretation Code Description Data Amy rce(s) Supporting Document(s) glucose, fasting 105 mg/dL 70-100 Above high normal Glucose, Fas ting [place] ([facility]) blood urea nitrogen 13 mg/dL 7-18 Blood Urea Nitro gen [place] ([facility]) creatinine for GFR 1.08 mg/dL 0.70-1.30 Creatinine for GF R [place] ([facility]) glomerular filtration rate > 60.0 >60 Glomerula r Filtration Rate [facility] ([facility]) potassium serum 3.1 mEq/L 3.5-5.1 Below low normal Potassium Seru m [facility] ([facility]) sodium level 139 mEq/L 136-145 Sodium Level [facility] ([facility]) chloride level 107 mEq/L 98-107 Chloride Level [facility] ([facility]) carbon dioxide level 24 mEq/L 21-32 Carbon Dioxide Level [facility] ([facility]) anion gap 8 mEq/L 8-16 Anion Gap [facility] ([facility]) calcium level 9.1 mg/dL 8.5-10.1 Calcium Level [facility] ( [facility]) ALT/SGPT 20 U/L 12-78 ALT/SGPT [facility] ([facility]) AST/SGOT 11 U/L 7-37 AST/SGOT [facility] ([facility]) alkaline phosphatase 52 U/L 45-117 Alkaline Phosph atase [facility] ([facility]) bilirubin,total 0.9 mg/dL 0.2-1.0 Bilirubin,total ATHE NA ([facility]) albumin 4.8 gm/dL 3.2-5.2 Albumin [facility] ([facility]) total protein 7.7 gm/dL 6.4-8.2 Total Protein [facility] ( [facility]) albumin/globulin ratio Albumin/globu maría Ratio [facility] ([facility]) ID Date Data Source [id number] 05/20/2020 02:41:00 PM EST [place] ([facility]) Name Value Range Interpretation Code Description Data Amy rce(s) Supporting Document(s) ferritin 55 NG/mL 26-388 Ferritin [facility] ([facility]) ID Date Data Source [id number] 05/20/2020 02:41:00 PM EST [place] ([facility]) Name Value Range Interpretation Code Description Data Amy rce(s) Supporting Document(s) iron (fe) 62 ug/dL 65-175 Below low normal Iron (Fe) [facility] ( [facility]) total iron binding capacity 346 ug/dL 250-450 Total Ir on Binding Capacity [facility] ([facility]) percent saturation 17.9 % 19.7-50.0 Below low normal Percent Sat uration [facility] ([facility]) ID Date Data Source [id number] 05/20/2020 02:41:00 PM EST [place] ([facility]) Name Value Range Interpretation Code Description Data Amy rce(s) Supporting Document(s) slide review report Slide Review [facility] ([facility]) source peripheral smear Source [place] ([facility]) reason for review atypical lymphs Reason for Re view [facility] ([facility]) ID Date Data Source [id number] 05/20/2020 02:41:00 PM EST [place] ([facility]) Name Value Range Interpretation Code Description Data Amy rce(s) Supporting Document(s) white blood count 10.9 10 4.0-10.0 Above high normal White Blood Count [facility] ([facility]) hemoglobin 15.2 g/dL 13.5-17.5 Hemoglobin [facility] ([facility]) red blood count 5.66 10 4.30-6.10 Red Blood Count ATHE ([facility]) hematocrit 44.2 % 42.0-52.0 Hematocrit [facility] ([facility]) mean corpuscular volume 78.1 fL 80.0-96.0 Below low normal Mean Corpuscular Volume [facility] ([facility]) mean corpuscular hemoglobin 26.9 pg 27.0-33.0 Below low nor mal Mean Corpuscular Hemoglobin [facility] ([facility]) mean corpuscular HGB conc 34.4 g/dL 32.0-36.5 Mean Corpu scular HGB Conc [facility] ([facility]) platelet count, automated 130 10 150-450 Below low va l Platelet Count, Automated [facility] ([facility]) red cell distribution width 13.5 % 11.5-14.5 Red Cell Distribution Width [facility] ([facility]) neutrophils % 83.3 % 36.0-66.0 Above high normal Neutrophils % A THENA ([facility]) lymph % 12.4 % 24.0-44.0 Below low normal Lymph % [facility] ( [facility]) baso % 0.3 % 0.0-1.0 Baso % [facility] ([facility]) mono % 2.8 % 2.0-8.0 [place] % [facility]INK[facility] ([facility]) eos % 0.6 % 0.0-3.0 Eos % P[facility] ([facility]) immature granulocyte % 0.6 % 0-3.0 Immature Gran ulocyte % [facility] ([facility]) neutrophils # 9.1 10 1.5-8.5 Above high normal Neutrophils # A THENA ([facility]) nucleated red blood cell % 0.0 % 0-0 Nucleated Red Blood Cell % [facility] ([facility]) mono # 0.3 10 0.0-0.8 [place] # PINKY ([facility]) lymph # 1.4 10 1.5-5.0 Below low normal Lymph # [facility] ( [facility]) baso # 0.0 10 0.0-0.2 Baso # [facility] ([facility]) eos # 0.1 10 0.0-0.5 Eos # [facility] ([facility]) ID Date Data Source [id number] 05/20/2020 02:41:00 PM EST [place] ([facility]) Name Value Range Interpretation Code Description Data Amy rce(s) Supporting Document(s) glucose, fasting 105 mg/dL 70-100 Above high normal Glucose, Fas ting [facility] ([facility]) blood urea nitrogen 13 mg/dL 7-18 Blood Urea Nitro gen [facility] ([facility]) creatinine for GFR 1.08 mg/dL 0.70-1.30 Creatinine for GF R [facility] ([facility]) glomerular filtration rate > 60.0 >60 Glomerula r Filtration Rate [facility] ([facility]) potassium serum 3.1 mEq/L 3.5-5.1 Below low normal Potassium Seru m [facility] ([facility]) sodium level 139 mEq/L 136-145 Sodium Level PINK[facility] (No [facility]) chloride level 107 mEq/L 98-107 Chloride Level [facility] ([facility]) carbon dioxide level 24 mEq/L 21-32 Carbon Dioxide Level [facility] ([facility]) anion gap 8 mEq/L 8-16 Anion Gap [facility] ([facility]) calcium level 9.1 mg/dL 8.5-10.1 Calcium Level [facility] ( [facility]) AST/SGOT 11 U/L 7-37 AST/SGOT [facility] ([facility]) ALT/SGPT 20 U/L 12-78 ALT/SGPT [facility] ([facility]) alkaline phosphatase 52 U/L 45-117 Alkaline Phosph atase [facility] ([facility]) bilirubin,total 0.9 mg/dL 0.2-1.0 Bilirubin,total ATHE ([facility]) albumin 4.8 gm/dL 3.2-5.2 Albumin [facility] ([facility]) total protein 7.7 gm/dL 6.4-8.2 Total Protein [facility] ( [facility]) albumin/globulin ratio Albumin/globu maría Ratio [facility] ([facility]) ID Date Data Source [id number] 05/20/2020 02:41:00 PM EST [facility] ([facility]) Name Value Range Interpretation Code Description Data Amy rce(s) Supporting Document(s) ferritin 55 NG/mL 26-388 Ferritin [facility] ([facility]) ID Date Data Source [id number] 05/20/2020 02:41:00 PM EST [place] ([facility]) Name Value Range Interpretation Code Description Data Amy rce(s) Supporting Document(s) percent saturation 17.9 % 19.7-50.0 Below low normal Percent Sat uration [facility] ([facility]) total iron binding capacity 346 ug/dL 250-450 Total Ir on Binding Capacity [facility] ([facility]) iron (fe) 62 ug/dL 65-175 Below low normal Iron (Fe) [facility] ( [facility]) ID Date Data Source [id number] 05/20/2020 02:41:00 PM EST [facility] ([facility]) Name Value Range Interpretation Code Description Data Amy rce(s) Supporting Document(s) source peripheral smear Source [facility] ([facility]) reason for review atypical lymphs Reason for Re view [facility] ([facility]) slide review report Slide Review PINK[facility] (No [facility]) ID Date Data Source [id number] 05/20/2020 02:41:00 PM EST [place] ([facility]) Name Value Range Interpretation Code Description Data Amy rce(s) Supporting Document(s) white blood count 10.9 10 4.0-10.0 Above high normal White Blood Count [facility] ([facility]) red blood count 5.66 10 4.30-6.10 Red Blood Count ATHE ([facility]) hematocrit 44.2 % 42.0-52.0 Hematocrit PINKY ([facility]) hemoglobin 15.2 g/dL 13.5-17.5 Hemoglobin PINK[place] ([facility]) mean corpuscular HGB conc 34.4 g/dL 32.0-36.5 Mean Corpu scular HGB Conc PINK[place] ([facility]) mean corpuscular volume 78.1 fL 80.0-96.0 Below low normal Mean Corpuscular Volume P[place] ([facility]) mean corpuscular hemoglobin 26.9 pg 27.0-33.0 Below low nor mal Mean Corpuscular Hemoglobin [place] ([facility]) platelet count, automated 130 10 150-450 Below low va l Platelet Count, Automated [place] ([facility]) red cell distribution width 13.5 % 11.5-14.5 Red Cell Distribution Width [place] ([facility]) lymph % 12.4 % 24.0-44.0 Below low normal Lymph % PINK[place] ( [facility]) neutrophils % 83.3 % 36.0-66.0 Above high normal Neutrophils % A THENA ([facility]) mono % 2.8 % 2.0-8.0 [place] % [place] ([facility]) eos % 0.6 % 0.0-3.0 Eos % [place] ([facility]) immature granulocyte % 0.6 % 0-3.0 Immature Gran ulocyte % [place] ([facility]) nucleated red blood cell % 0.0 % 0-0 Nucleated Red Blood Cell % [place] ([facility]) baso % 0.3 % 0.0-1.0 Baso % [place] ([facility]) neutrophils # 9.1 10 1.5-8.5 Above high normal Neutrophils # A THENA ([facility]) lymph # 1.4 10 1.5-5.0 Below low normal Lymph # PINK[place] ( [facility]) eos # 0.1 10 0.0-0.5 Eos # [place] ([facility]) mono # 0.3 10 0.0-0.8 [place] # PINKY ([facility]) baso # 0.0 10 0.0-0.2 Baso # [facility] ([facility]) ID Date Data Source [id number] 05/20/2020 02:41:00 PM EST PINK[place] ([facility]) Name Value Range Interpretation Code Description Data Amy rce(s) Supporting Document(s) glucose, fasting 105 mg/dL 70-100 Above high normal Glucose, Fas ting [place] ([facility]) creatinine for GFR 1.08 mg/dL 0.70-1.30 Creatinine for GF R [place] ([facility]) blood urea nitrogen 13 mg/dL 7-18 Blood Urea Nitro gen [place] ([facility]) glomerular filtration rate > 60.0 >60 Glomerula r Filtration Rate [place] ([facility]) sodium level 139 mEq/L 136-145 Sodium Level [facility] (No [facility]) chloride level 107 mEq/L 98-107 Chloride Level [place] ([facility]) potassium serum 3.1 mEq/L 3.5-5.1 Below low normal Potassium Seru m [place] ([facility]) carbon dioxide level 24 mEq/L 21-32 Carbon Dioxide Level [place] ([facility]) anion gap 8 mEq/L 8-16 Anion Gap [facility] ([facility]) calcium level 9.1 mg/dL 8.5-10.1 Calcium Level [place] ( [facility]) AST/SGOT 11 U/L 7-37 AST/SGOT [place] ([facility]) ALT/SGPT 20 U/L 12-78 ALT/SGPT [place] ([facility]) alkaline phosphatase 52 U/L 45-117 Alkaline Phosph atase [place] ([facility]) bilirubin,total 0.9 mg/dL 0.2-1.0 Bilirubin,total ATHE ([facility]) total protein 7.7 gm/dL 6.4-8.2 Total Protein [place]INK[place] ( [facility]) albumin 4.8 gm/dL 3.2-5.2 Albumin [facility] ([facility]) albumin/globulin ratio Albumin/globu maría Ratio [facility] ([facility]) ID Date Data Source [id number] 05/20/2020 02:41:00 PM EST [place] ([facility]) Name Value Range Interpretation Code Description Data Amy rce(s) Supporting Document(s) ferritin 55 NG/mL 26-388 Ferritin [facility] ([facility]) ID Date Data Source [id number] 05/20/2020 02:41:00 PM EST [place] ([facility]) Name Value Range Interpretation Code Description Data Amy rce(s) Supporting Document(s) total iron binding capacity 346 ug/dL 250-450 Total Ir on Binding Capacity [facility] ([facility]) iron (fe) 62 ug/dL 65-175 Below low normal Iron (Fe) P[facility] ( [facility]) percent saturation 17.9 % 19.7-50.0 Below low normal Percent Sat uration P[facility] ([facility]) ID Date Data Source [id number] 05/20/2020 02:41:00 PM EST [place] ([facility]) Name Value Range Interpretation Code Description Data Amy rce(s) Supporting Document(s) slide review report Slide Review [facility]INK[facility] (No [facility]) source peripheral smear Source P[facility] ([facility]) reason for review atypical lymphs Reason for Re view [facility] ([facility]) ID Date Data Source [id number] 05/20/2020 02:41:00 PM EST [place] ([facility]) Name Value Range Interpretation Code Description Data Amy rce(s) Supporting Document(s) white blood count 10.9 10 4.0-10.0 Above high normal White Blood Count P[facility] ([facility]) red blood count 5.66 10 4.30-6.10 Red Blood Count ATHE ([facility]) hemoglobin 15.2 g/dL 13.5-17.5 Hemoglobin [place] ([facility]) hematocrit 44.2 % 42.0-52.0 Hematocrit [facility] ([facility]) mean corpuscular volume 78.1 fL 80.0-96.0 Below low normal Mean Corpuscular Volume PINK[facility] ([facility]) mean corpuscular hemoglobin 26.9 pg 27.0-33.0 Below low nor mal Mean Corpuscular Hemoglobin P[facility] ([facility]) red cell distribution width 13.5 % 11.5-14.5 Red Cell Distribution Width [facility] ([facility]) mean corpuscular HGB conc 34.4 g/dL 32.0-36.5 Mean Corpu scular HGB Conc [facility] ([facility]) neutrophils % 83.3 % 36.0-66.0 Above high normal Neutrophils % A THENA ([facility]) platelet count, automated 130 10 150-450 Below low va l Platelet Count, Automated [place] ([facility]) lymph % 12.4 % 24.0-44.0 Below low normal Lymph % [facility] ( [facility]) mono % 2.8 % 2.0-8.0 [place] % [facility] ([facility]) baso % 0.3 % 0.0-1.0 Baso % [facility] ([facility]) immature granulocyte % 0.6 % 0-3.0 Immature Gran ulocyte % PINKY ([facility]) eos % 0.6 % 0.0-3.0 Eos % [place] ([facility]) neutrophils # 9.1 10 1.5-8.5 Above high normal Neutrophils # A THENA ([facility]) nucleated red blood cell % 0.0 % 0-0 Nucleated Red Blood Cell % [place] ([facility]) mono # 0.3 10 0.0-0.8 [place] # PINKY ([facility]) lymph # 1.4 10 1.5-5.0 Below low normal Lymph # PINKY ( [facility]) baso # 0.0 10 0.0-0.2 Baso # [facility] ([facility]) eos # 0.1 10 0.0-0.5 Eos # [place] ([facility]) ID Date Data Source [id number] 05/20/2020 02:41:00 PM EST [place] ([facility]) Name Value Range Interpretation Code Description Data Amy rce(s) Supporting Document(s) glucose, fasting 105 mg/dL 70-100 Above high normal Glucose, Fas ting [place] ([facility]) blood urea nitrogen 13 mg/dL 7-18 Blood Urea Nitro gen [place] ([facility]) creatinine for GFR 1.08 mg/dL 0.70-1.30 Creatinine for GF R [place] ([facility]) glomerular filtration rate > 60.0 >60 Glomerula r Filtration Rate [place] ([facility]) potassium serum 3.1 mEq/L 3.5-5.1 Below low normal Potassium Seru m [place] ([facility]) sodium level 139 mEq/L 136-145 Sodium Level [place] ([facility]) carbon dioxide level 24 mEq/L 21-32 Carbon Dioxide Level [facility] ([facility]) chloride level 107 mEq/L 98-107 Chloride Level [place] ([facility]) anion gap 8 mEq/L 8-16 Anion Gap [place] ([facility]) calcium level 9.1 mg/dL 8.5-10.1 Calcium Level [place] ( [facility]) ALT/SGPT 20 U/L 12-78 ALT/SGPT [place] ([facility]) AST/SGOT 11 U/L 7-37 AST/SGOT [place] ([facility]) alkaline phosphatase 52 U/L 45-117 Alkaline Phosph atase [place] ([facility]) bilirubin,total 0.9 mg/dL 0.2-1.0 Bilirubin,total ATHE ([facility]) total protein 7.7 gm/dL 6.4-8.2 Total Protein [place] ( [facility]) albumin 4.8 gm/dL 3.2-5.2 Albumin PNIKY ([facility]) albumin/globulin ratio Albumin/globu maría Ratio [facility] ([facility]) ID Date Data Source [id number] 05/20/2020 02:41:00 PM EST [place] ([facility]) Name Value Range Interpretation Code Description Data Amy rce(s) Supporting Document(s) ferritin 55 NG/mL 26-388 Ferritin [place] ([facility]) ID Date Data Source [id number] 05/20/2020 02:41:00 PM EST [place] ([facility]) Name Value Range Interpretation Code Description Data Amy rce(s) Supporting Document(s) iron (fe) 62 ug/dL 65-175 Below low normal Iron (Fe) [place] ( [facility]) total iron binding capacity 346 ug/dL 250-450 Total Ir on Binding Capacity [facility] ([facility]) percent saturation 17.9 % 19.7-50.0 Below low normal Percent Sat uration [facility] ([facility]) ID Date Data Source [id number] 05/20/2020 02:41:00 PM EST [place] ([facility]) Name Value Range Interpretation Code Description Data Amy rce(s) Supporting Document(s) slide review report Slide Review [facility] (No [facility]) source peripheral smear Source PINKY ([facility]) reason for review atypical lymphs Reason for Re view [facility] ([facility]) ID Date Data Source [id number] 05/20/2020 02:41:00 PM EST [place] ([facility]) Name Value Range Interpretation Code Description Data Amy rce(s) Supporting Document(s) white blood count 10.9 10 4.0-10.0 Above high normal White Blood Count [facility] ([facility]) hemoglobin 15.2 g/dL 13.5-17.5 Hemoglobin [facility] ([facility]) red blood count 5.66 10 4.30-6.10 Red Blood Count ATHE ([facility]) hematocrit 44.2 % 42.0-52.0 Hematocrit [place] ([facility]) mean corpuscular volume 78.1 fL 80.0-96.0 Below low normal Mean Corpuscular Volume [facility]INK[facility] ([facility]) mean corpuscular HGB conc 34.4 g/dL 32.0-36.5 Mean Corpu scular HGB Conc [facility] ([facility]) mean corpuscular hemoglobin 26.9 pg 27.0-33.0 Below low nor mal Mean Corpuscular Hemoglobin [facility] ([facility]) red cell distribution width 13.5 % 11.5-14.5 Red Cell Distribution Width [facility] ([facility]) platelet count, automated 130 10 150-450 Below low va l Platelet Count, Automated [place] ([facility]) lymph % 12.4 % 24.0-44.0 Below low normal Lymph % PINK[place] ( [facility]) neutrophils % 83.3 % 36.0-66.0 Above high normal Neutrophils % A THENA ([facility]) eos % 0.6 % 0.0-3.0 Eos % [facility] ([facility]) mono % 2.8 % 2.0-8.0 [place] % [facility] ([facility]) immature granulocyte % 0.6 % 0-3.0 Immature Gran ulocyte % PINKY ([facility]) baso % 0.3 % 0.0-1.0 Baso % [facility] ([facility]) nucleated red blood cell % 0.0 % 0-0 Nucleated Red Blood Cell % PINK[facility] ([facility]) neutrophils # 9.1 10 1.5-8.5 Above high normal Neutrophils # A THENA ([facility]) lymph # 1.4 10 1.5-5.0 Below low normal Lymph # PINK[place] ( [facility]) mono # 0.3 10 0.0-0.8 [place] # P[facility]Y ([facility]) eos # 0.1 10 0.0-0.5 Eos # [facility] ([facility]) baso # 0.0 10 0.0-0.2 Baso # [facility] ([facility]) ID Date Data Source [id number] 05/20/2020 02:41:00 PM EST [place] ([facility]) Name Value Range Interpretation Code Description Data Amy rce(s) Supporting Document(s) glucose, fasting 105 mg/dL 70-100 Above high normal Glucose, Fas ting P[place] ([facility]) blood urea nitrogen 13 mg/dL 7-18 Blood Urea Nitro gen [place] ([facility]) creatinine for GFR 1.08 mg/dL 0.70-1.30 Creatinine for GF R [place] ([facility]) glomerular filtration rate > 60.0 >60 Glomerula r Filtration Rate P[facility] ([facility]) sodium level 139 mEq/L 136-145 Sodium Level P[facility] (No [facility]) potassium serum 3.1 mEq/L 3.5-5.1 Below low normal Potassium Seru m [place] ([facility]) chloride level 107 mEq/L 98-107 Chloride Level [place] ([facility]) anion gap 8 mEq/L 8-16 Anion Gap [facility] ([facility]) carbon dioxide level 24 mEq/L 21-32 Carbon Dioxide Level [facility] ([facility]) calcium level 9.1 mg/dL 8.5-10.1 Calcium Level [place] ( [facility]) AST/SGOT 11 U/L 7-37 AST/SGOT [place] ([facility]) ALT/SGPT 20 U/L 12-78 ALT/SGPT [place] ([facility]) alkaline phosphatase 52 U/L 45-117 Alkaline Phosph atase P[facility] ([facility]) bilirubin,total 0.9 mg/dL 0.2-1.0 Bilirubin,total ATHE ([facility]) albumin 4.8 gm/dL 3.2-5.2 Albumin [facility] ([facility]) total protein 7.7 gm/dL 6.4-8.2 Total Protein [place]INK[place] ( [facility]) albumin/globulin ratio Albumin/globu maría Ratio [facility]INKY ([facility]) ID Date Data Source [id number] 05/20/2020 02:41:00 PM EST PINK[place] ([facility]) Name Value Range Interpretation Code Description Data Amy rce(s) Supporting Document(s) ferritin 55 NG/mL 26-388 Ferritin [facility] ([facility]) ID Date Data Source [id number] 05/20/2020 02:41:00 PM EST [place] ([facility]) Name Value Range Interpretation Code Description Data Amy rce(s) Supporting Document(s) total iron binding capacity 346 ug/dL 250-450 Total Ir on Binding Capacity [facility] ([facility]) iron (fe) 62 ug/dL 65-175 Below low normal Iron (Fe) PINK[facility] ( [facility]) percent saturation 17.9 % 19.7-50.0 Below low normal Percent Sat uration [facility] ([facility]) ID Date Data Source [id number] 05/20/2020 02:41:00 PM EST [place]INK[place] ([facility]) Name Value Range Interpretation Code Description Data May rce(s) Supporting Document(s) slide review report Slide Review [facility] (No [facility]) source peripheral smear Source P[facility]Y ([facility]) reason for review atypical lymphs Reason for Re view [facility] ([facility]) ID Date Data Source [id number] 05/20/2020 02:41:00 PM EST [place] ([facility]) Name Value Range Interpretation Code Description Data Amy rce(s) Supporting Document(s) white blood count 10.9 10 4.0-10.0 Above high normal White Blood Count [facility] ([facility]) red blood count 5.66 10 4.30-6.10 Red Blood Count ATHE ([facility]) hemoglobin 15.2 g/dL 13.5-17.5 Hemoglobin [place] ([facility]) hematocrit 44.2 % 42.0-52.0 Hematocrit [facility] ([facility]) mean corpuscular volume 78.1 fL 80.0-96.0 Below low normal Mean Corpuscular Volume [facility] ([facility]) mean corpuscular hemoglobin 26.9 pg 27.0-33.0 Below low nor mal Mean Corpuscular Hemoglobin [facility] ([facility]) mean corpuscular HGB conc 34.4 g/dL 32.0-36.5 Mean Corpu scular HGB Conc [facility] ([facility]) red cell distribution width 13.5 % 11.5-14.5 Red Cell Distribution Width [facility] ([facility]) platelet count, automated 130 10 150-450 Below low va l Platelet Count, Automated [place] ([facility]) neutrophils % 83.3 % 36.0-66.0 Above high normal Neutrophils % A THENA ([facility]) mono % 2.8 % 2.0-8.0 [place] % [facility] ([facility]) lymph % 12.4 % 24.0-44.0 Below low normal Lymph % [facility] ( [facility]) eos % 0.6 % 0.0-3.0 Eos % [facility] ([facility]) immature granulocyte % 0.6 % 0-3.0 Immature Gran ulocyte % [facility] ([facility]) baso % 0.3 % 0.0-1.0 Baso % [facility] ([facility]) nucleated red blood cell % 0.0 % 0-0 Nucleated Red Blood Cell % [facility] ([facility]) neutrophils # 9.1 10 1.5-8.5 Above high normal Neutrophils # A THENA ([facility]) lymph # 1.4 10 1.5-5.0 Below low normal Lymph # [place] ( [facility]) mono # 0.3 10 0.0-0.8 [place] # P[facility]Y ([facility]) eos # 0.1 10 0.0-0.5 Eos # [facility] ([facility]) baso # 0.0 10 0.0-0.2 Baso # [facility] ([facility]) ID Date Data Source [id number] 05/20/2020 02:41:00 PM EST [place] ([facility]) Name Value Range Interpretation Code Description Data Amy rce(s) Supporting Document(s) glucose, fasting 105 mg/dL 70-100 Above high normal Glucose, Fas ting [place] ([facility]) blood urea nitrogen 13 mg/dL 7-18 Blood Urea Nitro gen [place] ([facility]) creatinine for GFR 1.08 mg/dL 0.70-1.30 Creatinine for GF R [place] ([facility]) sodium level 139 mEq/L 136-145 Sodium Level [facility] (No [facility]) glomerular filtration rate > 60.0 >60 Glomerula r Filtration Rate [place] ([facility]) potassium serum 3.1 mEq/L 3.5-5.1 Below low normal Potassium Seru m [place] ([facility]) chloride level 107 mEq/L 98-107 Chloride Level [place] ([facility]) carbon dioxide level 24 mEq/L 21-32 Carbon Dioxide Level [place] ([facility]) anion gap 8 mEq/L 8-16 Anion Gap [facility] ([facility]) calcium level 9.1 mg/dL 8.5-10.1 Calcium Level [place] ( [facility]) AST/SGOT 11 U/L 7-37 AST/SGOT [facility] ([facility]) ALT/SGPT 20 U/L 12-78 ALT/SGPT [facility] ([facility]) bilirubin,total 0.9 mg/dL 0.2-1.0 Bilirubin,total ATHE NA ([facility]) alkaline phosphatase 52 U/L 45-117 Alkaline Phosph atase [place] ([facility]) total protein 7.7 gm/dL 6.4-8.2 Total Protein [place] ( [facility]) albumin 4.8 gm/dL 3.2-5.2 Albumin [facility] ([facility]) albumin/globulin ratio Albumin/globu maría Ratio [facility] ([facility]) ID Date Data Source [id number] 05/20/2020 02:41:00 PM EST [place] ([facility]) Name Value Range Interpretation Code Description Data Amy rce(s) Supporting Document(s) ferritin 55 NG/mL 26-388 Ferritin [facility] ([facility]) ID Date Data Source [id number] 05/20/2020 02:41:00 PM EST [place] ([facility]) Name Value Range Interpretation Code Description Data Amy rce(s) Supporting Document(s) total iron binding capacity 346 ug/dL 250-450 Total Ir on Binding Capacity [facility] ([facility]) iron (fe) 62 ug/dL 65-175 Below low normal Iron (Fe) [place] ( [facility]) percent saturation 17.9 % 19.7-50.0 Below low normal Percent Sat uration [facility] ([facility]) ID Date Data Source [id number] 05/20/2020 02:41:00 PM EST [place] ([facility]) Name Value Range Interpretation Code Description Data Amy rce(s) Supporting Document(s) source peripheral smear Source [facility] ([facility]) slide review report Slide Review [facility] ([facility]) reason for review atypical lymphs Reason for Re view [facility] ([facility]) ID Date Data Source [id number] 05/20/2020 02:41:00 PM EST PNIKY ([facility]) Name Value Range Interpretation Code Description Data Amy rce(s) Supporting Document(s) white blood count 10.9 10 4.0-10.0 Above high normal White Blood Count [facility] ([facility]) red blood count 5.66 10 4.30-6.10 Red Blood Count AT[place] ([facility]) hemoglobin 15.2 g/dL 13.5-17.5 Hemoglobin [place] ([facility]) hematocrit 44.2 % 42.0-52.0 Hematocrit [facility] ([facility]) mean corpuscular volume 78.1 fL 80.0-96.0 Below low normal Mean Corpuscular Volume [facility] ([facility]) mean corpuscular hemoglobin 26.9 pg 27.0-33.0 Below low nor mal Mean Corpuscular Hemoglobin [facility] ([facility]) mean corpuscular HGB conc 34.4 g/dL 32.0-36.5 Mean Corpu scular HGB Conc [facility] ([facility]) platelet count, automated 130 10 150-450 Below low va l Platelet Count, Automated [place] ([facility]) red cell distribution width 13.5 % 11.5-14.5 Red Cell Distribution Width [facility] ([facility]) neutrophils % 83.3 % 36.0-66.0 Above high normal Neutrophils % A THENA ([facility]) mono % 2.8 % 2.0-8.0 [place] % [facility] ([facility]) lymph % 12.4 % 24.0-44.0 Below low normal Lymph % [facility] ( [facility]) baso % 0.3 % 0.0-1.0 Baso % [facility] ([facility]) eos % 0.6 % 0.0-3.0 Eos % [facility] ([facility]) nucleated red blood cell % 0.0 % 0-0 Nucleated Red Blood Cell % [facility] ([facility]) immature granulocyte % 0.6 % 0-3.0 Immature Gran ulocyte % [facility] ([facility]) mono # 0.3 10 0.0-0.8 [place] # PINKY ([facility]) neutrophils # 9.1 10 1.5-8.5 Above high normal Neutrophils # A THENA ([facility]) lymph # 1.4 10 1.5-5.0 Below low normal Lymph # [facility] ( [facility]) eos # 0.1 10 0.0-0.5 Eos # [facility] ([facility]) baso # 0.0 10 0.0-0.2 Baso # [facility] ([facility]) ID Date Data Source [id number] 05/20/2020 02:41:00 PM EST [place] ([facility]) Name Value Range Interpretation Code Description Data Amy rce(s) Supporting Document(s) glucose, fasting 105 mg/dL 70-100 Above high normal Glucose, Fas ting [place] ([facility]) blood urea nitrogen 13 mg/dL 7-18 Blood Urea Nitro gen [place] ([facility]) glomerular filtration rate > 60.0 >60 Glomerula r Filtration Rate [place] ([facility]) creatinine for GFR 1.08 mg/dL 0.70-1.30 Creatinine for GF R [place] ([facility]) sodium level 139 mEq/L 136-145 Sodium Level [place] (No [facility]) potassium serum 3.1 mEq/L 3.5-5.1 Below low normal Potassium Seru m [place] ([facility]) carbon dioxide level 24 mEq/L 21-32 Carbon Dioxide Level [place] ([facility]) chloride level 107 mEq/L 98-107 Chloride Level [place] ([facility]) AST/SGOT 11 U/L 7-37 AST/SGOT [place] ([facility]) anion gap 8 mEq/L 8-16 Anion Gap [facility] ([facility]) calcium level 9.1 mg/dL 8.5-10.1 Calcium Level [place] ( [facility]) ALT/SGPT 20 U/L 12-78 ALT/SGPT [place] ([facility]) alkaline phosphatase 52 U/L 45-117 Alkaline Phosph atase [facility] ([facility]) bilirubin,total 0.9 mg/dL 0.2-1.0 Bilirubin,total ATHE NA ([facility]) total protein 7.7 gm/dL 6.4-8.2 Total Protein [place] ( [facility]) albumin 4.8 gm/dL 3.2-5.2 Albumin [place] ([facility]) albumin/globulin ratio Albumin/globu maría Ratio [facility] ([facility]) ID Date Data Source [id number] 05/20/2020 02:41:00 PM EST [place] ([facility]) Name Value Range Interpretation Code Description Data Amy rce(s) Supporting Document(s) ferritin 55 NG/mL 26-388 Ferritin [facility] ([facility]) ID Date Data Source [id number] 05/20/2020 02:41:00 PM EST [place] ([facility]) Name Value Range Interpretation Code Description Data Amy rce(s) Supporting Document(s) iron (fe) 62 ug/dL 65-175 Below low normal Iron (Fe) [facility] ( [facility] [facility] total iron binding capacity 346 ug/dL 250-450 Total Ir on Binding Capacity [facility] ([facility]) percent saturation 17.9 % 19.7-50.0 Below low normal Percent Sat uration [facility] ([facility]) ID Date Data Source [id number] 05/20/2020 02:41:00 PM EST [facility] ([facility]) Name Value Range Interpretation Code Description Data Amy rce(s) Supporting Document(s) slide review report Slide Review [facility] (No [facility]) source peripheral smear Source [facility] ([facility]) reason for review atypical lymphs Reason for Re view [facility] ([facility]) ID Date Data Source [id number] 05/20/2020 02:41:00 PM EST [facility] ([facility]) Name Value Range Interpretation Code Description Data Amy rce(s) Supporting Document(s) white blood count 10.9 10 4.0-10.0 Above high normal White Blood Count [facility] ([facility]) red blood count 5.66 10 4.30-6.10 Red Blood Count [facility] ([facility]) hematocrit 44.2 % 42.0-52.0 Hematocrit [facility] ([facility]) hemoglobin 15.2 g/dL 13.5-17.5 Hemoglobin [facility] ([facility]) mean corpuscular HGB conc 34.4 g/dL 32.0-36.5 Mean Corpu scular HGB Conc [facility] ([facility]) mean corpuscular volume 78.1 fL 80.0-96.0 Below low normal Mean Corpuscular Volume [facility] ([facility]) mean corpuscular hemoglobin 26.9 pg 27.0-33.0 Below low nor mal Mean Corpuscular Hemoglobin [facility] ([facility]) platelet count, automated 130 10 150-450 Below low va l Platelet Count, Automated [facility] ([facility]) red cell distribution width 13.5 % 11.5-14.5 Red Cell Distribution Width [facility] ([facility]) neutrophils % 83.3 % 36.0-66.0 Above high normal Neutrophils % A [facility] ([facility]) lymph % 12.4 % 24.0-44.0 Below low normal Lymph % [place] ( [facility]) mono % 2.8 % 2.0-8.0 [place] % [facility] ([facility]) eos % 0.6 % 0.0-3.0 Eos % [facility] ([facility]) nucleated red blood cell % 0.0 % 0-0 Nucleated Red Blood Cell % [facility] ([facility]) baso % 0.3 % 0.0-1.0 Baso % [facility] ([facility]) immature granulocyte % 0.6 % 0-3.0 Immature Gran ulocyte % [facility] ([facility]) neutrophils # 9.1 10 1.5-8.5 Above high normal Neutrophils # A [facility] ([facility]) lymph # 1.4 10 1.5-5.0 Below low normal Lymph # [facility] ( [facility]) mono # 0.3 10 0.0-0.8 [place] # [facility] ([facility]) eos # 0.1 10 0.0-0.5 Eos # [facility] ([facility]) baso # 0.0 10 0.0-0.2 Baso # [facility] ([facility]) ID Date Data Source [id number] 05/20/2020 02:41:00 PM EST [place] ([facility]) Name Value Range Interpretation Code Description Data Amy rce(s) Supporting Document(s) glucose, fasting 105 mg/dL 70-100 Above high normal Glucose, Fas ting [place] ([facility]) glomerular filtration rate > 60.0 >60 Glomerula r Filtration Rate [place] ([facility]) blood urea nitrogen 13 mg/dL 7-18 Blood Urea Nitro gen [place] ([facility]) creatinine for GFR 1.08 mg/dL 0.70-1.30 Creatinine for GF R [facility] ([facility]) potassium serum 3.1 mEq/L 3.5-5.1 Below low normal Potassium Seru m [facility] ([facility]) sodium level 139 mEq/L 136-145 Sodium Level [facility] (No [facility]) carbon dioxide level 24 mEq/L 21-32 Carbon Dioxide Level [place] ([facility]) chloride level 107 mEq/L 98-107 Chloride Level [place] ([facility]) anion gap 8 mEq/L 8-16 Anion Gap [place] ([facility]) calcium level 9.1 mg/dL 8.5-10.1 Calcium Level [facility] ( [facility]) AST/SGOT 11 U/L 7-37 AST/SGOT [facility] ([facility]) ALT/SGPT 20 U/L 12-78 ALT/SGPT [facility] ([facility]) bilirubin,total 0.9 mg/dL 0.2-1.0 Bilirubin,total ATHE NA ([facility]) alkaline phosphatase 52 U/L 45-117 Alkaline Phosph atase [facility] ([facility]) albumin 4.8 gm/dL 3.2-5.2 Albumin [facility] ([facility]) total protein 7.7 gm/dL 6.4-8.2 Total Protein [facility] ( [facility]) albumin/globulin ratio Albumin/globu maría Ratio [facility] ([facility]) ID Date Data Source [id number] 04/30/2020 06:45:00 AM EST [facility] ([facility]) Name Value Range Interpretation Code Description Data Amy rce(s) Supporting Document(s) ID Date Data Source [id number] 04/30/2020 06:45:00 AM EST [facility] ([facility]) Name Value Range Interpretation Code Description Data Amy rce(s) Supporting Document(s) ID Date Data Source [id number] 04/30/2020 06:45:00 AM EST [facility] ([facility]) Name Value Range Interpretation Code Description Data Amy rce(s) Supporting Document(s) ID Date Data Source [id number] 04/30/2020 06:45:00 AM EST [facility] ([facility]) Name Value Range Interpretation Code Description Data Amy rce(s) Supporting Document(s) ID Date Data Source [id number] 04/30/2020 06:45:00 AM EST [facility]) Name Value Range Interpretation Code Description Data Amy rce(s) Supporting Document(s) ID Date Data Source [id number] 04/30/2020 06:45:00 AM EST [facility] ([facility]) Name Value Range Interpretation Code Description Data Amy rce(s) Supporting Document(s) ID Date Data Source [id number] 04/30/2020 06:45:00 AM EST [facility] ([facility]) Name Value Range Interpretation Code Description Data Amy rce(s) Supporting Document(s) ID Date Data Source [id number] 04/30/2020 06:45:00 AM EST [facility] ([facility]) Name Value Range Interpretation Code Description Data Amy rce(s) Supporting Document(s) ID Date Data Source [id number] 04/30/2020 06:45:00 AM EST [facility] ([facility]) Name Value Range Interpretation Code Description Data Amy rce(s) Supporting Document(s) ID Date Data Source [id number] 04/30/2020 06:45:00 AM EST [facility] ([facility]) Name Value Range Interpretation Code Description Data Amy rce(s) Supporting Document(s) ID Date Data Source [id number] 04/30/2020 06:45:00 AM EST [facility] ([facility]) Name Value Range Interpretation Code Description Data Amy rce(s) Supporting Document(s) ID Date Data Source [id number] 04/30/2020 06:45:00 AM EST [facility]) Name Value Range Interpretation Code Description Data Amy rce(s) Supporting Document(s) ID Date Data Source [id number] 04/30/2020 06:45:00 AM EST [facility] ([facility]) Name Value Range Interpretation Code Description Data Aym rce(s) Supporting Document(s) ID Date Data Source [id number] 04/30/2020 06:45:00 AM EST [facility] Name Value Range Interpretation Code Description Data Amy rce(s) Supporting Document(s) SARS-CoV-2 (COVID 19) NEGATIVE - SARS-CoV-2 (COVID19) [facility] This lab was ordered by [facility] a nd reported by [facility]. ID Date Data Source [id number] 04/30/2020 06:45:[facility] Name Value Range Interpretation Code Description Data Amy rce(s) Supporting Document(s) ID Date Data Source [id number] 04/30/2020 06:45:00 [facility] Name Value Range Interpretation Code Description Data Amy rce(s) Supporting Document(s) ID Date Data Source [id number] 04/30/2020 06:45:00 AM EST [facility] ([facility]) Name Value Range Interpretation Code Description Data Amy rce(s) Supporting Document(s) ID Date Data Source [id number] 04/30/2020 06:45:00 AM EST [facility] ([facility]) Name Value Range Interpretation Code Description Data Amy rce(s) Supporting Document(s) ID Date Data Source [id number] 04/30/2020 05:40:00 AM [facility] Name Value Range Interpretation Code Description Data Amy rce(s) Supporting Document(s) kathrine covid antigen negative negative Kathrine Covid Anti gen [facility]) ID Date Data Source [id number] 04/30/2020 05:40:00 AM EST [facility] ([facility]) Name Value Range Interpretation Code Description Data Amy rce(s) Supporting Document(s) kathrine covid antigen negative negative Kathrine Covid Anti gen [facility] ([facility]) ID Date Data Source [id number] 04/30/2020 05:40:00 AM EST [facility] ([facility]) Name Value Range Interpretation Code Description Data Amy rce(s) Supporting Document(s) katrhine covid antigen negative negative Kathrine Covid Anti gen [facility] ([facility]) ID Date Data Source [id number] 04/30/2020 05:40:00 AM EST [facility] ([facility]) Name Value Range Interpretation Code Description Data Amy rce(s) Supporting Document(s) kathrine covid antigen negative negative Kathirne Covid Anti gen [facility] ([facility]) ID Date Data Source [id number] 04/30/2020 05:40:00 AM EST [facility] ([facility]) Name Value Range Interpretation Code Description Data Amy rce(s) Supporting Document(s) kathrine covid antigen negative negative Kathrine Covid Anti gen [facility] ([facility]) ID Date Data Source [id number] 04/30/2020 05:40:00 AM EST [facility] ([facility]) Name Value Range Interpretation Code Description Data Amy rce(s) Supporting Document(s) kathrine covid antigen negative negative Kathrine Covid Anti gen [facility] ([facility]) ID Date Data Source [id number] 04/30/2020 05:40:00 AM EST [facility] ([facility]) Name Value Range Interpretation Code Description Data Amy rce(s) Supporting Document(s) kathrine covid antigen negative negative Kathrine Covid Anti gen [facility] ([facility]) ID Date Data Source [id number] 04/30/2020 05:40:00 AM EST [facility] ([facility]) Name Value Range Interpretation Code Description Data Amy rce(s) Supporting Document(s) kathrine covid antigen negative negative Kathrine Covid Anti gen [facility] ([facility]) ID Date Data Source [id number] 04/30/2020 05:40:00 AM EST [facility] ([facility]) Name Value Range Interpretation Code Description Data Amy rce(s) Supporting Document(s) kathrine covid antigen negative negative Kathrine Covid Anti gen [facility] ([facility]) ID Date Data Source [id number] 04/30/2020 05:40:00 AM EST [facility] ([facility]) Name Value Range Interpretation Code Description Data Amy rce(s) Supporting Document(s) kathrine covid antigen negative negative Kathrine Covid Anti gen [facility] ([facility]) ID Date Data Source [id number] 04/30/2020 05:40:00 AM EST [facility] ([facility]) Name Value Range Interpretation Code Description Data Amy rce(s) Supporting Document(s) kathrine covid antigen negative negative Kathrine Covid Anti gen [facility] ([facility]) ID Date Data Source [id number] 04/30/2020 05:40:00 AM EST [facility] ([facility]) Name Value Range Interpretation Code Description Data Amy rce(s) Supporting Document(s) kathrine covid antigen negative negative Kathrine Covid Anti gen [facility] ([facility]) ID Date Data Source [id number] 04/30/2020 05:40:00 AM EST [facility] ([facility]) Name Value Range Interpretation Code Description Data Amy rce(s) Supporting Document(s) kathrine covid antigen negative negative Kathrine Covid Anti gen [facility] ([facility]) ID Date Data Source [id number] 04/30/2020 05:40:00 AM EST [facility] Name Value Range Interpretation Code Description Data Amy rce(s) Supporting Document(s) SARS COVID ANTIGEN NEGATIVE [facility] This lab was ordered by [facility] nd reported by [facility]. ID Date Data Source [id number] 04/30/2020 05:40:00 AM EST [facility] ([facility]) Name Value Range Interpretation Code Description Data Amy rce(s) Supporting Document(s) kathrine covid antigen negative negative Kathrine Covid Anti gen [facility] ([facility]) ID Date Data Source [id number] 04/30/2020 05:40:00 AM EST [facility] ([facility]) Name Value Range Interpretation Code Description Data Amy rce(s) Supporting Document(s) kathrine covid antigen negative negative Kathrine Covid Anti gen [facility] ([facility]) ID Date Data Source [id number] 04/30/2020 05:40:00 AM EST [facility]) Name Value Range Interpretation Code Description Data Amy rce(s) Supporting Document(s) kathrine covid antigen negative negative Kathrine Covid Anti gen [facility] ([facility]) ID Date Data Source [id number] 04/30/2020 05:40:00 AM EST [facility] ([facility]) Name Value Range Interpretation Code Description Data Amy rce(s) Supporting Document(s) kathrine covid antigen negative negative Kathrine Covid Anti gen [facility] ([facility]) ID Date Data Source [id number] 04/30/2020 05:28:00 AM EST [facility] ([facility]) Name Value Range Interpretation Code Description Data Amy rce(s) Supporting Document(s) blood urea nitrogen 11 mg/dL 7-18 Blood Urea Nitro gen [facility] ([facility]) creatinine for GFR 0.97 mg/dL 0.70-1.30 Creatinine for GF R [facility] ([facility]) glucose, fasting 92 mg/dL 70-100 Glucose, Fasting AT [facility] ([facility]) glomerular filtration rate > 60.0 >60 Glomerula r Filtration Rate [facility] ([facility]) sodium level 138 mEq/L 136-145 Sodium Level [facility] (No [facility]) potassium serum 3.7 mEq/L 3.5-5.1 Potassium Serum [facility] NA ([facility]) chloride level 104 mEq/L 98-107 Chloride Level [place] ([facility]) carbon dioxide level 21 mEq/L 21-32 Carbon Dioxide Level [facility] ([facility]) anion gap 13 mEq/L 8-16 Anion Gap [facility] ([facility]) calcium level 9.5 mg/dL 8.5-10.1 Calcium Level [place] ( [facility]) ID Date Data Source [id number] 04/30/2020 05:28:00 AM EST [facility]) Name Value Range Interpretation Code Description Data Amy rce(s) Supporting Document(s) white blood count 10.1 10 4.0-10.0 Above high normal White Blood Count [facility] ([facility]) red blood count 5.32 10 4.30-6.10 Red Blood Count [facility] ([facility]) hematocrit 41.4 % 42.0-52.0 Below low normal Hematocrit [facility] ( [facility]) hemoglobin 14.7 g/dL 13.5-17.5 Hemoglobin [facility] ([facility]) mean corpuscular volume 77.8 fL 80.0-96.0 Below low normal Mean Corpuscular Volume [facility] ([facility]) mean corpuscular HGB conc 35.5 g/dL 32.0-36.5 Mean Corpu scular HGB Conc [facility] ([facility]) mean corpuscular hemoglobin 27.6 pg 27.0-33.0 Mean Cor puscular Hemoglobin [facility] ([facility]) platelet count, automated 143 10 150-450 Below low va l Platelet Count, Automated [facility] ([facility]) red cell distribution width 14.1 % 11.5-14.5 Red Cell Distribution Width [facility] ([facility]) lymph % 14.1 % 24.0-44.0 Below low normal Lymph % [facility] ( [facility]) neutrophils % 79.5 % 36.0-66.0 Above high normal Neutrophils % A [place] ([facility]) mono % 3.9 % 2.0-8.0 [place] % [place] ([facility]) eos % 1.1 % 0.0-3.0 Eos % [place] ([facility]) baso % 0.5 % 0.0-1.0 Baso % [place] ([facility]) immature granulocyte % 0.9 % 0-3.0 Immature Gran ulocyte % [place] ([facility]) nucleated red blood cell % 0.0 % 0-0 Nucleated Red Blood Cell % [facility] ([facility]) neutrophils # 8.0 10 1.5-8.5 Neutrophils # [place] ( [facility]) lymph # 1.4 10 1.5-5.0 Below low normal Lymph # [facility] ( [facility]) mono # 0.4 10 0.0-0.8 [place] # [facility] ([facility]) eos # 0.1 10 0.0-0.5 Eos # [facility] ([facility]) baso # 0.1 10 0.0-0.2 Baso # [facility] ([facility]) ID Date Data Source [id number] 04/30/2020 05:28:00 AM EST [place] ([facility]) Name Value Range Interpretation Code Description Data Amy rce(s) Supporting Document(s) glucose, fasting 92 mg/dL 70-100 Glucose, Fasting AT [facility] ([facility]) creatinine for GFR 0.97 mg/dL 0.70-1.30 Creatinine for GF R [facility] ([facility]) blood urea nitrogen 11 mg/dL 7-18 Blood Urea Nitro gen [facility] ([facility]) glomerular filtration rate > 60.0 >60 Glomerula r Filtration Rate [facility] ([facility]) sodium level 138 mEq/L 136-145 Sodium Level [facility] (No [facility]) chloride level 104 mEq/L 98-107 Chloride Level [facility] ([facility]) potassium serum 3.7 mEq/L 3.5-5.1 Potassium Serum [facility] NA ([facility]) anion gap 13 mEq/L 8-16 Anion Gap [facility] ([facility]) calcium level 9.5 mg/dL 8.5-10.1 Calcium Level [facility] ( [facility]) carbon dioxide level 21 mEq/L 21-32 Carbon Dioxide Level [facility] ([facility]) ID Date Data Source [id number] 04/30/2020 05:28:00 AM EST [facility] ([facility]) Name Value Range Interpretation Code Description Data Amy rce(s) Supporting Document(s) white blood count 10.1 10 4.0-10.0 Above high normal White Blood Count [facility] ([facility]) red blood count 5.32 10 4.30-6.10 Red Blood Count [facility] ([facility]) hemoglobin 14.7 g/dL 13.5-17.5 Hemoglobin [facility] ([facility]) hematocrit 41.4 % 42.0-52.0 Below low normal Hematocrit [facility] ( [facility]) mean corpuscular volume 77.8 fL 80.0-96.0 Below low normal Mean Corpuscular Volume [facility] ([facility]) mean corpuscular hemoglobin 27.6 pg 27.0-33.0 Mean Cor puscular Hemoglobin [facility] ([facility]) red cell distribution width 14.1 % 11.5-14.5 Red Cell Distribution Width [facility] ([facility]) mean corpuscular HGB conc 35.5 g/dL 32.0-36.5 Mean Corpu scular HGB Conc [facility] ([facility]) neutrophils % 79.5 % 36.0-66.0 Above high normal Neutrophils % A [facility] ([facility]) platelet count, automated 143 10 150-450 Below low va l Platelet Count, Automated [facility] ([facility]) lymph % 14.1 % 24.0-44.0 Below low normal Lymph % [facility] ( [facility]) mono % 3.9 % 2.0-8.0 [place] % [facility] ([facility]) baso % 0.5 % 0.0-1.0 Baso % [facility] ([facility]) eos % 1.1 % 0.0-3.0 Eos % [facility] ([facility]) nucleated red blood cell % 0.0 % 0-0 Nucleated Red Blood Cell % [place] ([facility]) immature granulocyte % 0.9 % 0-3.0 Immature Gran ulocyte % [place] ([facility]) lymph # 1.4 10 1.5-5.0 Below low normal Lymph # [facility] ( [facility]) neutrophils # 8.0 10 1.5-8.5 Neutrophils # [facility] ( [facility]) eos # 0.1 10 0.0-0.5 Eos # [facility] ([facility]) mono # 0.4 10 0.0-0.8 [place] # [facility] ([facility]) baso # 0.1 10 0.0-0.2 Baso # [facility] ([facility]) ID Date Data Source [id number] 04/30/2020 05:28:00 AM EST [place] ([facility]) Name Value Range Interpretation Code Description Data Amy rce(s) Supporting Document(s) blood urea nitrogen 11 mg/dL 7-18 Blood Urea Nitro gen [place] ([facility]) glucose, fasting 92 mg/dL 70-100 Glucose, Fasting AT [facility] ([facility]) creatinine for GFR 0.97 mg/dL 0.70-1.30 Creatinine for GF R [facility] ([facility]) glomerular filtration rate > 60.0 >60 Glomerula r Filtration Rate [place] ([facility]) sodium level 138 mEq/L 136-145 Sodium Level [facility] (No [facility]) chloride level 104 mEq/L 98-107 Chloride Level [facility] ([facility]) potassium serum 3.7 mEq/L 3.5-5.1 Potassium Serum [facility] NA ([facility]) carbon dioxide level 21 mEq/L 21-32 Carbon Dioxide Level [facility] ([facility]) anion gap 13 mEq/L 8-16 Anion Gap [facility] ([facility]) calcium level 9.5 mg/dL 8.5-10.1 Calcium Level [facility] ( [facility]) ID Date Data Source [id number] 04/30/2020 05:28:00 AM EST [facility] ([facility]) Name Value Range Interpretation Code Description Data Amy rce(s) Supporting Document(s) white blood count 10.1 10 4.0-10.0 Above high normal White Blood Count [facility] ([facility]) red blood count 5.32 10 4.30-6.10 Red Blood Count [facility] ([facility]) hemoglobin 14.7 g/dL 13.5-17.5 Hemoglobin [facility] ([facility]) hematocrit 41.4 % 42.0-52.0 Below low normal Hematocrit [facility] ( [facility]) mean corpuscular volume 77.8 fL 80.0-96.0 Below low normal Mean Corpuscular Volume [facility] ([facility]) mean corpuscular hemoglobin 27.6 pg 27.0-33.0 Mean Cor puscular Hemoglobin [facility] ([facility]) mean corpuscular HGB conc 35.5 g/dL 32.0-36.5 Mean Corpu scular HGB Conc [facility] ([facility]) platelet count, automated 143 10 150-450 Below low va l [facility] red cell distribution width 14.1 % 11.5-14.5 Red Cell Distribution Width [facility] ([facility]) lymph % 14.1 % 24.0-44.0 Below low normal Lymph % [facility] ( [facility]) neutrophils % 79.5 % 36.0-66.0 Above high normal Neutrophils % A [facility] ([facility]) mono % 3.9 % 2.0-8.0 [place] % [facility] ([facility]) eos % 1.1 % 0.0-3.0 Eos % [facility] ([facility]) immature granulocyte % 0.9 % 0-3.0 Immature Gran ulocyte % [facility] ([facility]) baso % 0.5 % 0.0-1.0 Baso % [facility] ([facility]) nucleated red blood cell % 0.0 % 0-0 Nucleated Red Blood Cell % [facility] ([facility]) neutrophils # 8.0 10 1.5-8.5 Neutrophils # [place] ( [facility]) lymph # 1.4 10 1.5-5.0 Below low normal Lymph # [facility] ( [facility]) mono # 0.4 10 0.0-0.8 [place] # [facility] ([facility]) eos # 0.1 10 0.0-0.5 Eos # [facility] ([facility]) baso # 0.1 10 0.0-0.2 Baso # [facility] ([facility]) ID Date Data Source [id number] 04/30/2020 05:28:00 AM EST [place] ([facility]) Name Value Range Interpretation Code Description Data Amy rce(s) Supporting Document(s) blood urea nitrogen 11 mg/dL 7-18 Blood Urea Nitro gen [facility] ([facility]) glucose, fasting 92 mg/dL 70-100 Glucose, Fasting AT [facility] ([facility]) glomerular filtration rate > 60.0 >60 Glomerula r Filtration Rate [facility] ([facility]) creatinine for GFR 0.97 mg/dL 0.70-1.30 Creatinine for GF R [facility] ([facility]) sodium level 138 mEq/L 136-145 Sodium Level [facility] (No [facility]) chloride level 104 mEq/L 98-107 Chloride Level [facility] ([facility]) potassium serum 3.7 mEq/L 3.5-5.1 Potassium Serum [facility] NA ([facility]) carbon dioxide level 21 mEq/L 21-32 Carbon Dioxide Level [facility] [facility] gap 13 mEq/L 8-16 Anion Gap PINK[facility] ([facility]) calcium level 9.5 mg/dL 8.5-10.1 Calcium Level PINK[facility] ( [facility]) ID Date Data Source [id number] 04/30/2020 05:28:00 AM EST [facility] ([facility]) Name Value Range Interpretation Code Description Data Amy rce(s) Supporting Document(s) red blood count 5.32 10 4.30-6.10 Red Blood Count ATHE ([facility]) white blood count 10.1 10 4.0-10.0 Above high normal White Blood Count PINKY ([facility]) hematocrit 41.4 % 42.0-52.0 Below low normal Hematocrit PINK[facility] ( [facility]) hemoglobin 14.7 g/dL 13.5-17.5 Hemoglobin PINK[facility] ([facility]) mean corpuscular hemoglobin 27.6 pg 27.0-33.0 Mean Cor puscular Hemoglobin PINKY ([facility]) mean corpuscular volume 77.8 fL 80.0-96.0 Below low normal Mean Corpuscular Volume PINKY ([facility]) mean corpuscular HGB conc 35.5 g/dL 32.0-36.5 Mean Corpu scular HGB Conc P[facility] ([facility]) red cell distribution width 14.1 % 11.5-14.5 Red Cell Distribution Width PINK[facility] ([facility]) platelet count, automated 143 10 150-450 Below low va l Platelet Count, Automated [facility] ([facility]) lymph % 14.1 % 24.0-44.0 Below low normal Lymph % [facility] ( [facility]) neutrophils % 79.5 % 36.0-66.0 Above high normal Neutrophils % A THENA ([facility]) mono % 3.9 % 2.0-8.0 [place] % [facility] ([facility]) baso % 0.5 % 0.0-1.0 Baso % [facility] ([facility]) eos % 1.1 % 0.0-3.0 Eos % [facility] ([facility]) nucleated red blood cell % 0.0 % 0-0 Nucleated Red Blood Cell % PINK[facility] ([facility]) immature granulocyte % 0.9 % 0-3.0 Immature Gran ulocyte % P[facility] ([facility]) neutrophils # 8.0 10 1.5-8.5 Neutrophils # [place] ( [facility]) lymph # 1.4 10 1.5-5.0 Below low normal Lymph # [facility] ( [facility]) eos # 0.1 10 0.0-0.5 Eos # [facility] ([facility]) mono # 0.4 10 0.0-0.8 [place] # P[facility]Y ([facility]) baso # 0.1 10 0.0-0.2 Baso # [facility] ([facility]) ID Date Data Source [id number] 04/30/2020 05:28:00 AM EST [place] ([facility]) Name Value Range Interpretation Code Description Data Amy rce(s) Supporting Document(s) blood urea nitrogen 11 mg/dL 7-18 Blood Urea Nitro gen [place] ([facility]) glucose, fasting 92 mg/dL 70-100 Glucose, Fasting AT [facility]) glomerular filtration rate > 60.0 >60 Glomerula r Filtration Rate PINK[facility] ([facility]) creatinine for GFR 0.97 mg/dL 0.70-1.30 Creatinine for GF R [place] ([facility]) potassium serum 3.7 mEq/L 3.5-5.1 Potassium Serum ATHE NA ([facility]) sodium level 138 mEq/L 136-145 Sodium Level [facility] ([facility]) chloride level 104 mEq/L 98-107 Chloride Level PINK[facility] ([facility]) calcium level 9.5 mg/dL 8.5-10.1 Calcium Level [place] ( [facility]) carbon dioxide level 21 mEq/L 21-32 Carbon Dioxide Level [facility] ([facility]) anion gap 13 mEq/L 8-16 Anion Gap [facility] ([facility]) ID Date Data Source [id number] 04/30/2020 05:28:00 AM EST [facility] ([facility]) Name Value Range Interpretation Code Description Data Amy rce(s) Supporting Document(s) white blood count 10.1 10 4.0-10.0 Above high normal White Blood Count P[facility] ([facility]) red blood count 5.32 10 4.30-6.10 Red Blood Count ATHE NA ([facility]) hemoglobin 14.7 g/dL 13.5-17.5 Hemoglobin P[facility] ([facility]) hematocrit 41.4 % 42.0-52.0 Below low normal Hematocrit [facility] ( [facility]) mean corpuscular volume 77.8 fL 80.0-96.0 Below low normal Mean Corpuscular Volume P[facility] ([facility]) mean corpuscular HGB conc 35.5 g/dL 32.0-36.5 Mean Corpu scular HGB Conc P[facility] ([facility]) mean corpuscular hemoglobin 27.6 pg 27.0-33.0 Mean Cor puscular Hemoglobin PINK[facility] ([facility]) red cell distribution width 14.1 % 11.5-14.5 Red Cell Distribution Width [facility] ([facility]) platelet count, automated 143 10 150-450 Below low va l Platelet Count, Automated [place] ([facility]) neutrophils % 79.5 % 36.0-66.0 Above high normal Neutrophils % A THENA ([facility]) lymph % 14.1 % 24.0-44.0 Below low normal Lymph % [place] ( [facility]) mono % 3.9 % 2.0-8.0 [place] % [facility] ([facility]) eos % 1.1 % 0.0-3.0 Eos % [facility] ([facility]) baso % 0.5 % 0.0-1.0 Baso % [facility] ([facility]) nucleated red blood cell % 0.0 % 0-0 Nucleated Red Blood Cell % [facility] ([facility]) immature granulocyte % 0.9 % 0-3.0 Immature Gran ulocyte % [facility] ([facility]) lymph # 1.4 10 1.5-5.0 Below low normal Lymph # [place] ( [facility]) neutrophils # 8.0 10 1.5-8.5 Neutrophils # [place] ( [facility]) eos # 0.1 10 0.0-0.5 Eos # [facility] ([facility]) baso # 0.1 10 0.0-0.2 Baso # [facility] ([facility]) mono # 0.4 10 0.0-0.8 [place] # [place] ([facility]) ID Date Data Source [id number] 04/30/2020 05:28:00 AM EST [place] ([facility]) Name Value Range Interpretation Code Description Data Amy rce(s) Supporting Document(s) glucose, fasting 92 mg/dL 70-100 Glucose, Fasting AT [facility]) glomerular filtration rate > 60.0 >60 Glomerula r Filtration Rate [place] ([facility]) creatinine for GFR 0.97 mg/dL 0.70-1.30 Creatinine for GF R [place] ([facility]) blood urea nitrogen 11 mg/dL 7-18 Blood Urea Nitro gen [place] ([facility]) potassium serum 3.7 mEq/L 3.5-5.1 Potassium Serum ATHE NA ([facility]) sodium level 138 mEq/L 136-145 Sodium Level [facility] ([facility]) chloride level 104 mEq/L 98-107 Chloride Level [facility] ([facility]) carbon dioxide level 21 mEq/L 21-32 Carbon Dioxide Level [place] ([facility]) anion gap 13 mEq/L 8-16 Anion Gap [facility] ([facility]) calcium level 9.5 mg/dL 8.5-10.1 Calcium Level [place] ( [facility]) ID Date Data Source [id number] 04/30/2020 05:28:00 AM EST [facility] ([facility]) Name Value Range Interpretation Code Description Data Amy rce(s) Supporting Document(s) white blood count 10.1 10 4.0-10.0 Above high normal White Blood Count [facility] ([facility]) red blood count 5.32 10 4.30-6.10 Red Blood Count ATHE NA ([facility]) hemoglobin 14.7 g/dL 13.5-17.5 Hemoglobin [facility] ([facility]) hematocrit 41.4 % 42.0-52.0 Below low normal Hematocrit [facility] ( [facility]) mean corpuscular volume 77.8 fL 80.0-96.0 Below low normal Mean Corpuscular Volume [facility] ([facility]) mean corpuscular HGB conc 35.5 g/dL 32.0-36.5 Mean Corpu scular HGB Conc [facility] ([facility]) mean corpuscular hemoglobin 27.6 pg 27.0-33.0 Mean Cor puscular Hemoglobin PINK[facility] ([facility]) neutrophils % 79.5 % 36.0-66.0 Above high normal Neutrophils % A THENA ([facility]) platelet count, automated 143 10 150-450 Below low va l Platelet Count, Automated [place] ([facility]) red cell distribution width 14.1 % 11.5-14.5 Red Cell Distribution Width [facility] ([facility]) lymph % 14.1 % 24.0-44.0 Below low normal Lymph % [place] ( [facility]) eos % 1.1 % 0.0-3.0 Eos % [facility] ([facility]) mono % 3.9 % 2.0-8.0 [place] % [facility] ([facility]) immature granulocyte % 0.9 % 0-3.0 Immature Gran ulocyte % [facility] ([facility]) baso % 0.5 % 0.0-1.0 Baso % [facility] ([facility]) nucleated red blood cell % 0.0 % 0-0 Nucleated Red Blood Cell % [facility] ([facility]) neutrophils # 8.0 10 1.5-8.5 Neutrophils # [place] ( [facility]) lymph # 1.4 10 1.5-5.0 Below low normal Lymph # [place] ( [facility]) eos # 0.1 10 0.0-0.5 Eos # [facility] ([facility]) mono # 0.4 10 0.0-0.8 [place] # [facility] ([facility]) baso # 0.1 10 0.0-0.2 Baso # [facility] ([facility]) ID Date Data Source [id number] 04/30/2020 05:28:00 AM EST [facility] ([facility]) Name Value Range Interpretation Code Description Data Amy rce(s) Supporting Document(s) glucose, fasting 92 mg/dL 70-100 Glucose, Fasting AT [facility]) blood urea nitrogen 11 mg/dL 7-18 Blood Urea Nitro gen [place] ([facility]) creatinine for GFR 0.97 mg/dL 0.70-1.30 Creatinine for GF R [place] ([facility]) glomerular filtration rate > 60.0 >60 Glomerula r Filtration Rate [place] ([facility]) sodium level 138 mEq/L 136-145 Sodium Level [facility] (No [facility]) potassium serum 3.7 mEq/L 3.5-5.1 Potassium Serum ATHE NA ([facility]) chloride level 104 mEq/L 98-107 Chloride Level [place] ([facility]) anion gap 13 mEq/L 8-16 Anion Gap [facility] ([facility]) carbon dioxide level 21 mEq/L 21-32 Carbon Dioxide Level [facility] ([facility]) calcium level 9.5 mg/dL 8.5-10.1 Calcium Level [place] ( [facility]) ID Date Data Source [id number] 04/30/2020 05:28:00 AM EST [facility]INK[facility] ([facility]) Name Value Range Interpretation Code Description Data Amy rce(s) Supporting Document(s) red blood count 5.32 10 4.30-6.10 Red Blood Count ATHE NA ([facility]) white blood count 10.1 10 4.0-10.0 Above high normal White Blood Count P[facility] ([facility]) hemoglobin 14.7 g/dL 13.5-17.5 Hemoglobin [facility] ([facility]) hematocrit 41.4 % 42.0-52.0 Below low normal Hematocrit P[facility] ( [facility]) mean corpuscular hemoglobin 27.6 pg 27.0-33.0 Mean Cor puscular Hemoglobin P[facility] ([facility]) mean corpuscular volume 77.8 fL 80.0-96.0 Below low normal Mean Corpuscular Volume PINKY ([facility]) mean corpuscular HGB conc 35.5 g/dL 32.0-36.5 Mean Corpu scular HGB Conc [facility] ([facility]) red cell distribution width 14.1 % 11.5-14.5 Red Cell Distribution Width [facility] ([facility]) neutrophils % 79.5 % 36.0-66.0 Above high normal Neutrophils % A THENA ([facility]) lymph % 14.1 % 24.0-44.0 Below low normal Lymph % [place] ( [facility]) platelet count, automated 143 10 150-450 Below low va l Platelet Count, Automated [facility] ([facility]) mono % 3.9 % 2.0-8.0 [place] % [facility] ([facility]) eos % 1.1 % 0.0-3.0 Eos % [facility] ([facility]) immature granulocyte % 0.9 % 0-3.0 Immature Gran ulocyte % [facility] ([facility]) baso % 0.5 % 0.0-1.0 Baso % [facility] ([facility]) nucleated red blood cell % 0.0 % 0-0 Nucleated Red Blood Cell % [facility] ([facility]) neutrophils # 8.0 10 1.5-8.5 Neutrophils # [place] ( [facility]) lymph # 1.4 10 1.5-5.0 Below low normal Lymph # [facility] ( [facility]) eos # 0.1 10 0.0-0.5 Eos # [facility] ([facility]) mono # 0.4 10 0.0-0.8 [place] # [facility] ([facility]) baso # 0.1 10 0.0-0.2 Baso # [facility] ([facility]) ID Date Data Source [id number] 04/30/2020 05:28:00 AM EST PINK[facility] ([facility]) Name Value Range Interpretation Code Description Data Amy rce(s) Supporting Document(s) glucose, fasting 92 mg/dL 70-100 Glucose, Fasting AT [facility] ([facility]) creatinine for GFR 0.97 mg/dL 0.70-1.30 Creatinine for GF R [facility]INK[facility] ([facility]) blood urea nitrogen 11 mg/dL 7-18 Blood Urea Nitro gen [facility] ([facility]) sodium level 138 mEq/L 136-145 Sodium Level [facility] ([facility]) glomerular filtration rate > 60.0 >60 Glomerula r Filtration Rate P[facility] ([facility]) potassium serum 3.7 mEq/L 3.5-5.1 Potassium Serum ATHE NA ([facility]) carbon dioxide level 21 mEq/L 21-32 Carbon Dioxide Level PINK[facility] ([facility]) chloride level 104 mEq/L 98-107 Chloride Level [place] ([facility]) calcium level 9.5 mg/dL 8.5-10.1 Calcium Level PINK[facility] ( [facility]) anion gap 13 mEq/L 8-16 Anion Gap [facility] ([facility]) ID Date Data Source [id number] 04/30/2020 05:28:00 AM EST PINK[facility] ([facility]) Name Value Range Interpretation Code Description Data Amy rce(s) Supporting Document(s) white blood count 10.1 10 4.0-10.0 Above high normal White Blood Count PINK[facility] ([facility]) hemoglobin 14.7 g/dL 13.5-17.5 Hemoglobin P[facility] ([facility]) hematocrit 41.4 % 42.0-52.0 Below low normal Hematocrit PINK[facility] ( [facility]) red blood count 5.32 10 4.30-6.10 Red Blood Count ATHE NA ([facility]) mean corpuscular hemoglobin 27.6 pg 27.0-33.0 Mean Cor puscular Hemoglobin PINK[facility] ([facility]) mean corpuscular volume 77.8 fL 80.0-96.0 Below low normal Mean Corpuscular Volume P[facility] ([facility]) red cell distribution width 14.1 % 11.5-14.5 Red Cell Distribution Width [facility] ([facility]) mean corpuscular HGB conc 35.5 g/dL 32.0-36.5 Mean Corpu scular HGB Conc [facility] ([facility]) neutrophils % 79.5 % 36.0-66.0 Above high normal Neutrophils % A THENA ([facility]) lymph % 14.1 % 24.0-44.0 Below low normal Lymph % [place] ( [facility]) platelet count, automated 143 10 150-450 Below low va l Platelet Count, Automated [facility] ([facility]) mono % 3.9 % 2.0-8.0 [place] % [facility] ([facility]) eos % 1.1 % 0.0-3.0 Eos % [facility] ([facility]) baso % 0.5 % 0.0-1.0 Baso % [facility] ([facility]) immature granulocyte % 0.9 % 0-3.0 Immature Gran ulocyte % [facility] ([facility]) lymph # 1.4 10 1.5-5.0 Below low normal Lymph # [place] ( [facility]) nucleated red blood cell % 0.0 % 0-0 Nucleated Red Blood Cell % [facility] ([facility]) neutrophils # 8.0 10 1.5-8.5 Neutrophils # [place] ( [facility]) mono # 0.4 10 0.0-0.8 [place] # [facility] ([facility]) eos # 0.1 10 0.0-0.5 Eos # [facility] ([facility]) baso # 0.1 10 0.0-0.2 Baso # [facility] ([facility]) ID Date Data Source [id number] 04/30/2020 05:28:00 AM EST [facility] ([facility]) Name Value Range Interpretation Code Description Data Amy rce(s) Supporting Document(s) glucose, fasting 92 mg/dL 70-100 Glucose, Fasting AT [facility] ([facility]) creatinine for GFR 0.97 mg/dL 0.70-1.30 Creatinine for GF R [place] ([facility]) blood urea nitrogen 11 mg/dL 7-18 Blood Urea Nitro gen [facility] ([facility]) sodium level 138 mEq/L 136-145 Sodium Level P[facility] (No [facility]) glomerular filtration rate > 60.0 >60 Glomerula r Filtration Rate [facility] ([facility]) carbon dioxide level 21 mEq/L 21-32 Carbon Dioxide Level [facility] ([facility]) potassium serum 3.7 mEq/L 3.5-5.1 Potassium Serum ATHE ([facility]) chloride level 104 mEq/L 98-107 Chloride Level [facility] ([facility]) anion gap 13 mEq/L 8-16 Anion Gap [facility] ([facility]) calcium level 9.5 mg/dL 8.5-10.1 Calcium Level [facility]INK[facility] ( [facility]) ID Date Data Source [id number] 04/30/2020 05:28:00 AM EST [place] ([facility]) Name Value Range Interpretation Code Description Data Amy rce(s) Supporting Document(s) red blood count 5.32 10 4.30-6.10 Red Blood Count ATHE ([facility]) white blood count 10.1 10 4.0-10.0 Above high normal White Blood Count P[facility] ([facility]) hematocrit 41.4 % 42.0-52.0 Below low normal Hematocrit PINK[facility] ( [facility]) hemoglobin 14.7 g/dL 13.5-17.5 Hemoglobin [facility] ([facility]) mean corpuscular volume 77.8 fL 80.0-96.0 Below low normal Mean Corpuscular Volume PINK[facility] ([facility]) mean corpuscular HGB conc 35.5 g/dL 32.0-36.5 Mean Corpu scular HGB Conc [facility] ([facility]) mean corpuscular hemoglobin 27.6 pg 27.0-33.0 Mean Cor puscular Hemoglobin PINK[facility] ([facility]) platelet count, automated 143 10 150-450 Below low va l Platelet Count, Automated [facility] ([facility]) red cell distribution width 14.1 % 11.5-14.5 Red Cell Distribution Width [facility] ([facility]) neutrophils % 79.5 % 36.0-66.0 Above high normal Neutrophils % A THENA ([facility]) lymph % 14.1 % 24.0-44.0 Below low normal Lymph % [place] ( [facility]) mono % 3.9 % 2.0-8.0 [place] % [place] ([facility]) eos % 1.1 % 0.0-3.0 Eos % [facility] ([facility]) baso % 0.5 % 0.0-1.0 Baso % [facility] ([facility]) nucleated red blood cell % 0.0 % 0-0 Nucleated Red Blood Cell % [place] ([facility]) immature granulocyte % 0.9 % 0-3.0 Immature Gran ulocyte % [place] ([facility]) neutrophils # 8.0 10 1.5-8.5 Neutrophils # [place] ( [facility]) lymph # 1.4 10 1.5-5.0 Below low normal Lymph # [facility] ( [facility]) mono # 0.4 10 0.0-0.8 [place] # [facility] ([facility]) baso # 0.1 10 0.0-0.2 Baso # [facility] ([facility]) eos # 0.1 10 0.0-0.5 Eos # [facility] ([facility]) ID Date Data Source [id number] 04/30/2020 05:28:00 AM EST [place] ([facility]) Name Value Range Interpretation Code Description Data Amy rce(s) Supporting Document(s) glucose, fasting 92 mg/dL 70-100 Glucose, Fasting AT [facility] ([facility]) creatinine for GFR 0.97 mg/dL 0.70-1.30 Creatinine for GF R [facility] ([facility]) blood urea nitrogen 11 mg/dL 7-18 Blood Urea Nitro gen [facility] ([facility]) glomerular filtration rate > 60.0 >60 Glomerula r Filtration Rate [facility] ([facility]) potassium serum 3.7 mEq/L 3.5-5.1 Potassium Serum ATHE NA ([facility]) sodium level 138 mEq/L 136-145 Sodium Level [facility] ([facility]) chloride level 104 mEq/L 98-107 Chloride Level [facility] ([facility]) anion gap 13 mEq/L 8-16 Anion Gap [facility] ([facility]) carbon dioxide level 21 mEq/L 21-32 Carbon Dioxide Level [facility] ([facility]) calcium level 9.5 mg/dL 8.5-10.1 Calcium Level [place] ( [facility]) ID Date Data Source [id number] 04/30/2020 05:28:00 AM EST [place] ([facility]) Name Value Range Interpretation Code Description Data Amy rce(s) Supporting Document(s) white blood count 10.1 10 4.0-10.0 Above high normal White Blood Count [facility] ([facility]) hematocrit 41.4 % 42.0-52.0 Below low normal Hematocrit [facility] ( [facility]) hemoglobin 14.7 g/dL 13.5-17.5 Hemoglobin [facility] ([facility]) red blood count 5.32 10 4.30-6.10 Red Blood Count ATHE ([facility]) mean corpuscular hemoglobin 27.6 pg 27.0-33.0 Mean Cor puscular Hemoglobin [facility] ([facility]) mean corpuscular volume 77.8 fL 80.0-96.0 Below low normal Mean Corpuscular Volume [facility] ([facility]) red cell distribution width 14.1 % 11.5-14.5 Red Cell Distribution Width [facility] ([facility]) mean corpuscular HGB conc 35.5 g/dL 32.0-36.5 Mean Corpu scular HGB Conc [facility] ([facility]) neutrophils % 79.5 % 36.0-66.0 Above high normal Neutrophils % A THE[place] ([facility]) platelet count, automated 143 10 150-450 Below low va l Platelet Count, Automated [place] ([facility]) lymph % 14.1 % 24.0-44.0 Below low normal Lymph % [facility] ( [facility]) eos % 1.1 % 0.0-3.0 Eos % [facility] ([facility]) mono % 3.9 % 2.0-8.0 [place] % [place] ([facility]) baso % 0.5 % 0.0-1.0 Baso % [place] ([facility]) nucleated red blood cell % 0.0 % 0-0 Nucleated Red Blood Cell % [facility] ([facility]) immature granulocyte % 0.9 % 0-3.0 Immature Gran ulocyte % [facility] ([facility]) neutrophils # 8.0 10 1.5-8.5 Neutrophils # [place] ( [facility]) lymph # 1.4 10 1.5-5.0 Below low normal Lymph # [place] ( [facility]) baso # 0.1 10 0.0-0.2 Baso # [facility] ([facility]) mono # 0.4 10 0.0-0.8 [place] # [place] ([facility]) eos # 0.1 10 0.0-0.5 Eos # [facility] ([facility]) ID Date Data Source [id number] 04/30/2020 05:28:00 AM EST [place] ([facility]) Name Value Range Interpretation Code Description Data Amy rce(s) Supporting Document(s) glucose, fasting 92 mg/dL 70-100 Glucose, Fasting AT [facility] ([facility]) creatinine for GFR 0.97 mg/dL 0.70-1.30 Creatinine for GF R [place] ([facility]) glomerular filtration rate > 60.0 >60 Glomerula r Filtration Rate [facility] ([facility]) blood urea nitrogen 11 mg/dL 7-18 Blood Urea Nitro gen [facility] ([facility]) sodium level 138 mEq/L 136-145 Sodium Level [facility] (No [facility]) potassium serum 3.7 mEq/L 3.5-5.1 Potassium Serum ATHE NA ([facility]) chloride level 104 mEq/L 98-107 Chloride Level [facility] ([facility]) anion gap 13 mEq/L 8-16 Anion Gap [facility] ([facility]) carbon dioxide level 21 mEq/L 21-32 Carbon Dioxide Level [facility] ([facility]) calcium level 9.5 mg/dL 8.5-10.1 Calcium Level [facility] ( [facility]) ID Date Data Source [id number] 04/30/2020 05:28:00 AM EST [place] ([facility]) Name Value Range Interpretation Code Description Data Amy rce(s) Supporting Document(s) white blood count 10.1 10 4.0-10.0 Above high normal White Blood Count [facility] ([facility]) red blood count 5.32 10 4.30-6.10 Red Blood Count AT[facility] ([facility]) hemoglobin 14.7 g/dL 13.5-17.5 Hemoglobin [facility] ([facility]) mean corpuscular volume 77.8 fL 80.0-96.0 Below low normal Mean Corpuscular Volume [facility] ([facility]) hematocrit 41.4 % 42.0-52.0 Below low normal Hematocrit [facility] ( [facility]) red cell distribution width 14.1 % 11.5-14.5 Red Cell Distribution Width [facility] ([facility]) mean corpuscular hemoglobin 27.6 pg 27.0-33.0 Mean Cor puscular Hemoglobin [facility] ([facility]) mean corpuscular HGB conc 35.5 g/dL 32.0-36.5 Mean Corpu scular HGB Conc [facility] ([facility]) platelet count, automated 143 10 150-450 Below low va l Platelet Count, Automated [facility] ([facility]) neutrophils % 79.5 % 36.0-66.0 Above high normal Neutrophils % A THENA ([facility]) mono % 3.9 % 2.0-8.0 [place] % [facility] ([facility]) lymph % 14.1 % 24.0-44.0 Below low normal Lymph % [facility] ( [facility]) baso % 0.5 % 0.0-1.0 Baso % [place] ([facility]) immature granulocyte % 0.9 % 0-3.0 Immature Gran ulocyte % [place] ([facility]) eos % 1.1 % 0.0-3.0 Eos % [place] ([facility]) nucleated red blood cell % 0.0 % 0-0 Nucleated Red Blood Cell % [place] ([facility]) neutrophils # 8.0 10 1.5-8.5 Neutrophils # [place] ( [facility]) lymph # 1.4 10 1.5-5.0 Below low normal Lymph # [place] ( [facility]) eos # 0.1 10 0.0-0.5 Eos # [place] ([facility]) mono # 0.4 10 0.0-0.8 [place] # [place] ([facility]) baso # 0.1 10 0.0-0.2 Baso # [place] ([facility]) ID Date Data Source [id number] 04/30/2020 05:28:00 AM EST [place] ([facility]) Name Value Range Interpretation Code Description Data Amy rce(s) Supporting Document(s) glucose, fasting 92 mg/dL 70-100 Glucose, Fasting AT [facility] ([facility]) blood urea nitrogen 11 mg/dL 7-18 Blood Urea Nitro gen [place] ([facility]) creatinine for GFR 0.97 mg/dL 0.70-1.30 Creatinine for GF R [place] ([facility]) glomerular filtration rate > 60.0 >60 Glomer[place] r Filtration Rate [place] ([facility]) sodium level 138 mEq/L 136-145 Sodium Level [place] (No [facility]) potassium serum 3.7 mEq/L 3.5-5.1 Potassium Serum ATHE NA ([facility]) chloride level 104 mEq/L 98-107 Chloride Level [place] ([facility]) carbon dioxide level 21 mEq/L 21-32 Carbon Dioxide Level [place] ([facility]) calcium level 9.5 mg/dL 8.5-10.1 Calcium Level [place] ( [facility]) anion gap 13 mEq/L 8-16 Anion Gap [place] ([facility]) ID Date Data Source [id number] 04/30/2020 05:28:00 AM EST [facility]) Name Value Range Interpretation Code Description Data Amy rce(s) Supporting Document(s) red blood count 5.32 10 4.30-6.10 Red Blood Count [place] ([facility]) white blood count 10.1 10 4.0-10.0 Above high normal White Blood Count [place] ([facility]) hemoglobin 14.7 g/dL 13.5-17.5 Hemoglobin [place] ([facility]) hematocrit 41.4 % 42.0-52.0 Below low normal Hematocrit [place] ( [facility]) mean corpuscular volume 77.8 fL 80.0-96.0 Below low normal Mean Corpuscular Volume [place] ([facility]) mean corpuscular HGB conc 35.5 g/dL 32.0-36.5 Mean Corpu scular HGB Conc [place] ([facility]) mean corpuscular hemoglobin 27.6 pg 27.0-33.0 Mean Cor puscular Hemoglobin [place] ([facility]) platelet count, automated 143 10 150-450 Below low va l [facility], [facility] red cell distribution width 14.1 % 11.5-14.5 Red Cell Distribution [facility] lymph % 14.1 % 24.0-44.0 Below low normal Lymph % [place] ( [facility]) neutrophils % 79.5 % 36.0-66.0 Above high normal Neutrophils % A [place] ([facility]) eos % 1.1 % 0.0-3.0 Eos % [place] ([facility]) baso % 0.5 % 0.0-1.0 Baso % [place] ([facility]) mono % 3.9 % 2.0-8.0 [place] % [place] ([facility]) nucleated red blood cell % 0.0 % 0-0 Nucleated Red Blood Cell % [place] ([facility]) immature granulocyte % 0.9 % 0-3.0 Immature Gran ulocyte % [place] ([facility]) neutrophils # 8.0 10 1.5-8.5 Neutrophils # [place] ( [facility]) mono # 0.4 10 0.0-0.8 [place] # [place] ([facility]) lymph # 1.4 10 1.5-5.0 Below low normal Lymph # [place] ( [facility]) eos # 0.1 10 0.0-0.5 Eos # [place] ([facility]) baso # 0.1 10 0.0-0.2 Baso # [place] ([facility]) ID Date Data Source [id number] 04/30/2020 05:28:00 AM EST [place] ([facility]) Name Value Range Interpretation Code Description Data Amy rce(s) Supporting Document(s) glucose, fasting 92 mg/dL 70-100 Glucose, Fasting AT [place] ([facility]) blood urea nitrogen 11 mg/dL 7-18 Blood Urea Nitro gen [place] ([facility]) sodium level 138 mEq/L 136-145 Sodium Level [place] (No [facility]) creatinine for GFR 0.97 mg/dL 0.70-1.30 Creatinine for GF R [place] ([facility]) glomerular filtration rate > 60.0 >60 Glomerula r Filtration Rate [place] ([facility]) potassium serum 3.7 mEq/L 3.5-5.1 Potassium Serum ATHE NA ([facility]) carbon dioxide level 21 mEq/L 21-32 Carbon Dioxide Level [place] ([facility]) chloride level 104 mEq/L 98-107 Chloride Level [place] ([facility]) calcium level 9.5 mg/dL 8.5-10.1 Calcium Level [place] ( [facility]) anion gap 13 mEq/L 8-16 Anion Gap [place] ([facility]) ID Date Data Source [id number] 04/30/2020 05:28:00 AM EST [place] ([facility]) Name Value Range Interpretation Code Description Data Amy rce(s) Supporting Document(s) white blood count 10.1 10 4.0-10.0 Above high normal White Blood Count [place] ([facility]) red blood count 5.32 10 4.30-6.10 Red Blood Count [place] ([facility]) mean corpuscular volume 77.8 fL 80.0-96.0 Below low normal Mean Corpuscular Volume [place] ([facility]) hematocrit 41.4 % 42.0-52.0 Below low normal Hematocrit [place] ( [facility]) hemoglobin 14.7 g/dL 13.5-17.5 Hemoglobin [place] ([facility]) mean corpuscular hemoglobin 27.6 pg 27.0-33.0 Mean Cor puscular Hemoglobin [place] ([facility]) mean corpuscular HGB conc 35.5 g/dL 32.0-36.5 Mean Corpu scular HGB Conc [place] ([facility]) neutrophils % 79.5 % 36.0-66.0 Above high normal Neutrophils % A THE[place] ([facility]) platelet count, automated 143 10 150-450 Below low va l Platelet Count, Automated [place] ([facility]) red cell distribution width 14.1 % 11.5-14.5 Red Cell Distribution Width PNIKY ([facility]) eos % 1.1 % 0.0-3.0 Eos % [place] ([facility]) mono % 3.9 % 2.0-8.0 [place] % [place] ([facility]) lymph % 14.1 % 24.0-44.0 Below low normal Lymph % [place] ( [facility]) immature granulocyte % 0.9 % 0-3.0 Immature Gran ulocyte % [place] ([facility]) baso % 0.5 % 0.0-1.0 Baso % [place] ([facility]) nucleated red blood cell % 0.0 % 0-0 Nucleated Red Blood Cell % [place] ([facility]) lymph # 1.4 10 1.5-5.0 Below low normal Lymph # [place] ( [facility]) neutrophils # 8.0 10 1.5-8.5 Neutrophils # [place] ( [facility]) eos # 0.1 10 0.0-0.5 Eos # [place] ([facility]) mono # 0.4 10 0.0-0.8 [place] # [place] ([facility]) baso # 0.1 10 0.0-0.2 Baso # [place] ([facility]) ID Date Data Source [id number] 04/30/2020 05:28:00 AM EST [place] ([facility]) Name Value Range Interpretation Code Description Data Amy rce(s) Supporting Document(s) glucose, fasting 92 mg/dL 70-100 Glucose, Fasting AT [facility]) blood urea nitrogen 11 mg/dL 7-18 Blood Urea Nitro gen [place] ([facility]) creatinine for GFR 0.97 mg/dL 0.70-1.30 Creatinine for GF R [place] ([facility]) sodium level 138 mEq/L 136-145 Sodium Level [place] (No [facility]) glomerular filtration rate > 60.0 >60 Glomerula r Filtration Rate [place] ([facility]) carbon dioxide level 21 mEq/L 21-32 Carbon Dioxide Level [place] ([facility]) potassium serum 3.7 mEq/L 3.5-5.1 Potassium Serum ATHE NA ([facility]) chloride level 104 mEq/L 98-107 Chloride Level [place] ([facility]) anion gap 13 mEq/L 8-16 Anion Gap [place] ([facility]) calcium level 9.5 mg/dL 8.5-10.1 Calcium Level [place] ( [facility]) ID Date Data Source [id number] 04/30/2020 05:28:00 AM EST [place] ([facility]) Name Value Range Interpretation Code Description Data Amy rce(s) Supporting Document(s) white blood count 10.1 10 4.0-10.0 Above high normal White Blood Count [place] ([facility]) red blood count 5.32 10 4.30-6.10 Red Blood Count [place] ([facility]) hemoglobin 14.7 g/dL 13.5-17.5 Hemoglobin [place] ([facility]) mean corpuscular volume 77.8 fL 80.0-96.0 Below low normal Mean Corpuscular Volume [place] ([facility]) hematocrit 41.4 % 42.0-52.0 Below low normal Hematocrit [place] ( [facility]) mean corpuscular hemoglobin 27.6 pg 27.0-33.0 Mean Cor puscular Hemoglobin [place] ([facility]) mean corpuscular HGB conc 35.5 g/dL 32.0-36.5 Mean Corpu scular HGB Conc [place] ([facility]) red cell distribution width 14.1 % 11.5-14.5 Red Cell Distribution Width [place] ([facility]) platelet count, automated 143 10 150-450 Below low va l Platelet Count, Automated [place] ([facility]) neutrophils % 79.5 % 36.0-66.0 Above high normal Neutrophils % A [place] ([facility]) mono % 3.9 % 2.0-8.0 [place] % [place] ([facility]) eos % 1.1 % 0.0-3.0 Eos % [place] ([facility]) lymph % 14.1 % 24.0-44.0 Below low normal Lymph % [place] ( [facility]) baso % 0.5 % 0.0-1.0 Baso % [place] ([facility]) immature granulocyte % 0.9 % 0-3.0 Immature Gran ulocyte % [place] ([facility]) nucleated red blood cell % 0.0 % 0-0 Nucleated Red Blood Cell % [place] ([facility]) mono # 0.4 10 0.0-0.8 [place] # [place] ([facility]) lymph # 1.4 10 1.5-5.0 Below low normal Lymph # [place] ( [facility]) neutrophils # 8.0 10 1.5-8.5 Neutrophils # [place] ( [facility]) eos # 0.1 10 0.0-0.5 Eos # [place] ([facility]) baso # 0.1 10 0.0-0.2 Baso # [place] ([facility]) ID Date Data Source [id number] 04/30/2020 05:28:00 AM EST [place] ([facility]) Name Value Range Interpretation Code Description Data Amy rce(s) Supporting Document(s) glucose, fasting 92 mg/dL 70-100 Glucose, Fasting AT [facility]) blood urea nitrogen 11 mg/dL 7-18 Blood Urea Nitro gen [place] ([facility]) creatinine for GFR 0.97 mg/dL 0.70-1.30 Creatinine for GF R [place] ([facility]) glomerular filtration rate > 60.0 >60 Glomerula r Filtration Rate [place] ([facility]) potassium serum 3.7 mEq/L 3.5-5.1 Potassium Serum ATHE NA ([facility]) sodium level 138 mEq/L 136-145 Sodium Level [place] (No [facility]) chloride level 104 mEq/L 98-107 Chloride Level [place] ([facility]) carbon dioxide level 21 mEq/L 21-32 Carbon Dioxide Level [place] ([facility]) anion gap 13 mEq/L 8-16 Anion Gap [place] ([facility]) calcium level 9.5 mg/dL 8.5-10.1 Calcium Level [place] ( [facility]) ID Date Data Source [id number] 04/30/2020 05:28:00 AM EST [place] ([facility]) Name Value Range Interpretation Code Description Data Amy rce(s) Supporting Document(s) red blood count 5.32 10 4.30-6.10 Red Blood Count AT[place] NA ([facility]) white blood count 10.1 10 4.0-10.0 Above high normal White Blood Count [place] ([facility]) hemoglobin 14.7 g/dL 13.5-17.5 Hemoglobin [place] ([facility]) hematocrit 41.4 % 42.0-52.0 Below low normal Hematocrit [place] ( [facility]) mean corpuscular volume 77.8 fL 80.0-96.0 Below low normal Mean Corpuscular Volume [place] ([facility]) mean corpuscular hemoglobin 27.6 pg 27.0-33.0 Mean Cor puscular Hemoglobin [place] ([facility]) mean corpuscular HGB conc 35.5 g/dL 32.0-36.5 Mean Corpu scular HGB Conc [place] ([facility]) red cell distribution width 14.1 % 11.5-14.5 Red Cell Distribution Width [place] ([facility]) platelet count, automated 143 10 150-450 Below low va l Platelet Count, Automated [place] ([facility]) lymph % 14.1 % 24.0-44.0 Below low normal Lymph % [place] ( [facility]) neutrophils % 79.5 % 36.0-66.0 Above high normal Neutrophils % A [place] ([facility]) eos % 1.1 % 0.0-3.0 Eos % [place] ([facility]) mono % 3.9 % 2.0-8.0 [place] % [place] ([facility]) immature granulocyte % 0.9 % 0-3.0 Immature Gran ulocyte % [place] ([facility]) baso % 0.5 % 0.0-1.0 Baso % [place] ([facility]) nucleated red blood cell % 0.0 % 0-0 Nucleated Red Blood Cell % [place] ([facility]) neutrophils # 8.0 10 1.5-8.5 Neutrophils # [place] ( [facility]) lymph # 1.4 10 1.5-5.0 Below low normal Lymph # [place] ( [facility]) mono # 0.4 10 0.0-0.8 [place] # [place] ([facility]) eos # 0.1 10 0.0-0.5 Eos # [place] ([facility]) baso # 0.1 10 0.0-0.2 Baso # [place] ([facility]) ID Date Data Source [id number] 04/30/2020 05:28:00 AM EST [place] ([facility]) Name Value Range Interpretation Code Description Data Amy rce(s) Supporting Document(s) glucose, fasting 92 mg/dL 70-100 Glucose, Fasting AT [facility]) blood urea nitrogen 11 mg/dL 7-18 Blood Urea Nitro gen [place] ([facility]) creatinine for GFR 0.97 mg/dL 0.70-1.30 Creatinine for GF R [place] ([facility]) sodium level 138 mEq/L 136-145 Sodium Level [place] ([facility]) glomerular filtration rate > 60.0 >60 Glomerula r Filtration Rate [place] ([facility]) chloride level 104 mEq/L 98-107 Chloride Level [place] ([facility]) potassium serum 3.7 mEq/L 3.5-5.1 Potassium Serum A[place] NA ([facility]) carbon dioxide level 21 mEq/L 21-32 Carbon Dioxide Level [place] ([facility]) anion gap 13 mEq/L 8-16 Anion Gap [place] ([facility]) calcium level 9.5 mg/dL 8.5-10.1 Calcium Level [place] ( [facility]) ID Date Data Source [id number] 04/30/2020 05:28:00 AM EST [place] ([facility]) Name Value Range Interpretation Code Description Data Amy rce(s) Supporting Document(s) red blood count 5.32 10 4.30-6.10 Red Blood Count ATHE NA ([facility]) white blood count 10.1 10 4.0-10.0 Above high normal White Blood Count [place] ([facility]) hematocrit 41.4 % 42.0-52.0 Below low normal Hematocrit [place] ( [facility]) hemoglobin 14.7 g/dL 13.5-17.5 Hemoglobin [place] ([facility]) mean corpuscular HGB conc 35.5 g/dL 32.0-36.5 Mean Corpu scular HGB Conc [place] ([facility]) mean corpuscular hemoglobin 27.6 pg 27.0-33.0 Mean Cor puscular Hemoglobin [place] ([facility]) mean corpuscular volume 77.8 fL 80.0-96.0 Below low normal Mean Corpuscular Volume [place] ([facility]) red cell distribution width 14.1 % 11.5-14.5 Red Cell Distribution Width [place] ([facility]) platelet count, automated 143 10 150-450 Below low va l Platelet Count, Automated [place] ([facility]) neutrophils % 79.5 % 36.0-66.0 Above high normal Neutrophils % A [place] ([facility]) lymph % 14.1 % 24.0-44.0 Below low normal Lymph % [place] ( [facility]) mono % 3.9 % 2.0-8.0 [place] % [facility] ([facility]) baso % 0.5 % 0.0-1.0 Baso % [place] ([facility]) eos % 1.1 % 0.0-3.0 Eos % [place] ([facility]) immature granulocyte % 0.9 % 0-3.0 Immature Gran ulocyte % [place] ([facility]) neutrophils # 8.0 10 1.5-8.5 Neutrophils # [place] ( [facility]) nucleated red blood cell % 0.0 % 0-0 Nucleated Red Blood Cell % [place] ([facility]) lymph # 1.4 10 1.5-5.0 Below low normal Lymph # [place] ( [facility]) mono # 0.4 10 0.0-0.8 [place] # [place] ([facility]) eos # 0.1 10 0.0-0.5 Eos # [place] ([facility]) baso # 0.1 10 0.0-0.2 Baso # [place] ([facility]) ID Date Data Source [id number] 04/30/2020 05:28:00 AM EST [place] ([facility]) Name Value Range Interpretation Code Description Data Amy rce(s) Supporting Document(s) blood urea nitrogen 11 mg/dL 7-18 Blood Urea Nitro gen [place] ([facility]) creatinine for GFR 0.97 mg/dL 0.70-1.30 Creatinine for GF R [place] ([facility]) glucose, fasting 92 mg/dL 70-100 Glucose, Fasting AT [facility] ([facility]) glomerular filtration rate > 60.0 >60 Glomerula r Filtration Rate [place] ([facility]) sodium level 138 mEq/L 136-145 Sodium Level [place] (No [facility]) potassium serum 3.7 mEq/L 3.5-5.1 Potassium Serum AT[place] NA ([facility]) chloride level 104 mEq/L 98-107 Chloride Level [place] ([facility]) carbon dioxide level 21 mEq/L 21-32 Carbon Dioxide Level [place] ([facility]) anion gap 13 mEq/L 8-16 Anion Gap [place] ([facility]) calcium level 9.5 mg/dL 8.5-10.1 Calcium Level [place] ( [facility]) ID Date Data Source [id number] 04/30/2020 05:28:00 AM EST [place] ([facility]) Name Value Range Interpretation Code Description Data Amy rce(s) Supporting Document(s) red blood count 5.32 10 4.30-6.10 Red Blood Count AT[place] NA ([facility]) white blood count 10.1 10 4.0-10.0 Above high normal White Blood Count [place] ([facility]) hematocrit 41.4 % 42.0-52.0 Below low normal Hematocrit [place] ( [facility]) hemoglobin 14.7 g/dL 13.5-17.5 Hemoglobin [place] ([facility]) mean corpuscular hemoglobin 27.6 pg 27.0-33.0 Mean Cor puscular Hemoglobin [place] ([facility]) mean corpuscular HGB conc 35.5 g/dL 32.0-36.5 Mean Corpu scular HGB Conc [place] ([facility]) mean corpuscular volume 77.8 fL 80.0-96.0 Below low normal Mean Corpuscular Volume [place] ([facility]) platelet count, automated 143 10 150-450 Below low va l Platelet Count, Automated [place] ([facility]) red cell distribution width 14.1 % 11.5-14.5 Red Cell Distribution Width [place] ([facility]) neutrophils % 79.5 % 36.0-66.0 Above high normal Neutrophils % A THE[place] ([facility]) lymph % 14.1 % 24.0-44.0 Below low normal Lymph % [place] ( [facility]) mono % 3.9 % 2.0-8.0 [place] % [facility] ([facility]) eos % 1.1 % 0.0-3.0 Eos % [place] ([facility]) baso % 0.5 % 0.0-1.0 Baso % [place] ([facility]) nucleated red blood cell % 0.0 % 0-0 Nucleated Red Blood Cell % [place] ([facility]) immature granulocyte % 0.9 % 0-3.0 Immature Gran ulocyte % [place] ([facility]) neutrophils # 8.0 10 1.5-8.5 Neutrophils # [place] ( [facility]) mono # 0.4 10 0.0-0.8 [place] # [place] ([facility]) lymph # 1.4 10 1.5-5.0 Below low normal Lymph # [place] ( [facility]) eos # 0.1 10 0.0-0.5 Eos # [place] ([facility]) baso # 0.1 10 0.0-0.2 Baso # [facility] ([facility]) ID Date Data Source [id number] 04/10/2020 10:01:00 AM EST [place] ([facility]) Name Value Range Interpretation Code Description Data Amy rce(s) Supporting Document(s) bilirubin neg Bilirubin [place] ([facility]) glucose neg Glucose [place] ([facility]) blood neg Blood [place] ([facility]) leukocytes neg Leukocytes [facility] ([facility]) ketone neg Ketone [place] ([facility]) nitrite neg Nitrite [place] ([facility]) pH Ph [place] ([facility]) protein neg Protein [place] ([facility]) specific gravity Specific [place] AT [place] ([facility]) urobilinogen 0.2 mg/dL Urobilinogen [facility] (No [facility]) ID Date Data Source [id number] 04/10/2020 10:01:00 AM EST [place] ([facility]) Name Value Range Interpretation Code Description Data Amy rce(s) Supporting Document(s) bilirubin neg Bilirubin [facility] ([facility]) glucose neg Glucose [facility] ([facility]) blood neg Blood [place] ([facility]) ketone neg Ketone [facility] ([facility]) leukocytes neg Leukocytes [facility] ([facility]) pH Ph [facility] ([facility]) nitrite neg Nitrite [facility] ([facility]) protein neg Protein [facility] ([facility]) specific gravity Specific [place] AT [facility] ([facility]) urobilinogen 0.2 mg/dL Urobilinogen [facility] (No [facility]) ID Date Data Source [id number] 04/10/2020 10:01:00 AM EST [place] ([facility]) Name Value Range Interpretation Code Description Data Amy rce(s) Supporting Document(s) bilirubin neg Bilirubin [facility] ([facility]) blood neg Blood [place] ([facility]) leukocytes neg Leukocytes [facility] ([facility]) glucose neg Glucose [facility] ([facility]) ketone neg Ketone [facility] ([facility] nitrite neg Nitrite [facility] ([facility]) protein neg Protein [facility] ([facility]) pH Ph [facility] ([facility]) specific gravity Specific [place] AT [facility] ([facility]) urobilinogen 0.2 mg/dL Urobilinogen [facility] (No [facility]) ID Date Data Source [id number] 04/10/2020 10:01:00 AM EST [place] ([facility]) Name Value Range Interpretation Code Description Data Amy rce(s) Supporting Document(s) bilirubin neg Bilirubin [facility] ([facility]) glucose neg Glucose [facility] ([facility]) ketone neg Ketone [facility] ([facility]) blood neg Blood [place] ([facility] leukocytes neg Leukocytes [place] ([facility]) nitrite neg Nitrite [place] ([facility]) pH Ph [facility] ([facility]) protein neg Protein [facility] ([facility]) specific gravity Specific [place] AT [facility] ([facility]) urobilinogen 0.2 mg/dL [facility] Date Data Source [id number] 04/10/2020 10:01:00 AM EST [place] ([facility]) Name Value Range Interpretation Code Description Data Amy rce(s) Supporting Document(s) bilirubin neg Bilirubin [facility] ([facility]) blood neg Blood [place] ([facility]) ketone neg Ketone [facility] ([facility]) glucose neg Glucose [place] ([facility]) leukocytes neg Leukocytes [facility] ([facility]) nitrite neg Nitrite [facility] ([facility]) pH Ph [facility] ([facility]) specific gravity Specific [place] AT [facility] ([facility]) protein neg Protein [facility] ([facility]) urobilinogen 0.2 mg/dL [facility] Date Data Source [id number] 04/10/2020 10:01:00 AM EST PINKY ([facility]) Name Value Range Interpretation Code Description Data Amy rce(s) Supporting Document(s) bilirubin neg Bilirubin PINKY ([facility]) blood neg Blood PINKY ([facility]) glucose neg Glucose PINKY ([facility]) ketone neg Ketone PINKY ([facility]) nitrite neg Nitrite PINKY ([facility]) leukocytes neg Leukocytes PINKY ([facility]) pH Ph PINKY ([facility]) protein neg Protein PINKY ([facility]) specific gravity Specific [place] AT EMY ([facility]) urobilinogen 0.2 mg/dL Urobilinogen PINKY (No [facility]) ID Date Data Source [id number] 04/10/2020 10:01:00 AM EST PINKY ([facility]) Name Value Range Interpretation Code Description Data Amy rce(s) Supporting Document(s) blood neg Blood PINKY ([facility]) bilirubin neg Bilirubin PINKY ([facility]) glucose neg Glucose PNIKY ([facility]) ketone neg Ketone PINKY ([facility]) leukocytes neg Leukocytes PINKY ([facility]) pH Ph PINKY ([facility]) protein neg Protein PINKY ([facility]) nitrite neg Nitrite PINKY ([facility]) specific gravity Specific [place] AT EMY ([facility]) urobilinogen 0.2 mg/dL Urobilinogen PINKY (No [facility]) ID Date Data Source [id number] 04/10/2020 10:01:00 AM EST PINKY ([facility]) Name Value Range Interpretation Code Description Data Amy rce(s) Supporting Document(s) bilirubin neg Bilirubin PINKY ([facility]) blood neg Blood PINKY ([facility]) glucose neg Glucose PINKY ([facility]) ketone neg Ketone PINKY ([facility]) nitrite neg Nitrite PINKY ([facility]) leukocytes neg Leukocytes PINKY ([facility]) pH Ph PINKY ([facility]) protein neg Protein PINKY ([facility]) specific gravity Specific [place] AT EMY ([facility]) urobilinogen 0.2 mg/dL Urobilinogen PINKY (No [facility]) ID Date Data Source [id number] 04/10/2020 10:01:00 AM EST PINKY ([facility]) Name Value Range Interpretation Code Description Data Amy rce(s) Supporting Document(s) bilirubin neg Bilirubin PINKY ([facility]) glucose neg Glucose PINKY ([facility]) ketone neg Ketone PINYK ([facility]) blood neg Blood PINKY ([facility]) pH Ph PINKY ([facility]) leukocytes neg Leukocytes PINKY ([facility]) nitrite neg Nitrite PINKY ([facility]) urobilinogen 0.2 mg/dL Urobilinogen PINKY (No [facility]) protein neg Protein PINKY ([facility]) specific gravity Specific [place] AT EMY ([facility]) ID Date Data Source [id number] 04/10/2020 10:01:00 AM EST PINKY ([facility]) Name Value Range Interpretation Code Description Data Amy rce(s) Supporting Document(s) blood neg Blood PINKY ([facility]) bilirubin neg Bilirubin PINKY ([facility]) ketone neg Ketone PINKY ([facility]) glucose neg Glucose [facility]INKY ([facility]) pH Ph PINKY ([facility]) leukocytes neg Leukocytes PINKY ([facility]) nitrite neg Nitrite PINKY ([facility]) protein neg Protein PINKY ([facility]) urobilinogen 0.2 mg/dL Urobilinogen PINKY ([facility]) specific gravity Specific [place] AT EMY ([facility]) ID Date Data Source [id number] 04/10/2020 10:01:00 AM EST PINKY ([facility]) Name Value Range Interpretation Code Description Data Amy rce(s) Supporting Document(s) bilirubin neg Bilirubin PINKY ([facility]) ketone neg Ketone PINKY ([facility]) blood neg Blood PINKY ([facility]) glucose neg Glucose PIKNY ([facility]) nitrite neg Nitrite PINKY ([facility]) pH Ph PINKY ([facility]) leukocytes neg Leukocytes PINKY ([facility]) urobilinogen 0.2 mg/dL Urobilinogen PINKY (No r[facility]) specific gravity Specific [place] AT EMY ([facility]) protein neg Protein PINKY ([facility]) ID Date Data Source [id number] 04/10/2020 10:01:00 AM EST PINKY ([facility]) Name Value Range Interpretation Code Description Data Amy rce(s) Supporting Document(s) blood neg Blood PINKY ([facility]) bilirubin neg Bilirubin PINKY ([facility]) glucose neg Glucose PINKY ([facility]) ketone neg Ketone PINKY ([facility]) leukocytes neg Leukocytes PINKY ([facility]) nitrite neg Nitrite PINKY ([facility]) pH Ph PINKY ([facility]) protein neg Protein PINKY ([facility]) urobilinogen 0.2 mg/dL Urobilinogen PINKY (No [facility]) specific gravity Specific [place] AT EMY ([facility]) ID Date Data Source [id number] 04/10/2020 10:01:00 AM EST PINKY ([facility]) Name Value Range Interpretation Code Description Data Amy rce(s) Supporting Document(s) blood neg Blood PINKY ([facility]) bilirubin neg Bilirubin PINKY ([facility]) ketone neg Ketone PINKY ([facility]) glucose neg Glucose PINKY ([facility]) leukocytes neg Leukocytes PINKY ([facility]) nitrite neg Nitrite PINKY ([facility]) pH Ph PINKY ([facility]) protein neg Protein PINKY ([facility]) urobilinogen 0.2 mg/dL [facility] specific gravity Specific [place] AT EMY ([facility]) ID Date Data Source [id number] 04/10/2020 10:01:00 AM EST PINKY ([facility]) Name Value Range Interpretation Code Description Data Amy rce(s) Supporting Document(s) bilirubin neg Bilirubin PINKY ([facility]) glucose neg Glucose PINKY ([facility]) blood neg Blood PINKY ([facility]) leukocytes neg Leukocytes PINKY ([facility]) nitrite neg Nitrite PINKY ([facility]) ketone neg Ketone PINKY ([facility]) protein neg Protein PINKY ([facility]) specific gravity Specific [place] AT EMY ([facility]) pH Ph PINKY ([facility]) urobilinogen 0.2 mg/dL Urobilinogen PINKY (No [facility]) ID Date Data Source [id number] 04/10/2020 10:01:00 AM EST PINKY ([facility]) Name Value Range Interpretation Code Description Data Amy rce(s) Supporting Document(s) bilirubin neg Bilirubin PINKY ([facility]) blood neg Blood PINKY ([facility]) leukocytes neg Leukocytes PINKY ([facility]) glucose neg Glucose PINKY ([facility]) ketone neg Ketone PINKY ([facility]) protein neg Protein PINKY ([facility]) nitrite neg Nitrite PINKY ([facility]) pH Ph PINKY ([facility]) urobilinogen 0.2 mg/dL Urobilinogen PINKY (No [facility]) specific gravity Specific [place] AT EMY ([facility]) ID Date Data Source [id number] 04/10/2020 10:01:00 AM EST PINKY ([facility]) Name Value Range Interpretation Code Description Data Amy rce(s) Supporting Document(s) bilirubin neg Bilirubin PINKY ([facility]) glucose neg Glucose PINKY ([facility]) blood neg Blood PINKY ([facility]) nitrite neg Nitrite PINKY ([facility]) ketone neg Ketone PINKY ([facility]) leukocytes neg Leukocytes PINKY ([facility]) protein neg Protein PINKY ([facility]) specific gravity Specific [place] AT EMY ([facility]) pH Ph PINKY ([facility]) urobilinogen 0.2 mg/dL Urobilinogen PINKY (No [facility]) ID Date Data Source [id number] 04/10/2020 10:01:00 AM EST PINKY ([facility]) Name Value Range Interpretation Code Description Data Amy rce(s) Supporting Document(s) bilirubin neg Bilirubin PINKY ([facility]) blood neg Blood PINKY ([facility]) glucose neg Glucose PINKY ([facility]) leukocytes neg Leukocytes PINKY ([facility]) ketone neg Ketone PINKY ([facility]) nitrite neg Nitrite PINKY ([facility]) pH Ph PINKY ([facility]) protein neg Protein PINKY ([facility]) specific gravity Specific [place] AT [facility] ([facility]) urobilinogen 0.2 mg/dL Urobilinogen PINKY ([facility]) ID Date Data Source [id number] 03/27/2020 11:50:00 AM EST PINKY ([facility]) Name Value Range Interpretation Code Description Data Amy rce(s) Supporting Document(s) blood urea nitrogen 11 mg/dL 7-18 Blood Urea Nitro gen PINKY ([facility]) glucose, fasting 89 mg/dL 70-100 Glucose, Fasting AT [facility] ([facility]) creatinine for GFR 0.90 mg/dL 0.70-1.30 Creatinine for GF R [place] ([facility]) glomerular filtration rate > 60.0 >60 [place] r Filtration Rate PINKY ([facility]) sodium level 140 mEq/L 136-145 Sodium Level PINKY ([facility]) potassium serum 3.7 mEq/L 3.5-5.1 Potassium Serum ATHE NA ([facility]) chloride level 107 mEq/L 98-107 Chloride Level [place] ([facility]) anion gap 7 mEq/L 8-16 Below low normal Anion Gap PINKY ( [facility]) carbon dioxide level 26 mEq/L 21-32 Carbon Dioxide Level PINKY ([facility]) calcium level 8.8 mg/dL 8.5-10.1 Calcium Level PINKY ( [facility]) ALT/SGPT 22 U/L 12-78 ALT/SGPT PINKY ([facility]) AST/SGOT 15 U/L 7-37 AST/SGOT PINKY ([facility]) total protein 7.1 gm/dL 6.4-8.2 Total Protein PINKY ( [facility]) alkaline phosphatase 48 U/L 45-117 Alkaline Phosph atase PINKY ([facility]) bilirubin,total 0.7 mg/dL 0.2-1.0 Bilirubin,total ATHE NA ([facility]) albumin/globulin ratio Albumin/globu maría Ratio PINKY ([facility]) albumin 4.5 gm/dL 3.2-5.2 Albumin PINKY ([facility]) ID Date Data Source [id number] 03/27/2020 11:50:00 AM EST PINKY ([facility]) Name Value Range Interpretation Code Description Data Amy rce(s) Supporting Document(s) white blood count 6.2 10 4.0-10.0 White Blood Count PINKY ([facility]) red blood count 5.29 10 4.30-6.10 Red Blood Count ATHE ([facility]) hematocrit 41.9 % 42.0-52.0 Below low normal Hematocrit PINKY ( [facility]) hemoglobin 14.5 g/dL 13.5-17.5 Hemoglobin PINKY ([facility]) mean corpuscular volume 79.2 fL 80.0-96.0 Below low normal Mean Corpuscular Volume PINKY ([facility]) mean corpuscular HGB conc 34.6 g/dL 32.0-36.5 Mean Corpu scular HGB Conc PINKY ([facility]) mean corpuscular hemoglobin 27.4 pg 27.0-33.0 Mean Cor puscular Hemoglobin PINKY ([facility]) red cell distribution width 13.6 % 11.5-14.5 Red Cell Distribution Width PINKY ([facility]) platelet count, automated 135 10 150-450 Below low va l Platelet Count, Automated PINKY ([facility]) lymph % 19.8 % 24.0-44.0 Below low normal Lymph % PINKY ( [facility]) mono % 4.4 % 0.0-5.0 [place] % PINKY ([facility]) neutrophils % 70.7 % 36.0-66.0 Above high normal Neutrophils % A THENA ([facility]) baso % 0.6 % 0.0-1.0 Baso % PINKY ([facility]) eos % 3.4 % 0.0-3.0 Above high normal Eos % PINKY ([facility]) immature granulocyte % 1.1 % 0-3.0 Immature Gran ulocyte % PINKY ([facility]) nucleated red blood cell % 0.0 % 0-0 Nucleated Red Blood Cell % PINKY ([facility]) neutrophils # 4.4 10 1.5-8.5 Neutrophils # PINKY ( [facility]) lymph # 1.2 10 1.5-5.0 Below low normal Lymph # PINKY ( [facility]) mono # 0.3 10 0.0-0.8 [place] # PINKY ([facility]) eos # 0.2 10 0.0-0.5 Eos # PINKY ([facility]) baso # 0.0 10 0.0-0.2 Baso # PINKY ([facility]) ID Date Data Source [id number] 03/27/2020 11:50:00 AM EST [place] ([facility]) Name Value Range Interpretation Code Description Data Amy rce(s) Supporting Document(s) blood urea nitrogen 11 mg/dL 7-18 Blood Urea Nitro gen [place] ([facility]) glucose, fasting 89 mg/dL 70-100 Glucose, Fasting AT [facility]) creatinine for GFR 0.90 mg/dL 0.70-1.30 Creatinine for GF R [place] ([facility]) glomerular filtration rate > 60.0 >60 [place] r Filtration Rate PINKY ([facility]) sodium level 140 mEq/L 136-145 Sodium Level PINKY ([facility]) potassium serum 3.7 mEq/L 3.5-5.1 Potassium Serum ATHE NA ([facility]) anion gap 7 mEq/L 8-16 Below low normal Anion Gap PINKY ( [facility]) chloride level 107 mEq/L 98-107 Chloride Level [place] ([facility]) carbon dioxide level 26 mEq/L 21-32 Carbon Dioxide Level [place] ([facility]) AST/SGOT 15 U/L 7-37 AST/SGOT [place] ([facility]) calcium level 8.8 mg/dL 8.5-10.1 Calcium Level PINKY ( [facility]) alkaline phosphatase 48 U/L 45-117 Alkaline Phosph atase PINKY ([facility]) ALT/SGPT 22 U/L 12-78 ALT/SGPT PINKY ([facility]) bilirubin,total 0.7 mg/dL 0.2-1.0 Bilirubin,total ATHE NA ([facility]) albumin 4.5 gm/dL 3.2-5.2 Albumin PINKY ([facility]) total protein 7.1 gm/dL 6.4-8.2 Total Protein PINKY ( [facility]) albumin/globulin ratio Albumin/globu maría Ratio PINKY ([facility]) ID Date Data Source [id number] 03/27/2020 11:50:00 AM EST PINKY ([facility]) Name Value Range Interpretation Code Description Data Amy rce(s) Supporting Document(s) white blood count 6.2 10 4.0-10.0 White Blood Count PINKY ([facility]) red blood count 5.29 10 4.30-6.10 Red Blood Count ATHE ([facility]) hemoglobin 14.5 g/dL 13.5-17.5 Hemoglobin PINKY ([facility]) hematocrit 41.9 % 42.0-52.0 Below low normal Hematocrit PINKY ( [facility]) mean corpuscular volume 79.2 fL 80.0-96.0 Below low normal Mean Corpuscular Volume PINKY ([facility]) mean corpuscular hemoglobin 27.4 pg 27.0-33.0 Mean Cor puscular Hemoglobin PINKY ([facility]) red cell distribution width 13.6 % 11.5-14.5 Red Cell Distribution Width PINKY ([facility]) mean corpuscular HGB conc 34.6 g/dL 32.0-36.5 Mean Corpu scular HGB Conc PINKY ([facility]) platelet count, automated 135 10 150-450 Below low va l Platelet Count, Automated PINKY ([facility]) neutrophils % 70.7 % 36.0-66.0 Above high normal Neutrophils % A [place] ([facility]) lymph % 19.8 % 24.0-44.0 Below low normal Lymph % PINKY ( [facility]) mono % 4.4 % 0.0-5.0 [place] % PINKY ([facility]) baso % 0.6 % 0.0-1.0 Baso % PINKY ([facility]) eos % 3.4 % 0.0-3.0 Above high normal Eos % PINKY ([facility]) immature granulocyte % 1.1 % 0-3.0 Immature Gran ulocyte % PINKY ([facility]) nucleated red blood cell % 0.0 % 0-0 Nucleated Red Blood Cell % PINKY ([facility]) neutrophils # 4.4 10 1.5-8.5 Neutrophils # PINKY ( [facility]) mono # 0.3 10 0.0-0.8 [place] # PINKY ([facility]) lymph # 1.2 10 1.5-5.0 Below low normal Lymph # PINKY ( [facility]) baso # 0.0 10 0.0-0.2 Baso # PINKY ([facility]) eos # 0.2 10 0.0-0.5 Eos # PINKY ([facility]) ID Date Data Source [id number] 03/27/2020 11:50:00 AM EST [place] ([facility]) Name Value Range Interpretation Code Description Data Amy rce(s) Supporting Document(s) blood urea nitrogen 11 mg/dL 7-18 Blood Urea Nitro gen PINKY ([facility]) glucose, fasting 89 mg/dL 70-100 Glucose, Fasting AT EM[place] ([facility]) creatinine for GFR 0.90 mg/dL 0.70-1.30 Creatinine for GF R PINKY ([facility]) glomerular filtration rate > 60.0 >60 [place] r Filtration Rate PINKY ([facility]) sodium level 140 mEq/L 136-145 Sodium Level PINKY (No [facility]) potassium serum 3.7 mEq/L 3.5-5.1 Potassium Serum ATHE NA ([facility]) carbon dioxide level 26 mEq/L 21-32 Carbon Dioxide Level PINKY ([facility]) chloride level 107 mEq/L 98-107 Chloride Level PINKY ([facility]) AST/SGOT 15 U/L 7-37 AST/SGOT PINKY ([facility]) anion gap 7 mEq/L 8-16 Below low normal Anion Gap PINKY ( [facility]) calcium level 8.8 mg/dL 8.5-10.1 Calcium Level PINKY ( [facility]) ALT/SGPT 22 U/L 12-78 ALT/SGPT PINKY ([facility]) alkaline phosphatase 48 U/L 45-117 Alkaline Phosph atase PINKY ([facility]) bilirubin,total 0.7 mg/dL 0.2-1.0 Bilirubin,total ATHE NA ([facility]) albumin 4.5 gm/dL 3.2-5.2 Albumin PINKY ([facility]) total protein 7.1 gm/dL 6.4-8.2 Total Protein PINKY ( [facility]) albumin/globulin ratio Albumin/globu maría Ratio PINKY ([facility]) ID Date Data Source [id number] 03/27/2020 11:50:00 AM EST PINKY ([facility]) Name Value Range Interpretation Code Description Data Amy rce(s) Supporting Document(s) white blood count 6.2 10 4.0-10.0 White Blood Count PINKY ([facility]) red blood count 5.29 10 4.30-6.10 Red Blood Count ATHE NA ([facility]) hemoglobin 14.5 g/dL 13.5-17.5 Hemoglobin PINKY ([facility]) hematocrit 41.9 % 42.0-52.0 Below low normal Hematocrit PINKY ( [facility]) mean corpuscular HGB conc 34.6 g/dL 32.0-36.5 Mean Corpu scular HGB Conc PINKY ([facility]) mean corpuscular hemoglobin 27.4 pg 27.0-33.0 Mean Cor puscular Hemoglobin PINKY ([facility]) mean corpuscular volume 79.2 fL 80.0-96.0 Below low normal Mean Corpuscular Volume PINKY ([facility]) red cell distribution width 13.6 % 11.5-14.5 Red Cell Distribution Width PINKY ([facility]) platelet count, automated 135 10 150-450 Below low va l Platelet Count, Automated PINKY ([facility]) lymph % 19.8 % 24.0-44.0 Below low normal Lymph % PINKY ( [facility]) neutrophils % 70.7 % 36.0-66.0 Above high normal Neutrophils % A THENA ([facility]) mono % 4.4 % 0.0-5.0 [place] % [place] ([facility]) eos % 3.4 % 0.0-3.0 Above high normal Eos % PINKY ([facility]) immature granulocyte % 1.1 % 0-3.0 Immature Gran ulocyte % PINKY ([facility]) baso % 0.6 % 0.0-1.0 Baso % PINKY ([facility]) nucleated red blood cell % 0.0 % 0-0 Nucleated Red Blood Cell % PINKY ([facility]) lymph # 1.2 10 1.5-5.0 Below low normal Lymph # [place] ( [facility]) neutrophils # 4.4 10 1.5-8.5 Neutrophils # PINKY ( [facility]) baso # 0.0 10 0.0-0.2 Baso # PINKY ([facility]) eos # 0.2 10 0.0-0.5 Eos # PINKY ([facility]) mono # 0.3 10 0.0-0.8 [place] # PINKY ([facility]) ID Date Data Source [id number] 03/27/2020 11:50:00 AM EST [place] ([facility]) Name Value Range Interpretation Code Description Data Amy rce(s) Supporting Document(s) glucose, fasting 89 mg/dL 70-100 Glucose, Fasting AT [facility] ([facility]) blood urea nitrogen 11 mg/dL 7-18 Blood Urea Nitro gen PINKY ([facility]) creatinine for GFR 0.90 mg/dL 0.70-1.30 Creatinine for GF R PINK[place] ([facility]) glomerular filtration rate > 60.0 >60 [place] r Filtration Rate PINKY ([facility]) sodium level 140 mEq/L 136-145 Sodium Level PINKY (No [facility]) potassium serum 3.7 mEq/L 3.5-5.1 Potassium Serum ATHE NA ([facility]) chloride level 107 mEq/L 98-107 Chloride Level PINKY ([facility]) carbon dioxide level 26 mEq/L 21-32 Carbon Dioxide Level PINK[place] ([facility]) AST/SGOT 15 U/L 7-37 AST/SGOT PINKY ([facility]) calcium level 8.8 mg/dL 8.5-10.1 Calcium Level PINKY ( [facility]) anion gap 7 mEq/L 8-16 Below low normal Anion Gap PINKY ( [facility]) bilirubin,total 0.7 mg/dL 0.2-1.0 Bilirubin,total ATHE ([facility]) alkaline phosphatase 48 U/L 45-117 Alkaline Phosph atase PINKY ([facility]) ALT/SGPT 22 U/L 12-78 ALT/SGPT PINKY ([facility]) total protein 7.1 gm/dL 6.4-8.2 Total Protein PINKY ( [facility]) albumin 4.5 gm/dL 3.2-5.2 Albumin PINKY ([facility]) albumin/globulin ratio Albumin/globu maría Ratio PINKY ([facility]) ID Date Data Source [id number] 03/27/2020 11:50:00 AM EST PINKY ([facility]) Name Value Range Interpretation Code Description Data Amy rce(s) Supporting Document(s) white blood count 6.2 10 4.0-10.0 White Blood Count [place] [facility] [facility] red blood count 5.29 10 4.30-6.10 Red Blood Count ATHE NA ([facility]) hemoglobin 14.5 g/dL 13.5-17.5 Hemoglobin PINKY ([facility]) mean corpuscular volume 79.2 fL 80.0-96.0 Below low normal Mean Corpuscular Volume PINKY ([facility]) hematocrit 41.9 % 42.0-52.0 Below low normal Hematocrit PINKY ( [facility]) mean corpuscular hemoglobin 27.4 pg 27.0-33.0 Mean Cor puscular Hemoglobin PINKY ([facility]) mean corpuscular HGB conc 34.6 g/dL 32.0-36.5 Mean Corpu scular HGB Conc PINKY ([facility]) platelet count, automated 135 10 150-450 Below low va l Platelet Count, Automated PINKY ([facility]) red cell distribution width 13.6 % 11.5-14.5 Red Cell Distribution Width PINKY ([facility]) lymph % 19.8 % 24.0-44.0 Below low normal Lymph % PINKY ( [facility]) mono % 4.4 % 0.0-5.0 [place] % PINKY ([facility]) neutrophils % 70.7 % 36.0-66.0 Above high normal Neutrophils % A THENA ([facility]) eos % 3.4 % 0.0-3.0 Above high normal Eos % PINKY ([facility]) baso % 0.6 % 0.0-1.0 Baso % PINKY ([facility]) immature granulocyte % 1.1 % 0-3.0 Immature Gran ulocyte % PINKY ([facility]) nucleated red blood cell % 0.0 % 0-0 Nucleated Red Blood Cell % PINKY ([facility]) neutrophils # 4.4 10 1.5-8.5 Neutrophils # PINKY ( [facility]) lymph # 1.2 10 1.5-5.0 Below low normal Lymph # PINKY ( [facility]) mono # 0.3 10 0.0-0.8 [place] # PINKY ([facility]) baso # 0.0 10 0.0-0.2 Baso # PINKY ([facility]) eos # 0.2 10 0.0-0.5 Eos # PINKY ([facility]) ID Date Data Source [id number] 03/27/2020 11:50:00 AM EST PINKY ([facility]) Name Value Range Interpretation Code Description Data Amy rce(s) Supporting Document(s) blood urea nitrogen 11 mg/dL 7-18 Blood Urea Nitro gen PINKY ([facility]) glucose, fasting 89 mg/dL 70-100 Glucose, Fasting AT [facility] ([facility]) creatinine for GFR 0.90 mg/dL 0.70-1.30 Creatinine for GF R PINKY ([facility]) glomerular filtration rate > 60.0 >60 Glomerula r Filtration Rate PINKY ([facility]) sodium level 140 mEq/L 136-145 Sodium Level PINKY ([facility]) potassium serum 3.7 mEq/L 3.5-5.1 Potassium Serum ATHE NA ([facility]) chloride level 107 mEq/L 98-107 Chloride Level PINKY ([facility]) carbon dioxide level 26 mEq/L 21-32 Carbon Dioxide Level PINKY ([facility]) anion gap 7 mEq/L 8-16 Below low normal Anion Gap PINKY ( [facility]) calcium level 8.8 mg/dL 8.5-10.1 Calcium Level PINKY ( [facility]) AST/SGOT 15 U/L 7-37 AST/SGOT PINKY ([facility]) ALT/SGPT 22 U/L 12-78 ALT/SGPT PINKY ([facility]) total protein 7.1 gm/dL 6.4-8.2 Total Protein PINKY ( [facility]) alkaline phosphatase 48 U/L 45-117 Alkaline Phosph atase PINKY ([facility]) bilirubin,total 0.7 mg/dL 0.2-1.0 Bilirubin,total ATHE NA ([facility]) albumin/globulin ratio Albumin/globu maría Ratio PINKY ([facility]) albumin 4.5 gm/dL 3.2-5.2 Albumin PINKY ([facility]) ID Date Data Source [id number] 03/27/2020 11:50:00 AM EST PINKY ([facility]) Name Value Range Interpretation Code Description Data Amy rce(s) Supporting Document(s) white blood count 6.2 10 4.0-10.0 White Blood Count PINKY ([facility]) red blood count 5.29 10 4.30-6.10 Red Blood Count ATHE ([facility]) hematocrit 41.9 % 42.0-52.0 Below low normal Hematocrit PINKY ( [facility]) hemoglobin 14.5 g/dL 13.5-17.5 Hemoglobin PINKY ([facility]) mean corpuscular hemoglobin 27.4 pg 27.0-33.0 Mean Cor puscular Hemoglobin PINKY ([facility]) mean corpuscular HGB conc 34.6 g/dL 32.0-36.5 Mean Corpu scular HGB Conc PINKY ([facility]) mean corpuscular volume 79.2 fL 80.0-96.0 Below low normal Mean Corpuscular Volume PINKY ([facility]) platelet count, automated 135 10 150-450 Below low va l Platelet Count, Automated PINKY ([facility]) red cell distribution width 13.6 % 11.5-14.5 Red Cell Distribution Width PINKY ([facility]) neutrophils % 70.7 % 36.0-66.0 Above high normal Neutrophils % A THENA ([facility]) eos % 3.4 % 0.0-3.0 Above high normal Eos % PINKY ([facility]) mono % 4.4 % 0.0-5.0 [place] % PINKY ([facility]) lymph % 19.8 % 24.0-44.0 Below low normal Lymph % PINKY ( [facility]) nucleated red blood cell % 0.0 % 0-0 Nucleated Red Blood Cell % PINKY ([facility]) baso % 0.6 % 0.0-1.0 Baso % PINKY ([facility]) immature granulocyte % 1.1 % 0-3.0 Immature Gran ulocyte % PINKY ([facility]) neutrophils # 4.4 10 1.5-8.5 Neutrophils # PINKY ( [facility]) lymph # 1.2 10 1.5-5.0 Below low normal Lymph # PINKY ( [facility]) mono # 0.3 10 0.0-0.8 [place] # PINKY ([facility]) eos # 0.2 10 0.0-0.5 Eos # PINKY ([facility]) baso # 0.0 10 0.0-0.2 Baso # PINKY ([facility]) ID Date Data Source [id number] 03/27/2020 11:50:00 AM EST [place] ([facility]) Name Value Range Interpretation Code Description Data Amy rce(s) Supporting Document(s) glucose, fasting 89 mg/dL 70-100 Glucose, Fasting AT [facility]) blood urea nitrogen 11 mg/dL 7-18 Blood Urea Nitro gen [place] ([facility]) creatinine for GFR 0.90 mg/dL 0.70-1.30 Creatinine for GF R [place] ([facility]) glomerular filtration rate > 60.0 >60 Glomerula r Filtration Rate PINKY ([facility]) sodium level 140 mEq/L 136-145 Sodium Level PINKY ([facility]) chloride level 107 mEq/L 98-107 Chloride Level PINKY ([facility]) potassium serum 3.7 mEq/L 3.5-5.1 Potassium Serum ATH NA ([facility]) carbon dioxide level 26 mEq/L 21-32 Carbon Dioxide Level PINKY ([facility]) calcium level 8.8 mg/dL 8.5-10.1 Calcium Level [place] ( [facility]) anion gap 7 mEq/L 8-16 Below low normal Anion Gap PINKY ( [facility]) alkaline phosphatase 48 U/L 45-117 Alkaline Phosph atase PINKY ([facility]) bilirubin,total 0.7 mg/dL 0.2-1.0 Bilirubin,total ATHE ([facility]) AST/SGOT 15 U/L 7-37 AST/SGOT PINKY ([facility]) ALT/SGPT 22 U/L 12-78 ALT/SGPT PINKY ([facility]) albumin/globulin ratio Albumin/globu maría Ratio PINKY ([facility]) total protein 7.1 gm/dL 6.4-8.2 Total Protein PINKY ( [facility]) albumin 4.5 gm/dL 3.2-5.2 Albumin PINKY ([facility]) ID Date Data Source [id number] 03/27/2020 11:50:00 AM EST PINKY ([facility]) Name Value Range Interpretation Code Description Data Amy rce(s) Supporting Document(s) white blood count 6.2 10 4.0-10.0 White Blood Count PINKY ([facility]) red blood count 5.29 10 4.30-6.10 Red Blood Count ATHE ([facility]) hematocrit 41.9 % 42.0-52.0 Below low normal Hematocrit PINKY ( [facility]) mean corpuscular volume 79.2 fL 80.0-96.0 Below low normal Mean Corpuscular Volume PINKY ([facility]) hemoglobin 14.5 g/dL 13.5-17.5 Hemoglobin PINKY ([facility]) mean corpuscular hemoglobin 27.4 pg 27.0-33.0 Mean Cor puscular Hemoglobin PINKY ([facility]) mean corpuscular HGB conc 34.6 g/dL 32.0-36.5 Mean Corpu scular HGB Conc [place] ([facility]) red cell distribution width 13.6 % 11.5-14.5 Red Cell Distribution Width PINKY ([facility]) neutrophils % 70.7 % 36.0-66.0 Above high normal Neutrophils % A THENA ([facility]) lymph % 19.8 % 24.0-44.0 Below low normal Lymph % PINKY ( [facility]) platelet count, automated 135 10 150-450 Below low va l Platelet Count, Automated PINKY ([facility]) baso % 0.6 % 0.0-1.0 Baso % PINKY ([facility]) eos % 3.4 % 0.0-3.0 Above high normal Eos % PINKY ([facility]) mono % 4.4 % 0.0-5.0 [place] % PINKY ([facility]) nucleated red blood cell % 0.0 % 0-0 Nucleated Red Blood Cell % PINKY ([facility]) neutrophils # 4.4 10 1.5-8.5 Neutrophils # PINKY ( [facility]) immature granulocyte % 1.1 % 0-3.0 Immature Gran ulocyte % PINKY ([facility]) lymph # 1.2 10 1.5-5.0 Below low normal Lymph # PINKY ( [facility]) mono # 0.3 10 0.0-0.8 [place] # PINKY ([facility]) baso # 0.0 10 0.0-0.2 Baso # PINKY ([facility]) eos # 0.2 10 0.0-0.5 Eos # PINKY ([facility]) ID Date Data Source [id number] 03/27/2020 11:50:00 AM EST PINKY ([facility]) Name Value Range Interpretation Code Description Data Amy rce(s) Supporting Document(s) glucose, fasting 89 mg/dL 70-100 Glucose, Fasting AT [facility] ([facility]) blood urea nitrogen 11 mg/dL 7-18 Blood Urea Nitro gen PINKY ([facility]) creatinine for GFR 0.90 mg/dL 0.70-1.30 Creatinine for GF R PINKY ([facility]) glomerular filtration rate > 60.0 >60 Glomerula r Filtration Rate PINKY ([facility]) sodium level 140 mEq/L 136-145 Sodium Level PINKY ([facility]) potassium serum 3.7 mEq/L 3.5-5.1 Potassium Serum ATHE NA ([facility]) carbon dioxide level 26 mEq/L 21-32 Carbon Dioxide Level PINKY ([facility]) chloride level 107 mEq/L 98-107 Chloride Level PINKY ([facility]) anion gap 7 mEq/L 8-16 Below low normal Anion Gap PINKY ( [facility]) calcium level 8.8 mg/dL 8.5-10.1 Calcium Level PINKY ( [facility]) AST/SGOT 15 U/L 7-37 AST/SGOT PINKY ([facility]) ALT/SGPT 22 U/L 12-78 ALT/SGPT PINKY ([facility]) alkaline phosphatase 48 U/L 45-117 Alkaline Phosph atase PINKY ([facility]) bilirubin,total 0.7 mg/dL 0.2-1.0 Bilirubin,total ATHE NA ([facility]) total protein 7.1 gm/dL 6.4-8.2 Total Protein PINKY ( [facility]) albumin 4.5 gm/dL 3.2-5.2 Albumin PINKY ([facility]) albumin/globulin ratio Albumin/globu maría Ratio PINKY ([facility]) ID Date Data Source [id number] 03/27/2020 11:50:00 AM EST PINKY ([facility]) Name Value Range Interpretation Code Description Data Amy rce(s) Supporting Document(s) white blood count 6.2 10 4.0-10.0 White Blood Count PINKY ([facility]) hemoglobin 14.5 g/dL 13.5-17.5 Hemoglobin PINKY ([facility]) red blood count 5.29 10 4.30-6.10 Red Blood Count ATHE NA ([facility]) mean corpuscular volume 79.2 fL 80.0-96.0 Below low normal Mean Corpuscular Volume PINKY ([facility]) hematocrit 41.9 % 42.0-52.0 Below low normal Hematocrit PINKY ( [facility]) mean corpuscular hemoglobin 27.4 pg 27.0-33.0 Mean Cor puscular Hemoglobin PINKY ([facility]) mean corpuscular HGB conc 34.6 g/dL 32.0-36.5 Mean Corpu scular HGB Conc PINKY ([facility]) red cell distribution width 13.6 % 11.5-14.5 Red Cell Distribution Width PINKY ([facility]) lymph % 19.8 % 24.0-44.0 Below low normal Lymph % PINKY ( [facility]) neutrophils % 70.7 % 36.0-66.0 Above high normal Neutrophils % A THENA ([facility]) platelet count, automated 135 10 150-450 Below low va l Platelet Count, Automated [place] ([facility]) eos % 3.4 % 0.0-3.0 Above high normal Eos % PINKY ([facility]) mono % 4.4 % 0.0-5.0 [place] % PINKY ([facility]) baso % 0.6 % 0.0-1.0 Baso % [place] ([facility]) nucleated red blood cell % 0.0 % 0-0 Nucleated Red Blood Cell % PINKY ([facility]) neutrophils # 4.4 10 1.5-8.5 Neutrophils # [place] ( [facility]) immature granulocyte % 1.1 % 0-3.0 Immature Gran ulocyte % PINKY ([facility]) mono # 0.3 10 0.0-0.8 [place] # PINKY ([facility]) lymph # 1.2 10 1.5-5.0 Below low normal Lymph # PINKY ( [facility]) eos # 0.2 10 0.0-0.5 Eos # PINKY ([facility]) baso # 0.0 10 0.0-0.2 Baso # PINKY ([facility]) ID Date Data Source [id number] 03/27/2020 11:50:00 AM EST PINKY ([facility]) Name Value Range Interpretation Code Description Data Amy rce(s) Supporting Document(s) glucose, fasting 89 mg/dL 70-100 Glucose, Fasting AT [place] ([facility]) glomerular filtration rate > 60.0 >60 Glomerula r Filtration Rate [place] ([facility]) creatinine for GFR 0.90 mg/dL 0.70-1.30 Creatinine for GF R PINKY ([facility]) blood urea nitrogen 11 mg/dL 7-18 Blood Urea Nitro gen PINKY ([facility]) chloride level 107 mEq/L 98-107 Chloride Level PINKY ([facility]) potassium serum 3.7 mEq/L 3.5-5.1 Potassium Serum ATHE NA ([facility]) sodium level 140 mEq/L 136-145 Sodium Level PINKY ([facility]) calcium level 8.8 mg/dL 8.5-10.1 Calcium Level PINKY ( [facility]) anion gap 7 mEq/L 8-16 Below low normal Anion Gap PINKY ( [facility]) carbon dioxide level 26 mEq/L 21-32 Carbon Dioxide Level PINKY ([facility]) AST/SGOT 15 U/L 7-37 AST/SGOT P[place] ([facility]) ALT/SGPT 22 U/L 12-78 ALT/SGPT PINKY ([facility]) alkaline phosphatase 48 U/L 45-117 Alkaline Phosph atase PINKY ([facility]) albumin 4.5 gm/dL 3.2-5.2 Albumin PINKY ([facility]) total protein 7.1 gm/dL 6.4-8.2 Total Protein PINKY ( [facility]) bilirubin,total 0.7 mg/dL 0.2-1.0 Bilirubin,total ATHE ([facility]) albumin/globulin ratio Albumin/globu maría Ratio PINKY ([facility]) ID Date Data Source [id number] 03/27/2020 11:50:00 AM EST [place]INK[place] ([facility]) Name Value Range Interpretation Code Description Data Amy rce(s) Supporting Document(s) white blood count 6.2 10 4.0-10.0 White Blood Count PINKY ([facility]) red blood count 5.29 10 4.30-6.10 Red Blood Count ATHE ([facility]) hemoglobin 14.5 g/dL 13.5-17.5 Hemoglobin PINKY ([facility]) hematocrit 41.9 % 42.0-52.0 Below low normal Hematocrit PINKY ( [facility]) mean corpuscular hemoglobin 27.4 pg 27.0-33.0 Mean Cor puscular Hemoglobin PINKY ([facility]) mean corpuscular volume 79.2 fL 80.0-96.0 Below low normal Mean Corpuscular Volume PINKY ([facility]) mean corpuscular HGB conc 34.6 g/dL 32.0-36.5 Mean Corpu scular HGB Conc PINKY ([facility]) neutrophils % 70.7 % 36.0-66.0 Above high normal Neutrophils % A THENA ([facility]) red cell distribution width 13.6 % 11.5-14.5 Red Cell Distribution Width PINKY ([facility]) platelet count, automated 135 10 150-450 Below low va l Platelet Count, Automated PINK[place] ([facility]) mono % 4.4 % 0.0-5.0 [place] % PINKY ([facility]) lymph % 19.8 % 24.0-44.0 Below low normal Lymph % PINKY ( [facility]) eos % 3.4 % 0.0-3.0 Above high normal Eos % PINKY ([facility]) baso % 0.6 % 0.0-1.0 Baso % PINKY ([facility]) immature granulocyte % 1.1 % 0-3.0 Immature Gran ulocyte % PINKY ([facility]) lymph # 1.2 10 1.5-5.0 Below low normal Lymph # PINKY ( [facility]) neutrophils # 4.4 10 1.5-8.5 Neutrophils # PINKY ( [facility]) nucleated red blood cell % 0.0 % 0-0 Nucleated Red Blood Cell % PINKY ([facility]) mono # 0.3 10 0.0-0.8 [place] # PINKY ([facility]) eos # 0.2 10 0.0-0.5 Eos # PINKY ([facility]) baso # 0.0 10 0.0-0.2 Baso # PINKY ([facility]) ID Date Data Source [id number] 03/27/2020 11:50:00 AM EST [place]INK[place] ([facility]) Name Value Range Interpretation Code Description Data Amy rce(s) Supporting Document(s) creatinine for GFR 0.90 mg/dL 0.70-1.30 Creatinine for GF R PINKY ([facility]) blood urea nitrogen 11 mg/dL 7-18 Blood Urea Nitro gen PINKY ([facility]) glucose, fasting 89 mg/dL 70-100 Glucose, Fasting AT [facility] ([facility]) glomerular filtration rate > 60.0 >60 Glomerula r Filtration Rate PINKY ([facility]) sodium level 140 mEq/L 136-145 Sodium Level PINKY ([facility]) potassium serum 3.7 mEq/L 3.5-5.1 Potassium Serum ATHE NA ([facility]) chloride level 107 mEq/L 98-107 Chloride Level PINKY ([facility]) anion gap 7 mEq/L 8-16 Below low normal Anion Gap PINKY ( [facility]) calcium level 8.8 mg/dL 8.5-10.1 Calcium Level PINKY ( [facility]) carbon dioxide level 26 mEq/L 21-32 Carbon Dioxide Level PINKY ([facility]) ALT/SGPT 22 U/L 12-78 ALT/SGPT [facility] ([facility]) AST/SGOT 15 U/L 7-37 AST/SGOT [place] ([facility]) alkaline phosphatase 48 U/L 45-117 Alkaline Phosph atase PINKY ([facility]) bilirubin,total 0.7 mg/dL 0.2-1.0 Bilirubin,total ATHE NA ([facility]) total protein 7.1 gm/dL 6.4-8.2 Total Protein PINKY ( [facility]) albumin 4.5 gm/dL 3.2-5.2 Albumin [place]INK[place] ([facility]) albumin/globulin ratio Albumin/globu maría Ratio PINKY ([facility]) ID Date Data Source [id number] 03/27/2020 11:50:00 AM EST [place] ([facility]) Name Value Range Interpretation Code Description Data Amy rce(s) Supporting Document(s) white blood count 6.2 10 4.0-10.0 White Blood Count PINKY ([facility]) hemoglobin 14.5 g/dL 13.5-17.5 Hemoglobin PINKY ([facility]) red blood count 5.29 10 4.30-6.10 Red Blood Count ATHE NA ([facility]) mean corpuscular hemoglobin 27.4 pg 27.0-33.0 Mean Cor puscular Hemoglobin PINKY ([facility]) hematocrit 41.9 % 42.0-52.0 Below low normal Hematocrit PINKY ( [facility]) mean corpuscular volume 79.2 fL 80.0-96.0 Below low normal Mean Corpuscular Volume PINKY ([facility]) platelet count, automated 135 10 150-450 Below low va l Platelet Count, Automated [place] ([facility]) mean corpuscular HGB conc 34.6 g/dL 32.0-36.5 Mean Corpu scular HGB Conc PINKY ([facility]) red cell distribution width 13.6 % 11.5-14.5 Red Cell Distribution Width [place] ([facility]) neutrophils % 70.7 % 36.0-66.0 Above high normal Neutrophils % A THENA ([facility]) eos % 3.4 % 0.0-3.0 Above high normal Eos % PINKY ([facility]) mono % 4.4 % 0.0-5.0 [place] % PINKY ([facility]) lymph % 19.8 % 24.0-44.0 Below low normal Lymph % PINKY ( [facility]) nucleated red blood cell % 0.0 % 0-0 Nucleated Red Blood Cell % PINKY ([facility]) immature granulocyte % 1.1 % 0-3.0 Immature Gran ulocyte % PINKY ([facility]) baso % 0.6 % 0.0-1.0 Baso % PINKY ([facility]) lymph # 1.2 10 1.5-5.0 Below low normal Lymph # PINKY ( [facility]) neutrophils # 4.4 10 1.5-8.5 Neutrophils # PINKY ( [facility]) eos # 0.2 10 0.0-0.5 Eos # PINKY ([facility]) baso # 0.0 10 0.0-0.2 Baso # PINKY ([facility]) mono # 0.3 10 0.0-0.8 [place] # PINKY ([facility]) ID Date Data Source [id number] 03/27/2020 11:50:00 AM EST [place] ([facility]) Name Value Range Interpretation Code Description Data Amy rce(s) Supporting Document(s) glucose, fasting 89 mg/dL 70-100 Glucose, Fasting AT [facility] ([facility]) creatinine for GFR 0.90 mg/dL 0.70-1.30 Creatinine for GF R [place] ([facility]) glomerular filtration rate > 60.0 >60 Glomerula r Filtration Rate [place] ([facility]) blood urea nitrogen 11 mg/dL 7-18 Blood Urea Nitro gen [place] ([facility]) potassium serum 3.7 mEq/L 3.5-5.1 Potassium Serum ATHE NA ([facility]) sodium level 140 mEq/L 136-145 Sodium Level [place] ([facility]) chloride level 107 mEq/L 98-107 Chloride Level [place] ([facility]) calcium level 8.8 mg/dL 8.5-10.1 Calcium Level [place] ( [facility]) carbon dioxide level 26 mEq/L 21-32 Carbon Dioxide Level [place] ([facility]) anion gap 7 mEq/L 8-16 Below low normal Anion Gap [place] ( [facility]) alkaline phosphatase 48 U/L 45-117 Alkaline Phosph atase [place] ([facility]) AST/SGOT 15 U/L 7-37 AST/SGOT [place] ([facility]) ALT/SGPT 22 U/L 12-78 ALT/SGPT [place] ([facility]) total protein 7.1 gm/dL 6.4-8.2 Total Protein [place]INK[place] ( [facility]) albumin 4.5 gm/dL 3.2-5.2 Albumin [place] ([facility]) bilirubin,total 0.7 mg/dL 0.2-1.0 Bilirubin,total ATHE NA ([facility]) albumin/globulin ratio Albumin/globu maría Ratio [place]INK[place] ([facility]) ID Date Data Source [id number] 03/27/2020 11:50:00 AM EST [place] ([facility]) Name Value Range Interpretation Code Description Data Amy rce(s) Supporting Document(s) white blood count 6.2 10 4.0-10.0 White Blood Count [place] ([facility]) hemoglobin 14.5 g/dL 13.5-17.5 Hemoglobin [place] ([facility]) red blood count 5.29 10 4.30-6.10 Red Blood Count AT[place] ([facility]) mean corpuscular volume 79.2 fL 80.0-96.0 Below low normal Mean Corpuscular Volume [place]Y ([facility]) hematocrit 41.9 % 42.0-52.0 Below low normal Hematocrit P[place]Y ( [facility]) mean corpuscular hemoglobin 27.4 pg 27.0-33.0 Mean Cor puscular Hemoglobin [place] ([facility]) red cell distribution width 13.6 % 11.5-14.5 Red Cell Distribution Width [place] ([facility]) mean corpuscular HGB conc 34.6 g/dL 32.0-36.5 Mean Corpu scular HGB Conc [place] ([facility]) platelet count, automated 135 10 150-450 Below low va l Platelet Count, Automated [place] ([facility]) neutrophils % 70.7 % 36.0-66.0 Above high normal Neutrophils % A THENA ([facility]) lymph % 19.8 % 24.0-44.0 Below low normal Lymph % P[place] ( [facility]) baso % 0.6 % 0.0-1.0 Baso % [facility] ([facility]) eos % 3.4 % 0.0-3.0 Above high normal Eos % P[place] ([facility]) mono % 4.4 % 0.0-5.0 [place] % PINKY ([facility]) immature granulocyte % 1.1 % 0-3.0 Immature Gran ulocyte % [facility] ([facility]) nucleated red blood cell % 0.0 % 0-0 Nucleated Red Blood Cell % [facility] ([facility]) neutrophils # 4.4 10 1.5-8.5 Neutrophils # [place]INK[place] ( [facility]) eos # 0.2 10 0.0-0.5 Eos # [facility] ([facility]) mono # 0.3 10 0.0-0.8 [place] # PINKY ([facility]) lymph # 1.2 10 1.5-5.0 Below low normal Lymph # PINKY ( [facility]) baso # 0.0 10 0.0-0.2 Baso # [place] ([facility]) ID Date Data Source [id number] 03/27/2020 11:50:00 AM EST [place] ([facility]) Name Value Range Interpretation Code Description Data Amy rce(s) Supporting Document(s) glucose, fasting 89 mg/dL 70-100 Glucose, Fasting AT [facility] ([facility]) glomerular filtration rate > 60.0 >60 Glomerula r Filtration Rate [place] ([facility]) creatinine for GFR 0.90 mg/dL 0.70-1.30 Creatinine for GF R [place] ([facility]) blood urea nitrogen 11 mg/dL 7-18 Blood Urea Nitro gen PINKY ([facility]) chloride level 107 mEq/L 98-107 Chloride Level [place] ([facility]) sodium level 140 mEq/L 136-145 Sodium Level [facility] ([facility]) potassium serum 3.7 mEq/L 3.5-5.1 Potassium Serum ATHE NA ([facility]) calcium level 8.8 mg/dL 8.5-10.1 Calcium Level [place] ( [facility]) anion gap 7 mEq/L 8-16 Below low normal Anion Gap PNIKY ( [facility]) carbon dioxide level 26 mEq/L 21-32 Carbon Dioxide Level [facility]INK[facility] ([facility]) ALT/SGPT 22 U/L 12-78 ALT/SGPT [facility] ([facility]) AST/SGOT 15 U/L 7-37 AST/SGOT [place] ([facility]) alkaline phosphatase 48 U/L 45-117 Alkaline Phosph atase [facility] ([facility]) total protein 7.1 gm/dL 6.4-8.2 Total Protein PINK[place] ( [facility]) albumin/globulin ratio Albumin/globu maría Ratio PINKY ([facility]) albumin 4.5 gm/dL 3.2-5.2 Albumin [facility] ([facility]) bilirubin,total 0.7 mg/dL 0.2-1.0 Bilirubin,total ATHE NA ([facility]) ID Date Data Source [id number] 03/27/2020 11:50:00 AM EST PINKY ([facility]) Name Value Range Interpretation Code Description Data Amy rce(s) Supporting Document(s) white blood count 6.2 10 4.0-10.0 White Blood Count PINK[facility] ([facility]) red blood count 5.29 10 4.30-6.10 Red Blood Count ATHE ([facility]) hemoglobin 14.5 g/dL 13.5-17.5 Hemoglobin [facility] ([facility]) hematocrit 41.9 % 42.0-52.0 Below low normal Hematocrit PINK[facility] ( [facility]) mean corpuscular hemoglobin 27.4 pg 27.0-33.0 Mean Cor puscular Hemoglobin PINKY ([facility]) mean corpuscular volume 79.2 fL 80.0-96.0 Below low normal Mean Corpuscular Volume [facility] ([facility]) mean corpuscular HGB conc 34.6 g/dL 32.0-36.5 Mean Corpu scular HGB Conc [facility] ([facility]) red cell distribution width 13.6 % 11.5-14.5 Red Cell Distribution Width [facility] ([facility]) neutrophils % 70.7 % 36.0-66.0 Above high normal Neutrophils % A THENA ([facility]) platelet count, automated 135 10 150-450 Below low va l Platelet Count, Automated [place] ([facility]) eos % 3.4 % 0.0-3.0 Above high normal Eos % PINK[facility] ([facility]) lymph % 19.8 % 24.0-44.0 Below low normal Lymph % PINK[place] ( [facility]) mono % 4.4 % 0.0-5.0 [place] % [facility] ([facility]) nucleated red blood cell % 0.0 % 0-0 Nucleated Red Blood Cell % [place] ([facility]) immature granulocyte % 1.1 % 0-3.0 Immature Gran ulocyte % [place] ([facility]) baso % 0.6 % 0.0-1.0 Baso % [place] ([facility]) neutrophils # 4.4 10 1.5-8.5 Neutrophils # PINKY ( [facility]) mono # 0.3 10 0.0-0.8 [place] # PINK[facility] ([facility]) lymph # 1.2 10 1.5-5.0 Below low normal Lymph # PINKY ( [facility]) baso # 0.0 10 0.0-0.2 Baso # [place] ([facility]) eos # 0.2 10 0.0-0.5 Eos # [facility] ([facility]) ID Date Data Source [id number] 03/27/2020 11:50:00 AM EST [place] ([facility]) Name Value Range Interpretation Code Description Data Amy rce(s) Supporting Document(s) glucose, fasting 89 mg/dL 70-100 Glucose, Fasting AT [facility] ([facility]) glomerular filtration rate > 60.0 >60 Glomerula r Filtration Rate [place] ([facility]) creatinine for GFR 0.90 mg/dL 0.70-1.30 Creatinine for GF R [place] ([facility]) blood urea nitrogen 11 mg/dL 7-18 Blood Urea Nitro gen [facility]INK[facility] ([facility]) sodium level 140 mEq/L 136-145 Sodium Level [facility] ([facility]) potassium serum 3.7 mEq/L 3.5-5.1 Potassium Serum ATHE ([facility]) chloride level 107 mEq/L 98-107 Chloride Level [facility]INK[facility] ([facility]) anion gap 7 mEq/L 8-16 Below low normal Anion Gap PINK[place] ( [facility]) calcium level 8.8 mg/dL 8.5-10.1 Calcium Level [place] ( [facility]) carbon dioxide level 26 mEq/L 21-32 Carbon Dioxide Level [facility] ([facility]) alkaline phosphatase 48 U/L 45-117 Alkaline Phosph atase [facility] ([facility]) ALT/SGPT 22 U/L 12-78 ALT/SGPT [facility] ([facility]) AST/SGOT 15 U/L 7-37 AST/SGOT [facility] ([facility]) bilirubin,total 0.7 mg/dL 0.2-1.0 Bilirubin,total ATHE ([facility]) total protein 7.1 gm/dL 6.4-8.2 Total Protein [facility]INK[facility] ( [facility]) albumin 4.5 gm/dL 3.2-5.2 Albumin [facility] ([facility]) albumin/globulin ratio Albumin/globu maría Ratio [facility]INKY ([facility]) ID Date Data Source [id number] 03/27/2020 11:50:00 AM EST PINK[place] ([facility]) Name Value Range Interpretation Code Description Data Amy rce(s) Supporting Document(s) white blood count 6.2 10 4.0-10.0 White Blood Count [facility] ([facility]) hemoglobin 14.5 g/dL 13.5-17.5 Hemoglobin [facility] ([facility]) hematocrit 41.9 % 42.0-52.0 Below low normal Hematocrit PINK[facility] ( [facility]) red blood count 5.29 10 4.30-6.10 Red Blood Count ATHE ([facility]) mean corpuscular volume 79.2 fL 80.0-96.0 Below low normal Mean Corpuscular Volume [facility] ([facility]) mean corpuscular hemoglobin 27.4 pg 27.0-33.0 Mean Cor puscular Hemoglobin PINK[facility] ([facility]) mean corpuscular HGB conc 34.6 g/dL 32.0-36.5 Mean Corpu scular HGB Conc [facility]INK[facility] ([facility]) platelet count, automated 135 10 150-450 Below low va l Platelet Count, Automated [facility] ([facility]) red cell distribution width 13.6 % 11.5-14.5 Red Cell Distribution Width [facility] ([facility]) neutrophils % 70.7 % 36.0-66.0 Above high normal Neutrophils % A THENA ([facility]) lymph % 19.8 % 24.0-44.0 Below low normal Lymph % [place] ( [facility]) baso % 0.6 % 0.0-1.0 Baso % [facility] ([facility]) eos % 3.4 % 0.0-3.0 Above high normal Eos % PINK[facility] ([facility]) mono % 4.4 % 0.0-5.0 [place] % [facility] ([facility]) immature granulocyte % 1.1 % 0-3.0 Immature Gran ulocyte % PINKY ([facility]) neutrophils # 4.4 10 1.5-8.5 Neutrophils # [place] ( [facility]) nucleated red blood cell % 0.0 % 0-0 Nucleated Red Blood Cell % PINKY ([facility]) eos # 0.2 10 0.0-0.5 Eos # [facility] ([facility]) lymph # 1.2 10 1.5-5.0 Below low normal Lymph # PINK[facility] ( [facility]) mono # 0.3 10 0.0-0.8 [place] # [facility] ([facility]) baso # 0.0 10 0.0-0.2 Baso # [facility] ([facility]) ID Date Data Source [id number] 03/27/2020 11:50:00 AM EST PINK[place] ([facility]) Name Value Range Interpretation Code Description Data Amy rce(s) Supporting Document(s) glucose, fasting 89 mg/dL 70-100 Glucose, Fasting AT [facility] ([facility]) blood urea nitrogen 11 mg/dL 7-18 Blood Urea Nitro gen PINK[facility] ([facility]) creatinine for GFR 0.90 mg/dL 0.70-1.30 Creatinine for GF R PINK[facility] ([facility]) glomerular filtration rate > 60.0 >60 Glomerula r Filtration Rate [facility] ([facility]) chloride level 107 mEq/L 98-107 Chloride Level [facility] ([facility]) potassium serum 3.7 mEq/L 3.5-5.1 Potassium Serum ATHE NA ([facility]) sodium level 140 mEq/L 136-145 Sodium Level [facility] ([facility]) anion gap 7 mEq/L 8-16 Below low normal Anion Gap PINK[facility] ( [facility]) carbon dioxide level 26 mEq/L 21-32 Carbon Dioxide Level [facility] ([facility]) calcium level 8.8 mg/dL 8.5-10.1 Calcium Level [place] ( [facility]) ALT/SGPT 22 U/L 12-78 ALT/SGPT [facility] ([facility]) alkaline phosphatase 48 U/L 45-117 Alkaline Phosph atase [facility] ([facility]) AST/SGOT 15 U/L 7-37 AST/SGOT [facility] ([facility]) bilirubin,total 0.7 mg/dL 0.2-1.0 Bilirubin,total ATHE NA ([facility]) albumin 4.5 gm/dL 3.2-5.2 Albumin [facility] ([facility]) total protein 7.1 gm/dL 6.4-8.2 Total Protein [place]INK[place] ( [facility]) albumin/globulin ratio Albumin/globu maría Ratio PINKY ([facility]) ID Date Data Source [id number] 03/27/2020 11:50:00 AM EST PINK[place] ([facility]) Name Value Range Interpretation Code Description Data Amy rce(s) Supporting Document(s) red blood count 5.29 10 4.30-6.10 Red Blood Count ATHE NA ([facility]) white blood count 6.2 10 4.0-10.0 White Blood Count [facility] ([facility]) hematocrit 41.9 % 42.0-52.0 Below low normal Hematocrit PINK[facility] ( [facility]) mean corpuscular volume 79.2 fL 80.0-96.0 Below low normal Mean Corpuscular Volume [facility]INK[facility] ([facility]) hemoglobin 14.5 g/dL 13.5-17.5 Hemoglobin [facility] ([facility]) red cell distribution width 13.6 % 11.5-14.5 Red Cell Distribution Width [facility] ([facility]) mean corpuscular hemoglobin 27.4 pg 27.0-33.0 Mean Cor puscular Hemoglobin PINK[facility] ([facility]) mean corpuscular HGB conc 34.6 g/dL 32.0-36.5 Mean Corpu scular HGB Conc PINK[facility] ([facility]) platelet count, automated 135 10 150-450 Below low va l Platelet Count, Automated [facility] ([facility]) mono % 4.4 % 0.0-5.0 [place] % [facility] ([facility]) neutrophils % 70.7 % 36.0-66.0 Above high normal Neutrophils % A THENA ([facility]) lymph % 19.8 % 24.0-44.0 Below low normal Lymph % IPNKY ( [facility]) baso % 0.6 % 0.0-1.0 Baso % [facility] ([facility]) immature granulocyte % 1.1 % 0-3.0 Immature Gran ulocyte % PINK[facility] ([facility]) eos % 3.4 % 0.0-3.0 Above high normal Eos % [facility] ([facility]) mono # 0.3 10 0.0-0.8 [place] # PINKY ([facility]) lymph # 1.2 10 1.5-5.0 Below low normal Lymph # PINKY ( [facility]) neutrophils # 4.4 10 1.5-8.5 Neutrophils # PINKY ( [facility]) nucleated red blood cell % 0.0 % 0-0 Nucleated Red Blood Cell % [facility]INK[facility] ([facility]) baso # 0.0 10 0.0-0.2 Baso # [facility] ([facility]) eos # 0.2 10 0.0-0.5 Eos # [facility] ([facility]) ID Date Data Source [id number] 03/27/2020 11:50:00 AM EST [place] ([facility]) Name Value Range Interpretation Code Description Data Amy rce(s) Supporting Document(s) glucose, fasting 89 mg/dL 70-100 Glucose, Fasting AT [facility]) blood urea nitrogen 11 mg/dL 7-18 Blood Urea Nitro gen [place] ([facility]) creatinine for GFR 0.90 mg/dL 0.70-1.30 Creatinine for GF R [place] ([facility]) glomerular filtration rate > 60.0 >60 Glomerula r Filtration Rate [place] ([facility]) sodium level 140 mEq/L 136-145 Sodium Level [facility] ([facility]) chloride level 107 mEq/L 98-107 Chloride Level [facility] ([facility]) potassium serum 3.7 mEq/L 3.5-5.1 Potassium Serum ATHE NA ([facility]) calcium level 8.8 mg/dL 8.5-10.1 Calcium Level [place] ( [facility]) anion gap 7 mEq/L 8-16 Below low normal Anion Gap PINK[place] ( [facility]) carbon dioxide level 26 mEq/L 21-32 Carbon Dioxide Level [facility] ([facility]) alkaline phosphatase 48 U/L 45-117 Alkaline Phosph atase [facility] ([facility]) AST/SGOT 15 U/L 7-37 AST/SGOT [facility] ([facility]) ALT/SGPT 22 U/L 12-78 ALT/SGPT [facility] ([facility]) total protein 7.1 gm/dL 6.4-8.2 Total Protein [place] ( [facility]) albumin 4.5 gm/dL 3.2-5.2 Albumin [facility] ([facility]) bilirubin,total 0.7 mg/dL 0.2-1.0 Bilirubin,total ATHE NA ([facility]) albumin/globulin ratio Albumin/globu maría Ratio [facility]INKY ([facility]) ID Date Data Source [id number] 03/27/2020 11:50:00 AM EST [place] ([facility]) Name Value Range Interpretation Code Description Data Amy rce(s) Supporting Document(s) white blood count 6.2 10 4.0-10.0 White Blood Count [facility] ([facility]) red blood count 5.29 10 4.30-6.10 Red Blood Count ATHE ([facility]) hemoglobin 14.5 g/dL 13.5-17.5 Hemoglobin [place] ([facility]) mean corpuscular volume 79.2 fL 80.0-96.0 Below low normal Mean Corpuscular Volume [facility] ([facility]) mean corpuscular hemoglobin 27.4 pg 27.0-33.0 Mean Cor puscular Hemoglobin [facility] ([facility]) hematocrit 41.9 % 42.0-52.0 Below low normal Hematocrit PINK[facility] ( [facility]) red cell distribution width 13.6 % 11.5-14.5 Red Cell Distribution Width [facility] ([facility]) mean corpuscular HGB conc 34.6 g/dL 32.0-36.5 Mean Corpu scular HGB Conc [facility] ([facility]) platelet count, automated 135 10 150-450 Below low va l Platelet Count, Automated [facility] ([facility]) lymph % 19.8 % 24.0-44.0 Below low normal Lymph % PINK[facility] ( [facility]) mono % 4.4 % 0.0-5.0 [place] % [facility] ([facility]) neutrophils % 70.7 % 36.0-66.0 Above high normal Neutrophils % A THENA ([facility]) baso % 0.6 % 0.0-1.0 Baso % [facility] ([facility]) immature granulocyte % 1.1 % 0-3.0 Immature Gran ulocyte % PINK[facility] ([facility]) eos % 3.4 % 0.0-3.0 Above high normal Eos % [facility] ([facility]) lymph # 1.2 10 1.5-5.0 Below low normal Lymph # PINKY ( [facility]) neutrophils # 4.4 10 1.5-8.5 Neutrophils # [place] ( [facility]) nucleated red blood cell % 0.0 % 0-0 Nucleated Red Blood Cell % [facility] ([facility]) eos # 0.2 10 0.0-0.5 Eos # [facility] ([facility]) baso # 0.0 10 0.0-0.2 Baso # [place] ([facility]) mono # 0.3 10 0.0-0.8 [place] # [place] ([facility]) ID Date Data Source [id number] 03/27/2020 11:50:00 AM EST [place] ([facility]) Name Value Range Interpretation Code Description Data Amy rce(s) Supporting Document(s) glucose, fasting 89 mg/dL 70-100 Glucose, Fasting AT [facility]) blood urea nitrogen 11 mg/dL 7-18 Blood Urea Nitro gen [place] ([facility]) creatinine for GFR 0.90 mg/dL 0.70-1.30 Creatinine for GF R [place] ([facility]) potassium serum 3.7 mEq/L 3.5-5.1 Potassium Serum ATHE NA ([facility]) glomerular filtration rate > 60.0 >60 Glomerula r Filtration Rate [facility] ([facility]) sodium level 140 mEq/L 136-145 Sodium Level PINKY ([facility]) carbon dioxide level 26 mEq/L 21-32 Carbon Dioxide Level [facility] ([facility]) chloride level 107 mEq/L 98-107 Chloride Level [place] ([facility]) anion gap 7 mEq/L 8-16 Below low normal Anion Gap [place] ( [facility]) calcium level 8.8 mg/dL 8.5-10.1 Calcium Level [place] ( [facility]) ALT/SGPT 22 U/L 12-78 ALT/SGPT [facility] ([facility]) AST/SGOT 15 U/L 7-37 AST/SGOT [facility] ([facility]) alkaline phosphatase 48 U/L 45-117 Alkaline Phosph atase [facility] ([facility]) bilirubin,total 0.7 mg/dL 0.2-1.0 Bilirubin,total ATHE NA ([facility]) total protein 7.1 gm/dL 6.4-8.2 Total Protein [place]INK[place] ( [facility]) albumin 4.5 gm/dL 3.2-5.2 Albumin [facility] ([facility]) albumin/globulin ratio Albumin/globu maría Ratio [facility] ([facility]) ID Date Data Source [id number] 03/27/2020 11:50:00 AM EST [place] ([facility]) Name Value Range Interpretation Code Description Data Amy rce(s) Supporting Document(s) white blood count 6.2 10 4.0-10.0 White Blood Count [facility] ([facility]) hemoglobin 14.5 g/dL 13.5-17.5 Hemoglobin [facility] ([facility]) red blood count 5.29 10 4.30-6.10 Red Blood Count AT[facility] ([facility]) hematocrit 41.9 % 42.0-52.0 Below low normal Hematocrit [facility]INK[facility] ( [facility]) mean corpuscular volume 79.2 fL 80.0-96.0 Below low normal Mean Corpuscular Volume [facility] ([facility]) mean corpuscular HGB conc 34.6 g/dL 32.0-36.5 Mean Corpu scular HGB Conc [facility] ([facility]) mean corpuscular hemoglobin 27.4 pg 27.0-33.0 Mean Cor puscular Hemoglobin [facility] ([facility]) red cell distribution width 13.6 % 11.5-14.5 Red Cell Distribution Width [facility] ([facility]) lymph % 19.8 % 24.0-44.0 Below low normal Lymph % [facility] ( [facility]) neutrophils % 70.7 % 36.0-66.0 Above high normal Neutrophils % A THENA ([facility]) platelet count, automated 135 10 150-450 Below low va l Platelet Count, Automated [facility] ([facility]) mono % 4.4 % 0.0-5.0 [place] % [facility] ([facility]) eos % 3.4 % 0.0-3.0 Above high normal Eos % [facility] ([facility]) nucleated red blood cell % 0.0 % 0-0 Nucleated Red Blood Cell % [facility] ([facility]) immature granulocyte % 1.1 % 0-3.0 Immature Gran ulocyte % [facility] ([facility]) baso % 0.6 % 0.0-1.0 Baso % [facility] ([facility]) lymph # 1.2 10 1.5-5.0 Below low normal Lymph # [place] ( [facility]) neutrophils # 4.4 10 1.5-8.5 Neutrophils # PINK[place] ( [facility]) mono # 0.3 10 0.0-0.8 [place] # [facility] ([facility]) eos # 0.2 10 0.0-0.5 Eos # [facility] ([facility]) baso # 0.0 10 0.0-0.2 Baso # [facility] ([facility]) ID Date Data Source [id number] 03/27/2020 11:50:00 AM EST [place] ([facility]) Name Value Range Interpretation Code Description Data Amy rce(s) Supporting Document(s) glucose, fasting 89 mg/dL 70-100 Glucose, Fasting AT [facility] ([facility]) creatinine for GFR 0.90 mg/dL 0.70-1.30 Creatinine for GF R [place] ([facility]) blood urea nitrogen 11 mg/dL 7-18 Blood Urea Nitro gen [facility] ([facility]) sodium level 140 mEq/L 136-145 [facility] filtration rate > 60.0 >60 Glomerula r Filtration Rate [facility] ([facility]) chloride level 107 mEq/L 98-107 Chloride Level [facility] ([facility]) potassium serum 3.7 mEq/L 3.5-5.1 Potassium Serum ATHE ([facility]) carbon dioxide level 26 mEq/L 21-32 Carbon Dioxide Level [facility] ([facility]) anion gap 7 mEq/L 8-16 Below low normal Anion Gap P[facility] ( [facility]) calcium level 8.8 mg/dL 8.5-10.1 Calcium Level [place] ( [facility]) ALT/SGPT 22 U/L 12-78 ALT/SGPT [facility] ([facility]) AST/SGOT 15 U/L 7-37 AST/SGOT [facility] ([facility]) bilirubin,total 0.7 mg/dL 0.2-1.0 Bilirubin,total ATHE ([facility]) total protein 7.1 gm/dL 6.4-8.2 Total Protein [facility]INK[place] ( [facility]) alkaline phosphatase 48 U/L 45-117 Alkaline Phosph atase [facility] ([facility]) albumin 4.5 gm/dL 3.2-5.2 Albumin [facility] ([facility]) albumin/globulin ratio Albumin/globu maría Ratio [facility]INK[facility] ([facility]) ID Date Data Source [id number] 03/27/2020 11:50:00 AM EST [facility] ([facility]) Name Value Range Interpretation Code Description Data Amy rce(s) Supporting Document(s) red blood count 5.29 10 4.30-6.10 Red Blood Count ATHE NA ([facility]) white blood count 6.2 10 4.0-10.0 White Blood Count [facility] ([facility]) mean corpuscular volume 79.2 fL 80.0-96.0 Below low normal Mean Corpuscular Volume [facility] ([facility]) hemoglobin 14.5 g/dL 13.5-17.5 Hemoglobin [facility] ([facility]) hematocrit 41.9 % 42.0-52.0 Below low normal Hematocrit [facility] ( [facility]) mean corpuscular HGB conc 34.6 g/dL 32.0-36.5 Mean Corpu scular HGB Conc [facility] ([facility]) red cell distribution width 13.6 % 11.5-14.5 Red Cell Distribution Width [facility] ([facility]) mean corpuscular hemoglobin 27.4 pg 27.0-33.0 Mean Cor puscular Hemoglobin [facility] ([facility]) platelet count, automated 135 10 150-450 Below low va l Platelet Count, Automated [facility] ([facility]) neutrophils % 70.7 % 36.0-66.0 Above high normal Neutrophils % A THENA ([facility]) eos % 3.4 % 0.0-3.0 Above high normal Eos % [place] ([facility]) lymph % 19.8 % 24.0-44.0 Below low normal Lymph % [place] ( [facility]) mono % 4.4 % 0.0-5.0 [place] % [place] ([facility]) nucleated red blood cell % 0.0 % 0-0 Nucleated Red Blood Cell % [facility] ([facility]) baso % 0.6 % 0.0-1.0 Baso % [place] ([facility]) immature granulocyte % 1.1 % 0-3.0 Immature Gran ulocyte % [place] ([facility]) neutrophils # 4.4 10 1.5-8.5 Neutrophils # [facility]INK[facility] ( [facility]) mono # 0.3 10 0.0-0.8 [place] # PNIKY ([facility]) lymph # 1.2 10 1.5-5.0 Below low normal Lymph # [facility]INK[facility] ( [facility]) baso # 0.0 10 0.0-0.2 Baso # [facility] ([facility]) eos # 0.2 10 0.0-0.5 Eos # [facility] ([facility]) ID Date Data Source [id number] 03/27/2020 11:50:00 AM EST [place] ([facility]) Name Value Range Interpretation Code Description Data Amy rce(s) Supporting Document(s) glucose, fasting 89 mg/dL 70-100 Glucose, Fasting AT [facility] ([facility]) glomerular filtration rate > 60.0 >60 Glomerula r Filtration Rate [facility] ([facility]) creatinine for GFR 0.90 mg/dL 0.70-1.30 Creatinine for GF R [facility] ([facility]) blood urea nitrogen 11 mg/dL 7-18 Blood Urea Nitro gen [facility] ([facility]) sodium level 140 mEq/L 136-145 Sodium Level PINKY (No [facility]) chloride level 107 mEq/L 98-107 Chloride Level [facility] ([facility]) carbon dioxide level 26 mEq/L 21-32 Carbon Dioxide Level [facility] ([facility]) potassium serum 3.7 mEq/L 3.5-5.1 Potassium Serum ATHE ([facility]) calcium level 8.8 mg/dL 8.5-10.1 Calcium Level [facility] ( [facility]) AST/SGOT 15 U/L 7-37 AST/SGOT [facility] ([facility]) anion gap 7 mEq/L 8-16 Below low normal Anion Gap [facility] ( [facility]) ALT/SGPT 22 U/L 12-78 ALT/SGPT [facility] ([facility]) alkaline phosphatase 48 U/L 45-117 Alkaline Phosph atase [facility] ([facility]) bilirubin,total 0.7 mg/dL 0.2-1.0 Bilirubin,total ATHE ([facility]) total protein 7.1 gm/dL 6.4-8.2 Total Protein [facility] ( [facility]) albumin/globulin ratio Albumin/globu maría Ratio PINKY ([facility]) albumin 4.5 gm/dL 3.2-5.2 Albumin PINKY ([facility]) ID Date Data Source [id number] 03/27/2020 11:50:00 AM EST PINKY ([facility]) Name Value Range Interpretation Code Description Data Amy rce(s) Supporting Document(s) red blood count 5.29 10 4.30-6.10 Red Blood Count ATHE NA ([facility]) white blood count 6.2 10 4.0-10.0 White Blood Count PINKY ([facility]) hemoglobin 14.5 g/dL 13.5-17.5 Hemoglobin PINKY ([facility]) hematocrit 41.9 % 42.0-52.0 Below low normal Hematocrit PINKY ( [facility]) mean corpuscular volume 79.2 fL 80.0-96.0 Below low normal Mean Corpuscular Volume PINKY ([facility]) mean corpuscular hemoglobin 27.4 pg 27.0-33.0 Mean Cor puscular Hemoglobin PINKY ([facility]) mean corpuscular HGB conc 34.6 g/dL 32.0-36.5 Mean Corpu scular HGB Conc PINKY ([facility]) platelet count, automated 135 10 150-450 Below low va l Platelet Count, Automated [place] ([facility]) red cell distribution width 13.6 % 11.5-14.5 Red Cell Distribution Width PINKY ([facility]) neutrophils % 70.7 % 36.0-66.0 Above high normal Neutrophils % A THENA ([facility]) lymph % 19.8 % 24.0-44.0 Below low normal Lymph % PINKY ( [facility]) mono % 4.4 % 0.0-5.0 [place] % PINKY ([facility]) eos % 3.4 % 0.0-3.0 Above high normal Eos % PINKY ([facility]) immature granulocyte % 1.1 % 0-3.0 Immature Gran ulocyte % PINKY ([facility]) baso % 0.6 % 0.0-1.0 Baso % PINKY ([facility]) nucleated red blood cell % 0.0 % 0-0 Nucleated Red Blood Cell % PINKY ([facility]) lymph # 1.2 10 1.5-5.0 Below low normal Lymph # PINKY ( [facility]) neutrophils # 4.4 10 1.5-8.5 Neutrophils # PINKY ( [facility]) mono # 0.3 10 0.0-0.8 [place] # PINKY ([facility]) eos # 0.2 10 0.0-0.5 Eos # PINKY ([facility]) baso # 0.0 10 0.0-0.2 Baso # PINKY ([facility]) ID Date Data Source [id number] 03/27/2020 11:50:00 AM EST PINKY ([facility]) Name Value Range Interpretation Code Description Data Amy rce(s) Supporting Document(s) blood urea nitrogen 11 mg/dL 7-18 Blood Urea Nitro gen PINKY ([facility]) glucose, fasting 89 mg/dL 70-100 Glucose, Fasting AT [facility] ([facility]) glomerular filtration rate > 60.0 >60 Glomerula r Filtration Rate PINKY ([facility]) creatinine for GFR 0.90 mg/dL 0.70-1.30 Creatinine for GF R PINKY ([facility]) chloride level 107 mEq/L 98-107 Chloride Level PINKY ([facility]) sodium level 140 mEq/L 136-145 Sodium Level PINKY ([facility]) carbon dioxide level 26 mEq/L 21-32 Carbon Dioxide Level PINKY ([facility]) potassium serum 3.7 mEq/L 3.5-5.1 Potassium Serum ATHE ([facility]) AST/SGOT 15 U/L 7-37 AST/SGOT PINKY ([facility]) calcium level 8.8 mg/dL 8.5-10.1 Calcium Level PINKY ( [facility]) anion gap 7 mEq/L 8-16 Below low normal Anion Gap PINKY ( [facility]) alkaline phosphatase 48 U/L 45-117 Alkaline Phosph atase PINKY ([facility]) bilirubin,total 0.7 mg/dL 0.2-1.0 Bilirubin,total ATHE ([facility]) ALT/SGPT 22 U/L 12-78 ALT/SGPT [facility]INK[facility] ([facility]) total protein 7.1 gm/dL 6.4-8.2 Total Protein PINKY ( [facility]) albumin/globulin ratio Albumin/globu maría Ratio PINKY ([facility]) albumin 4.5 gm/dL 3.2-5.2 Albumin [facility] ([facility]) ID Date Data Source [id number] 03/27/2020 11:50:00 AM EST PINKY ([facility]) Name Value Range Interpretation Code Description Data Amy rce(s) Supporting Document(s) white blood count 6.2 10 4.0-10.0 White Blood Count PINKY ([facility]) hematocrit 41.9 % 42.0-52.0 Below low normal Hematocrit PINKY ( [facility]) red blood count 5.29 10 4.30-6.10 Red Blood Count ATHE ([facility]) hemoglobin 14.5 g/dL 13.5-17.5 Hemoglobin PINKY ([facility]) mean corpuscular hemoglobin 27.4 pg 27.0-33.0 Mean Cor puscular Hemoglobin PINKY ([facility]) mean corpuscular volume 79.2 fL 80.0-96.0 Below low normal Mean Corpuscular Volume PINKY ([facility]) mean corpuscular HGB conc 34.6 g/dL 32.0-36.5 Mean Corpu scular HGB Conc PINKY ([facility]) neutrophils % 70.7 % 36.0-66.0 Above high normal Neutrophils % A THENA ([facility]) platelet count, automated 135 10 150-450 Below low va l Platelet Count, Automated [place] ([facility]) red cell distribution width 13.6 % 11.5-14.5 Red Cell Distribution Width PINKY ([facility]) eos % 3.4 % 0.0-3.0 Above high normal Eos % PINKY ([facility]) lymph % 19.8 % 24.0-44.0 Below low normal Lymph % PINKY ( [facility]) mono % 4.4 % 0.0-5.0 [place] % PINKY ([facility]) immature granulocyte % 1.1 % 0-3.0 Immature Gran ulocyte % PINKY ([facility]) baso % 0.6 % 0.0-1.0 Baso % PINKY ([facility]) nucleated red blood cell % 0.0 % 0-0 Nucleated Red Blood Cell % PINKY ([facility]) neutrophils # 4.4 10 1.5-8.5 Neutrophils # PINKY ( [facility]) mono # 0.3 10 0.0-0.8 [place] # PINKY ([facility]) lymph # 1.2 10 1.5-5.0 Below low normal Lymph # PINKY ( [facility]) eos # 0.2 10 0.0-0.5 Eos # PINKY ([facility]) baso # 0.0 10 0.0-0.2 Baso # PINKY ([facility]) ID Date Data Source [id number] 03/11/2020 11:00:00 AM EST [place] ([facility]) Name Value Range Interpretation Code Description Data Amy rce(s) Supporting Document(s) white blood count 12.0 10 4.0-10.0 Above high normal White Blood Count PINKY ([facility]) red blood count 6.17 10 4.30-6.10 Above high normal Red Blood Cou nt [place] ([facility]) hemoglobin 16.6 g/dL 13.5-17.5 Hemoglobin [place] ([facility]) hematocrit 47.9 % 42.0-52.0 Hematocrit [place] ([facility]) mean corpuscular hemoglobin 26.9 pg 27.0-33.0 Below low nor mal Mean Corpuscular Hemoglobin PINKY ([facility]) mean corpuscular volume 77.6 fL 80.0-96.0 Below low normal Mean Corpuscular Volume PINKY ([facility]) platelet count, automated 141 10 150-450 Below low va l Platelet Count, Automated PINK[facility] ([facility]) mean corpuscular HGB conc 34.7 g/dL 32.0-36.5 Mean Corpu scular HGB Conc [place] ([facility]) red cell distribution width 13.2 % 11.5-14.5 Red Cell Distribution Width PINKY ([facility]) lymph % 5.8 % 24.0-44.0 Below low normal Lymph % PINKY ( [facility]) mono % 0.6 % 0.0-5.0 [place] % PINKY ([facility]) neutrophils % 92.6 % 36.0-66.0 Above high normal Neutrophils % A THENA ([facility]) eos % 0.1 % 0.0-3.0 Eos % PINKY ([facility]) baso % 0.2 % 0.0-1.0 Baso % PINK[facility] ([facility]) nucleated red blood cell % 0.0 % 0-0 Nucleated Red Blood Cell % PINKY ([facility]) immature granulocyte % 0.7 % 0-3.0 Immature Gran ulocyte % PINKY ([facility]) mono # 0.1 10 0.0-0.8 [place] # PINKY ([facility]) lymph # 0.7 10 1.5-5.0 Below low normal Lymph # [place] ( [facility]) neutrophils # 11.1 10 1.5-8.5 Above high normal Neutrophils # A THENA ([facility]) eos # 0.0 10 0.0-0.5 Eos # PINKY ([facility]) baso # 0.0 10 0.0-0.2 Baso # PINKY ([facility]) ID Date Data Source [id number] 03/11/2020 11:00:00 AM EST PINKY ([facility]) Name Value Range Interpretation Code Description Data Amy rce(s) Supporting Document(s) glucose, fasting 137 mg/dL 70-100 Above high normal Glucose, Fas ting PINKY ([facility]) blood urea nitrogen 16 mg/dL 7-18 Blood Urea Nitro gen PINKY ([facility]) glomerular filtration rate > 60.0 >60 Glomerula r Filtration Rate PINKY ([facility]) creatinine for GFR 0.99 mg/dL 0.70-1.30 Creatinine for GF R PINKY ([facility]) potassium serum 4.1 mEq/L 3.5-5.1 Potassium Serum ATHE NA ([facility]) carbon dioxide level 22 mEq/L 21-32 Carbon Dioxide Level PINKY ([facility]) sodium level 137 mEq/L 136-145 Sodium Level PINKY ([facility]) chloride level 107 mEq/L 98-107 Chloride Level PINKY ([facility]) anion gap 8 mEq/L 8-16 Anion Gap PINKY ([facility]) calcium level 9.6 mg/dL 8.5-10.1 Calcium Level PINKY ( [facility]) ALT/SGPT 15 U/L 12-78 ALT/SGPT PINK[facility] ([facility]) AST/SGOT 11 U/L 7-37 AST/SGOT PINKY ([facility]) alkaline phosphatase 53 U/L 45-117 Alkaline Phosph atase PINKY ([facility]) albumin 5.4 gm/dL 3.2-5.2 Above high normal Albumin PINKY ([facility]) bilirubin,total 1.2 mg/dL 0.2-1.0 Above high normal Bilirubin,tot al PINKY ([facility]) total protein 8.4 gm/dL 6.4-8.2 Above high normal Total Protein A THENA ([facility]) albumin/globulin ratio Albumin/globu maría Ratio PINKY ([facility]) ID Date Data Source [id number] 03/11/2020 11:00:00 AM EST PINKY ([facility]) Name Value Range Interpretation Code Description Data Amy rce(s) Supporting Document(s) red blood count 6.17 10 4.30-6.10 Above high normal Red Blood Cou nt PINKY ([facility]) hemoglobin 16.6 g/dL 13.5-17.5 Hemoglobin PINKY ([facility]) white blood count 12.0 10 4.0-10.0 Above high normal White Blood Count PINKY ([facility]) mean corpuscular hemoglobin 26.9 pg 27.0-33.0 Below low nor mal Mean Corpuscular Hemoglobin PINKY ([facility]) hematocrit 47.9 % 42.0-52.0 Hematocrit PINKY ([facility]) mean corpuscular volume 77.6 fL 80.0-96.0 Below low normal Mean Corpuscular Volume PINKY ([facility]) mean corpuscular HGB conc 34.7 g/dL 32.0-36.5 Mean Corpu scular HGB Conc PINKY ([facility]) platelet count, automated 141 10 150-450 Below low va l Platelet Count, Automated [facility] ([facility]) neutrophils % 92.6 % 36.0-66.0 Above high normal Neutrophils % A [facility] ([facility]) red cell distribution width 13.2 % 11.5-14.5 Red Cell Distribution Width PINKY ([facility]) eos % 0.1 % 0.0-3.0 Eos % PINKY ([facility]) lymph % 5.8 % 24.0-44.0 Below low normal Lymph % PINKY ( [facility]) mono % 0.6 % 0.0-5.0 [place] % PINKY ([facility]) baso % 0.2 % 0.0-1.0 Baso % PINKY ([facility]) immature granulocyte % 0.7 % 0-3.0 Immature Gran ulocyte % PINKY ([facility]) nucleated red blood cell % 0.0 % 0-0 Nucleated Red Blood Cell % PINKY ([facility]) neutrophils # 11.1 10 1.5-8.5 Above high normal Neutrophils # A THENA ([facility]) mono # 0.1 10 0.0-0.8 [place] # PINKY ([facility]) lymph # 0.7 10 1.5-5.0 Below low normal Lymph # PINKY ( [facility]) baso # 0.0 10 0.0-0.2 Baso # PINKY ([facility]) eos # 0.0 10 0.0-0.5 Eos # PINKY ([facility]) ID Date Data Source [id number] 03/11/2020 11:00:00 AM EST PINKY ([facility]) Name Value Range Interpretation Code Description Data Amy rce(s) Supporting Document(s) glucose, fasting 137 mg/dL 70-100 Above high normal Glucose, Fas ting PINKY ([facility]) blood urea nitrogen 16 mg/dL 7-18 Blood Urea Nitro gen PINKY ([facility]) sodium level 137 mEq/L 136-145 Sodium Level PINKY (No [facility]) creatinine for GFR 0.99 mg/dL 0.70-1.30 Creatinine for GF R PINKY ([facility]) glomerular filtration rate > 60.0 >60 Glomerula r Filtration Rate PINKY ([facility]) potassium serum 4.1 mEq/L 3.5-5.1 Potassium Serum ATHE NA ([facility]) chloride level 107 mEq/L 98-107 Chloride Level PINKY ([facility]) carbon dioxide level 22 mEq/L 21-32 Carbon Dioxide Level PINKY ([facility]) calcium level 9.6 mg/dL 8.5-10.1 Calcium Level PINKY ( [facility]) anion gap 8 mEq/L 8-16 Anion Gap PINK[facility] ([facility]) AST/SGOT 11 U/L 7-37 AST/SGOT P[facility] ([facility]) ALT/SGPT 15 U/L 12-78 ALT/SGPT PINKY ([facility]) alkaline phosphatase 53 U/L 45-117 Alkaline Phosph atase PINKY ([facility]) bilirubin,total 1.2 mg/dL 0.2-1.0 Above high normal Bilirubin,tot al PINKY ([facility]) albumin 5.4 gm/dL 3.2-5.2 Above high normal Albumin PINKY ([facility]) total protein 8.4 gm/dL 6.4-8.2 Above high normal Total Protein A THENA ([facility]) albumin/globulin ratio Albumin/globu maría Ratio PINKY ([facility]) ID Date Data Source [id number] 03/11/2020 11:00:00 AM EST PINKY ([facility]) Name Value Range Interpretation Code Description Data Amy rce(s) Supporting Document(s) white blood count 12.0 10 4.0-10.0 Above high normal White Blood Count [place] ([facility]) red blood count 6.17 10 4.30-6.10 Above high normal Red Blood Cou nt PINKY ([facility]) hemoglobin 16.6 g/dL 13.5-17.5 Hemoglobin PINK[facility] ([facility]) mean corpuscular volume 77.6 fL 80.0-96.0 Below low normal Mean Corpuscular Volume PINKY ([facility]) hematocrit 47.9 % 42.0-52.0 Hematocrit [place] ([facility]) mean corpuscular hemoglobin 26.9 pg 27.0-33.0 Below low nor mal Mean Corpuscular Hemoglobin [place] ([facility]) mean corpuscular HGB conc 34.7 g/dL 32.0-36.5 Mean Corpu scular HGB Conc [place] ([facility]) red cell distribution width 13.2 % 11.5-14.5 Red Cell Distribution Width [place] ([facility]) platelet count, automated 141 10 150-450 Below low va l Platelet Count, Automated [facility]) lymph % 5.8 % 24.0-44.0 Below low normal Lymph % [place] ( [facility]) eos % 0.1 % 0.0-3.0 Eos % [place] ([facility]) neutrophils % 92.6 % 36.0-66.0 Above high normal Neutrophils % [facility] ([facility]) mono % 0.6 % 0.0-5.0 [place] % [place] ([facility]) immature granulocyte % 0.7 % 0-3.0 Immature Gran ulocyte % PINKY ([facility]) nucleated red blood cell % 0.0 % 0-0 Nucleated Red Blood Cell % [place] ([facility]) baso % 0.2 % 0.0-1.0 Baso % [facility] ([facility]) neutrophils # 11.1 10 1.5-8.5 Above high normal Neutrophils # A [facility] ([facility]) lymph # 0.7 10 1.5-5.0 Below low normal Lymph # [place]INKY ( [facility]) eos # 0.0 10 0.0-0.5 Eos # [facility] ([facility]) baso # 0.0 10 0.0-0.2 Baso # [facility] ([facility]) mono # 0.1 10 0.0-0.8 [place] # [facility]INKY ([facility]) ID Date Data Source [id number] 03/11/2020 11:00:00 AM EST PINKY ([facility]) Name Value Range Interpretation Code Description Data Amy rce(s) Supporting Document(s) glucose, fasting 137 mg/dL 70-100 Above high normal Glucose, Fas ting [facility]INK[facility] ([facility]) creatinine for GFR 0.99 mg/dL 0.70-1.30 Creatinine for GF R [place]INK[facility] ([facility]) blood urea nitrogen 16 mg/dL 7-18 Blood Urea Nitro gen PINKY ([facility]) glomerular filtration rate > 60.0 >60 Glomerula r Filtration Rate PINKY ([facility]) sodium level 137 mEq/L 136-145 Sodium Level PINKY (No [facility]) chloride level 107 mEq/L 98-107 Chloride Level [place] ([facility]) potassium serum 4.1 mEq/L 3.5-5.1 Potassium Serum ATHE NA ([facility]) anion gap 8 mEq/L 8-16 Anion Gap PINK[facility] ([facility]) carbon dioxide level 22 mEq/L 21-32 Carbon Dioxide Level PINKY ([facility]) calcium level 9.6 mg/dL 8.5-10.1 Calcium Level [place]INK[place] ( [facility]) alkaline phosphatase 53 U/L 45-117 Alkaline Phosph atase [facility] ([facility]) ALT/SGPT 15 U/L 12-78 ALT/SGPT [facility] ([facility]) AST/SGOT 11 U/L 7-37 AST/SGOT [facility] ([facility]) total protein 8.4 gm/dL 6.4-8.2 Above high normal Total Protein A [place] ([facility]) bilirubin,total 1.2 mg/dL 0.2-1.0 Above high normal Bilirubin,tot al [place] ([facility]) albumin/globulin ratio Albumin/globu maría Ratio PINKY ([facility]) albumin 5.4 gm/dL 3.2-5.2 Above high normal Albumin [place] ([facility]) ID Date Data Source [id number] 03/11/2020 11:00:00 AM EST [place] ([facility]) Name Value Range Interpretation Code Description Data Amy rce(s) Supporting Document(s) white blood count 12.0 10 4.0-10.0 Above high normal White Blood Count [place] ([facility]) red blood count 6.17 10 4.30-6.10 Above high normal Red Blood Cou nt [place] ([facility]) hematocrit 47.9 % 42.0-52.0 Hematocrit [place] ([facility]) hemoglobin 16.6 g/dL 13.5-17.5 Hemoglobin [place] ([facility]) mean corpuscular volume 77.6 fL 80.0-96.0 Below low normal Mean Corpuscular Volume [place] ([facility]) red cell distribution width 13.2 % 11.5-14.5 Red Cell Distribution Width [place] ([facility]) mean corpuscular HGB conc 34.7 g/dL 32.0-36.5 Mean Corpu scular HGB Conc [place] ([facility]) mean corpuscular hemoglobin 26.9 pg 27.0-33.0 Below low nor mal Mean Corpuscular Hemoglobin [place] ([facility]) neutrophils % 92.6 % 36.0-66.0 Above high normal Neutrophils % A [facility] ([facility]) platelet count, automated 141 10 150-450 Below low va l Platelet Count, Automated [place] ([facility]) lymph % 5.8 % 24.0-44.0 Below low normal Lymph % [place] ( [facility]) eos % 0.1 % 0.0-3.0 Eos % [facility] ([facility]) mono % 0.6 % 0.0-5.0 [place] % [facility] ([facility]) baso % 0.2 % 0.0-1.0 Baso % [facility] ([facility]) neutrophils # 11.1 10 1.5-8.5 Above high normal Neutrophils # A [place] ([facility]) immature granulocyte % 0.7 % 0-3.0 Immature Gran ulocyte % [place] ([facility]) nucleated red blood cell % 0.0 % 0-0 Nucleated Red Blood Cell % [place] ([facility]) eos # 0.0 10 0.0-0.5 Eos # [place] ([facility]) lymph # 0.7 10 1.5-5.0 Below low normal Lymph # [place] ( [facility]) baso # 0.0 10 0.0-0.2 Baso # [place] ([facility]) mono # 0.1 10 0.0-0.8 [place] # [facility] ([facility]) ID Date Data Source [id number] 03/11/2020 11:00:00 AM EST [place] ([facility]) Name Value Range Interpretation Code Description Data Amy rce(s) Supporting Document(s) glucose, fasting 137 mg/dL 70-100 Above high normal Glucose, Fas ting [place] ([facility]) creatinine for GFR 0.99 mg/dL 0.70-1.30 Creatinine for GF R [place] ([facility]) blood urea nitrogen 16 mg/dL 7-18 Blood Urea Nitro gen [place] ([facility]) glomerular filtration rate > 60.0 >60 Glomerula r Filtration Rate [place] ([facility]) sodium level 137 mEq/L 136-145 Sodium Level [place] (No [facility]) chloride level 107 mEq/L 98-107 Chloride Level [place] ([facility]) carbon dioxide level 22 mEq/L 21-32 Carbon Dioxide Level [place] ([facility]) potassium serum 4.1 mEq/L 3.5-5.1 Potassium Serum ATHE NA ([facility]) anion gap 8 mEq/L 8-16 Anion Gap [place] ([facility]) AST/SGOT 11 U/L 7-37 AST/SGOT [place] ([facility]) calcium level 9.6 mg/dL 8.5-10.1 Calcium Level [place] ( [facility]) alkaline phosphatase 53 U/L 45-117 Alkaline Phosph atase [place] ([facility]) ALT/SGPT 15 U/L 12-78 ALT/SGPT [place] ([facility]) bilirubin,total 1.2 mg/dL 0.2-1.0 Above high normal Bilirubin,tot al [place] ([facility]) albumin 5.4 gm/dL 3.2-5.2 Above high normal Albumin [place] ([facility]) total protein 8.4 gm/dL 6.4-8.2 Above high normal Total Protein A [place] ([facility]) albumin/globulin ratio Albumin/globu maría Ratio [place] ([facility]) ID Date Data Source [id number] 03/11/2020 11:00:00 AM EST [place] ([facility]) Name Value Range Interpretation Code Description Data Amy rce(s) Supporting Document(s) red blood count 6.17 10 4.30-6.10 Above high normal Red Blood Cou nt [place] ([facility]) white blood count 12.0 10 4.0-10.0 Above high normal White Blood Count [place] ([facility]) hematocrit 47.9 % 42.0-52.0 Hematocrit [place] ([facility]) hemoglobin 16.6 g/dL 13.5-17.5 Hemoglobin [place] ([facility]) mean corpuscular hemoglobin 26.9 pg 27.0-33.0 Below low nor mal Mean Corpuscular Hemoglobin [place] ([facility]) mean corpuscular volume 77.6 fL 80.0-96.0 Below low normal Mean Corpuscular Volume [place] ([facility]) mean corpuscular HGB conc 34.7 g/dL 32.0-36.5 Mean Corpu scular HGB Conc [place] ([facility]) red cell distribution width 13.2 % 11.5-14.5 Red Cell Distribution Width [place] ([facility]) platelet count, automated 141 10 150-450 Below low va l Platelet Count, Automated [place] ([facility]) neutrophils % 92.6 % 36.0-66.0 Above high normal Neutrophils % A [place] ([facility]) lymph % 5.8 % 24.0-44.0 Below low normal Lymph % [place] ( [facility]) mono % 0.6 % 0.0-5.0 [place] % [facility] ([facility]) eos % 0.1 % 0.0-3.0 Eos % [place] ([facility]) baso % 0.2 % 0.0-1.0 Baso % [place] ([facility]) neutrophils # 11.1 10 1.5-8.5 Above high normal Neutrophils # A [place] ([facility]) nucleated red blood cell % 0.0 % 0-0 Nucleated Red Blood Cell % [place] ([facility]) immature granulocyte % 0.7 % 0-3.0 Immature Gran ulocyte % [place] ([facility]) lymph # 0.7 10 1.5-5.0 Below low normal Lymph # [place] ( [facility]) eos # 0.0 10 0.0-0.5 Eos # [place] ([facility]) baso # 0.0 10 0.0-0.2 Baso # [place] ([facility]) mono # 0.1 10 0.0-0.8 [place] # [place] ([facility]) ID Date Data Source [id number] 03/11/2020 11:00:00 AM EST [place] ([facility]) Name Value Range Interpretation Code Description Data Amy rce(s) Supporting Document(s) glucose, fasting 137 mg/dL 70-100 Above high normal Glucose, Fas ting [place] ([facility]) glomerular filtration rate > 60.0 >60 Glomerula r Filtration Rate [place] ([facility]) blood urea nitrogen 16 mg/dL 7-18 Blood Urea Nitro gen [facility]Y ([facility]) creatinine for GFR 0.99 mg/dL 0.70-1.30 Creatinine for GF R PINKY ([facility]) chloride level 107 mEq/L 98-107 Chloride Level PINKY ([facility]) potassium serum 4.1 mEq/L 3.5-5.1 Potassium Serum ATHE NA ([facility]) sodium level 137 mEq/L 136-145 Sodium Level PINKY ([facility]) calcium level 9.6 mg/dL 8.5-10.1 Calcium Level PINKY ( [facility]) anion gap 8 mEq/L 8-16 Anion Gap PINKY ([facility]) carbon dioxide level 22 mEq/L 21-32 Carbon Dioxide Level PINKY ([facility]) AST/SGOT 11 U/L 7-37 AST/SGOT PINKY ([facility]) bilirubin,total 1.2 mg/dL 0.2-1.0 Above high normal Bilirubin,tot al PINKY ([facility]) alkaline phosphatase 53 U/L 45-117 Alkaline Phosph atase PINKY ([facility]) ALT/SGPT 15 U/L 12-78 ALT/SGPT PINKY ([facility]) albumin/globulin ratio Albumin/globu maría Ratio PINKY ([facility]) albumin 5.4 gm/dL 3.2-5.2 Above high normal Albumin PINYK ([facility]) total protein 8.4 gm/dL 6.4-8.2 Above high normal Total Protein A THENA ([facility]) ID Date Data Source [id number] 03/11/2020 11:00:00 AM EST PINKY ([facility]) Name Value Range Interpretation Code Description Data Amy rce(s) Supporting Document(s) red blood count 6.17 10 4.30-6.10 Above high normal Red Blood Cou nt [place] ([facility]) hemoglobin 16.6 g/dL 13.5-17.5 Hemoglobin PINKY ([facility]) white blood count 12.0 10 4.0-10.0 Above high normal White Blood Count PINKY ([facility]) mean corpuscular hemoglobin 26.9 pg 27.0-33.0 Below low nor mal Mean Corpuscular Hemoglobin PINKY ([facility]) hematocrit 47.9 % 42.0-52.0 Hematocrit PINKY ([facility]) mean corpuscular volume 77.6 fL 80.0-96.0 Below low normal Mean Corpuscular Volume PINKY ([facility]) mean corpuscular HGB conc 34.7 g/dL 32.0-36.5 Mean Corpu scular HGB Conc PINKY ([facility]) neutrophils % 92.6 % 36.0-66.0 Above high normal Neutrophils % A THENA ([facility]) platelet count, automated 141 10 150-450 Below low va l Platelet Count, Automated PNIKY ([facility]) red cell distribution width 13.2 % 11.5-14.5 Red Cell Distribution Width PINKY ([facility]) baso % 0.2 % 0.0-1.0 Baso % PINKY ([facility]) eos % 0.1 % 0.0-3.0 Eos % PINKY ([facility]) lymph % 5.8 % 24.0-44.0 Below low normal Lymph % PINKY ( [facility]) mono % 0.6 % 0.0-5.0 [place] % PINKY ([facility]) lymph # 0.7 10 1.5-5.0 Below low normal Lymph # PINKY ( [facility]) neutrophils # 11.1 10 1.5-8.5 Above high normal Neutrophils # A THENA ([facility]) immature granulocyte % 0.7 % 0-3.0 Immature Gran ulocyte % PINKY ([facility]) nucleated red blood cell % 0.0 % 0-0 Nucleated Red Blood Cell % PINKY ([facility]) mono # 0.1 10 0.0-0.8 [place] # PINKY ([facility]) baso # 0.0 10 0.0-0.2 Baso # PINKY ([facility]) eos # 0.0 10 0.0-0.5 Eos # PINKY ([facility]) ID Date Data Source [id number] 03/11/2020 11:00:00 AM EST PINKY ([facility]) Name Value Range Interpretation Code Description Data Amy rce(s) Supporting Document(s) glucose, fasting 137 mg/dL 70-100 Above high normal Glucose, Fas ting PINKY ([facility]) glomerular filtration rate > 60.0 >60 Glomerula r Filtration Rate PINKY ([facility]) blood urea nitrogen 16 mg/dL 7-18 Blood Urea Nitro gen PINKY ([facility]) creatinine for GFR 0.99 mg/dL 0.70-1.30 Creatinine for GF R PINKY ([facility]) potassium serum 4.1 mEq/L 3.5-5.1 Potassium Serum ATHE NA ([facility]) carbon dioxide level 22 mEq/L 21-32 Carbon Dioxide Level PINKY ([facility]) chloride level 107 mEq/L 98-107 Chloride Level PINKY ([facility]) sodium level 137 mEq/L 136-145 Sodium Level PINKY ([facility]) ALT/SGPT 15 U/L 12-78 ALT/SGPT PINKY ([facility]) anion gap 8 mEq/L 8-16 Anion Gap PINKY ([facility]) AST/SGOT 11 U/L 7-37 AST/SGOT PINKY ([facility]) calcium level 9.6 mg/dL 8.5-10.1 Calcium Level PINKY ( [facility]) total protein 8.4 gm/dL 6.4-8.2 Above high normal Total Protein A THENA ([facility]) bilirubin,total 1.2 mg/dL 0.2-1.0 Above high normal Bilirubin,tot al PINKY ([facility]) alkaline phosphatase 53 U/L 45-117 Alkaline Phosph atase PINKY ([facility]) albumin 5.4 gm/dL 3.2-5.2 Above high normal Albumin PINKY ([facility]) albumin/globulin ratio Albumin/globu maría Ratio PINKY ([facility]) ID Date Data Source [id number] 03/11/2020 11:00:00 AM EST [place] ([facility]) Name Value Range Interpretation Code Description Data Amy rce(s) Supporting Document(s) red blood count 6.17 10 4.30-6.10 Above high normal Red Blood Cou nt PINKY ([facility]) white blood count 12.0 10 4.0-10.0 Above high normal White Blood Count PINKY ([facility]) hemoglobin 16.6 g/dL 13.5-17.5 Hemoglobin PINKY ([facility]) hematocrit 47.9 % 42.0-52.0 Hematocrit PINKY ([facility]) mean corpuscular volume 77.6 fL 80.0-96.0 Below low normal Mean Corpuscular Volume [place] ([facility]) mean corpuscular hemoglobin 26.9 pg 27.0-33.0 Below low nor mal Mean Corpuscular Hemoglobin PINKY ([facility]) red cell distribution width 13.2 % 11.5-14.5 Red Cell Distribution Width PINKY ([facility]) platelet count, automated 141 10 150-450 Below low va l Platelet Count, Automated PINKY ([facility]) mean corpuscular HGB conc 34.7 g/dL 32.0-36.5 Mean Corpu scular HGB Conc [place] ([facility]) lymph % 5.8 % 24.0-44.0 Below low normal Lymph % PINKY ( [facility]) neutrophils % 92.6 % 36.0-66.0 Above high normal Neutrophils % A [facility] ([facility]) eos % 0.1 % 0.0-3.0 Eos % PINKY ([facility]) mono % 0.6 % 0.0-5.0 [place] % PINKY ([facility]) nucleated red blood cell % 0.0 % 0-0 Nucleated Red Blood Cell % PINKY ([facility]) neutrophils # 11.1 10 1.5-8.5 Above high normal Neutrophils # A [facility] ([facility]) baso % 0.2 % 0.0-1.0 Baso % PINKY ([facility]) immature granulocyte % 0.7 % 0-3.0 Immature Gran ulocyte % PINKY ([facility]) mono # 0.1 10 0.0-0.8 [place] # PINKY ([facility]) eos # 0.0 10 0.0-0.5 Eos # PINKY ([facility]) lymph # 0.7 10 1.5-5.0 Below low normal Lymph # PINKY ( [facility]) baso # 0.0 10 0.0-0.2 Baso # PINKY ([facility]) ID Date Data Source [id number] 03/11/2020 11:00:00 AM EST [place] ([facility]) Name Value Range Interpretation Code Description Data Amy rce(s) Supporting Document(s) glucose, fasting 137 mg/dL 70-100 Above high normal Glucose, Fas ting PINKY ([facility]) blood urea nitrogen 16 mg/dL 7-18 Blood Urea Nitro gen PINKY ([facility]) sodium level 137 mEq/L 136-145 Sodium Level PINKY ([facility]) creatinine for GFR 0.99 mg/dL 0.70-1.30 Creatinine for GF R PINKY ([facility]) glomerular filtration rate > 60.0 >60 Glomerula r Filtration Rate PINKY ([facility]) potassium serum 4.1 mEq/L 3.5-5.1 Potassium Serum ATHE NA ([facility]) chloride level 107 mEq/L 98-107 Chloride Level PINKY ([facility]) carbon dioxide level 22 mEq/L 21-32 Carbon Dioxide Level PINKY ([facility]) anion gap 8 mEq/L 8-16 Anion Gap PINKY ([facility]) calcium level 9.6 mg/dL 8.5-10.1 Calcium Level PINKY ( [facility]) ALT/SGPT 15 U/L 12-78 ALT/SGPT PINKY ([facility]) alkaline phosphatase 53 U/L 45-117 Alkaline Phosph atase PINKY ([facility]) AST/SGOT 11 U/L 7-37 AST/SGOT PINKY ([facility]) bilirubin,total 1.2 mg/dL 0.2-1.0 Above high normal Bilirubin,tot al PINKY ([facility]) total protein 8.4 gm/dL 6.4-8.2 Above high normal Total Protein A [facility] ([facility]) albumin 5.4 gm/dL 3.2-5.2 Above high normal Albumin PINKY ([facility]) albumin/globulin ratio Albumin/globu maría Ratio [place] ([facility]) ID Date Data Source [id number] 03/11/2020 11:00:00 AM EST [place] ([facility]) Name Value Range Interpretation Code Description Data Amy rce(s) Supporting Document(s) white blood count 12.0 10 4.0-10.0 Above high normal White Blood Count [place] ([facility]) red blood count 6.17 10 4.30-6.10 Above high normal Red Blood Cou nt [place] ([facility]) hemoglobin 16.6 g/dL 13.5-17.5 Hemoglobin [place] ([facility]) hematocrit 47.9 % 42.0-52.0 Hematocrit [place] ([facility]) mean corpuscular HGB conc 34.7 g/dL 32.0-36.5 Mean Corpu scular HGB Conc [place] ([facility]) mean corpuscular volume 77.6 fL 80.0-96.0 Below low normal Mean Corpuscular Volume [place] ([facility]) mean corpuscular hemoglobin 26.9 pg 27.0-33.0 Below low nor mal Mean Corpuscular Hemoglobin PINKY ([facility]) neutrophils % 92.6 % 36.0-66.0 Above high normal Neutrophils % A [facility] ([facility]) platelet count, automated 141 10 150-450 Below low va l [facility], [facility] red cell distribution width 13.2 % 11.5-14.5 Red Cell [facility] lymph % 5.8 % 24.0-44.0 Below low normal Lymph % [facility]) baso % 0.2 % 0.0-1.0 Baso % PINKY ([facility]) eos % 0.1 % 0.0-3.0 Eos % PINKY ([facility]) mono % 0.6 % 0.0-5.0 [place] % PINKY ([facility]) immature granulocyte % 0.7 % 0-3.0 Immature Gran ulocyte % PINKY ([facility]) neutrophils # 11.1 10 1.5-8.5 Above high normal Neutrophils # A THENA ([facility]) nucleated red blood cell % 0.0 % 0-0 Nucleated Red Blood Cell % PINKY ([facility]) eos # 0.0 10 0.0-0.5 Eos # PINKY ([facility]) lymph # 0.7 10 1.5-5.0 Below low normal Lymph # PINKY ( [facility]) mono # 0.1 10 0.0-0.8 [place] # PINKY ([facility]) baso # 0.0 10 0.0-0.2 Baso # PINKY ([facility]) ID Date Data Source [id number] 03/11/2020 11:00:00 AM EST PINKY ([facility]) Name Value Range Interpretation Code Description Data Amy rce(s) Supporting Document(s) glucose, fasting 137 mg/dL 70-100 Above high normal Glucose, Fas ting PINKY ([facility]) creatinine for GFR 0.99 mg/dL 0.70-1.30 Creatinine for GF R PINKY ([facility]) blood urea nitrogen 16 mg/dL 7-18 Blood Urea Nitro gen PINKY ([facility]) glomerular filtration rate > 60.0 >60 Glomerula r Filtration Rate PINKY ([facility]) sodium level 137 mEq/L 136-145 Sodium Level PINKY (No [facility]) potassium serum 4.1 mEq/L 3.5-5.1 Potassium Serum ATHE NA ([facility]) carbon dioxide level 22 mEq/L 21-32 Carbon Dioxide Level PINKY ([facility]) chloride level 107 mEq/L 98-107 Chloride Level PINKY ([facility]) anion gap 8 mEq/L 8-16 Anion Gap PINKY ([facility]) alkaline phosphatase 53 U/L 45-117 Alkaline Phosph atase PINKY ([facility]) AST/SGOT 11 U/L 7-37 AST/SGOT PINKY ([facility]) ALT/SGPT 15 U/L 12-78 ALT/SGPT PINKY ([facility]) calcium level 9.6 mg/dL 8.5-10.1 Calcium Level PINKY ( [facility]) albumin 5.4 gm/dL 3.2-5.2 Above high normal Albumin PINKY ([facility]) bilirubin,total 1.2 mg/dL 0.2-1.0 Above high normal Bilirubin,tot al PINKY ([facility]) total protein 8.4 gm/dL 6.4-8.2 Above high normal Total Protein A THENA ([facility]) albumin/globulin ratio Albumin/globu maría Ratio PINKY ([facility]) ID Date Data Source [id number] 03/11/2020 11:00:00 AM EST [place] ([facility]) Name Value Range Interpretation Code Description Data Amy rce(s) Supporting Document(s) white blood count 12.0 10 4.0-10.0 Above high normal White Blood Count PINKY ([facility]) mean corpuscular volume 77.6 fL 80.0-96.0 Below low normal Mean Corpuscular Volume PINKY ([facility]) hemoglobin 16.6 g/dL 13.5-17.5 Hemoglobin PINKY ([facility]) red blood count 6.17 10 4.30-6.10 Above high normal Red Blood Cou nt PINKY ([facility]) hematocrit 47.9 % 42.0-52.0 Hematocrit PINKY ([facility]) mean corpuscular HGB conc 34.7 g/dL 32.0-36.5 Mean Corpu scular HGB Conc PINKY ([facility]) mean corpuscular hemoglobin 26.9 pg 27.0-33.0 Below low nor mal Mean Corpuscular Hemoglobin PINKY ([facility]) platelet count, automated 141 10 150-450 Below low va l Platelet Count, Automated PINKY ([facility]) red cell distribution width 13.2 % 11.5-14.5 Red Cell Distribution Width PINKY ([facility]) mono % 0.6 % 0.0-5.0 [place] % PINKY ([facility]) neutrophils % 92.6 % 36.0-66.0 Above high normal Neutrophils % A THENA ([facility]) lymph % 5.8 % 24.0-44.0 Below low normal Lymph % PINKY ( [facility]) immature granulocyte % 0.7 % 0-3.0 Immature Gran ulocyte % PINKY ([facility]) baso % 0.2 % 0.0-1.0 Baso % PINK[facility] ([facility]) eos % 0.1 % 0.0-3.0 Eos % PINKY ([facility]) nucleated red blood cell % 0.0 % 0-0 Nucleated Red Blood Cell % PINK[place] ([facility]) mono # 0.1 10 0.0-0.8 [place] # PINKY ([facility]) lymph # 0.7 10 1.5-5.0 Below low normal Lymph # PINKY ( [facility]) eos # 0.0 10 0.0-0.5 Eos # PINKY ([facility]) neutrophils # 11.1 10 1.5-8.5 Above high normal Neutrophils # A THENA ([facility]) baso # 0.0 10 0.0-0.2 Baso # PINKY ([facility]) ID Date Data Source [id number] 03/11/2020 11:00:00 AM EST PINKY ([facility]) Name Value Range Interpretation Code Description Data Amy rce(s) Supporting Document(s) glucose, fasting 137 mg/dL 70-100 Above high normal Glucose, Fas ting PINKY ([facility]) blood urea nitrogen 16 mg/dL 7-18 Blood Urea Nitro gen PINKY ([facility]) glomerular filtration rate > 60.0 >60 Glomerula r Filtration Rate PINKY ([facility]) creatinine for GFR 0.99 mg/dL 0.70-1.30 Creatinine for GF R PINKY ([facility]) sodium level 137 mEq/L 136-145 Sodium Level PINKY (No [facility]) potassium serum 4.1 mEq/L 3.5-5.1 Potassium Serum ATHE NA ([facility]) carbon dioxide level 22 mEq/L 21-32 Carbon Dioxide Level PINKY ([facility]) chloride level 107 mEq/L 98-107 Chloride Level PINKY ([facility]) anion gap 8 mEq/L 8-16 Anion Gap PINK[facility] ([facility]) AST/SGOT 11 U/L 7-37 AST/SGOT PINK[facility] ([facility]) calcium level 9.6 mg/dL 8.5-10.1 Calcium Level PINKY ( [facility]) ALT/SGPT 15 U/L 12-78 ALT/SGPT PINK[facility] ([facility]) total protein 8.4 gm/dL 6.4-8.2 Above high normal Total Protein A THENA ([facility]) albumin/globulin ratio Albumin/globu maría Ratio PINKY ([facility]) alkaline phosphatase 53 U/L 45-117 Alkaline Phosph atase PINKY ([facility]) bilirubin,total 1.2 mg/dL 0.2-1.0 Above high normal Bilirubin,tot al PINKY ([facility]) albumin 5.4 gm/dL 3.2-5.2 Above high normal Albumin PINKY ([facility]) ID Date Data Source [id number] 03/11/2020 11:00:00 AM EST PINKY ([facility]) Name Value Range Interpretation Code Description Data Amy rce(s) Supporting Document(s) hemoglobin 16.6 g/dL 13.5-17.5 Hemoglobin PINKY ([facility]) hematocrit 47.9 % 42.0-52.0 Hematocrit PINKY ([facility]) red blood count 6.17 10 4.30-6.10 Above high normal Red Blood Cou nt PINK[place] ([facility]) white blood count 12.0 10 4.0-10.0 Above high normal White Blood Count PINKY ([facility]) mean corpuscular volume 77.6 fL 80.0-96.0 Below low normal Mean Corpuscular Volume PINKY ([facility]) mean corpuscular hemoglobin 26.9 pg 27.0-33.0 Below low nor mal Mean Corpuscular Hemoglobin PINKY ([facility]) mean corpuscular HGB conc 34.7 g/dL 32.0-36.5 Mean Corpu scular HGB Conc PINKY ([facility]) neutrophils % 92.6 % 36.0-66.0 Above high normal Neutrophils % [facility] lymph % 5.8 % 24.0-44.0 Below low normal Lymph % PINK[place] ( [facility]) platelet count, automated 141 10 150-450 Below low va l Platelet Count, Automated PINK[place] ([facility]) red cell distribution width 13.2 % 11.5-14.5 Red Cell Distribution Width PINKY ([facility]) immature granulocyte % 0.7 % 0-3.0 Immature Gran ulocyte % PINK[facility] ([facility]) eos % 0.1 % 0.0-3.0 Eos % PINK[facility] ([facility]) baso % 0.2 % 0.0-1.0 Baso % PINK[facility] ([facility]) mono % 0.6 % 0.0-5.0 [place] % PINKY ([facility]) nucleated red blood cell % 0.0 % 0-0 Nucleated Red Blood Cell % P[facility] ([facility]) neutrophils # 11.1 10 1.5-8.5 Above high normal Neutrophils # A THE[place] ([facility]) eos # 0.0 10 0.0-0.5 Eos # PINKY ([facility]) lymph # 0.7 10 1.5-5.0 Below low normal Lymph # PINK[place] ( [facility]) mono # 0.1 10 0.0-0.8 [place] # PINKY ([facility]) baso # 0.0 10 0.0-0.2 Baso # PINKY ([facility]) ID Date Data Source [id number] 03/11/2020 11:00:00 AM EST PINKY ([facility]) Name Value Range Interpretation Code Description Data Aym rce(s) Supporting Document(s) glucose, fasting 137 mg/dL 70-100 Above high normal Glucose, Fas ting PINKY ([facility]) creatinine for GFR 0.99 mg/dL 0.70-1.30 Creatinine for GF R PINKY ([facility]) blood urea nitrogen 16 mg/dL 7-18 Blood Urea Nitro gen PINKY ([facility]) potassium serum 4.1 mEq/L 3.5-5.1 Potassium Serum ATHE NA ([facility]) glomerular filtration rate > 60.0 >60 Glomerula r Filtration Rate PINKY ([facility]) sodium level 137 mEq/L 136-145 Sodium Level PINKY (No [facility]) carbon dioxide level 22 mEq/L 21-32 Carbon Dioxide Level PINKY ([facility]) anion gap 8 mEq/L 8-16 Anion Gap PINK[facility] ([facility]) chloride level 107 mEq/L 98-107 Chloride Level [place] ([facility]) calcium level 9.6 mg/dL 8.5-10.1 Calcium Level PINKY ( [facility]) ALT/SGPT 15 U/L 12-78 ALT/SGPT P[facility] ([facility]) alkaline phosphatase 53 U/L 45-117 Alkaline Phosph atase PINKY ([facility]) AST/SGOT 11 U/L 7-37 AST/SGOT [facility] ([facility]) total protein 8.4 gm/dL 6.4-8.2 Above high normal Total Protein A [place] ([facility]) albumin 5.4 gm/dL 3.2-5.2 Above high normal Albumin [place] ([facility]) bilirubin,total 1.2 mg/dL 0.2-1.0 Above high normal Bilirubin,tot al PINK[place] ([facility]) albumin/globulin ratio Albumin/globu maría Ratio PINKY ([facility]) ID Date Data Source [id number] 03/11/2020 11:00:00 AM EST PINK[place] ([facility]) Name Value Range Interpretation Code Description Data Amy rce(s) Supporting Document(s) white blood count 12.0 10 4.0-10.0 Above high normal White Blood Count P[facility] ([facility]) red blood count 6.17 10 4.30-6.10 Above high normal Red Blood Cou nt [place] ([facility]) hemoglobin 16.6 g/dL 13.5-17.5 Hemoglobin [place] ([facility]) mean corpuscular HGB conc 34.7 g/dL 32.0-36.5 Mean Corpu scular HGB Conc PINK[facility] ([facility]) mean corpuscular hemoglobin 26.9 pg 27.0-33.0 Below low nor mal Mean Corpuscular Hemoglobin PINKY ([facility]) hematocrit 47.9 % 42.0-52.0 Hematocrit [place] ([facility]) mean corpuscular volume 77.6 fL 80.0-96.0 Below low normal Mean Corpuscular Volume PINK[place] ([facility]) platelet count, automated 141 10 150-450 Below low va l Platelet Count, Automated [place] ([facility]) neutrophils % 92.6 % 36.0-66.0 Above high normal Neutrophils % A [facility] ([facility]) red cell distribution width 13.2 % 11.5-14.5 Red Cell Distribution Width [facility] ([facility]) lymph % 5.8 % 24.0-44.0 Below low normal Lymph % [facility] ( [facility]) baso % 0.2 % 0.0-1.0 Baso % [facility] ([facility]) immature granulocyte % 0.7 % 0-3.0 Immature Gran ulocyte % [facility] ([facility]) mono % 0.6 % 0.0-5.0 [place] % PINKY ([facility]) eos % 0.1 % 0.0-3.0 Eos % [facility] ([facility]) eos # 0.0 10 0.0-0.5 Eos # PINK[facility] ([facility]) lymph # 0.7 10 1.5-5.0 Below low normal Lymph # [facility] ( [facility]) neutrophils # 11.1 10 1.5-8.5 Above high normal Neutrophils # A [facility] ([facility]) mono # 0.1 10 0.0-0.8 [place] # PINKY ([facility]) nucleated red blood cell % 0.0 % 0-0 Nucleated Red Blood Cell % [facility] ([facility]) baso # 0.0 10 0.0-0.2 Baso # [facility] ([facility]) ID Date Data Source [id number] 03/11/2020 11:00:00 AM EST [place] ([facility]) Name Value Range Interpretation Code Description Data Amy rce(s) Supporting Document(s) glucose, fasting 137 mg/dL 70-100 Above high normal Glucose, Fas ting [facility] ([facility]) glomerular filtration rate > 60.0 >60 Glomerula r Filtration Rate [facility] ([facility]) blood urea nitrogen 16 mg/dL 7-18 Blood Urea Nitro gen [facility] ([facility]) creatinine for GFR 0.99 mg/dL 0.70-1.30 Creatinine for GF R PINK[facility] ([facility]) sodium level 137 mEq/L 136-145 Sodium Level PINKY (No [facility]) potassium serum 4.1 mEq/L 3.5-5.1 Potassium Serum ATHE NA ([facility]) chloride level 107 mEq/L 98-107 Chloride Level PINK[place] ([facility]) carbon dioxide level 22 mEq/L 21-32 Carbon Dioxide Level [facility] ([facility]) ALT/SGPT 15 U/L 12-78 ALT/SGPT [facility] ([facility]) AST/SGOT 11 U/L 7-37 AST/SGOT [facility] ([facility]) anion gap 8 mEq/L 8-16 Anion Gap PINK[facility] ([facility]) calcium level 9.6 mg/dL 8.5-10.1 Calcium Level PINKY ( [facility]) alkaline phosphatase 53 U/L 45-117 Alkaline Phosph atase [facility] ([facility]) total protein 8.4 gm/dL 6.4-8.2 Above high normal Total Protein A THENA ([facility]) albumin 5.4 gm/dL 3.2-5.2 Above high normal Albumin [place] ([facility]) bilirubin,total 1.2 mg/dL 0.2-1.0 Above high normal Bilirubin,tot al [facility] ([facility]) albumin/globulin ratio Albumin/globu maría Ratio [place] ([facility]) ID Date Data Source [id number] 03/11/2020 11:00:00 AM EST [place] ([facility]) Name Value Range Interpretation Code Description Data Amy rce(s) Supporting Document(s) white blood count 12.0 10 4.0-10.0 Above high normal White Blood Count [place] ([facility]) hematocrit 47.9 % 42.0-52.0 Hematocrit [place] ([facility]) hemoglobin 16.6 g/dL 13.5-17.5 Hemoglobin [place] ([facility]) red blood count 6.17 10 4.30-6.10 Above high normal Red Blood Cou nt [place] ([facility]) red cell distribution width 13.2 % 11.5-14.5 Red Cell Distribution Width [place] ([facility]) mean corpuscular volume 77.6 fL 80.0-96.0 Below low normal Mean Corpuscular Volume [place] ([facility]) platelet count, automated 141 10 150-450 Below low va l [facility], [facility] mean corpuscular HGB conc 34.7 g/dL 32.0-36.5 Mean Corpu scular HGB Conc [place] ([facility]) mean corpuscular hemoglobin 26.9 pg 27.0-33.0 Below low nor mal Mean Corpuscular Hemoglobin [facility]) lymph % 5.8 % 24.0-44.0 Below low normal Lymph % [facility] ( [facility]) neutrophils % 92.6 % 36.0-66.0 Above high normal Neutrophils % A THENA ([facility]) mono % 0.6 % 0.0-5.0 [place] % [facility] ([facility]) eos % 0.1 % 0.0-3.0 Eos % [facility] ([facility]) immature granulocyte % 0.7 % 0-3.0 Immature Gran ulocyte % [facility] ([facility]) baso % 0.2 % 0.0-1.0 Baso % [facility] ([facility]) nucleated red blood cell % 0.0 % 0-0 Nucleated Red Blood Cell % [facility] ([facility]) neutrophils # 11.1 10 1.5-8.5 Above high normal Neutrophils # A THENA ([facility]) lymph # 0.7 10 1.5-5.0 Below low normal Lymph # [facility] ( [facility]) mono # 0.1 10 0.0-0.8 [place] # [facility] ([facility]) eos # 0.0 10 0.0-0.5 Eos # [facility] ([facility]) baso # 0.0 10 0.0-0.2 Baso # [facility] ([facility]) ID Date Data Source [id number] 03/11/2020 11:00:00 AM EST [facility] ([facility]) Name Value Range Interpretation Code Description Data Amy rce(s) Supporting Document(s) glucose, fasting 137 mg/dL 70-100 Above high normal Glucose, Fas ting [facility] ([facility]) blood urea nitrogen 16 mg/dL 7-18 Blood Urea Nitro gen [facility] ([facility]) creatinine for GFR 0.99 mg/dL 0.70-1.30 Creatinine for GF R [facility] ([facility]) glomerular filtration rate > 60.0 >60 Glomerula r Filtration Rate [facility] ([facility]) potassium serum 4.1 mEq/L 3.5-5.1 Potassium Serum ATHE NA ([facility]) sodium level 137 mEq/L 136-145 Sodium Level [facility] ([facility]) anion gap 8 mEq/L 8-16 Anion Gap [facility] ([facility]) calcium level 9.6 mg/dL 8.5-10.1 Calcium Level [facility] ( [facility]) carbon dioxide level 22 mEq/L 21-32 Carbon Dioxide Level [facility] ([facility]) chloride level 107 mEq/L 98-107 Chloride Level [facility] ([facility]) AST/SGOT 11 U/L 7-37 AST/SGOT [facility] ([facility]) alkaline phosphatase 53 U/L 45-117 Alkaline Phosph atase [facility] ([facility]) ALT/SGPT 15 U/L 12-78 ALT/SGPT [facility] ([facility]) bilirubin,total 1.2 mg/dL 0.2-1.0 Above high normal Bilirubin,tot al [facility] ([facility]) albumin 5.4 gm/dL 3.2-5.2 Above high normal Albumin [facility] ([facility]) total protein 8.4 gm/dL 6.4-8.2 Above high normal Total Protein A [facility] ([facility]) albumin/globulin ratio Albumin/globu maría Ratio [place] ([facility]) ID Date Data Source [id number] 03/11/2020 11:00:00 AM EST [place] ([facility]) Name Value Range Interpretation Code Description Data Amy rce(s) Supporting Document(s) white blood count 12.0 10 4.0-10.0 Above high normal White Blood Count [facility] ([facility]) mean corpuscular volume 77.6 fL 80.0-96.0 Below low normal Mean Corpuscular Volume [facility] ([facility]) mean corpuscular hemoglobin 26.9 pg 27.0-33.0 Below low nor mal Mean Corpuscular Hemoglobin [facility] ([facility]) red blood count 6.17 10 4.30-6.10 Above high normal Red Blood Cou nt [facility] ([facility]) hematocrit 47.9 % 42.0-52.0 Hematocrit [facility] ([facility]) hemoglobin 16.6 g/dL 13.5-17.5 Hemoglobin [facility] ([facility]) neutrophils % 92.6 % 36.0-66.0 Above high normal Neutrophils % A [facility] ([facility]) mean corpuscular HGB conc 34.7 g/dL 32.0-36.5 Mean Corpu scular HGB Conc [facility] ([facility]) platelet count, automated 141 10 150-450 Below low va l Platelet Count, Automated [facility] ([facility]) red cell distribution width 13.2 % 11.5-14.5 Red Cell Distribution Width [facility] ([facility]) eos % 0.1 % 0.0-3.0 Eos % [facility] ([facility]) lymph % 5.8 % 24.0-44.0 Below low normal Lymph % [facility] ( [facility]) mono % 0.6 % 0.0-5.0 [place] % [facility] ([facility]) immature granulocyte % 0.7 % 0-3.0 Immature Gran ulocyte % [facility] ([facility]) baso % 0.2 % 0.0-1.0 Baso % [facility] ([facility]) mono # 0.1 10 0.0-0.8 [place] # [facility] ([facility]) nucleated red blood cell % 0.0 % 0-0 Nucleated Red Blood Cell % [facility] ([facility]) eos # 0.0 10 0.0-0.5 Eos # [facility] ([facility]) lymph # 0.7 10 1.5-5.0 Below low normal Lymph # [facility] ( [facility]) neutrophils # 11.1 10 1.5-8.5 Above high normal Neutrophils # A THENA ([facility]) baso # 0.0 10 0.0-0.2 Baso # [facility] ([facility]) ID Date Data Source [id number] 03/11/2020 11:00:00 AM EST [facility] ([facility]) Name Value Range Interpretation Code Description Data Amy rce(s) Supporting Document(s) glucose, fasting 137 mg/dL 70-100 Above high normal Glucose, Fas ting [facility] ([facility]) glomerular filtration rate > 60.0 >60 Glomerula r Filtration Rate [facility] ([facility]) creatinine for GFR 0.99 mg/dL 0.70-1.30 Creatinine for GF R [facility] ([facility]) blood urea nitrogen 16 mg/dL 7-18 Blood Urea Nitro gen [facility] ([facility]) sodium level 137 mEq/L 136-145 Sodium Level [facility] (No [facility]) potassium serum 4.1 mEq/L 3.5-5.1 Potassium Serum ATH NA ([facility]) chloride level 107 mEq/L 98-107 Chloride Level [place] ([facility]) carbon dioxide level 22 mEq/L 21-32 Carbon Dioxide Level [place] ([facility]) calcium level 9.6 mg/dL 8.5-10.1 Calcium Level [facility] ( [facility]) anion gap 8 mEq/L 8-16 Anion Gap [facility] ([facility]) AST/SGOT 11 U/L 7-37 AST/SGOT [facility] ([facility]) ALT/SGPT 15 U/L 12-78 ALT/SGPT [place] ([facility]) alkaline phosphatase 53 U/L 45-117 Alkaline Phosph atase [facility] ([facility]) bilirubin,total 1.2 mg/dL 0.2-1.0 Above high normal Bilirubin,tot al [facility] ([facility]) albumin 5.4 gm/dL 3.2-5.2 Above high normal Albumin [facility] ([facility]) total protein 8.4 gm/dL 6.4-8.2 Above high normal Total Protein A [place] ([facility]) albumin/globulin ratio Albumin/globu maría Ratio [place] ([facility]) ID Date Data Source [id number] 03/11/2020 11:00:00 AM EST [place]NKY ([facility]) Name Value Range Interpretation Code Description Data Amy rce(s) Supporting Document(s) white blood count 12.0 10 4.0-10.0 Above high normal White Blood Count [facility] ([facility]) red blood count 6.17 10 4.30-6.10 Above high normal Red Blood Cou nt [facility] ([facility]) hemoglobin 16.6 g/dL 13.5-17.5 Hemoglobin [facility] ([facility]) mean corpuscular hemoglobin 26.9 pg 27.0-33.0 Below low nor mal Mean Corpuscular Hemoglobin [facility] ([facility]) hematocrit 47.9 % 42.0-52.0 Hematocrit [facility] ([facility]) mean corpuscular volume 77.6 fL 80.0-96.0 Below low normal Mean Corpuscular Volume [facility] ([facility]) neutrophils % 92.6 % 36.0-66.0 Above high normal Neutrophils % A [facility] ([facility]) red cell distribution width 13.2 % 11.5-14.5 Red Cell Distribution Width [place] ([facility]) platelet count, automated 141 10 150-450 Below low va l Platelet Count, Automated [facility] ([facility]) mean corpuscular HGB conc 34.7 g/dL 32.0-36.5 Mean Corpu scular HGB Conc [place] ([facility]) lymph % 5.8 % 24.0-44.0 Below low normal Lymph % [facility] ( [facility]) baso % 0.2 % 0.0-1.0 Baso % [facility] ([facility]) mono % 0.6 % 0.0-5.0 [place] % [facility] ([facility]) eos % 0.1 % 0.0-3.0 Eos % [facility] ([facility]) immature granulocyte % 0.7 % 0-3.0 Immature Gran ulocyte % [facility] ([facility]) nucleated red blood cell % 0.0 % 0-0 Nucleated Red Blood Cell % [facility] ([facility]) neutrophils # 11.1 10 1.5-8.5 Above high normal Neutrophils # A THE[place] ([facility]) lymph # 0.7 10 1.5-5.0 Below low normal Lymph # [facility] ( [facility]) baso # 0.0 10 0.0-0.2 Baso # [facility] ([facility]) eos # 0.0 10 0.0-0.5 Eos # [facility] ([facility]) mono # 0.1 10 0.0-0.8 [place] # [facility] ([facility]) ID Date Data Source [id number] 03/11/2020 11:00:00 AM EST [facility] ([facility]) Name Value Range Interpretation Code Description Data Amy rce(s) Supporting Document(s) glucose, fasting 137 mg/dL 70-100 Above high normal Glucose, Fas ting [facility] ([facility]) blood urea nitrogen 16 mg/dL 7-18 Blood Urea Nitro gen [facility] ([facility]) glomerular filtration rate > 60.0 >60 Glomerula r Filtration Rate [place] ([facility]) creatinine for GFR 0.99 mg/dL 0.70-1.30 Creatinine for GF R [facility] ([facility]) sodium level 137 mEq/L 136-145 Sodium Level [facility] (No [facility]) carbon dioxide level 22 mEq/L 21-32 Carbon Dioxide Level [facility] ([facility]) chloride level 107 mEq/L 98-107 Chloride Level [place] ([facility]) potassium serum 4.1 mEq/L 3.5-5.1 Potassium Serum ATHE NA ([facility]) anion gap 8 mEq/L 8-16 Anion Gap [facility] ([facility]) AST/SGOT 11 U/L 7-37 AST/SGOT [facility] ([facility]) ALT/SGPT 15 U/L 12-78 ALT/SGPT [facility] ([facility]) calcium level 9.6 mg/dL 8.5-10.1 Calcium Level [facility] ( [facility]) total protein 8.4 gm/dL 6.4-8.2 Above high normal Total Protein A [place] ([facility]) alkaline phosphatase 53 U/L 45-117 Alkaline Phosph atase [facility] ([facility]) bilirubin,total 1.2 mg/dL 0.2-1.0 Above high normal Bilirubin,tot al [place] ([facility]) albumin 5.4 gm/dL 3.2-5.2 Above high normal Albumin [place] ([facility]) albumin/globulin ratio Albumin/globu maría Ratio [place] ([facility]) ID Date Data Source [id number] 03/11/2020 11:00:00 AM EST [facility] ([facility]) Name Value Range Interpretation Code Description Data Amy rce(s) Supporting Document(s) white blood count 12.0 10 4.0-10.0 Above high normal White Blood Count [facility] ([facility]) hematocrit 47.9 % 42.0-52.0 Hematocrit [place] ([facility]) hemoglobin 16.6 g/dL 13.5-17.5 Hemoglobin [facility]) red blood count 6.17 10 4.30-6.10 Above high normal Red Blood Cou nt [place] ([facility]) mean corpuscular volume 77.6 fL 80.0-96.0 Below low normal Mean Corpuscular Volume [place] ([facility]) mean corpuscular hemoglobin 26.9 pg 27.0-33.0 Below low nor mal Mean Corpuscular Hemoglobin [place] ([facility]) mean corpuscular HGB conc 34.7 g/dL 32.0-36.5 Mean Corpu scular HGB Conc [place] ([facility]) red cell distribution width 13.2 % 11.5-14.5 Red Cell Distribution Width [place] ([facility]) platelet count, automated 141 10 150-450 Below low va l Platelet Count, Automated [place] ([facility]) neutrophils % 92.6 % 36.0-66.0 Above high normal Neutrophils % A THENA [facility]) lymph % 5.8 % 24.0-44.0 Below low normal Lymph % [place] ( [facility]) mono % 0.6 % 0.0-5.0 [place] % [facility] ([facility]) eos % 0.1 % 0.0-3.0 Eos % [facility] ([facility]) baso % 0.2 % 0.0-1.0 Baso % [facility] ([facility]) immature granulocyte % 0.7 % 0-3.0 Immature Gran ulocyte % [facility] ([facility]) nucleated red blood cell % 0.0 % 0-0 Nucleated Red Blood Cell % [facility] ([facility]) mono # 0.1 10 0.0-0.8 [place] # [facility] ([facility]) baso # 0.0 10 0.0-0.2 Baso # [facility] ([facility]) lymph # 0.7 10 1.5-5.0 Below low normal Lymph # [facility] ( [facility]) neutrophils # 11.1 10 1.5-8.5 Above high normal Neutrophils # A THE[facility] ([facility]) eos # 0.0 10 0.0-0.5 Eos # [facility] ([facility]) ID Date Data Source [id number] 03/11/2020 11:00:00 AM EST [place] ([facility]) Name Value Range Interpretation Code Description Data Amy rce(s) Supporting Document(s) glucose, fasting 137 mg/dL 70-100 Above high normal Glucose, Fas ting [facility] ([facility]) blood urea nitrogen 16 mg/dL 7-18 Blood Urea Nitro gen [facility] ([facility]) glomerular filtration rate > 60.0 >60 Glomerula r Filtration Rate [facility] ([facility]) creatinine for GFR 0.99 mg/dL 0.70-1.30 Creatinine for GF R [facility] ([facility]) sodium level 137 mEq/L 136-145 Sodium Level [facility] ([facility]) potassium serum 4.1 mEq/L 3.5-5.1 Potassium Serum ATHE NA ([facility]) carbon dioxide level 22 mEq/L 21-32 Carbon Dioxide Level [place] ([facility]) chloride level 107 mEq/L 98-107 Chloride Level [place] ([facility]) anion gap 8 mEq/L 8-16 Anion Gap [place] ([facility]) calcium level 9.6 mg/dL 8.5-10.1 Calcium Level [place] ( [facility]) ALT/SGPT 15 U/L 12-78 ALT/SGPT [facility] ([facility]) AST/SGOT 11 U/L 7-37 AST/SGOT [facility] ([facility]) total protein 8.4 gm/dL 6.4-8.2 Above high normal Total Protein A THE[place] ([facility]) alkaline phosphatase 53 U/L 45-117 Alkaline Phosph atase [facility] ([facility]) bilirubin,total 1.2 mg/dL 0.2-1.0 Above high normal Bilirubin,tot al [facility] ([facility]) albumin/globulin ratio Albumin/globu maría Ratio [facility] ([facility]) albumin 5.4 gm/dL 3.2-5.2 Above high normal Albumin [facility] ([facility]) ID Date Data Source [id number] 03/11/2020 11:00:00 AM EST [facility] ([facility]) Name Value Range Interpretation Code Description Data Amy rce(s) Supporting Document(s) red blood count 6.17 10 4.30-6.10 Above high normal Red Blood Cou nt [facility] ([facility]) hematocrit 47.9 % 42.0-52.0 Hematocrit [facility] ([facility]) white blood count 12.0 10 4.0-10.0 Above high normal White Blood Count [facility] ([facility]) hemoglobin 16.6 g/dL 13.5-17.5 Hemoglobin [facility] ([facility]) mean corpuscular HGB conc 34.7 g/dL 32.0-36.5 Mean Corpu scular HGB Conc [facility] ([facility]) mean corpuscular hemoglobin 26.9 pg 27.0-33.0 Below low nor mal Mean Corpuscular Hemoglobin [facility] ([facility]) mean corpuscular volume 77.6 fL 80.0-96.0 Below low normal Mean Corpuscular Volume [facility] ([facility]) red cell distribution width 13.2 % 11.5-14.5 Red Cell Distribution Width [facility] ([facility]) platelet count, automated 141 10 150-450 Below low va l Platelet Count, Automated [facility] ([facility]) neutrophils % 92.6 % 36.0-66.0 Above high normal Neutrophils % A [facility] ([facility]) baso % 0.2 % 0.0-1.0 Baso % [facility] ([facility]) mono % 0.6 % 0.0-5.0 [place] % [facility] ([facility]) eos % 0.1 % 0.0-3.0 Eos % [facility] ([facility]) lymph % 5.8 % 24.0-44.0 Below low normal Lymph % [facility] ( [facility]) nucleated red blood cell % 0.0 % 0-0 Nucleated Red Blood Cell % [facility] ([facility]) neutrophils # 11.1 10 1.5-8.5 Above high normal Neutrophils # A THEN ([facility]) immature granulocyte % 0.7 % 0-3.0 Immature Gran ulocyte % [facility] ([facility]) eos # 0.0 10 0.0-0.5 Eos # [facility] ([facility]) lymph # 0.7 10 1.5-5.0 Below low normal Lymph # [facility] ( [facility]) mono # 0.1 10 0.0-0.8 [place] # [facility] ([facility]) baso # 0.0 10 0.0-0.2 Baso # [facility] ([facility]) ID Date Data Source [id number] 03/11/2020 11:00:00 AM EST [place] ([facility]) Name Value Range Interpretation Code Description Data Amy rce(s) Supporting Document(s) glucose, fasting 137 mg/dL 70-100 Above high normal Glucose, Fas ting [facility] ([facility]) blood urea nitrogen 16 mg/dL 7-18 Blood Urea Nitro gen [facility] ([facility]) glomerular filtration rate > 60.0 >60 Glomerula r Filtration Rate [facility] ([facility]) sodium level 137 mEq/L 136-145 Sodium Level [facility] (No [facility]) creatinine for GFR 0.99 mg/dL 0.70-1.30 Creatinine for GF R [facility] ([facility]) carbon dioxide level 22 mEq/L 21-32 Carbon Dioxide Level [facility] ([facility]) chloride level 107 mEq/L 98-107 Chloride Level [facility] ([facility]) anion gap 8 mEq/L 8-16 Anion Gap [facility] ([facility]) potassium serum 4.1 mEq/L 3.5-5.1 Potassium Serum ATHE NA ([facility]) AST/SGOT 11 U/L 7-37 AST/SGOT [facility] ([facility]) calcium level 9.6 mg/dL 8.5-10.1 Calcium Level [facility] ( [facility]) total protein 8.4 gm/dL 6.4-8.2 Above high normal Total Protein A THENA ([facility]) alkaline phosphatase 53 U/L 45-117 Alkaline Phosph atase [facility] ([facility]) bilirubin,total 1.2 mg/dL 0.2-1.0 Above high normal Bilirubin,tot al [facility] ([facility]) ALT/SGPT 15 U/L 12-78 ALT/SGPT [facility] ([facility]) albumin 5.4 gm/dL 3.2-5.2 Above high normal Albumin [facility] ([facility]) albumin/globulin ratio Albumin/globu maría Ratio [facility] ([facility]) ID Date Data Source [id number] 03/11/2020 11:00:00 AM EST [facility] ([facility]) Name Value Range Interpretation Code Description Data Amy rce(s) Supporting Document(s) white blood count 12.0 10 4.0-10.0 Above high normal White Blood Count [facility] ([facility]) red blood count 6.17 10 4.30-6.10 Above high normal Red Blood Cou nt [facility] ([facility]) hemoglobin 16.6 g/dL 13.5-17.5 Hemoglobin [facility] ([facility]) mean corpuscular hemoglobin 26.9 pg 27.0-33.0 Below low nor mal Mean Corpuscular Hemoglobin [facility] ([facility]) hematocrit 47.9 % 42.0-52.0 Hematocrit [facility] ([facility]) mean corpuscular volume 77.6 fL 80.0-96.0 Below low normal Mean Corpuscular Volume [facility] ([facility]) red cell distribution width 13.2 % 11.5-14.5 Red Cell Distribution Width [facility] ([facility]) mean corpuscular HGB conc 34.7 g/dL 32.0-36.5 Mean Corpu scular HGB Conc [facility] ([facility]) platelet count, automated 141 10 150-450 Below low va l Platelet Count, Automated [facility] ([facility]) eos % 0.1 % 0.0-3.0 Eos % [facility] ([facility]) lymph % 5.8 % 24.0-44.0 Below low normal Lymph % [place] ( [facility]) neutrophils % 92.6 % 36.0-66.0 Above high normal Neutrophils % [facility] mono % 0.6 % 0.0-5.0 [place] % [facility] ([facility]) immature granulocyte % 0.7 % 0-3.0 Immature Gran ulocyte % [facility] ([facility]) nucleated red blood cell % 0.0 % 0-0 Nucleated Red Blood Cell % [facility] ([facility]) baso % 0.2 % 0.0-1.0 Baso % [facility] ([facility]) lymph # 0.7 10 1.5-5.0 Below low normal Lymph # [facility] ( [facility]) mono # 0.1 10 0.0-0.8 [place] # [facility] ([facility]) neutrophils # 11.1 10 1.5-8.5 Above high normal Neutrophils # A THENA ([facility]) baso # 0.0 10 0.0-0.2 Baso # [facility] ([facility]) eos # 0.0 10 0.0-0.5 Eos # [facility] ([facility]) ID Date Data Source [id number] 03/11/2020 11:00:00 AM EST [facility] ([facility]) Name Value Range Interpretation Code Description Data Aym rce(s) Supporting Document(s) glucose, fasting 137 mg/dL 70-100 Above high normal Glucose, Fas ting [facility] ([facility]) creatinine for GFR 0.99 mg/dL 0.70-1.30 Creatinine for GF R [facility] ([facility]) blood urea nitrogen 16 mg/dL 7-18 Blood Urea Nitro gen [facility] ([facility]) glomerular filtration rate > 60.0 >60 Glomerula r Filtration Rate [facility] ([facility]) sodium level 137 mEq/L 136-145 Sodium Level [facility] (No [facility]) potassium serum 4.1 mEq/L 3.5-5.1 Potassium Serum ATHE NA ([facility]) carbon dioxide level 22 mEq/L 21-32 Carbon Dioxide Level [place] ([facility]) chloride level 107 mEq/L 98-107 Chloride Level [place] ([facility]) AST/SGOT 11 U/L 7-37 AST/SGOT [facility] ([facility]) calcium level 9.6 mg/dL 8.5-10.1 Calcium Level [facility] ( [facility]) anion gap 8 mEq/L 8-16 Anion Gap [facility] ([facility]) ALT/SGPT 15 U/L 12-78 ALT/SGPT [place] ([facility]) alkaline phosphatase 53 U/L 45-117 Alkaline Phosph atase [facility] ([facility]) bilirubin,total 1.2 mg/dL 0.2-1.0 Above high normal Bilirubin,tot al [facility] ([facility]) total protein 8.4 gm/dL 6.4-8.2 Above high normal Total Protein A THENA ([facility]) albumin 5.4 gm/dL 3.2-5.2 Above high normal Albumin [facility] ([facility]) albumin/globulin ratio Albumin/globu maría Ratio [facility] ([facility]) ID Date Data Source [id number] 03/11/2020 11:00:00 AM EST [facility] ([facility]) Name Value Range Interpretation Code Description Data Amy e(s) Supporting Document(s) hemoglobin 16.6 g/dL 13.5-17.5 Hemoglobin [facility] ([facility]) red blood count 6.17 10 4.30-6.10 Above high normal Red Blood Cou nt [facility] ([facility]) white blood count 12.0 10 4.0-10.0 Above high normal White Blood Count [facility] ([facility]) hematocrit 47.9 % 42.0-52.0 Hematocrit [facility] ([facility]) mean corpuscular volume 77.6 fL 80.0-96.0 Below low normal Mean Corpuscular Volume PINKY ([facility]) red cell distribution width 13.2 % 11.5-14.5 Red Cell Distribution Width PINKY ([facility]) mean corpuscular HGB conc 34.7 g/dL 32.0-36.5 Mean Corpu scular HGB Conc PINKY ([facility]) mean corpuscular hemoglobin 26.9 pg 27.0-33.0 Below low nor mal Mean Corpuscular Hemoglobin [facility] ([facility]) mono % 0.6 % 0.0-5.0 [place] % PINKY ([facility]) lymph % 5.8 % 24.0-44.0 Below low normal Lymph % PINKY ( [facility]) neutrophils % 92.6 % 36.0-66.0 Above high normal Neutrophils % A [facility] ([facility]) platelet count, automated 141 10 150-450 Below low va l Platelet Count, Automated PINKY ([facility]) baso % 0.2 % 0.0-1.0 Baso % PINKY ([facility]) nucleated red blood cell % 0.0 % 0-0 Nucleated Red Blood Cell % P[facility] ([facility]) neutrophils # 11.1 10 1.5-8.5 Above high normal Neutrophils # A [facility] ([facility]) eos % 0.1 % 0.0-3.0 Eos % PINKY ([facility]) immature granulocyte % 0.7 % 0-3.0 Immature Gran ulocyte % PINKY ([facility]) mono # 0.1 10 0.0-0.8 [place] # PINKY ([facility]) lymph # 0.7 10 1.5-5.0 Below low normal Lymph # PINKY ( [facility]) eos # 0.0 10 0.0-0.5 Eos # PINK[facility] ([facility]) baso # 0.0 10 0.0-0.2 Baso # PINKY ([facility]) ID Date Data Source [id number] 03/11/2020 11:00:00 AM EST PINKY ([facility]) Name Value Range Interpretation Code Description Data Amy rce(s) Supporting Document(s) creatinine for GFR 0.99 mg/dL 0.70-1.30 Creatinine for GF R [place] ([facility]) glucose, fasting 137 mg/dL 70-100 Above high normal Glucose, Fas ting PNIKY ([facility]) blood urea nitrogen 16 mg/dL 7-18 Blood Urea Nitro gen PINKY ([facility]) sodium level 137 mEq/L 136-145 Sodium Level PINKY (No [facility]) potassium serum 4.1 mEq/L 3.5-5.1 Potassium Serum ATHE NA ([facility]) glomerular filtration rate > 60.0 >60 Glomerula r Filtration Rate [place] ([facility]) calcium level 9.6 mg/dL 8.5-10.1 Calcium Level PINKY ( [facility]) chloride level 107 mEq/L 98-107 Chloride Level PINKY ([facility]) carbon dioxide level 22 mEq/L 21-32 Carbon Dioxide Level PINKY ([facility]) anion gap 8 mEq/L 8-16 Anion Gap [place] ([facility]) AST/SGOT 11 U/L 7-37 AST/SGOT PINKY ([facility]) bilirubin,total 1.2 mg/dL 0.2-1.0 Above high normal Bilirubin,tot al [place] ([facility]) alkaline phosphatase 53 U/L 45-117 Alkaline Phosph atase PINKY ([facility]) ALT/SGPT 15 U/L 12-78 ALT/SGPT PINKY ([facility]) albumin/globulin ratio Albumin/globu maría Ratio PINKY ([facility]) total protein 8.4 gm/dL 6.4-8.2 Above high normal Total Protein [facility]) albumin 5.4 gm/dL 3.2-5.2 Above high normal Albumin [facility]INK[facility] ([facility]) ID Date Data Source [id number] 03/11/2020 11:00:00 AM EST PINKY ([facility]) Name Value Range Interpretation Code Description Data Amy rce(s) Supporting Document(s) red blood count 6.17 10 4.30-6.10 Above high normal Red Blood Cou nt PINKY ([facility]) white blood count 12.0 10 4.0-10.0 Above high normal White Blood Count PINKY ([facility]) hemoglobin 16.6 g/dL 13.5-17.5 Hemoglobin PINK[facility] ([facility]) mean corpuscular volume 77.6 fL 80.0-96.0 Below low normal Mean Corpuscular Volume PINKY ([facility]) hematocrit 47.9 % 42.0-52.0 Hematocrit PINKY ([facility]) mean corpuscular hemoglobin 26.9 pg 27.0-33.0 Below low nor mal Mean Corpuscular Hemoglobin PINKY ([facility]) mean corpuscular HGB conc 34.7 g/dL 32.0-36.5 Mean Corpu scular HGB Conc PINKY ([facility]) platelet count, automated 141 10 150-450 Below low va l Platelet Count, Automated P[facility] ([facility]) red cell distribution width 13.2 % 11.5-14.5 Red Cell Distribution Width PINKY ([facility]) neutrophils % 92.6 % 36.0-66.0 Above high normal Neutrophils % A THEN ([facility]) mono % 0.6 % 0.0-5.0 [place] % PINKY ([facility]) baso % 0.2 % 0.0-1.0 Baso % PINKY ([facility]) lymph % 5.8 % 24.0-44.0 Below low normal Lymph % PINKY ( [facility]) eos % 0.1 % 0.0-3.0 Eos % PINKY ([facility]) immature granulocyte % 0.7 % 0-3.0 Immature Gran ulocyte % PINKY ([facility]) lymph # 0.7 10 1.5-5.0 Below low normal Lymph # PINKY ( [facility]) mono # 0.1 10 0.0-0.8 [place] # PINKY ([facility]) nucleated red blood cell % 0.0 % 0-0 Nucleated Red Blood Cell % PINKY ([facility]) neutrophils # 11.1 10 1.5-8.5 Above high normal Neutrophils # A THENA ([facility]) baso # 0.0 10 0.0-0.2 Baso # PINKY ([facility]) eos # 0.0 10 0.0-0.5 Eos # PINKY ([facility]) ID Date Data Source [id number] 03/11/2020 11:00:00 AM EST PINKY ([facility]) Name Value Range Interpretation Code Description Data Amy rce(s) Supporting Document(s) glucose, fasting 137 mg/dL 70-100 Above high normal Glucose, Fas ting PINKY ([facility]) blood urea nitrogen 16 mg/dL 7-18 Blood Urea Nitro gen PINKY ([facility]) creatinine for GFR 0.99 mg/dL 0.70-1.30 Creatinine for GF R PINKY ([facility]) glomerular filtration rate > 60.0 >60 [place] r Filtration Rate PINKY ([facility]) sodium level 137 mEq/L 136-145 Sodium Level PINKY (No [facility]) chloride level 107 mEq/L 98-107 Chloride Level PINKY ([facility]) potassium serum 4.1 mEq/L 3.5-5.1 Potassium Serum ATHE NA ([facility]) anion gap 8 mEq/L 8-16 Anion Gap PINK[facility] ([facility]) carbon dioxide level 22 mEq/L 21-32 Carbon Dioxide Level PINKY ([facility]) calcium level 9.6 mg/dL 8.5-10.1 Calcium Level [place] ( [facility]) AST/SGOT 11 U/L 7-37 AST/SGOT [facility] ([facility]) bilirubin,total 1.2 mg/dL 0.2-1.0 Above high normal Bilirubin,tot al [facility]INK[facility] ([facility]) alkaline phosphatase 53 U/L 45-117 Alkaline Phosph atase [facility] ([facility]) ALT/SGPT 15 U/L 12-78 ALT/SGPT [place] ([facility]) albumin/globulin ratio Albumin/globu maría Ratio PINKY ([facility]) total protein 8.4 gm/dL 6.4-8.2 Above high normal Total Protein A [facility] ([facility]) albumin 5.4 gm/dL 3.2-5.2 Above high normal Albumin [facility] ([facility]) ID Date Data Source [id number] 03/10/2020 09:00:00 AM EST [facility] Name Value Range Interpretation Code Description Data Amy rce(s) Supporting Document(s) SARS-CoV-2 (COVID 19) [facility] This lab was ordered by [facility] a nd reported by [facility]. ID Date Data Source [id number] 03/06/2020 07:48:00 AM EST [facility] Name Value Range Interpretation Code Description Data Amy rce(s) Supporting Document(s) SARS coronavirus 2 RNA [facility] This lab was ordered by [facility] and reported by [facility]. 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 male patient presenting to the ED for left flankpain that started yesterday. No fevers, No N/V, no abd pain.PCP: Ran Collins MDNo LMP for male patient.REVIEW OF SYSTEMSReview of SystemsConstitutional: [...] file Gets together: Not on file Attends buddhism service: Not on file Active member of [...] doc umented above. Will .Time: 1206On re-exam, NAD, VSS.ED ORDERSOrders Placed This EncounterProcedures CT Abdomen Pelvis Without IV Contrast UrinalysisMedicationsoxycodone-acetaminophen (PERCOCET) 5-325 MG per tablet 1 tablet (1 tablet OralGiven 12/08/19 1120)ibuprofen (ADVIL,MOTRIN) tablet 800 mg (800 mg Oral Given 12/08/19 1120)LABORATORY RESULTSResults for orders placed or performed during the hospital encounter of 12/08/19UrinalysisResult Value Ref Range Color, UA Yellow Yellow Clarity, UA Clear Clear Specific [place], UA 1.025 1.005 - 1.025 pH, UA [...] Studies: Ordered and independently interpreted laboratory tests, seeabove.Imagin g Studies: Imaging studies were ordered. Interpretations [...] Gardner, DO12/08/19 1206 ID Date Data Source [id number] 12/08/2019 11:52:19 AM EDT [facility] ORIGINAL: [place] Dec 08, 2019 11:52 AM by Arpit [...] report was dictated utilizing Fluency voice recognition computer program. Missing smallwords are common, as are minor grammatical and syntax errors. Feel free to contact me if anythingrequires clarification. Arpit Hill MD. Name Value Range Interpretation Code Description Data Amy rce(s) Supporting Document(s) ID Date Data Source [id number] 12/08/2019 11:30:00 AM EDT [facility] Name Value Range Interpretation Code Description Data [facility] rce(s) Supporting Document(s) COLOR Yellow Yellow [facility] CLARITY Clear Clear [facility] SPECIFIC GRAVITY UA 1.025 1.005-1.025 [facility] PH UA 6.5 5.0-7.5 [facility] PROTEIN UA Negative Negative [facility] GLUCOSE UA Negative Negative [facility] KETONES URINE 1+ Negative Abnormal (applies to non-numeric results) [facility] BILIRUBIN UA 1+ Negative Abnormal (applies to non-numeric r esults) [facility] BLOOD UA Negative Negative [facility] NITRITE UA Negative Negative [facility] UROBILINOGEN UA 0.2 Eu/dL <=1.9 [facility] LEUKOCYTE ESTERASE UA Negative Negative [facility] ealth SQUAMOUS EPITHELIAL UA Few /HPF None Seen, Rare Abnormal (applies to non-numeric results) [facility] This is a corrected result for Squamous Epithelial. Previous result was <null> on 12/08/2019 at 1125 EDT BACTERIA UA Rare /HPF None Seen Abnormal (applies to non-numeric re sults) [facility] This is a corrected result for Bacteria. Previous result was <null> on 12/08/2019 at 1125 EDT MUCOUS UA Few /HPF None Seen Abnormal (applies to non-numeric res ults) [facility] This is a corrected result for Mucous. P revious result was <null> on 12/08/2019 at 1125 EDT ID Date Data Source [id number] 12/08/2019 11:12:12 AM EDT [facility] Name Value Range Interpretation Code Description Data 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 Patientwith history of TAR syndrome. Patient states it feels like his kidney ispushing forward and is very enflamed. Patient reports feeling constipated andnot eating well, has lost 10lbs. Procedure Social History Code Duration Value Status Description Data Source(s ) Smoking 02/03/2020 12:00:00 AM EST Unknown if ever smoked comp leted Unknown if ever smoked [facility] ([facility]) Smoking 01/15/2020 12:00:00 AM EST Unknown if ever smoked comp leted Unknown if ever smoked [facility] ([facility]) Smoking 01/14/2020 12:00:00 AM EST Unknown if ever smoked comp leted Unknown if ever smoked [facility] ([facility]) Alcohol intake 12/08/2019 12:00:00 AM EDT Lifetime non-drinker (findi brianna) [facility] Tobacco smoking status MEIS 12/08/2019 12:00:00 AM EDT Never smoker [facility] Vital Signs ID Date Data Source UNK Name Value Range Interpretation Code Description Data Source(s) Body height 62 [in_i] 62 [in_i] [facility] ([facility], ) 5'2" Body weight 106.38 [lb_av] 106.38 [lb_av] [facility] ([facility]) Body mass index (BMI) [Ratio] 19.5 kg/m2 19.5 k g/m2 [facility] ([facility]) [place] body weight 118 [lb_av] 118 [lb_av] [facility] Body weight 48.252 kg 48.252 kg [facility] ([facility]) Body surface area Derived from formula 1.46 m2 1.46 m2 [facility] ([facility]) Body height 62 [in_i] 62 [in_i] [facility] ([facility]) Body mass index (BMI) [Ratio] 18.7 kg/m2 18.7 k g/m2 [facility] ([facility]) Diastolic blood pressure 82 mm[Hg] 82 mm[Hg] [facility] ([facility]) Systolic blood pressure 115 mm[Hg] 115 mm[Hg] A [facility] ([facility]) Body weight 1638 [oz_av] 1638 [oz_av] [facility] ([facility]) Diastolic blood pressure 82 mm[Hg] 82 mm[Hg] [facility] ([facility]) Body height 62 [in_i] 62 [in_i] [facility] ([facility]) Body mass index (BMI) [Ratio] 18.7 kg/m2 18.7 k g/m2 [facility] ([facility]) Systolic blood pressure 115 mm[Hg] 115 mm[Hg] A [facility] ([facility]) Body weight 1638 [oz_av] 1638 [oz_av] [facility] ([facility]) Diastolic blood pressure 82 mm[Hg] 82 mm[Hg] [facility] ([facility]) Body height 62 [in_i] 62 [in_i] [facility] ([facility]) Body mass index (BMI) [Ratio] 18.7 kg/m2 18.7 k g/m2 [facility] ([facility]) Systolic blood pressure 115 mm[Hg] 115 mm[Hg] [facility]) Body weight 1638 [oz_av] 1638 [oz_av] [facility] ([facility]) Diastolic blood pressure 82 mm[Hg] 82 mm[Hg] [facility] ([facility]) Body height 62 [in_i] 62 [in_i] [facility] ([facility]) Body mass index (BMI) [Ratio] 18.7 kg/m2 18.7 k g/m2 [facility] ([facility]) Systolic blood pressure 115 mm[Hg] 115 mm[Hg] A [facility] ([facility]) Body weight 1638 [oz_av] 1638 [oz_av] [facility] ([facility]) Diastolic blood pressure 82 mm[Hg] 82 mm[Hg] [facility] ([facility]) Body height 62 [in_i] 62 [in_i] [facility] ([facility]) Body mass index (BMI) [Ratio] 18.7 kg/m2 18.7 k g/m2 [facility] ([facility]) Systolic blood pressure 115 mm[Hg] 115 mm[Hg] A THENA ([facility]) Body weight 1638 [oz_av] 1638 [oz_av] [facility] ([facility]) Body surface area Derived from formula 1.44 m2 1.44 m2 [facility] ([facility]) Body height 62 [in_i] 62 [in_i] [facility] ([facility]) 5'2" [place] body weight 118 [lb_av] 118 [lb_av] [facility] ([facility]) Body weight 46.721 kg 46.721 kg [facility] ([facility]) Body weight 103.00 [lb_av] 103.00 [lb_av] [facility] ([facility]) Body mass index (BMI) [Ratio] 18.8 kg/m2 18.8 k g/m2 [facility] ([facility]) [place] body weight 118 [lb_av] 118 [lb_av] [facility] ([facility]) Body weight 45.814 kg 45.814 kg [facility] ([facility]) Body surface area Derived from formula 1.43 m2 1.43 m2 [facility] ([facility]) Body height 62 [in_i] 62 [in_i] [facility] ([facility]) 5'2" Body mass index (BMI) [Ratio] 18.5 kg/m2 18.5 k g/m2 [facility] ([facility]) Body weight 101.00 [lb_av] 101.00 [lb_av] [facility] T ([facility]) Body height 62 [in_i] 62 [in_i] [facility]INK[facility] ([facility]) Body height 62 [in_i] 62 [in_i] [facility] ([facility]) Body height 62 [in_i] 62 [in_i] [facility] ([facility]) Body height 62 [in_i] 62 [in_i] [facility] ([facility]) Body height 62 [in_i] 62 [in_i] [facility] ([facility]) Body height 62 [in_i] 62 [in_i] [facility] ([facility]) Body height 62 [in_i] 62 [in_i] [facility] ([facility]) Body height 62 [in_i] 62 [in_i] [facility] ([facility]) Body height 62 [in_i] 62 [in_i] [facility] ([facility]) Body mass index (BMI) [Ratio] 17.1 kg/m2 17.1 k g/m2 [facility] ([facility]) Diastolic blood pressure 76 mm[Hg] 76 mm[Hg] [facility] ([facility]) Body weight 1494.4 [oz_av] 1494.4 [oz_av] ATHEN A ([facility]) Systolic blood pressure 109 mm[Hg] 109 mm[Hg] A [facility]) Body mass index (BMI) [Ratio] 17.1 kg/m2 17.1 k g/m2 [facility] ([facility]) Diastolic blood pressure 76 mm[Hg] 76 mm[Hg] [facility] ([facility]) Body height 62 [in_i] 62 [in_i] [facility] ([facility]) Systolic blood pressure 109 mm[Hg] 109 mm[Hg] A [facility] ([facility]) Body weight 1494.4 [oz_av] 1494.4 [oz_av] ATHEN A ([facility]) Diastolic blood pressure 76 mm[Hg] 76 mm[Hg] PINKY ([facility]) Body height 62 [in_i] 62 [in_i] [facility] ([facility]) Body mass index (BMI) [Ratio] 17.1 kg/m2 17.1 k g/m2 [facility] ([facility]) Systolic blood pressure 109 mm[Hg] 109 mm[Hg] A [facility]) Body weight 1494.4 [oz_av] 1494.4 [oz_av] ATHEN A ([facility]) Diastolic blood pressure 76 mm[Hg] 76 mm[Hg] [facility]INK[facility] ([facility]) Body height 62 [in_i] 62 [in_i] [facility] ([facility]) Body mass index (BMI) [Ratio] 17.1 kg/m2 17.1 k g/m2 [facility] ([facility]) Body weight 1494.4 [oz_av] 1494.4 [oz_av] ATHEN A ([facility]) Systolic blood pressure 109 mm[Hg] 109 mm[Hg] A [facility]) Diastolic blood pressure 76 mm[Hg] 76 mm[Hg] [facility] ([facility]) Body height 62 [in_i] 62 [in_i] [facility] ([facility]) Body mass index (BMI) [Ratio] 17.1 kg/m2 17.1 k g/m2 [facility] ([facility]) Systolic blood pressure 109 mm[Hg] 109 mm[Hg] A [facility]) Body weight 1494.4 [oz_av] 1494.4 [oz_av] ATHEN A ([facility]) Diastolic blood pressure 76 mm[Hg] 76 mm[Hg] [facility] ([facility]) Body height 62 [in_i] 62 [in_i] [facility] ([facility]) Body mass index (BMI) [Ratio] 17.1 kg/m2 17.1 k g/m2 [facility] ([facility]) Systolic blood pressure 109 mm[Hg] 109 mm[Hg] A [facility]) Body weight 1494.4 [oz_av] 1494.4 [oz_av] ATHEN A ([facility]) Diastolic blood pressure 76 mm[Hg] 76 mm[Hg] [facility] ([facility]) Body height 62 [in_i] 62 [in_i] [facility] ([facility]) Body mass index (BMI) [Ratio] 17.1 kg/m2 17.1 k g/m2 [facility] ([facility]) Systolic blood pressure 109 mm[Hg] 109 mm[Hg] A THENA ([facility]) Body weight 1494.4 [oz_av] 1494.4 [oz_av] ATHEN A ([facility]) Diastolic blood pressure 76 mm[Hg] 76 mm[Hg] [facility] ([facility]) Body height 62 [in_i] 62 [in_i] [facility] ([facility]) Body mass index (BMI) [Ratio] 17.1 kg/m2 17.1 k g/m2 [facility] ([facility]) Systolic blood pressure 109 mm[Hg] 109 mm[Hg] A [facility]) Body weight 1494.4 [oz_av] 1494.4 [oz_av] ATHEN A ([facility]) Diastolic blood pressure 76 mm[Hg] 76 mm[Hg] [facility] ([facility]) Body height 62 [in_i] 62 [in_i] [facility] ([facility]) Body mass index (BMI) [Ratio] 17.1 kg/m2 17.1 k g/m2 [facility] ([facility]) Systolic blood pressure 109 mm[Hg] 109 mm[Hg] A [facility]) Body weight 1494.4 [oz_av] 1494.4 [oz_av] ATHEN A ([facility]) Body mass index (BMI) [Ratio] 17.6 kg/m2 17.6 k g/m2 [facility] ([facility]) Diastolic blood pressure 71 mm[Hg] 71 mm[Hg] [facility] ([facility]) Body height 62 [in_i] 62 [in_i] [facility] ([facility]) Systolic blood pressure 110 mm[Hg] 110 mm[Hg] A [facility]) Body weight 1540 [oz_av] 1540 [oz_av] [facility] ([facility]) Systolic blood pressure 110 mm[Hg] 110 mm[Hg] A THENA ([facility]) Body weight 1540 [oz_av] 1540 [oz_av] [facility] ([facility]) Diastolic blood pressure 71 mm[Hg] 71 mm[Hg] [facility] ([facility]) Body height 62 [in_i] 62 [in_i] [facility] ([facility]) Body mass index (BMI) [Ratio] 17.6 kg/m2 17.6 k g/m2 [facility] ([facility]) Diastolic blood pressure 71 mm[Hg] 71 mm[Hg] [facility] ([facility]) Body height 62 [in_i] 62 [in_i] [facility] ([facility]) Body mass index (BMI) [Ratio] 17.6 kg/m2 17.6 k g/m2 [facility] ([facility]) Systolic blood pressure 110 mm[Hg] 110 mm[Hg] A [facility]) Body weight 1540 [oz_av] 1540 [oz_av] [facility] ([facility]) Body weight 1540 [oz_av] 1540 [oz_av] [facility] ([facility]) Diastolic blood pressure 71 mm[Hg] 71 mm[Hg] [facility] ([facility]) Body height 62 [in_i] 62 [in_i] [facility] ([facility]) Systolic blood pressure 110 mm[Hg] 110 mm[Hg] A [facility] ([facility]) Body mass index (BMI) [Ratio] 17.6 kg/m2 17.6 k g/m2 [facility] ([facility]) Diastolic blood pressure 71 mm[Hg] 71 mm[Hg] [facility] ([facility]) Body height 62 [in_i] 62 [in_i] [facility] ([facility]) Body mass index (BMI) [Ratio] 17.6 kg/m2 17.6 k g/m2 [facility] ([facility]) Systolic blood pressure 110 mm[Hg] 110 mm[Hg] A [facility]) Body weight 1540 [oz_av] 1540 [oz_av] [facility] ([facility]) Body height 62 [in_i] 62 [in_i] [facility] ([facility]) Diastolic blood pressure 71 mm[Hg] 71 mm[Hg] [facility] ([facility]) Body mass index (BMI) [Ratio] 17.6 kg/m2 17.6 k g/m2 [facility] ([facility]) Systolic blood pressure 110 mm[Hg] 110 mm[Hg] A THE[facility] ([facility]) Body weight 1540 [oz_av] 1540 [oz_av] [facility] ([facility]) Diastolic blood pressure 71 mm[Hg] 71 mm[Hg] [facility] ([facility]) Body height 62 [in_i] 62 [in_i] [facility] ([facility]) Body mass index (BMI) [Ratio] 17.6 kg/m2 17.6 k g/m2 [facility] ([facility]) Systolic blood pressure 110 mm[Hg] 110 mm[Hg] A [facility] ([facility]) Body weight 1540 [oz_av] 1540 [oz_av] [facility] ([facility]) Diastolic blood pressure 71 mm[Hg] 71 mm[Hg] [facility] ([facility]) Body height 62 [in_i] 62 [in_i] [facility] ([facility]) Body mass index (BMI) [Ratio] 17.6 kg/m2 17.6 k g/m2 [facility] ([facility]) Systolic blood pressure 110 mm[Hg] 110 mm[Hg] A [facility] ([facility]) Body weight 1540 [oz_av] 1540 [oz_av] [facility] ([facility]) Diastolic blood pressure 71 mm[Hg] 71 mm[Hg] [facility] ([facility]) Body height 62 [in_i] 62 [in_i] [facility] ([facility]) Body mass index (BMI) [Ratio] 17.6 kg/m2 17.6 k g/m2 [facility] ([facility]) Systolic blood pressure 110 mm[Hg] 110 mm[Hg] A THENA ([facility]) Body weight 1540 [oz_av] 1540 [oz_av] PINKY ([facility]) Diastolic blood pressure 71 mm[Hg] 71 mm[Hg] PINKY ([facility]) Body height 62 [in_i] 62 [in_i] PINKY ([facility]) Body mass index (BMI) [Ratio] 17.6 kg/m2 17.6 k g/m2 PINKY ([facility]) Systolic blood pressure 110 mm[Hg] 110 mm[Hg] A THENA ([facility]) Body weight 1540 [oz_av] 1540 [oz_av] PINKY ([facility]) Diastolic blood pressure 94 mm[Hg] 94 mm[Hg] PINKY ([facility]) Body height 62 [in_i] 62 [in_i] PINKY ([facility]) Body mass index (BMI) [Ratio] 17.9 kg/m2 17.9 k g/m2 PINKY ([facility]) Body weight 1564.8 [oz_av] 1564.8 [oz_av] ATHEN A ([facility]) Systolic blood pressure 143 mm[Hg] 143 mm[Hg] A [facility] ([facility]) Body mass index (BMI) [Ratio] 17.9 kg/m2 17.9 k g/m2 PINKY ([facility]) Systolic blood pressure 143 mm[Hg] 143 mm[Hg] [facility] Diastolic blood pressure 94 mm[Hg] 94 mm[Hg] PINKY ([facility]) Body height 62 [in_i] 62 [in_i] PINKY ([facility]) Body weight 1564.8 [oz_av] 1564.8 [oz_av] ATHEN A ([facility]) Diastolic blood pressure 94 mm[Hg] 94 mm[Hg] PINKY ([facility]) Body height 62 [in_i] 62 [in_i] PINKY ([facility]) Body mass index (BMI) [Ratio] 17.9 kg/m2 17.9 k g/m2 PINKY ([facility]) Systolic blood pressure 143 mm[Hg] 143 mm[Hg] A THENA ([facility]) Body weight 1564.8 [oz_av] 1564.8 [oz_av] ATHEN A ([facility]) Diastolic blood pressure 94 mm[Hg] 94 mm[Hg] PINKY ([facility]) Body height 62 [in_i] 62 [in_i] PINKY ([facility]) Body mass index (BMI) [Ratio] 17.9 kg/m2 17.9 k g/m2 PINKY ([facility]) Systolic blood pressure 143 mm[Hg] 143 mm[Hg] A THENA ([facility]) Body weight 1564.8 [oz_av] 1564.8 [oz_av] ATHEN A ([facility]) Diastolic blood pressure 94 mm[Hg] 94 mm[Hg] PINKY ([facility]) Body height 62 [in_i] 62 [in_i] PINKY ([facility]) Body mass index (BMI) [Ratio] 17.9 kg/m2 17.9 k g/m2 PINKY ([facility]) Systolic blood pressure 143 mm[Hg] 143 mm[Hg] A THENA ([facility]) Body weight 1564.8 [oz_av] 1564.8 [oz_av] ATHEN A ([facility]) Body height 62 [in_i] 62 [in_i] PINKY ([facility]) Diastolic blood pressure 94 mm[Hg] 94 mm[Hg] PINKY ([facility]) Body mass index (BMI) [Ratio] 17.9 kg/m2 17.9 k g/m2 PINKY ([facility]) Systolic blood pressure 143 mm[Hg] 143 mm[Hg] A [facility]) Body weight 1564.8 [oz_av] 1564.8 [oz_av] ATHEN A ([facility]) Diastolic blood pressure 94 mm[Hg] 94 mm[Hg] PINKY ([facility]) Body height 62 [in_i] 62 [in_i] PINKY ([facility]) Body mass index (BMI) [Ratio] 17.9 kg/m2 17.9 k g/m2 PINKY ([facility]) Systolic blood pressure 143 mm[Hg] 143 mm[Hg] A THENA ([facility]) Body weight 1564.8 [oz_av] 1564.8 [oz_av] ATHEN A ([facility]) Diastolic blood pressure 94 mm[Hg] 94 mm[Hg] PINKY ([facility]) Body height 62 [in_i] 62 [in_i] PINKY ([facility]) Body mass index (BMI) [Ratio] 17.9 kg/m2 17.9 k g/m2 PINKY ([facility]) Systolic blood pressure 143 mm[Hg] 143 mm[Hg] A THENA ([facility]) Body weight 1564.8 [oz_av] 1564.8 [oz_av] ATHEN A ([facility]) Diastolic blood pressure 94 mm[Hg] 94 mm[Hg] PINKY ([facility]) Body height 62 [in_i] 62 [in_i] PINKY ([facility]) Body mass index (BMI) [Ratio] 17.9 kg/m2 17.9 k g/m2 PINKY ([facility]) Systolic blood pressure 143 mm[Hg] 143 mm[Hg] A THENA ([facility]) Body weight 1564.8 [oz_av] 1564.8 [oz_av] ATHEN A ([facility]) Systolic blood pressure 143 mm[Hg] 143 mm[Hg] A THENA ([facility]) Diastolic blood pressure 94 mm[Hg] 94 mm[Hg] PINKY ([facility]) Body height 62 [in_i] 62 [in_i] PINKY ([facility]) Body mass index (BMI) [Ratio] 17.9 kg/m2 17.9 k g/m2 PINKY ([facility]) Body weight 1564.8 [oz_av] 1564.8 [oz_av] ATHEN A ([facility]) Diastolic blood pressure 94 mm[Hg] 94 mm[Hg] PINKY ([facility]) Body height 62 [in_i] 62 [in_i] PINKY ([facility]) Body mass index (BMI) [Ratio] 17.9 kg/m2 17.9 k g/m2 PINKY ([facility]) Systolic blood pressure 143 mm[Hg] 143 mm[Hg] A THENA ([facility]) Body weight 1564.8 [oz_av] 1564.8 [oz_av] ATHEN A ([facility]) Diastolic blood pressure 94 mm[Hg] 94 mm[Hg] PINKY ([facility]) Body height 62 [in_i] 62 [in_i] PINKY ([facility]) Body mass index (BMI) [Ratio] 17.9 kg/m2 17.9 k g/m2 PINKY ([facility]) Systolic blood pressure 143 mm[Hg] 143 mm[Hg] A THENA ([facility]) Body weight 1564.8 [oz_av] 1564.8 [oz_av] ATHEN A ([facility]) Diastolic blood pressure 73 mm[Hg] 73 mm[Hg] PINKY ([facility]) Body height 62 [in_i] 62 [in_i] PINKY ([facility]) Body mass index (BMI) [Ratio] 17.9 kg/m2 17.9 k g/m2 PINKY ([facility]) Systolic blood pressure 112 mm[Hg] 112 mm[Hg] A THENA ([facility]) Body weight 1568 [oz_av] 1568 [oz_av] PINKY ([facility]) Diastolic blood pressure 73 mm[Hg] 73 mm[Hg] PINKY ([facility]) Body height 62 [in_i] 62 [in_i] PINKY ([facility]) Body mass index (BMI) [Ratio] 17.9 kg/m2 17.9 k g/m2 PINKY ([facility]) Systolic blood pressure 112 mm[Hg] 112 mm[Hg] A THENA ([facility]) Body weight 1568 [oz_av] 1568 [oz_av] PINKY ([facility]) Diastolic blood pressure 73 mm[Hg] 73 mm[Hg] PINKY ([facility]) Body height 62 [in_i] 62 [in_i] PINKY ([facility]) Body mass index (BMI) [Ratio] 17.9 kg/m2 17.9 k g/m2 PINKY ([facility]) Systolic blood pressure 112 mm[Hg] 112 mm[Hg] A THENA ([facility]) Body weight 1568 [oz_av] 1568 [oz_av] PINKY ([facility]) Diastolic blood pressure 73 mm[Hg] 73 mm[Hg] PINKY ([facility]) Body height 62 [in_i] 62 [in_i] PINKY ([facility]) Body mass index (BMI) [Ratio] 17.9 kg/m2 17.9 k g/m2 PINKY ([facility]) Systolic blood pressure 112 mm[Hg] 112 mm[Hg] A THENA ([facility]) Body weight 1568 [oz_av] 1568 [oz_av] PINKY ([facility]) Diastolic blood pressure 73 mm[Hg] 73 mm[Hg] PINKY ([facility]) Body height 62 [in_i] 62 [in_i] PINKY ([facility]) Body mass index (BMI) [Ratio] 17.9 kg/m2 17.9 k g/m2 PINKY ([facility]) Systolic blood pressure 112 mm[Hg] 112 mm[Hg] A THENA ([facility]) Body weight 1568 [oz_av] 1568 [oz_av] PINKY ([facility]) Body height 62 [in_i] 62 [in_i] PINKY ([facility]) Body mass index (BMI) [Ratio] 17.9 kg/m2 17.9 k g/m2 PINKY ([facility]) Systolic blood pressure 112 mm[Hg] 112 mm[Hg] A [facility]) Body weight 1568 [oz_av] 1568 [oz_av] PINKY ([facility]) Diastolic blood pressure 73 mm[Hg] 73 mm[Hg] PINKY ([facility]) Diastolic blood pressure 73 mm[Hg] 73 mm[Hg] PINKY ([facility]) Body height 62 [in_i] 62 [in_i] PINKY ([facility]) Body mass index (BMI) [Ratio] 17.9 kg/m2 17.9 k g/m2 PINKY ([facility]) Systolic blood pressure 112 mm[Hg] 112 mm[Hg] A THENA ([facility]) Body weight 1568 [oz_av] 1568 [oz_av] PINKY ([facility]) Diastolic blood pressure 73 mm[Hg] 73 mm[Hg] PINKY ([facility]) Body height 62 [in_i] 62 [in_i] PINKY ([facility]) Body mass index (BMI) [Ratio] 17.9 kg/m2 17.9 k g/m2 PINKY ([facility]) Systolic blood pressure 112 mm[Hg] 112 mm[Hg] A THENA ([facility]) Body weight 1568 [oz_av] 1568 [oz_av] PINKY ([facility]) Body mass index (BMI) [Ratio] 17.9 kg/m2 17.9 k g/m2 PINKY ([facility]) Body weight 1568 [oz_av] 1568 [oz_av] PINKY ([facility]) Diastolic blood pressure 73 mm[Hg] 73 mm[Hg] PINKY ([facility]) Body height 62 [in_i] 62 [in_i] PINKY ([facility]) Systolic blood pressure 112 mm[Hg] 112 mm[Hg] A THENA ([facility]) Body weight 1568 [oz_av] 1568 [oz_av] PINKY ([facility]) Diastolic blood pressure 73 mm[Hg] 73 mm[Hg] PINKY ([facility]) Body height 62 [in_i] 62 [in_i] PINKY ([facility]) Body mass index (BMI) [Ratio] 17.9 kg/m2 17.9 k g/m2 PINKY ([facility]) Systolic blood pressure 112 mm[Hg] 112 mm[Hg] A [facility]) Diastolic blood pressure 73 mm[Hg] 73 mm[Hg] PINKY ([facility]) Body height 62 [in_i] 62 [in_i] PINKY ([facility]) Body mass index (BMI) [Ratio] 17.9 kg/m2 17.9 k g/m2 PINKY ([facility]) Systolic blood pressure 112 mm[Hg] 112 mm[Hg] A THENA ([facility]) Body weight 1568 [oz_av] 1568 [oz_av] PINKY ([facility]) Body mass index (BMI) [Ratio] 17.9 kg/m2 17.9 k g/m2 PINKY ([facility]) Systolic blood pressure 112 mm[Hg] 112 mm[Hg] A THENA ([facility]) Body weight 1568 [oz_av] 1568 [oz_av] PINKY ([facility]) Diastolic blood pressure 73 mm[Hg] 73 mm[Hg] PINKY ([facility]) Body height 62 [in_i] 62 [in_i] PINKY ([facility]) Diastolic blood pressure 73 mm[Hg] 73 mm[Hg] PINKY ([facility]) Body height 62 [in_i] 62 [in_i] PINKY ([facility]) Body mass index (BMI) [Ratio] 17.9 kg/m2 17.9 k g/m2 PINKY ([facility]) Systolic blood pressure 112 mm[Hg] 112 mm[Hg] A THENA ([facility]) Body weight 1568 [oz_av] 1568 [oz_av] PINKY ([facility]) Body weight 99.00 [lb_av] 99.00 [lb_av] MEDENT ([facility]) Body height 62 [in_i] 62 [in_i] MEDENT ([facility]) 5'2" [place] body weight 118 [lb_av] 118 [lb_av] MEDEN T ([facility]) Body weight 44.906 kg 44.906 kg MEDENT ([facility]) Body surface area Derived from formula 1.42 m2 1.42 m2 [facility] ([facility]) Body mass index (BMI) [Ratio] 18.1 kg/m2 18.1 k g/m2 [facility] ([facility]) Body height 62 [in_i] 62 [in_i] MEDENT ([facility]) 5'2" Body weight 99.00 [lb_av] 99.00 [lb_av] MEDENT ([facility]) Body mass index (BMI) [Ratio] 18.1 kg/m2 18.1 k g/m2 [facility] ([facility]) [place] body weight 118 [lb_av] 118 [lb_av] MEDEN T ([facility]) Body weight 44.906 kg 44.906 kg MEDENT ([facility]) Body surface area Derived from formula 1.42 m2 1.42 m2 MEDENT ([facility]) Body weight 99.00 [lb_av] 99.00 [lb_av] MEDENT ([facility]) Body mass index (BMI) [Ratio] 18.1 kg/m2 18.1 k g/m2 [facility] ([facility]) [place] body weight 118 [lb_av] 118 [lb_av] MEDEN T ([facility]) Body weight 44.906 kg 44.906 kg MEDENT ([facility]) Body surface area Derived from formula 1.42 m2 1.42 m2 [facility] ([facility]) Body height 62 [in_i] 62 [in_i] MEDENT ([facility]) 5'2" Body weight 44.906 kg 44.906 kg [facility] ([facility]) Body surface area Derived from formula 1.42 m2 1.42 m2 [facility] Body height 62 [in_i] 62 [in_i] MEDENT ([facility]) 5'2" Body weight 99.00 [lb_av] 99.00 [lb_av] [facility] Body mass index (BMI) [Ratio] 18.1 kg/m2 18.1 k g/m2 [facility] ([facility]) [place] body weight 118 [lb_av] 118 [lb_av] MEDEN T ([facility]) Diastolic blood pressure 68 mm[Hg] 68 mm[Hg] PINKY ([facility]) Body height 62 [in_i] 62 [in_i] PINKY ([facility]) Body mass index (BMI) [Ratio] 18.2 kg/m2 18.2 k g/m2 PINKY ([facility]) Systolic blood pressure 110 mm[Hg] 110 mm[Hg] A [facility] ([facility]) Body weight 1588 [oz_av] 1588 [oz_av] PINKY ([facility]) Body height 62 [in_i] 62 [in_i] PINKY ([facility]) Diastolic blood pressure 68 mm[Hg] 68 mm[Hg] PINKY ([facility]) Body mass index (BMI) [Ratio] 18.2 kg/m2 18.2 k g/m2 PINKY ([facility]) Systolic blood pressure 110 mm[Hg] 110 mm[Hg] A [facility] ([facility]) Body weight 1588 [oz_av] 1588 [oz_av] PINKY ([facility]) Body weight 1588 [oz_av] 1588 [oz_av] PINKY ([facility]) Diastolic blood pressure 68 mm[Hg] 68 mm[Hg] PINKY ([facility]) Body height 62 [in_i] 62 [in_i] PINKY ([facility]) Body mass index (BMI) [Ratio] 18.2 kg/m2 18.2 k g/m2 PINKY ([facility]) Systolic blood pressure 110 mm[Hg] 110 mm[Hg] A [facility]) Diastolic blood pressure 68 mm[Hg] 68 mm[Hg] PINKY ([facility]) Body height 62 [in_i] 62 [in_i] PINKY ([facility]) Body mass index (BMI) [Ratio] 18.2 kg/m2 18.2 k g/m2 PINKY ([facility]) Systolic blood pressure 110 mm[Hg] 110 mm[Hg] A [facility] ([facility]) Body weight 1588 [oz_av] 1588 [oz_av] PINKY ([facility]) Diastolic blood pressure 68 mm[Hg] 68 mm[Hg] PINKY ([facility]) Body height 62 [in_i] 62 [in_i] PINKY ([facility]) Body mass index (BMI) [Ratio] 18.2 kg/m2 18.2 k g/m2 PINKY ([facility]) Systolic blood pressure 110 mm[Hg] 110 mm[Hg] A [facility] Body weight 1588 [oz_av] 1588 [oz_av] PINKY ([facility]) Body mass index (BMI) [Ratio] 18.2 kg/m2 18.2 k g/m2 PINKY ([facility]) Systolic blood pressure 110 mm[Hg] 110 mm[Hg] A THENA ([facility]) Body weight 1588 [oz_av] 1588 [oz_av] PINKY ([facility]) Diastolic blood pressure 68 mm[Hg] 68 mm[Hg] PINKY ([facility]) Body height 62 [in_i] 62 [in_i] PINKY ([facility]) Diastolic blood pressure 68 mm[Hg] 68 mm[Hg] PINKY ([facility]) Body height 62 [in_i] 62 [in_i] PINKY ([facility]) Body mass index (BMI) [Ratio] 18.2 kg/m2 18.2 k g/m2 PINKY ([facility]) Systolic blood pressure 110 mm[Hg] 110 mm[Hg] A [facility]) Body weight 1588 [oz_av] 1588 [oz_av] PINKY ([facility]) Diastolic blood pressure 68 mm[Hg] 68 mm[Hg] PINKY ([facility]) Body height 62 [in_i] 62 [in_i] PINKY ([facility]) Body mass index (BMI) [Ratio] 18.2 kg/m2 18.2 k g/m2 PINKY ([facility]) Systolic blood pressure 110 mm[Hg] 110 mm[Hg] A [facility] ([facility]) Body weight 1588 [oz_av] 1588 [oz_av] PINKY ([facility]) Body height 62 [in_i] 62 [in_i] PINKY ([facility]) Body mass index (BMI) [Ratio] 18.2 kg/m2 18.2 k g/m2 PINKY ([facility]) Systolic blood pressure 110 mm[Hg] 110 mm[Hg] A [facility]) Body weight 1588 [oz_av] 1588 [oz_av] PINKY ([facility]) Diastolic blood pressure 68 mm[Hg] 68 mm[Hg] PINKY ([facility]) Diastolic blood pressure 68 mm[Hg] 68 mm[Hg] PINKY ([facility]) Body height 62 [in_i] 62 [in_i] PINKY ([facility]) Body mass index (BMI) [Ratio] 18.2 kg/m2 18.2 k g/m2 PINKY ([facility]) Systolic blood pressure 110 mm[Hg] 110 mm[Hg] A [facility]) Body weight 1588 [oz_av] 1588 [oz_av] PINKY ([facility]) Diastolic blood pressure 68 mm[Hg] 68 mm[Hg] PINKY ([facility]) Body height 62 [in_i] 62 [in_i] PINKY ([facility]) Body mass index (BMI) [Ratio] 18.2 kg/m2 18.2 k g/m2 PINKY ([facility]) Systolic blood pressure 110 mm[Hg] 110 mm[Hg] A [facility]) Body weight 1588 [oz_av] 1588 [oz_av] PINKY ([facility]) Diastolic blood pressure 68 mm[Hg] 68 mm[Hg] PINKY ([facility]) Body height 62 [in_i] 62 [in_i] PINKY ([facility]) Body mass index (BMI) [Ratio] 18.2 kg/m2 18.2 k g/m2 PINKY ([facility]) Systolic blood pressure 110 mm[Hg] 110 mm[Hg] A [facility] ([facility]) Body weight 1588 [oz_av] 1588 [oz_av] PINKY ([facility]) Diastolic blood pressure 68 mm[Hg] 68 mm[Hg] PINKY ([facility]) Body height 62 [in_i] 62 [in_i] PINKY ([facility]) Body mass index (BMI) [Ratio] 18.2 kg/m2 18.2 k g/m2 PINKY ([facility]) Systolic blood pressure 110 mm[Hg] 110 mm[Hg] A [facility]) Body weight 1588 [oz_av] 1588 [oz_av] PINKY ([facility]) Diastolic blood pressure 68 mm[Hg] 68 mm[Hg] PINKY ([facility]) Body height 62 [in_i] 62 [in_i] PINKY ([facility]) Body mass index (BMI) [Ratio] 18.2 kg/m2 18.2 k g/m2 PINKY ([facility]) Systolic blood pressure 110 mm[Hg] 110 mm[Hg] A [facility] ([facility]) Body weight 1588 [oz_av] 1588 [oz_av] PINKY ([facility]) Body mass index (BMI) [Ratio] 18.2 kg/m2 18.2 k g/m2 PINKY ([facility]) Body height 62 [in_i] 62 [in_i] PINKY ([facility]) Diastolic blood pressure 68 mm[Hg] 68 mm[Hg] PINKY ([facility]) Systolic blood pressure 110 mm[Hg] 110 mm[Hg] A MARTHAA ([facility]) Body weight 1588 [oz_av] 1588 [oz_av] PINKY ([facility]) Body height 62 [in_i] 62 [in_i] PINKY ([facility]) Diastolic blood pressure 71 mm[Hg] 71 mm[Hg] PINKY ([facility]) Body mass index (BMI) [Ratio] 18.3 kg/m2 18.3 k g/m2 PINKY ([facility]) Systolic blood pressure 104 mm[Hg] 104 mm[Hg] A MARTHA ([facility]) Body weight 1596.8 [oz_av] 1596.8 [oz_av] ATHEN A ([facility]) Diastolic blood pressure 71 mm[Hg] 71 mm[Hg] PINKY ([facility]) Body height 62 [in_i] 62 [in_i] PINKY ([facility]) Body mass index (BMI) [Ratio] 18.3 kg/m2 18.3 k g/m2 PINKY ([facility]) Systolic blood pressure 104 mm[Hg] 104 mm[Hg] A THENA ([facility]) Body weight 1596.8 [oz_av] 1596.8 [oz_av] ATHEN A ([facility]) Diastolic blood pressure 71 mm[Hg] 71 mm[Hg] PINKY ([facility]) Body height 62 [in_i] 62 [in_i] PINKY ([facility]) Body mass index (BMI) [Ratio] 18.3 kg/m2 18.3 k g/m2 PINKY ([facility]) Systolic blood pressure 104 mm[Hg] 104 mm[Hg] A THENA ([facility]) Body weight 1596.8 [oz_av] 1596.8 [oz_av] ATHEN A ([facility]) Diastolic blood pressure 71 mm[Hg] 71 mm[Hg] PINKY ([facility]) Body height 62 [in_i] 62 [in_i] PINKY ([facility]) Body mass index (BMI) [Ratio] 18.3 kg/m2 18.3 k g/m2 PINKY ([facility]) Systolic blood pressure 104 mm[Hg] 104 mm[Hg] A [facility] Body weight 1596.8 [oz_av] 1596.8 [oz_av] ATHEN A ([facility]) Diastolic blood pressure 71 mm[Hg] 71 mm[Hg] PINKY ([facility]) Body height 62 [in_i] 62 [in_i] PINKY ([facility]) Body mass index (BMI) [Ratio] 18.3 kg/m2 18.3 k g/m2 PINKY ([facility]) Systolic blood pressure 104 mm[Hg] 104 mm[Hg] A [facility] ([facility]) Body weight 1596.8 [oz_av] 1596.8 [oz_av] ATHEN A ([facility]) Diastolic blood pressure 71 mm[Hg] 71 mm[Hg] PINKY ([facility]) Body height 62 [in_i] 62 [in_i] PINKY ([facility]) Body mass index (BMI) [Ratio] 18.3 kg/m2 18.3 k g/m2 PINKY ([facility]) Systolic blood pressure 104 mm[Hg] 104 mm[Hg] A THENA ([facility]) Body weight 1596.8 [oz_av] 1596.8 [oz_av] ATHEN A ([facility]) Diastolic blood pressure 71 mm[Hg] 71 mm[Hg] PINKY ([facility]) Body height 62 [in_i] 62 [in_i] PINKY ([facility]) Body mass index (BMI) [Ratio] 18.3 kg/m2 18.3 k g/m2 PINKY ([facility]) Systolic blood pressure 104 mm[Hg] 104 mm[Hg] A THENA ([facility]) Body weight 1596.8 [oz_av] 1596.8 [oz_av] ATHEN A ([facility]) Diastolic blood pressure 71 mm[Hg] 71 mm[Hg] PINKY ([facility]) Body height 62 [in_i] 62 [in_i] PINKY ([facility]) Body mass index (BMI) [Ratio] 18.3 kg/m2 18.3 k g/m2 PINKY ([facility]) Systolic blood pressure 104 mm[Hg] 104 mm[Hg] [facility] Body weight 1596.8 [oz_av] 1596.8 [oz_av] ATHEN A ([facility]) Diastolic blood pressure 71 mm[Hg] 71 mm[Hg] PINKY ([facility]) Body height 62 [in_i] 62 [in_i] PINKY ([facility]) Body mass index (BMI) [Ratio] 18.3 kg/m2 18.3 k g/m2 PINKY ([facility]) Systolic blood pressure 104 mm[Hg] 104 mm[Hg] [facility] Body weight 1596.8 [oz_av] 1596.8 [oz_av] ATHEN A ([facility]) Diastolic blood pressure 71 mm[Hg] 71 mm[Hg] PINKY ([facility]) Body height 62 [in_i] 62 [in_i] PINKY ([facility]) Body mass index (BMI) [Ratio] 18.3 kg/m2 18.3 k g/m2 PINKY ([facility]) Systolic blood pressure 104 mm[Hg] 104 mm[Hg] A THENA ([facility]) Body weight 1596.8 [oz_av] 1596.8 [oz_av] ATHEN A ([facility]) Diastolic blood pressure 71 mm[Hg] 71 mm[Hg] PINKY ([facility]) Body height 62 [in_i] 62 [in_i] PINKY ([facility]) Body mass index (BMI) [Ratio] 18.3 kg/m2 18.3 k g/m2 PINKY ([facility]) Systolic blood pressure 104 mm[Hg] 104 mm[Hg] A [facility] ([facility]) Body weight 1596.8 [oz_av] 1596.8 [oz_av] ATHEN A ([facility]) Diastolic blood pressure 71 mm[Hg] 71 mm[Hg] PINKY ([facility]) Body height 62 [in_i] 62 [in_i] PINKY ([facility]) Body mass index (BMI) [Ratio] 18.3 kg/m2 18.3 k g/m2 PINKY ([facility]) Systolic blood pressure 104 mm[Hg] 104 mm[Hg] A [facility] ([facility]) Body weight 1596.8 [oz_av] 1596.8 [oz_av] ATHEN A ([facility]) Diastolic blood pressure 71 mm[Hg] 71 mm[Hg] PINKY ([facility]) Body height 62 [in_i] 62 [in_i] PINKY ([facility]) Body mass index (BMI) [Ratio] 18.3 kg/m2 18.3 k g/m2 PINKY ([facility]) Systolic blood pressure 104 mm[Hg] 104 mm[Hg] [facility] Body weight 1596.8 [oz_av] 1596.8 [oz_av] [place] [facility] [place] [facility] [facility] Diastolic blood pressure 71 mm[Hg] 71 mm[Hg] PINK[facility] ([facility]) Body height 62 [in_i] 62 [in_i] [facility] ([facility]) Body mass index (BMI) [Ratio] 18.3 kg/m2 18.3 k g/m2 [facility] ([facility]) Systolic blood pressure 104 mm[Hg] 104 mm[Hg] A THENA ([facility]) Body weight 1596.8 [oz_av] 1596.8 [oz_av] ATHEN A ([facility]) Diastolic blood pressure 71 mm[Hg] 71 mm[Hg] [facility] ([facility]) Body height 62 [in_i] 62 [in_i] [facility] ([facility]) Body mass index (BMI) [Ratio] 18.3 kg/m2 18.3 k g/m2 [facility] ([facility]) Systolic blood pressure 104 mm[Hg] 104 mm[Hg] [facility] Body weight 1596.8 [oz_av] 1596.8 [oz_av] ATHEN A ([facility]) Diastolic blood pressure 71 mm[Hg] 71 mm[Hg] [facility] ([facility]) Body height 62 [in_i] 62 [in_i] [facility] ([facility]) Body mass index (BMI) [Ratio] 18.3 kg/m2 18.3 k g/m2 [facility] ([facility]) Systolic blood pressure 104 mm[Hg] 104 mm[Hg] A THENA ([facility]) Body weight 1596.8 [oz_av] 1596.8 [oz_av] ATHEN A ([facility]) Diastolic blood pressure 89 mm[Hg] 89 mm[Hg] PINK[facility] ([facility]) Body height 62 [in_i] 62 [in_i] [facility] ([facility]) Body mass index (BMI) [Ratio] 18.4 kg/m2 18.4 k g/m2 [facility] ([facility]) Systolic blood pressure 132 mm[Hg] 132 mm[Hg] [facility] Body weight 1608 [oz_av] 1608 [oz_av] PINKY ([facility]) Body height 62 [in_i] 62 [in_i] P[facility] ([facility]) Body mass index (BMI) [Ratio] 18.4 kg/m2 18.4 k g/m2 [facility] ([facility]) Systolic blood pressure 132 mm[Hg] 132 mm[Hg] A THENA ([facility]) Body weight 1608 [oz_av] 1608 [oz_av] PINKY ([facility]) Diastolic blood pressure 89 mm[Hg] 89 mm[Hg] [facility] ([facility]) Diastolic blood pressure 89 mm[Hg] 89 mm[Hg] [facility] ([facility]) Body height 62 [in_i] 62 [in_i] [facility] ([facility]) Body mass index (BMI) [Ratio] 18.4 kg/m2 18.4 k g/m2 [facility] ([facility]) Systolic blood pressure 132 mm[Hg] 132 mm[Hg] A THENA ([facility]) Body weight 1608 [oz_av] 1608 [oz_av] [facility] ([facility]) Diastolic blood pressure 89 mm[Hg] 89 mm[Hg] [facility] ([facility]) Body height 62 [in_i] 62 [in_i] [facility] ([facility]) Body mass index (BMI) [Ratio] 18.4 kg/m2 18.4 k g/m2 [facility] ([facility]) Systolic blood pressure 132 mm[Hg] 132 mm[Hg] A THENA ([facility]) Body weight 1608 [oz_av] 1608 [oz_av] P[facility] ([facility]) Diastolic blood pressure 89 mm[Hg] 89 mm[Hg] [facility] ([facility]) Body weight 1608 [oz_av] 1608 [oz_av] [facility] ([facility]) Body height 62 [in_i] 62 [in_i] [facility] ([facility]) Body mass index (BMI) [Ratio] 18.4 kg/m2 18.4 k g/m2 [facility] ([facility]) Systolic blood pressure 132 mm[Hg] 132 mm[Hg] A THENA ([facility]) Diastolic blood pressure 89 mm[Hg] 89 mm[Hg] [facility] ([facility]) Body height 62 [in_i] 62 [in_i] [facility] ([facility]) Body mass index (BMI) [Ratio] 18.4 kg/m2 18.4 k g/m2 [facility] ([facility]) Systolic blood pressure 132 mm[Hg] 132 mm[Hg] A THENA ([facility]) Body weight 1608 [oz_av] 1608 [oz_av] PINK[facility] ([facility]) Diastolic blood pressure 89 mm[Hg] 89 mm[Hg] [facility] ([facility]) Body height 62 [in_i] 62 [in_i] [facility] ([facility]) Body mass index (BMI) [Ratio] 18.4 kg/m2 18.4 k g/m2 [facility] ([facility]) Systolic blood pressure 132 mm[Hg] 132 mm[Hg] A THENA ([facility]) Body weight 1608 [oz_av] 1608 [oz_av] PINKY ([facility]) Diastolic blood pressure 89 mm[Hg] 89 mm[Hg] P[facility] ([facility]) Body height 62 [in_i] 62 [in_i] [facility] ([facility]) Body mass index (BMI) [Ratio] 18.4 kg/m2 18.4 k g/m2 [facility] ([facility]) Systolic blood pressure 132 mm[Hg] 132 mm[Hg] A THENA ([facility]) Body weight 1608 [oz_av] 1608 [oz_av] P[facility] ([facility]) Diastolic blood pressure 89 mm[Hg] 89 mm[Hg] [facility] ([facility]) Body height 62 [in_i] 62 [in_i] P[facility] ([facility]) Body mass index (BMI) [Ratio] 18.4 kg/m2 18.4 k g/m2 [facility] ([facility]) Systolic blood pressure 132 mm[Hg] 132 mm[Hg] A THENA ([facility]) Body weight 1608 [oz_av] 1608 [oz_av] P[facility] ([facility]) Diastolic blood pressure 89 mm[Hg] 89 mm[Hg] [facility] ([facility]) Body height 62 [in_i] 62 [in_i] [facility] ([facility]) Body mass index (BMI) [Ratio] 18.4 kg/m2 18.4 k g/m2 [facility] ([facility]) Systolic blood pressure 132 mm[Hg] 132 mm[Hg] A THENA ([facility]) Body weight 1608 [oz_av] 1608 [oz_av] [facility] ([facility]) Diastolic blood pressure 89 mm[Hg] 89 mm[Hg] [facility] ([facility]) Body height 62 [in_i] 62 [in_i] [facility] ([facility]) Body mass index (BMI) [Ratio] 18.4 kg/m2 18.4 k g/m2 [facility] ([facility]) Systolic blood pressure 132 mm[Hg] 132 mm[Hg] A THENA ([facility]) Body weight 1608 [oz_av] 1608 [oz_av] P[facility] ([facility]) Diastolic blood pressure 89 mm[Hg] 89 mm[Hg] P[facility] ([facility]) Body height 62 [in_i] 62 [in_i] [facility] ([facility]) Body mass index (BMI) [Ratio] 18.4 kg/m2 18.4 k g/m2 [facility] ([facility]) Systolic blood pressure 132 mm[Hg] 132 mm[Hg] A THENA ([facility]) Body weight 1608 [oz_av] 1608 [oz_av] P[facility] ([facility]) Diastolic blood pressure 89 mm[Hg] 89 mm[Hg] P[facility] ([facility]) Body height 62 [in_i] 62 [in_i] [facility] ([facility]) Body mass index (BMI) [Ratio] 18.4 kg/m2 18.4 k g/m2 [facility] ([facility]) Systolic blood pressure 132 mm[Hg] 132 mm[Hg] A THENA ([facility]) Body weight 1608 [oz_av] 1608 [oz_av] PINK[facility] ([facility]) Diastolic blood pressure 89 mm[Hg] 89 mm[Hg] P[facility] ([facility]) Body height 62 [in_i] 62 [in_i] [facility] ([facility]) Body mass index (BMI) [Ratio] 18.4 kg/m2 18.4 k g/m2 [facility] ([facility]) Systolic blood pressure 132 mm[Hg] 132 mm[Hg] A THENA ([facility]) Body weight 1608 [oz_av] 1608 [oz_av] [facility] ([facility]) Diastolic blood pressure 89 mm[Hg] 89 mm[Hg] [facility] ([facility]) Body height 62 [in_i] 62 [in_i] [facility] ([facility]) Body mass index (BMI) [Ratio] 18.4 kg/m2 18.4 k g/m2 [facility] ([facility]) Systolic blood pressure 132 mm[Hg] 132 mm[Hg] A THENA ([facility]) Body weight 1608 [oz_av] 1608 [oz_av] [facility] ([facility]) Diastolic blood pressure 89 mm[Hg] 89 mm[Hg] P[facility] ([facility]) Body height 62 [in_i] 62 [in_i] [facility] ([facility]) Body mass index (BMI) [Ratio] 18.4 kg/m2 18.4 k g/m2 [facility] ([facility]) Systolic blood pressure 132 mm[Hg] 132 mm[Hg] A THENA ([facility]) Body weight 1608 [oz_av] 1608 [oz_av] [facility] ([facility]) Diastolic blood pressure 89 mm[Hg] 89 mm[Hg] P[facility] ([facility]) Body height 62 [in_i] 62 [in_i] [facility] ([facility]) Body mass index (BMI) [Ratio] 18.4 kg/m2 18.4 k g/m2 [facility] ([facility]) Systolic blood pressure 132 mm[Hg] 132 mm[Hg] A THENA ([facility]) Body weight 1608 [oz_av] 1608 [oz_av] [facility] ([facility]) Diastolic blood pressure 77 mm[Hg] 77 mm[Hg] [facility] ([facility]) Body height 62 [in_i] 62 [in_i] [facility] ([facility]) Body mass index (BMI) [Ratio] 18.9 kg/m2 18.9 k g/m2 [facility] ([facility]) Systolic blood pressure 108 mm[Hg] 108 mm[Hg] A THENA ([facility]) Body weight 1656 [oz_av] 1656 [oz_av] PINKY ([facility]) Diastolic blood pressure 77 mm[Hg] 77 mm[Hg] P[facility] ([facility]) Body height 62 [in_i] 62 [in_i] P[facility] ([facility]) Body mass index (BMI) [Ratio] 18.9 kg/m2 18.9 k g/m2 [facility] ([facility]) Systolic blood pressure 108 mm[Hg] 108 mm[Hg] A THENA ([facility]) Body weight 1656 [oz_av] 1656 [oz_av] PINK[facility] ([facility]) Diastolic blood pressure 77 mm[Hg] 77 mm[Hg] P[facility] ([facility]) Body height 62 [in_i] 62 [in_i] P[facility] ([facility]) Body mass index (BMI) [Ratio] 18.9 kg/m2 18.9 k g/m2 [facility] ([facility]) Systolic blood pressure 108 mm[Hg] 108 mm[Hg] [facility] Body weight 1656 [oz_av] 1656 [oz_av] PINKY ([facility]) Diastolic blood pressure 77 mm[Hg] 77 mm[Hg] P[facility] ([facility]) Body height 62 [in_i] 62 [in_i] [facility] ([facility]) Body mass index (BMI) [Ratio] 18.9 kg/m2 18.9 k g/m2 [facility] ([facility]) Systolic blood pressure 108 mm[Hg] 108 mm[Hg] [facility]) Body weight 1656 [oz_av] 1656 [oz_av] PINKY ([facility]) Body mass index (BMI) [Ratio] 18.9 kg/m2 18.9 k g/m2 [facility] ([facility]) Diastolic blood pressure 77 mm[Hg] 77 mm[Hg] P[facility] ([facility]) Systolic blood pressure 108 mm[Hg] 108 mm[Hg] A THENA ([facility]) Body height 62 [in_i] 62 [in_i] [facility] ([facility]) Body weight 1656 [oz_av] 1656 [oz_av] P[facility] ([facility]) Diastolic blood pressure 77 mm[Hg] 77 mm[Hg] PINK[facility] ([facility]) Body height 62 [in_i] 62 [in_i] P[facility] ([facility]) Body mass index (BMI) [Ratio] 18.9 kg/m2 18.9 k g/m2 [facility] ([facility]) Systolic blood pressure 108 mm[Hg] 108 mm[Hg] A THENA ([facility]) Body weight 1656 [oz_av] 1656 [oz_av] [facility] ([facility]) Diastolic blood pressure 77 mm[Hg] 77 mm[Hg] P[facility] ([facility]) Body height 62 [in_i] 62 [in_i] P[facility] ([facility]) Body mass index (BMI) [Ratio] 18.9 kg/m2 18.9 k g/m2 [facility] ([facility]) Systolic blood pressure 108 mm[Hg] 108 mm[Hg] A THENA ([facility]) Body weight 1656 [oz_av] 1656 [oz_av] PINKY ([facility]) Diastolic blood pressure 77 mm[Hg] 77 mm[Hg] PINK[facility] ([facility]) Body height 62 [in_i] 62 [in_i] PINK[facility] ([facility]) Body mass index (BMI) [Ratio] 18.9 kg/m2 18.9 k g/m2 P[facility] ([facility]) Systolic blood pressure 108 mm[Hg] 108 mm[Hg] A THENA ([facility]) Body weight 1656 [oz_av] 1656 [oz_av] PINKY ([facility]) Diastolic blood pressure 77 mm[Hg] 77 mm[Hg] PINKY ([facility]) Body height 62 [in_i] 62 [in_i] PINK[facility] ([facility]) Body mass index (BMI) [Ratio] 18.9 kg/m2 18.9 k g/m2 [facility] ([facility]) Systolic blood pressure 108 mm[Hg] 108 mm[Hg] A THENA ([facility]) Body weight 1656 [oz_av] 1656 [oz_av] PINKY ([facility]) Diastolic blood pressure 77 mm[Hg] 77 mm[Hg] PINK[facility] ([facility]) Body height 62 [in_i] 62 [in_i] PINK[facility] ([facility]) Body mass index (BMI) [Ratio] 18.9 kg/m2 18.9 k g/m2 [facility] ([facility]) Systolic blood pressure 108 mm[Hg] 108 mm[Hg] [facility] Body weight 1656 [oz_av] 1656 [oz_av] PINKY ([facility]) Diastolic blood pressure 77 mm[Hg] 77 mm[Hg] PINK[facility] ([facility]) Body height 62 [in_i] 62 [in_i] PINK[facility] ([facility]) Body mass index (BMI) [Ratio] 18.9 kg/m2 18.9 k g/m2 [facility] ([facility]) Systolic blood pressure 108 mm[Hg] 108 mm[Hg] [facility] Body weight 1656 [oz_av] 1656 [oz_av] PINKY ([facility]) Systolic blood pressure 108 mm[Hg] 108 mm[Hg] [facility]) Diastolic blood pressure 77 mm[Hg] 77 mm[Hg] PINKY ([facility]) Body height 62 [in_i] 62 [in_i] P[facility] ([facility]) Body mass index (BMI) [Ratio] 18.9 kg/m2 18.9 k g/m2 [facility] ([facility]) Body weight 1656 [oz_av] 1656 [oz_av] PINKY ([facility]) Body mass index (BMI) [Ratio] 18.9 kg/m2 18.9 k g/m2 P[facility] ([facility]) Body height 62 [in_i] 62 [in_i] PINK[facility] ([facility]) Systolic blood pressure 108 mm[Hg] 108 mm[Hg] A THENA ([facility]) Body weight 1656 [oz_av] 1656 [oz_av] PINKY ([facility]) Diastolic blood pressure 77 mm[Hg] 77 mm[Hg] PINK[facility] ([facility]) Body mass index (BMI) [Ratio] 18.9 kg/m2 18.9 k g/m2 P[facility] ([facility]) Systolic blood pressure 108 mm[Hg] 108 mm[Hg] [facility] Diastolic blood pressure 77 mm[Hg] 77 mm[Hg] PINKY ([facility]) Body weight 1656 [oz_av] 1656 [oz_av] PINKY ([facility]) Body height 62 [in_i] 62 [in_i] PINKY ([facility]) Diastolic blood pressure 77 mm[Hg] 77 mm[Hg] P[facility] ([facility]) Body height 62 [in_i] 62 [in_i] PINK[facility] ([facility]) Body mass index (BMI) [Ratio] 18.9 kg/m2 18.9 k g/m2 [facility] ([facility]) Systolic blood pressure 108 mm[Hg] 108 mm[Hg] [facility] Body weight 1656 [oz_av] 1656 [oz_av] PINKY ([facility]) Diastolic blood pressure 77 mm[Hg] 77 mm[Hg] PINK[facility] ([facility]) Body height 62 [in_i] 62 [in_i] [facility] ([facility]) Body mass index (BMI) [Ratio] 18.9 kg/m2 18.9 k g/m2 [facility] ([facility]) Systolic blood pressure 108 mm[Hg] 108 mm[Hg] A THENA ([facility]) Body weight 1656 [oz_av] 1656 [oz_av] PINKY ([facility]) Diastolic blood pressure 77 mm[Hg] 77 mm[Hg] P[facility] ([facility]) Body height 62 [in_i] 62 [in_i] P[facility] ([facility]) Body mass index (BMI) [Ratio] 18.9 kg/m2 18.9 k g/m2 [facility] ([facility]) Systolic blood pressure 108 mm[Hg] 108 mm[Hg] A THENA ([facility]) Body weight 1656 [oz_av] 1656 [oz_av] PINKY ([facility]) Diastolic blood pressure 77 mm[Hg] 77 mm[Hg] P[facility] ([facility]) Body height 62 [in_i] 62 [in_i] [facility] ([facility]) Body mass index (BMI) [Ratio] 18.9 kg/m2 18.9 k g/m2 [facility] ([facility]) Systolic blood pressure 108 mm[Hg] 108 mm[Hg] A THENA ([facility]) Body weight 1656 [oz_av] 1656 [oz_av] PINK[facility] ([facility]) Diastolic blood pressure 70 mm[Hg] 70 mm[Hg] PINK[facility] ([facility]) Body height 62 [in_i] 62 [in_i] [facility] ([facility]) Body mass index (BMI) [Ratio] 18.5 kg/m2 18.5 k g/m2 [facility] ([facility]) Body weight 1622 [oz_av] 1622 [oz_av] P[facility] ([facility]) Systolic blood pressure 102 mm[Hg] 102 mm[Hg] [facility] Diastolic blood pressure 70 mm[Hg] 70 mm[Hg] PINKY ([facility]) Body weight 1622 [oz_av] 1622 [oz_av] [facility] ([facility]) Body mass index (BMI) [Ratio] 18.5 kg/m2 18.5 k g/m2 P[facility] ([facility]) Systolic blood pressure 102 mm[Hg] 102 mm[Hg] A THENA ([facility]) Body height 62 [in_i] 62 [in_i] PINK[facility] ([facility]) Diastolic blood pressure 70 mm[Hg] 70 mm[Hg] [facility] ([facility]) Body height 62 [in_i] 62 [in_i] [facility] ([facility]) Body mass index (BMI) [Ratio] 18.5 kg/m2 18.5 k g/m2 [facility] ([facility]) Systolic blood pressure 102 mm[Hg] 102 mm[Hg] A THENA ([facility]) Body weight 1622 [oz_av] 1622 [oz_av] [facility] ([facility]) Diastolic blood pressure 70 mm[Hg] 70 mm[Hg] P[facility] ([facility]) Body height 62 [in_i] 62 [in_i] [facility] ([facility]) Body mass index (BMI) [Ratio] 18.5 kg/m2 18.5 k g/m2 [facility] ([facility]) Systolic blood pressure 102 mm[Hg] 102 mm[Hg] A THENA ([facility]) Body weight 1622 [oz_av] 1622 [oz_av] [facility]INK[facility] ([facility]) Diastolic blood pressure 70 mm[Hg] 70 mm[Hg] P[facility] ([facility]) Body height 62 [in_i] 62 [in_i] [facility] ([facility]) Body mass index (BMI) [Ratio] 18.5 kg/m2 18.5 k g/m2 [facility] ([facility]) Systolic blood pressure 102 mm[Hg] 102 mm[Hg] A THENA ([facility]) Body weight 1622 [oz_av] 1622 [oz_av] [facility] ([facility]) Diastolic blood pressure 70 mm[Hg] 70 mm[Hg] [facility] ([facility]) Body mass index (BMI) [Ratio] 18.5 kg/m2 18.5 k g/m2 [facility] ([facility]) Body weight 1622 [oz_av] 1622 [oz_av] [facility] ([facility]) Body height 62 [in_i] 62 [in_i] [facility] ([facility]) Systolic blood pressure 102 mm[Hg] 102 mm[Hg] A THENA ([facility]) Diastolic blood pressure 70 mm[Hg] 70 mm[Hg] [facility] ([facility]) Body height 62 [in_i] 62 [in_i] [facility] ([facility]) Body mass index (BMI) [Ratio] 18.5 kg/m2 18.5 k g/m2 [facility] ([facility]) Systolic blood pressure 102 mm[Hg] 102 mm[Hg] A THENA ([facility]) Body weight 1622 [oz_av] 1622 [oz_av] [facility]INK[facility] ([facility]) Diastolic blood pressure 70 mm[Hg] 70 mm[Hg] P[facility] ([facility]) Body height 62 [in_i] 62 [in_i] [facility] ([facility]) Body mass index (BMI) [Ratio] 18.5 kg/m2 18.5 k g/m2 [facility] ([facility]) Systolic blood pressure 102 mm[Hg] 102 mm[Hg] A THENA ([facility]) Body weight 1622 [oz_av] 1622 [oz_av] [facility] ([facility]) Diastolic blood pressure 70 mm[Hg] 70 mm[Hg] P[facility] ([facility]) Body height 62 [in_i] 62 [in_i] [facility] ([facility]) Body mass index (BMI) [Ratio] 18.5 kg/m2 18.5 k g/m2 [facility] ([facility]) Systolic blood pressure 102 mm[Hg] 102 mm[Hg] A THENA ([facility]) Body weight 1622 [oz_av] 1622 [oz_av] [facility] ([facility]) Diastolic blood pressure 70 mm[Hg] 70 mm[Hg] [facility] ([facility]) Body height 62 [in_i] 62 [in_i] [facility] ([facility]) Body mass index (BMI) [Ratio] 18.5 kg/m2 18.5 k g/m2 [facility] ([facility]) Systolic blood pressure 102 mm[Hg] 102 mm[Hg] A THENA ([facility]) Body weight 1622 [oz_av] 1622 [oz_av] [facility] ([facility]) Diastolic blood pressure 70 mm[Hg] 70 mm[Hg] [facility] ([facility]) Body height 62 [in_i] 62 [in_i] [facility] ([facility]) Body mass index (BMI) [Ratio] 18.5 kg/m2 18.5 k g/m2 [facility] ([facility]) Systolic blood pressure 102 mm[Hg] 102 mm[Hg] A THENA ([facility]) Body weight 1622 [oz_av] 1622 [oz_av] [facility] ([facility]) Diastolic blood pressure 70 mm[Hg] 70 mm[Hg] [facility] ([facility]) Body height 62 [in_i] 62 [in_i] [facility] ([facility]) Body mass index (BMI) [Ratio] 18.5 kg/m2 18.5 k g/m2 [facility] ([facility]) Systolic blood pressure 102 mm[Hg] 102 mm[Hg] A THENA ([facility]) Body weight 1622 [oz_av] 1622 [oz_av] [facility] ([facility]) Body weight 1622 [oz_av] 1622 [oz_av] [facility] ([facility]) Diastolic blood pressure 70 mm[Hg] 70 mm[Hg] [facility] ([facility]) Body height 62 [in_i] 62 [in_i] [facility] ([facility]) Body mass index (BMI) [Ratio] 18.5 kg/m2 18.5 k g/m2 [facility] ([facility]) Systolic blood pressure 102 mm[Hg] 102 mm[Hg] [facility] Diastolic blood pressure 70 mm[Hg] 70 mm[Hg] [facility] ([facility]) Body height 62 [in_i] 62 [in_i] [facility] ([facility]) Body mass index (BMI) [Ratio] 18.5 kg/m2 18.5 k g/m2 [facility] ([facility]) Systolic blood pressure 102 mm[Hg] 102 mm[Hg] A THENA ([facility]) Body weight 1622 [oz_av] 1622 [oz_av] [facility] ([facility]) Diastolic blood pressure 70 mm[Hg] 70 mm[Hg] [facility] ([facility]) Body height 62 [in_i] 62 [in_i] [facility] ([facility]) Body mass index (BMI) [Ratio] 18.5 kg/m2 18.5 k g/m2 [facility] ([facility]) Systolic blood pressure 102 mm[Hg] 102 mm[Hg] A THENA ([facility]) Body weight 1622 [oz_av] 1622 [oz_av] [facility] ([facility]) Diastolic blood pressure 70 mm[Hg] 70 mm[Hg] [facility] ([facility]) Body height 62 [in_i] 62 [in_i] [facility] ([facility]) Body mass index (BMI) [Ratio] 18.5 kg/m2 18.5 k g/m2 [facility] ([facility]) Systolic blood pressure 102 mm[Hg] 102 mm[Hg] A THENA ([facility]) Body weight 1622 [oz_av] 1622 [oz_av] [facility] ([facility]) Diastolic blood pressure 70 mm[Hg] 70 mm[Hg] [facility] ([facility]) Body height 62 [in_i] 62 [in_i] [facility] ([facility]) Body mass index (BMI) [Ratio] 18.5 kg/m2 18.5 k g/m2 [facility] ([facility]) Systolic blood pressure 102 mm[Hg] 102 mm[Hg] [facility] Body weight 1622 [oz_av] 1622 [oz_av] [facility] ([facility]) Diastolic blood pressure 70 mm[Hg] 70 mm[Hg] [facility] ([facility]) Body height 62 [in_i] 62 [in_i] [facility] ([facility]) Body mass index (BMI) [Ratio] 18.5 kg/m2 18.5 k g/m2 [facility] ([facility]) Systolic blood pressure 102 mm[Hg] 102 mm[Hg] [facility] Body weight 1622 [oz_av] 1622 [oz_av] [facility] ([facility]) Systolic blood pressure 102 mm[Hg] 102 mm[Hg] [facility] Body weight 1622 [oz_av] 1622 [oz_av] [facility] ([facility]) Diastolic blood pressure 70 mm[Hg] 70 mm[Hg] [facility] ([facility]) Body height 62 [in_i] 62 [in_i] [facility] ([facility]) Body mass index (BMI) [Ratio] 18.5 kg/m2 18.5 k g/m2 [facility] ([facility]) Diastolic blood pressure 85 mm[Hg] 85 mm[Hg] [facility] ([facility]) Body weight 1544 [oz_av] 1544 [oz_av] [facility] ([facility]) Body height 62 [in_i] 62 [in_i] [facility] ([facility]) Body mass index (BMI) [Ratio] 17.6 kg/m2 17.6 k g/m2 [facility] ([facility]) Systolic blood pressure 141 mm[Hg] 141 mm[Hg] [facility] Diastolic blood pressure 85 mm[Hg] 85 mm[Hg] [facility] ([facility]) Body height 62 [in_i] 62 [in_i] [facility] ([facility]) Body mass index (BMI) [Ratio] 17.6 kg/m2 17.6 k g/m2 [facility] ([facility]) Systolic blood pressure 141 mm[Hg] 141 mm[Hg] A [facility] ([facility]) Body weight 1544 [oz_av] 1544 [oz_av] [facility] ([facility]) Diastolic blood pressure 85 mm[Hg] 85 mm[Hg] [facility] ([facility]) Body height 62 [in_i] 62 [in_i] [facility] ([facility]) Body mass index (BMI) [Ratio] 17.6 kg/m2 17.6 k g/m2 [facility] ([facility]) Systolic blood pressure 141 mm[Hg] 141 mm[Hg] A THENA ([facility]) Body weight 1544 [oz_av] 1544 [oz_av] PINKY ([facility]) Systolic blood pressure 141 mm[Hg] 141 mm[Hg] A THENA ([facility]) Body weight 1544 [oz_av] 1544 [oz_av] PINKY ([facility]) Diastolic blood pressure 85 mm[Hg] 85 mm[Hg] PINKY ([facility]) Body height 62 [in_i] 62 [in_i] PINKY ([facility]) Body mass index (BMI) [Ratio] 17.6 kg/m2 17.6 k g/m2 PINKY ([facility]) Diastolic blood pressure 85 mm[Hg] 85 mm[Hg] PINKY ([facility]) Diastolic blood pressure 85 mm[Hg] 85 mm[Hg] PINKY ([facility]) Body height 62 [in_i] 62 [in_i] PINKY ([facility]) Body mass index (BMI) [Ratio] 17.6 kg/m2 17.6 k g/m2 PINKY ([facility]) Systolic blood pressure 141 mm[Hg] 141 mm[Hg] A THENA ([facility]) Body weight 1544 [oz_av] 1544 [oz_av] PINKY ([facility]) Body height 62 [in_i] 62 [in_i] PINKY ([facility]) Body mass index (BMI) [Ratio] 17.6 kg/m2 17.6 k g/m2 PINKY ([facility]) Systolic blood pressure 141 mm[Hg] 141 mm[Hg] A THENA ([facility]) Body weight 1544 [oz_av] 1544 [oz_av] PINKY ([facility]) Diastolic blood pressure 85 mm[Hg] 85 mm[Hg] PINKY ([facility]) Body height 62 [in_i] 62 [in_i] PINKY ([facility]) Body mass index (BMI) [Ratio] 17.6 kg/m2 17.6 k g/m2 PINKY ([facility]) Systolic blood pressure 141 mm[Hg] 141 mm[Hg] A THENA ([facility]) Body weight 1544 [oz_av] 1544 [oz_av] PINKY ([facility]) Body height 62 [in_i] 62 [in_i] PINKY ([facility]) Systolic blood pressure 141 mm[Hg] 141 mm[Hg] A THENA ([facility]) Diastolic blood pressure 85 mm[Hg] 85 mm[Hg] PINKY ([facility]) Body mass index (BMI) [Ratio] 17.6 kg/m2 17.6 k g/m2 PINKY ([facility]) Body weight 1544 [oz_av] 1544 [oz_av] PINKY ([facility]) Diastolic blood pressure 85 mm[Hg] 85 mm[Hg] PINKY ([facility]) Body height 62 [in_i] 62 [in_i] PINKY ([facility]) Body mass index (BMI) [Ratio] 17.6 kg/m2 17.6 k g/m2 PINKY ([facility]) Systolic blood pressure 141 mm[Hg] 141 mm[Hg] A THENA ([facility]) Body weight 1544 [oz_av] 1544 [oz_av] PINKY ([facility]) Diastolic blood pressure 85 mm[Hg] 85 mm[Hg] PINKY ([facility]) Body height 62 [in_i] 62 [in_i] PINKY ([facility]) Body mass index (BMI) [Ratio] 17.6 kg/m2 17.6 k g/m2 PINKY ([facility]) Systolic blood pressure 141 mm[Hg] 141 mm[Hg] A THENA ([facility]) Body weight 1544 [oz_av] 1544 [oz_av] PINKY ([facility]) Diastolic blood pressure 85 mm[Hg] 85 mm[Hg] PINKY ([facility]) Body height 62 [in_i] 62 [in_i] PINKY ([facility]) Body mass index (BMI) [Ratio] 17.6 kg/m2 17.6 k g/m2 PINKY ([facility]) Systolic blood pressure 141 mm[Hg] 141 mm[Hg] A THENA ([facility]) Body weight 1544 [oz_av] 1544 [oz_av] PINKY ([facility]) Diastolic blood pressure 85 mm[Hg] 85 mm[Hg] PINKY ([facility]) Body height 62 [in_i] 62 [in_i] PINKY ([facility]) Body mass index (BMI) [Ratio] 17.6 kg/m2 17.6 k g/m2 PINKY ([facility]) Systolic blood pressure 141 mm[Hg] 141 mm[Hg] A THENA ([facility]) Body weight 1544 [oz_av] 1544 [oz_av] PINKY ([facility]) Body weight 1544 [oz_av] 1544 [oz_av] PINKY ([facility]) Diastolic blood pressure 85 mm[Hg] 85 mm[Hg] PINKY ([facility]) Body height 62 [in_i] 62 [in_i] PINKY ([facility]) Body mass index (BMI) [Ratio] 17.6 kg/m2 17.6 k g/m2 PINKY ([facility]) Systolic blood pressure 141 mm[Hg] 141 mm[Hg] A [facility]) Body height 62 [in_i] 62 [in_i] PINKY ([facility]) Body mass index (BMI) [Ratio] 17.6 kg/m2 17.6 k g/m2 PINKY ([facility]) Systolic blood pressure 141 mm[Hg] 141 mm[Hg] A [facility]) Body weight 1544 [oz_av] 1544 [oz_av] PINKY ([facility]) Diastolic blood pressure 85 mm[Hg] 85 mm[Hg] PINKY ([facility]) Diastolic blood pressure 85 mm[Hg] 85 mm[Hg] PINKY ([facility]) Body height 62 [in_i] 62 [in_i] PINKY ([facility]) Body mass index (BMI) [Ratio] 17.6 kg/m2 17.6 k g/m2 PINKY ([facility]) Systolic blood pressure 141 mm[Hg] 141 mm[Hg] A [facility]) Body weight 1544 [oz_av] 1544 [oz_av] PINKY ([facility]) Diastolic blood pressure 85 mm[Hg] 85 mm[Hg] PINKY ([facility]) Body height 62 [in_i] 62 [in_i] PINKY ([facility]) Body mass index (BMI) [Ratio] 17.6 kg/m2 17.6 k g/m2 PINKY ([facility]) Systolic blood pressure 141 mm[Hg] 141 mm[Hg] A THENA ([facility]) Body weight 1544 [oz_av] 1544 [oz_av] PINKY ([facility]) Diastolic blood pressure 85 mm[Hg] 85 mm[Hg] PINKY ([facility]) Body height 62 [in_i] 62 [in_i] PINKY ([facility]) Body weight 1544 [oz_av] 1544 [oz_av] PINKY ([facility]) Body mass index (BMI) [Ratio] 17.6 kg/m2 17.6 k g/m2 PINKY ([facility]) Systolic blood pressure 141 mm[Hg] 141 mm[Hg] A [facility] ([facility]) Diastolic blood pressure 85 mm[Hg] 85 mm[Hg] PINKY ([facility]) Body height 62 [in_i] 62 [in_i] PINKY ([facility]) Body mass index (BMI) [Ratio] 17.6 kg/m2 17.6 k g/m2 PINKY ([facility]) Systolic blood pressure 141 mm[Hg] 141 mm[Hg] A THENA ([facility]) Body weight 1544 [oz_av] 1544 [oz_av] PINKY ([facility]) Diastolic blood pressure 85 mm[Hg] 85 mm[Hg] PINKY ([facility]) Body height 62 [in_i] 62 [in_i] PINKY ([facility]) Body mass index (BMI) [Ratio] 17.6 kg/m2 17.6 k g/m2 PINKY ([facility]) Systolic blood pressure 141 mm[Hg] 141 mm[Hg] A THENA ([facility]) Body weight 1544 [oz_av] 1544 [oz_av] PINKY ([facility]) Diastolic blood pressure 85 mm[Hg] 85 mm[Hg] PINKY ([facility]) Body height 62 [in_i] 62 [in_i] PINKY ([facility]) Body mass index (BMI) [Ratio] 17.6 kg/m2 17.6 k g/m2 PINKY ([facility]) Systolic blood pressure 141 mm[Hg] 141 mm[Hg] A THENA ([facility]) Body weight 1544 [oz_av] 1544 [oz_av] PINKY ([facility]) Diastolic blood pressure 85 mm[Hg] 85 mm[Hg] PINKY ([facility]) Body height 62 [in_i] 62 [in_i] PINKY ([facility]) Body mass index (BMI) [Ratio] 17.6 kg/m2 17.6 k g/m2 PINKY ([facility]) Systolic blood pressure 141 mm[Hg] 141 mm[Hg] A THENA ([facility]) Body weight 1544 [oz_av] 1544 [oz_av] PINKY ([facility]) Systolic blood pressure 135 mm[Hg] 135 mm[Hg] G [facility] Diastolic blood pressure 94 mm[Hg] 94 mm[Hg] [facility] Heart rate 90 /min 90 /min [facility] Body temperature 37.22 Maria M 37.22 Maria M [facility] Respiratory rate 20 /min 20 /min [facility] Body height 157.5 cm 157.5 cm [facility] Body weight 41.731 kg 41.731 kg [facility] Oxygen saturation in Arterial blood by Pulse oximetry 98 % 98 % [facility] ID Date Data Source [id number] 12/06/2019 08:08:36 PM [facility] Name Value Range Interpretation Code Description Data Source(s) Body height Measured 62 in 62 in [facility] Patient Treatment Plan of Care Planned Activity Planned Date Details Description Data Source (s) valacyclovir 1000 MG Oral Tablet PINKY ([facility]) Tab-A-Carlo 400 mcg tablet AT [facility]) Polyethylene Glycol 400 4 MG/ML / Propyl odessa glycol 3 MG/ML Ophthalmic Solution [Systane] PINKY ([facility]) Sulfamethoxazole 800 MG / Trimethoprim 160 MG Oral Tablet PINKY ([facility]) quetiapine 50 MG Oral Tablet PINKY ([facility]) quetiapine 25 MG Oral Tablet PINKY ([facility]) Prednisone 20 MG Oral Tablet PINKY ([facility]) Potassium Chloride 20 MEQ Extended Release Oral Tablet IPNKY ([facility]) Ondansetron 4 MG Disintegrating Oral Tablet PINKY ([facility]) Omeprazole 20 MG Delayed Release Oral Capsule PINKY ([facility]) 12 HR Guaifenesin 600 MG Extended Release Oral Tablet [Mucinex] PINKY ([facility]) Metoclopramide 5 MG Oral Tablet PINKY ([facility]) meloxicam 7.5 MG Oral Tablet PINKY ([facility]) imiquimod 50 MG/ML Topical Cream PINKY ([facility]) Hydroxyzine Hydrochloride 50 MG Oral Tablet PINKY ([facility]) Fluorouracil 50 MG/ML Topical Cream PINKY ([facility]) Doxycycline Monohydrate 100 MG Oral Capsule PINKY ([facility]) doxycycline hyclate 100 MG Oral Capsule PINKY ([facility]) Docusate Sodium 100 MG Oral Capsule PINKY ([facility]) Clindamycin 10 MG/ML Topical Solution PINKY ([facility]) Cimetidine 300 MG Oral Tablet PINKY ([facility]) chlorhexidine gluconate 1.2 MG/ML Mouthwash PINKY ([facility]) cetirizine hydrochloride 10 MG Oral Tablet PINKY ([facility]) benzonatate 100 MG Oral Capsule PINKY ([facility]) Azithromycin 250 MG Oral Tablet PINKY ([facility]) fluticasone furoate 0.1 MG/ACTUAT Dry Powder Inhaler PINKY ([facility]) Albuterol 0.83 MG/ML Inhalant Solution PINKY ([facility]) valacyclovir 1000 MG Oral Tablet PINKY ([facility]) Tab-A-Carlo 400 mcg tablet AT EMY ([facility]) Polyethylene Glycol 400 4 MG/ML / Propyl odessa glycol 3 MG/ML Ophthalmic Solution [Systane] PINKY ([facility]) Sulfamethoxazole 800 MG / Trimethoprim 160 MG Oral Tablet PINKY ([facility]) quetiapine 50 MG Oral Tablet PINKY ([facility]) quetiapine 25 MG Oral Tablet PINKY ([facility]) Prednisone 20 MG Oral Tablet PINKY ([facility]) Potassium Chloride 20 MEQ Extended Release Oral Tablet PINKY ([facility]) Ondansetron 4 MG Disintegrating Oral Tablet PINKY ([facility]) Omeprazole 20 MG Delayed Release Oral Capsule PINKY ([facility]) 12 HR Guaifenesin 600 MG Extended Release Oral Tablet [Mucinex] PINKY ([facility]) Metoclopramide 5 MG Oral Tablet PINKY ([facility]) meloxicam 7.5 MG Oral Tablet PINKY ([facility]) imiquimod 50 MG/ML Topical Cream PINKY ([facility]) Hydroxyzine Hydrochloride 50 MG Oral Tablet PINKY ([facility]) Fluorouracil 50 MG/ML Topical Cream PINKY ([facility]) Doxycycline Monohydrate 100 MG Oral Capsule PINKY ([facility]) doxycycline hyclate 100 MG Oral Capsule PINKY ([facility]) Docusate Sodium 100 MG Oral Capsule PINKY ([facility]) Clindamycin 10 MG/ML Topical Solution PINKY ([facility]) Cimetidine 300 MG Oral Tablet PINKY ([facility]) chlorhexidine gluconate 1.2 MG/ML Mouthwash PINKY ([facility]) cetirizine hydrochloride 10 MG Oral Tablet PINKY ([facility]) benzonatate 100 MG Oral Capsule PINKY ([facility]) Azithromycin 250 MG Oral Tablet PINKY ([facility]) fluticasone furoate 0.1 MG/ACTUAT Dry Powder Inhaler PINKY ([facility]) Albuterol 0.83 MG/ML Inhalant Solution PINKY ([facility]) valacyclovir 1000 MG Oral Tablet PINKY ([facility]) Tab-A-Carlo 400 mcg tablet AT EMY ([facility]) Polyethylene Glycol 400 4 MG/ML / Propyl odessa glycol 3 MG/ML Ophthalmic Solution [Systane] PINKY ([facility]) Sulfamethoxazole 800 MG / Trimethoprim 160 MG Oral Tablet PINKY ([facility]) quetiapine 50 MG Oral Tablet PINKY ([facility]) quetiapine 25 MG Oral Tablet PINKY ([facility]) Prednisone 20 MG Oral Tablet PINKY ([facility]) Potassium Chloride 20 MEQ Extended Release Oral Tablet PINKY ([facility]) Ondansetron 4 MG Disintegrating Oral Tablet PINKY ([facility]) Omeprazole 20 MG Delayed Release Oral Capsule PINKY ([facility]) 12 HR Guaifenesin 600 MG Extended Release Oral Tablet [Mucinex] PINKY ([facility]) Metoclopramide 5 MG Oral Tablet PINKY ([facility]) meloxicam 7.5 MG Oral Tablet PINKY ([facility]) imiquimod 50 MG/ML Topical Cream PINKY ([facility]) Hydroxyzine Hydrochloride 50 MG Oral Tablet PINKY ([facility]) Fluorouracil 50 MG/ML Topical Cream PINKY ([facility]) Doxycycline Monohydrate 100 MG Oral Capsule PINKY ([facility]) doxycycline hyclate 100 MG Oral Capsule PINKY ([facility]) Docusate Sodium 100 MG Oral Capsule PINKY ([facility]) Clindamycin 10 MG/ML Topical Solution PINKY ([facility]) Cimetidine 300 MG Oral Tablet PINKY ([facility]) chlorhexidine gluconate 1.2 MG/ML Mouthwash PINKY ([facility]) cetirizine hydrochloride 10 MG Oral Tablet PINKY ([facility]) benzonatate 100 MG Oral Capsule PINKY ([facility]) Azithromycin 250 MG Oral Tablet PINKY ([facility]) fluticasone furoate 0.1 MG/ACTUAT Dry Powder Inhaler PINKY ([facility]) Albuterol 0.83 MG/ML Inhalant Solution PINKY ([facility]) fluticasone furoate 0.1 MG/ACTUAT Dry Powder Inhaler PINKY ([facility]) Albuterol 0.83 MG/ML Inhalant Solution PINKY ([facility]) imiquimod 50 MG/ML Topical Cream PINKY ([facility]) Hydroxyzine Hydrochloride 50 MG Oral Tablet PINKY ([facility]) Fluorouracil 50 MG/ML Topical Cream PINKY ([facility]) Doxycycline Monohydrate 100 MG Oral Capsule PINKY ([facility]) doxycycline hyclate 100 MG Oral Capsule PINKY ([facility]) Docusate Sodium 100 MG Oral Capsule PINKY ([facility]) Clindamycin 10 MG/ML Topical Solution PINKY ([facility]) Cimetidine 300 MG Oral Tablet PINKY ([facility]) chlorhexidine gluconate 1.2 MG/ML Mouthwash PINKY ([facility]) cetirizine hydrochloride 10 MG Oral Tablet PINKY ([facility]) benzonatate 100 MG Oral Capsule PINKY ([facility]) Azithromycin 250 MG Oral Tablet PINKY ([facility]) fluticasone furoate 0.1 MG/ACTUAT Dry Powder Inhaler PINKY ([facility]) Albuterol 0.83 MG/ML Inhalant Solution PINKY ([facility]) valacyclovir 1000 MG Oral Tablet PINKY ([facility]) Tab-A-Carlo 400 mcg tablet AT EMY ([facility]) Polyethylene Glycol 400 4 MG/ML / Propyl odessa glycol 3 MG/ML Ophthalmic Solution [Systane] PINKY ([facility]) Sulfamethoxazole 800 MG / Trimethoprim 160 MG Oral Tablet PINKY ([facility]) quetiapine 50 MG Oral Tablet PINKY ([facility]) quetiapine 25 MG Oral Tablet PINKY ([facility]) Prednisone 20 MG Oral Tablet PINKY ([facility]) Potassium Chloride 20 MEQ Extended Release Oral Tablet PINKY ([facility]) Ondansetron 4 MG Disintegrating Oral Tablet PINKY ([facility]) Omeprazole 20 MG Delayed Release Oral Capsule PINKY ([facility]) 12 HR Guaifenesin 600 MG Extended Release Oral Tablet [Mucinex] PINKY ([facility]) Metoclopramide 5 MG Oral Tablet PINKY ([facility]) meloxicam 7.5 MG Oral Tablet PINKY ([facility]) imiquimod 50 MG/ML Topical Cream PINKY ([facility]) Hydroxyzine Hydrochloride 50 MG Oral Tablet PINKY ([facility]) Fluorouracil 50 MG/ML Topical Cream PINKY ([facility]) Doxycycline Monohydrate 100 MG Oral Capsule PINKY ([facility]) doxycycline hyclate 100 MG Oral Capsule PINKY ([facility]) Docusate Sodium 100 MG Oral Capsule PINKY ([facility]) Clindamycin 10 MG/ML Topical Solution PINKY ([facility]) Cimetidine 300 MG Oral Tablet PINKY ([facility]) chlorhexidine gluconate 1.2 MG/ML Mouthwash PINKY ([facility]) cetirizine hydrochloride 10 MG Oral Tablet PINKY ([facility]) benzonatate 100 MG Oral Capsule PINKY ([facility]) Azithromycin 250 MG Oral Tablet PINKY ([facility]) fluticasone furoate 0.1 MG/ACTUAT Dry Powder Inhaler PINKY ([facility]) Albuterol 0.83 MG/ML Inhalant Solution PINKY ([facility]) valacyclovir 1000 MG Oral Tablet PINKY ([facility]) Tab-A-Carlo 400 mcg tablet AT EMY ([facility]) Polyethylene Glycol 400 4 MG/ML / Propyl odessa glycol 3 MG/ML Ophthalmic Solution [Systane] PINKY ([facility]) Sulfamethoxazole 800 MG / Trimethoprim 160 MG Oral Tablet PINKY ([facility]) quetiapine 50 MG Oral Tablet PINKY ([facility]) quetiapine 25 MG Oral Tablet PINKY ([facility]) Prednisone 20 MG Oral Tablet PINKY ([facility]) Potassium Chloride 20 MEQ Extended Release Oral Tablet PINKY ([facility]) Ondansetron 4 MG Disintegrating Oral Tablet PINKY ([facility]) Omeprazole 20 MG Delayed Release Oral Capsule PINKY ([facility]) 12 HR Guaifenesin 600 MG Extended Release Oral Tablet [Mucinex] PINKY ([facility]) Metoclopramide 5 MG Oral Tablet PINKY ([facility]) meloxicam 7.5 MG Oral Tablet PINKY ([facility]) imiquimod 50 MG/ML Topical Cream PINKY ([facility]) Hydroxyzine Hydrochloride 50 MG Oral Tablet PINKY ([facility]) Fluorouracil 50 MG/ML Topical Cream PINKY ([facility]) Doxycycline Monohydrate 100 MG Oral Capsule PINKY ([facility]) doxycycline hyclate 100 MG Oral Capsule PINKY ([facility]) Clindamycin 10 MG/ML Topical Solution PINKY ([facility]) Cimetidine 300 MG Oral Tablet PINKY ([facility]) chlorhexidine gluconate 1.2 MG/ML Mouthwash PINKY ([facility]) cetirizine hydrochloride 10 MG Oral Tablet PINKY ([facility]) benzonatate 100 MG Oral Capsule PINKY ([facility]) Azithromycin 250 MG Oral Tablet PINKY ([facility]) fluticasone furoate 0.1 MG/ACTUAT Dry Powder Inhaler PINKY ([facility]) Albuterol 0.83 MG/ML Inhalant Solution PINKY ([facility]) valacyclovir 1000 MG Oral Tablet PINKY ([facility]) Tab-A-Carlo 400 mcg tablet AT EMY ([facility]) Polyethylene Glycol 400 4 MG/ML / Propyl odessa glycol 3 MG/ML Ophthalmic Solution [Systane] PINKY ([facility]) Sulfamethoxazole 800 MG / Trimethoprim 160 MG Oral Tablet PINKY ([facility]) quetiapine 50 MG Oral Tablet PINKY ([facility]) quetiapine 25 MG Oral Tablet PINKY ([facility]) Prednisone 20 MG Oral Tablet PINKY ([facility]) Potassium Chloride 20 MEQ Extended Release Oral Tablet PINKY ([facility]) Ondansetron 4 MG Disintegrating Oral Tablet PINKY ([facility]) Omeprazole 20 MG Delayed Release Oral Capsule PINKY ([facility]) 12 HR Guaifenesin 600 MG Extended Release Oral Tablet [Mucinex] PINKY ([facility]) Metoclopramide 5 MG Oral Tablet PINKY ([facility]) meloxicam 7.5 MG Oral Tablet PINKY ([facility]) imiquimod 50 MG/ML Topical Cream PINKY ([facility]) Hydroxyzine Hydrochloride 50 MG Oral Tablet PINKY ([facility]) Fluorouracil 50 MG/ML Topical Cream PINKY ([facility]) Doxycycline Monohydrate 100 MG Oral Capsule PINKY ([facility]) doxycycline hyclate 100 MG Oral Capsule PINKY ([facility]) Clindamycin 10 MG/ML Topical Solution PINKY ([facility]) Cimetidine 300 MG Oral Tablet PINKY ([facility]) chlorhexidine gluconate 1.2 MG/ML Mouthwash PINKY ([facility]) cetirizine hydrochloride 10 MG Oral Tablet PINKY ([facility]) benzonatate 100 MG Oral Capsule PINKY ([facility]) Azithromycin 250 MG Oral Tablet PINKY ([facility]) fluticasone furoate 0.1 MG/ACTUAT Dry Powder Inhaler PINKY ([facility]) Albuterol 0.83 MG/ML Inhalant Solution PINKY ([facility]) valacyclovir 1000 MG Oral Tablet PINKY ([facility]) Tab-A-Carlo 400 mcg tablet AT EMY ([facility]) Polyethylene Glycol 400 4 MG/ML / Propyl odessa glycol 3 MG/ML Ophthalmic Solution [Systane] PINKY ([facility]) Sulfamethoxazole 800 MG / Trimethoprim 160 MG Oral Tablet PINKY ([facility]) quetiapine 50 MG Oral Tablet PINKY ([facility]) quetiapine 25 MG Oral Tablet PINKY ([facility]) Prednisone 20 MG Oral Tablet PINKY ([facility]) Potassium Chloride 20 MEQ Extended Release Oral Tablet PINKY ([facility]) Ondansetron 4 MG Disintegrating Oral Tablet PINKY ([facility]) Omeprazole 20 MG Delayed Release Oral Capsule PINKY ([facility]) 12 HR Guaifenesin 600 MG Extended Release Oral Tablet [Mucinex] PINKY ([facility]) Metoclopramide 5 MG Oral Tablet PINK[facility] ([facility]) imiquimod 50 MG/ML Topical Cream PINKY ([facility]) Hydroxyzine Hydrochloride 50 MG Oral Tablet PINKY ([facility]) Fluorouracil 50 MG/ML Topical Cream PINKY ([facility]) Doxycycline Monohydrate 100 MG Oral Capsule PINKY ([facility]) doxycycline hyclate 100 MG Oral Capsule PINKY ([facility]) Clindamycin 10 MG/ML Topical Solution PINKY ([facility]) Cimetidine 300 MG Oral Tablet PINKY ([facility]) chlorhexidine gluconate 1.2 MG/ML Mouthwash PINKY ([facility]) cetirizine hydrochloride 10 MG Oral Tablet PINKY ([facility]) benzonatate 100 MG Oral Capsule PIKNY ([facility]) Azithromycin 250 MG Oral Tablet PINKY ([facility]) fluticasone furoate 0.1 MG/ACTUAT Dry Powder Inhaler PINKY ([facility]) quetiapine 50 MG Oral Tablet PINYK ([facility]) quetiapine 25 MG Oral Tablet PINKY ([facility]) Prednisone 20 MG Oral Tablet PINK[facility] ([facility]) Ondansetron 4 MG Disintegrating Oral Tablet PINK[facility] ([facility]) Omeprazole 40 MG Delayed Release Oral Capsule PINKY ([facility]) Metoclopramide 5 MG Oral Tablet PINK[facility] ([facility]) imiquimod 50 MG/ML Topical Cream PINKY ([facility]) Hydroxyzine Hydrochloride 50 MG Oral Tablet PINKY ([facility]) Fluorouracil 50 MG/ML Topical Cream PINKY ([facility]) Doxycycline Monohydrate 100 MG Oral Capsule PINKY ([facility]) doxycycline hyclate 100 MG Oral Capsule PINKY ([facility]) Clindamycin 10 MG/ML Topical Solution PINKY ([facility]) Cimetidine 300 MG Oral Tablet PINKY ([facility]) chlorhexidine gluconate 1.2 MG/ML Mouthwash PINKY ([facility]) cetirizine hydrochloride 10 MG Oral Tablet PINKY ([facility]) benzonatate 100 MG Oral Capsule PINKY ([facility]) Azithromycin 250 MG Oral Tablet PINKY ([facility]) valacyclovir 1000 MG Oral Tablet PINKY ([facility]) Tab-A-Carlo 400 mcg tablet AT [facility] ([facility]) Polyethylene Glycol 400 4 MG/ML / Propyl odessa glycol 3 MG/ML Ophthalmic Solution [Systane] P[facility] ([facility]) Sulfamethoxazole 800 MG / Trimethoprim 160 MG Oral Tablet [facility] ([facility]) quetiapine 50 MG Oral Tablet [facility] ([facility]) quetiapine 25 MG Oral Tablet [facility] ([facility]) Ondansetron 4 MG Disintegrating Oral Tablet [facility] ([facility]) Omeprazole 40 MG Delayed Release Oral Capsule [facility] ([facility]) Metoclopramide 5 MG Oral Tablet [facility] ([facility]) imiquimod 50 MG/ML Topical Cream [facility] ([facility]) Hydroxyzine Hydrochloride 50 MG Oral Tablet [facility] ([facility]) Fluorouracil 50 MG/ML Topical Cream [facility] ([facility]) Doxycycline Monohydrate 100 MG Oral Capsule [facility] ([facility]) doxycycline hyclate 100 MG Oral Capsule [facility] ([facility]) Clindamycin 10 MG/ML Topical Solution [facility] ([facility]) Cimetidine 300 MG Oral Tablet [facility] ([facility]) chlorhexidine gluconate 1.2 MG/ML Mouthwash [facility] ([facility]) cetirizine hydrochloride 10 MG Oral Tablet [facility] ([facility]) benzonatate 100 MG Oral Capsule [facility] ([facility]) Azithromycin 250 MG Oral Tablet [facility] ([facility]) valacyclovir 1000 MG Oral Tablet [facility] ([facility]) Tab-A-Carlo 400 mcg tablet AT [facility] ([facility]) Polyethylene Glycol 400 4 MG/ML / Propyl odessa glycol 3 MG/ML Ophthalmic Solution [Systane] P[facility] ([facility]) Sulfamethoxazole 800 MG / Trimethoprim 160 MG Oral Tablet [facility] ([facility]) quetiapine 50 MG Oral Tablet [facility] ([facility]) quetiapine 25 MG Oral Tablet [facility] ([facility]) Prednisone 20 MG Oral Tablet [facility] ([facility]) Ondansetron 4 MG Disintegrating Oral Tablet [facility] ([facility]) Omeprazole 40 MG Delayed Release Oral Capsule [facility] ([facility]) Omeprazole 20 MG Delayed Release Oral Capsule [facility] ([facility]) Metoclopramide 5 MG Oral Tablet [facility] ([facility]) imiquimod 50 MG/ML Topical Cream [facility] ([facility]) Hydroxyzine Hydrochloride 50 MG Oral Tablet [facility] ([facility]) Fluorouracil 50 MG/ML Topical Cream [facility] ([facility]) Doxycycline Monohydrate 100 MG Oral Capsule [facility] ([facility]) Clindamycin 10 MG/ML Topical Solution [facility] ([facility]) Cimetidine 300 MG Oral Tablet [facility] ([facility]) chlorhexidine gluconate 1.2 MG/ML Mouthwash [facility] ([facility]) cetirizine hydrochloride 10 MG Oral Tablet [facility] ([facility]) benzonatate 100 MG Oral Capsule [facility] ([facility]) Azithromycin 250 MG Oral Tablet [facility] ([facility]) valacyclovir 1000 MG Oral Tablet [facility] ([facility]) Tab-A-Carlo 400 mcg tablet AT [facility] ([facility]) Polyethylene Glycol 400 4 MG/ML / Propyl odessa glycol 3 MG/ML Ophthalmic Solution [Systane] [facility] ([facility]) Sulfamethoxazole 800 MG / Trimethoprim 160 MG Oral Tablet [facility] ([facility]) quetiapine 50 MG Oral Tablet [facility] ([facility]) quetiapine 25 MG Oral Tablet [facility] ([facility]) Prednisone 20 MG Oral Tablet [facility] ([facility]) Ondansetron 4 MG Disintegrating Oral Tablet [facility] ([facility]) Omeprazole 40 MG Delayed Release Oral Capsule [facility] ([facility]) Omeprazole 20 MG Delayed Release Oral Capsule [facility] ([facility]) Metoclopramide 5 MG Oral Tablet [facility] ([facility]) imiquimod 50 MG/ML Topical Cream [facility] ([facility]) Hydroxyzine Hydrochloride 50 MG Oral Tablet [facility] ([facility]) Fluorouracil 50 MG/ML Topical Cream [facility] ([facility]) Doxycycline Monohydrate 100 MG Oral Capsule [facility] ([facility]) Clindamycin 10 MG/ML Topical Solution [facility] ([facility]) Cimetidine 300 MG Oral Tablet [facility] ([facility]) chlorhexidine gluconate 1.2 MG/ML Mouthwash [facility] ([facility]) imiquimod 50 MG/ML Topical Cream [facility] ([facility]) Hydroxyzine Hydrochloride 50 MG Oral Tablet [facility] ([facility]) Fluorouracil 50 MG/ML Topical Cream [facility] ([facility]) Doxycycline Monohydrate 100 MG Oral Capsule [facility] ([facility]) doxycycline hyclate 100 MG Oral Capsule [facility] ([facility]) Docusate Sodium 100 MG Oral Capsule [facility] ([facility]) Clindamycin 10 MG/ML Topical Solution [facility] ([facility]) Cimetidine 300 MG Oral Tablet [facility] ([facility]) chlorhexidine gluconate 1.2 MG/ML Mouthwash [facility] ([facility]) cetirizine hydrochloride 10 MG Oral Tablet [facility] ([facility]) benzonatate 100 MG Oral Capsule [facility] ([facility]) Azithromycin 250 MG Oral Tablet [facility] ([facility]) valacyclovir 1000 MG Oral Tablet [facility] ([facility]) Tab-A-Carlo 400 mcg tablet AT [facility] ([facility]) Polyethylene Glycol 400 4 MG/ML / Propyl odessa glycol 3 MG/ML Ophthalmic Solution [Systane] [facility] ([facility]) Sulfamethoxazole 800 MG / Trimethoprim 160 MG Oral Tablet [facility] ([facility]) quetiapine 50 MG Oral Tablet [facility] ([facility]) quetiapine 25 MG Oral Tablet [facility] ([facility]) Prednisone 20 MG Oral Tablet [facility] ([facility]) Potassium Chloride 20 MEQ Extended Release Oral Tablet [facility] ([facility]) Ondansetron 4 MG Disintegrating Oral Tablet [facility] ([facility]) Omeprazole 20 MG Delayed Release Oral Capsule [facility] ([facility]) 12 HR Guaifenesin 600 MG Extended Release Oral Tablet [Mucinex] [facility] ([facility]) Metoclopramide 5 MG Oral Tablet [facility] ([facility]) meloxicam 7.5 MG Oral Tablet [facility] ([facility]) imiquimod 50 MG/ML Topical Cream [facility] ([facility]) Hydroxyzine Hydrochloride 50 MG Oral Tablet [facility] ([facility]) Fluorouracil 50 MG/ML Topical Cream [facility] ([facility]) Doxycycline Monohydrate 100 MG Oral Capsule [facility] ([facility]) doxycycline hyclate 100 MG Oral Capsule [facility] ([facility]) Docusate Sodium 100 MG Oral Capsule [facility] ([facility]) Clindamycin 10 MG/ML Topical Solution [facility] ([facility]) Cimetidine 300 MG Oral Tablet [facility] ([facility]) chlorhexidine gluconate 1.2 MG/ML Mouthwash [facility] ([facility]) cetirizine hydrochloride 10 MG Oral Tablet [facility] ([facility]) benzonatate 100 MG Oral Capsule [facility] ([facility]) Azithromycin 250 MG Oral Tablet [facility] ([facility]) fluticasone furoate 0.1 MG/ACTUAT Dry Powder Inhaler [facility] ([facility]) Albuterol 0.83 MG/ML Inhalant Solution [facility] ([facility]) valacyclovir 1000 MG Oral Tablet [facility] ([facility]) Tab-A-Carlo 400 mcg tablet AT [facility] ([facility]) Polyethylene Glycol 400 4 MG/ML / Propyl odessa glycol 3 MG/ML Ophthalmic Solution [Systane] [facility] ([facility]) Sulfamethoxazole 800 MG / Trimethoprim 160 MG Oral Tablet [facility] ([facility]) quetiapine 50 MG Oral Tablet [facility] ([facility]) quetiapine 25 MG Oral Tablet [facility] ([facility]) Prednisone 20 MG Oral Tablet [facility] ([facility]) Potassium Chloride 20 MEQ Extended Release Oral Tablet [facility] ([facility]) Ondansetron 4 MG Disintegrating Oral Tablet [facility] ([facility]) Omeprazole 20 MG Delayed Release Oral Capsule [facility] ([facility]) 12 HR Guaifenesin 600 MG Extended Release Oral Tablet [Mucinex] [facility] ([facility]) Metoclopramide 5 MG Oral Tablet [facility] ([facility]) meloxicam 7.5 MG Oral Tablet [facility] ([facility]) imiquimod 50 MG/ML Topical Cream [facility] ([facility]) Hydroxyzine Hydrochloride 50 MG Oral Tablet [facility] ([facility]) Fluorouracil 50 MG/ML Topical Cream [facility] ([facility]) Doxycycline Monohydrate 100 MG Oral Capsule [facility] ([facility]) doxycycline hyclate 100 MG Oral Capsule [facility] ([facility]) Docusate Sodium 100 MG Oral Capsule [facility] ([facility]) Clindamycin 10 MG/ML Topical Solution [facility] ([facility]) Cimetidine 300 MG Oral Tablet [facility] ([facility]) chlorhexidine gluconate 1.2 MG/ML Mouthwash [facility] ([facility]) cetirizine hydrochloride 10 MG Oral Tablet [facility] ([facility]) benzonatate 100 MG Oral Capsule [facility] ([facility]) Azithromycin 250 MG Oral Tablet [facility] ([facility]) fluticasone furoate 0.1 MG/ACTUAT Dry Powder Inhaler [facility] ([facility]) Albuterol 0.83 MG/ML Inhalant Solution [facility] ([facility]) valacyclovir 1000 MG Oral Tablet [facility] ([facility]) Tab-A-Carlo 400 mcg tablet AT [facility] ([facility]) Polyethylene Glycol 400 4 MG/ML / Propyl odessa glycol 3 MG/ML Ophthalmic Solution [Systane] [facility] ([facility]) Sulfamethoxazole 800 MG / Trimethoprim 160 MG Oral Tablet [facility] ([facility]) quetiapine 50 MG Oral Tablet [facility] ([facility]) quetiapine 25 MG Oral Tablet [facility] ([facility]) Prednisone 20 MG Oral Tablet [facility] ([facility]) Potassium Chloride 20 MEQ Extended Release Oral Tablet [facility] ([facility]) Ondansetron 4 MG Disintegrating Oral Tablet [facility] ([facility]) Omeprazole 20 MG Delayed Release Oral Capsule [facility] ([facility]) 12 HR Guaifenesin 600 MG Extended Release Oral Tablet [Mucinex] [facility] ([facility]) Metoclopramide 5 MG Oral Tablet [facility] ([facility]) meloxicam 7.5 MG Oral Tablet [facility] ([facility]) imiquimod 50 MG/ML Topical Cream [facility] ([facility]) Hydroxyzine Hydrochloride 50 MG Oral Tablet [facility] ([facility]) Fluorouracil 50 MG/ML Topical Cream [facility] ([facility]) Doxycycline Monohydrate 100 MG Oral Capsule [facility] ([facility]) doxycycline hyclate 100 MG Oral Capsule [facility] ([facility]) Docusate Sodium 100 MG Oral Capsule [facility] ([facility]) Clindamycin 10 MG/ML Topical Solution [facility] ([facility]) Cimetidine 300 MG Oral Tablet [facility] ([facility]) chlorhexidine gluconate 1.2 MG/ML Mouthwash [facility] ([facility]) cetirizine hydrochloride 10 MG Oral Tablet [facility] ([facility]) benzonatate 100 MG Oral Capsule [facility] ([facility]) Azithromycin 250 MG Oral Tablet [facility] ([facility]) fluticasone furoate 0.1 MG/ACTUAT Dry Powder Inhaler [facility] ([facility]) Albuterol 0.83 MG/ML Inhalant Solution [facility] ([facility]) valacyclovir 1000 MG Oral Tablet [facility] ([facility]) Tab-A-Carlo 400 mcg tablet AT [facility] ([facility]) Polyethylene Glycol 400 4 MG/ML / Propyl odessa glycol 3 MG/ML Ophthalmic Solution [Systane] [facility] ([facility]) Sulfamethoxazole 800 MG / Trimethoprim 160 MG Oral Tablet [facility] ([facility]) quetiapine 50 MG Oral Tablet [facility] ([facility]) quetiapine 25 MG Oral Tablet [facility] ([facility]) Prednisone 20 MG Oral Tablet [facility] ([facility]) Potassium Chloride 20 MEQ Extended Release Oral Tablet [facility] ([facility]) Ondansetron 4 MG Disintegrating Oral Tablet [facility] ([facility]) Omeprazole 20 MG Delayed Release Oral Capsule [facility] ([facility]) 12 HR Guaifenesin 600 MG Extended Release Oral Tablet [Mucinex] [facility] ([facility]) Metoclopramide 5 MG Oral Tablet [facility] ([facility]) meloxicam 7.5 MG Oral Tablet [facility] ([facility]) cetirizine hydrochloride 10 MG Oral Tablet [facility] ([facility]) benzonatate 100 MG Oral Capsule [facility] ([facility]) Azithromycin 250 MG Oral Tablet [facility] ([facility]) valacyclovir 1000 MG Oral Tablet [facility] ([facility]) Tab-A-Carlo 400 mcg tablet AT [facility] ([facility]) Polyethylene Glycol 400 4 MG/ML / Propyl odessa glycol 3 MG/ML Ophthalmic Solution [Systane] [facility] ([facility]) Sulfamethoxazole 800 MG / Trimethoprim 160 MG Oral Tablet [facility] ([facility]) quetiapine 50 MG Oral Tablet [facility] ([facility]) quetiapine 25 MG Oral Tablet [facility] ([facility]) Prednisone 20 MG Oral Tablet [facility] ([facility]) Potassium Chloride 20 MEQ Extended Release Oral Tablet [facility] ([facility]) Ondansetron 4 MG Disintegrating Oral Tablet [facility] ([facility]) Omeprazole 20 MG Delayed Release Oral Capsule [facility] ([facility]) 12 HR Guaifenesin 600 MG Extended Release Oral Tablet [Mucinex] [facility] ([facility]) Metoclopramide 5 MG Oral Tablet [facility] ([facility]) meloxicam 7.5 MG Oral Tablet [facility] ([facility]) valacyclovir 1000 MG Oral Tablet [facility] ([facility]) Tab-A-Carlo 400 mcg tablet AT [facility] ([facility]) Polyethylene Glycol 400 4 MG/ML / Propyl odessa glycol 3 MG/ML Ophthalmic Solution [Systane] [facility] ([facility]) Sulfamethoxazole 800 MG / Trimethoprim 160 MG Oral Tablet [facility] ([facility]) quetiapine 50 MG Oral Tablet [facility] ([facility]) quetiapine 25 MG Oral Tablet [facility] ([facility]) Prednisone 20 MG Oral Tablet [facility] ([facility]) Potassium Chloride 20 MEQ Extended Release Oral Tablet [facility] ([facility]) Ondansetron 4 MG Disintegrating Oral Tablet [facility] ([facility]) Omeprazole 20 MG Delayed Release Oral Capsule [facility] ([facility]) 12 HR Guaifenesin 600 MG Extended Release Oral Tablet [Mucinex] [facility] ([facility]) Metoclopramide 5 MG Oral Tablet [facility] ([facility]) meloxicam 7.5 MG Oral Tablet [facility] ([facility]) imiquimod 50 MG/ML Topical Cream [facility] ([facility]) Hydroxyzine Hydrochloride 50 MG Oral Tablet [facility] ([facility]) Fluorouracil 50 MG/ML Topical Cream [facility] ([facility]) Doxycycline Monohydrate 100 MG Oral Capsule [facility] ([facility]) doxycycline hyclate 100 MG Oral Capsule [facility] ([facility]) Docusate Sodium 100 MG Oral Capsule [facility] ([facility]) Clindamycin 10 MG/ML Topical Solution [facility] ([facility]) Cimetidine 300 MG Oral Tablet [facility] ([facility]) chlorhexidine gluconate 1.2 MG/ML Mouthwash [facility] ([facility]) cetirizine hydrochloride 10 MG Oral Tablet [facility] ([facility]) benzonatate 100 MG Oral Capsule [facility] ([facility]) Azithromycin 250 MG Oral Tablet [facility] ([facility]) fluticasone furoate 0.1 MG/ACTUAT Dry Powder Inhaler [facility] ([facility]) Albuterol 0.83 MG/ML Inhalant Solution [facility] ([facility]) valacyclovir 1000 MG Oral Tablet [facility] ([facility]) Tab-A-Carlo 400 mcg tablet AT [facility] ([facility]) Polyethylene Glycol 400 4 MG/ML / Propyl odessa glycol 3 MG/ML Ophthalmic Solution [Systane] [facility] ([facility]) Sulfamethoxazole 800 MG / Trimethoprim 160 MG Oral Tablet [facility] ([facility]) quetiapine 50 MG Oral Tablet [facility] ([facility]) quetiapine 25 MG Oral Tablet [facility] ([facility]) Prednisone 20 MG Oral Tablet [facility] ([facility]) Ondansetron 4 MG Disintegrating Oral Tablet [facility] ([facility]) Omeprazole 40 MG Delayed Release Oral Capsule [facility] ([facility]) Metoclopramide 5 MG Oral Tablet [facility] ([facility]) imiquimod 50 MG/ML Topical Cream [facility] ([facility]) Hydroxyzine Hydrochloride 50 MG Oral Tablet [facility] ([facility]) Fluorouracil 50 MG/ML Topical Cream [facility] ([facility]) Doxycycline Monohydrate 100 MG Oral Capsule [facility] ([facility]) doxycycline hyclate 100 MG Oral Capsule [facility] ([facility]) Clindamycin 10 MG/ML Topical Solution [facility] ([facility]) Cimetidine 300 MG Oral Tablet [facility] ([facility]) chlorhexidine gluconate 1.2 MG/ML Mouthwash [facility] ([facility]) cetirizine hydrochloride 10 MG Oral Tablet [facility] ([facility]) benzonatate 100 MG Oral Capsule [facility] ([facility]) Azithromycin 250 MG Oral Tablet [facility] ([facility]) valacyclovir 1000 MG Oral Tablet [facility] ([facility]) Tab-A-Carlo 400 mcg tablet AT [facility] ([facility]) Polyethylene Glycol 400 4 MG/ML / Propyl odessa glycol 3 MG/ML Ophthalmic Solution [Systane] [facility] ([facility]) Sulfamethoxazole 800 MG / Trimethoprim 160 MG Oral Tablet [facility] ([facility])
== END 2021-01-27 03:17 | disposition left against medical advice (07) ==
LOC: M ED 00:35
DX: Z53.29 Procedure and treatment not carried out because of patient's decision for other reasons (principal)

== ENCOUNTER 2021-02-01 10:47 | Inpatient (IN) | payer MEDICAID, OTHER ==
[~2021-02-01] VITALS: Ht 157.5 cm; Wt 43.9 kg
[~2021-02-01 10:47] MED LIST changes: +ALBU8.5H INH; -ALBU83IN; -CEFD1CAP8 PO; +CEFD300C41 PO; +FLON1SPR NARES; +OMEP-173 PO; -OMEP-218 PO; -OMEP-221; +OMEP40CA5
[2021-02-01 11:37] LABS: HEMATOCRIT 45.3 % (42.0-52.0); HEMOGLOBIN 15.9 g/dl (13.5-17.5); MEAN CORPUSCULAR HEMOGLOBIN 27.3 pg (27.0-33.0); MEAN CORPUSCULAR HGB CONC 35.1 g/dl (32.0-36.5); MEAN CORPUSCULAR VOLUME 77.8 fl (80.0-96.0); PLATELET COUNT, AUTOMATED 127 10^3/uL (150-450); RED BLOOD COUNT 5.82 10^6/uL (4.30-6.10); WHITE BLOOD COUNT 19.1 10^3/uL (4.0-10.0)
[2021-02-01 12:21] LABS: ACETAMINOPHEN LEVEL < 2.0 UG/ML (10.0-30.0); ALBUMIN 5.3 GM/DL (3.2-5.2); ALT/SGPT 20 U/L (12-78); BILIRUBIN,DIRECT 0.3 MG/DL (0.0-0.2); BILIRUBIN,TOTAL 1.1 MG/DL (0.2-1.0); BLOOD UREA NITROGEN 24 MG/DL (7-18); CALCIUM LEVEL 9.7 MG/DL (8.5-10.1); CARBON DIOXIDE LEVEL 20 MEQ/L (21-32); CHLORIDE LEVEL 106 MEQ/L (98-107); CREATININE FOR GFR 1.08 MG/DL (0.70-1.30); ETHYL ALCOHOL (ETHANOL) 0.003 % (0.000-0.010); GLOMERULAR FILTRATION RATE > 60.0 (>60); GLUCOSE, FASTING 79 MG/DL (70-100); POTASSIUM SERUM 3.9 MEQ/L (3.5-5.1); SALICYLATE LEVEL < 1.7 MG/DL (5.0-30.0); SODIUM LEVEL 138 MEQ/L (136-145); THYROID STIMULATING HORMONE 0.853 uIU/ML (0.358-3.740); TOTAL PROTEIN 8.1 GM/DL (6.4-8.2)
[2021-02-01 12:32] LABS: AMPHETAMINES LEVEL URINE NEGATIVE (NEGATIVE); BARBITURATES URINE NEGATIVE (NEGATIVE); BENZODIAZEPINES URINE NEGATIVE (NEGATIVE); CANNABINOIDS URINE POSITIVE (NEGATIVE); COCAINE METABOLITE URINE NEGATIVE (NEGATIVE); METHADONE URINE NEGATIVE (NEGATIVE); OPIATES URINE NEGATIVE (NEGATIVE); PHENCYCLIDINE URINE NEGATIVE (NEGATIVE)
[2021-02-01] MEDS ORDERED: LORazepam 1 MG TAB PO STA (14:46)
[2021-02-01 15:10] LABS: BASO # 0.1 10^3/uL (0.0-0.2); BASO % 0.3 % (0.0-1.0); EOS % 0.2 % (0.0-3.0); LYMPH # 0.7 10^3/uL (1.5-5.0); LYMPH % 3.6 % (24.0-44.0); MONO # 0.5 10^3/uL (0.0-0.8); MONO % 2.7 % (2.0-8.0); NEUTROPHILS # 17.6 10^3/uL (1.5-8.5); NEUTROPHILS % 92.7 % (36.0-66.0)
[2021-02-01 17:38] LABS: BASO # 0.1 10^3/uL (0.0-0.2); BASO % 0.4 % (0.0-1.0); EOS % 0.1 % (0.0-3.0); HEMATOCRIT 43.5 % (42.0-52.0); HEMOGLOBIN 15.4 g/dl (13.5-17.5); LYMPH # 1.4 10^3/uL (1.5-5.0); LYMPH % 8.3 % (24.0-44.0); MEAN CORPUSCULAR HEMOGLOBIN 27.1 pg (27.0-33.0); MEAN CORPUSCULAR HGB CONC 35.4 g/dl (32.0-36.5); MEAN CORPUSCULAR VOLUME 76.4 fl (80.0-96.0); MONO # 0.7 10^3/uL (0.0-0.8); MONO % 4.3 % (2.0-8.0); NEUTROPHILS # 14.2 10^3/uL (1.5-8.5); NEUTROPHILS % 86.4 % (36.0-66.0); PLATELET COUNT, AUTOMATED 138 10^3/uL (150-450); RED BLOOD COUNT 5.69 10^6/uL (4.30-6.10); WHITE BLOOD COUNT 16.4 10^3/uL (4.0-10.0)
[2021-02-01] MEDS ORDERED: MAALOX 30 ML SUSP *UDC PO PRN (19:30)
[2021-02-01] MEDS ORDERED: OMEP40CA5 PO (19:55)
[2021-02-01] MEDS ORDERED: FLUTISP NARES (19:55)
[2021-02-01] MEDS ORDERED: HOME MED LIST COMPLETE! XX SCH (20:00)
[2021-02-01] MEDS ORDERED: OMEPRAZOLE 20MG CAP PO ONE (21:05)
[2021-02-01] MEDS ORDERED: FLUTICASONE PROP 0.05% NASAL SPRAY 16 GM (FLONASE) NARES ONE (21:05)
[2021-02-01] MEDS: ACETAMINOPHEN TAB 650MG DOSE (2X325MG) PO PRN (23:07)
[2021-02-02 00:57] VITALS: BP 128/81
[2021-02-02] MEDS: ALBUTEROL 90 MCG/ACT 8GM HFA INHALER INH PRN ×2 (07:47→23:06)
[2021-02-02] MEDS: OMEPRAZOLE 20MG CAP PO SCH (08:30)
[2021-02-02] MEDS: ACETAMINOPHEN TAB 650MG DOSE (2X325MG) PO PRN (08:33)
[2021-02-02] MEDS: NICOTINE 21MG/24HR 1 EA TRANSDERMAL TD SCH (08:34)
[2021-02-02] MEDS: DULoxetine 20 MG CAP (CYMBALTA) PO SCH ×3 (09:00→21:18)
[2021-02-02] MEDS: FLUTICASONE PROP 0.05% NASAL SPRAY 16 GM (FLONASE) NARES PRN ×2 (16:16→23:05)
[2021-02-02 17:19] VITALS: BP 130/83
[2021-02-02] MEDS: ARIPiprazole 2 MG TAB PO SCH (21:18)
[2021-02-03] MEDS: OMEPRAZOLE 20MG CAP PO SCH (07:53)
[2021-02-03] MEDS: DULoxetine 20 MG CAP (CYMBALTA) PO SCH ×2 (07:53→20:35)
[2021-02-03] MEDS: NICOTINE 21MG/24HR 1 EA TRANSDERMAL TD SCH (07:55)
[2021-02-03 09:51] LABS: CHOLESTEROL RISK RATIO 2.061 (<5)
[2021-02-03] MEDS: CLOTRIMAZOLE 1% TOPICAL CREAM 30GM TOP SCH (14:50)
[2021-02-03 16:36] VITALS: BP 132/80
[2021-02-03 18:27] VITALS: BP_SYST 96
[2021-02-03] MEDS: FLUTICASONE PROP 0.05% NASAL SPRAY 16 GM (FLONASE) NARES PRN (18:36)
[2021-02-03] MEDS: ALBUTEROL 90 MCG/ACT 8GM HFA INHALER INH PRN (18:37)
[2021-02-03] MEDS: ARIPiprazole 2 MG TAB PO SCH (20:35)
[2021-02-04 06:34] VITALS: BP 145/87
[2021-02-04] MEDS: DULoxetine 20 MG CAP (CYMBALTA) PO SCH (08:18)
[2021-02-04] MEDS: CLOTRIMAZOLE 1% TOPICAL CREAM 30GM TOP SCH (08:18)
[2021-02-04] MEDS: OMEPRAZOLE 20MG CAP PO SCH (08:19)
[2021-02-04] MEDS: NICOTINE 21MG/24HR 1 EA TRANSDERMAL TD SCH (08:19)
[2021-02-04] MEDS: MOM 30ML SUSPENSION UDC PO PRN (12:50)
[2021-02-04] MEDS: ACETAMINOPHEN TAB 650MG DOSE (2X325MG) PO PRN (16:32)
[2021-02-04 18:25] VITALS: BP 132/78
[2021-02-04] MEDS: FLUTICASONE PROP 0.05% NASAL SPRAY 16 GM (FLONASE) NARES PRN (19:49)
[2021-02-05 06:47] VITALS: BP 134/81
[2021-02-05] MEDS: NICOTINE 21MG/24HR 1 EA TRANSDERMAL TD SCH (07:47)
[2021-02-05] MEDS: OMEPRAZOLE 20MG CAP PO SCH (07:47)
[2021-02-05] MEDS: DULoxetine 30MG CAPSULE (CYMBALTA) PO SCH (07:47)
[2021-02-05] MEDS: ACETAMINOPHEN TAB 650MG DOSE (2X325MG) PO PRN (11:48)
[2021-02-05 16:05] VITALS: BP 140/79
[2021-02-05] MEDS: ARIPiprazole 10 MG TAB PO SCH (20:10)
[2021-02-05] MEDS: CLOTRIMAZOLE 1% TOPICAL CREAM 30GM TOP SCH (20:46)
[2021-02-05] MEDS: traZODone 50 MG TAB PO PRN (22:01)
[2021-02-06 06:36] VITALS: BP 121/77
[2021-02-06] MEDS: OMEPRAZOLE 20MG CAP PO SCH (08:08)
[2021-02-06] MEDS: DULoxetine 30MG CAPSULE (CYMBALTA) PO SCH (08:08)
[2021-02-06] MEDS: NICOTINE 21MG/24HR 1 EA TRANSDERMAL TD SCH (08:09)
[2021-02-06] MEDS: CLOTRIMAZOLE 1% TOPICAL CREAM 30GM TOP SCH ×2 (08:09→20:12)
[2021-02-06] MEDS: ALBUTEROL 90 MCG/ACT 8GM HFA INHALER INH PRN (08:11)
[2021-02-06] MEDS: FLUTICASONE PROP 0.05% NASAL SPRAY 16 GM (FLONASE) NARES PRN (08:12)
[2021-02-06] MEDS: ACETAMINOPHEN TAB 650MG DOSE (2X325MG) PO PRN (14:12)
[2021-02-06 16:11] VITALS: BP 146/84
[2021-02-06] MEDS: SODIUM CHLORIDE NASAL 0.65% SPRAY BTL (OCEAN) PRN ×2 (17:24→19:53)
[2021-02-06] MEDS: MOM 30ML SUSPENSION UDC PO PRN (18:20)
[2021-02-06] MEDS: ARIPiprazole 10 MG TAB PO SCH (20:11)
[2021-02-06] MEDS: traZODone 50 MG TAB PO PRN (20:36)
[2021-02-07 06:29] VITALS: BP 145/67
[2021-02-07] MEDS: NICOTINE 21MG/24HR 1 EA TRANSDERMAL TD SCH (08:00)
[2021-02-07] MEDS: OMEPRAZOLE 20MG CAP PO SCH (08:01)
[2021-02-07] MEDS: DULoxetine 30MG CAPSULE (CYMBALTA) PO SCH (08:01)
[2021-02-07] MEDS: CLOTRIMAZOLE 1% TOPICAL CREAM 30GM TOP SCH ×2 (08:02→20:44)
[2021-02-07] MEDS: SODIUM CHLORIDE NASAL 0.65% SPRAY BTL (OCEAN) PRN (08:02)
[2021-02-07] MEDS ORDERED: MIRALAX *UNIT DOSE* 17GM PACKET PO PRN (10:05)
[2021-02-07] MEDS: METAMUCIL (PSYLLIUM) PACKET PO SCH (11:46)
[2021-02-07 16:30] VITALS: BP 130/80
[2021-02-07] MEDS: hydrOXYzine 50 MG TAB PO PRN (18:54)
[2021-02-07] MEDS ORDERED: ARIPiprazole 10 MG TAB PO SCH (21:00)
[2021-02-08] MEDS: FLUTICASONE PROP 0.05% NASAL SPRAY 16 GM (FLONASE) NARES PRN ×2 (05:55→21:49)
[2021-02-08] MEDS: hydrOXYzine 50 MG TAB PO PRN ×2 (07:32→19:18)
[2021-02-08] MEDS: METAMUCIL (PSYLLIUM) PACKET PO SCH (09:00)
[2021-02-08] MEDS: NICOTINE 21MG/24HR 1 EA TRANSDERMAL TD SCH (09:00)
[2021-02-08] MEDS: DULoxetine 30MG CAPSULE (CYMBALTA) PO SCH (09:27)
[2021-02-08] MEDS: OMEPRAZOLE 20MG CAP PO SCH (09:27)
[2021-02-08] MEDS: ARIPiprazole 10 MG TAB PO SCH ×2 (09:28→20:29)
[2021-02-08] MEDS: CLOTRIMAZOLE 1% TOPICAL CREAM 30GM TOP SCH ×2 (09:30→20:29)
[2021-02-08] MEDS: ALBUTEROL 90 MCG/ACT 8GM HFA INHALER INH PRN (16:13)
[2021-02-08 17:48] VITALS: BP 143/81
[2021-02-08] MEDS: traZODone 50 MG TAB PO PRN (20:45)
[2021-02-09] MEDS: ALBUTEROL 90 MCG/ACT 8GM HFA INHALER INH PRN ×2 (02:22→16:10)
[2021-02-09 07:03] VITALS: BP 133/93
[2021-02-09] MEDS: OMEPRAZOLE 20MG CAP PO SCH (08:22)
[2021-02-09] MEDS: DULoxetine 30MG CAPSULE (CYMBALTA) PO SCH (08:23)
[2021-02-09] MEDS: NICOTINE 21MG/24HR 1 EA TRANSDERMAL TD SCH (08:24)
[2021-02-09] MEDS: ARIPiprazole 10 MG TAB PO SCH ×2 (08:24→21:46)
[2021-02-09] MEDS: METAMUCIL (PSYLLIUM) PACKET PO SCH (08:25)
[2021-02-09] MEDS: CLOTRIMAZOLE 1% TOPICAL CREAM 30GM TOP SCH ×2 (08:26→21:47)
[2021-02-09] MEDS: SODIUM CHLORIDE NASAL 0.65% SPRAY BTL (OCEAN) PRN (16:09)
[2021-02-09 18:41] VITALS: BP 132/67
[2021-02-09] MEDS: traZODone 50 MG TAB PO PRN (21:46)
[2021-02-10] MEDS: FLUTICASONE PROP 0.05% NASAL SPRAY 16 GM (FLONASE) NARES PRN (03:14)
[2021-02-10 07:05] VITALS: BP 130/80
[2021-02-10] MEDS: METAMUCIL (PSYLLIUM) PACKET PO SCH (08:06)
[2021-02-10] MEDS: OMEPRAZOLE 20MG CAP PO SCH (08:08)
[2021-02-10] MEDS: DULoxetine 30MG CAPSULE (CYMBALTA) PO SCH (08:08)
[2021-02-10] MEDS: CLOTRIMAZOLE 1% TOPICAL CREAM 30GM TOP SCH (08:09)
[2021-02-10] MEDS: ARIPiprazole 10 MG TAB PO SCH (08:09)
[2021-02-10] MEDS ORDERED: CYMB1CAP5 PO (08:39)
[2021-02-10] MEDS ORDERED: HYDR50TA70 PO (08:39)
[2021-02-10] MEDS ORDERED: CLOTR1CR TOP (08:39)
[2021-02-10] MEDS ORDERED: Sodium Chloride Nasal Spray (08:39)
[2021-02-10] MEDS ORDERED: ALBU8.5H INH (08:39)
[2021-02-10] MEDS ORDERED: ABIL10TA9 PO (08:39)
[2021-02-10] MEDS ORDERED: TRAZ-252 PO (08:39)
[2021-02-11] MEDS ORDERED: CYMB60CA4 PO (12:06)
== END 2021-02-10 09:33 | disposition home or self-care (01) | DRG 755 ==
LOC: M ED 10:47 → M ED INP 19:26 → EEVIPCON 19:26 → M PSY 02-02 00:15
PROVIDERS: ADMIT Student in an Organized Health Care Education/Training Program; ATTEND Student in an Organized Health Care Education/Training Program
DX: F43.9 Reaction to severe stress, unspecified (principal); E46 Unspecified protein-calorie malnutrition; Q87.2 Congenital malformation syndromes predominantly involving limbs; F63.81 Intermittent explosive disorder; F12.10 Cannabis abuse, uncomplicated; F60.3 Borderline personality disorder; F60.2 Antisocial personality disorder; Z86.14 Personal history of Methicillin resistant Staphylococcus aureus infection; Z68.1 Body mass index [BMI] 19.9 or less, adult; J45.909 Unspecified asthma, uncomplicated; Z79.899 Other long term (current) drug therapy; Z88.0 Allergy status to penicillin; Z88.1 Allergy status to other antibiotic agents; F29 Unspecified psychosis not due to a substance or known physiological condition; F45.1 Undifferentiated somatoform disorder; Q71.4 Longitudinal reduction defect of radius

== ENCOUNTER → 2021-03-17 | Outpatient (CLI) | payer OTHER ==
[~2021-03-17] MED LIST changes: +ABIL10TA9 PO; +CEFD1CAP8 PO; -CEFD300C41 PO; +CLOTR1CR TOP; +CYMB1CAP5 PO; +CYMB60CA4 PO; +FLUTISP NARES; -OMEP-173 PO; +OMEP-218 PO; +OMEP-221; +OMEP-221 PO; -OMEP40CA5; +Sodium Chloride Nasal Spray; +TRAZ-252 PO
== END ==
LOC: M LABSMTC 13:22
PROVIDERS: ATTEND Pediatrics
DX: Z20.822 Contact with and (suspected) exposure to COVID-19 (principal)
CPT/HCPCS: C9803; U0003

== ENCOUNTER → 2021-03-17 | Outpatient (CLI) | payer OTHER ==
[2021-03-17 12:56] LABS: BASO # 0.1 10^3/uL (0.0-0.2); BASO % 0.5 % (0.0-1.0); EOS # 0.3 10^3/uL (0.0-0.5); EOS % 2.5 % (0.0-3.0); HEMOGLOBIN 15.4 g/dl (13.5-17.5); LYMPH # 1.5 10^3/uL (1.5-5.0); LYMPH % 14.7 % (24.0-44.0); MEAN CORPUSCULAR HEMOGLOBIN 27.1 pg (27.0-33.0); MEAN CORPUSCULAR HGB CONC 33.5 g/dl (32.0-36.5); MEAN CORPUSCULAR VOLUME 80.8 fl (80.0-96.0); MONO # 0.4 10^3/uL (0.0-0.8); MONO % 4.2 % (2.0-8.0); NEUTROPHILS # 7.9 10^3/uL (1.5-8.5); NEUTROPHILS % 77.3 % (36.0-66.0); PLATELET COUNT, AUTOMATED 116 10^3/uL (150-450); RED BLOOD COUNT 5.69 10^6/uL (4.30-6.10); WHITE BLOOD COUNT 10.2 10^3/uL (4.0-10.0)
[2021-03-17 13:45] LABS: ALBUMIN 4.5 GM/DL (3.2-5.2); ALT/SGPT 19 U/L (12-78); BILIRUBIN,TOTAL 0.8 MG/DL (0.2-1.0); BLOOD UREA NITROGEN 9 MG/DL (7-18); CALCIUM LEVEL 8.9 MG/DL (8.5-10.1); CARBON DIOXIDE LEVEL 30 MEQ/L (21-32); CHLORIDE LEVEL 106 MEQ/L (98-107); CREATININE FOR GFR 1.05 MG/DL (0.70-1.30); GLOMERULAR FILTRATION RATE > 60.0 (>60); GLUCOSE, FASTING 107 MG/DL (70-100); LDH LACTATE DEHYDROGENASE 191 U/L (87-241); POTASSIUM SERUM 3.6 MEQ/L (3.5-5.1); SODIUM LEVEL 141 MEQ/L (136-145); TOTAL PROTEIN 7.1 GM/DL (6.4-8.2)
== END ==
LOC: M LAB 11:46
DX: Q87.2 Congenital malformation syndromes predominantly involving limbs (principal)

== ENCOUNTER 2021-05-07 13:49 | Emergency (ER) | payer OTHER, MEDICAID ==
[~2021-05-07 13:49] MED LIST changes: -CEFD1CAP8 PO; +CEFD300C41 PO; +OMEP-173 PO; -OMEP-218 PO; -OMEP-221; -OMEP-221 PO; +OMEP40CA5; +OMEP40CA5 PO
[2021-05-07 14:12] VITALS: BP 120/70
[2021-05-07] MEDS: GI COCKTAIL 50ML BTL(HYOSCYAMINE/MAALOX/LIDOCAINE VISCOUS)(1:3:1) PO ONE (14:45)
[2021-05-07] MEDS: ONDANSETRON 4 MG ORAL DISINTEGRATING TAB PO ONE (14:45)
[2021-05-07 14:47] LABS: HEMATOCRIT 44.8 % (42.0-52.0); HEMOGLOBIN 15.9 g/dl (13.5-17.5); MEAN CORPUSCULAR HEMOGLOBIN 27.5 pg (27.0-33.0); MEAN CORPUSCULAR HGB CONC 35.5 g/dl (32.0-36.5); MEAN CORPUSCULAR VOLUME 77.4 fl (80.0-96.0); PLATELET COUNT, AUTOMATED 152 10^3/uL (150-450); RED BLOOD COUNT 5.79 10^6/uL (4.30-6.10); WHITE BLOOD COUNT 9.1 10^3/uL (4.0-10.0)
[2021-05-07 15:27] LABS: ACETAMINOPHEN LEVEL < 2.0 UG/ML (10.0-30.0); ALBUMIN 4.9 GM/DL (3.2-5.2); ALT/SGPT 16 U/L (12-78); BILIRUBIN,DIRECT 0.3 MG/DL (0.0-0.2); BILIRUBIN,TOTAL 1.3 MG/DL (0.2-1.0); BLOOD UREA NITROGEN 17 MG/DL (7-18); CALCIUM LEVEL 9.4 MG/DL (8.5-10.1); CARBON DIOXIDE LEVEL 22 MEQ/L (21-32); CHLORIDE LEVEL 109 MEQ/L (98-107); CREATININE FOR GFR 1.29 MG/DL (0.70-1.30); ETHYL ALCOHOL (ETHANOL) 0.006 % (0.000-0.010); GLOMERULAR FILTRATION RATE > 60.0 (>60); GLUCOSE, FASTING 83 MG/DL (70-100); LIPASE 63 U/L (73-393); POTASSIUM SERUM 3.5 MEQ/L (3.5-5.1); SALICYLATE LEVEL < 1.7 MG/DL (5.0-30.0); SODIUM LEVEL 140 MEQ/L (136-145); THYROID STIMULATING HORMONE 0.616 uIU/ML (0.358-3.740); TOTAL PROTEIN 7.7 GM/DL (6.4-8.2)
[2021-05-07 18:53] LABS: AMPHETAMINES LEVEL URINE NEGATIVE (NEGATIVE); BARBITURATES URINE NEGATIVE (NEGATIVE); BENZODIAZEPINES URINE NEGATIVE (NEGATIVE); CANNABINOIDS URINE POSITIVE (NEGATIVE); COCAINE METABOLITE URINE NEGATIVE (NEGATIVE); METHADONE URINE NEGATIVE (NEGATIVE); OPIATES URINE NEGATIVE (NEGATIVE); PHENCYCLIDINE URINE NEGATIVE (NEGATIVE)
== END 2021-05-07 19:45 | disposition home or self-care (01) ==
LOC: M ED 13:49
DX: F43.0 Acute stress reaction (principal); F32.A Depression, unspecified; F90.9 Attention-deficit hyperactivity disorder, unspecified type; K21.9 Gastro-esophageal reflux disease without esophagitis; Z79.899 Other long term (current) drug therapy; Z88.0 Allergy status to penicillin; Z88.1 Allergy status to other antibiotic agents; Z98.890 Other specified postprocedural states
CPT/HCPCS: 36415; 80048; 80076; 80143; 80307; 82077; 83690; 84443; 85027; 99284; Q0162

== ENCOUNTER → 2021-10-05 | Outpatient (CLI) | payer OTHER, MEDICAID ==
[~2021-10-05] MED LIST changes: +ALBU2.5V10 INH; -ALBU83IN INH
[2021-10-05 16:05] LABS: BASO % 0.3 % (0.0-1.0); EOS # 0.1 10^3/uL (0.0-0.5); EOS % 0.4 % (0.0-3.0); HEMATOCRIT 49.2 % (42.0-52.0); HEMOGLOBIN 16.8 g/dl (13.5-17.5); LYMPH # 1.4 10^3/uL (1.5-5.0); MEAN CORPUSCULAR HEMOGLOBIN 27.1 pg (27.0-33.0); MEAN CORPUSCULAR HGB CONC 34.1 g/dl (32.0-36.5); MEAN CORPUSCULAR VOLUME 79.5 fl (80.0-96.0); MONO # 0.5 10^3/uL (0.0-0.8); MONO % 3.5 % (2.0-8.0); NEUTROPHILS % 84.3 % (36.0-66.0); PLATELET COUNT, AUTOMATED 139 10^3/uL (150-450); RED BLOOD COUNT 6.19 10^6/uL (4.30-6.10); WHITE BLOOD COUNT 13.1 10^3/uL (4.0-10.0)
[2021-10-05 16:10] LABS: APPEARANCE, URINE CLEAR (CLEAR); BACTERIA, URINE AUTO NEGATIVE (NEGATIVE); BILIRUBIN, URINE AUTO NEGATIVE (NEGATIVE); BLOOD, URINE BLOOD NEGATIVE (NEGATIVE); COLOR, URINE YELLOW (YELLOW); GLUCOSE, URINE (UA) AUTO NEGATIVE (NEGATIVE); KETONE, URINE AUTO 1+ mg/dL (NEGATIVE); LEUKOCYTE ESTERASE, URINE AUTO NEGATIVE (NEGATIVE); MUCUS, URINE SMALL (NEGATIVE); NITRITE, URINE AUTO NEGATIVE (NEGATIVE); PROTEIN, URINE AUTO NEGATIVE (NEGATIVE); RBC, URINE AUTO 0 /HPF (0-3); SPECIFIC GRAVITY URINE AUTO 1.026 (1.002-1.035); SQUAMOUS EPITHELIAL CELL UR AU 0 /HPF (0-6); WBC, URINE AUTO 1 /HPF (0-3)
[2021-10-05 17:38] LABS: ALBUMIN 5.4 GM/DL (3.2-5.2); ALT/SGPT 17 U/L (12-78); AMYLASE 37 U/L (25-115); BILIRUBIN,TOTAL 1.8 MG/DL (0.2-1.0); BLOOD UREA NITROGEN 15 MG/DL (7-18); CALCIUM LEVEL 9.5 MG/DL (8.5-10.1); CARBON DIOXIDE LEVEL 26 MEQ/L (21-32); CHLORIDE LEVEL 107 MEQ/L (98-107); CREATININE FOR GFR 1.19 MG/DL (0.70-1.30); GLOMERULAR FILTRATION RATE > 60.0 (>60); GLUCOSE, FASTING 131 MG/DL (70-100); LIPASE 104 U/L (73-393); POTASSIUM SERUM 3.8 MEQ/L (3.5-5.1); SODIUM LEVEL 139 MEQ/L (136-145); THYROID STIMULATING HORMONE 0.677 uIU/ML (0.358-3.740); TOTAL PROTEIN 8.5 GM/DL (6.4-8.2)
== END ==
LOC: M RAD 14:37
PROVIDERS: ATTEND Physician Assistant
DX: M79.601 Pain in right arm (principal)

== ENCOUNTER → 2021-11-12 | Outpatient (CLI) | payer OTHER | LOC: M PLAIMG 07:03 | PROVIDERS: ATTEND Physician Assistant | DX: M54.2 Cervicalgia (principal) ==

== ENCOUNTER → 2021-12-23 | Outpatient (REF) | payer OTHER ==
[~2021-12-23] MED LIST changes: +FAMO20TA5 PO; +MULT-40 PO; +VENTAER INH; +VITMTA PO
== END ==
LOC: M SFHCPLAZ 10:14
PROVIDERS: ATTEND Physician Assistant
DX: Z20.822 Contact with and (suspected) exposure to COVID-19 (principal)

== ENCOUNTER → 2022-02-15 | Outpatient (CLI) | payer OTHER ==
[2022-02-15 17:07] LABS: BASO % 0.6 % (0.0-1.0); EOS # 0.1 10^3/uL (0.0-0.5); EOS % 1.7 % (0.0-3.0); HEMATOCRIT 43.9 % (42.0-52.0); HEMOGLOBIN 14.8 g/dl (13.5-17.5); LYMPH # 1.2 10^3/uL (1.5-5.0); LYMPH % 18.7 % (24.0-44.0); MEAN CORPUSCULAR HEMOGLOBIN 27.5 pg (27.0-33.0); MEAN CORPUSCULAR HGB CONC 33.7 g/dl (32.0-36.5); MEAN CORPUSCULAR VOLUME 81.4 fl (80.0-96.0); MONO # 0.3 10^3/uL (0.0-0.8); MONO % 4.6 % (2.0-8.0); NEUTROPHILS # 4.9 10^3/uL (1.5-8.5); NEUTROPHILS % 73.5 % (36.0-66.0); PLATELET COUNT, AUTOMATED 152 10^3/uL (150-450); RED BLOOD COUNT 5.39 10^6/uL (4.30-6.10); WHITE BLOOD COUNT 6.6 10^3/uL (4.0-10.0)
[2022-02-15 18:08] LABS: IRON (FE) 60 UG/DL (65-175); PERCENT SATURATION 18.6 % (19.7-50.0); TOTAL IRON BINDING CAPACITY 322 UG/DL (250-425)
[2022-02-15 18:10] LABS: ALBUMIN 4.7 G/DL (3.2-5.2); ALKALINE PHOSPHATASE 50 U/L (46-116); ALT/SGPT 12 U/L (7.0-40); AST/SGOT 17 U/L (<34); BILIRUBIN,TOTAL 0.9 MG/DL (0.3-1.2); BLOOD UREA NITROGEN 14 MG/DL (9-23); CALCIUM LEVEL 9.2 MG/DL (8.5-10.1); CARBON DIOXIDE LEVEL 26 MMOL/L (20-31); CHLORIDE LEVEL 105 MMOL/L (98-107); CREATININE FOR GFR 0.91 MG/DL (0.70-1.30); FOLATE > 24.0 NG/ML (>5.4); GLOMERULAR FILTRATION RATE > 60.0 (>60); GLUCOSE, FASTING 88 MG/DL (60-100); POTASSIUM SERUM 3.9 MMOL/L (3.5-5.1); SODIUM LEVEL 140 MMOL/L (136-145); TOTAL PROTEIN 7.4 G/DL (5.7-8.2); VITAMIN B12 LEVEL 483 PG/ML (211-911)
== END ==
LOC: M PLALAB 14:57
PROVIDERS: ATTEND Physician Assistant
DX: E61.1 Iron deficiency (principal)

== ENCOUNTER 2022-05-31 16:00 | Inpatient (IN) | payer MEDICAID, OTHER ==
[~2022-05-31] VITALS: Ht 157.5 cm; Wt 92.0 kg
[~2022-05-31 16:00] MED LIST changes: +FLUT50SP17 NARES; -FLUTISP NARES
[2022-05-31 17:50] LABS: AMPHETAMINES LEVEL URINE NEGATIVE (NEGATIVE); BARBITURATES URINE NEGATIVE (NEGATIVE); BENZODIAZEPINES URINE NEGATIVE (NEGATIVE); COCAINE METABOLITE URINE NEGATIVE (NEGATIVE); METHADONE URINE NEGATIVE (NEGATIVE)
[2022-05-31 17:51] LABS: OPIATES URINE NEGATIVE (NEGATIVE); PHENCYCLIDINE URINE NEGATIVE (NEGATIVE)
[2022-05-31 17:52] LABS: CANNABINOIDS URINE POSITIVE (NEGATIVE)
[2022-05-31 17:56] LABS: HEMATOCRIT 43.3 % (42.0-52.0); HEMOGLOBIN 15.1 g/dl (13.5-17.5); MEAN CORPUSCULAR HEMOGLOBIN 27.6 pg (27.0-33.0); MEAN CORPUSCULAR HGB CONC 34.9 g/dl (32.0-36.5); PLATELET COUNT, AUTOMATED 146 10^3/uL (150-450); RED BLOOD COUNT 5.48 10^6/uL (4.30-6.10); WHITE BLOOD COUNT 18.2 10^3/uL (4.0-10.0)
[2022-05-31 18:05] LABS: ETHYL ALCOHOL (ETHANOL) 0.005 % (0.000-0.010)
[2022-05-31 18:06] LABS: ACETAMINOPHEN LEVEL < 2.0 UG/ML (10.0-20.0)
[2022-05-31 18:07] LABS: SALICYLATE LEVEL < 3.0 MG/DL (<30)
[2022-05-31 18:11] LABS: ALKALINE PHOSPHATASE 44 U/L (46-116); ALT/SGPT 21 U/L (7.0-40); AST/SGOT 26 U/L (<34); BILIRUBIN,DIRECT 0.5 MG/DL (<0.4); BILIRUBIN,TOTAL 1.9 MG/DL (0.3-1.2); BLOOD UREA NITROGEN 17 MG/DL (9-23); CALCIUM LEVEL 9.5 MG/DL (8.5-10.1); CARBON DIOXIDE LEVEL 22 MMOL/L (20-31); CHLORIDE LEVEL 100 MMOL/L (98-107); CREATININE FOR GFR 0.77 MG/DL (0.70-1.30); GLOMERULAR FILTRATION RATE > 60.0 (>60); GLUCOSE, FASTING 88 MG/DL (60-100); POTASSIUM SERUM 3.2 MMOL/L (3.5-5.1); SODIUM LEVEL 133 MMOL/L (136-145); THYROID STIMULATING HORMONE 1.733 uIU/ML (0.55-4.78); TOTAL PROTEIN 7.3 G/DL (5.7-8.2)
[2022-05-31] MEDS ORDERED: POTASSIUM CHLORIDE 10MEQ SR TABLET PO ONE (18:20)
[2022-05-31] MEDS ORDERED: MIDAZOLAM 5MG/ML 1ML VIAL IM ONE (18:25)
[2022-05-31] MEDS ORDERED: IBUPROFEN 400MG TAB PO ONE (20:35)
[2022-05-31] MEDS ORDERED: MIDAZOLAM INJ 2MG/2ML VIAL IM ONE (20:45)
[2022-05-31] MEDS ORDERED: HALOPERIDOL 5MG/ML 1ML VIAL IM STA (22:50)
[2022-06-01] MEDS ORDERED: POTASSIUM CHLORIDE 10% LIQ 20MEQ/15ML UDC PO ONE (00:05)
[2022-06-01] MEDS ORDERED: traZODone 50 MG TAB PO PRN (02:25)
[2022-06-01] MEDS ORDERED: LORazepam 1 MG TAB PO PRN (02:25)
[2022-06-01 02:52] VITALS: BP 118/65
[2022-06-01] MEDS ORDERED: B-1100TA2 PO (03:34)
[2022-06-01] MEDS ORDERED: PANT-23 PO (03:34)
[2022-06-01] MEDS ORDERED: FERR1TAB8 PO (03:34)
[2022-06-01] MEDS ORDERED: VITMTA PO (03:34)
[2022-06-01] MEDS ORDERED: HOME MED LIST COMPLETE! XX SCH (03:35)
[2022-06-01] MEDS: QUEtiapine FUMARATE 200 MG TAB PO SCH ×2 (03:49→20:04)
[2022-06-01] MEDS: THIAMINE 100 MG TAB PO SCH (09:00)
[2022-06-01] MEDS: FLUTICASONE PROP 0.05% NASAL SPRAY 16 GM (FLONASE) NARES SCH ×2 (09:00→20:04)
[2022-06-01] MEDS: PANTOPRAZOLE 40MG TAB (PROTONIX) PO SCH (09:00)
[2022-06-01] MEDS: ALBUTEROL 90 MCG/ACT 8GM HFA INHALER INH PRN ×2 (09:43→19:33)
[2022-06-01] MEDS: diphenhydrAMINE 25MG CAP PO PRN (11:00)
[2022-06-01] MEDS: OLANZapine 2.5MG TABLET PO SCH ×2 (11:21→20:04)
[2022-06-01] MEDS ORDERED: LORATADINE 10 MG TAB PO ONE (12:55)
[2022-06-01] MEDS ORDERED: CEPACOL LOZENGE PO PRN (12:55)
[2022-06-01 17:57] VITALS: BP 122/70
[2022-06-01] MEDS: MAALOX 30 ML SUSP *UDC PO PRN (20:21)
[2022-06-02 06:49] VITALS: BP 127/56
[2022-06-02] MEDS: OLANZapine 2.5MG TABLET PO SCH ×2 (09:00→22:05)
[2022-06-02] MEDS: FLUTICASONE PROP 0.05% NASAL SPRAY 16 GM (FLONASE) NARES SCH ×3 (09:00→22:05)
[2022-06-02] MEDS: THIAMINE 100 MG TAB PO SCH (09:46)
[2022-06-02] MEDS: PANTOPRAZOLE 40MG TAB (PROTONIX) PO SCH (09:46)
[2022-06-02] MEDS: LORATADINE 10 MG TAB PO SCH (09:46)
[2022-06-02] MEDS: ALBUTEROL 90 MCG/ACT 8GM HFA INHALER INH PRN (11:13)
[2022-06-02] MEDS: MOM 30ML SUSPENSION UDC PO PRN (13:25)
[2022-06-02] MEDS: diphenhydrAMINE 25MG CAP PO PRN (13:39)
[2022-06-02 18:26] VITALS: BP 123/79
[2022-06-02] MEDS: QUEtiapine FUMARATE 200 MG TAB PO SCH (22:05)
[2022-06-03 06:51] VITALS: BP 139/70
[2022-06-03 07:31] LABS: BASO % 0.6 % (0.0-1.0); EOS # 0.2 10^3/uL (0.0-0.5); EOS % 3.2 % (0.0-3.0); HEMATOCRIT 41.1 % (42.0-52.0); HEMOGLOBIN 13.8 g/dl (13.5-17.5); LYMPH # 1.7 10^3/uL (1.5-5.0); LYMPH % 25.7 % (24.0-44.0); MEAN CORPUSCULAR HEMOGLOBIN 27.3 pg (27.0-33.0); MEAN CORPUSCULAR HGB CONC 33.6 g/dl (32.0-36.5); MEAN CORPUSCULAR VOLUME 81.2 fl (80.0-96.0); MONO # 0.3 10^3/uL (0.0-0.8); NEUTROPHILS # 4.3 10^3/uL (1.5-8.5); NEUTROPHILS % 65.3 % (36.0-66.0); PLATELET COUNT, AUTOMATED 122 10^3/uL (150-450); RED BLOOD COUNT 5.06 10^6/uL (4.30-6.10); WHITE BLOOD COUNT 6.6 10^3/uL (4.0-10.0)
[2022-06-03] MEDS: FLUTICASONE PROP 0.05% NASAL SPRAY 16 GM (FLONASE) NARES SCH ×2 (09:00→21:00)
[2022-06-03] MEDS: FERROUS SULFATE 325MG TAB PO SCH (09:39)
[2022-06-03] MEDS: OLANZapine 2.5MG TABLET PO SCH ×2 (09:39→21:21)
[2022-06-03] MEDS: LORATADINE 10 MG TAB PO SCH (09:39)
[2022-06-03] MEDS: PANTOPRAZOLE 40MG TAB (PROTONIX) PO SCH (09:40)
[2022-06-03] MEDS: THIAMINE 100 MG TAB PO SCH (09:40)
[2022-06-03 18:09] VITALS: BP 143/76
[2022-06-03] MEDS: QUEtiapine FUMARATE 200 MG TAB PO SCH (21:00)
[2022-06-03] MEDS: diphenhydrAMINE 25MG CAP PO PRN (21:50)
[2022-06-04 06:22] VITALS: BP 114/75
[2022-06-04] MEDS: PANTOPRAZOLE 40MG TAB (PROTONIX) PO SCH (07:55)
[2022-06-04] MEDS: OLANZapine 2.5MG TABLET PO SCH ×2 (07:55→20:26)
[2022-06-04] MEDS: MOM 30ML SUSPENSION UDC PO PRN (07:55)
[2022-06-04] MEDS: THIAMINE 100 MG TAB PO SCH (07:55)
[2022-06-04] MEDS: LORATADINE 10 MG TAB PO SCH (07:55)
[2022-06-04] MEDS: FLUTICASONE PROP 0.05% NASAL SPRAY 16 GM (FLONASE) NARES SCH ×4 (07:58→22:00)
[2022-06-04] MEDS: ACETAMINOPHEN TAB 650MG DOSE (2X325MG) PO PRN (15:14)
[2022-06-04 18:15] VITALS: BP 127/70
[2022-06-04] MEDS: QUEtiapine FUMARATE 200 MG TAB PO SCH (20:26)
[2022-06-05 06:36] VITALS: BP 112/71
[2022-06-05] MEDS: FLUTICASONE PROP 0.05% NASAL SPRAY 16 GM (FLONASE) NARES SCH ×3 (09:00→23:13)
[2022-06-05] MEDS: OLANZapine 2.5MG TABLET PO SCH (09:35)
[2022-06-05] MEDS: PANTOPRAZOLE 40MG TAB (PROTONIX) PO SCH (09:35)
[2022-06-05] MEDS: LORATADINE 10 MG TAB PO SCH (09:36)
[2022-06-05] MEDS: THIAMINE 100 MG TAB PO SCH (09:36)
[2022-06-05 09:49] VITALS: BP 143/95
[2022-06-05] MEDS: ACETAMINOPHEN TAB 650MG DOSE (2X325MG) PO PRN (18:31)
[2022-06-05 18:35] VITALS: BP 136/81
[2022-06-05] MEDS: QUEtiapine FUMARATE 200 MG TAB PO SCH (19:59)
[2022-06-06 06:27] VITALS: BP 135/75
[2022-06-06] MEDS: OLANZapine 2.5MG TABLET PO SCH (08:22)
[2022-06-06] MEDS: THIAMINE 100 MG TAB PO SCH (08:23)
[2022-06-06] MEDS: FLUTICASONE PROP 0.05% NASAL SPRAY 16 GM (FLONASE) NARES SCH ×2 (08:23→21:55)
[2022-06-06] MEDS: LORATADINE 10 MG TAB PO SCH (08:23)
[2022-06-06] MEDS: PANTOPRAZOLE 40MG TAB (PROTONIX) PO SCH (08:23)
[2022-06-06] MEDS: diphenhydrAMINE 25MG CAP PO PRN (10:23)
[2022-06-06] MEDS: OLANZapine ORAL DISINTEGRATING TAB 5MG PO PRN (15:40)
[2022-06-06 19:01] VITALS: BP 133/94
[2022-06-06] MEDS: QUEtiapine FUMARATE 200 MG TAB PO SCH (21:55)
[2022-06-07 06:49] VITALS: BP 133/66
[2022-06-07] MEDS: THIAMINE 100 MG TAB PO SCH (08:11)
[2022-06-07] MEDS: FLUTICASONE PROP 0.05% NASAL SPRAY 16 GM (FLONASE) NARES SCH ×2 (08:11→20:11)
[2022-06-07] MEDS: OLANZapine 2.5MG TABLET PO SCH (08:11)
[2022-06-07] MEDS: PANTOPRAZOLE 40MG TAB (PROTONIX) PO SCH (08:11)
[2022-06-07] MEDS: LORATADINE 10 MG TAB PO SCH (08:11)
[2022-06-07] MEDS: FERROUS SULFATE 325MG TAB PO SCH (08:11)
[2022-06-07 16:28] VITALS: BP 137/80
[2022-06-07] MEDS: QUEtiapine FUMARATE 200 MG TAB PO SCH (20:11)
[2022-06-08 06:45] VITALS: BP 135/81
[2022-06-08] MEDS: FLUTICASONE PROP 0.05% NASAL SPRAY 16 GM (FLONASE) NARES SCH ×2 (09:00→21:00)
[2022-06-08] MEDS: THIAMINE 100 MG TAB PO SCH (09:45)
[2022-06-08] MEDS: LORATADINE 10 MG TAB PO SCH (09:45)
[2022-06-08] MEDS: OLANZapine 2.5MG TABLET PO SCH (09:45)
[2022-06-08] MEDS: PANTOPRAZOLE 40MG TAB (PROTONIX) PO SCH (09:45)
[2022-06-08] MEDS: OLANZapine ORAL DISINTEGRATING TAB 5MG PO PRN (14:22)
[2022-06-08 16:30] VITALS: BP 130/80
[2022-06-08 18:34] LABS: BASO # 0.1 10^3/uL (0.0-0.2); BASO % 0.6 % (0.0-1.0); EOS # 0.3 10^3/uL (0.0-0.5); EOS % 3.2 % (0.0-3.0); HEMATOCRIT 44.2 % (42.0-52.0); HEMOGLOBIN 15.6 g/dl (13.5-17.5); LYMPH # 1.7 10^3/uL (1.5-5.0); LYMPH % 18.3 % (24.0-44.0); MEAN CORPUSCULAR HEMOGLOBIN 28.1 pg (27.0-33.0); MEAN CORPUSCULAR HGB CONC 35.3 g/dl (32.0-36.5); MEAN CORPUSCULAR VOLUME 79.6 fl (80.0-96.0); MONO # 0.4 10^3/uL (0.0-0.8); MONO % 4.3 % (2.0-8.0); NEUTROPHILS # 6.5 10^3/uL (1.5-8.5); NEUTROPHILS % 72.5 % (36.0-66.0); PLATELET COUNT, AUTOMATED 136 10^3/uL (150-450); RED BLOOD COUNT 5.55 10^6/uL (4.30-6.10)
[2022-06-08 18:53] LABS: ALBUMIN 4.9 G/DL (3.2-5.2); ALKALINE PHOSPHATASE 59 U/L (46-116); ALT/SGPT 17 U/L (7.0-40); AST/SGOT 19 U/L (<34); BILIRUBIN,TOTAL 0.9 MG/DL (0.3-1.2); BLOOD UREA NITROGEN 19 MG/DL (9-23); CALCIUM LEVEL 9.8 MG/DL (8.5-10.1); CARBON DIOXIDE LEVEL 24 MMOL/L (20-31); CHLORIDE LEVEL 105 MMOL/L (98-107); CREATININE FOR GFR 0.76 MG/DL (0.70-1.30); GLOMERULAR FILTRATION RATE > 60.0 (>60); GLUCOSE, FASTING 87 MG/DL (60-100); SODIUM LEVEL 141 MMOL/L (136-145); TOTAL PROTEIN 7.5 G/DL (5.7-8.2)
[2022-06-08 19:22] VITALS: BP 139/65
[2022-06-08] MEDS ORDERED: IBUPROFEN 400MG TAB PO ONE (19:25)
[2022-06-08] MEDS: QUEtiapine FUMARATE 200 MG TAB PO SCH (20:01)
[2022-06-09 06:49] VITALS: BP 140/71
[2022-06-09] MEDS: FLUTICASONE PROP 0.05% NASAL SPRAY 16 GM (FLONASE) NARES SCH ×3 (09:00→21:40)
[2022-06-09] MEDS: PANTOPRAZOLE 40MG TAB (PROTONIX) PO SCH (09:05)
[2022-06-09] MEDS: OLANZapine 2.5MG TABLET PO SCH (09:05)
[2022-06-09] MEDS: LORATADINE 10 MG TAB PO SCH (09:05)
[2022-06-09] MEDS: THIAMINE 100 MG TAB PO SCH (09:06)
[2022-06-09] MEDS: ALBUTEROL 90 MCG/ACT 8GM HFA INHALER INH PRN (09:49)
[2022-06-09] MEDS ORDERED: diphenhydrAMINE 50MG/ML VIAL IM STA (10:34)
[2022-06-09] MEDS ORDERED: LORazepam 2 MG/ML 1ML VIAL IM STA (10:34)
[2022-06-09] MEDS ORDERED: HALOPERIDOL 5MG/ML 1ML VIAL IM STA (10:34)
[2022-06-09 17:05] VITALS: BP 121/71
[2022-06-09] MEDS: QUEtiapine FUMARATE 200 MG TAB PO SCH (21:40)
[2022-06-10 06:10] VITALS: BP 124/75
[2022-06-10] MEDS: FLUTICASONE PROP 0.05% NASAL SPRAY 16 GM (FLONASE) NARES SCH ×2 (09:12→21:40)
[2022-06-10] MEDS: OLANZapine 2.5MG TABLET PO SCH (09:12)
[2022-06-10] MEDS: LORATADINE 10 MG TAB PO SCH (09:12)
[2022-06-10] MEDS: FERROUS SULFATE 325MG TAB PO SCH (09:12)
[2022-06-10] MEDS: PANTOPRAZOLE 40MG TAB (PROTONIX) PO SCH (09:12)
[2022-06-10] MEDS: THIAMINE 100 MG TAB PO SCH (09:12)
[2022-06-10] MEDS: MOM 30ML SUSPENSION UDC PO PRN (10:28)
[2022-06-10 16:35] VITALS: BP 120/69
[2022-06-10] MEDS: QUEtiapine FUMARATE 200 MG TAB PO SCH (20:07)
[2022-06-10] MEDS: MAALOX 30 ML SUSP *UDC PO PRN (21:41)
[2022-06-10] MEDS ORDERED: MIRALAX *UNIT DOSE* 17GM PACKET PO PRN (21:55)
[2022-06-10 22:28] VITALS: BP 129/78
[2022-06-10] MEDS: LACTULOSE 20GM/30ML SYRUP UDC PO ONE (23:00)
[2022-06-11] MEDS: FLUTICASONE PROP 0.05% NASAL SPRAY 16 GM (FLONASE) NARES SCH ×3 (09:00→20:15)
[2022-06-11] MEDS: THIAMINE 100 MG TAB PO SCH (09:10)
[2022-06-11] MEDS: OLANZapine 2.5MG TABLET PO SCH (09:10)
[2022-06-11] MEDS: PANTOPRAZOLE 40MG TAB (PROTONIX) PO SCH (09:10)
[2022-06-11] MEDS: LORATADINE 10 MG TAB PO SCH (09:10)
[2022-06-11] MEDS: ALBUTEROL 90 MCG/ACT 8GM HFA INHALER INH PRN ×2 (10:19→18:38)
[2022-06-11] MEDS: MAALOX 30 ML SUSP *UDC PO PRN (10:24)
[2022-06-11] MEDS ORDERED: BENZONATATE 100MG CAPSULE PO PRN (11:35)
[2022-06-11] MEDS ORDERED: CHLORASEPTIC SPRAY MT PRN (11:35)
[2022-06-11 16:14] VITALS: BP 113/60
[2022-06-11] MEDS: QUEtiapine FUMARATE 200 MG TAB PO SCH (20:14)
[2022-06-11] MEDS: OLANZapine ORAL DISINTEGRATING TAB 5MG PO PRN (21:52)
[2022-06-12 06:53] VITALS: BP 125/60
[2022-06-12] MEDS: LORATADINE 10 MG TAB PO SCH (09:36)
[2022-06-12] MEDS: PANTOPRAZOLE 40MG TAB (PROTONIX) PO SCH (09:36)
[2022-06-12] MEDS: THIAMINE 100 MG TAB PO SCH (09:36)
[2022-06-12] MEDS: FLUTICASONE PROP 0.05% NASAL SPRAY 16 GM (FLONASE) NARES SCH ×2 (09:36→20:15)
[2022-06-12] MEDS: OLANZapine 2.5MG TABLET PO SCH (09:36)
[2022-06-12 16:35] VITALS: BP 138/89
[2022-06-12] MEDS: QUEtiapine FUMARATE 200 MG TAB PO SCH (20:15)
[2022-06-13] MEDS: ALBUTEROL 90 MCG/ACT 8GM HFA INHALER INH PRN ×2 (00:30→14:53)
[2022-06-13 06:25] VITALS: BP 134/82
[2022-06-13] MEDS: FLUTICASONE PROP 0.05% NASAL SPRAY 16 GM (FLONASE) NARES SCH ×2 (09:00→20:00)
[2022-06-13] MEDS: PANTOPRAZOLE 40MG TAB (PROTONIX) PO SCH (09:56)
[2022-06-13] MEDS: LORATADINE 10 MG TAB PO SCH (09:56)
[2022-06-13] MEDS: OLANZapine 2.5MG TABLET PO SCH (09:56)
[2022-06-13] MEDS: THIAMINE 100 MG TAB PO SCH (09:56)
[2022-06-13 19:02] VITALS: BP 127/80
[2022-06-13] MEDS: QUEtiapine FUMARATE 200 MG TAB PO SCH (20:00)
[2022-06-13] MEDS: ACETAMINOPHEN TAB 650MG DOSE (2X325MG) PO PRN (20:58)
[2022-06-14 06:21] VITALS: BP 124/69
[2022-06-14] MEDS: FLUTICASONE PROP 0.05% NASAL SPRAY 16 GM (FLONASE) NARES SCH ×2 (09:00→20:03)
[2022-06-14] MEDS: PANTOPRAZOLE 40MG TAB (PROTONIX) PO SCH (09:36)
[2022-06-14] MEDS: FERROUS SULFATE 325MG TAB PO SCH (09:37)
[2022-06-14] MEDS: THIAMINE 100 MG TAB PO SCH (09:37)
[2022-06-14] MEDS: OLANZapine 2.5MG TABLET PO SCH (09:37)
[2022-06-14] MEDS: LORATADINE 10 MG TAB PO SCH (09:37)
[2022-06-14 17:38] VITALS: BP 142/77
[2022-06-14] MEDS: QUEtiapine FUMARATE 200 MG TAB PO SCH (20:03)
[2022-06-15 06:23] VITALS: BP 127/68
[2022-06-15] MEDS ORDERED: CLAR10TA7 PO (09:59)
[2022-06-15] MEDS ORDERED: VITMTA PO (09:59)
[2022-06-15] MEDS ORDERED: OLAN2.5T25 PO (09:59)
[2022-06-15] MEDS ORDERED: QUET200T2 PO (09:59)
[2022-06-15] MEDS ORDERED: MIRA1POW3 PO (09:59)
[2022-06-15] MEDS ORDERED: PANT-23 PO (09:59)
[2022-06-15] MEDS ORDERED: FERR1TAB8 PO (09:59)
[2022-06-15] MEDS: PANTOPRAZOLE 40MG TAB (PROTONIX) PO SCH (10:10)
[2022-06-15] MEDS: THIAMINE 100 MG TAB PO SCH (10:10)
[2022-06-15] MEDS: LORATADINE 10 MG TAB PO SCH (10:10)
[2022-06-15] MEDS: OLANZapine 2.5MG TABLET PO SCH (10:10)
[2022-06-15] MEDS: FLUTICASONE PROP 0.05% NASAL SPRAY 16 GM (FLONASE) NARES SCH (10:11)
== END 2022-06-15 10:37 | disposition home or self-care (01) | DRG 751 ==
LOC: M ED 16:00 → M ED INP 06-01 02:24 → UNDOADMIN 06-01 02:24 → M PSY 06-01 02:45 → M ED INP 06-01 02:57 → M PSY 06-01 02:57
PROVIDERS: ADMIT Psychiatry & Neurology Psychiatry; ATTEND Psychiatry & Neurology Psychiatry
DX: F29 Unspecified psychosis not due to a substance or known physiological condition (principal); Q87.2 Congenital malformation syndromes predominantly involving limbs; K76.0 Fatty (change of) liver, not elsewhere classified; F20.0 Paranoid schizophrenia; F79 Unspecified intellectual disabilities; Z78.1 Physical restraint status; Z91.128 Patient's intentional underdosing of medication regimen for other reason; J45.40 Moderate persistent asthma, uncomplicated; G43.909 Migraine, unspecified, not intractable, without status migrainosus; K21.9 Gastro-esophageal reflux disease without esophagitis; F60.2 Antisocial personality disorder; F60.0 Paranoid personality disorder; F12.10 Cannabis abuse, uncomplicated; F63.81 Intermittent explosive disorder; Z79.899 Other long term (current) drug therapy; Z88.0 Allergy status to penicillin; Z88.1 Allergy status to other antibiotic agents; Z91.040 Latex allergy status; K58.1 Irritable bowel syndrome with constipation; F45.1 Undifferentiated somatoform disorder; F90.9 Attention-deficit hyperactivity disorder, unspecified type; Q71.9 Unspecified reduction defect of upper limb; F43.10 Post-traumatic stress disorder, unspecified; R07.9 Chest pain, unspecified; Z91.51 Personal history of suicidal behavior; J11.1 Influenza due to unidentified influenza virus with other respiratory manifestations

== ENCOUNTER → 2022-07-28 | Outpatient (CLI) | payer OTHER ==
[~2022-07-28] MED LIST changes: +B-1100TA2 PO; +CLAR10TA7 PO; +FERR1TAB8 PO; +MIRA1POW3 PO; +OLAN2.5T25 PO; +PANT-23 PO; +POTA-298; -POTA1TAB14; +QUET200T2 PO
[2022-07-28 14:22] LABS: BASO % 0.3 % (0.0-1.0); EOS # 0.1 10^3/uL (0.0-0.5); EOS % 0.7 % (0.0-3.0); HEMATOCRIT 46.4 % (42.0-52.0); HEMOGLOBIN 15.7 g/dl (13.5-17.5); LYMPH % 9.6 % (24.0-44.0); MEAN CORPUSCULAR HEMOGLOBIN 27.5 pg (27.0-33.0); MEAN CORPUSCULAR HGB CONC 33.8 g/dl (32.0-36.5); MEAN CORPUSCULAR VOLUME 81.4 fl (80.0-96.0); MONO # 0.3 10^3/uL (0.0-0.8); MONO % 3.2 % (2.0-8.0); NEUTROPHILS # 9.1 10^3/uL (1.5-8.5); NEUTROPHILS % 85.4 % (36.0-66.0); PLATELET COUNT, AUTOMATED 138 10^3/uL (150-450); WHITE BLOOD COUNT 10.6 10^3/uL (4.0-10.0)
[2022-07-28 14:23] LABS: ALKALINE PHOSPHATASE 51 U/L (46-116); ALT/SGPT 21 U/L (7.0-40); AST/SGOT < 8 U/L (<34); BILIRUBIN,TOTAL 1.8 MG/DL (0.3-1.2); BLOOD UREA NITROGEN 15 MG/DL (9-23); CALCIUM LEVEL 9.5 MG/DL (8.5-10.1); CARBON DIOXIDE LEVEL 25 MMOL/L (20-31); CHLORIDE LEVEL 106 MMOL/L (98-107); CREATININE FOR GFR 1.01 MG/DL (0.70-1.30); GLOMERULAR FILTRATION RATE > 60.0 (>60); GLUCOSE, FASTING 83 MG/DL (60-100); POTASSIUM SERUM 3.7 MMOL/L (3.5-5.1); SODIUM LEVEL 140 MMOL/L (136-145); TOTAL PROTEIN 7.6 G/DL (5.7-8.2)
[2022-07-28 14:27] LABS: THYROID STIMULATING HORMONE 0.947 uIU/ML (0.55-4.78)
[2022-07-28 14:29] LABS: FREE T4 1.55 NG/DL (0.89-1.76)
[2022-07-28 15:22] LABS: ERYTHROCYTE SEDIMENTATION RATE < 1 mm/hr (0-15)
== END ==
LOC: M PLALAB 10:08
PROVIDERS: ATTEND Physician Assistant
DX: R21 Rash and other nonspecific skin eruption (principal)

== ENCOUNTER 2023-10-22 06:12 | Inpatient (IN) | payer MEDICAID, OTHER ==
[~2023-10-22] VITALS: Ht 157.5 cm; Wt 45.5 kg
[~2023-10-22 06:12] MED LIST changes: +CEFD1CAP9 PO; -CEFD300C41 PO; -FLUT50SP17 NARES; +FLUTISP NARES; -MIRA1POW3 PO; +MIRA33506 PO
[2023-10-22 07:40] LABS: AMPHETAMINES LEVEL URINE NEGATIVE (NEGATIVE)
[2023-10-22 07:41] LABS: BARBITURATES URINE NEGATIVE (NEGATIVE); BENZODIAZEPINES URINE NEGATIVE (NEGATIVE); COCAINE METABOLITE URINE NEGATIVE (NEGATIVE); METHADONE URINE NEGATIVE (NEGATIVE); OPIATES URINE NEGATIVE (NEGATIVE); PHENCYCLIDINE URINE NEGATIVE (NEGATIVE)
[2023-10-22 07:53] LABS: CANNABINOIDS URINE POSITIVE (NEGATIVE)
[2023-10-22] MEDS ORDERED: HOME MED LIST COMPLETE! XX SCH (07:55)
[2023-10-22] MEDS: ACETAMINOPHEN TAB 650MG DOSE (2X325MG) PO ONE ×2 (08:04→21:29)
[2023-10-22 13:47] LABS: HEMATOCRIT 40.7 % (42.0-52.0); HEMOGLOBIN 14.3 g/dl (13.5-17.5); MEAN CORPUSCULAR HEMOGLOBIN 28.1 pg (27.0-33.0); MEAN CORPUSCULAR HGB CONC 35.1 g/dl (32.0-36.5); MEAN CORPUSCULAR VOLUME 80.1 fl (80.0-96.0); PLATELET COUNT, AUTOMATED 142 10^3/uL (150-450); RED BLOOD COUNT 5.08 10^6/uL (4.30-6.10); WHITE BLOOD COUNT 7.5 10^3/uL (4.0-10.0)
[2023-10-22 14:12] LABS: ETHYL ALCOHOL (ETHANOL) < 0.003 % (0.000-0.010)
[2023-10-22 14:14] LABS: ALBUMIN 5.1 G/DL (3.2-5.2); ALKALINE PHOSPHATASE 36 U/L (46-116); ALT/SGPT 18 U/L (7.0-40); AST/SGOT 15 U/L (<34); BILIRUBIN,DIRECT 0.7 MG/DL (<0.4); BILIRUBIN,TOTAL 1.8 MG/DL (0.3-1.2); BLOOD UREA NITROGEN 9 MG/DL (9-23); CARBON DIOXIDE LEVEL 26 MMOL/L (20-31); CHLORIDE LEVEL 110 MMOL/L (98-107); CREATININE FOR GFR 0.94 MG/DL (0.70-1.30); GLOMERULAR FILTRATION RATE > 60.0 (>60); GLUCOSE, FASTING 86 MG/DL (60-100); SALICYLATE LEVEL < 3.0 MG/DL (<30); SODIUM LEVEL 141 MMOL/L (136-145); TOTAL PROTEIN 7.2 G/DL (5.7-8.2)
[2023-10-23] MEDS: ACETAMINOPHEN TAB 650MG DOSE (2X325MG) PO ONE ×2 (11:35→19:30)
[2023-10-23] MEDS ORDERED: MOM 30ML SUSPENSION UDC PO PRN (23:20)
[2023-10-23] MEDS ORDERED: MAALOX 30 ML SUSP *UDC PO PRN (23:20)
[2023-10-24 02:41] VITALS: BP 128/89; TEMP 97.1; O2SAT 100
[2023-10-24 16:12] VITALS: BP 120/71; TEMP 97.4; O2SAT 98
[2023-10-25 06:20] VITALS: BP 135/72; TEMP 97.9; O2SAT 99
[2023-10-25 16:02] VITALS: BP 124/79; TEMP 98.4; O2SAT 99
[2023-10-25] MEDS: ACETAMINOPHEN TAB 650MG DOSE (2X325MG) PO PRN (20:53)
[2023-10-25] MEDS: diphenhydrAMINE 25MG CAP PO PRN (23:17)
[2023-10-25] MEDS: traZODone 50 MG TAB PO PRN (23:25)
[2023-10-26 06:16] VITALS: BP 98/53; TEMP 98.4; O2SAT 95
[2023-10-26] MEDS ORDERED: hydrOXYzine 50 MG TAB PO SCH (09:00)
[2023-10-26] MEDS: IBUPROFEN 400MG TAB PO PRN (09:13)
[2023-10-26] MEDS ORDERED: hydrOXYzine 50 MG TAB PO PRN (11:00)
[2023-10-26 18:17] VITALS: BP 153/88; TEMP 97; O2SAT 100
[2023-10-26] MEDS: OLANZapine 5 MG TAB PO SCH (20:08)
[2023-10-27 06:20] VITALS: BP 119/70; TEMP 97.4; O2SAT 95
== END 2023-10-27 11:03 | disposition home or self-care (01) | DRG 752 ==
LOC: M ED 06:12 → M ED INP 10-23 23:19 → M PSY 10-24 01:53
PROVIDERS: ADMIT Psychiatry & Neurology Psychiatry; ATTEND Psychiatry & Neurology Child & Adolescent Psychiatry
DX: F60.0 Paranoid personality disorder (principal); F29 Unspecified psychosis not due to a substance or known physiological condition; Z88.0 Allergy status to penicillin; Z88.1 Allergy status to other antibiotic agents; Z91.041 Radiographic dye allergy status; M54.2 Cervicalgia; G89.29 Other chronic pain; F60.3 Borderline personality disorder; F60.2 Antisocial personality disorder

== ENCOUNTER 2023-10-28 13:19 | Emergency (ER) | payer MEDICAID, OTHER ==
[~2023-10-28] VITALS: Ht 157.5 cm; Wt 45.5 kg
[2023-10-28] MEDS ORDERED: HOME MED LIST COMPLETE! XX SCH (14:00)
[2023-10-28 14:10] LABS: HEMATOCRIT 42.7 % (42.0-52.0); HEMOGLOBIN 15.4 g/dl (13.5-17.5); MEAN CORPUSCULAR HEMOGLOBIN 28.3 pg (27.0-33.0); MEAN CORPUSCULAR HGB CONC 36.1 g/dl (32.0-36.5); MEAN CORPUSCULAR VOLUME 78.5 fl (80.0-96.0); PLATELET COUNT, AUTOMATED 158 10^3/uL (150-450); RED BLOOD COUNT 5.44 10^6/uL (4.30-6.10); WHITE BLOOD COUNT 9.4 10^3/uL (4.0-10.0)
[2023-10-28 14:32] LABS: ETHYL ALCOHOL (ETHANOL) < 0.003 % (0.000-0.010)
[2023-10-28 14:34] LABS: ALBUMIN 5.1 G/DL (3.2-5.2); ALKALINE PHOSPHATASE 43 U/L (46-116); ALT/SGPT 24 U/L (7.0-40); AST/SGOT 28 U/L (<34); BILIRUBIN,DIRECT 0.4 MG/DL (<0.4); BILIRUBIN,TOTAL 1.2 MG/DL (0.3-1.2); BLOOD UREA NITROGEN 18 MG/DL (9-23); CALCIUM LEVEL 9.7 MG/DL (8.5-10.1); CARBON DIOXIDE LEVEL 22 MMOL/L (20-31); CHLORIDE LEVEL 111 MMOL/L (98-107); CREATININE FOR GFR 1.01 MG/DL (0.70-1.30); GLOMERULAR FILTRATION RATE > 60.0 (>60); GLUCOSE, FASTING 103 MG/DL (60-100); POTASSIUM SERUM 3.9 MMOL/L (3.5-5.1); SALICYLATE LEVEL < 3.0 MG/DL (<30); SODIUM LEVEL 143 MMOL/L (136-145); TOTAL PROTEIN 7.6 G/DL (5.7-8.2)
[2023-10-28 14:37] LABS: THYROID STIMULATING HORMONE 0.779 uIU/ML (0.55-4.78)
[2023-10-28 14:42] LABS: AMPHETAMINES LEVEL URINE NEGATIVE (NEGATIVE); BARBITURATES URINE NEGATIVE (NEGATIVE); BENZODIAZEPINES URINE NEGATIVE (NEGATIVE); COCAINE METABOLITE URINE NEGATIVE (NEGATIVE)
[2023-10-28 14:43] LABS: CANNABINOIDS URINE POSITIVE (NEGATIVE); METHADONE URINE NEGATIVE (NEGATIVE); OPIATES URINE NEGATIVE (NEGATIVE); PHENCYCLIDINE URINE NEGATIVE (NEGATIVE)
[2023-10-28 18:41] VITALS: BP 108/66; TEMP 98.2; O2SAT 99
== END 2023-10-28 18:47 | disposition home or self-care (01) ==
LOC: M ED 13:19
DX: F32.A Depression, unspecified (principal); F41.9 Anxiety disorder, unspecified; F17.210 Nicotine dependence, cigarettes, uncomplicated; F12.10 Cannabis abuse, uncomplicated; Z88.0 Allergy status to penicillin; Z88.1 Allergy status to other antibiotic agents; Z91.041 Radiographic dye allergy status

== ENCOUNTER 2023-10-29 13:43 | Emergency (ER) | payer OTHER ==
[2023-10-29 15:00] LABS: HEMATOCRIT 45.1 % (42.0-52.0); HEMOGLOBIN 15.6 g/dl (13.5-17.5); MEAN CORPUSCULAR HEMOGLOBIN 27.4 pg (27.0-33.0); MEAN CORPUSCULAR HGB CONC 34.6 g/dl (32.0-36.5); MEAN CORPUSCULAR VOLUME 79.1 fl (80.0-96.0); PLATELET COUNT, AUTOMATED 152 10^3/uL (150-450); WHITE BLOOD COUNT 6.7 10^3/uL (4.0-10.0)
[2023-10-29 15:02] LABS: ETHYL ALCOHOL (ETHANOL) < 0.003 % (0.000-0.010)
[2023-10-29 15:03] LABS: ALBUMIN 5.3 G/DL (3.2-5.2); ALKALINE PHOSPHATASE 38 U/L (46-116); ALT/SGPT 26 U/L (7.0-40); AST/SGOT 32 U/L (<34); BILIRUBIN,DIRECT 0.5 MG/DL (<0.4); BILIRUBIN,TOTAL 1.4 MG/DL (0.3-1.2); BLOOD UREA NITROGEN 13 MG/DL (9-23); CALCIUM LEVEL 9.6 MG/DL (8.5-10.1); CARBON DIOXIDE LEVEL 22 MMOL/L (20-31); CHLORIDE LEVEL 109 MMOL/L (98-107); CREATININE FOR GFR 0.86 MG/DL (0.70-1.30); GLOMERULAR FILTRATION RATE > 60.0 (>60); GLUCOSE, FASTING 103 MG/DL (60-100); SALICYLATE LEVEL < 3.0 MG/DL (<30); SODIUM LEVEL 139 MMOL/L (136-145); TOTAL PROTEIN 7.8 G/DL (5.7-8.2)
[2023-10-29 15:22] LABS: AMPHETAMINES LEVEL URINE NEGATIVE (NEGATIVE); BARBITURATES URINE NEGATIVE (NEGATIVE); BENZODIAZEPINES URINE NEGATIVE (NEGATIVE); COCAINE METABOLITE URINE NEGATIVE (NEGATIVE); METHADONE URINE NEGATIVE (NEGATIVE); OPIATES URINE NEGATIVE (NEGATIVE); PHENCYCLIDINE URINE NEGATIVE (NEGATIVE)
[2023-10-29 15:23] VITALS: BP 124/72; TEMP 97.9; O2SAT 99
[2023-10-29 15:29] LABS: CANNABINOIDS URINE POSITIVE (NEGATIVE)
[2023-10-29] MEDS: ACETAMINOPHEN TAB 650MG DOSE (2X325MG) PO ONE (15:30)
[2023-10-29] MEDS ORDERED: HOME MED LIST COMPLETE! XX SCH (15:45)
== END 2023-10-29 18:04 | disposition home or self-care (01) ==
LOC: M ED 13:43
DX: Z04.6 Encounter for general psychiatric examination, requested by authority (principal); F60.0 Paranoid personality disorder; F60.2 Antisocial personality disorder; Z88.0 Allergy status to penicillin; Z88.1 Allergy status to other antibiotic agents; Z91.041 Radiographic dye allergy status

== ENCOUNTER 2024-01-30 18:58 | Emergency (ER) | payer OTHER ==
[~2024-01-30] VITALS: Ht 167.6 cm; Wt 80.0 kg
[~2024-01-30 18:58] MED LIST changes: -OLAN2.5T25 PO; +OLAN2.5T53 PO
[2024-01-30 19:12] VITALS: BP 125/93; TEMP 99.6; O2SAT 97
[2024-01-30 19:31] LABS: HEMATOCRIT 44.3 % (42.0-52.0); HEMOGLOBIN 15.4 g/dl (13.5-17.5); MEAN CORPUSCULAR HEMOGLOBIN 27.6 pg (27.0-33.0); MEAN CORPUSCULAR HGB CONC 34.8 g/dl (32.0-36.5); MEAN CORPUSCULAR VOLUME 79.5 fl (80.0-96.0); PLATELET COUNT, AUTOMATED 169 10^3/uL (150-450); RED BLOOD COUNT 5.57 10^6/uL (4.30-6.10); WHITE BLOOD COUNT 11.8 10^3/uL (4.0-10.0)
[2024-01-30 19:58] LABS: ETHYL ALCOHOL (ETHANOL) < 0.003 % (0.000-0.010)
[2024-01-30 20:00] LABS: SALICYLATE LEVEL < 3.0 MG/DL (<30)
[2024-01-30 20:01] LABS: ALBUMIN 5.1 G/DL (3.2-5.2); ALKALINE PHOSPHATASE 40 U/L (40-129); ALT/SGPT 15 U/L (7.0-40); AST/SGOT 15 U/L (<34); BILIRUBIN,DIRECT 0.5 MG/DL (<0.4); BILIRUBIN,TOTAL 1.7 MG/DL (0.3-1.2); BLOOD UREA NITROGEN 16 MG/DL (9-23); CALCIUM LEVEL 9.7 MG/DL (8.5-10.1); CARBON DIOXIDE LEVEL 11 MMOL/L (20-31); CHLORIDE LEVEL 111 MMOL/L (98-107); CREATININE FOR GFR 1.04 MG/DL (0.70-1.30); GLOMERULAR FILTRATION RATE > 60.0 (>60); GLUCOSE, FASTING 142 MG/DL (60-100); POTASSIUM SERUM 3.8 MMOL/L (3.5-5.1); SODIUM LEVEL 142 MMOL/L (136-145)
[2024-01-30 20:03] LABS: THYROID STIMULATING HORMONE 1.217 uIU/ML (0.55-4.78)
== END 2024-01-30 21:23 | disposition home or self-care (01) ==
LOC: M ED 18:58
DX: F43.0 Acute stress reaction (principal); F60.2 Antisocial personality disorder; Z88.0 Allergy status to penicillin; Z88.1 Allergy status to other antibiotic agents; Z91.041 Radiographic dye allergy status

== ENCOUNTER 2024-02-22 16:10 | Inpatient (IN) | payer MEDICAID, OTHER ==
[~2024-02-22] VITALS: Ht 160 cm; Wt 55.0 kg
[2024-02-22] MEDS: NICOTINE 14 MG/24 HR TRANSDERMAL TD SCH (08:49)
[2024-02-22 17:02] LABS: HEMATOCRIT 45.8 % (42.0-52.0); HEMOGLOBIN 15.7 g/dl (13.5-17.5); MEAN CORPUSCULAR HEMOGLOBIN 27.4 pg (27.0-33.0); MEAN CORPUSCULAR HGB CONC 34.3 g/dl (32.0-36.5); MEAN CORPUSCULAR VOLUME 80.1 fl (80.0-96.0); PLATELET COUNT, AUTOMATED 130 10^3/uL (150-450); RED BLOOD COUNT 5.72 10^6/uL (4.30-6.10); WHITE BLOOD COUNT 10.4 10^3/uL (4.0-10.0)
[2024-02-22 17:15] LABS: ETHYL ALCOHOL (ETHANOL) < 0.003 % (0.000-0.010)
[2024-02-22 17:16] LABS: SALICYLATE LEVEL < 3.0 MG/DL (<30)
[2024-02-22 17:17] LABS: ALBUMIN 4.9 G/DL (3.2-5.2); ALKALINE PHOSPHATASE 49 U/L (40-129); ALT/SGPT 21 U/L (7.0-40); AST/SGOT 18 U/L (<34); BILIRUBIN,DIRECT 0.4 MG/DL (<0.4); BILIRUBIN,TOTAL 1.4 MG/DL (0.3-1.2); BLOOD UREA NITROGEN 17 MG/DL (9-23); CARBON DIOXIDE LEVEL 21 MMOL/L (20-31); CHLORIDE LEVEL 108 MMOL/L (98-107); CREATININE FOR GFR 1.03 MG/DL (0.70-1.30); GLOMERULAR FILTRATION RATE > 60.0 (>60); GLUCOSE, FASTING 162 MG/DL (60-100); POTASSIUM SERUM 3.7 MMOL/L (3.5-5.1); SODIUM LEVEL 141 MMOL/L (136-145); TOTAL PROTEIN 7.7 G/DL (5.7-8.2)
[2024-02-22 17:18] LABS: THYROID STIMULATING HORMONE 1.091 uIU/ML (0.55-4.78)
[2024-02-22 17:26] LABS: AMPHETAMINES LEVEL URINE NEGATIVE (NEGATIVE)
[2024-02-22 17:27] LABS: BARBITURATES URINE NEGATIVE (NEGATIVE); BENZODIAZEPINES URINE NEGATIVE (NEGATIVE); COCAINE METABOLITE URINE NEGATIVE (NEGATIVE); METHADONE URINE NEGATIVE (NEGATIVE); OPIATES URINE NEGATIVE (NEGATIVE); PHENCYCLIDINE URINE NEGATIVE (NEGATIVE)
[2024-02-22 17:34] LABS: CANNABINOIDS URINE POSITIVE (NEGATIVE)
[2024-02-22] MEDS ORDERED: HOME MED LIST COMPLETE! XX SCH (19:05)
[2024-02-22] MEDS ORDERED: MAALOX 30 ML SUSP *UDC PO PRN (19:50)
[2024-02-22] MEDS ORDERED: OLANZapine 5 MG TAB PO PRN (19:50)
[2024-02-22] MEDS ORDERED: MOM 30ML SUSPENSION UDC PO PRN (19:50)
[2024-02-22] MEDS: ACETAMINOPHEN 325 MG TAB PO ONE (19:53)
[2024-02-22] MEDS: diphenhydrAMINE 25MG CAP PO PRN (21:53)
[2024-02-22 22:36] VITALS: BP 134/90; TEMP 97.9; O2SAT 100
[2024-02-22] MEDS: traZODone 50 MG TAB PO PRN (23:26)
[2024-02-23 06:25] VITALS: BP 111/56; TEMP 98.5; O2SAT 100
[2024-02-23 16:08] VITALS: BP 124/88; TEMP 97.9; O2SAT 99
[2024-02-23] MEDS ORDERED: SENNA 8.6 MG TAB (SENOKOT) PO PRN (18:55)
[2024-02-23] MEDS ORDERED: MIRALAX *UNIT DOSE* 17GM PACKET PO PRN (18:55)
[2024-02-23] MEDS: QUEtiapine FUMARATE 50MG TAB PO SCH (20:49)
[2024-02-24 06:26] VITALS: BP 127/79; TEMP 98.2; O2SAT 97
[2024-02-24 06:28] VITALS: BP 97/52
[2024-02-24 06:34] VITALS: BP_SYST 115; BP_SYST 127; BP_SYST 97; BP_DIAS 52; BP_DIAS 74; BP_DIAS 79
[2024-02-24 15:40] VITALS: BP 118/80; TEMP 97.9; O2SAT 98
[2024-02-25 06:44] VITALS: BP 104/53; TEMP 97.8; O2SAT 100
[2024-02-25] MEDS: ACETAMINOPHEN 325 MG TAB PO PRN (10:05)
[2024-02-25 16:32] VITALS: BP 129/76; TEMP 98.3; O2SAT 98
[2024-02-25] MEDS: IBUPROFEN 400MG TAB PO PRN (17:43)
[2024-02-26 06:41] VITALS: BP 123/66; TEMP 97.2; O2SAT 99
[2024-02-26] MEDS ORDERED: OLAN1TAB16 PO (10:10)
[2024-02-26] MEDS ORDERED: QUET50TA4 PO (10:12)
[2024-02-26] MEDS ORDERED: OLANZapine 5 MG TAB PO SCH (21:00)
== END 2024-02-26 11:09 | disposition home or self-care (01) | DRG 753 ==
LOC: M ED 16:10 → M ED INP 19:50 → M PSY 21:14
PROVIDERS: ADMIT Psychiatry & Neurology Neurology; ATTEND Psychiatry & Neurology Psychiatry
DX: F31.9 Bipolar disorder, unspecified (principal); Z63.8 Other specified problems related to primary support group; Z62.810 Personal history of physical and sexual abuse in childhood; Z62.811 Personal history of psychological abuse in childhood; R45.851 Suicidal ideations; Q87.2 Congenital malformation syndromes predominantly involving limbs; J45.40 Moderate persistent asthma, uncomplicated; K58.1 Irritable bowel syndrome with constipation; K21.9 Gastro-esophageal reflux disease without esophagitis; Z91.51 Personal history of suicidal behavior; Z59.00 Homelessness unspecified; Z88.0 Allergy status to penicillin; Z88.1 Allergy status to other antibiotic agents; Z91.041 Radiographic dye allergy status

== ENCOUNTER → 2024-05-01 | Outpatient (CLI) | payer OTHER ==
[~2024-05-01] MED LIST changes: +OLAN1TAB16 PO
[2024-05-01 15:12] LABS: HEMATOCRIT 43.8 % (42.0-52.0); HEMOGLOBIN 15.1 g/dl (13.5-17.5); MEAN CORPUSCULAR HEMOGLOBIN 27.7 pg (27.0-33.0); MEAN CORPUSCULAR HGB CONC 34.5 g/dl (32.0-36.5); MEAN CORPUSCULAR VOLUME 80.2 fl (80.0-96.0); PLATELET COUNT, AUTOMATED 108 10^3/uL (150-450); RED BLOOD COUNT 5.46 10^6/uL (4.30-6.10); WHITE BLOOD COUNT 6.9 10^3/uL (4.0-10.0)
[2024-05-01 15:29] LABS: PERCENT SATURATION 28.9 % (19.7-50.0)
[2024-05-01 15:32] LABS: FERRITIN 90.4 NG/ML (10.5-307.3); THYROID STIMULATING HORMONE 1.224 uIU/ML (0.55-4.78); TOTAL 25(OH) VITAMIN D 10.8 NG/ML (20.0-100.0)
[2024-05-01 15:33] LABS: FOLATE 16.4 NG/ML (>5.4)
[2024-05-01 15:34] LABS: FREE T4 1.28 NG/DL (0.89-1.76)
[2024-05-02 15:02] LABS: ALMOND IGE FOOD < 0.10 kU/L (<0.10); BRAZIL NUT CLASS IGE <0.10 ABSENT (<0.10); BRAZIL NUT IGE < 0.10 kU/L (<0.10); CASHEW NUT IGE FOOD < 0.10 kU/L (<0.10); CODFISH IGE FOOD 0.14 kU/L (<0.10); COWS MILK FOOD < 0.10 kU/L (<0.10); EGG WHITE FOOD 0.3 kU/L (<0.10); HAZELNUT IGE FOOD < 0.10 kU/L (<0.10); MACADAMIA NUT < 0.10 kU/L (<0.10); MACADAMIA NUT CLASS IGE <0.10 ABSENT (<0.10); PEANUT IGE FOOD < 0.10 kU/L (<0.10); SALMON IGE FOOD < 0.10 kU/L (<0.10); SCALLOP IGE FOOD < 0.10 kU/L (<0.10); SESAME SEED IGE FOOD < 0.10 kU/L (<0.10); SHRIMP IGE FOOD < 0.10 kU/L (<0.10); SOYBEAN IGE FOOD < 0.10 kU/L (<0.10); TUNA IGE FOOD < 0.10 kU/L (<0.10); WALNUT IGE FOOD < 0.10 kU/L (<0.10); WHEAT IGE FOOD < 0.10 kU/L (<0.10)
== END ==
LOC: M LAB 12:49
PROVIDERS: ATTEND Nurse Practitioner Family
DX: K21.9 Gastro-esophageal reflux disease without esophagitis (principal)

== ENCOUNTER → 2024-05-10 | Outpatient (CLI) | payer OTHER | LOC: M RAD 08:00 | PROVIDERS: ATTEND Nurse Practitioner Family | DX: K21.9 Gastro-esophageal reflux disease without esophagitis (principal) ==

== ENCOUNTER 2024-06-27 16:15 | Emergency (ER) | payer OTHER ==
[~2024-06-27] VITALS: Ht 157.5 cm; Wt 44.8 kg
[2024-06-27] MEDS ORDERED: OLAN2.5T53 (16:27)
[2024-06-27] MEDS ORDERED: QUET200T79 (16:27)
[2024-06-27] MEDS ORDERED: PANT40TA29 (16:27)
[2024-06-27 17:26] LABS: KETONE, URINE AUTO RFX 1+ mg/dL (NEGATIVE); LEUKOCYTE ESTERASE UR AUTO RFX NEGATIVE (NEGATIVE); MUCUS, URINE RFX LARGE (NEGATIVE); NITRITE, URINE AUTO RFX NEGATIVE (NEGATIVE); RBC, URINE AUTO RFX 0 /HPF (0-3); SQUAM EPITHELIAL CELL UR AURFX 0 /HPF (0-6); WBC, URINE AUTO RFX 2 /HPF (0-3)
[2024-06-27 17:29] LABS: BASO # 0.1 10^3/uL (0.0-0.2); BASO % 0.6 % (0.0-1.0); EOS # 0.3 10^3/uL (0.0-0.5); EOS % 3.2 % (0.0-3.0); HEMATOCRIT 46.9 % (42.0-52.0); HEMOGLOBIN 16.8 g/dl (13.5-17.5); LYMPH # 1.4 10^3/uL (1.5-5.0); LYMPH % 16.3 % (24.0-44.0); MEAN CORPUSCULAR HEMOGLOBIN 27.9 pg (27.0-33.0); MEAN CORPUSCULAR HGB CONC 35.8 g/dl (32.0-36.5); MEAN CORPUSCULAR VOLUME 77.9 fl (80.0-96.0); MONO # 0.3 10^3/uL (0.0-0.8); MONO % 3.7 % (2.0-8.0); NEUTROPHILS # 6.3 10^3/uL (1.5-8.5); NEUTROPHILS % 75.7 % (36.0-66.0); PLATELET COUNT, AUTOMATED 108 10^3/uL (150-450); RED BLOOD COUNT 6.02 10^6/uL (4.30-6.10); WHITE BLOOD COUNT 8.4 10^3/uL (4.0-10.0)
[2024-06-27 17:46] LABS: LIPASE 22 U/L (12-53)
[2024-06-27 17:48] LABS: ALBUMIN 5.2 G/DL (3.2-5.2); ALKALINE PHOSPHATASE 53 U/L (40-129); ALT/SGPT 16 U/L (7.0-40); AST/SGOT 14 U/L (<34); BILIRUBIN,DIRECT 0.6 MG/DL (<0.4); BILIRUBIN,TOTAL 1.8 MG/DL (0.3-1.2); BLOOD UREA NITROGEN 15 MG/DL (9-23); CALCIUM LEVEL 9.7 MG/DL (8.5-10.1); CARBON DIOXIDE LEVEL 22 MMOL/L (20-31); CHLORIDE LEVEL 107 MMOL/L (98-107); CREATININE FOR GFR 0.95 MG/DL (0.70-1.30); GLOMERULAR FILTRATION RATE > 90.0 (>60); GLUCOSE, FASTING 97 MG/DL (60-100); POTASSIUM SERUM 3.7 MMOL/L (3.5-5.1); SODIUM LEVEL 140 MMOL/L (136-145); TOTAL PROTEIN 8.1 G/DL (5.7-8.2)
[2024-06-27] MEDS: ONDANSETRON 4MG ORAL DISINTEGRATING TAB PO ONE (21:02)
[2024-06-27] MEDS: MAALOX 30 ML SUSP *UDC PO ONE (21:02)
[2024-06-27] MEDS: SUCRALFATE SUSP 1GM/10ML UD PO ONE (21:02)
[2024-06-27] MEDS: LIDOCAINE VISCOUS 2% SOLN 15ML UDC MT ONE (21:02)
[2024-06-27] MEDS ORDERED: ONDA-282 PO (21:16)
[2024-06-27] MEDS ORDERED: PANT40TA29 PO (21:16)
[2024-06-27] MEDS ORDERED: SUCR1SS PO (21:16)
[2024-06-27 21:31] VITALS: BP 127/75; TEMP 98.7; O2SAT 98
== END 2024-06-27 21:34 | disposition home or self-care (01) ==
LOC: M ED 16:15
DX: K29.70 Gastritis, unspecified, without bleeding (principal); A09 Infectious gastroenteritis and colitis, unspecified; K58.9 Irritable bowel syndrome, unspecified; F12.10 Cannabis abuse, uncomplicated; Z88.0 Allergy status to penicillin; Z88.1 Allergy status to other antibiotic agents; Z91.041 Radiographic dye allergy status; Z79.899 Other long term (current) drug therapy

== ENCOUNTER 2024-09-28 18:35 | Emergency (ER) | payer OTHER ==
[~2024-09-28] VITALS: Ht 157.5 cm; Wt 42.5 kg
[~2024-09-28 18:35] MED LIST changes: +OLAN2.5T53; +ONDA-282 PO; +PANT40TA29; +PANT40TA29 PO; +QUET200T79; +SUCR1SS PO
[2024-09-28 18:44] VITALS: BP 129/63; TEMP 98.7; O2SAT 98
== END 2024-09-28 20:46 | disposition left against medical advice (07) ==
LOC: M ED 18:35
DX: Z53.21 Procedure and treatment not carried out due to patient leaving prior to being seen by health care provider (principal)

== ENCOUNTER → 2024-12-04 | Outpatient (REF) | payer OTHER | LOC: M SFHCPLAZ 15:16 | PROVIDERS: ATTEND Nurse Practitioner Family | DX: J02.9 Acute pharyngitis, unspecified (principal) ==

== ENCOUNTER 2024-12-17 09:10 | Inpatient (IN) | payer OTHER, MEDICAID ==
[~2024-12-17] VITALS: Ht 157.5 cm; Wt 43.7 kg
[~2024-12-17 09:10] MED LIST changes: -ALBU1.25 NEB; -CETI-24 PO; -D-101000 PO; -FERR325T19 PO; -FLUTISP
[2024-12-17 10:39] LABS: PLATELET COUNT, AUTOMATED 148 10^3/uL (150-450)
[2024-12-17 11:22] LABS: ALT/SGPT 13 U/L (7.0-40); AST/SGOT 20 U/L (<34); CALCIUM LEVEL 10.0 MG/DL (8.5-10.1); CARBON DIOXIDE LEVEL 22.1 MMOL/L (20-31); CHLORIDE LEVEL 108 MMOL/L (98-107); CREATININE FOR GFR 0.90 MG/DL (0.70-1.30); GLOMERULAR FILTRATION RATE > 90.0 (>60); POTASSIUM SERUM 4.0 MMOL/L (3.5-5.1); SODIUM LEVEL 142 MMOL/L (136-145)
[2024-12-17 11:23] LABS: SALICYLATE LEVEL < 3.0 MG/DL (<30)
[2024-12-17 11:43] LABS: AMPHETAMINES LEVEL URINE NEGATIVE (NEGATIVE); BARBITURATES URINE NEGATIVE (NEGATIVE); BENZODIAZEPINES URINE NEGATIVE (NEGATIVE); CANNABINOIDS URINE POSITIVE (NEGATIVE); COCAINE METABOLITE URINE NEGATIVE (NEGATIVE); METHADONE URINE NEGATIVE (NEGATIVE); OPIATES URINE NEGATIVE (NEGATIVE); PHENCYCLIDINE URINE NEGATIVE (NEGATIVE)
[2024-12-17] MEDS ORDERED: ACETAMINOPHEN 325 MG TAB PO PRN (12:45)
[2024-12-17] MEDS ORDERED: IBUPROFEN 400 MG TAB PO PRN (12:45)
[2024-12-17] MEDS ORDERED: MOM 30 ML SUSPENSION UDC PO PRN (12:45)
[2024-12-17 12:50] LABS: ETHYL ALCOHOL (ETHANOL) < 0.003 % (0.000-0.010)
[2024-12-17] MEDS ORDERED: ALBU1.25 NEB (13:14)
[2024-12-17] MEDS ORDERED: FLUTISP (13:14)
[2024-12-17] MEDS ORDERED: CETI-24 PO (13:14)
[2024-12-17] MEDS ORDERED: D-101000 PO (13:14)
[2024-12-17] MEDS ORDERED: PANT-23 PO (13:14)
[2024-12-17] MEDS ORDERED: FERR325T19 PO (13:14)
[2024-12-17] MEDS ORDERED: HOME MED LIST COMPLETE! XX SCH (13:15)
[2024-12-17 13:54] VITALS: BP 112/74; TEMP 97.6; O2SAT 98
[2024-12-17] MEDS: OLANZapine 5 MG TAB PO ONE (18:25)
[2024-12-17] MEDS: MAALOX 30 ML SUSP *UDC PO PRN (18:58)
[2024-12-18 08:43] VITALS: BP 122/59; TEMP 97.7; O2SAT 97
[2024-12-18] MEDS: NICOTINE 21 MG/24 HR 1 EA TRANSDERMAL TD SCH (09:00)
[2024-12-18] MEDS ORDERED: ALBUTEROL SULFATE 2.5 MG/0.5 ML INH CONCENTRATE NEB SOLN NEB PRN (18:15)
[2024-12-18] MEDS: QUEtiapine FUMARATE 50MG TAB PO SCH (20:38)
[2024-12-18] MEDS: CETIRIZINE 10 MG TAB PO SCH (20:39)
[2024-12-18] MEDS: PANTOPRAZOLE 40MG TAB PO SCH (20:39)
[2024-12-19 06:50] VITALS: BP 119/64; TEMP 96; O2SAT 100
[2024-12-19] MEDS: FLUTICASONE PROPIONATE 0.05% NASAL SPRAY 16 GM SCH (09:00)
[2024-12-19] MEDS: ASCORBIC ACID 500 MG TAB PO SCH (09:14)
[2024-12-19] MEDS: FERROUS SULFATE 325 MG TAB PO SCH (09:14)
[2024-12-19 16:00] VITALS: BP 105/58; TEMP 98.4; O2SAT 99
[2024-12-20 07:01] VITALS: BP 115/63; TEMP 97.7; O2SAT 100
[2024-12-20 15:54] VITALS: BP 131/86; TEMP 98.4; O2SAT 99
[2024-12-20] MEDS: traZODone 50 MG TAB PO PRN (21:00)
[2024-12-21 06:28] VITALS: BP 108/57; TEMP 97.2; O2SAT 98
[2024-12-21 15:54] VITALS: BP 125/75; TEMP 98.2; O2SAT 97
[2024-12-21 18:37] VITALS: BP 118/75; TEMP 98.4
[2024-12-22 06:21] VITALS: BP 129/80; TEMP 98; O2SAT 100
[2024-12-22 15:47] VITALS: BP 135/81; TEMP 97.1; O2SAT 98
[2024-12-23 06:32] VITALS: BP 119/58; TEMP 97.4; O2SAT 100
[2024-12-23] MEDS ORDERED: QUET50TA4 PO (10:16)
[2024-12-23] MEDS ORDERED: OLAN2.5T53 PO (10:16)
[2024-12-24] MEDS ORDERED: BACI500O8 TOP (20:36)
== END 2024-12-23 12:33 | disposition home or self-care (01) | DRG 753 ==
LOC: M ED 09:10 → M ED INP 12:41 → M PSY 13:49
PROVIDERS: ADMIT General Practice; ATTEND Psychiatry & Neurology Psychiatry
DX: F31.9 Bipolar disorder, unspecified (principal); Q87.2 Congenital malformation syndromes predominantly involving limbs; F79 Unspecified intellectual disabilities; Q77.4 Achondroplasia; R45.850 Homicidal ideations; F60.2 Antisocial personality disorder; F60.0 Paranoid personality disorder; F12.10 Cannabis abuse, uncomplicated; F29 Unspecified psychosis not due to a substance or known physiological condition; J45.40 Moderate persistent asthma, uncomplicated; F43.9 Reaction to severe stress, unspecified; F63.81 Intermittent explosive disorder; K58.1 Irritable bowel syndrome with constipation; F45.1 Undifferentiated somatoform disorder; F17.200 Nicotine dependence, unspecified, uncomplicated; K21.9 Gastro-esophageal reflux disease without esophagitis; Z91.148 Patient's other noncompliance with medication regimen for other reason; Z56.0 Unemployment, unspecified; Z91.51 Personal history of suicidal behavior; Z79.899 Other long term (current) drug therapy; Z88.0 Allergy status to penicillin; Z88.1 Allergy status to other antibiotic agents; Z91.040 Latex allergy status; Z91.041 Radiographic dye allergy status

== ENCOUNTER → 2024-12-17 | Outpatient (CLI) | payer OTHER ==
[~2024-12-17] MED LIST changes: +ALBU1.25 NEB; +CETI-24 PO; +D-101000 PO; +FERR325T19 PO; +FLUTISP
[2024-12-17 11:28] LABS: PLATELET COUNT, AUTOMATED 144 10^3/uL (150-450)
[2024-12-17 14:57] LABS: ALT/SGPT 16 U/L (7.0-40); AST/SGOT 22 U/L (<34); CALCIUM LEVEL 10.0 MG/DL (8.5-10.1); CARBON DIOXIDE LEVEL 23 MMOL/L (20-31); CHLORIDE LEVEL 103 MMOL/L (98-107); CREATININE FOR GFR 0.98 MG/DL (0.70-1.30); GLOMERULAR FILTRATION RATE > 90.0 (>60); IRON (FE) 107 UG/DL (65-175); MAGNESIUM LEVEL 2.2 MG/DL (1.8-2.4); PERCENT SATURATION 37.9 % (19.7-50.0); POTASSIUM SERUM 3.5 MMOL/L (3.5-5.1); SODIUM LEVEL 141 MMOL/L (136-145)
[2024-12-17 14:58] LABS: TOTAL 25(OH) VITAMIN D 19.5 NG/ML (20.0-100.0)
== END ==
LOC: M PLALAB 08:46
PROVIDERS: ATTEND Nurse Practitioner Family
DX: R63.4 Abnormal weight loss (principal); E61.1 Iron deficiency; Z13.88 Encounter for screening for disorder due to exposure to contaminants; E55.9 Vitamin D deficiency, unspecified

== ENCOUNTER 2024-12-24 15:31 | Emergency (ER) | payer OTHER ==
[~2024-12-24] VITALS: Ht 157.5 cm; Wt 41.8 kg
[~2024-12-24 15:31] MED LIST changes: +ALBU1.25 NEB; +CETI-24 PO; +D-101000 PO; +FERR325T19 PO; +FLUTISP
[2024-12-24] MEDS: LIDOCAINE 1% MDV 20 ML VIAL SC ONE (20:00)
[2024-12-24] MEDS: TETANUS/DIPHTH/ACEL. PERTUSSIS 0.5 ML SYR IM.IMMUN ONE (20:05)
[2024-12-24] MEDS ORDERED: BACI500O8 TOP (20:36)
[2024-12-24 20:46] VITALS: BP 111/59; TEMP 96.3; O2SAT 98
[2024-12-24] MEDS: NEOSPORIN OINT 0.9 GM PKT TOP ONE (20:46)
== END 2024-12-24 20:50 | disposition home or self-care (01) ==
LOC: M ED 15:31 → EDBD 15:31 → M ED 20:50
DX: S61.212A Laceration without foreign body of right middle finger without damage to nail, initial encounter (principal); Y92.019 Unspecified place in single-family (private) house as the place of occurrence of the external cause; Y93.9 Activity, unspecified; Y99.9 Unspecified external cause status; W26.8XXA Contact with other sharp object(s), not elsewhere classified, initial encounter; Z23 Encounter for immunization; Z88.0 Allergy status to penicillin; Z88.1 Allergy status to other antibiotic agents; Z91.040 Latex allergy status; Z91.041 Radiographic dye allergy status; Z79.51 Long term (current) use of inhaled steroids; Z79.2 Long term (current) use of antibiotics; Z79.899 Other long term (current) drug therapy

== ENCOUNTER → 2025-01-06 | Outpatient (REF) | payer OTHER ==
[~2025-01-06] MED LIST changes: +BACI500O8 TOP
== END ==
LOC: M SFHCPLAZ 12:39
PROVIDERS: ATTEND Student in an Organized Health Care Education/Training Program
DX: J98.8 Other specified respiratory disorders (principal)

== ENCOUNTER → 2025-02-17 | Outpatient (CLI) | payer OTHER ==
[~2025-02-17] MED LIST changes: +E-Z-GAS II EFFERVESCENT PACKET (SODIUM BICARB./CITRIC ACID/SIMETHICONE) As Ordered ONE; +E-Z-HD 98% w/w 340 GM SUSP BTL As Ordered ONE; +E-Z-PAQUE 96% w/w SUSP 176 GM BTL As Ordered ONE
== END ==
LOC: M RAD 08:05
PROVIDERS: ATTEND Nurse Practitioner Family
DX: K21.9 Gastro-esophageal reflux disease without esophagitis (principal); R63.4 Abnormal weight loss